=== PATIENT | male | born 1970 | race Caucasian/White ===

== ENCOUNTER 2017-07-02 00:05 | Emergency (ER) | payer MEDICAID ==
[2017-07-02] MEDS ORDERED: VANCOMYCIN PER PHARMACY MC ×2 (00:30)
[2017-07-02] MEDS ORDERED: PIP/TAZO PER PHARMACY MC ×2 (00:30)
[2017-07-02 00:33] LABS: ADD MAN DIFF? NO
[2017-07-02 00:37] LABS: BASO # 0.1 x10^3/uL (0.0-0.2); BASO % 1 % (0-3); EOS # 0.2 x10^3/uL (0.0-0.7); EOS % 1 % (0-3); HEMATOCRIT 43.4 % (39.0-53.0); HEMOGLOBIN 13.9 g/dL (13.0-17.5); LYMPH # 3.2 x10^3/uL (1.0-4.8); LYMPH % 24 % (24-48); MEAN CORPUSCULAR HEMOGLOBIN 25 pg (25-35); MEAN CORPUSCULAR HGB CONC 32 g/dL (31-37); MEAN CORPUSCULAR VOLUME 77 fL (79-100); MONO # 1.2 x10^3/uL (0.0-1.1); MONO % 9 % (0-9); NEUT # 8.6 x10^3uL (1.8-7.7); NEUT % 64 % (31-73); PLATELET COUNT 216 x10^3/uL (140-400); RED BLOOD COUNT 5.68 x10^6/uL (4.30-5.70); RED CELL DISTRIBUTION WIDTH 15.9 % (11.5-14.5); WHITE BLOOD COUNT 13.3 x10^3/uL (4.0-11.0)
[2017-07-02 00:54] LABS: LIPASE 159 U/L (73-393)
[2017-07-02] MEDS: IV NORMAL SALINE 1000ML BAG 1,000 ML IV ×2 (00:57)
[2017-07-02 01:02] LABS: LACTIC ACID 1.4 mmol/L (0.4-2.0)
[2017-07-02 01:03] LABS: TROPONINI 0.032 ng/mL (0.000-0.055)
[2017-07-02 01:21] LABS: BILIRUBIN,URINE NEGATIVE (NEG); CLARITY,URINE CLEAR; COLOR,URINE YELLOW; GLUCOSE,URINE NEGATIVE (NEG); NITRITE,URINE NEGATIVE (NEG); PROTEIN,URINE >=300 mg/dL (NEG-TRACE)
[2017-07-02] MEDS ORDERED: CONTRAST GIVEN MC ×2 (01:30)
[2017-07-02] MEDS: PIPERACILLIN/TAZOBACTAM 4.5 GM in IV NORMAL SALINE 100ML 100 ML IV ×2 (01:36→06:15)
[2017-07-02] MEDS: BENZONATATE 100 MG CAPSULE. PO ×2 (01:36)
[2017-07-02 01:47] LABS: AGAP ISTAT 15 mmol/L (6-14); BUN ISTAT 14 mg/dL (8-26); CHLORIDE ISTAT 95 mmol/L (98-110); CREATININE ISTAT 1.2 mg/dL (0.5-1.4); GLUCOSE ISTAT 134 mg/dL (70-99); HEMATOCRIT ISTAT 49 % (37-52); HEMOGLOBIN ISTAT 16.7 g/dL (14-18); ION CA ISTAT 1.15 mmol/L (1.13-1.32); POTASSIUM ISTAT 3.8 mmol/L (3.5-5.0); SODIUM ISTAT 140 mmol/L (135-145); TOT CO2 ISTAT 34 mmol/L (23-32)
[2017-07-02 01:54] LABS: BACTERIA,URINE 0 /HPF (0-FEW); RBC,URINE OCC /HPF (0-2); SQUAMOUS EPITHELIAL CELL,UR MOD /LPF; WBC,URINE OCC /HPF (0-4)
[2017-07-02] MEDS: IOHEXOL 300 MG/ML 100ML VIAL. IV ×2 (02:11)
[2017-07-02] MEDS: VANCOMYCIN 2 GM in IV DEXTROSE 5 %-0.2 % NACL 500 ML IV (02:22)
[2017-07-02 02:27] LABS: ANION GAP 5 (6-14); BLOOD UREA NITROGEN 14 mg/dL (8-26); BUN/CREATININE RATIO 13 (6-20); CALCIUM 8.9 mg/dL (8.5-10.1); CARBON DIOXIDE 35 mmol/L (21-32); CHLORIDE 99 mmol/L (98-107); CREATININE 1.1 mg/dL (0.7-1.3); GFR 72.4; GLUCOSE 142 mg/dL (70-99); POTASSIUM 3.8 mmol/L (3.5-5.1); SODIUM 139 mmol/L (136-145)
[2017-07-02 02:32] LABS: ALBUMIN 2.8 g/dL (3.4-5.0); ALBUMIN/GLOBULIN RATIO 0.6 (1.0-1.7); ALK PHOS 105 U/L (46-116); ALT (SGPT) 23 U/L (16-63); AST (SGOT) 25 U/L (15-37); TOTAL BILIRUBIN 0.8 mg/dL (0.2-1.0); TOTAL PROTEIN 7.6 g/dL (6.4-8.2)
[2017-07-02] MEDS: cloNIDine HCL 0.1 MG TABLET PO ×2 (03:05)
[2017-07-02 03:19] LABS: NT-PRO BNP 569 pg/mL (0-124)
[2017-07-02] MEDS: LABETALOL 20 MG/4 ML DISP.SYRIN. IVP ×2 (04:12)
[2017-07-02 04:47] LABS: BASE EXCESS ABG 4 mmol/L (-3-3); HCO3 ABG 33 mmol/L (21-28); PH ABG 7.28 (7.35-7.45); PO2 ABG 83 mmHg (75-108); SAT O2 ABG 95 % (92-99)
[2017-07-02 05:09] LABS: PCO2 ABG 73 mmHg (35-46)
[2017-07-02] MEDS ORDERED: IPRATRPIUM/ALBUTEROL 0.5/2.5MG 3 ML NEBU. ×2 (05:22)
[2017-07-02] MEDS: FUROSEMIDE 40 MG/4 ML VIAL. IVP ×2 (06:23)
== END 2017-07-02 07:35 | disposition short-term general hospital (02) ==
LOC: ER 00:05
DX: N49.2 Inflammatory disorders of scrotum (principal); I11.0 Hypertensive heart disease with heart failure; I50.9 Heart failure, unspecified; R09.02 Hypoxemia; N43.3 Hydrocele, unspecified; Z88.8 Allergy status to other drugs, medicaments and biological substances; Z91.041 Radiographic dye allergy status
CPT/HCPCS: 36415; 36600; 71045; 74177; 76870; 80047; 80053; 81001; 82805; 83605; 83690; 83880; 84484; 85025; 87040; 93005; 96361; 96365; 96366; 96368; 96375; 99285-25; 99291-25; J1940; J2543; J3370; J3490; J7030; Q9967

== ENCOUNTER 2018-01-01 16:02 | Inpatient (IN) | payer SELFPAY, MEDICAID ==
[2018-01-01] MEDS: fentaNYL PF VIAL 100 MCG/2 ML VIAL IV (17:01)
[2018-01-01 17:02] LABS: ADD MAN DIFF? NO
[2018-01-01 17:04] LABS: BASO # 0.1 x10^3/uL (0.0-0.2); BASO % 1 % (0-3); EOS # 0.1 x10^3/uL (0.0-0.7); EOS % 1 % (0-3); HEMATOCRIT 42.7 % (39.0-53.0); HEMOGLOBIN 13.8 g/dL (13.0-17.5); LYMPH # 2.7 x10^3/uL (1.0-4.8); LYMPH % 28 % (24-48); MEAN CORPUSCULAR HEMOGLOBIN 26 pg (25-35); MEAN CORPUSCULAR HGB CONC 32 g/dL (31-37); MEAN CORPUSCULAR VOLUME 81 fL (79-100); MONO # 0.9 x10^3/uL (0.0-1.1); MONO % 9 % (0-9); NEUT # 5.8 x10^3uL (1.8-7.7); NEUT % 61 % (31-73); PLATELET COUNT 211 x10^3/uL (140-400); RED BLOOD COUNT 5.31 x10^6/uL (4.30-5.70); RED CELL DISTRIBUTION WIDTH 15.9 % (11.5-14.5); WHITE BLOOD COUNT 9.6 x10^3/uL (4.0-11.0)
[2018-01-01 17:17] LABS: ANION GAP 2 (6-14); BLOOD UREA NITROGEN 13 mg/dL (8-26); BUN/CREATININE RATIO 13 (6-20); CARBON DIOXIDE 36 mmol/L (21-32); CHLORIDE 100 mmol/L (98-107); GFR 80.8; GLUCOSE 150 mg/dL (70-99); POTASSIUM 4.1 mmol/L (3.5-5.1); SODIUM 138 mmol/L (136-145)
[2018-01-01 17:23] LABS: ALBUMIN 2.6 g/dL (3.4-5.0); ALBUMIN/GLOBULIN RATIO 0.6 (1.0-1.7); ALK PHOS 95 U/L (46-116); ALT (SGPT) 49 U/L (16-63); AST (SGOT) 30 U/L (15-37); TOTAL BILIRUBIN 0.7 mg/dL (0.2-1.0); TOTAL PROTEIN 7.2 g/dL (6.4-8.2)
[2018-01-01 17:28] LABS: LACTIC ACID 1.2 mmol/L (0.4-2.0)
[2018-01-01] MEDS ORDERED: ONDANSETRON PF 4 MG/2 ML VIAL. IV (17:45)
[2018-01-01] MEDS ORDERED: fentaNYL PF VIAL 100 MCG/2 ML VIAL IV (17:45)
[2018-01-01] MEDS: VANCOMYCIN 2 GM in IV NORMAL SALINE 500ML BAG 500 ML IV (18:10)
[2018-01-01] MEDS: VANCOMYCIN PER PHARMACY MC (18:36)
[2018-01-01] MEDS: amLODIPine BESYLATE 10 MG TABLET PO (20:28)
[2018-01-01] MEDS: METOPROLOL SUCC 24HR ER 50 MG TAB.ER.24H. PO (20:29)
[2018-01-01] MEDS: LACTOBACILLUS RHAMNOSUS GG 1 CAPSULE. PO (22:02)
[2018-01-02] MEDS ORDERED: PNEUMOCOCCAL VAX SCREEN BY RX. MC (00:45)
[2018-01-02] MEDS: ACETAMINOPHEN 325 MG TABLET. PO (02:52)
[2018-01-02] MEDS: VANCOMYCIN 1.5 GM in IV NORMAL SALINE 500ML BAG 500 ML IV ×3 (02:53→18:12)
[2018-01-02] MEDS: KETOROLAC 30 MG/ML INJ. IV (04:11)
[2018-01-02 04:23] LABS: ADD MAN DIFF? NO
[2018-01-02 04:31] LABS: BASO # 0.1 x10^3/uL (0.0-0.2); BASO % 1 % (0-3); EOS # 0.2 x10^3/uL (0.0-0.7); EOS % 2 % (0-3); HEMATOCRIT 42.5 % (39.0-53.0); HEMOGLOBIN 13.6 g/dL (13.0-17.5); LYMPH # 2.2 x10^3/uL (1.0-4.8); LYMPH % 23 % (24-48); MEAN CORPUSCULAR HEMOGLOBIN 26 pg (25-35); MEAN CORPUSCULAR HGB CONC 32 g/dL (31-37); MEAN CORPUSCULAR VOLUME 81 fL (79-100); MONO # 1.1 x10^3/uL (0.0-1.1); MONO % 11 % (0-9); NEUT # 6.3 x10^3uL (1.8-7.7); NEUT % 64 % (31-73); PLATELET COUNT 219 x10^3/uL (140-400); RED BLOOD COUNT 5.25 x10^6/uL (4.30-5.70); RED CELL DISTRIBUTION WIDTH 15.7 % (11.5-14.5); WHITE BLOOD COUNT 9.9 x10^3/uL (4.0-11.0)
[2018-01-02 04:52] LABS: GFR 80.8
[2018-01-02] MEDS: amLODIPine BESYLATE 10 MG TABLET PO (08:15)
[2018-01-02] MEDS: LACTOBACILLUS RHAMNOSUS GG 1 CAPSULE. PO ×2 (08:15→20:59)
[2018-01-02] MEDS: METOPROLOL SUCC 24HR ER 50 MG TAB.ER.24H. PO ×2 (08:15→20:59)
[2018-01-02] MEDS: PNEUMOC CONJ VACC 23-VALENT 0.5 ML VIAL. VAX IM (08:18)
[2018-01-02] MEDS ORDERED: oxyCODONE/APAP 5/325 1 TAB TABLET PO (09:45)
[2018-01-02] MEDS: IV NORMAL SALINE 1000ML BAG 1,000 ML IV (10:13)
[2018-01-02] MEDS: NYSTATIN TOPICAL POWDER 15GM BOTTLE. TP ×2 (10:14→20:59)
[2018-01-02] MEDS ORDERED: METOPROLOL TARTRATE 5 MG/5 ML VIAL. IVP (12:00)
[2018-01-02] MEDS ORDERED: ONDANSETRON PF 4 MG/2 ML VIAL. IV (12:00)
[2018-01-02] MEDS: FUROSEMIDE 100 MG/10 ML VIAL. IVP (12:31)
[2018-01-02] MEDS: FUROSEMIDE 40 MG/4 ML VIAL. IVP (14:00)
[2018-01-02 17:21] LABS: MRSA BY PCR Negative (Negative)
[2018-01-02 18:05] LABS: VANC TR 18.2 mcg/mL (10.0-20.0)
[2018-01-02] MEDS: VANCOMYCIN PER PHARMACY MC (18:50)
[2018-01-03] MEDS: hydrALAZINE 20 MG/ML VIAL. IVP ×2 (00:56→05:21)
[2018-01-03] MEDS: VANCOMYCIN 1.25 GM in IV NORMAL SALINE 250ML 250 ML IV ×3 (02:04→18:21)
[2018-01-03 08:37] LABS: ANION GAP 0 (6-14); BLOOD UREA NITROGEN 14 mg/dL (8-26); CALCIUM 8.7 mg/dL (8.5-10.1); CARBON DIOXIDE 37 mmol/L (21-32); CHLORIDE 99 mmol/L (98-107); CREATININE 1.1 mg/dL (0.7-1.3); GFR 72.4; GLUCOSE 202 mg/dL (70-99); POTASSIUM 4.3 mmol/L (3.5-5.1); SODIUM 136 mmol/L (136-145)
[2018-01-03] MEDS: LACTOBACILLUS RHAMNOSUS GG 1 CAPSULE. PO ×2 (08:47→20:48)
[2018-01-03] MEDS: amLODIPine BESYLATE 10 MG TABLET PO (08:47)
[2018-01-03] MEDS: METOPROLOL SUCC 24HR ER 50 MG TAB.ER.24H. PO ×2 (08:47→20:48)
[2018-01-03] MEDS: NYSTATIN TOPICAL POWDER 15GM BOTTLE. TP ×2 (08:48→20:48)
[2018-01-03] MEDS: FUROSEMIDE 40 MG/4 ML VIAL. IVP ×2 (08:48→14:00)
[2018-01-03] MEDS: LISINOPRIL 20 MG TABLET PO (12:00)
[2018-01-03] MEDS: VANCOMYCIN PER PHARMACY MC ×2 (12:58→13:00)
[2018-01-04] MEDS: VANCOMYCIN 1.25 GM in IV NORMAL SALINE 250ML 250 ML IV ×3 (02:30→18:11)
[2018-01-04] MEDS: LACTOBACILLUS RHAMNOSUS GG 1 CAPSULE. PO ×2 (08:47→21:20)
[2018-01-04] MEDS: FUROSEMIDE 40 MG/4 ML VIAL. IVP ×2 (08:48→15:48)
[2018-01-04] MEDS: amLODIPine BESYLATE 10 MG TABLET PO (08:48)
[2018-01-04] MEDS: NYSTATIN TOPICAL POWDER 15GM BOTTLE. TP ×2 (08:49→21:00)
[2018-01-04] MEDS: LISINOPRIL 20 MG TABLET PO (08:49)
[2018-01-04] MEDS: METOPROLOL SUCC 24HR ER 50 MG TAB.ER.24H. PO ×2 (08:49→21:21)
[2018-01-04] MEDS: hydroCHLOROthiazide 25 MG TABLET PO (10:05)
[2018-01-04] MEDS: VANCOMYCIN PER PHARMACY MC (14:00)
[2018-01-05] MEDS: VANCOMYCIN 1.25 GM in IV NORMAL SALINE 250ML 250 ML IV ×3 (02:09→18:07)
[2018-01-05] MEDS: hydrALAZINE 20 MG/ML VIAL. IVP (04:04)
[2018-01-05] MEDS: LACTOBACILLUS RHAMNOSUS GG 1 CAPSULE. PO ×2 (09:21→20:04)
[2018-01-05] MEDS: FUROSEMIDE 40 MG/4 ML VIAL. IVP ×2 (09:21→14:30)
[2018-01-05] MEDS: METOPROLOL SUCC 24HR ER 50 MG TAB.ER.24H. PO ×2 (09:22→20:03)
[2018-01-05] MEDS: amLODIPine BESYLATE 10 MG TABLET PO (09:22)
[2018-01-05] MEDS: LISINOPRIL 20 MG TABLET PO (09:22)
[2018-01-05] MEDS: hydroCHLOROthiazide 25 MG TABLET PO (09:23)
[2018-01-05] MEDS: NYSTATIN TOPICAL POWDER 15GM BOTTLE. TP ×2 (09:23→20:05)
[2018-01-05] MEDS: VANCOMYCIN PER PHARMACY MC (17:01)
[2018-01-06] MEDS: VANCOMYCIN 1.25 GM in IV NORMAL SALINE 250ML 250 ML IV (01:26)
[2018-01-06] MEDS: amLODIPine BESYLATE 10 MG TABLET PO (08:43)
[2018-01-06] MEDS: LISINOPRIL 20 MG TABLET PO (08:43)
[2018-01-06] MEDS: hydroCHLOROthiazide 25 MG TABLET PO (08:43)
[2018-01-06] MEDS: LACTOBACILLUS RHAMNOSUS GG 1 CAPSULE. PO ×2 (08:43→20:36)
[2018-01-06] MEDS: METOPROLOL SUCC 24HR ER 50 MG TAB.ER.24H. PO ×2 (08:44→20:38)
[2018-01-06] MEDS: FUROSEMIDE 40 MG/4 ML VIAL. IVP (08:44)
[2018-01-06] MEDS: NYSTATIN TOPICAL POWDER 15GM BOTTLE. TP ×2 (08:54→20:42)
[2018-01-06 10:04] LABS: VANC TR 22.8 mcg/mL (10.0-20.0)
[2018-01-06] MEDS: VANCOMYCIN PER PHARMACY MC ×2 (10:30→10:35)
[2018-01-06] MEDS ORDERED: VANCOMYCIN 1.25 GM in IV NORMAL SALINE 250ML 250 ML IV (14:00)
[2018-01-06] MEDS ORDERED: FUROSEMIDE 100 MG/10 ML VIAL. IVP ×2 (14:00)
[2018-01-06] MEDS: CIPROFLOXACIN HCL 250 MG TABLET. PO ×2 (14:44→20:37)
[2018-01-06] MEDS: FUROSEMIDE 100 MG/10 ML VIAL. IVP (15:30)
[2018-01-06] MEDS: AMOXICILLIN/K CLAV 875/125MG TABLET. PO (20:37)
[2018-01-06] MEDS ORDERED: ENOXAPARIN 40 MG/0.4 ML SYRINGE. SQ (21:00)
[2018-01-07 05:17] LABS: ANION GAP 2 (6-14); BLOOD UREA NITROGEN 18 mg/dL (8-26); CALCIUM 9.6 mg/dL (8.5-10.1); CARBON DIOXIDE 38 mmol/L (21-32); CHLORIDE 98 mmol/L (98-107); CREATININE 1.1 mg/dL (0.7-1.3); GFR 72.4; GLUCOSE 186 mg/dL (70-99); POTASSIUM 4.3 mmol/L (3.5-5.1); SODIUM 138 mmol/L (136-145)
[2018-01-07] MEDS: AMOXICILLIN/K CLAV 875/125MG TABLET. PO (08:34)
[2018-01-07] MEDS: CIPROFLOXACIN HCL 250 MG TABLET. PO (08:34)
[2018-01-07] MEDS: amLODIPine BESYLATE 10 MG TABLET PO (08:35)
[2018-01-07] MEDS: hydroCHLOROthiazide 25 MG TABLET PO (08:35)
[2018-01-07] MEDS: METOPROLOL SUCC 24HR ER 50 MG TAB.ER.24H. PO (08:35)
[2018-01-07] MEDS: LACTOBACILLUS RHAMNOSUS GG 1 CAPSULE. PO (08:36)
[2018-01-07] MEDS: FUROSEMIDE 100 MG/10 ML VIAL. IVP ×2 (08:37→15:36)
[2018-01-07] MEDS: NYSTATIN TOPICAL POWDER 15GM BOTTLE. TP (08:38)
[2018-01-07] MEDS: LISINOPRIL 20 MG TABLET PO (10:14)
== END 2018-01-07 20:26 | disposition home or self-care (01) | DRG 871 ==
LOC: ER 16:02 → 4 NORTH 17:39
DX: A41.9 Sepsis, unspecified organism (principal); J96.91 Respiratory failure, unspecified with hypoxia; Z68.45 Body mass index [BMI] 70 or greater, adult; E66.01 Morbid (severe) obesity due to excess calories; E11.22 Type 2 diabetes mellitus with diabetic chronic kidney disease; I12.9 Hypertensive chronic kidney disease with stage 1 through stage 4 chronic kidney disease, or unspecified chronic kidney disease; G47.33 Obstructive sleep apnea (adult) (pediatric); N45.1 Epididymitis; N18.9 Chronic kidney disease, unspecified; B37.2 Candidiasis of skin and nail; N50.89 Other specified disorders of the male genital organs; N43.3 Hydrocele, unspecified; Z82.49 Family history of ischemic heart disease and other diseases of the circulatory system; Z79.899 Other long term (current) drug therapy; Z83.3 Family history of diabetes mellitus; Z88.8 Allergy status to other drugs, medicaments and biological substances; Z23 Encounter for immunization
CPT/HCPCS: 36415; 71046; 76870; 80048; 80053; 80202; 82565; 83605; 85025; 87040; 87641; 90732; 93970; 96365; 96375; 97166-GO; 99285; 99285-25; J0360; J1650; J1885; J1940; J3010; J3370; J7030; J7040; J7050

== ENCOUNTER 2018-09-29 15:28 | Inpatient (IN) | payer SELFPAY ==
[~2018-09-29] VITALS: Ht 177.8 cm; Wt 235.5 kg
[~2018-09-29 15:28] MED LIST: ACET325T9 PO; AMLO10TA8 PO; AMOX1TAB61 PO; CEPH-264 PO; CIPR500T94 PO; DOXY100C14 PO; FURO-68 PO; FURO-69 PO; HYDR-2761 PO; IBUP-985 PO; LACT1CAP19 PO; LINE600T PO; LISI-130 PO; LISI-334 PO; LISI1TAB5 PO; METO50TA29 PO; NYST60PO TP; OXYC1TAB7 PO; TAMS0.4C97 PO
[2018-09-29] MEDS ORDERED: fentaNYL PF VIAL 100 MCG/2 ML VIAL IV PRN ×2 (16:00→19:00)
[2018-09-29] MEDS ORDERED: VANCOMYCIN PER PHARMACY MC ONE (16:00)
[2018-09-29] MEDS ORDERED: PIPERACILLIN/TAZOBACTAM 4.5 GM in IV NORMAL SALINE 100ML 100 ML IV ONE (16:00)
[2018-09-29 16:07] LABS: BILIRUBIN,URINE NEGATIVE (NEG); CLARITY,URINE CLEAR; COLOR,URINE YELLOW; NITRITE,URINE NEGATIVE (NEG); PROTEIN,URINE >=300 mg/dL (NEG-TRACE)
--- NOTE | 2018-09-29 16:12 | PHYS DOC ---
Past Medical History Past Medical History: COPD, Hypertension Additional Past Medical Histor: OBESITY, INFECTED SCROTUM Past Surgical History: Other Additional Past Surgical Histo: SCROTAL SX; Alcohol Use: Rarely Drug Use: Marijuana Adult General Chief Complaint Chief Complaint: TESTICULAR PAIN OR INJURY [facility] HPI Patient is a 48 year old morbidly obese male patient with history of hypertension, COPD who presents to the ED today complaining of testicular swelling and redness that began 3 days ago. Patient states he has history of cellulitis to his testicles. Patient denies any fever, denies any abdominal pain. He states he has history of a collapsed lung and would like it to be checked out to make sure it has not collapsed. Denies any chest pain but states he has chronic SOA. Denies any difficulty voiding. Review of Systems Review of Systems Constitutional: Denies fever or chills [] Eyes: Denies change in visual acuity, redness, or eye pain [] HENT: Denies nasal congestion or sore throat [] Respiratory: Reports history of collapsed lung, chronic shortness of breath. Denies cough Cardiovascular: No additional information not addressed in HPI [] GI: Denies abdominal pain, nausea, vomiting, bloody stools or diarrhea [] Male : Reports testicular swelling and redness : Denies dysuria or hematuria [] Musculoskeletal: Denies back pain or joint pain [] Integument: Denies rash or skin lesions [] Neurologic: Denies headache, focal weakness or sensory changes [] All other systems were reviewed and found to be within normal limits, except as documented in this note. Current Medications Current Medications Current Medications Medications (Trade) Dose Ordered [facility] Start Time Stop Time Status Last Admin Dose Admin Fentanyl Citrate (Fentanyl 2ml Vial) 50 mcg PRN Q15MIN PRN 09/29/18 16:00 09/29/18 22:00 09/29/18 17:51 50 MCG Ondansetron HCl (Zofran) 4 mg STK-MED ONCE 09/29/18 17:00 09/29/18 17:01 DC Piperacillin Sod/ Tazobactam Sod 4.5 gm/Sodium Chloride 100 ml @ 200 mls/hr 1X ONCE 09/29/18 16:00 09/29/18 16:29 DC 09/29/18 16:51 200 MLS/HR Sodium Chloride 1,000 ml @ 2,190 mls/hr Q28M 09/29/18 15:54 09/29/18 16:54 DC 09/29/18 17:52 2,190 MLS/HR Vancomycin HCl (Vanco Per Pharmacy) 1 each 1X ONCE 09/29/18 16:00 09/29/18 18:10 DC Vancomycin HCl 2 gm/Sodium Chloride 500 ml @ 250 mls/hr 1X ONCE 09/29/18 16:15 09/29/18 18:14 DC 09/29/18 17:10 250 MLS/HR Allergies Allergies Allergies Coded Allergies Type Severity Reaction Last Updated Verified morphine Allergy Intermediate 09/29/18 Yes Bleach (Sodium Hypochlorite) Adverse Reaction Intermediate 02/13/18 Yes piperacillin Adverse Reaction Intermediate INSTANT VOMITING 09/29/18 Yes tazobactam Adverse Reaction Intermediate INSTANT VOMITING 09/29/18 Yes Physical Exam Physical Exam Constitutional: Morbidly obese patient no acute distress, non-toxic appearance. [] HENT: Normocephalic, atraumatic, bilateral external ears normal, oropharynx moist, no oral exudates, nose normal. [] Eyes: PERRLA, EOMI, conjunctiva normal, no discharge. [] Neck: Normal range of motion, no tenderness, supple, no stridor. [] Cardiovascular:Heart rate regular rhythm, no murmur [] Lungs & Thorax: Bilateral breath sounds clear to auscultation [] Abdomen: Bowel sounds normal, soft, no tenderness, no masses, no pulsatile masses. [] Male exam Morbidly obese patient with moderately swollen testicles, lower abdomen also appears swollen, there is redness of the testicles all the way to the lower abdomen. Skin: Warm, dry, no erythema, no rash. [] Back: No tenderness, no CVA tenderness. [] Extremities: No tenderness, no cyanosis, no clubbing, ROM intact, no edema. [] Neurologic: Alert and oriented X 3, normal motor function, normal sensory function, no focal deficits noted. [] Psychologic: Affect normal, judgement normal, mood normal. [] Current Patient Data Vital Signs Vital Signs Date Time Temp Pulse Resp B/P (MAP) Pulse Ox O2 Delivery O2 Flow Rate FiO2 09/29/18 18:14 108 20 165/81 (109) 89 Nasal Cannula 4.0 09/29/18 16:25 99.2 99.2 Lab Values Laboratory Tests Test 09/29/18 15:30 09/29/18 16:35 Urine Collection Type Unknown Urine Color Yellow Urine Clarity Clear Urine pH 6.0 Urine Specific [place] 1.025 Urine Protein >=300 mg/dL (NEG-TRACE) Urine Glucose (UA) 100 mg/dL (NEG) Urine Ketones (Stick) Negative mg/dL (NEG) Urine Blood Trace (NEG) Urine Nitrite Negative (NEG) Urine Bilirubin Negative (NEG) Urine Urobilinogen Dipstick 1.0 mg/dL (0.2 mg/dL) Urine Leukocyte Esterase Negative (NEG) Urine RBC 3-5 /HPF (0-2) Urine WBC 1-4 /HPF (0-4) Urine Squamous Epithelial Cells Many /LPF Urine Transitional Epithelial Cells Few /LPF Urine Amorphous Sediment Present /HPF Urine Bacteria Few /HPF (0-FEW) Urine Hyaline Casts Many /HPF Urine Granular Casts Few /HPF Urine Mucus Marked /LPF White Blood Count 9.2 x10^3/uL (4.0-11.0) Red Blood Count 5.35 x10^6/uL (4.30-5.70) Hemoglobin 13.4 g/dL (13.0-17.5) Hematocrit 43.1 % (39.0-53.0) Mean Corpuscular Volume 80 fL (79-100) Mean Corpuscular Hemoglobin 25 pg (25-35) Mean Corpuscular Hemoglobin Concent 31 g/dL (31-37) Red Cell Distribution Width 18.4 % (11.5-14.5) H Platelet Count 185 x10^3/uL (140-400) Neutrophils (%) (Auto) 63 % (31-73) Lymphocytes (%) (Auto) 25 % (24-48) Monocytes (%) (Auto) 10 % (0-9) H Eosinophils (%) (Auto) 1 % (0-3) Basophils (%) (Auto) 1 % (0-3) Neutrophils # (Auto) 5.8 x10^3uL (1.8-7.7) Lymphocytes # (Auto) 2.3 x10^3/uL (1.0-4.8) Monocytes # (Auto) 1.0 x10^3/uL (0.0-1.1) Eosinophils # (Auto) 0.1 x10^3/uL (0.0-0.7) Basophils # (Auto) 0.1 x10^3/uL (0.0-0.2) Prothrombin Time 14.4 SEC (11.7-14.0) H Prothrombin Time INR 1.2 (0.8-1.1) H PTT 27 SEC (24-38) Sodium Level 140 mmol/L (136-145) Potassium Level 3.9 mmol/L (3.5-5.1) Chloride Level 100 mmol/L (98-107) Carbon Dioxide Level 38 mmol/L (21-32) H Anion Gap 2 (6-14) L Blood Urea Nitrogen 23 mg/dL (8-26) Creatinine 1.5 mg/dL (0.7-1.3) H Estimated GFR (Cockcroft-Gault) 50.4 BUN/Creatinine Ratio 15 (6-20) Glucose Level 176 mg/dL (70-99) H Lactic Acid Level 2.0 mmol/L (0.4-2.0) Calcium Level 9.1 mg/dL (8.5-10.1) Total Bilirubin 0.7 mg/dL (0.2-1.0) Aspartate Amino Transferase (AST) 19 U/L (15-37) Alanine Aminotransferase (ALT) 20 U/L (16-63) Alkaline Phosphatase 92 U/L (46-116) Total Protein 6.8 g/dL (6.4-8.2) Albumin 2.4 g/dL (3.4-5.0) L Albumin/Globulin Ratio 0.5 (1.0-1.7) L Procalcitonin < 0.10 ng/mL (0.00-0.10) Laboratory Tests 09/29/18 16:35 Laboratory Tests 09/29/18 16:35 EKG EKG Patient was tachycardic on arrival with HR in the 120's EKG was obtained EKG interpreted by Dr. Pa Sinus tachycardia, HR 114 no STEMI[] Radiology/Procedures Radiology/Procedures [] Course & Med Decision Making Course & Med Decision Making Pertinent Labs and Imaging studies reviewed. (See chart for details) This is a 48-year-old male patient presenting to the ED today complaining of testicular swelling and redness that began 3 days ago, physical exam of testicles consistent with cellulitis, patient has previous history of cellulitis to the testicles and has had to be admitted for IV antibiotics specifically vancomycin. He was also requested we check his lungs to make sure they did not collapse, he has history of collapsed lung per his statement. Chest x-ray was done, no pneumothorax noted. CBC with a normal WBC, CMP with creatinine of 1.5, BUN is normal. Scrotal/testicular ultrasound was negative for Marina gangrene Patient was started on sepsis protocol on arrival to the ED including vancomycin, they attempted to give him Zosyn, he vomited during the infusion which was stopped right away. Consulted with Dr. Virk who accepted patient for admission. He requested routine consult to infectious disease and urology which were done. Dragon Disclaimer Dragon Disclaimer This electronic medical record was generated, in whole or in part, using a voice recognition dictation system. Departure Departure Impression: Primary Impression: Cellulitis of scrotum Additional Impressions: Obesity with serious comorbidity Hypertension Disposition: 09 ADMITTED INPATIENT Condition: STABLE Referrals: NO PCP (PCP) Problem Qualifiers Additional Impressions: Obesity with serious comorbidity Obesity type: unspecified obesity type Obesity classification: adult class 3 (BMI >= 40) Body mass index: BMI 60.0-69.9 Qualified Codes: E66.01 - Morbid (severe) obesity due to excess calories; Z68.44 - Body mass index (bmi) 60.0-69.9, adult Hypertension Hypertension type: unspecified Qualified Codes: I10 - Essential (primary) hypertension ANALILIA SMITH APRN Sep 29, 2018 16:12
[2018-09-29] MEDS ORDERED: VANCOMYCIN 2 GM in IV NORMAL SALINE 500ML BAG 500 ML IV ONE (16:15)
[2018-09-29 16:16] LABS: SQUAMOUS EPITHELIAL CELL,UR MANY /LPF
[2018-09-29 16:17] LABS: AMORPHOUS SEDIMENT,UR PRESENT /HPF; GRANULAR CASTS,URINE FEW /HPF; HYALINE CASTS, URINE MANY /HPF
[2018-09-29 16:19] LABS: BACTERIA,URINE FEW /HPF (0-FEW)
--- NOTE | 2018-09-29 16:28 | RAD ---
AP chest. HISTORY: Short of breath AP view was taken of the chest. The heart is enlarged. There is not evidence of heart failure. There is no pleural effusion. There has been a mild improvement compared to the chest x-ray from June 04, 2018. A pericardial effusion is possible, the patient had a pericardial effusion on the CT from June 05. PA and lateral views would be of benefit. There are no confluent infiltrates. IMPRESSION: 1. Large cardiac silhouette. 2. No confluent infiltrates. Electronically signed by: Kayden Mcdowell MD (09/29/2018 4:25 PM) [id number]
[2018-09-29 16:50] LABS: BASO # 0.1 x10^3/uL (0.0-0.2); BASO % 1 % (0-3); EOS # 0.1 x10^3/uL (0.0-0.7); EOS % 1 % (0-3); HEMATOCRIT 43.1 % (39.0-53.0); HEMOGLOBIN 13.4 g/dL (13.0-17.5); LYMPH # 2.3 x10^3/uL (1.0-4.8); LYMPH % 25 % (24-48); MEAN CORPUSCULAR HEMOGLOBIN 25 pg (25-35); MEAN CORPUSCULAR HGB CONC 31 g/dL (31-37); MEAN CORPUSCULAR VOLUME 80 fL (79-100); MONO % 10 % (0-9); NEUT # 5.8 x10^3uL (1.8-7.7); NEUT % 63 % (31-73); PLATELET COUNT 185 x10^3/uL (140-400); RED BLOOD COUNT 5.35 x10^6/uL (4.30-5.70); RED CELL DISTRIBUTION WIDTH 18.4 % (11.5-14.5); WHITE BLOOD COUNT 9.2 x10^3/uL (4.0-11.0)
[2018-09-29 16:56] LABS: CALCIUM 9.1 mg/dL (8.5-10.1); CREATININE 1.5 mg/dL (0.7-1.3); GFR 50.4; POTASSIUM 3.9 mmol/L (3.5-5.1)
[2018-09-29 16:59] LABS: PROTHROMBIN TIME PATIENT 14.4 SEC (11.7-14.0)
[2018-09-29] MEDS ORDERED: ONDANSETRON PF 4 MG/2 ML VIAL. ONE (17:00)
[2018-09-29 17:02] LABS: ALBUMIN 2.4 g/dL (3.4-5.0); ALBUMIN/GLOBULIN RATIO 0.5 (1.0-1.7); TOTAL BILIRUBIN 0.7 mg/dL (0.2-1.0); TOTAL PROTEIN 6.8 g/dL (6.4-8.2)
[2018-09-29] MEDS: IV NORMAL SALINE 1000ML BAG 1,000 ML IV SCH ×4 (17:52→21:02)
[2018-09-29] MEDS ORDERED: ACETAMINOPHEN 325 MG TABLET. PO PRN (19:00)
[2018-09-29] MEDS ORDERED: ONDANSETRON PF 4 MG/2 ML VIAL. IV PRN (19:00)
--- NOTE | 2018-09-29 19:01 | RAD ---
TESTICULAR/SCROTUM History: Scrotal swelling Comparison: June 03, 2018 Findings: Multiple grayscale, color, and duplex spectral analysis waveform images of the testicles and scrotum are submitted. There is ongoing severe scrotal wall thickening/edema. No new focal fluid collection is seen in this region. There is continued hyperechogenicity of the epididymes bilaterally and small bilateral hydroceles. No new focal intratesticular mass is demonstrated. There is normal color flow and low resistance vascularity of interrogated intratesticular vessels bilaterally. Right testicle measured 3.8 x 2.6 x 3.1 cm. Left testicle measured 4 x 2.1 x 2.8 cm. Impression: 1. As seen on previous May 2018 exam, there is severe scrotal wall edema/thickening. There is persistent nonspecific hyperechogenicity of the epididymis bilaterally and small bilateral hydroceles. Electronically signed by: Daniel Horner MD (09/29/2018 6:58 PM) [facility]
[2018-09-29 19:50] VITALS: BP 137/77
[2018-09-29] MEDS ORDERED: No home meds (20:59)
[2018-09-29] MEDS ORDERED: VANCOMYCIN PER PHARMACY MC PRN (21:00)
[2018-09-29] MEDS ORDERED: cefTRIAXone IV Push 1 GM VIAL. IVP SCH (21:00)
--- NOTE | 2018-09-29 21:04 | PDOC1 ---
History and Physical Date of Admission: Date of Admission DATE: 09/29/18 TIME: 20:56 Chief Complaint: Problems: (1) Hyperglycemia (2) Cellulitis (3) Obesity (4) Sepsis (5) Bilateral cellulitis of lower leg (6) Epididymitis (7) Cellulitis of scrotum (8) Acute renal failure (9) Obesity with serious comorbidity (10) Cellulitis of scrotum (11) Hypertension Chief Complain: Scrotal cellulitis and swelling and shortness of breath History of Present Illness: HPI: Patient is a morbidly morbidly obese white male who has chronic history of scrotal cellulitis and COPD He basically presents today for evaluation of his scrotal cellulitis and he's been short of breath He wanted to make sure he didn't have a pneumothorax We did a chest x-ray he does not have a pneumothorax but he does have an enlarged heart and appears to be in heart failure clinically His scrotum is the size of a softball Lower extremity are quite infected as well with chronic venous stasis and cellulitis Did an ultrasound of his scrotum the testicles are with hydroceles and the scrotal wall is very chronically thickened He rates his symptoms at 10 out 10 years associated weakness started about 3 days ago describes as agonizing he try to keep increase his home meds for that and work Discussed the case with the ER physician Yung with the patient in consult genitourinary medicine pulmonary cardiology and infectious disease Past Medical/Surgical History: PMH/PSH: Past Medical History: COPD, Hypertension Additional Past Medical Histor: OBESITY, INFECTED SCROTUM Past Surgical History: Other Additional Past Surgical Histo: SCROTAL SX; Alcohol Use: Rarely Drug Use: Marijuana Allergies: Allergies: Coded Allergies: morphine (Verified Allergy, Intermediate, 09/29/18) Bleach (Sodium Hypochlorite) (Verified Adverse Reaction, Intermediate, 02/13/18) piperacillin (Verified Adverse Reaction, Intermediate, INSTANT VOMITING, 09/29/18) tazobactam (Verified Adverse Reaction, Intermediate, INSTANT VOMITING, 09/29/18) Family History: Family History: CAD Social History: Social Hisoty: He quit smoking he does not drink or take drugs states he does not work he stays at home and plays video games Current Medications: Current Medications Current Medications Sodium Chloride 1,000 ml @ 2,190 mls/hr Q28M IV Last administered on 09/29/18at 17:52; Start 09/29/18 at 15:54; Stop 09/29/18 at 16:54; Status DC Piperacillin Sod/ Tazobactam Sod 4.5 gm/Sodium Chloride 100 ml @ 200 mls/hr 1X ONCE IV Last administered on 09/29/18at 16:51; Start 09/29/18 at 16:00; Stop 09/29/18 at 16:29; Status DC Vancomycin HCl (Vanco Per Pharmacy) 1 each 1X ONCE [facility] ; Start 09/29/18 at 16:00; Stop 09/29/18 at 18:10; Status DC Fentanyl Citrate (Fentanyl 2ml Vial) 50 mcg PRN Q15MIN PRN IV PAIN GREATER THAN 3/10 Last administered on 09/29/18at 17:51; Start 09/29/18 at 16:00; Stop 09/29/18 at 22:00 Vancomycin HCl 2 gm/Sodium Chloride 500 ml @ 250 mls/hr 1X ONCE IV Last administered on 09/29/18at 17:10; Start 09/29/18 at 16:15; Stop 09/29/18 at 18:14; Status DC Ondansetron HCl (Zofran) 4 mg STK-MED ONCE .ROUTE ; Start 09/29/18 at 17:00; Stop 09/29/18 at 17:01; Status DC Ondansetron HCl (Zofran) 4 mg PRN Q8HRS PRN IV NAUSEA/VOMITING; Start 09/29/18 at 19:00; Stop 09/30/18 at 18:59 Fentanyl Citrate (Fentanyl 2ml Vial) 50 mcg PRN Q1HR PRN IV PAIN; Start 09/29/18 at 19:00; Stop 09/30/18 at 18:59 Acetaminophen (Tylenol) 650 mg PRN Q4HRS PRN PO FEVER; Start 09/29/18 at 19:00; Stop 09/30/18 at 18:59 Clonidine HCl (Catapres) 0.1 mg PRN TID PRN PO HYPERTENSION, SEE COMMENTS; Start 09/29/18 at 19:00 Ceftriaxone Sodium (Rocephin) 1 gm Q24H IVP Last administered on 09/29/18at 20:47; Start 09/29/18 at 21:00 Sodium Chloride 1,000 ml @ 50 mls/hr Q20H IV ; Start 09/29/18 at 23:00 Active Scripts Active Culturelle (Lactobacillus Rhamnosus Gg) 1 Each Cap.sprink 1 Cap PO BID 7 Days Flomax (Tamsulosin Hcl) 0.4 Mg Cap.er.24h 0.4 Mg PO DAILY 30 Days Zyvox (Linezolid) 600 Mg Tablet 600 Mg PO BID 7 Days Augmentin 875-125 Tablet (Amoxicillin/Potassium Clav) 1 Each Tablet 1 Tab PO BID Doxycycline Monohydrate 100 Mg Capsule 1 Cap PO BID Oxycodone-Acetaminophen 5-325 (Oxycodone Hcl/Acetaminophen) 1 Each Tablet 1 Tab PO PRN Q4HRS PRN 30 Days Amlodipine Besylate 10 Mg Tablet 10 Mg PO DAILY 30 Days Metoprolol Succinate 50 Mg Tab.er.24h 50 Mg PO BID 30 Days ROS: Review of Systems Review of System REVIEW OF SYSTEMS: GENERAL: Denies weakness SKIN: No bruising, hair changes or rashes. EYES: No blurred, double or loss of vision. NOSE AND THROAT: No history of nosebleeds, hoarseness or sore throat. HEART: No history of palpitations, chest pain or shortness of breath on exertion. LUNGS: He complains of shortness of breath. GASTROINTESTINAL: Denies changes in appetite, nausea, vomiting, diarrhea or constipation. GENITOURINARY: He complains of severe scrotal swelling NEUROLOGIC: Denies history of numbness, tingling, tremor or weakness. PSYCHIATRIC: No history of panic, anxiety or depression. ENDOCRINE: No history of heat or cold intolerance, polyuria or polydipsia. EXTREMITIES: He complains of edema and chronic venous stasis and erythema and pain Physical Exam: Vital Signs: Vital Signs Date Time Temp Pulse Resp B/P (MAP) Pulse Ox O2 Delivery O2 Flow Rate FiO2 09/29/18 19:50 97.8 130 20 137/77 (97) 92 Nasal Cannula 4.0 97.8 Physcial Exam: GEN.: Morbidly obese but very pleasant his hair is dyed blue HEENT: Head is normocephalic, atraumatic NECK: Supple, no JVD LUNGS: Very diminished with slight crackles HEART: RRR, S1, S2 with a soft S3 present. Peripheral pulses intact ABDOMEN: morbidly obese EXTREMITIES: Both lower extremities have cellulitis and erythema in full touch and generalized lymphedema NEUROLOGIC: Normal speech, normal tone. A&O x 3 PSYCHIATRIC: Normal affect, normal mood. Stable SKIN: Both lower extremities have cellulitis Labs: Labs: Laboratory Tests Test 09/29/18 15:30 09/29/18 16:35 Urine Collection Type Unknown Urine Color Yellow Urine Clarity Clear Urine pH 6.0 Urine Specific [place] 1.025 Urine Protein >=300 mg/dL (NEG-TRACE) Urine Glucose (UA) 100 mg/dL (NEG) Urine Ketones (Stick) Negative mg/dL (NEG) Urine Blood Trace (NEG) Urine Nitrite Negative (NEG) Urine Bilirubin Negative (NEG) Urine Urobilinogen Dipstick 1.0 mg/dL (0.2 mg/dL) Urine Leukocyte Esterase Negative (NEG) Urine RBC 3-5 /HPF (0-2) Urine WBC 1-4 /HPF (0-4) Urine Squamous Epithelial Cells Many /LPF Urine Transitional Epithelial Cells Few /LPF Urine Amorphous Sediment Present /HPF Urine Bacteria Few /HPF (0-FEW) Urine Hyaline Casts Many /HPF Urine Granular Casts Few /HPF Urine Mucus Marked /LPF White Blood Count 9.2 x10^3/uL (4.0-11.0) Red Blood Count 5.35 x10^6/uL (4.30-5.70) Hemoglobin 13.4 g/dL (13.0-17.5) Hematocrit 43.1 % (39.0-53.0) Mean Corpuscular Volume 80 fL (79-100) Mean Corpuscular Hemoglobin 25 pg (25-35) Mean Corpuscular Hemoglobin Concent 31 g/dL (31-37) Red Cell Distribution Width 18.4 % (11.5-14.5) Platelet Count 185 x10^3/uL (140-400) Neutrophils (%) (Auto) 63 % (31-73) Lymphocytes (%) (Auto) 25 % (24-48) Monocytes (%) (Auto) 10 % (0-9) Eosinophils (%) (Auto) 1 % (0-3) Basophils (%) (Auto) 1 % (0-3) Neutrophils # (Auto) 5.8 x10^3uL (1.8-7.7) Lymphocytes # (Auto) 2.3 x10^3/uL (1.0-4.8) Monocytes # (Auto) 1.0 x10^3/uL (0.0-1.1) Eosinophils # (Auto) 0.1 x10^3/uL (0.0-0.7) Basophils # (Auto) 0.1 x10^3/uL (0.0-0.2) Prothrombin Time 14.4 SEC (11.7-14.0) Prothromb Time International Ratio 1.2 (0.8-1.1) Activated Partial Thromboplast Time 27 SEC (24-38) Sodium Level 140 mmol/L (136-145) Potassium Level 3.9 mmol/L (3.5-5.1) Chloride Level 100 mmol/L (98-107) Carbon Dioxide Level 38 mmol/L (21-32) Anion Gap 2 (6-14) Blood Urea Nitrogen 23 mg/dL (8-26) Creatinine 1.5 mg/dL (0.7-1.3) Estimated GFR (Cockcroft-Gault) 50.4 BUN/Creatinine Ratio 15 (6-20) Glucose Level 176 mg/dL (70-99) Lactic Acid Level 2.0 mmol/L (0.4-2.0) Calcium Level 9.1 mg/dL (8.5-10.1) Total Bilirubin 0.7 mg/dL (0.2-1.0) Aspartate Amino Transf (AST/SGOT) 19 U/L (15-37) Alanine Aminotransferase (ALT/SGPT) 20 U/L (16-63) Alkaline Phosphatase 92 U/L (46-116) Total Protein 6.8 g/dL (6.4-8.2) Albumin 2.4 g/dL (3.4-5.0) Albumin/Globulin Ratio 0.5 (1.0-1.7) Procalcitonin < 0.10 ng/mL (0.00-0.10) Laboratory Tests Test 09/29/18 15:30 09/29/18 16:35 Urine Collection Type Unknown Urine Color Yellow Urine Clarity Clear Urine pH 6.0 Urine Specific [place] 1.025 Urine Protein >=300 mg/dL (NEG-TRACE) Urine Glucose (UA) 100 mg/dL (NEG) Urine Ketones (Stick) Negative mg/dL (NEG) Urine Blood Trace (NEG) Urine Nitrite Negative (NEG) Urine Bilirubin Negative (NEG) Urine Urobilinogen Dipstick 1.0 mg/dL (0.2 mg/dL) Urine Leukocyte Esterase Negative (NEG) Urine RBC 3-5 /HPF (0-2) Urine WBC 1-4 /HPF (0-4) Urine Squamous Epithelial Cells Many /LPF Urine Transitional Epithelial Cells Few /LPF Urine Amorphous Sediment Present /HPF Urine Bacteria Few /HPF (0-FEW) Urine Hyaline Casts Many /HPF Urine Granular Casts Few /HPF Urine Mucus Marked /LPF White Blood Count 9.2 x10^3/uL (4.0-11.0) Red Blood Count 5.35 x10^6/uL (4.30-5.70) Hemoglobin 13.4 g/dL (13.0-17.5) Hematocrit 43.1 % (39.0-53.0) Mean Corpuscular Volume 80 fL (79-100) Mean Corpuscular Hemoglobin 25 pg (25-35) Mean Corpuscular Hemoglobin Concent 31 g/dL (31-37) Red Cell Distribution Width 18.4 % (11.5-14.5) Platelet Count 185 x10^3/uL (140-400) Neutrophils (%) (Auto) 63 % (31-73) Lymphocytes (%) (Auto) 25 % (24-48) Monocytes (%) (Auto) 10 % (0-9) Eosinophils (%) (Auto) 1 % (0-3) Basophils (%) (Auto) 1 % (0-3) Neutrophils # (Auto) 5.8 x10^3uL (1.8-7.7) Lymphocytes # (Auto) 2.3 x10^3/uL (1.0-4.8) Monocytes # (Auto) 1.0 x10^3/uL (0.0-1.1) Eosinophils # (Auto) 0.1 x10^3/uL (0.0-0.7) Basophils # (Auto) 0.1 x10^3/uL (0.0-0.2) Prothrombin Time 14.4 SEC (11.7-14.0) Prothromb Time International Ratio 1.2 (0.8-1.1) Activated Partial Thromboplast Time 27 SEC (24-38) Sodium Level 140 mmol/L (136-145) Potassium Level 3.9 mmol/L (3.5-5.1) Chloride Level 100 mmol/L (98-107) Carbon Dioxide Level 38 mmol/L (21-32) Anion Gap 2 (6-14) Blood Urea Nitrogen 23 mg/dL (8-26) Creatinine 1.5 mg/dL (0.7-1.3) Estimated GFR (Cockcroft-Gault) 50.4 BUN/Creatinine Ratio 15 (6-20) Glucose Level 176 mg/dL (70-99) Lactic Acid Level 2.0 mmol/L (0.4-2.0) Calcium Level 9.1 mg/dL (8.5-10.1) Total Bilirubin 0.7 mg/dL (0.2-1.0) Aspartate Amino Transf (AST/SGOT) 19 U/L (15-37) Alanine Aminotransferase (ALT/SGPT) 20 U/L (16-63) Alkaline Phosphatase 92 U/L (46-116) Total Protein 6.8 g/dL (6.4-8.2) Albumin 2.4 g/dL (3.4-5.0) Albumin/Globulin Ratio 0.5 (1.0-1.7) Procalcitonin < 0.10 ng/mL (0.00-0.10) Images: Images 1. As seen on previous May 2018 exam, there is severe scrotal wall edema/thickening. There is persistent nonspecific hyperechogenicity of the epididymis bilaterally and small bilateral hydroceles. Assessment/Plan Assessment/Plan Severe scrotal cellulitis and edema hydroceles COPD probable heart failure lower extremity lymphedema with underlying cellulitis and venous stasis, and probable acute on chronic systolic and diastolic heart failure Plan IV antibiotics Consult infectious disease Consult pulmonary Consults cardiology Consult genitourinary medicine DVT prophylaxis Home meds Full code Wound care nurse to evaluate and treat Long-term prognosis TIBURCIO Crowell III DO Sep 29, 2018 21:03
[2018-09-29 23:00] VITALS: BP 101/73
[2018-09-30] VITALS (19 sets, daily range): BP systolic 102–173; BP diastolic 57–112
[2018-09-30 03:24] LABS: BASO # 0.1 x10^3/uL (0.0-0.2); BASO % 1 % (0-3); EOS % 0 % (0-3); HEMATOCRIT 46.7 % (39.0-53.0); LYMPH # 2.1 x10^3/uL (1.0-4.8); LYMPH % 16 % (24-48); MEAN CORPUSCULAR HEMOGLOBIN 25 pg (25-35); MEAN CORPUSCULAR HGB CONC 30 g/dL (31-37); MEAN CORPUSCULAR VOLUME 82 fL (79-100); MONO # 1.1 x10^3/uL (0.0-1.1); MONO % 9 % (0-9); NEUT # 9.3 x10^3uL (1.8-7.7); NEUT % 74 % (31-73); PLATELET COUNT 227 x10^3/uL (140-400); RED BLOOD COUNT 5.71 x10^6/uL (4.30-5.70); WHITE BLOOD COUNT 12.7 x10^3/uL (4.0-11.0)
[2018-09-30 03:39] LABS: CREATININE 1.4 mg/dL (0.7-1.3); GFR 54.6; POTASSIUM 5.2 mmol/L (3.5-5.1)
[2018-09-30] MEDS ORDERED: VANCOMYCIN 2 GM in IV NORMAL SALINE 500ML BAG 500 ML IV SCH (05:00)
[2018-09-30 05:53] LABS: BASE EXCESS ABG 8 mmol/L (-3-3); HCO3 ABG 43 mmol/L (21-28); PO2 ABG 54 mmHg (75-108); SAT O2 ABG 81 % (92-99)
[2018-09-30 06:37] LABS: FIO2 ABG 36; PCO2 ABG 140 mmHg (35-46)
--- NOTE | 2018-09-30 08:36 | RAD ---
Single view chest History:worsening respiratory failure An AP view of the chest is submitted. Comparison: 09/29/2018. Findings: Pericardial cardiac silhouette is again enlarged. There is increased left base opacity, also increased perihilar opacity greater on the right. There is no pneumothorax. There may be small left pleural effusion now present. Impression: There is increased left base infiltrate/edema and possible small left pleural effusion, also increased perihilar opacity greater on the right which may be due to edema or infiltrate. Pericardial cardiac silhouette is again enlarged.
--- NOTE | 2018-09-30 08:39 | EKG ---
[facility] [address] [place] [id number] Test Date: 2018-09-29 Test Time: 16:54:40 Pat Name: FRANCISCO JAVIER HAYES Department: Room: 115 1 Gender: M Nurse Office: : 1970 Requested By: ANALILIA SMITH Order Number: [id number] Reading MD: Franklin Mcdaniel Measurements Intervals [place] Rate: 114 P: [place]: QRS: 85 QRSD: 86 T: 49 QT: 336 QTc: 467 Interpretive Statements SINUS TACHYCARDIA NONSPECIFIC ST-T WAVE CHANGES. Electronically Signed On 10-03-2018 13:10:56 CDT by Franklin Mcdaniel
--- NOTE | 2018-09-30 08:39 | PDOC ---
Infectious Disease Note Vital Sign Vital Signs Vital Signs Date Time Temp Pulse Resp B/P (MAP) Pulse Ox O2 Delivery O2 Flow Rate FiO2 09/30/18 06:45 80 20 102/61 (75) 93 09/30/18 06:30 97.9 BiPAP/CPAP 97.9 09/30/18 03:00 4.0 Labs Lab Laboratory Tests Test 09/29/18 15:30 09/29/18 16:35 09/30/18 03:15 09/30/18 05:53 Urine Collection Type Unknown Urine Color Yellow Urine Clarity Clear Urine pH 6.0 Urine Specific [place] 1.025 Urine Protein >=300 mg/dL (NEG-TRACE) Urine Glucose (UA) 100 mg/dL (NEG) Urine Ketones (Stick) Negative mg/dL (NEG) Urine Blood Trace (NEG) Urine Nitrite Negative (NEG) Urine Bilirubin Negative (NEG) Urine Urobilinogen Dipstick 1.0 mg/dL (0.2 mg/dL) Urine Leukocyte Esterase Negative (NEG) Urine RBC 3-5 /HPF (0-2) Urine WBC 1-4 /HPF (0-4) Urine Squamous Epithelial Cells Many /LPF Urine Transitional Epithelial Cells Few /LPF Urine Amorphous Sediment Present /HPF Urine Bacteria Few /HPF (0-FEW) Urine Hyaline Casts Many /HPF Urine Granular Casts Few /HPF Urine Mucus Marked /LPF White Blood Count 9.2 x10^3/uL (4.0-11.0) 12.7 x10^3/uL (4.0-11.0) Red Blood Count 5.35 x10^6/uL (4.30-5.70) 5.71 x10^6/uL (4.30-5.70) Hemoglobin 13.4 g/dL (13.0-17.5) 14.0 g/dL (13.0-17.5) Hematocrit 43.1 % (39.0-53.0) 46.7 % (39.0-53.0) Mean Corpuscular Volume 80 fL (79-100) 82 fL (79-100) Mean Corpuscular Hemoglobin 25 pg (25-35) 25 pg (25-35) Mean Corpuscular Hemoglobin Concent 31 g/dL (31-37) 30 g/dL (31-37) Red Cell Distribution Width 18.4 % (11.5-14.5) 19.0 % (11.5-14.5) Platelet Count 185 x10^3/uL (140-400) 227 x10^3/uL (140-400) Neutrophils (%) (Auto) 63 % (31-73) 74 % (31-73) Lymphocytes (%) (Auto) 25 % (24-48) 16 % (24-48) Monocytes (%) (Auto) 10 % (0-9) 9 % (0-9) Eosinophils (%) (Auto) 1 % (0-3) 0 % (0-3) Basophils (%) (Auto) 1 % (0-3) 1 % (0-3) Neutrophils # (Auto) 5.8 x10^3uL (1.8-7.7) 9.3 x10^3uL (1.8-7.7) Lymphocytes # (Auto) 2.3 x10^3/uL (1.0-4.8) 2.1 x10^3/uL (1.0-4.8) Monocytes # (Auto) 1.0 x10^3/uL (0.0-1.1) 1.1 x10^3/uL (0.0-1.1) Eosinophils # (Auto) 0.1 x10^3/uL (0.0-0.7) 0.0 x10^3/uL (0.0-0.7) Basophils # (Auto) 0.1 x10^3/uL (0.0-0.2) 0.1 x10^3/uL (0.0-0.2) Prothrombin Time 14.4 SEC (11.7-14.0) Prothromb Time International Ratio 1.2 (0.8-1.1) Activated Partial Thromboplast Time 27 SEC (24-38) Sodium Level 140 mmol/L (136-145) 138 mmol/L (136-145) Potassium Level 3.9 mmol/L (3.5-5.1) 5.2 mmol/L (3.5-5.1) Chloride Level 100 mmol/L (98-107) 99 mmol/L (98-107) Carbon Dioxide Level 38 mmol/L (21-32) 37 mmol/L (21-32) Anion Gap 2 (6-14) 2 (6-14) Blood Urea Nitrogen 23 mg/dL (8-26) 28 mg/dL (8-26) Creatinine 1.5 mg/dL (0.7-1.3) 1.4 mg/dL (0.7-1.3) Estimated GFR (Cockcroft-Gault) 50.4 54.6 BUN/Creatinine Ratio 15 (6-20) Glucose Level 176 mg/dL (70-99) 180 mg/dL (70-99) Lactic Acid Level 2.0 mmol/L (0.4-2.0) 0.6 mmol/L (0.4-2.0) Calcium Level 9.1 mg/dL (8.5-10.1) 9.0 mg/dL (8.5-10.1) Total Bilirubin 0.7 mg/dL (0.2-1.0) Aspartate Amino Transf (AST/SGOT) 19 U/L (15-37) Alanine Aminotransferase (ALT/SGPT) 20 U/L (16-63) Alkaline Phosphatase 92 U/L (46-116) Total Protein 6.8 g/dL (6.4-8.2) Albumin 2.4 g/dL (3.4-5.0) Albumin/Globulin Ratio 0.5 (1.0-1.7) Procalcitonin < 0.10 ng/mL (0.00-0.10) O2 Saturation 81 % (92-99) Arterial Blood pH 7.11 (7.35-7.45) Arterial Blood pCO2 at Patient Temp 140 mmHg (35-46) Arterial Blood pO2 at Patient Temp 54 mmHg (75-108) Arterial Blood HCO3 43 mmol/L (21-28) Arterial Blood Base Excess 8 mmol/L (-3-3) FiO2 36 Objective Assessment Scrotal cellulitis Candidal intertrigo Leukocytosis Metabolic encephalopathy Acute respiratory failure, now on BiPAP ADINA ? allergy/intolerance to Zosyn. He apparently vomited during infusion. Super morbid obesity, BMI 72 Chronic stasis dermatitis Sleep apnea h/o MRSA and group C strep Plan Plan of Care Due to body habitus vanc levels may be difficult to obtain and as such may pose added risk for worsening renal function. Change to Zyvox. He has tolerated Zosyn before without issue, doubt emesis due to true allergy. Change Rocephin to Meropenem and add micafungin. Repeat chest x-ray Pulmonary and urology has been consulted, await input Monitor labs/renal function closely Maintain aspiration precautions May need indwelling [place] Supportive care D/w nursing Critically ill Thank you [phone] Attending Co-Sign The patient was seen and interviewed as well as examined at the bedside. The chart was reviewed. The case was discussed. Agree with the plan of care. KELI VEGAS APRN Sep 30, 2018 08:39 HEATHER WU MD Sep 30, 2018 13:12
[2018-09-30] MEDS ORDERED: ONDANSETRON PF 4 MG/2 ML VIAL. IV PRN (09:00)
[2018-09-30] MEDS ORDERED: SODIUM POLYSTYRENE SULFONATE 15 GM/60 ML ORAL.SUSP. PO ONE ×2 (09:00→15:15)
--- NOTE | 2018-09-30 09:33 | CONS ---
DATE OF CONSULTATION: 09/30/2018 Shiraz Tucker APRN, dictating for Dr. Heber Wilson, Infecitous Disease. REFERRING PROVIDER: Laura Jack APRN. REASON FOR CONSULTATION: Testicular cellulitis. HISTORY OF PRESENT ILLNESS: This patient is a 48-year-old male who is super morbidly obese with a BMI of 72. He is encephalopathic, on BiPAP, unable to provide history of present illness, past medical history or review of systems. According to the medical record, he presented to the ER with complaints of testicular swelling and redness over a 3-day period. An ultrasound showed severe scrotal wall edema/thickening and persistent nonspecific hyperechogenicity of the epididymis bilaterally and small bilateral hydroceles. No focal fluid collection or mass seen. He was dosed with vancomycin and Zosyn in the ER. The Zosyn was later switched to ceftriaxone after he vomited during the infusion. After he was admitted, a rapid response was called. He was found unresponsive, having difficulty breathing and was incontinent. He was placed on BiPAP and transferred to the Intensive Care Unit. An arterial blood gas returned critical. Pulmonology has been consulted. PAST MEDICAL HISTORY: 1. Group C strep bacteremia with sepsis. 2. MRSA. 3. Recurrent scrotal cellulitis. 4. History of gangrene of the scrotum. 5. Super morbid obesity 6. Sleep apnea. 7. Congestive heart failure. 8. Chronic stasis dermatitis. 9. Venous varicosities. 10. History of acute kidney injury. PAST SURGICAL HISTORY: I and D of the scrotum. SOCIAL HISTORY: The patient is single. He has multiple tattoos and piercings. He previously worked as a certified nurse hair assistant. FAMILY HISTORY: Positive for diabetes. ALLERGIES: Listed PIPERACILLIN/TAZOBACTAM. He apparently vomited during infusion. He has previously tolerated Zosyn. BLEACH and MORPHINE. MEDICATIONS: Vancomycin, ceftriaxone, 1 time dose of Zosyn, clonidine, fentanyl, ondansetron, Tylenol. REVIEW OF SYSTEMS: Unobtainable as the patient is encephalopathic, on BiPAP. PHYSICAL EXAMINATION: VITAL SIGNS: Temperature 97.9, blood pressure 102/61, heart rate 80, respiratory rate 20, pulse oximetry is 93% on FiO2 75% via BiPAP. GENERAL: The patient is on BiPAP and unresponsive. HEENT: Pupils equally round, reactive. Oral cavity dry. LUNGS: Poor aeration. HEART: Distant heart tones. Regular. ABDOMEN: Morbidly obese, soft, no grimace or guarding to palpation. Bowel sounds present. GENITOURINARY: Scrotum is edematous, red. No open wound noted though unable to fully assess posteriorly. Buried phallus. EXTREMITIES: Chronic venous stasis dermatitis lower extremities bilaterally. No cyanosis. SKIN: Warm without generalized rash. He has multiple tattoos. He has yeast in skin folds including pannus and groin areas. NEUROLOGIC: Grimaces to deep sternal rub; otherwise, unresponsive. LABORATORY DATA: Today's WBC 12.7 from 9.2 on admission; hemoglobin 14.0; platelets 227,000. Creatinine 1.4 from 1.5, BUN 28. Sodium 138, potassium 5.2 from 3.9 on admission. Glucose 180. Lactic acid 0.6, total bilirubin 0.7, AST 19, ALT 20, albumin 2.4. Procalcitonin less than 0.10. Blood cultures pending. Scrotal ultrasound per HPI. Chest x-ray on admission showed enlarged cardiac silhouette; no confluent infiltrates noted. IMPRESSION: 1. Scrotal cellulitis. 2. Candidal intertrigo. 3. Leukocytosis. 4. Metabolic encephalopathy. 5. Acute respiratory failure, now on BiPAP. 6. Acute kidney injury. 7. Questionable allergy/intolerance to ZOSYN. He apparently vomited during infusion. 8. Super morbid obesity, BMI 72. 9. Chronic stasis dermatitis. 10. Sleep apnea. 11. 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 PLAN: Due to patient's habitus, vancomycin levels may be difficult to obtain and as such may pose added risk for worsening renal function. We will change to Zyvox. He has tolerated Zosyn before without issue, doubt vomiting true allergy. We will broaden Rocephin to meropenem and add micafungin. Repeat chest x-ray this morning. Pulmonology and Urology both have been consulted. Continue to monitor laboratory values and renal function closely. Maintain aspiration precautions. He may need indwelling [place]. Supportive care. Discussed with nursing. The patient is critically ill. Thank you Laura Jack APRN, for asking us to participate in this patient's care. Should you have further questions or concerns, please call. HEBER WILSON MD DR: JIGNA/trevor JOB#: [id number] / [id number] CELI
[2018-09-30] MEDS: MEROPENEM 1 GM in IV NORMAL SALINE 100ML 100 ML IV SCH ×3 (09:41→21:27)
[2018-09-30 09:42] LABS: BASE EXCESS ABG 7 mmol/L (-3-3); HCO3 ABG 42 mmol/L (21-28); PO2 ABG 94 mmHg (75-108); SAT O2 ABG 95 % (92-99)
--- NOTE | 2018-09-30 10:10 | PDOC ---
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 - he can be sleepy -WOF further inc narcs History of Present Illness History of Present Illness He is on the BiPAP Seen in ICU I know him from before. He was admitted in June 2018 for scrotal cellulitis and leg edema and the same in 2018 in 2017 He is self-pay with poor overall hygiene I would always diurese him with Lasix and he would feel better. Urology would always be involved because of severe scrotal cellulitis edema etc. Plan [place] catheter to be placed by urology later Follow ID recs regarding antibiotics Add OT for lymphedema PT OT when able BiPAP per pulmonary He essentially needs to lose weight or else his problems will never get better He needs to see a bariatric specialist to see if that can help Potassium 5.2- kayexylate 15 g 1 and recheck K later Monitor that creatinine of 1.4-he does have history of AK I ATN which gets worse after we gave Lasix and vancomycin for his medical issues Keep in icu for now (first time bipap?) Vitals Vitals Vital Signs Date Time Temp Pulse Resp B/P (MAP) Pulse Ox O2 Delivery O2 Flow Rate FiO2 09/30/18 09:00 97 19 124/85 (98) 94 09/30/18 08:16 BiPAP/CPAP 09/30/18 06:30 97.9 97.9 09/30/18 03:00 4.0 Physical Exam General: mild distress, Other (on BiPAP) Heart: Regular rate, Normal S1, Normal S2 Lungs: Wheezing, Other (decreased breath sounds, increased AP diameter, no crackles) Extremities: Other (severe lymphedema almost elephantiasis, chronic lichenification, very dry skin, onychomycosis,) Skin: Other (severe redness moisture intertriginous areas-apply nystatin powder or cream) Labs LABS Laboratory Tests Test 09/29/18 15:30 09/29/18 16:35 4/28/19 03:15 09/30/18 05:53 Urine Collection Type Unknown Urine Color Yellow Urine Clarity Clear Urine pH 6.0 Urine Specific [place] 1.025 Urine Protein >=300 mg/dL (NEG-TRACE) Urine Glucose (UA) 100 mg/dL (NEG) Urine Ketones (Stick) Negative mg/dL (NEG) Urine Blood Trace (NEG) Urine Nitrite Negative (NEG) Urine Bilirubin Negative (NEG) Urine Urobilinogen Dipstick 1.0 mg/dL (0.2 mg/dL) Urine Leukocyte Esterase Negative (NEG) Urine RBC 3-5 /HPF (0-2) Urine WBC 1-4 /HPF (0-4) Urine Squamous Epithelial Cells Many /LPF Urine Transitional Epithelial Cells Few /LPF Urine Amorphous Sediment Present /HPF Urine Bacteria Few /HPF (0-FEW) Urine Hyaline Casts Many /HPF Urine Granular Casts Few /HPF Urine Mucus Marked /LPF White Blood Count 9.2 x10^3/uL (4.0-11.0) 12.7 x10^3/uL (4.0-11.0) Red Blood Count 5.35 x10^6/uL (4.30-5.70) 5.71 x10^6/uL (4.30-5.70) Hemoglobin 13.4 g/dL (13.0-17.5) 14.0 g/dL (13.0-17.5) Hematocrit 43.1 % (39.0-53.0) 46.7 % (39.0-53.0) Mean Corpuscular Volume 80 fL (79-100) 82 fL (79-100) Mean Corpuscular Hemoglobin 25 pg (25-35) 25 pg (25-35) Mean Corpuscular Hemoglobin Concent 31 g/dL (31-37) 30 g/dL (31-37) Red Cell Distribution Width 18.4 % (11.5-14.5) 19.0 % (11.5-14.5) Platelet Count 185 x10^3/uL (140-400) 227 x10^3/uL (140-400) Neutrophils (%) (Auto) 63 % (31-73) 74 % (31-73) Lymphocytes (%) (Auto) 25 % (24-48) 16 % (24-48) Monocytes (%) (Auto) 10 % (0-9) 9 % (0-9) Eosinophils (%) (Auto) 1 % (0-3) 0 % (0-3) Basophils (%) (Auto) 1 % (0-3) 1 % (0-3) Neutrophils # (Auto) 5.8 x10^3uL (1.8-7.7) 9.3 x10^3uL (1.8-7.7) Lymphocytes # (Auto) 2.3 x10^3/uL (1.0-4.8) 2.1 x10^3/uL (1.0-4.8) Monocytes # (Auto) 1.0 x10^3/uL (0.0-1.1) 1.1 x10^3/uL (0.0-1.1) Eosinophils # (Auto) 0.1 x10^3/uL (0.0-0.7) 0.0 x10^3/uL (0.0-0.7) Basophils # (Auto) 0.1 x10^3/uL (0.0-0.2) 0.1 x10^3/uL (0.0-0.2) Prothrombin Time 14.4 SEC (11.7-14.0) Prothromb Time International Ratio 1.2 (0.8-1.1) Activated Partial Thromboplast Time 27 SEC (24-38) Sodium Level 140 mmol/L (136-145) 138 mmol/L (136-145) Potassium Level 3.9 mmol/L (3.5-5.1) 5.2 mmol/L (3.5-5.1) Chloride Level 100 mmol/L (98-107) 99 mmol/L (98-107) Carbon Dioxide Level 38 mmol/L (21-32) 37 mmol/L (21-32) Anion Gap 2 (6-14) 2 (6-14) Blood Urea Nitrogen 23 mg/dL (8-26) 28 mg/dL (8-26) Creatinine 1.5 mg/dL (0.7-1.3) 1.4 mg/dL (0.7-1.3) Estimated GFR (Cockcroft-Gault) 50.4 54.6 BUN/Creatinine Ratio 15 (6-20) Glucose Level 176 mg/dL (70-99) 180 mg/dL (70-99) Lactic Acid Level 2.0 mmol/L (0.4-2.0) 0.6 mmol/L (0.4-2.0) Calcium Level 9.1 mg/dL (8.5-10.1) 9.0 mg/dL (8.5-10.1) Total Bilirubin 0.7 mg/dL (0.2-1.0) Aspartate Amino Transf (AST/SGOT) 19 U/L (15-37) Alanine Aminotransferase (ALT/SGPT) 20 U/L (16-63) Alkaline Phosphatase 92 U/L (46-116) Total Protein 6.8 g/dL (6.4-8.2) Albumin 2.4 g/dL (3.4-5.0) Albumin/Globulin Ratio 0.5 (1.0-1.7) Procalcitonin < 0.10 ng/mL (0.00-0.10) O2 Saturation 81 % (92-99) Arterial Blood pH 7.11 (7.35-7.45) Arterial Blood pCO2 at Patient Temp 140 mmHg (35-46) Arterial Blood pO2 at Patient Temp 54 mmHg (75-108) Arterial Blood HCO3 43 mmol/L (21-28) Arterial Blood Base Excess 8 mmol/L (-3-3) FiO2 36 Review of Systems Review of Systems limited, on BiPAP currently and slightly drowsy - CO2 narcosis? Assessment and Plan Assessmemt and Plan Problems Medical Problems: (1) Obesity with serious comorbidity Status: Acute Comment Review of Relevant I have reviewed the following items adolfo (where applicable) has been applied. Labs Laboratory Tests Test 09/29/18 15:30 09/29/18 16:35 09/30/18 03:15 09/30/18 05:53 Urine Collection Type Unknown Urine Color Yellow Urine Clarity Clear Urine pH 6.0 Urine Specific [place] 1.025 Urine Protein >=300 mg/dL (NEG-TRACE) Urine Glucose (UA) 100 mg/dL (NEG) Urine Ketones (Stick) Negative mg/dL (NEG) Urine Blood Trace (NEG) Urine Nitrite Negative (NEG) Urine Bilirubin Negative (NEG) Urine Urobilinogen Dipstick 1.0 mg/dL (0.2 mg/dL) Urine Leukocyte Esterase Negative (NEG) Urine RBC 3-5 /HPF (0-2) Urine WBC 1-4 /HPF (0-4) Urine Squamous Epithelial Cells Many /LPF Urine Transitional Epithelial Cells Few /LPF Urine Amorphous Sediment Present /HPF Urine Bacteria Few /HPF (0-FEW) Urine Hyaline Casts Many /HPF Urine Granular Casts Few /HPF Urine Mucus Marked /LPF White Blood Count 9.2 x10^3/uL (4.0-11.0) 12.7 x10^3/uL (4.0-11.0) Red Blood Count 5.35 x10^6/uL (4.30-5.70) 5.71 x10^6/uL (4.30-5.70) Hemoglobin 13.4 g/dL (13.0-17.5) 14.0 g/dL (13.0-17.5) Hematocrit 43.1 % (39.0-53.0) 46.7 % (39.0-53.0) Mean Corpuscular Volume 80 fL (79-100) 82 fL (79-100) Mean Corpuscular Hemoglobin 25 pg (25-35) 25 pg (25-35) Mean Corpuscular Hemoglobin Concent 31 g/dL (31-37) 30 g/dL (31-37) Red Cell Distribution Width 18.4 % (11.5-14.5) 19.0 % (11.5-14.5) Platelet Count 185 x10^3/uL (140-400) 227 x10^3/uL (140-400) Neutrophils (%) (Auto) 63 % (31-73) 74 % (31-73) Lymphocytes (%) (Auto) 25 % (24-48) 16 % (24-48) Monocytes (%) (Auto) 10 % (0-9) 9 % (0-9) Eosinophils (%) (Auto) 1 % (0-3) 0 % (0-3) Basophils (%) (Auto) 1 % (0-3) 1 % (0-3) Neutrophils # (Auto) 5.8 x10^3uL (1.8-7.7) 9.3 x10^3uL (1.8-7.7) Lymphocytes # (Auto) 2.3 x10^3/uL (1.0-4.8) 2.1 x10^3/uL (1.0-4.8) Monocytes # (Auto) 1.0 x10^3/uL (0.0-1.1) 1.1 x10^3/uL (0.0-1.1) Eosinophils # (Auto) 0.1 x10^3/uL (0.0-0.7) 0.0 x10^3/uL (0.0-0.7) Basophils # (Auto) 0.1 x10^3/uL (0.0-0.2) 0.1 x10^3/uL (0.0-0.2) Prothrombin Time 14.4 SEC (11.7-14.0) Prothromb Time International Ratio 1.2 (0.8-1.1) Activated Partial Thromboplast Time 27 SEC (24-38) Sodium Level 140 mmol/L (136-145) 138 mmol/L (136-145) Potassium Level 3.9 mmol/L (3.5-5.1) 5.2 mmol/L (3.5-5.1) Chloride Level 100 mmol/L (98-107) 99 mmol/L (98-107) Carbon Dioxide Level 38 mmol/L (21-32) 37 mmol/L (21-32) Anion Gap 2 (6-14) 2 (6-14) Blood Urea Nitrogen 23 mg/dL (8-26) 28 mg/dL (8-26) Creatinine 1.5 mg/dL (0.7-1.3) 1.4 mg/dL (0.7-1.3) Estimated GFR (Cockcroft-Gault) 50.4 54.6 BUN/Creatinine Ratio 15 (6-20) Glucose Level 176 mg/dL (70-99) 180 mg/dL (70-99) Lactic Acid Level 2.0 mmol/L (0.4-2.0) 0.6 mmol/L (0.4-2.0) Calcium Level 9.1 mg/dL (8.5-10.1) 9.0 mg/dL (8.5-10.1) Total Bilirubin 0.7 mg/dL (0.2-1.0) Aspartate Amino Transf (AST/SGOT) 19 U/L (15-37) Alanine Aminotransferase (ALT/SGPT) 20 U/L (16-63) Alkaline Phosphatase 92 U/L (46-116) Total Protein 6.8 g/dL (6.4-8.2) Albumin 2.4 g/dL (3.4-5.0) Albumin/Globulin Ratio 0.5 (1.0-1.7) Procalcitonin < 0.10 ng/mL (0.00-0.10) O2 Saturation 81 % (92-99) Arterial Blood pH 7.11 (7.35-7.45) Arterial Blood pCO2 at Patient Temp 140 mmHg (35-46) Arterial Blood pO2 at Patient Temp 54 mmHg (75-108) Arterial Blood HCO3 43 mmol/L (21-28) Arterial Blood Base Excess 8 mmol/L (-3-3) FiO2 36 Laboratory Tests Test 09/29/18 15:30 09/29/18 16:35 09/30/18 03:15 09/30/18 05:53 Urine Collection Type Unknown Urine Color Yellow Urine Clarity Clear Urine pH 6.0 Urine Specific [place] 1.025 Urine Protein >=300 mg/dL (NEG-TRACE) Urine Glucose (UA) 100 mg/dL (NEG) Urine Ketones (Stick) Negative mg/dL (NEG) Urine Blood Trace (NEG) Urine Nitrite Negative (NEG) Urine Bilirubin Negative (NEG) Urine Urobilinogen Dipstick 1.0 mg/dL (0.2 mg/dL) Urine Leukocyte Esterase Negative (NEG) Urine RBC 3-5 /HPF (0-2) Urine WBC 1-4 /HPF (0-4) Urine Squamous Epithelial Cells Many /LPF Urine Transitional Epithelial Cells Few /LPF Urine Amorphous Sediment Present /HPF Urine Bacteria Few /HPF (0-FEW) Urine Hyaline Casts Many /HPF Urine Granular Casts Few /HPF Urine Mucus Marked /LPF White Blood Count 9.2 x10^3/uL (4.0-11.0) 12.7 x10^3/uL (4.0-11.0) Red Blood Count 5.35 x10^6/uL (4.30-5.70) 5.71 x10^6/uL (4.30-5.70) Hemoglobin 13.4 g/dL (13.0-17.5) 14.0 g/dL (13.0-17.5) Hematocrit 43.1 % (39.0-53.0) 46.7 % (39.0-53.0) Mean Corpuscular Volume 80 fL (79-100) 82 fL (79-100) Mean Corpuscular Hemoglobin 25 pg (25-35) 25 pg (25-35) Mean Corpuscular Hemoglobin Concent 31 g/dL (31-37) 30 g/dL (31-37) Red Cell Distribution Width 18.4 % (11.5-14.5) 19.0 % (11.5-14.5) Platelet Count 185 x10^3/uL (140-400) 227 x10^3/uL (140-400) Neutrophils (%) (Auto) 63 % (31-73) 74 % (31-73) Lymphocytes (%) (Auto) 25 % (24-48) 16 % (24-48) Monocytes (%) (Auto) 10 % (0-9) 9 % (0-9) Eosinophils (%) (Auto) 1 % (0-3) 0 % (0-3) Basophils (%) (Auto) 1 % (0-3) 1 % (0-3) Neutrophils # (Auto) 5.8 x10^3uL (1.8-7.7) 9.3 x10^3uL (1.8-7.7) Lymphocytes # (Auto) 2.3 x10^3/uL (1.0-4.8) 2.1 x10^3/uL (1.0-4.8) Monocytes # (Auto) 1.0 x10^3/uL (0.0-1.1) 1.1 x10^3/uL (0.0-1.1) Eosinophils # (Auto) 0.1 x10^3/uL (0.0-0.7) 0.0 x10^3/uL (0.0-0.7) Basophils # (Auto) 0.1 x10^3/uL (0.0-0.2) 0.1 x10^3/uL (0.0-0.2) Prothrombin Time 14.4 SEC (11.7-14.0) Prothromb Time International Ratio 1.2 (0.8-1.1) Activated Partial Thromboplast Time 27 SEC (24-38) Sodium Level 140 mmol/L (136-145) 138 mmol/L (136-145) Potassium Level 3.9 mmol/L (3.5-5.1) 5.2 mmol/L (3.5-5.1) Chloride Level 100 mmol/L (98-107) 99 mmol/L (98-107) Carbon Dioxide Level 38 mmol/L (21-32) 37 mmol/L (21-32) Anion Gap 2 (6-14) 2 (6-14) Blood Urea Nitrogen 23 mg/dL (8-26) 28 mg/dL (8-26) Creatinine 1.5 mg/dL (0.7-1.3) 1.4 mg/dL (0.7-1.3) Estimated GFR (Cockcroft-Gault) 50.4 54.6 BUN/Creatinine Ratio 15 (6-20) Glucose Level 176 mg/dL (70-99) 180 mg/dL (70-99) Lactic Acid Level 2.0 mmol/L (0.4-2.0) 0.6 mmol/L (0.4-2.0) Calcium Level 9.1 mg/dL (8.5-10.1) 9.0 mg/dL (8.5-10.1) Total Bilirubin 0.7 mg/dL (0.2-1.0) Aspartate Amino Transf (AST/SGOT) 19 U/L (15-37) Alanine Aminotransferase (ALT/SGPT) 20 U/L (16-63) Alkaline Phosphatase 92 U/L (46-116) Total Protein 6.8 g/dL (6.4-8.2) Albumin 2.4 g/dL (3.4-5.0) Albumin/Globulin Ratio 0.5 (1.0-1.7) Procalcitonin < 0.10 ng/mL (0.00-0.10) O2 Saturation 81 % (92-99) Arterial Blood pH 7.11 (7.35-7.45) Arterial Blood pCO2 at Patient Temp 140 mmHg (35-46) Arterial Blood pO2 at Patient Temp 54 mmHg (75-108) Arterial Blood HCO3 43 mmol/L (21-28) Arterial Blood Base Excess 8 mmol/L (-3-3) FiO2 36 Medications Current Medications Sodium Chloride 1,000 ml @ 2,190 mls/hr Q28M IV Last administered on 09/29/18at 17:52; Start 09/29/18 at 15:54; Stop 09/29/18 at 16:54; Status DC Piperacillin Sod/ Tazobactam Sod 4.5 gm/Sodium Chloride 100 ml @ 200 mls/hr 1X ONCE IV Last administered on 09/29/18at 16:51; Start 09/29/18 at 16:00; Stop 09/29/18 at 16:29; Status DC Vancomycin HCl (Vanco Per Pharmacy) 1 each 1X ONCE MC ; Start 09/29/18 at 16:00; Stop 09/29/18 at 18:10; Status DC Fentanyl Citrate (Fentanyl 2ml Vial) 50 mcg PRN Q15MIN PRN IV PAIN GREATER THAN 3/10 Last administered on 09/29/18at 17:51; Start 09/29/18 at 16:00; Stop 09/29/18 at 22:00; Status DC Vancomycin HCl 2 gm/Sodium Chloride 500 ml @ 250 mls/hr 1X ONCE IV Last administered on 09/29/18at 17:10; Start 09/29/18 at 16:15; Stop 09/29/18 at 18:14; Status DC Ondansetron HCl (Zofran) 4 mg STK-MED ONCE .ROUTE ; Start 09/29/18 at 17:00; Stop 09/29/18 at 17:01; Status DC Ondansetron HCl (Zofran) 4 mg PRN Q8HRS PRN IV NAUSEA/VOMITING; Start 09/29/18 at 19:00; Stop 09/30/18 at 08:49; Status DC Fentanyl Citrate (Fentanyl 2ml Vial) 50 mcg PRN Q1HR PRN IV PAIN; Start 09/29/18 at 19:00; Stop 09/30/18 at 18:59 Acetaminophen (Tylenol) 650 mg PRN Q4HRS PRN PO FEVER; Start 09/29/18 at 19:00; Stop 09/30/18 at 18:59 Clonidine HCl (Catapres) 0.1 mg PRN TID PRN PO HYPERTENSION, SEE COMMENTS; Start 09/29/18 at 19:00 Ceftriaxone Sodium (Rocephin) 1 gm Q24H IVP Last administered on 09/29/18at 20:47; Start 09/29/18 at 21:00; Stop 09/30/18 at 08:02; Status DC Sodium Chloride 1,000 ml @ 50 mls/hr Q20H IV ; Start 09/29/18 at 23:00 Vancomycin HCl (Vanco Per Pharmacy) 1 each PRN DAILY PRN MC SEE COMMENTS Last administered on 09/30/18at 00:29; Start 09/29/18 at 21:00; Stop 09/30/18 at 08:02; Status DC Vancomycin HCl 2 gm/Sodium Chloride 500 ml @ 250 mls/hr Q12H IV Last administered on 09/30/18at 05:05; Start 09/30/18 at 05:00; Stop 09/30/18 at 08:02; Status DC Vancomycin HCl (Vancomycin Trough Level) 1 each 1X ONCE MC ; Start 10/01/18 at 04:30; Stop 10/01/18 at 04:30; Status DC Linezolid/Dextrose 300 ml @ 300 mls/hr Q12HR IV Last administered on 09/30/18at 09:47; Start 09/30/18 at 09:00 Meropenem 1 gm/ Sodium Chloride 100 ml @ 200 mls/hr Q8HRS IV Last administered on 09/30/18at 09:41; Start 09/30/18 at 09:00 Micafungin Sodium 100 mg/Dextrose 100 ml @ 100 mls/hr Q24H IV ; Start 09/30/18 at 10:00 Ondansetron HCl (Zofran) 4 mg PRN Q6HRS PRN IV NAUSEA/VOMITING; Start 09/30/18 at 09:00 Sodium Polystyrene Sulfonate (Kayexalate) 15 gm 1X ONCE PO ; Start 09/30/18 at 09:00; Stop 09/30/18 at 09:01; Status DC Active Scripts Active Reported [No home meds] Vitals/I & O Vital Sign - Last 24 Hours 09/29/18 09/29/18 09/29/18 09/29/18 16:25 16:45 17:14 17:29 Temp 99.2 99.2 Pulse 126 130 126 102 Resp 22 24 26 22 B/P (MAP) 199/119 (145) 170/77 (108) 149/76 (100) 148/75 (99) Pulse Ox 88 90 92 90 O2 Delivery Room Air Nasal Cannula Nasal Cannula Nasal Cannula O2 Flow Rate 2.0 4.0 4.0 09/29/18 09/29/18 09/29/18 09/29/18 17:44 17:51 17:59 18:14 Pulse 104 102 108 Resp 24 22 20 B/P (MAP) 155/86 (109) 156/88 (110) 165/81 (109) Pulse Ox 91 92 86 89 O2 Delivery Nasal Cannula Nasal Cannula Nasal Cannula Nasal Cannula O2 Flow Rate 4.0 4.0 4.0 4.0 09/29/18 09/29/18 09/29/18 09/29/18 18:29 18:44 19:50 19:50 Temp 97.8 97.8 Pulse 112 112 130 Resp 20 20 B/P (MAP) 136/65 (88) 140/82 (101) 137/77 (97) Pulse Ox 91 92 92 O2 Delivery Nasal Cannula Nasal Cannula Nasal Cannula Nasal Cannula O2 Flow Rate 4.0 4.0 4.0 4.0 09/29/18 09/30/18 09/30/18 09/30/18 23:00 03:00 06:05 06:30 Temp 97.4 97.7 97.9 97.4 97.7 97.9 Pulse 95 123 88 Resp 20 18 20 B/P (MAP) 101/73 (82) 159/97 (117) 144/81 (102) Pulse Ox 91 91 92 93 O2 Delivery Room Air Nasal Cannula BiPAP/CPAP BiPAP/CPAP O2 Flow Rate 4.0 09/30/18 09/30/18 09/30/18 09/30/18 06:45 08:00 08:00 08:16 Pulse 80 82 Resp 19 B/P (MAP) 102/61 (75) 127/57 (80) Pulse Ox 93 95 93 O2 Delivery Bi-pap BiPAP/CPAP 09/30/18 09:00 Pulse 97 Resp 19 B/P (MAP) 124/85 (98) Pulse Ox 94 Intake and Output 09/29/18 09/29/18 09/30/18 15:00 23:00 07:00 Intake Total 460 ml 420 ml Balance 460 ml 420 ml GM PATTERSON MD Sep 30, 2018 10:10
[2018-09-30] MEDS ORDERED: HYDROcodone/APAP 5/325MG 1 TAB TABLET PO PRN (10:15)
[2018-09-30 11:15] LABS: FIO2 ABG 60; PCO2 ABG 133 mmHg (35-46)
--- NOTE | 2018-09-30 11:21 | PDOC2 ---
UROLOGY CONSULT Date of Consult Date of Consult DATE: 09/30/18 TIME: 11:10 Reason for Consult Reason for Consult: scrotal swelling Identification/Chief Complaint Chief Complaint scrotal pain Source Source: Caregiver, Chart review History of Present Illness Reason for Visit: 48 yo male who initially presented to the ER reporting severe scrotal pain. A scrotal ultrasound was performed that showed severe scrotal wall thickening, hydroceles, possible epididymitis. Since presenting to the ER he is now is respiratory failure in the ICU on BIPAP, and is unable to answer my questions. He was seen by urology 06/04/18 for a similar issue of scrotal swelling - only scrotal elevation was recommended. He apparently at some point had scrotal I&D for infection, but I only see a mention of that an no actual records. No additional history able to be obtained from patient due to his critical condition. Past Medical History Cardiovascular: HTN Pulmonary: Other CENTRAL NERVOUS SYSTEM: Other GI: No pertinent hx Heme/Onc: No pertinent hx Hepatobiliary: No pertinent hx Psych: No pertinent hx Musculoskeletal: Other Infectious disease: Other Renal/: Chronic renal insuff Endocrine: Diabetes Past Surgical History Past Surgical History: Other Family History Family History: Diabetes, Hypertension, Family History Unknown Social History ALCOHOL: none Drugs: None Current Medications Current Medications Current Medications Acetaminophen (Tylenol) 650 mg PRN Q4HRS PRN PO FEVER; Start 09/29/18 at 19:00; Stop 09/30/18 at 18:59 Acetaminophen/ Hydrocodone Bitart (Lortab 5/325) 1 tab PRN Q4HRS PRN PO PAIN; Start 09/30/18 at 10:15 Ceftriaxone Sodium (Rocephin) 1 gm Q24H IVP Last administered on 09/29/18at 20:47; Start 09/29/18 at 21:00; Stop 09/30/18 at 08:02; Status DC Clonidine HCl (Catapres) 0.1 mg PRN TID PRN PO HYPERTENSION, SEE COMMENTS; Start 09/29/18 at 19:00 Fentanyl Citrate (Fentanyl 2ml Vial) 50 mcg PRN Q15MIN PRN IV PAIN GREATER THAN 3/10 Last administered on 09/29/18at 17:51; Start 09/29/18 at 16:00; Stop 09/29/18 at 22:00; Status DC Fentanyl Citrate (Fentanyl 2ml Vial) 50 mcg PRN Q1HR PRN IV PAIN; Start 09/29/18 at 19:00; Stop 09/30/18 at 18:59 Lactobacillus Rhamnosus (Culturelle) 1 cap BID PO ; Start 09/30/18 at 21:00 Linezolid/Dextrose 300 ml @ 300 mls/hr Q12HR IV Last administered on 09/30/18at 09:47; Start 09/30/18 at 09:00 Meropenem 1 gm/ Sodium Chloride 100 ml @ 200 mls/hr Q8HRS IV Last administered on 09/30/18at 09:41; Start 09/30/18 at 09:00 Micafungin Sodium 100 mg/Dextrose 100 ml @ 100 mls/hr Q24H IV ; Start 09/30/18 at 10:00 Ondansetron HCl (Zofran) 4 mg PRN Q6HRS PRN IV NAUSEA/VOMITING; Start 09/30/18 at 09:00 Ondansetron HCl (Zofran) 4 mg PRN Q8HRS PRN IV NAUSEA/VOMITING; Start 09/29/18 at 19:00; Stop 09/30/18 at 08:49; Status DC Ondansetron HCl (Zofran) 4 mg STK-MED ONCE .ROUTE ; Start 09/29/18 at 17:00; Stop 09/29/18 at 17:01; Status DC Piperacillin Sod/ Tazobactam Sod 4.5 gm/Sodium Chloride 100 ml @ 200 mls/hr 1X ONCE IV Last administered on 09/29/18at 16:51; Start 09/29/18 at 16:00; Stop 09/29/18 at 16:29; Status DC Sodium Polystyrene Sulfonate (Kayexalate) 15 gm 1X ONCE PO ; Start 09/30/18 at 09:00; Stop 09/30/18 at 09:01; Status DC Sodium Chloride 1,000 ml @ 50 mls/hr Q20H IV ; Start 09/29/18 at 23:00 Sodium Chloride 1,000 ml @ 2,190 mls/hr Q28M IV Last administered on 09/29/18at 17:52; Start 09/29/18 at 15:54; Stop 09/29/18 at 16:54; Status DC Vancomycin HCl (Vanco Per Pharmacy) 1 each 1X ONCE MC ; Start 09/29/18 at 16:00; Stop 09/29/18 at 18:10; Status DC Vancomycin HCl (Vanco Per Pharmacy) 1 each PRN DAILY PRN MC SEE COMMENTS Last administered on 09/30/18at 00:29; Start 09/29/18 at 21:00; Stop 09/30/18 at 08:02; Status DC Vancomycin HCl (Vancomycin Trough Level) 1 each 1X ONCE MC ; Start 10/01/18 at 04:30; Stop 10/01/18 at 04:30; Status DC Vancomycin HCl 2 gm/Sodium Chloride 500 ml @ 250 mls/hr 1X ONCE IV Last administered on 09/29/18at 17:10; Start 09/29/18 at 16:15; Stop 09/29/18 at 18:14; Status DC Vancomycin HCl 2 gm/Sodium Chloride 500 ml @ 250 mls/hr Q12H IV Last administered on 09/30/18at 05:05; Start 09/30/18 at 05:00; Stop 09/30/18 at 08:02; Status DC Allergies Allergies: Coded Allergies: morphine (Verified Allergy, Intermediate, 09/29/18) Bleach (Sodium Hypochlorite) (Verified Adverse Reaction, Intermediate, 02/13/18) piperacillin (Verified Adverse Reaction, Intermediate, INSTANT VOMITING, 09/29/18) tazobactam (Verified Adverse Reaction, Intermediate, INSTANT VOMITING, 09/29/18) ROS Review Of Systems: Unable to obtain Physical Exam Physical Exam: General: On BiPAP, critically ill, drowsy, not answering questions. Morbidly obese, BMI 72. Eyes: conjunctiva anicteric ENT: moist oral mucosa, normal dentition Neck: obese no masses Respiratory: labored breathing Cardiovascular: Regular rate and rhythm, severe lower extremity edema Abdomen: skin with edema, nontender, morbidly obese, spleen and liver not palpable. Skin: no rashes or skin lesions on visualized skin Psych: not responding to questions. : severe scrotal wall edema, with erythema. Entire scrotum and perineum visualized: no skin breakdown or dusky areas. testicles not palpable. Penis not visible. Vitals VITALS Vital Signs Date Time Temp Pulse Resp B/P (MAP) Pulse Ox O2 Delivery O2 Flow Rate FiO2 09/30/18 10:09 94 BiPAP/CPAP 09/30/18 10:00 83 19 149/94 (112) 09/30/18 06:30 97.9 97.9 09/30/18 03:00 4.0 Labs Labs Laboratory Tests Test 09/29/18 15:30 09/29/18 16:35 09/30/18 03:15 09/30/18 05:53 Urine Collection Type Unknown Urine Color Yellow Urine Clarity Clear Urine pH 6.0 Urine Specific [place] 1.025 Urine Protein >=300 mg/dL (NEG-TRACE) Urine Glucose (UA) 100 mg/dL (NEG) Urine Ketones (Stick) Negative mg/dL (NEG) Urine Blood Trace (NEG) Urine Nitrite Negative (NEG) Urine Bilirubin Negative (NEG) Urine Urobilinogen Dipstick 1.0 mg/dL (0.2 mg/dL) Urine Leukocyte Esterase Negative (NEG) Urine RBC 3-5 /HPF (0-2) Urine WBC 1-4 /HPF (0-4) Urine Squamous Epithelial Cells Many /LPF Urine Transitional Epithelial Cells Few /LPF Urine Amorphous Sediment Present /HPF Urine Bacteria Few /HPF (0-FEW) Urine Hyaline Casts Many /HPF Urine Granular Casts Few /HPF Urine Mucus Marked /LPF White Blood Count 9.2 x10^3/uL (4.0-11.0) 12.7 x10^3/uL (4.0-11.0) Red Blood Count 5.35 x10^6/uL (4.30-5.70) 5.71 x10^6/uL (4.30-5.70) Hemoglobin 13.4 g/dL (13.0-17.5) 14.0 g/dL (13.0-17.5) Hematocrit 43.1 % (39.0-53.0) 46.7 % (39.0-53.0) Mean Corpuscular Volume 80 fL (79-100) 82 fL (79-100) Mean Corpuscular Hemoglobin 25 pg (25-35) 25 pg (25-35) Mean Corpuscular Hemoglobin Concent 31 g/dL (31-37) 30 g/dL (31-37) Red Cell Distribution Width 18.4 % (11.5-14.5) 19.0 % (11.5-14.5) Platelet Count 185 x10^3/uL (140-400) 227 x10^3/uL (140-400) Neutrophils (%) (Auto) 63 % (31-73) 74 % (31-73) Lymphocytes (%) (Auto) 25 % (24-48) 16 % (24-48) Monocytes (%) (Auto) 10 % (0-9) 9 % (0-9) Eosinophils (%) (Auto) 1 % (0-3) 0 % (0-3) Basophils (%) (Auto) 1 % (0-3) 1 % (0-3) Neutrophils # (Auto) 5.8 x10^3uL (1.8-7.7) 9.3 x10^3uL (1.8-7.7) Lymphocytes # (Auto) 2.3 x10^3/uL (1.0-4.8) 2.1 x10^3/uL (1.0-4.8) Monocytes # (Auto) 1.0 x10^3/uL (0.0-1.1) 1.1 x10^3/uL (0.0-1.1) Eosinophils # (Auto) 0.1 x10^3/uL (0.0-0.7) 0.0 x10^3/uL (0.0-0.7) Basophils # (Auto) 0.1 x10^3/uL (0.0-0.2) 0.1 x10^3/uL (0.0-0.2) Prothrombin Time 14.4 SEC (11.7-14.0) Prothromb Time International Ratio 1.2 (0.8-1.1) Activated Partial Thromboplast Time 27 SEC (24-38) Sodium Level 140 mmol/L (136-145) 138 mmol/L (136-145) Potassium Level 3.9 mmol/L (3.5-5.1) 5.2 mmol/L (3.5-5.1) Chloride Level 100 mmol/L (98-107) 99 mmol/L (98-107) Carbon Dioxide Level 38 mmol/L (21-32) 37 mmol/L (21-32) Anion Gap 2 (6-14) 2 (6-14) Blood Urea Nitrogen 23 mg/dL (8-26) 28 mg/dL (8-26) Creatinine 1.5 mg/dL (0.7-1.3) 1.4 mg/dL (0.7-1.3) Estimated GFR (Cockcroft-Gault) 50.4 54.6 BUN/Creatinine Ratio 15 (6-20) Glucose Level 176 mg/dL (70-99) 180 mg/dL (70-99) Lactic Acid Level 2.0 mmol/L (0.4-2.0) 0.6 mmol/L (0.4-2.0) Calcium Level 9.1 mg/dL (8.5-10.1) 9.0 mg/dL (8.5-10.1) Total Bilirubin 0.7 mg/dL (0.2-1.0) Aspartate Amino Transf (AST/SGOT) 19 U/L (15-37) Alanine Aminotransferase (ALT/SGPT) 20 U/L (16-63) Alkaline Phosphatase 92 U/L (46-116) Total Protein 6.8 g/dL (6.4-8.2) Albumin 2.4 g/dL (3.4-5.0) Albumin/Globulin Ratio 0.5 (1.0-1.7) Procalcitonin < 0.10 ng/mL (0.00-0.10) HW-Iuz-V-Type Natriuretic Peptide 998 pg/mL (0-124) O2 Saturation 81 % (92-99) Arterial Blood pH 7.11 (7.35-7.45) Arterial Blood pCO2 at Patient Temp 140 mmHg (35-46) Arterial Blood pO2 at Patient Temp 54 mmHg (75-108) Arterial Blood HCO3 43 mmol/L (21-28) Arterial Blood Base Excess 8 mmol/L (-3-3) FiO2 36 Laboratory Tests Test 09/29/18 15:30 09/29/18 16:35 09/30/18 03:15 09/30/18 05:53 Urine Collection Type Unknown Urine Color Yellow Urine Clarity Clear Urine pH 6.0 Urine Specific [place] 1.025 Urine Protein >=300 mg/dL (NEG-TRACE) Urine Glucose (UA) 100 mg/dL (NEG) Urine Ketones (Stick) Negative mg/dL (NEG) Urine Blood Trace (NEG) Urine Nitrite Negative (NEG) Urine Bilirubin Negative (NEG) Urine Urobilinogen Dipstick 1.0 mg/dL (0.2 mg/dL) Urine Leukocyte Esterase Negative (NEG) Urine RBC 3-5 /HPF (0-2) Urine WBC 1-4 /HPF (0-4) Urine Squamous Epithelial Cells Many /LPF Urine Transitional Epithelial Cells Few /LPF Urine Amorphous Sediment Present /HPF Urine Bacteria Few /HPF (0-FEW) Urine Hyaline Casts Many /HPF Urine Granular Casts Few /HPF Urine Mucus Marked /LPF White Blood Count 9.2 x10^3/uL (4.0-11.0) 12.7 x10^3/uL (4.0-11.0) Red Blood Count 5.35 x10^6/uL (4.30-5.70) 5.71 x10^6/uL (4.30-5.70) Hemoglobin 13.4 g/dL (13.0-17.5) 14.0 g/dL (13.0-17.5) Hematocrit 43.1 % (39.0-53.0) 46.7 % (39.0-53.0) Mean Corpuscular Volume 80 fL (79-100) 82 fL (79-100) Mean Corpuscular Hemoglobin 25 pg (25-35) 25 pg (25-35) Mean Corpuscular Hemoglobin Concent 31 g/dL (31-37) 30 g/dL (31-37) Red Cell Distribution Width 18.4 % (11.5-14.5) 19.0 % (11.5-14.5) Platelet Count 185 x10^3/uL (140-400) 227 x10^3/uL (140-400) Neutrophils (%) (Auto) 63 % (31-73) 74 % (31-73) Lymphocytes (%) (Auto) 25 % (24-48) 16 % (24-48) Monocytes (%) (Auto) 10 % (0-9) 9 % (0-9) Eosinophils (%) (Auto) 1 % (0-3) 0 % (0-3) Basophils (%) (Auto) 1 % (0-3) 1 % (0-3) Neutrophils # (Auto) 5.8 x10^3uL (1.8-7.7) 9.3 x10^3uL (1.8-7.7) Lymphocytes # (Auto) 2.3 x10^3/uL (1.0-4.8) 2.1 x10^3/uL (1.0-4.8) Monocytes # (Auto) 1.0 x10^3/uL (0.0-1.1) 1.1 x10^3/uL (0.0-1.1) Eosinophils # (Auto) 0.1 x10^3/uL (0.0-0.7) 0.0 x10^3/uL (0.0-0.7) Basophils # (Auto) 0.1 x10^3/uL (0.0-0.2) 0.1 x10^3/uL (0.0-0.2) Prothrombin Time 14.4 SEC (11.7-14.0) Prothromb Time International Ratio 1.2 (0.8-1.1) Activated Partial Thromboplast Time 27 SEC (24-38) Sodium Level 140 mmol/L (136-145) 138 mmol/L (136-145) Potassium Level 3.9 mmol/L (3.5-5.1) 5.2 mmol/L (3.5-5.1) Chloride Level 100 mmol/L (98-107) 99 mmol/L (98-107) Carbon Dioxide Level 38 mmol/L (21-32) 37 mmol/L (21-32) Anion Gap 2 (6-14) 2 (6-14) Blood Urea Nitrogen 23 mg/dL (8-26) 28 mg/dL (8-26) Creatinine 1.5 mg/dL (0.7-1.3) 1.4 mg/dL (0.7-1.3) Estimated GFR (Cockcroft-Gault) 50.4 54.6 BUN/Creatinine Ratio 15 (6-20) Glucose Level 176 mg/dL (70-99) 180 mg/dL (70-99) Lactic Acid Level 2.0 mmol/L (0.4-2.0) 0.6 mmol/L (0.4-2.0) Calcium Level 9.1 mg/dL (8.5-10.1) 9.0 mg/dL (8.5-10.1) Total Bilirubin 0.7 mg/dL (0.2-1.0) Aspartate Amino Transf (AST/SGOT) 19 U/L (15-37) Alanine Aminotransferase (ALT/SGPT) 20 U/L (16-63) Alkaline Phosphatase 92 U/L (46-116) Total Protein 6.8 g/dL (6.4-8.2) Albumin 2.4 g/dL (3.4-5.0) Albumin/Globulin Ratio 0.5 (1.0-1.7) Procalcitonin < 0.10 ng/mL (0.00-0.10) KO-Hoi-A-Type Natriuretic Peptide 998 pg/mL (0-124) O2 Saturation 81 % (92-99) Arterial Blood pH 7.11 (7.35-7.45) Arterial Blood pCO2 at Patient Temp 140 mmHg (35-46) Arterial Blood pO2 at Patient Temp 54 mmHg (75-108) Arterial Blood HCO3 43 mmol/L (21-28) Arterial Blood Base Excess 8 mmol/L (-3-3) FiO2 36 Assessment/Plan Assessment/Plan Scrotal edema: mostly due to fluid overload, recommend scrotal elevation and diuresis if possible. Cannot rule out possiblity of scrotal cellulitis as well, given reported history of scrotal infection would continue on antibiotics per ID until edema improves and we can perform a better exam. We will periodically re- examine him. 16 Fr [place] catheter placed with some difficulty - had to be placed blindly due to patient's anatomy so unable to be done with sterile technique. 100 ml concentrated yellow urine returned. [place] management per primary team. MARY JANE NORMAN MD Sep 30, 2018 11:21
--- NOTE | 2018-09-30 11:31 | PDOC2 ---
CONSULT Date of Consult Date of Consult DATE: 09/30/18 TIME: 11:31 Reason for Consult Reason for Consult: Congestive heart failure Referring Physician Referring Physician: Dr. Church Identification/Chief Complaint Chief Complaint Testicular swelling Source Source: Chart review History of Present Illness Reason for Visit: 48-year-old male presented with this tick or swelling and redness that started 3 days prior to presentation and has been diagnosed with scrotal edema/cellulitis. He was admitted and initiated on intravenous antibiotics. Last night, he was found unresponsive and short of breath and transferred to ICU for further management. He is presently on BiPAP and unable to give any significant history. Per review of the records, he did not have any chest pain, palpitations or syncope. Past Medical History Cardiovascular: HTN Pulmonary: Other CENTRAL NERVOUS SYSTEM: Other GI: No pertinent hx Heme/Onc: No pertinent hx Hepatobiliary: No pertinent hx Psych: No pertinent hx Musculoskeletal: Other Infectious disease: Other Renal/: Chronic renal insuff Endocrine: Diabetes Past Surgical History Past Surgical History: Other Family History Family History: Diabetes, Hypertension, Family History Unknown Social History ALCOHOL: none Drugs: None Current Problem List Problem List Problems Medical Problems: (1) Obesity with serious comorbidity Status: Acute Current Medications Current Medications Current Medications Sodium Chloride 1,000 ml @ 2,190 mls/hr Q28M IV Last administered on 09/29/18at 17:52; Start 09/29/18 at 15:54; Stop 09/29/18 at 16:54; Status DC Piperacillin Sod/ Tazobactam Sod 4.5 gm/Sodium Chloride 100 ml @ 200 mls/hr 1X ONCE IV Last administered on 09/29/18at 16:51; Start 09/29/18 at 16:00; Stop 09/29/18 at 16:29; Status DC Vancomycin HCl (Vanco Per Pharmacy) 1 each 1X ONCE MC ; Start 09/29/18 at 16:00; Stop 09/29/18 at 18:10; Status DC Fentanyl Citrate (Fentanyl 2ml Vial) 50 mcg PRN Q15MIN PRN IV PAIN GREATER THAN 3/10 Last administered on 09/29/18at 17:51; Start 09/29/18 at 16:00; Stop 09/29/18 at 22:00; Status DC Vancomycin HCl 2 gm/Sodium Chloride 500 ml @ 250 mls/hr 1X ONCE IV Last administered on 09/29/18at 17:10; Start 09/29/18 at 16:15; Stop 09/29/18 at 18:14; Status DC Ondansetron HCl (Zofran) 4 mg STK-MED ONCE .ROUTE ; Start 09/29/18 at 17:00; Stop 09/29/18 at 17:01; Status DC Ondansetron HCl (Zofran) 4 mg PRN Q8HRS PRN IV NAUSEA/VOMITING; Start 09/29/18 at 19:00; Stop 09/30/18 at 08:49; Status DC Fentanyl Citrate (Fentanyl 2ml Vial) 50 mcg PRN Q1HR PRN IV PAIN; Start 09/29/18 at 19:00; Stop 09/30/18 at 18:59 Acetaminophen (Tylenol) 650 mg PRN Q4HRS PRN PO FEVER; Start 09/29/18 at 19:00; Stop 09/30/18 at 18:59 Clonidine HCl (Catapres) 0.1 mg PRN TID PRN PO HYPERTENSION, SEE COMMENTS; Start 09/29/18 at 19:00 Ceftriaxone Sodium (Rocephin) 1 gm Q24H IVP Last administered on 09/29/18at 20:47; Start 09/29/18 at 21:00; Stop 09/30/18 at 08:02; Status DC Sodium Chloride 1,000 ml @ 50 mls/hr Q20H IV ; Start 09/29/18 at 23:00 Vancomycin HCl (Vanco Per Pharmacy) 1 each PRN DAILY PRN MC SEE COMMENTS Last administered on 09/30/18at 00:29; Start 09/29/18 at 21:00; Stop 09/30/18 at 08:02; Status DC Vancomycin HCl 2 gm/Sodium Chloride 500 ml @ 250 mls/hr Q12H IV Last administered on 09/30/18at 05:05; Start 09/30/18 at 05:00; Stop 09/30/18 at 08:02; Status DC Vancomycin HCl (Vancomycin Trough Level) 1 each 1X ONCE MC ; Start 10/01/18 at 04:30; Stop 10/01/18 at 04:30; Status DC Linezolid/Dextrose 300 ml @ 300 mls/hr Q12HR IV Last administered on 09/30/18at 09:47; Start 09/30/18 at 09:00 Meropenem 1 gm/ Sodium Chloride 100 ml @ 200 mls/hr Q8HRS IV Last administered on 09/30/18at 09:41; Start 09/30/18 at 09:00 Micafungin Sodium 100 mg/Dextrose 100 ml @ 100 mls/hr Q24H IV ; Start 09/30/18 at 10:00 Ondansetron HCl (Zofran) 4 mg PRN Q6HRS PRN IV NAUSEA/VOMITING; Start 09/30/18 at 09:00 Sodium Polystyrene Sulfonate (Kayexalate) 15 gm 1X ONCE PO ; Start 09/30/18 at 09:00; Stop 09/30/18 at 09:01; Status DC Acetaminophen/ Hydrocodone Bitart (Lortab 5/325) 1 tab PRN Q4HRS PRN PO PAIN; Start 09/30/18 at 10:15 Lactobacillus Rhamnosus (Culturelle) 1 cap BID PO ; Start 09/30/18 at 21:00 Active Scripts Active Reported [No home meds] Allergies Allergies: Coded Allergies: morphine (Verified Allergy, Intermediate, 09/29/18) Bleach (Sodium Hypochlorite) (Verified Adverse Reaction, Intermediate, 02/13/18) ROS Review of System Unable to obtain Physical Exam General: mild distress, Other (on BiPAP) HEENT: Atraumatic Lungs: Other (bilateral basal crepitations) Heart: Regular rate, No murmurs Abdomen: Soft Extremities: Other (1+ edema, discoloration and chronic changes) Vitals VITALS Vital Signs Date Time Temp Pulse Resp B/P (MAP) Pulse Ox O2 Delivery O2 Flow Rate FiO2 09/30/18 11:00 97.7 75 18 124/69 (87) 95 97.7 09/30/18 10:09 BiPAP/CPAP 09/30/18 03:00 4.0 Labs Labs Laboratory Tests Test 09/29/18 15:30 09/29/18 16:35 09/30/18 03:15 09/30/18 05:53 Urine Collection Type Unknown Urine Color Yellow Urine Clarity Clear Urine pH 6.0 Urine Specific [place] 1.025 Urine Protein >=300 mg/dL (NEG-TRACE) Urine Glucose (UA) 100 mg/dL (NEG) Urine Ketones (Stick) Negative mg/dL (NEG) Urine Blood Trace (NEG) Urine Nitrite Negative (NEG) Urine Bilirubin Negative (NEG) Urine Urobilinogen Dipstick 1.0 mg/dL (0.2 mg/dL) Urine Leukocyte Esterase Negative (NEG) Urine RBC 3-5 /HPF (0-2) Urine WBC 1-4 /HPF (0-4) Urine Squamous Epithelial Cells Many /LPF Urine Transitional Epithelial Cells Few /LPF Urine Amorphous Sediment Present /HPF Urine Bacteria Few /HPF (0-FEW) Urine Hyaline Casts Many /HPF Urine Granular Casts Few /HPF Urine Mucus Marked /LPF White Blood Count 9.2 x10^3/uL (4.0-11.0) 12.7 x10^3/uL (4.0-11.0) Red Blood Count 5.35 x10^6/uL (4.30-5.70) 5.71 x10^6/uL (4.30-5.70) Hemoglobin 13.4 g/dL (13.0-17.5) 14.0 g/dL (13.0-17.5) Hematocrit 43.1 % (39.0-53.0) 46.7 % (39.0-53.0) Mean Corpuscular Volume 80 fL (79-100) 82 fL (79-100) Mean Corpuscular Hemoglobin 25 pg (25-35) 25 pg (25-35) Mean Corpuscular Hemoglobin Concent 31 g/dL (31-37) 30 g/dL (31-37) Red Cell Distribution Width 18.4 % (11.5-14.5) 19.0 % (11.5-14.5) Platelet Count 185 x10^3/uL (140-400) 227 x10^3/uL (140-400) Neutrophils (%) (Auto) 63 % (31-73) 74 % (31-73) Lymphocytes (%) (Auto) 25 % (24-48) 16 % (24-48) Monocytes (%) (Auto) 10 % (0-9) 9 % (0-9) Eosinophils (%) (Auto) 1 % (0-3) 0 % (0-3) Basophils (%) (Auto) 1 % (0-3) 1 % (0-3) Neutrophils # (Auto) 5.8 x10^3uL (1.8-7.7) 9.3 x10^3uL (1.8-7.7) Lymphocytes # (Auto) 2.3 x10^3/uL (1.0-4.8) 2.1 x10^3/uL (1.0-4.8) Monocytes # (Auto) 1.0 x10^3/uL (0.0-1.1) 1.1 x10^3/uL (0.0-1.1) Eosinophils # (Auto) 0.1 x10^3/uL (0.0-0.7) 0.0 x10^3/uL (0.0-0.7) Basophils # (Auto) 0.1 x10^3/uL (0.0-0.2) 0.1 x10^3/uL (0.0-0.2) Prothrombin Time 14.4 SEC (11.7-14.0) Prothromb Time International Ratio 1.2 (0.8-1.1) Activated Partial Thromboplast Time 27 SEC (24-38) Sodium Level 140 mmol/L (136-145) 138 mmol/L (136-145) Potassium Level 3.9 mmol/L (3.5-5.1) 5.2 mmol/L (3.5-5.1) Chloride Level 100 mmol/L (98-107) 99 mmol/L (98-107) Carbon Dioxide Level 38 mmol/L (21-32) 37 mmol/L (21-32) Anion Gap 2 (6-14) 2 (6-14) Blood Urea Nitrogen 23 mg/dL (8-26) 28 mg/dL (8-26) Creatinine 1.5 mg/dL (0.7-1.3) 1.4 mg/dL (0.7-1.3) Estimated GFR (Cockcroft-Gault) 50.4 54.6 BUN/Creatinine Ratio 15 (6-20) Glucose Level 176 mg/dL (70-99) 180 mg/dL (70-99) Lactic Acid Level 2.0 mmol/L (0.4-2.0) 0.6 mmol/L (0.4-2.0) Calcium Level 9.1 mg/dL (8.5-10.1) 9.0 mg/dL (8.5-10.1) Total Bilirubin 0.7 mg/dL (0.2-1.0) Aspartate Amino Transf (AST/SGOT) 19 U/L (15-37) Alanine Aminotransferase (ALT/SGPT) 20 U/L (16-63) Alkaline Phosphatase 92 U/L (46-116) Total Protein 6.8 g/dL (6.4-8.2) Albumin 2.4 g/dL (3.4-5.0) Albumin/Globulin Ratio 0.5 (1.0-1.7) Procalcitonin < 0.10 ng/mL (0.00-0.10) TI-Oiw-L-Type Natriuretic Peptide 998 pg/mL (0-124) O2 Saturation 81 % (92-99) Arterial Blood pH 7.11 (7.35-7.45) Arterial Blood pCO2 at Patient Temp 140 mmHg (35-46) Arterial Blood pO2 at Patient Temp 54 mmHg (75-108) Arterial Blood HCO3 43 mmol/L (21-28) Arterial Blood Base Excess 8 mmol/L (-3-3) FiO2 36 Test 09/30/18 09:30 O2 Saturation 95 % (92-99) Arterial Blood pH 7.12 (7.35-7.45) Arterial Blood pCO2 at Patient Temp 133 mmHg (35-46) Arterial Blood pO2 at Patient Temp 94 mmHg (75-108) Arterial Blood HCO3 42 mmol/L (21-28) Arterial Blood Base Excess 7 mmol/L (-3-3) FiO2 60 Laboratory Tests Test 09/29/18 15:30 09/29/18 16:35 09/30/18 03:15 09/30/18 05:53 Urine Collection Type Unknown Urine Color Yellow Urine Clarity Clear Urine pH 6.0 Urine Specific [place] 1.025 Urine Protein >=300 mg/dL (NEG-TRACE) Urine Glucose (UA) 100 mg/dL (NEG) Urine Ketones (Stick) Negative mg/dL (NEG) Urine Blood Trace (NEG) Urine Nitrite Negative (NEG) Urine Bilirubin Negative (NEG) Urine Urobilinogen Dipstick 1.0 mg/dL (0.2 mg/dL) Urine Leukocyte Esterase Negative (NEG) Urine RBC 3-5 /HPF (0-2) Urine WBC 1-4 /HPF (0-4) Urine Squamous Epithelial Cells Many /LPF Urine Transitional Epithelial Cells Few /LPF Urine Amorphous Sediment Present /HPF Urine Bacteria Few /HPF (0-FEW) Urine Hyaline Casts Many /HPF Urine Granular Casts Few /HPF Urine Mucus Marked /LPF White Blood Count 9.2 x10^3/uL (4.0-11.0) 12.7 x10^3/uL (4.0-11.0) Red Blood Count 5.35 x10^6/uL (4.30-5.70) 5.71 x10^6/uL (4.30-5.70) Hemoglobin 13.4 g/dL (13.0-17.5) 14.0 g/dL (13.0-17.5) Hematocrit 43.1 % (39.0-53.0) 46.7 % (39.0-53.0) Mean Corpuscular Volume 80 fL (79-100) 82 fL (79-100) Mean Corpuscular Hemoglobin 25 pg (25-35) 25 pg (25-35) Mean Corpuscular Hemoglobin Concent 31 g/dL (31-37) 30 g/dL (31-37) Red Cell Distribution Width 18.4 % (11.5-14.5) 19.0 % (11.5-14.5) Platelet Count 185 x10^3/uL (140-400) 227 x10^3/uL (140-400) Neutrophils (%) (Auto) 63 % (31-73) 74 % (31-73) Lymphocytes (%) (Auto) 25 % (24-48) 16 % (24-48) Monocytes (%) (Auto) 10 % (0-9) 9 % (0-9) Eosinophils (%) (Auto) 1 % (0-3) 0 % (0-3) Basophils (%) (Auto) 1 % (0-3) 1 % (0-3) Neutrophils # (Auto) 5.8 x10^3uL (1.8-7.7) 9.3 x10^3uL (1.8-7.7) Lymphocytes # (Auto) 2.3 x10^3/uL (1.0-4.8) 2.1 x10^3/uL (1.0-4.8) Monocytes # (Auto) 1.0 x10^3/uL (0.0-1.1) 1.1 x10^3/uL (0.0-1.1) Eosinophils # (Auto) 0.1 x10^3/uL (0.0-0.7) 0.0 x10^3/uL (0.0-0.7) Basophils # (Auto) 0.1 x10^3/uL (0.0-0.2) 0.1 x10^3/uL (0.0-0.2) Prothrombin Time 14.4 SEC (11.7-14.0) Prothromb Time International Ratio 1.2 (0.8-1.1) Activated Partial Thromboplast Time 27 SEC (24-38) Sodium Level 140 mmol/L (136-145) 138 mmol/L (136-145) Potassium Level 3.9 mmol/L (3.5-5.1) 5.2 mmol/L (3.5-5.1) Chloride Level 100 mmol/L (98-107) 99 mmol/L (98-107) Carbon Dioxide Level 38 mmol/L (21-32) 37 mmol/L (21-32) Anion Gap 2 (6-14) 2 (6-14) Blood Urea Nitrogen 23 mg/dL (8-26) 28 mg/dL (8-26) Creatinine 1.5 mg/dL (0.7-1.3) 1.4 mg/dL (0.7-1.3) Estimated GFR (Cockcroft-Gault) 50.4 54.6 BUN/Creatinine Ratio 15 (6-20) Glucose Level 176 mg/dL (70-99) 180 mg/dL (70-99) Lactic Acid Level 2.0 mmol/L (0.4-2.0) 0.6 mmol/L (0.4-2.0) Calcium Level 9.1 mg/dL (8.5-10.1) 9.0 mg/dL (8.5-10.1) Total Bilirubin 0.7 mg/dL (0.2-1.0) Aspartate Amino Transf (AST/SGOT) 19 U/L (15-37) Alanine Aminotransferase (ALT/SGPT) 20 U/L (16-63) Alkaline Phosphatase 92 U/L (46-116) Total Protein 6.8 g/dL (6.4-8.2) Albumin 2.4 g/dL (3.4-5.0) Albumin/Globulin Ratio 0.5 (1.0-1.7) Procalcitonin < 0.10 ng/mL (0.00-0.10) PX-Uwm-J-Type Natriuretic Peptide 998 pg/mL (0-124) O2 Saturation 81 % (92-99) Arterial Blood pH 7.11 (7.35-7.45) Arterial Blood pCO2 at Patient Temp 140 mmHg (35-46) Arterial Blood pO2 at Patient Temp 54 mmHg (75-108) Arterial Blood HCO3 43 mmol/L (21-28) Arterial Blood Base Excess 8 mmol/L (-3-3) FiO2 36 Test / 09:30 O2 Saturation 95 % (92-99) Arterial Blood pH 7.12 (7.35-7.45) Arterial Blood pCO2 at Patient Temp 133 mmHg (35-46) Arterial Blood pO2 at Patient Temp 94 mmHg (75-108) Arterial Blood HCO3 42 mmol/L (21-28) Arterial Blood Base Excess 7 mmol/L (-3-3) FiO2 60 Assessment/Plan Assessment/Plan 1. Acute on chronic diastolic heart failure: Recent 2-D echo in June 2018 showed LVEF 55%. Telemetry showed predominantly sinus rhythm with brief episodes of AT/AF. No significant pauses were noted. Diurese gently with Lasix. 2. Scrotal edema/cellulitis: Treat per ID. Urology following. Thank you for your consultation. SHIRA BONNER MD Sep 30, 2018 11:31
[2018-09-30] MEDS: MICAFUNGIN 100 MG in IV DEXTROSE 5% 100ML 100 ML IV SCH (11:33)
--- NOTE | 2018-09-30 13:55 | PDOC ---
PULMONARY PROGRESS NOTES Vitals Vital Signs Date Time Temp Pulse Resp B/P (MAP) Pulse Ox O2 Delivery O2 Flow Rate FiO2 09/30/18 12:00 Bi-pap 09/30/18 12:00 84 24 146/88 (107) 92 09/30/18 11:00 97.7 97.7 09/30/18 03:00 4.0 General: Alert, No acute distress HEENT: Other Lungs: Wheezing, Other (decreased breath sounds, increased AP diameter, no cr ackles) Cardiovascular: S1, S2, Other Abdomen: Soft, Non-tender Labs Laboratory Tests Test 09/29/18 15:30 09/29/18 16:35 09/30/18 03:15 09/30/18 05:53 Urine Collection Type Unknown Urine Color Yellow Urine Clarity Clear Urine pH 6.0 Urine Specific [place] 1.025 Urine Protein >=300 mg/dL (NEG-TRACE) Urine Glucose (UA) 100 mg/dL (NEG) Urine Ketones (Stick) Negative mg/dL (NEG) Urine Blood Trace (NEG) Urine Nitrite Negative (NEG) Urine Bilirubin Negative (NEG) Urine Urobilinogen Dipstick 1.0 mg/dL (0.2 mg/dL) Urine Leukocyte Esterase Negative (NEG) Urine RBC 3-5 /HPF (0-2) Urine WBC 1-4 /HPF (0-4) Urine Squamous Epithelial Cells Many /LPF Urine Transitional Epithelial Cells Few /LPF Urine Amorphous Sediment Present /HPF Urine Bacteria Few /HPF (0-FEW) Urine Hyaline Casts Many /HPF Urine Granular Casts Few /HPF Urine Mucus Marked /LPF White Blood Count 9.2 x10^3/uL (4.0-11.0) 12.7 x10^3/uL (4.0-11.0) Red Blood Count 5.35 x10^6/uL (4.30-5.70) 5.71 x10^6/uL (4.30-5.70) Hemoglobin 13.4 g/dL (13.0-17.5) 14.0 g/dL (13.0-17.5) Hematocrit 43.1 % (39.0-53.0) 46.7 % (39.0-53.0) Mean Corpuscular Volume 80 fL (79-100) 82 fL (79-100) Mean Corpuscular Hemoglobin 25 pg (25-35) 25 pg (25-35) Mean Corpuscular Hemoglobin Concent 31 g/dL (31-37) 30 g/dL (31-37) Red Cell Distribution Width 18.4 % (11.5-14.5) 19.0 % (11.5-14.5) Platelet Count 185 x10^3/uL (140-400) 227 x10^3/uL (140-400) Neutrophils (%) (Auto) 63 % (31-73) 74 % (31-73) Lymphocytes (%) (Auto) 25 % (24-48) 16 % (24-48) Monocytes (%) (Auto) 10 % (0-9) 9 % (0-9) Eosinophils (%) (Auto) 1 % (0-3) 0 % (0-3) Basophils (%) (Auto) 1 % (0-3) 1 % (0-3) Neutrophils # (Auto) 5.8 x10^3uL (1.8-7.7) 9.3 x10^3uL (1.8-7.7) Lymphocytes # (Auto) 2.3 x10^3/uL (1.0-4.8) 2.1 x10^3/uL (1.0-4.8) Monocytes # (Auto) 1.0 x10^3/uL (0.0-1.1) 1.1 x10^3/uL (0.0-1.1) Eosinophils # (Auto) 0.1 x10^3/uL (0.0-0.7) 0.0 x10^3/uL (0.0-0.7) Basophils # (Auto) 0.1 x10^3/uL (0.0-0.2) 0.1 x10^3/uL (0.0-0.2) Prothrombin Time 14.4 SEC (11.7-14.0) Prothromb Time International Ratio 1.2 (0.8-1.1) Activated Partial Thromboplast Time 27 SEC (24-38) Sodium Level 140 mmol/L (136-145) 138 mmol/L (136-145) Potassium Level 3.9 mmol/L (3.5-5.1) 5.2 mmol/L (3.5-5.1) Chloride Level 100 mmol/L (98-107) 99 mmol/L (98-107) Carbon Dioxide Level 38 mmol/L (21-32) 37 mmol/L (21-32) Anion Gap 2 (6-14) 2 (6-14) Blood Urea Nitrogen 23 mg/dL (8-26) 28 mg/dL (8-26) Creatinine 1.5 mg/dL (0.7-1.3) 1.4 mg/dL (0.7-1.3) Estimated GFR (Cockcroft-Gault) 50.4 54.6 BUN/Creatinine Ratio 15 (6-20) Glucose Level 176 mg/dL (70-99) 180 mg/dL (70-99) Lactic Acid Level 2.0 mmol/L (0.4-2.0) 0.6 mmol/L (0.4-2.0) Calcium Level 9.1 mg/dL (8.5-10.1) 9.0 mg/dL (8.5-10.1) Total Bilirubin 0.7 mg/dL (0.2-1.0) Aspartate Amino Transf (AST/SGOT) 19 U/L (15-37) Alanine Aminotransferase (ALT/SGPT) 20 U/L (16-63) Alkaline Phosphatase 92 U/L (46-116) Total Protein 6.8 g/dL (6.4-8.2) Albumin 2.4 g/dL (3.4-5.0) Albumin/Globulin Ratio 0.5 (1.0-1.7) Procalcitonin < 0.10 ng/mL (0.00-0.10) US-[place]uv-W-Type Natriuretic Peptide 998 pg/mL (0-124) O2 Saturation 81 % (92-99) Arterial Blood pH 7.11 (7.35-7.45) Arterial Blood pCO2 at Patient Temp 140 mmHg (35-46) Arterial Blood pO2 at Patient Temp 54 mmHg (75-108) Arterial Blood HCO3 43 mmol/L (21-28) Arterial Blood Base Excess 8 mmol/L (-3-3) FiO2 36 Test 4// 09:30 O2 Saturation 95 % (92-99) Arterial Blood pH 7.12 (7.35-7.45) Arterial Blood pCO2 at Patient Temp 133 mmHg (35-46) Arterial Blood pO2 at Patient Temp 94 mmHg (75-108) Arterial Blood HCO3 42 mmol/L (21-28) Arterial Blood Base Excess 7 mmol/L (-3-3) FiO2 60 Laboratory Tests Test 09/29/18 15:30 09/29/18 16:35 09/30/18 03:15 09/30/18 05:53 Urine Collection Type Unknown Urine Color Yellow Urine Clarity Clear Urine pH 6.0 Urine Specific [place] 1.025 Urine Protein >=300 mg/dL (NEG-TRACE) Urine Glucose (UA) 100 mg/dL (NEG) Urine Ketones (Stick) Negative mg/dL (NEG) Urine Blood Trace (NEG) Urine Nitrite Negative (NEG) Urine Bilirubin Negative (NEG) Urine Urobilinogen Dipstick 1.0 mg/dL (0.2 mg/dL) Urine Leukocyte Esterase Negative (NEG) Urine RBC 3-5 /HPF (0-2) Urine WBC 1-4 /HPF (0-4) Urine Squamous Epithelial Cells Many /LPF Urine Transitional Epithelial Cells Few /LPF Urine Amorphous Sediment Present /HPF Urine Bacteria Few /HPF (0-FEW) Urine Hyaline Casts Many /HPF Urine Granular Casts Few /HPF Urine Mucus Marked /LPF White Blood Count 9.2 x10^3/uL (4.0-11.0) 12.7 x10^3/uL (4.0-11.0) Red Blood Count 5.35 x10^6/uL (4.30-5.70) 5.71 x10^6/uL (4.30-5.70) Hemoglobin 13.4 g/dL (13.0-17.5) 14.0 g/dL (13.0-17.5) Hematocrit 43.1 % (39.0-53.0) 46.7 % (39.0-53.0) Mean Corpuscular Volume 80 fL (79-100) 82 fL (79-100) Mean Corpuscular Hemoglobin 25 pg (25-35) 25 pg (25-35) Mean Corpuscular Hemoglobin Concent 31 g/dL (31-37) 30 g/dL (31-37) Red Cell Distribution Width 18.4 % (11.5-14.5) 19.0 % (11.5-14.5) Platelet Count 185 x10^3/uL (140-400) 227 x10^3/uL (140-400) Neutrophils (%) (Auto) 63 % (31-73) 74 % (31-73) Lymphocytes (%) (Auto) 25 % (24-48) 16 % (24-48) Monocytes (%) (Auto) 10 % (0-9) 9 % (0-9) Eosinophils (%) (Auto) 1 % (0-3) 0 % (0-3) Basophils (%) (Auto) 1 % (0-3) 1 % (0-3) Neutrophils # (Auto) 5.8 x10^3uL (1.8-7.7) 9.3 x10^3uL (1.8-7.7) Lymphocytes # (Auto) 2.3 x10^3/uL (1.0-4.8) 2.1 x10^3/uL (1.0-4.8) Monocytes # (Auto) 1.0 x10^3/uL (0.0-1.1) 1.1 x10^3/uL (0.0-1.1) Eosinophils # (Auto) 0.1 x10^3/uL (0.0-0.7) 0.0 x10^3/uL (0.0-0.7) Basophils # (Auto) 0.1 x10^3/uL (0.0-0.2) 0.1 x10^3/uL (0.0-0.2) Prothrombin Time 14.4 SEC (11.7-14.0) Prothromb Time International Ratio 1.2 (0.8-1.1) Activated Partial Thromboplast Time 27 SEC (24-38) Sodium Level 140 mmol/L (136-145) 138 mmol/L (136-145) Potassium Level 3.9 mmol/L (3.5-5.1) 5.2 mmol/L (3.5-5.1) Chloride Level 100 mmol/L (98-107) 99 mmol/L (98-107) Carbon Dioxide Level 38 mmol/L (21-32) 37 mmol/L (21-32) Anion Gap 2 (6-14) 2 (6-14) Blood Urea Nitrogen 23 mg/dL (8-26) 28 mg/dL (8-26) Creatinine 1.5 mg/dL (0.7-1.3) 1.4 mg/dL (0.7-1.3) Estimated GFR (Cockcroft-Gault) 50.4 54.6 BUN/Creatinine Ratio 15 (6-20) Glucose Level 176 mg/dL (70-99) 180 mg/dL (70-99) Lactic Acid Level 2.0 mmol/L (0.4-2.0) 0.6 mmol/L (0.4-2.0) Calcium Level 9.1 mg/dL (8.5-10.1) 9.0 mg/dL (8.5-10.1) Total Bilirubin 0.7 mg/dL (0.2-1.0) Aspartate Amino Transf (AST/SGOT) 19 U/L (15-37) Alanine Aminotransferase (ALT/SGPT) 20 U/L (16-63) Alkaline Phosphatase 92 U/L (46-116) Total Protein 6.8 g/dL (6.4-8.2) Albumin 2.4 g/dL (3.4-5.0) Albumin/Globulin Ratio 0.5 (1.0-1.7) Procalcitonin < 0.10 ng/mL (0.00-0.10) NX-Pbi-W-Type Natriuretic Peptide 998 pg/mL (0-124) O2 Saturation 81 % (92-99) Arterial Blood pH 7.11 (7.35-7.45) Arterial Blood pCO2 at Patient Temp 140 mmHg (35-46) Arterial Blood pO2 at Patient Temp 54 mmHg (75-108) Arterial Blood HCO3 43 mmol/L (21-28) Arterial Blood Base Excess 8 mmol/L (-3-3) FiO2 36 Test 09/30/18 09:30 O2 Saturation 95 % (92-99) Arterial Blood pH 7.12 (7.35-7.45) Arterial Blood pCO2 at Patient Temp 133 mmHg (35-46) Arterial Blood pO2 at Patient Temp 94 mmHg (75-108) Arterial Blood HCO3 42 mmol/L (21-28) Arterial Blood Base Excess 7 mmol/L (-3-3) FiO2 60 Medications Active Scripts Medications Dose Route/Sig Max Daily Dose Days Date Category [No home meds] 09/29/18 Reported Impression . DICTATED AGREE WITH CURRENT RX FOR A/C HYPERCAPNIA RESP FAILURE THANKS DAVID URBINA MD Sep 30, 2018 13:55
[2018-09-30 16:51] LABS: BASE EXCESS ABG 6 mmol/L (-3-3); HCO3 ABG 37 mmol/L (21-28); PO2 ABG 66 mmHg (75-108); SAT O2 ABG 91 % (92-99)
[2018-09-30 18:27] LABS: FIO2 ABG 35; PCO2 ABG 88 mmHg (35-46)
[2018-09-30] MEDS: IV NORMAL SALINE 1000ML BAG 1,000 ML IV SCH (19:33)
[2018-09-30] MEDS: LACTOBACILLUS RHAMNOSUS GG 1 CAPSULE. PO SCH (20:55)
[2018-10-01] VITALS (16 sets, daily range): BP systolic 135–188; BP diastolic 61–102
[2018-10-01] MEDS: MEROPENEM 1 GM in IV NORMAL SALINE 100ML 100 ML IV SCH ×3 (05:16→22:03)
--- NOTE | 2018-10-01 05:36 | CONS ---
DATE OF CONSULTATION: 09/30/2018 ATTENDING PHYSICIAN: Dr. Virk. REASON FOR CONSULTATION: The patient seen in pulmonary consultation at the request of Dr. Virk for [id number] hypercapnic hypoxemic respiratory failure. Initial pH 7.11, PaCO2 of 140, PaO2 of 54. HISTORY OF PRESENT ILLNESS: The patient is a 48-year-old that presented back on 09/30/2018, was seen in consultation by Infectious Disease, treated for scrotal cellulitis Deepti intertrigo, leukocytosis, metabolic encephalopathy and acute respiratory failure. He was on BiPAP this morning, clinically he deteriorated. Arterial blood gas was obtained as indicated above. He was severely hypercapnic. He was transferred to the intensive care unit. He is currently on BiPAP. Repeat arterial blood gas improved. He is awake, alert, following commands, pH of 7.24, PaCO2 of 88, pO2 of 66. The patient continues to smoke on and off. He had a chest x-ray today revealing increasing left basal atelectasis, possible effusion. He is currently on antibiotics. He is receiving meropenem, Zosyn. He received one dose of vancomycin. PAST MEDICAL HISTORY: 1. Chronic hypercapnic respiratory failure. 2. Morbid obesity, body mass index of 72. 3. Prior history of septicemia, MRSA infection, recurrent scrotal cellulitis, previous history of gangrenous scrotum. 4. Sleep apnea. 5. Chronic heart failure. 6. Chronic stasis dermatitis. 7. History of acute renal insufficiency. PAST SURGICAL HISTORY: I and D of the scrotum. SOCIAL HISTORY: He is single. Smokes on and off. FAMILY HISTORY: Positive for diabetes. ALLERGIES: LISTED TO ____ AND MORPHINE. MEDICATIONS: List was reviewed. REVIEW OF SYSTEMS: As indicated in history of present illness, otherwise other systems could not be adequately reviewed as a consequence of BiPAP. PHYSICAL EXAMINATION: GENERAL: Morbid obese individual in no respiratory distress. VITAL SIGNS: Stable. He was awake, alert, following commands. He was wanting to drink some water. He has had a T-max of 99.2. HEENT: Eyes, the sclerae were nonicteric. NECK: Jugular venous distention could not be assessed secondary to body habitus. CHEST: Full expansion. LUNGS: Anteriorly were clear. CARDIOVASCULAR: Distant heart sounds. ABDOMEN: Obese. EXTREMITIES: Marked obesity. NEUROLOGIC: The patient was awake, alert, following commands. A detailed neuro exam was not performed. LABORATORY DATA: Labs were reviewed. White count was elevated. Hemoglobin and hematocrit were noted. Electrolytes were deranged. BUN was elevated, creatinine was elevated. BNP was elevated. Procalcitonin was not elevated. IMPRESSION: 1. Vkagz-[id number]-aadzkbs hypoxemic hypercapnic respiratory failure, multifactorial. 2. Abnormal x-ray, possible pneumonia Gram-negative, possible Gram-positive. 3. Scrotal cellulitis. 4. Metabolic toxic encephalopathy, present upon admission. 5. Morbid obesity, body mass index of 72. 6. Acute kidney injury. 7. Chronic stasis dermatitis. 8. Suspect obstructive sleep apnea, obesity hypoventilation syndrome. 9. Tobacco dependence. PLAN: 1. Continue current IV antibiotics, should cover pathogens in the lungs. 2. BiPAP. The patient has improved. Repeat arterial blood gas pH of 7.24, PaCO2 of 88, pO2 of 66. 3. I spoke with RN. The patient will be given a break off of BiPAP to take in some liquids. 4. Follow Infectious Disease and Urology input. I do appreciate the privilege in sharing in the patient's care. Total cumulative critical care time of 50 minutes. The above was discussed with Infectious Disease Service, RN and RT. DAVID URBINA MD DR: EUGENIO/trevor JOB#: [id number] / [id number]
[2018-10-01 05:58] LABS: CALCIUM 8.9 mg/dL (8.5-10.1); CREATININE 1.8 mg/dL (0.7-1.3); GFR 40.8; POTASSIUM 4.6 mmol/L (3.5-5.1)
[2018-10-01 06:03] LABS: BASO # 0.1 x10^3/uL (0.0-0.2); BASO % 1 % (0-3); EOS # 0.1 x10^3/uL (0.0-0.7); EOS % 1 % (0-3); HEMATOCRIT 41.9 % (39.0-53.0); HEMOGLOBIN 12.8 g/dL (13.0-17.5); LYMPH # 2.5 x10^3/uL (1.0-4.8); LYMPH % 24 % (24-48); MEAN CORPUSCULAR HEMOGLOBIN 25 pg (25-35); MEAN CORPUSCULAR HGB CONC 31 g/dL (31-37); MEAN CORPUSCULAR VOLUME 80 fL (79-100); MONO % 10 % (0-9); NEUT # 6.9 x10^3uL (1.8-7.7); NEUT % 65 % (31-73); PLATELET COUNT 188 x10^3/uL (140-400); RED BLOOD COUNT 5.22 x10^6/uL (4.30-5.70); RED CELL DISTRIBUTION WIDTH 18.4 % (11.5-14.5); WHITE BLOOD COUNT 10.6 x10^3/uL (4.0-11.0)
--- NOTE | 2018-10-01 08:22 | PDOC ---
Infectious Disease Note Subjective Subjective awake, on bipap,says is feeling better ROS ROS no n/v/d/sob Vital Sign Vital Signs Vital Signs Date Time Temp Pulse Resp B/P (MAP) Pulse Ox O2 Delivery O2 Flow Rate FiO2 10/01/18 08:06 93 BiPAP/CPAP 10/01/18 06:00 68 23 162/80 (107) 10/01/18 04:00 98.4 98.4 Physical Exam PHYSICAL EXAM GENERAL: The patient is on BiPAP and unresponsive. HEENT: Pupils equally round, reactive. Oral cavity dry. LUNGS: Poor aeration. HEART: Distant heart tones. Regular. ABDOMEN: Morbidly obese, soft, no grimace or guarding to palpation. Bowel sounds present. GENITOURINARY: Scrotum is edematous, red. No open wound noted though unable to fully assess posteriorly. Buried phallus. EXTREMITIES: Chronic venous stasis dermatitis lower extremities bilaterally. No cyanosis. SKIN: Warm without generalized rash. He has multiple tattoos. He has yeast in skin folds including pannus and groin areas. NEUROLOGIC: Grimaces to deep sternal rub; otherwise, unresponsive. Labs Lab Laboratory Tests Test 09/30/18 09:30 09/30/18 11:15 09/30/18 12:50 09/30/18 18:15 O2 Saturation 95 % (92-99) 91 % (92-99) Arterial Blood pH 7.12 (7.35-7.45) 7.24 (7.35-7.45) Arterial Blood pCO2 at Patient Temp 133 mmHg (35-46) 88 mmHg (35-46) Arterial Blood pO2 at Patient Temp 94 mmHg (75-108) 66 mmHg (75-108) Arterial Blood HCO3 42 mmol/L (21-28) 37 mmol/L (21-28) Arterial Blood Base Excess 7 mmol/L (-3-3) 6 mmol/L (-3-3) FiO2 60 35 Erythrocyte Sedimentation Rate 8 (0-15) Potassium Level 5.2 mmol/L (3.5-5.1) Test 10/01/18 04:45 White Blood Count 10.6 x10^3/uL (4.0-11.0) Red Blood Count 5.22 x10^6/uL (4.30-5.70) Hemoglobin 12.8 g/dL (13.0-17.5) Hematocrit 41.9 % (39.0-53.0) Mean Corpuscular Volume 80 fL (79-100) Mean Corpuscular Hemoglobin 25 pg (25-35) Mean Corpuscular Hemoglobin Concent 31 g/dL (31-37) Red Cell Distribution Width 18.4 % (11.5-14.5) Platelet Count 188 x10^3/uL (140-400) Neutrophils (%) (Auto) 65 % (31-73) Lymphocytes (%) (Auto) 24 % (24-48) Monocytes (%) (Auto) 10 % (0-9) Eosinophils (%) (Auto) 1 % (0-3) Basophils (%) (Auto) 1 % (0-3) Neutrophils # (Auto) 6.9 x10^3uL (1.8-7.7) Lymphocytes # (Auto) 2.5 x10^3/uL (1.0-4.8) Monocytes # (Auto) 1.0 x10^3/uL (0.0-1.1) Eosinophils # (Auto) 0.1 x10^3/uL (0.0-0.7) Basophils # (Auto) 0.1 x10^3/uL (0.0-0.2) Sodium Level 139 mmol/L (136-145) Potassium Level 4.6 mmol/L (3.5-5.1) Chloride Level 99 mmol/L (98-107) Carbon Dioxide Level 37 mmol/L (21-32) Anion Gap 3 (6-14) Blood Urea Nitrogen 28 mg/dL (8-26) Creatinine 1.8 mg/dL (0.7-1.3) Estimated GFR (Cockcroft-Gault) 40.8 Glucose Level 122 mg/dL (70-99) Calcium Level 8.9 mg/dL (8.5-10.1) Micro Microbiology 09/30/18 Blood Culture - Preliminary, Resulted NO GROWTH AFTER 1 DAY Objective Assessment 1. Scrotal cellulitis. 2. Candidal intertrigo. 3. Leukocytosis. 4. Metabolic encephalopathy. 5. Acute respiratory failure, now on BiPAP. 6. Acute kidney injury. 7. Questionable allergy/intolerance to ZOSYN. He apparently vomited during infusion. 8. Super morbid obesity, BMI 72. 9. Chronic stasis dermatitis. 10. Sleep apnea. 11. 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 Plan Plan of Care cont zyvox, meropenem and micafungin Monitor labs/renal function closely Maintain aspiration precautions May need indwelling [place] Supportive care D/w nursing [facility] prognosis poor HEATHER WU MD Oct 01, 2018 08:22
[2018-10-01 08:29] LABS: BASE EXCESS ABG 8 mmol/L (-3-3); HCO3 ABG 36 mmol/L (21-28); PO2 ABG 69 mmHg (75-108); SAT O2 ABG 93 % (92-99)
[2018-10-01 08:54] LABS: PCO2 ABG 64 mmHg (35-46)
[2018-10-01 08:55] LABS: FIO2 ABG 35
[2018-10-01] MEDS: LACTOBACILLUS RHAMNOSUS GG 1 CAPSULE. PO SCH ×2 (09:24→20:37)
[2018-10-01] MEDS: FUROSEMIDE 40 MG/4 ML VIAL. IVP SCH (09:24)
--- NOTE | 2018-10-01 09:27 | PDOC ---
PULMONARY PROGRESS NOTES Subjective OFF BIPAP FEELS BETTER Vitals Vital Signs Date Time Temp Pulse Resp B/P (MAP) Pulse Ox O2 Delivery O2 Flow Rate FiO2 10/01/18 08:06 93 BiPAP/CPAP 10/01/18 06:00 68 23 162/80 (107) 10/01/18 04:00 98.4 98.4 General: Alert, No acute distress HEENT: Other Lungs: Crackles Cardiovascular: S1, S2 Abdomen: Soft, Non-tender, Other (OBESE) Extremities: Other (OBESE) Labs Laboratory Tests Test 09/29/18 15:30 09/29/18 16:35 09/30/18 03:15 09/30/18 05:53 Urine Collection Type Unknown Urine Color Yellow Urine Clarity Clear Urine pH 6.0 Urine Specific [place] 1.025 Urine Protein >=300 mg/dL (NEG-TRACE) Urine Glucose (UA) 100 mg/dL (NEG) Urine Ketones (Stick) Negative mg/dL (NEG) Urine Blood Trace (NEG) Urine Nitrite Negative (NEG) Urine Bilirubin Negative (NEG) Urine Urobilinogen Dipstick 1.0 mg/dL (0.2 mg/dL) Urine Leukocyte Esterase Negative (NEG) Urine RBC 3-5 /HPF (0-2) Urine WBC 1-4 /HPF (0-4) Urine Squamous Epithelial Cells Many /LPF Urine Transitional Epithelial Cells Few /LPF Urine Amorphous Sediment Present /HPF Urine Bacteria Few /HPF (0-FEW) Urine Hyaline Casts Many /HPF Urine Granular Casts Few /HPF Urine Mucus Marked /LPF White Blood Count 9.2 x10^3/uL (4.0-11.0) 12.7 x10^3/uL (4.0-11.0) Red Blood Count 5.35 x10^6/uL (4.30-5.70) 5.71 x10^6/uL (4.30-5.70) Hemoglobin 13.4 g/dL (13.0-17.5) 14.0 g/dL (13.0-17.5) Hematocrit 43.1 % (39.0-53.0) 46.7 % (39.0-53.0) Mean Corpuscular Volume 80 fL (79-100) 82 fL (79-100) Mean Corpuscular Hemoglobin 25 pg (25-35) 25 pg (25-35) Mean Corpuscular Hemoglobin Concent 31 g/dL (31-37) 30 g/dL (31-37) Red Cell Distribution Width 18.4 % (11.5-14.5) 19.0 % (11.5-14.5) Platelet Count 185 x10^3/uL (140-400) 227 x10^3/uL (140-400) Neutrophils (%) (Auto) 63 % (31-73) 74 % (31-73) Lymphocytes (%) (Auto) 25 % (24-48) 16 % (24-48) Monocytes (%) (Auto) 10 % (0-9) 9 % (0-9) Eosinophils (%) (Auto) 1 % (0-3) 0 % (0-3) Basophils (%) (Auto) 1 % (0-3) 1 % (0-3) Neutrophils # (Auto) 5.8 x10^3uL (1.8-7.7) 9.3 x10^3uL (1.8-7.7) Lymphocytes # (Auto) 2.3 x10^3/uL (1.0-4.8) 2.1 x10^3/uL (1.0-4.8) Monocytes # (Auto) 1.0 x10^3/uL (0.0-1.1) 1.1 x10^3/uL (0.0-1.1) Eosinophils # (Auto) 0.1 x10^3/uL (0.0-0.7) 0.0 x10^3/uL (0.0-0.7) Basophils # (Auto) 0.1 x10^3/uL (0.0-0.2) 0.1 x10^3/uL (0.0-0.2) Prothrombin Time 14.4 SEC (11.7-14.0) Prothromb Time International Ratio 1.2 (0.8-1.1) Activated Partial Thromboplast Time 27 SEC (24-38) Sodium Level 140 mmol/L (136-145) 138 mmol/L (136-145) Potassium Level 3.9 mmol/L (3.5-5.1) 5.2 mmol/L (3.5-5.1) Chloride Level 100 mmol/L (98-107) 99 mmol/L (98-107) Carbon Dioxide Level 38 mmol/L (21-32) 37 mmol/L (21-32) Anion Gap 2 (6-14) 2 (6-14) Blood Urea Nitrogen 23 mg/dL (8-26) 28 mg/dL (8-26) Creatinine 1.5 mg/dL (0.7-1.3) 1.4 mg/dL (0.7-1.3) Estimated GFR (Cockcroft-Gault) 50.4 54.6 BUN/Creatinine Ratio 15 (6-20) Glucose Level 176 mg/dL (70-99) 180 mg/dL (70-99) Lactic Acid Level 2.0 mmol/L (0.4-2.0) 0.6 mmol/L (0.4-2.0) Calcium Level 9.1 mg/dL (8.5-10.1) 9.0 mg/dL (8.5-10.1) Total Bilirubin 0.7 mg/dL (0.2-1.0) Aspartate Amino Transf (AST/SGOT) 19 U/L (15-37) Alanine Aminotransferase (ALT/SGPT) 20 U/L (16-63) Alkaline Phosphatase 92 U/L (46-116) Total Protein 6.8 g/dL (6.4-8.2) Albumin 2.4 g/dL (3.4-5.0) Albumin/Globulin Ratio 0.5 (1.0-1.7) Procalcitonin < 0.10 ng/mL (0.00-0.10) AC-Rta-B-Type Natriuretic Peptide 998 pg/mL (0-124) O2 Saturation 81 % (92-99) Arterial Blood pH 7.11 (7.35-7.45) Arterial Blood pCO2 at Patient Temp 140 mmHg (35-46) Arterial Blood pO2 at Patient Temp 54 mmHg (75-108) Arterial Blood HCO3 43 mmol/L (21-28) Arterial Blood Base Excess 8 mmol/L (-3-3) FiO2 36 Test 09/30/18 09:30 09/30/18 11:15 09/30/18 12:50 09/30/18 18:15 O2 Saturation 95 % (92-99) 91 % (92-99) Arterial Blood pH 7.12 (7.35-7.45) 7.24 (7.35-7.45) Arterial Blood pCO2 at Patient Temp 133 mmHg (35-46) 88 mmHg (35-46) Arterial Blood pO2 at Patient Temp 94 mmHg (75-108) 66 mmHg (75-108) Arterial Blood HCO3 42 mmol/L (21-28) 37 mmol/L (21-28) Arterial Blood Base Excess 7 mmol/L (-3-3) 6 mmol/L (-3-3) FiO2 60 35 Erythrocyte Sedimentation Rate 8 (0-15) Potassium Level 5.2 mmol/L (3.5-5.1) Test 10/01/18 04:45 10/01/18 08:15 White Blood Count 10.6 x10^3/uL (4.0-11.0) Red Blood Count 5.22 x10^6/uL (4.30-5.70) Hemoglobin 12.8 g/dL (13.0-17.5) Hematocrit 41.9 % (39.0-53.0) Mean Corpuscular Volume 80 fL (79-100) Mean Corpuscular Hemoglobin 25 pg (25-35) Mean Corpuscular Hemoglobin Concent 31 g/dL (31-37) Red Cell Distribution Width 18.4 % (11.5-14.5) Platelet Count 188 x10^3/uL (140-400) Neutrophils (%) (Auto) 65 % (31-73) Lymphocytes (%) (Auto) 24 % (24-48) Monocytes (%) (Auto) 10 % (0-9) Eosinophils (%) (Auto) 1 % (0-3) Basophils (%) (Auto) 1 % (0-3) Neutrophils # (Auto) 6.9 x10^3uL (1.8-7.7) Lymphocytes # (Auto) 2.5 x10^3/uL (1.0-4.8) Monocytes # (Auto) 1.0 x10^3/uL (0.0-1.1) Eosinophils # (Auto) 0.1 x10^3/uL (0.0-0.7) Basophils # (Auto) 0.1 x10^3/uL (0.0-0.2) Sodium Level 139 mmol/L (136-145) Potassium Level 4.6 mmol/L (3.5-5.1) Chloride Level 99 mmol/L (98-107) Carbon Dioxide Level 37 mmol/L (21-32) Anion Gap 3 (6-14) Blood Urea Nitrogen 28 mg/dL (8-26) Creatinine 1.8 mg/dL (0.7-1.3) Estimated GFR (Cockcroft-Gault) 40.8 Glucose Level 122 mg/dL (70-99) Calcium Level 8.9 mg/dL (8.5-10.1) O2 Saturation 93 % (92-99) Arterial Blood pH 7.37 (7.35-7.45) Arterial Blood pCO2 at Patient Temp 64 mmHg (35-46) Arterial Blood pO2 at Patient Temp 69 mmHg (75-108) Arterial Blood HCO3 36 mmol/L (21-28) Arterial Blood Base Excess 8 mmol/L (-3-3) FiO2 35 Laboratory Tests Test 09/30/18 09:30 09/30/18 11:15 09/30/18 12:50 09/30/18 18:15 O2 Saturation 95 % (92-99) 91 % (92-99) Arterial Blood pH 7.12 (7.35-7.45) 7.24 (7.35-7.45) Arterial Blood pCO2 at Patient Temp 133 mmHg (35-46) 88 mmHg (35-46) Arterial Blood pO2 at Patient Temp 94 mmHg (75-108) 66 mmHg (75-108) Arterial Blood HCO3 42 mmol/L (21-28) 37 mmol/L (21-28) Arterial Blood Base Excess 7 mmol/L (-3-3) 6 mmol/L (-3-3) FiO2 60 35 Erythrocyte Sedimentation Rate 8 (0-15) Potassium Level 5.2 mmol/L (3.5-5.1) Test 10/01/18 04:45 10/01/18 08:15 White Blood Count 10.6 x10^3/uL (4.0-11.0) Red Blood Count 5.22 x10^6/uL (4.30-5.70) Hemoglobin 12.8 g/dL (13.0-17.5) Hematocrit 41.9 % (39.0-53.0) Mean Corpuscular Volume 80 fL (79-100) Mean Corpuscular Hemoglobin 25 pg (25-35) Mean Corpuscular Hemoglobin Concent 31 g/dL (31-37) Red Cell Distribution Width 18.4 % (11.5-14.5) Platelet Count 188 x10^3/uL (140-400) Neutrophils (%) (Auto) 65 % (31-73) Lymphocytes (%) (Auto) 24 % (24-48) Monocytes (%) (Auto) 10 % (0-9) Eosinophils (%) (Auto) 1 % (0-3) Basophils (%) (Auto) 1 % (0-3) Neutrophils # (Auto) 6.9 x10^3uL (1.8-7.7) Lymphocytes # (Auto) 2.5 x10^3/uL (1.0-4.8) Monocytes # (Auto) 1.0 x10^3/uL (0.0-1.1) Eosinophils # (Auto) 0.1 x10^3/uL (0.0-0.7) Basophils # (Auto) 0.1 x10^3/uL (0.0-0.2) Sodium Level 139 mmol/L (136-145) Potassium Level 4.6 mmol/L (3.5-5.1) Chloride Level 99 mmol/L (98-107) Carbon Dioxide Level 37 mmol/L (21-32) Anion Gap 3 (6-14) Blood Urea Nitrogen 28 mg/dL (8-26) Creatinine 1.8 mg/dL (0.7-1.3) Estimated GFR (Cockcroft-Gault) 40.8 Glucose Level 122 mg/dL (70-99) Calcium Level 8.9 mg/dL (8.5-10.1) O2 Saturation 93 % (92-99) Arterial Blood pH 7.37 (7.35-7.45) Arterial Blood pCO2 at Patient Temp 64 mmHg (35-46) Arterial Blood pO2 at Patient Temp 69 mmHg (75-108) Arterial Blood HCO3 36 mmol/L (21-28) Arterial Blood Base Excess 8 mmol/L (-3-3) FiO2 35 Medications Active Scripts Medications Dose Route/Sig Max Daily Dose Days Date Category [No home meds] 09/29/18 Reported Impression . IMPRESSION: 1. [id number] hypoxemic hypercapnic respiratory failure, multifactorial. 2. Abnormal x-ray, possible pneumonia Gram-negative, possible Gram-positive. 3. Scrotal cellulitis. 4. Metabolic toxic encephalopathy, present upon admission. 5. Morbid obesity, body mass index of 72. 6. Acute kidney injury. 7. Chronic stasis dermatitis. 8. Suspect obstructive sleep apnea, obesity hypoventilation syndrome. 9. Tobacco dependence. Plan . PRN AND QHS BIPAP 1. Continue current IV antibiotics, should cover pathogens in the lungs. 2. BiPAP. The patient has improved. Repeat arterial blood gas pH of 7.24, PaCO2 of 88, pO2 of 66. 3. I spoke with RN. The patient will be given a break off of BiPAP to take in some liquids. 4. Follow Infectious Disease and Urology input. DAVID URBINA MD Oct 01, 2018 09:27
[2018-10-01] MEDS: MICAFUNGIN 100 MG in IV DEXTROSE 5% 100ML 100 ML IV SCH (10:24)
--- NOTE | 2018-10-01 10:36 | PDOC ---
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 - he can be sleepy -WOF further inc narcs History of Present Illness History of Present Illness Transferred to ICU on BiPAP, wore it overnight, Seen in ICU He is more alert this morning. Asking for food. Cr up to 1.8 today Plan Maintain [place] catheter placed by urology Follow ID recs regarding antibiotics Add OT for lymphedema PT OT when able BiPAP per pulmonary He essentially needs to lose weight or else his problems will never get better He needs to see a bariatric specialist to see if that can help Potassium 5.2- kayexylate 15 g 1 and recheck K later Monitor that creatinine -he does have history of AK I ATN which gets worse after we gave Lasix and vancomycin for his medical issues Can transfer up to [facility] today if he does well with breakfast, needs BIPAP bedside at all times Vitals Vitals Vital Signs Date Time Temp Pulse Resp B/P (MAP) Pulse Ox O2 Delivery O2 Flow Rate FiO2 10/01/18 08:06 93 BiPAP/CPAP 10/01/18 08:00 4.0 10/01/18 06:00 68 23 162/80 (107) 10/01/18 04:00 98.4 98.4 Physical Exam Physical Exam GENERAL: The patient is on BiPAP and unresponsive. HEENT: Pupils equally round, reactive. Oral cavity dry. LUNGS: Poor aeration. HEART: Distant heart tones. Regular. ABDOMEN: Morbidly obese, soft, no grimace or guarding to palpation. Bowel sounds present. GENITOURINARY: Scrotum is edematous, red. No open wound noted though unable to fully assess posteriorly. Buried phallus. EXTREMITIES: Chronic venous stasis dermatitis lower extremities bilaterally. No cyanosis. SKIN: Warm without generalized rash. He has multiple tattoos. He has yeast in skin folds including pannus and groin areas. NEUROLOGIC: Grimaces to deep sternal rub; otherwise, unresponsive. General: Alert, Oriented X3, mild distress, Other (on BiPAP) Heart: Regular rate, No murmurs Lungs: Wheezing, Other (decreased breath sounds, increased AP diameter, no crackles) Abdomen: Soft Extremities: Other (1+ edema, discoloration and chronic changes) Skin: Other (severe redness moisture intertriginous areas-apply nystatin powder or cream) Labs LABS Laboratory Tests Test 09/30/18 11:15 09/30/18 12:50 09/30/18 18:15 10/01/18 04:45 O2 Saturation 91 % (92-99) Arterial Blood pH 7.24 (7.35-7.45) Arterial Blood pCO2 at Patient Temp 88 mmHg (35-46) Arterial Blood pO2 at Patient Temp 66 mmHg (75-108) Arterial Blood HCO3 37 mmol/L (21-28) Arterial Blood Base Excess 6 mmol/L (-3-3) FiO2 35 Erythrocyte Sedimentation Rate 8 (0-15) Potassium Level 5.2 mmol/L (3.5-5.1) 4.6 mmol/L (3.5-5.1) White Blood Count 10.6 x10^3/uL (4.0-11.0) Red Blood Count 5.22 x10^6/uL (4.30-5.70) Hemoglobin 12.8 g/dL (13.0-17.5) Hematocrit 41.9 % (39.0-53.0) Mean Corpuscular Volume 80 fL (79-100) Mean Corpuscular Hemoglobin 25 pg (25-35) Mean Corpuscular Hemoglobin Concent 31 g/dL (31-37) Red Cell Distribution Width 18.4 % (11.5-14.5) Platelet Count 188 x10^3/uL (140-400) Neutrophils (%) (Auto) 65 % (31-73) Lymphocytes (%) (Auto) 24 % (24-48) Monocytes (%) (Auto) 10 % (0-9) Eosinophils (%) (Auto) 1 % (0-3) Basophils (%) (Auto) 1 % (0-3) Neutrophils # (Auto) 6.9 x10^3uL (1.8-7.7) Lymphocytes # (Auto) 2.5 x10^3/uL (1.0-4.8) Monocytes # (Auto) 1.0 x10^3/uL (0.0-1.1) Eosinophils # (Auto) 0.1 x10^3/uL (0.0-0.7) Basophils # (Auto) 0.1 x10^3/uL (0.0-0.2) Sodium Level 139 mmol/L (136-145) Chloride Level 99 mmol/L (98-107) Carbon Dioxide Level 37 mmol/L (21-32) Anion Gap 3 (6-14) Blood Urea Nitrogen 28 mg/dL (8-26) Creatinine 1.8 mg/dL (0.7-1.3) Estimated GFR (Cockcroft-Gault) 40.8 Glucose Level 122 mg/dL (70-99) Calcium Level 8.9 mg/dL (8.5-10.1) Test 10/01/18 08:15 O2 Saturation 93 % (92-99) Arterial Blood pH 7.37 (7.35-7.45) Arterial Blood pCO2 at Patient Temp 64 mmHg (35-46) Arterial Blood pO2 at Patient Temp 69 mmHg (75-108) Arterial Blood HCO3 36 mmol/L (21-28) Arterial Blood Base Excess 8 mmol/L (-3-3) FiO2 35 Assessment and Plan Assessmemt and Plan Problems Medical Problems: (1) Obesity with serious comorbidity Status: Acute Comment Review of Relevant I have reviewed the following items adolfo (where applicable) has been applied. Labs Laboratory Tests Test 09/29/18 15:30 09/29/18 16:35 09/30/18 03:15 09/30/18 05:53 Urine Collection Type Unknown Urine Color Yellow Urine Clarity Clear Urine pH 6.0 Urine Specific Armstrong 1.025 Urine Protein >=300 mg/dL (NEG-TRACE) Urine Glucose (UA) 100 mg/dL (NEG) Urine Ketones (Stick) Negative mg/dL (NEG) Urine Blood Trace (NEG) Urine Nitrite Negative (NEG) Urine Bilirubin Negative (NEG) Urine Urobilinogen Dipstick 1.0 mg/dL (0.2 mg/dL) Urine Leukocyte Esterase Negative (NEG) Urine RBC 3-5 /HPF (0-2) Urine WBC 1-4 /HPF (0-4) Urine Squamous Epithelial Cells Many /LPF Urine Transitional Epithelial Cells Few /LPF Urine Amorphous Sediment Present /HPF Urine Bacteria Few /HPF (0-FEW) Urine Hyaline Casts Many /HPF Urine Granular Casts Few /HPF Urine Mucus Marked /LPF White Blood Count 9.2 x10^3/uL (4.0-11.0) 12.7 x10^3/uL (4.0-11.0) Red Blood Count 5.35 x10^6/uL (4.30-5.70) 5.71 x10^6/uL (4.30-5.70) Hemoglobin 13.4 g/dL (13.0-17.5) 14.0 g/dL (13.0-17.5) Hematocrit 43.1 % (39.0-53.0) 46.7 % (39.0-53.0) Mean Corpuscular Volume 80 fL (79-100) 82 fL (79-100) Mean Corpuscular Hemoglobin 25 pg (25-35) 25 pg (25-35) Mean Corpuscular Hemoglobin Concent 31 g/dL (31-37) 30 g/dL (31-37) Red Cell Distribution Width 18.4 % (11.5-14.5) 19.0 % (11.5-14.5) Platelet Count 185 x10^3/uL (140-400) 227 x10^3/uL (140-400) Neutrophils (%) (Auto) 63 % (31-73) 74 % (31-73) Lymphocytes (%) (Auto) 25 % (24-48) 16 % (24-48) Monocytes (%) (Auto) 10 % (0-9) 9 % (0-9) Eosinophils (%) (Auto) 1 % (0-3) 0 % (0-3) Basophils (%) (Auto) 1 % (0-3) 1 % (0-3) Neutrophils # (Auto) 5.8 x10^3uL (1.8-7.7) 9.3 x10^3uL (1.8-7.7) Lymphocytes # (Auto) 2.3 x10^3/uL (1.0-4.8) 2.1 x10^3/uL (1.0-4.8) Monocytes # (Auto) 1.0 x10^3/uL (0.0-1.1) 1.1 x10^3/uL (0.0-1.1) Eosinophils # (Auto) 0.1 x10^3/uL (0.0-0.7) 0.0 x10^3/uL (0.0-0.7) Basophils # (Auto) 0.1 x10^3/uL (0.0-0.2) 0.1 x10^3/uL (0.0-0.2) Prothrombin Time 14.4 SEC (11.7-14.0) Prothromb Time International Ratio 1.2 (0.8-1.1) Activated Partial Thromboplast Time 27 SEC (24-38) Sodium Level 140 mmol/L (136-145) 138 mmol/L (136-145) Potassium Level 3.9 mmol/L (3.5-5.1) 5.2 mmol/L (3.5-5.1) Chloride Level 100 mmol/L (98-107) 99 mmol/L (98-107) Carbon Dioxide Level 38 mmol/L (21-32) 37 mmol/L (21-32) Anion Gap 2 (6-14) 2 (6-14) Blood Urea Nitrogen 23 mg/dL (8-26) 28 mg/dL (8-26) Creatinine 1.5 mg/dL (0.7-1.3) 1.4 mg/dL (0.7-1.3) Estimated GFR (Cockcroft-Gault) 50.4 54.6 BUN/Creatinine Ratio 15 (6-20) Glucose Level 176 mg/dL (70-99) 180 mg/dL (70-99) Lactic Acid Level 2.0 mmol/L (0.4-2.0) 0.6 mmol/L (0.4-2.0) Calcium Level 9.1 mg/dL (8.5-10.1) 9.0 mg/dL (8.5-10.1) Total Bilirubin 0.7 mg/dL (0.2-1.0) Aspartate Amino Transf (AST/SGOT) 19 U/L (15-37) Alanine Aminotransferase (ALT/SGPT) 20 U/L (16-63) Alkaline Phosphatase 92 U/L (46-116) Total Protein 6.8 g/dL (6.4-8.2) Albumin 2.4 g/dL (3.4-5.0) Albumin/Globulin Ratio 0.5 (1.0-1.7) Procalcitonin < 0.10 ng/mL (0.00-0.10) [id number] Natriuretic Peptide 998 pg/mL (0-124) O2 Saturation 81 % (92-99) Arterial Blood pH 7.11 (7.35-7.45) Arterial Blood pCO2 at Patient Temp 140 mmHg (35-46) Arterial Blood pO2 at Patient Temp 54 mmHg (75-108) Arterial Blood HCO3 43 mmol/L (21-28) Arterial Blood Base Excess 8 mmol/L (-3-3) FiO2 36 Test 09/30/18 09:30 09/30/18 11:15 09/30/18 12:50 09/30/18 18:15 O2 Saturation 95 % (92-99) 91 % (92-99) Arterial Blood pH 7.12 (7.35-7.45) 7.24 (7.35-7.45) Arterial Blood pCO2 at Patient Temp 133 mmHg (35-46) 88 mmHg (35-46) Arterial Blood pO2 at Patient Temp 94 mmHg (75-108) 66 mmHg (75-108) Arterial Blood HCO3 42 mmol/L (21-28) 37 mmol/L (21-28) Arterial Blood Base Excess 7 mmol/L (-3-3) 6 mmol/L (-3-3) FiO2 60 35 Erythrocyte Sedimentation Rate 8 (0-15) Potassium Level 5.2 mmol/L (3.5-5.1) Test 10/01/18 04:45 10/01/18 08:15 White Blood Count 10.6 x10^3/uL (4.0-11.0) Red Blood Count 5.22 x10^6/uL (4.30-5.70) Hemoglobin 12.8 g/dL (13.0-17.5) Hematocrit 41.9 % (39.0-53.0) Mean Corpuscular Volume 80 fL (79-100) Mean Corpuscular Hemoglobin 25 pg (25-35) Mean Corpuscular Hemoglobin Concent 31 g/dL (31-37) Red Cell Distribution Width 18.4 % (11.5-14.5) Platelet Count 188 x10^3/uL (140-400) Neutrophils (%) (Auto) 65 % (31-73) Lymphocytes (%) (Auto) 24 % (24-48) Monocytes (%) (Auto) 10 % (0-9) Eosinophils (%) (Auto) 1 % (0-3) Basophils (%) (Auto) 1 % (0-3) Neutrophils # (Auto) 6.9 x10^3uL (1.8-7.7) Lymphocytes # (Auto) 2.5 x10^3/uL (1.0-4.8) Monocytes # (Auto) 1.0 x10^3/uL (0.0-1.1) Eosinophils # (Auto) 0.1 x10^3/uL (0.0-0.7) Basophils # (Auto) 0.1 x10^3/uL (0.0-0.2) Sodium Level 139 mmol/L (136-145) Potassium Level 4.6 mmol/L (3.5-5.1) Chloride Level 99 mmol/L (98-107) Carbon Dioxide Level 37 mmol/L (21-32) Anion Gap 3 (6-14) Blood Urea Nitrogen 28 mg/dL (8-26) Creatinine 1.8 mg/dL (0.7-1.3) Estimated GFR (Cockcroft-Gault) 40.8 Glucose Level 122 mg/dL (70-99) Calcium Level 8.9 mg/dL (8.5-10.1) O2 Saturation 93 % (92-99) Arterial Blood pH 7.37 (7.35-7.45) Arterial Blood pCO2 at Patient Temp 64 mmHg (35-46) Arterial Blood pO2 at Patient Temp 69 mmHg (75-108) Arterial Blood HCO3 36 mmol/L (21-28) Arterial Blood Base Excess 8 mmol/L (-3-3) FiO2 35 Laboratory Tests Test 09/30/18 11:15 09/30/18 12:50 09/30/18 18:15 10/01/18 04:45 O2 Saturation 91 % (92-99) Arterial Blood pH 7.24 (7.35-7.45) Arterial Blood pCO2 at Patient Temp 88 mmHg (35-46) Arterial Blood pO2 at Patient Temp 66 mmHg (75-108) Arterial Blood HCO3 37 mmol/L (21-28) Arterial Blood Base Excess 6 mmol/L (-3-3) FiO2 35 Erythrocyte Sedimentation Rate 8 (0-15) Potassium Level 5.2 mmol/L (3.5-5.1) 4.6 mmol/L (3.5-5.1) White Blood Count 10.6 x10^3/uL (4.0-11.0) Red Blood Count 5.22 x10^6/uL (4.30-5.70) Hemoglobin 12.8 g/dL (13.0-17.5) Hematocrit 41.9 % (39.0-53.0) Mean Corpuscular Volume 80 fL (79-100) Mean Corpuscular Hemoglobin 25 pg (25-35) Mean Corpuscular Hemoglobin Concent 31 g/dL (31-37) Red Cell Distribution Width 18.4 % (11.5-14.5) Platelet Count 188 x10^3/uL (140-400) Neutrophils (%) (Auto) 65 % (31-73) Lymphocytes (%) (Auto) 24 % (24-48) Monocytes (%) (Auto) 10 % (0-9) Eosinophils (%) (Auto) 1 % (0-3) Basophils (%) (Auto) 1 % (0-3) Neutrophils # (Auto) 6.9 x10^3uL (1.8-7.7) Lymphocytes # (Auto) 2.5 x10^3/uL (1.0-4.8) Monocytes # (Auto) 1.0 x10^3/uL (0.0-1.1) Eosinophils # (Auto) 0.1 x10^3/uL (0.0-0.7) Basophils # (Auto) 0.1 x10^3/uL (0.0-0.2) Sodium Level 139 mmol/L (136-145) Chloride Level 99 mmol/L (98-107) Carbon Dioxide Level 37 mmol/L (21-32) Anion Gap 3 (6-14) Blood Urea Nitrogen 28 mg/dL (8-26) Creatinine 1.8 mg/dL (0.7-1.3) Estimated GFR (Cockcroft-Gault) 40.8 Glucose Level 122 mg/dL (70-99) Calcium Level 8.9 mg/dL (8.5-10.1) Test 10/01/18 08:15 O2 Saturation 93 % (92-99) Arterial Blood pH 7.37 (7.35-7.45) Arterial Blood pCO2 at Patient Temp 64 mmHg (35-46) Arterial Blood pO2 at Patient Temp 69 mmHg (75-108) Arterial Blood HCO3 36 mmol/L (21-28) Arterial Blood Base Excess 8 mmol/L (-3-3) FiO2 35 Microbiology 09/30/18 Blood Culture - Preliminary, Resulted NO GROWTH AFTER 1 DAY Medications Current Medications Sodium Chloride 1,000 ml @ 2,190 mls/hr Q28M IV Last administered on 09/29/18at 17:52; Start 09/29/18 at 15:54; Stop 09/29/18 at 16:54; Status DC Piperacillin Sod/ Tazobactam Sod 4.5 gm/Sodium Chloride 100 ml @ 200 mls/hr 1X ONCE IV Last administered on 09/29/18at 16:51; Start 09/29/18 at 16:00; Stop 09/29/18 at 16:29; Status DC Vancomycin HCl (Vanco Per Pharmacy) 1 each 1X ONCE MC ; Start 09/29/18 at 16:00; Stop 09/29/18 at 18:10; Status DC Fentanyl Citrate (Fentanyl 2ml Vial) 50 mcg PRN Q15MIN PRN IV PAIN GREATER THAN 3/10 Last administered on 09/29/18at 17:51; Start 09/29/18 at 16:00; Stop 09/29/18 at 22:00; Status DC Vancomycin HCl 2 gm/Sodium Chloride 500 ml @ 250 mls/hr 1X ONCE IV Last administered on 09/29/18at 17:10; Start 09/29/18 at 16:15; Stop 09/29/18 at 18:14; Status DC Ondansetron HCl (Zofran) 4 mg STK-MED ONCE .ROUTE ; Start 09/29/18 at 17:00; Stop 09/29/18 at 17:01; Status DC Ondansetron HCl (Zofran) 4 mg PRN Q8HRS PRN IV NAUSEA/VOMITING; Start 09/29/18 at 19:00; Stop 09/30/18 at 08:49; Status DC Fentanyl Citrate (Fentanyl 2ml Vial) 50 mcg PRN Q1HR PRN IV PAIN; Start 09/29/18 at 19:00; Stop 09/30/18 at 18:59; Status DC Acetaminophen (Tylenol) 650 mg PRN Q4HRS PRN PO FEVER; Start 09/29/18 at 19:00; Stop 09/30/18 at 18:59; Status DC Clonidine HCl (Catapres) 0.1 mg PRN TID PRN PO HYPERTENSION, SEE COMMENTS; Start 09/29/18 at 19:00 Ceftriaxone Sodium (Rocephin) 1 gm Q24H IVP Last administered on 09/29/18at 20:47; Start 09/29/18 at 21:00; Stop 09/30/18 at 08:02; Status DC Sodium Chloride 1,000 ml @ 50 mls/hr Q20H IV Last administered on 09/30/18at 19:33; Start 09/29/18 at 23:00 Vancomycin HCl (Vanco Per Pharmacy) 1 each PRN DAILY PRN MC SEE COMMENTS Last administered on 09/30/18at 00:29; Start 09/29/18 at 21:00; Stop 09/30/18 at 08:02; Status DC Vancomycin HCl 2 gm/Sodium Chloride 500 ml @ 250 mls/hr Q12H IV Last administered on 09/30/18at 05:05; Start 09/30/18 at 05:00; Stop 09/30/18 at 08:02; Status DC Vancomycin HCl (Vancomycin Trough Level) 1 each 1X ONCE MC ; Start 10/01/18 at 04:30; Stop 10/01/18 at 04:30; Status DC Linezolid/Dextrose 300 ml @ 300 mls/hr Q12HR IV Last administered on 10/01/18at 09:25; Start 09/30/18 at 09:00 Meropenem 1 gm/ Sodium Chloride 100 ml @ 200 mls/hr Q8HRS IV Last administered on 10/01/18at 05:16; Start 09/30/18 at 09:00 Micafungin Sodium 100 mg/Dextrose 100 ml @ 100 mls/hr Q24H IV Last administered on 10/01/18at 10:24; Start 09/30/18 at 10:00 Ondansetron HCl (Zofran) 4 mg PRN Q6HRS PRN IV NAUSEA/VOMITING; Start 09/30/18 at 09:00 Sodium Polystyrene Sulfonate (Kayexalate) 15 gm 1X ONCE PO ; Start 09/30/18 at 09:00; Stop 09/30/18 at 09:01; Status DC Acetaminophen/ Hydrocodone Bitart (Lortab 5/325) 1 tab PRN Q4HRS PRN PO PAIN; Start 09/30/18 at 10:15 Lactobacillus Rhamnosus (Culturelle) 1 cap BID PO Last administered on 10/01/18at 09:24; Start 09/30/18 at 21:00 Sodium Polystyrene Sulfonate (Kayexalate) 15 gm 1X ONCE PO Last administered on 09/30/18at 18:38; Start 09/30/18 at 15:15; Stop 09/30/18 at 15:16; Status DC Furosemide (Lasix) 40 mg DAILY IVP Last administered on 10/01/18at 09:24; Start 10/01/18 at 09:00 Active Scripts Active Reported [No home meds] Vitals/I & O Vital Sign - Last 24 Hours 09/30/18 09/30/18 09/30/18 09/30/18 11:00 12:00 12:00 12:09 Temp 97.7 97.7 Pulse 75 84 Resp 18 24 B/P (MAP) 124/69 (87) 146/88 (107) Pulse Ox 95 92 94 O2 Delivery Bi-pap BiPAP/CPAP 09/30/18 09/30/18 09/30/18 09/30/18 13:00 14:00 14:55 15:00 Temp 97.7 97.7 Pulse 74 106 81 Resp 24 24 15 B/P (MAP) 112/68 (83) 145/98 (114) 111/70 (84) Pulse Ox 92 87 98 93 O2 Delivery BiPAP/CPAP 09/30/18 09/30/18 09/30/18 09/30/18 16:00 16:00 17:00 18:00 Pulse 71 81 79 Resp 24 20 24 B/P (MAP) 161/83 (109) 158/87 (110) 156/79 (104) Pulse Ox 95 93 95 O2 Delivery Bi-pap 09/30/18 09/30/18 09/30/18 09/30/18 18:20 19:00 20:00 20:00 Temp 98.2 98.2 Pulse 112 112 Resp 10 28 B/P (MAP) 156/85 (108) 148/112 (124) Pulse Ox 94 93 92 O2 Delivery BiPAP/CPAP Bi-pap 09/30/18 09/30/18 09/30/18 09/30/18 20:07 21:00 22:00 23:00 Pulse 113 75 72 Resp 26 23 20 B/P (MAP) 170/112 (131) 173/87 (115) 156/93 (114) Pulse Ox 93 93 93 96 O2 Delivery BiPAP/CPAP 09/30/18 10/01/18 10/01/18 10/01/18 23:51 00:00 00:00 01:00 Temp 98.5 98.5 Pulse 83 72 Resp 24 24 B/P (MAP) 135/61 (85) 166/87 (113) Pulse Ox 97 95 95 O2 Delivery BiPAP/CPAP Bi-pap 10/01/18 10/01/18 10/01/18 10/01/18 02:00 02:56 03:00 03:36 Pulse 80 76 Resp 21 23 B/P (MAP) 188/82 (117) 179/77 (111) Pulse Ox 90 95 98 O2 Delivery BiPAP/CPAP BiPAP/CPAP Bi-pap 10/01/18 10/01/18 10/01/18 10/01/18 04:00 05:00 05:19 06:00 Temp 98.4 98.4 Pulse 74 76 68 Resp 24 23 23 B/P (MAP) 151/91 (111) 157/90 (112) 162/80 (107) Pulse Ox 95 95 96 94 O2 Delivery BiPAP/CPAP BiPAP/CPAP BiPAP/CPAP BiPAP/CPAP 10/01/18 10/01/18 10/01/18 08:00 08:00 08:06 Pulse Ox 93 O2 Delivery Bi-pap BiPAP/CPAP O2 Flow Rate 4.0 Intake and Output 09/30/18 09/30/18 10/01/18 14:59 22:59 06:59 Intake Total 60 ml 1385 ml 1000 ml Output Total 280 ml 445 ml 363 ml Balance -220 ml 940 ml 637 ml FRANCISCO AJVIER NICHOLSON MD Oct 01, 2018 10:36
--- NOTE | 2018-10-01 12:32 | PDOC ---
ASIF QUINTANILLA Nishi [employer] 10/01/18 1232: SUBJECTIVE Subjective Patient doing well, no pain today. Swelling only minimally reduced. Catheter working well. OBJECTIVE Objective Physical Exam: General appearance: Alert and Oriented Head: Normocephalic, without obvious abnormality Eyes: conjunctivae/corneas clear. PERRL, EOM's intact. Fundi benign Lungs: Regular respirations, non labored breathing Abdomen: soft, non-tender, obese. No masses, no organomegaly Pelvic: + scrotal swelling with Acuña catheter in place draining clear yellow urine. Buried phallus. Vital Signs Vital Signs Date Time Temp Pulse Resp B/P (MAP) Pulse Ox O2 Delivery O2 Flow Rate FiO2 10/01/18 12:08 4.0 10/01/18 11:00 68 23 140/82 (101) 94 Venturi Mask 10/01/18 10:00 78 23 145/90 (108) 94 Venturi Mask 10/01/18 09:00 72 23 155/99 (117) 94 Venturi Mask 10/01/18 08:06 93 BiPAP/CPAP 10/01/18 08:00 Bi-pap 10/01/18 08:00 4.0 10/01/18 08:00 70 23 154/100 (118) 94 BiPAP/CPAP 10/01/18 06:00 68 23 162/80 (107) 94 BiPAP/CPAP 10/01/18 05:19 96 BiPAP/CPAP 10/01/18 05:00 76 23 157/90 (112) 95 BiPAP/CPAP 10/01/18 04:00 98.4 74 24 151/91 (111) 95 BiPAP/CPAP 98.4 10/01/18 03:36 Bi-pap 10/01/18 03:00 76 23 179/77 (111) 98 BiPAP/CPAP 10/01/18 02:56 95 BiPAP/CPAP 10/01/18 02:00 80 21 188/82 (117) 90 10/01/18 01:00 72 24 166/87 (113) 95 10/01/18 00:00 98.5 83 24 135/61 (85) 95 98.5 10/01/18 00:00 Bi-pap 09/30/18 23:51 97 BiPAP/CPAP 09/30/18 23:00 72 20 156/93 (114) 96 09/30/18 22:00 75 23 173/87 (115) 93 09/30/18 21:00 113 26 170/112 (131) 93 09/30/18 20:07 93 BiPAP/CPAP 09/30/18 20:00 112 28 148/112 (124) 92 09/30/18 20:00 Bi-pap 09/30/18 19:00 98.2 112 10 156/85 (108) 93 98.2 09/30/18 18:20 94 BiPAP/CPAP 09/30/18 18:00 79 24 156/79 (104) 95 09/30/18 17:00 81 20 158/87 (110) 93 09/30/18 16:00 Bi-pap 09/30/18 16:00 71 24 161/83 (109) 95 09/30/18 15:00 97.7 81 15 111/70 (84) 93 97.7 09/30/18 14:55 98 BiPAP/CPAP 09/30/18 14:00 106 24 145/98 (114) 87 09/30/18 13:00 74 24 112/68 (83) 92 I & O Intake and Output 10/01/18 07:00 Intake Total 2445 ml Output Total 1118 ml Balance 1327 ml Intake Oral 1280 ml IV Total 1165 ml Output Urine Total 1118 ml PHYSICAL EXAM Physical Exam Physical Exam: General appearance: Alert and Oriented Head: Normocephalic, without obvious abnormality Eyes: conjunctivae/corneas clear. PERRL, EOM's intact. Fundi benign Lungs: Regular respirations, non labored breathing Abdomen: soft, non-tender, obese. No masses, no organomegaly Pelvic: + scrotal swelling with Acuña catheter in place draining clear yellow urine. Buried phallus. ASSESSMENT/PLAN Assessment/Plan Scrotal edema: mostly due to fluid overload, recommend scrotal elevation and diuresis if possible. Cannot rule out possibility of scrotal cellulitis as well, given reported history of scrotal infection would continue on antibiotics per ID until edema improves and we can perform a better exam. We will periodically re- examine him. Nursing to maintain acuña catheter until patient is able to be more mobile. Encouraged weight loss for prevention of this condition. Will follow peripherally while in house. COMMENT Lab Laboratory Tests Test 09/30/18 12:50 09/30/18 18:15 10/01/18 04:45 10/01/18 08:15 Erythrocyte Sedimentation Rate 8 (0-15) Potassium Level 5.2 mmol/L (3.5-5.1) 4.6 mmol/L (3.5-5.1) White Blood Count 10.6 x10^3/uL (4.0-11.0) Red Blood Count 5.22 x10^6/uL (4.30-5.70) Hemoglobin 12.8 g/dL (13.0-17.5) Hematocrit 41.9 % (39.0-53.0) Mean Corpuscular Volume 80 fL (79-100) Mean Corpuscular Hemoglobin 25 pg (25-35) Mean Corpuscular Hemoglobin Concent 31 g/dL (31-37) Red Cell Distribution Width 18.4 % (11.5-14.5) Platelet Count 188 x10^3/uL (140-400) Neutrophils (%) (Auto) 65 % (31-73) Lymphocytes (%) (Auto) 24 % (24-48) Monocytes (%) (Auto) 10 % (0-9) Eosinophils (%) (Auto) 1 % (0-3) Basophils (%) (Auto) 1 % (0-3) Neutrophils # (Auto) 6.9 x10^3uL (1.8-7.7) Lymphocytes # (Auto) 2.5 x10^3/uL (1.0-4.8) Monocytes # (Auto) 1.0 x10^3/uL (0.0-1.1) Eosinophils # (Auto) 0.1 x10^3/uL (0.0-0.7) Basophils # (Auto) 0.1 x10^3/uL (0.0-0.2) Sodium Level 139 mmol/L (136-145) Chloride Level 99 mmol/L (98-107) Carbon Dioxide Level 37 mmol/L (21-32) Anion Gap 3 (6-14) Blood Urea Nitrogen 28 mg/dL (8-26) Creatinine 1.8 mg/dL (0.7-1.3) Estimated GFR (Cockcroft-Gault) 40.8 Glucose Level 122 mg/dL (70-99) Calcium Level 8.9 mg/dL (8.5-10.1) O2 Saturation 93 % (92-99) Arterial Blood pH 7.37 (7.35-7.45) Arterial Blood pCO2 at Patient Temp 64 mmHg (35-46) Arterial Blood pO2 at Patient Temp 69 mmHg (75-108) Arterial Blood HCO3 36 mmol/L (21-28) Arterial Blood Base Excess 8 mmol/L (-3-3) FiO2 35 MARY JANE NORMAN MD 10/04/18 1548: ASSESSMENT/PLAN Assessment/Plan Agree with assessment and plan. ASIF QUINTANILLA P[employer] C[employer]ER Oct 01, 2018 12:32 MARY JANE NORMAN MD October 04, 2018 15:48
[2018-10-01] MEDS: IV NORMAL SALINE 1000ML BAG 1,000 ML IV SCH (14:47)
[2018-10-01] MEDS ORDERED: VITS A & D/LANOLIN TOPICAL OINTMENT 56GM TUBE. TP PRN (16:30)
[2018-10-01] MEDS ORDERED: ALBUMIN HUMAN 25% 100 ML IV PRN (16:45)
[2018-10-01] MEDS: cloNIDine HCL 0.1 MG TABLET PO PRN ×2 (17:56→21:26)
--- NOTE | 2018-10-01 21:01 | PDOC ---
PROGRESS NOTES Subjective Subjective Feels better today. Off BiPAP Objective Objective Vital Signs Date Time Temp Pulse Resp B/P (MAP) Pulse Ox O2 Delivery O2 Flow Rate FiO2 10/01/18 20:00 117 23 158/88 (111) 97 BiPAP/CPAP 10/01/18 19:00 98.3 3.0 98.3 Intake and Output 10/01/18 07:00 Intake Total 2445 ml Output Total 1118 ml Balance 1327 ml Intake Oral 1280 ml IV Total 1165 ml Output Urine Total 1118 ml Physical Exam Abdomen: Soft Heart: Regular rate, No murmurs Extremities: Other (1+ edema, discoloration and chronic changes) General: Alert, Oriented X3, mild distress, Other (on BiPAP) HEENT: Atraumatic Lungs: Other (bilateral basal crepitations) MUSCULOSKELETAL: Osteoarthritic changes both hands Skin: Other (severe redness moisture intertriginous areas-apply nystatin powder or cream) Assessment Assessment 1. Acute on chronic diastolic heart failure: Recent 2-D echo in June 2018 showed LVEF 55%. Telemetry showed predominantly sinus rhythm with brief episodes of AT/AF. No significant pauses were noted. Improving with Lasix. Continue current medical regimen 2. Scrotal edema/cellulitis: Treat per ID. Urology following. 3. Morbid obesity Plan Plan of Care Problems Medical Problems: (1) Obesity with serious comorbidity Status: Acute Comment Review of Relevant I have reviewed the following items adolfo (where applicable) has been applied. Labs Laboratory Tests Test 10/01/18 04:45 10/01/18 08:15 White Blood Count 10.6 x10^3/uL (4.0-11.0) Red Blood Count 5.22 x10^6/uL (4.30-5.70) Hemoglobin 12.8 g/dL (13.0-17.5) Hematocrit 41.9 % (39.0-53.0) Mean Corpuscular Volume 80 fL (79-100) Mean Corpuscular Hemoglobin 25 pg (25-35) Mean Corpuscular Hemoglobin Concent 31 g/dL (31-37) Red Cell Distribution Width 18.4 % (11.5-14.5) Platelet Count 188 x10^3/uL (140-400) Neutrophils (%) (Auto) 65 % (31-73) Lymphocytes (%) (Auto) 24 % (24-48) Monocytes (%) (Auto) 10 % (0-9) Eosinophils (%) (Auto) 1 % (0-3) Basophils (%) (Auto) 1 % (0-3) Neutrophils # (Auto) 6.9 x10^3uL (1.8-7.7) Lymphocytes # (Auto) 2.5 x10^3/uL (1.0-4.8) Monocytes # (Auto) 1.0 x10^3/uL (0.0-1.1) Eosinophils # (Auto) 0.1 x10^3/uL (0.0-0.7) Basophils # (Auto) 0.1 x10^3/uL (0.0-0.2) Sodium Level 139 mmol/L (136-145) Potassium Level 4.6 mmol/L (3.5-5.1) Chloride Level 99 mmol/L (98-107) Carbon Dioxide Level 37 mmol/L (21-32) Anion Gap 3 (6-14) Blood Urea Nitrogen 28 mg/dL (8-26) Creatinine 1.8 mg/dL (0.7-1.3) Estimated GFR (Cockcroft-Gault) 40.8 Glucose Level 122 mg/dL (70-99) Calcium Level 8.9 mg/dL (8.5-10.1) O2 Saturation 93 % (92-99) Arterial Blood pH 7.37 (7.35-7.45) Arterial Blood pCO2 at Patient Temp 64 mmHg (35-46) Arterial Blood pO2 at Patient Temp 69 mmHg (75-108) Arterial Blood HCO3 36 mmol/L (21-28) Arterial Blood Base Excess 8 mmol/L (-3-3) FiO2 35 Microbiology 09/30/18 Blood Culture - Preliminary, Resulted NO GROWTH AFTER 1 DAY Medications Current Medications Albumin Human 100 ml @ 100 mls/hr PRN DAILY PRN IV htn Last administered on 10/01/18at 17:02; Start 10/01/18 at 16:45 Furosemide (Lasix) 40 mg DAILY IVP Last administered on 10/01/18at 09:24; Start 10/01/18 at 09:00 Lactobacillus Rhamnosus (Culturelle) 1 cap BID PO Last administered on 10/01/18at 20:37; Start 09/30/18 at 21:00 Vancomycin HCl (Vancomycin Trough Level) 1 each 1X ONCE MC ; Start 10/01/18 at 04:30; Stop 10/01/18 at 04:30; Status DC Vitamin A/Vitamin D (Vitamin A & D Ointment) 1 jason PRN Q1HR PRN TP SKIN PROTECTION; Start 10/01/18 at 16:30 Vitals/I & O Vital Sign - Last 24 Hours 09/30/18 09/30/18 09/30/18 09/30/18 21:00 22:00 23:00 23:51 Pulse 113 75 72 Resp 26 23 20 B/P (MAP) 170/112 (131) 173/87 (115) 156/93 (114) Pulse Ox 93 93 96 97 O2 Delivery BiPAP/CPAP 10/01/18 10/01/18 10/01/18 10/01/18 00:00 00:00 01:00 02:00 Temp 98.5 98.5 Pulse 83 72 80 Resp 24 24 21 B/P (MAP) 135/61 (85) 166/87 (113) 188/82 (117) Pulse Ox 95 95 90 O2 Delivery Bi-pap 10/01/18 10/01/18 10/01/18 10/01/18 02:56 03:00 03:36 04:00 Temp 98.4 98.4 Pulse 76 74 Resp 23 24 B/P (MAP) 179/77 (111) 151/91 (111) Pulse Ox 95 98 95 O2 Delivery BiPAP/CPAP BiPAP/CPAP Bi-pap BiPAP/CPAP 10/01/18 10/01/18 10/01/18 10/01/18 05:00 05:19 06:00 08:00 Pulse 76 68 70 Resp 23 23 23 B/P (MAP) 157/90 (112) 162/80 (107) 154/100 (118) Pulse Ox 95 96 94 94 O2 Delivery BiPAP/CPAP BiPAP/CPAP BiPAP/CPAP BiPAP/CPAP 10/01/18 10/01/18 10/01/18 10/01/18 08:00 08:00 08:06 09:00 Pulse 72 Resp 23 B/P (MAP) 155/99 (117) Pulse Ox 93 94 O2 Delivery Bi-pap BiPAP/CPAP Venturi Mask O2 Flow Rate 4.0 10/01/18 10/01/18 10/01/1810/01/19 10:00 11:00 12:08 16:00 Temp 98.4 98.4 Pulse 78 68 68 Resp 23 23 B/P (MAP) 145/90 (108) 140/82 (101) 166/82 (110) Pulse Ox 94 94 94 O2 Delivery Venturi Mask Venturi Mask O2 Flow Rate 4.0 4.0 10/01/18 10/01/18 10/01/18 10/01/18 16:03 17:56 19:00 20:00 Temp 98.3 98.3 Pulse 68 116 117 Resp 16 23 B/P (MAP) 190/88 180/99 (126) 158/88 (111) Pulse Ox 95 97 O2 Delivery Nasal Cannula BiPAP/CPAP O2 Flow Rate 4.0 3.0 Intake and Output 09/30/18 09/30/18 10/01/18 15:00 23:00 07:00 Intake Total 120 ml 1325 ml 1000 ml Output Total 405 ml 350 ml 363 ml Balance -285 ml 975 ml 637 ml SHIRA BONNER MD Oct 01, 2018 21:01
[2018-10-01 22:08] LABS: HEMOGLOBIN A1C 7.8 % (4.8-5.6)
[2018-10-02 03:28] VITALS: BP 160/97
[2018-10-02] MEDS: MEROPENEM 1 GM in IV NORMAL SALINE 100ML 100 ML IV SCH (06:13)
[2018-10-02 07:00] VITALS: BP 162/102
[2018-10-02] MEDS: FUROSEMIDE 40 MG/4 ML VIAL. IVP SCH (09:04)
[2018-10-02] MEDS: LACTOBACILLUS RHAMNOSUS GG 1 CAPSULE. PO SCH ×2 (09:04→21:00)
--- NOTE | 2018-10-02 09:21 | PDOC ---
PULMONARY PROGRESS NOTES Subjective OFF BIPAP FEELS BETTER Vitals Vital Signs Date Time Temp Pulse Resp B/P (MAP) Pulse Ox O2 Delivery O2 Flow Rate FiO2 10/02/18 07:00 98.1 72 18 162/102 (122) 98 BiPAP/CPAP 98.1 10/02/18 04:00 4.0 General: Alert, No acute distress HEENT: Other Lungs: Crackles Cardiovascular: S1, S2 Abdomen: Soft, Non-tender, Other (OBESE) Extremities: Other (OBESE) Labs Laboratory Tests Test 09/30/18 09:30 09/30/18 11:15 09/30/18 12:50 09/30/18 18:15 O2 Saturation 95 % (92-99) 91 % (92-99) Arterial Blood pH 7.12 (7.35-7.45) 7.24 (7.35-7.45) Arterial Blood pCO2 at Patient Temp 133 mmHg (35-46) 88 mmHg (35-46) Arterial Blood pO2 at Patient Temp 94 mmHg (75-108) 66 mmHg (75-108) Arterial Blood HCO3 42 mmol/L (21-28) 37 mmol/L (21-28) Arterial Blood Base Excess 7 mmol/L (-3-3) 6 mmol/L (-3-3) FiO2 60 35 Erythrocyte Sedimentation Rate 8 (0-15) Potassium Level 5.2 mmol/L (3.5-5.1) Test 10/01/18 04:45 10/01/18 08:15 White Blood Count 10.6 x10^3/uL (4.0-11.0) Red Blood Count 5.22 x10^6/uL (4.30-5.70) Hemoglobin 12.8 g/dL (13.0-17.5) Hematocrit 41.9 % (39.0-53.0) Mean Corpuscular Volume 80 fL (79-100) Mean Corpuscular Hemoglobin 25 pg (25-35) Mean Corpuscular Hemoglobin Concent 31 g/dL (31-37) Red Cell Distribution Width 18.4 % (11.5-14.5) Platelet Count 188 x10^3/uL (140-400) Neutrophils (%) (Auto) 65 % (31-73) Lymphocytes (%) (Auto) 24 % (24-48) Monocytes (%) (Auto) 10 % (0-9) Eosinophils (%) (Auto) 1 % (0-3) Basophils (%) (Auto) 1 % (0-3) Neutrophils # (Auto) 6.9 x10^3uL (1.8-7.7) Lymphocytes # (Auto) 2.5 x10^3/uL (1.0-4.8) Monocytes # (Auto) 1.0 x10^3/uL (0.0-1.1) Eosinophils # (Auto) 0.1 x10^3/uL (0.0-0.7) Basophils # (Auto) 0.1 x10^3/uL (0.0-0.2) Sodium Level 139 mmol/L (136-145) Potassium Level 4.6 mmol/L (3.5-5.1) Chloride Level 99 mmol/L (98-107) Carbon Dioxide Level 37 mmol/L (21-32) Anion Gap 3 (6-14) Blood Urea Nitrogen 28 mg/dL (8-26) Creatinine 1.8 mg/dL (0.7-1.3) Estimated GFR (Cockcroft-Gault) 40.8 Glucose Level 122 mg/dL (70-99) Hemoglobin A1c 7.8 % (4.8-5.6) Calcium Level 8.9 mg/dL (8.5-10.1) O2 Saturation 93 % (92-99) Arterial Blood pH 7.37 (7.35-7.45) Arterial Blood pCO2 at Patient Temp 64 mmHg (35-46) Arterial Blood pO2 at Patient Temp 69 mmHg (75-108) Arterial Blood HCO3 36 mmol/L (21-28) Arterial Blood Base Excess 8 mmol/L (-3-3) FiO2 35 Medications Active Scripts Medications Dose Route/Sig Max Daily Dose Days Date Category [No home meds] 09/29/18 Reported Impression . IMPRESSION: 1. [id number] hypoxemic hypercapnic respiratory failure, multifactorial. 2. Abnormal x-ray, possible pneumonia Gram-negative, possible Gram-positive. 3. Scrotal cellulitis. 4. Metabolic toxic encephalopathy, present upon admission. 5. Morbid obesity, body mass index of 72. 6. Acute kidney injury. 7. Chronic stasis dermatitis. 8. Suspect obstructive sleep apnea, obesity hypoventilation syndrome. 9. Tobacco dependence. Plan . PRN AND QHS BIPAP 1. Continue current IV antibiotics, should cover pathogens in the lungs. 2. BiPAP. The patient has improved. Repeat arterial blood gas pH of 7.24, PaCO2 of 88, pO2 of 66. 3. I spoke with RN. The patient will be given a break off of BiPAP to take in some liquids. 4. Follow Infectious Disease and Urology input. DAVID URBINA MD Oct 02, 2018 09:21
--- NOTE | 2018-10-02 09:54 | PDOC ---
Infectious Disease Note Subjective Subjective awake, says is feeling better ROS ROS no n/v/d/sob Vital Sign Vital Signs Vital Signs Date Time Temp Pulse Resp B/P (MAP) Pulse Ox O2 Delivery O2 Flow Rate FiO2 10/02/18 07:00 98.1 72 18 162/102 (122) 98 BiPAP/CPAP 98.1 10/02/18 04:00 4.0 Physical Exam PHYSICAL EXAM GENERAL: The patient is on BiPAP and unresponsive. HEENT: Pupils equally round, reactive. Oral cavity dry. LUNGS: Poor aeration. HEART: Distant heart tones. Regular. ABDOMEN: Morbidly obese, soft, no grimace or guarding to palpation. Bowel sounds present. GENITOURINARY: Scrotum is edematous, red. No open wound noted though unable to fully assess posteriorly. Buried phallus. EXTREMITIES: Chronic venous stasis dermatitis lower extremities bilaterally. No cyanosis. SKIN: Warm without generalized rash. He has multiple tattoos. He has yeast in skin folds including pannus and groin areas. NEUROLOGIC: Grimaces to deep sternal rub; otherwise, unresponsive. Labs Micro Microbiology 09/30/18 Blood Culture - Preliminary, Resulted NO GROWTH AFTER 1 DAY Objective Assessment 1. Scrotal cellulitis. 2. Candidal intertrigo. 3. Leukocytosis. 4. Metabolic encephalopathy. 5. Acute respiratory failure, now on BiPAP. 6. Acute kidney injury. 7. Questionable allergy/intolerance to ZOSYN. He apparently vomited during infusion. 8. Super morbid obesity, BMI 72. 9. Chronic stasis dermatitis. 10. Sleep apnea. 11. 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 Plan Plan of Care zyvox, meropenem and micafungin,,, change to po zyvox and augmentin Monitor labs/renal function closely Maintain aspiration precautions May need indwelling [place] Supportive care D/w nursing HEATHER WU MD Oct 02, 2018 09:54
[2018-10-02 11:00] VITALS: BP 191/105
[2018-10-02] MEDS: IV NORMAL SALINE 1000ML BAG 1,000 ML IV SCH (11:00)
[2018-10-02] MEDS: cloNIDine HCL 0.1 MG TABLET PO PRN (11:21)
--- NOTE | 2018-10-02 13:04 | PDOC ---
PROGRESS NOTES Chief Complaint Chief Complaint Bilateral scrotal cellulitis, hydroceles Sepsis, clarissa intertriginous areas Morbid obesity BMI 72 Acute hypoxic and hypercapnic resp failure with COPD exacerbation,obesity related hypoventilation on NIPPV Hx of group C strep sepsis in June 2018 Chronic venous dermatitis History of MRSA Previous smoker ADINA - ATN with a combination of Lasix Vanco and Zosyn in his past admissions Encephalopathy - metabolic - sec to Co2 narcosis? - he can be sleepy -WOF further inc narcs History of Present Illness History of Present Illness Transferred to ICU on BiPAP, wore it overnight, transferred back out yesterday He is more alert this morning. Asking for food. Diuresing very well now that acuña is in place Plan Maintain Acuña catheter placed by urology Follow ID recs regarding antibiotics - can change to oral Add ammonia lactate to legs Add OT for lymphedema PT OT when able BiPAP per pulmonary He essentially needs to lose weight or else his problems will never get better He needs to see a bariatric specialist to see if that can help Repeat Renal panel daily - Monitor that creatinine -he does have history of AK I ATN which gets worse after we gave Lasix and vancomycin for his medical issues Cont CVC today, needs BIPAP bedside at all times Vitals Vitals Vital Signs Date Time Temp Pulse Resp B/P (MAP) Pulse Ox O2 Delivery O2 Flow Rate FiO2 10/02/18 11:21 100 191/105 10/02/18 11:00 97.8 16 90 Nasal Cannula 3.0 97.8 Physical Exam Physical Exam GENERAL: The patient is on BiPAP and unresponsive. HEENT: Pupils equally round, reactive. Oral cavity dry. LUNGS: Poor aeration. HEART: Distant heart tones. Regular. ABDOMEN: Morbidly obese, soft, no grimace or guarding to palpation. Bowel sounds present. GENITOURINARY: Scrotum is edematous, red. No open wound noted though unable to fully assess posteriorly. Buried phallus. EXTREMITIES: Chronic venous stasis dermatitis lower extremities bilaterally. No cyanosis. SKIN: Warm without generalized rash. He has multiple tattoos. He has yeast in skin folds including pannus and groin areas. NEUROLOGIC: Grimaces to deep sternal rub; otherwise, unresponsive. General: Alert, Oriented X3, mild distress, Other (on BiPAP) Heart: Regular rate, No murmurs Lungs: Crackles Abdomen: Soft Extremities: Other (1+ edema, discoloration and chronic changes) Skin: Other (severe redness moisture intertriginous areas-apply nystatin powder or cream) Assessment and Plan Assessmemt and Plan Problems Medical Problems: (1) Obesity with serious comorbidity Status: Acute Comment Review of Relevant I have reviewed the following items adolfo (where applicable) has been applied. Labs Laboratory Tests Test 09/30/18 18:15 10/01/18 04:45 10/01/18 08:15 Potassium Level 5.2 mmol/L (3.5-5.1) 4.6 mmol/L (3.5-5.1) White Blood Count 10.6 x10^3/uL (4.0-11.0) Red Blood Count 5.22 x10^6/uL (4.30-5.70) Hemoglobin 12.8 g/dL (13.0-17.5) Hematocrit 41.9 % (39.0-53.0) Mean Corpuscular Volume 80 fL (79-100) Mean Corpuscular Hemoglobin 25 pg (25-35) Mean Corpuscular Hemoglobin Concent 31 g/dL (31-37) Red Cell Distribution Width 18.4 % (11.5-14.5) Platelet Count 188 x10^3/uL (140-400) Neutrophils (%) (Auto) 65 % (31-73) Lymphocytes (%) (Auto) 24 % (24-48) Monocytes (%) (Auto) 10 % (0-9) Eosinophils (%) (Auto) 1 % (0-3) Basophils (%) (Auto) 1 % (0-3) Neutrophils # (Auto) 6.9 x10^3uL (1.8-7.7) Lymphocytes # (Auto) 2.5 x10^3/uL (1.0-4.8) Monocytes # (Auto) 1.0 x10^3/uL (0.0-1.1) Eosinophils # (Auto) 0.1 x10^3/uL (0.0-0.7) Basophils # (Auto) 0.1 x10^3/uL (0.0-0.2) Sodium Level 139 mmol/L (136-145) Chloride Level 99 mmol/L (98-107) Carbon Dioxide Level 37 mmol/L (21-32) Anion Gap 3 (6-14) Blood Urea Nitrogen 28 mg/dL (8-26) Creatinine 1.8 mg/dL (0.7-1.3) Estimated GFR (Cockcroft-Gault) 40.8 Glucose Level 122 mg/dL (70-99) Hemoglobin A1c 7.8 % (4.8-5.6) Calcium Level 8.9 mg/dL (8.5-10.1) O2 Saturation 93 % (92-99) Arterial Blood pH 7.37 (7.35-7.45) Arterial Blood pCO2 at Patient Temp 64 mmHg (35-46) Arterial Blood pO2 at Patient Temp 69 mmHg (75-108) Arterial Blood HCO3 36 mmol/L (21-28) Arterial Blood Base Excess 8 mmol/L (-3-3) FiO2 35 Microbiology 09/30/18 Blood Culture - Preliminary, Resulted NO GROWTH AFTER 2 DAYS Medications Current Medications Sodium Chloride 1,000 ml @ 2,190 mls/hr Q28M IV Last administered on 09/29/18at 17:52; Start 09/29/18 at 15:54; Stop 09/29/18 at 16:54; Status DC Piperacillin Sod/ Tazobactam Sod 4.5 gm/Sodium Chloride 100 ml @ 200 mls/hr 1X ONCE IV Last administered on 09/29/18at 16:51; Start 09/29/18 at 16:00; Stop 09/29/18 at 16:29; Status DC Vancomycin HCl (Vanco Per Pharmacy) 1 each 1X ONCE MC ; Start 09/29/18 at 16:00; Stop 09/29/18 at 18:10; Status DC Fentanyl Citrate (Fentanyl 2ml Vial) 50 mcg PRN Q15MIN PRN IV PAIN GREATER THAN 3/10 Last administered on 09/29/18at 17:51; Start 09/29/18 at 16:00; Stop 09/29/18 at 22:00; Status DC Vancomycin HCl 2 gm/Sodium Chloride 500 ml @ 250 mls/hr 1X ONCE IV Last administered on 09/29/18at 17:10; Start 09/29/18 at 16:15; Stop 09/29/18 at 18:14; Status DC Ondansetron HCl (Zofran) 4 mg STK-MED ONCE .ROUTE ; Start 09/29/18 at 17:00; Stop 09/29/18 at 17:01; Status DC Ondansetron HCl (Zofran) 4 mg PRN Q8HRS PRN IV NAUSEA/VOMITING; Start 09/29/18 at 19:00; Stop 09/30/18 at 08:49; Status DC Fentanyl Citrate (Fentanyl 2ml Vial) 50 mcg PRN Q1HR PRN IV PAIN; Start 09/29/18 at 19:00; Stop 09/30/18 at 18:59; Status DC Acetaminophen (Tylenol) 650 mg PRN Q4HRS PRN PO FEVER; Start 09/29/18 at 19:00; Stop 09/30/18 at 18:59; Status DC Clonidine HCl (Catapres) 0.1 mg PRN TID PRN PO HYPERTENSION, SEE COMMENTS Last administered on 10/02/18at 11:21; Start 09/29/18 at 19:00; Stop 10/02/18 at 12:24; Status DC Ceftriaxone Sodium (Rocephin) 1 gm Q24H IVP Last administered on 09/29/18at 20:47; Start 09/29/18 at 21:00; Stop 09/30/18 at 08:02; Status DC Sodium Chloride 1,000 ml @ 50 mls/hr Q20H IV Last administered on 09/30/18at 19:33; Start 09/29/18 at 23:00 Vancomycin HCl (Vanco Per Pharmacy) 1 each PRN DAILY PRN MC SEE COMMENTS Last administered on 09/30/18at 00:29; Start 09/29/18 at 21:00; Stop 09/30/18 at 08:02; Status DC Vancomycin HCl 2 gm/Sodium Chloride 500 ml @ 250 mls/hr Q12H IV Last administered on 09/30/18at 05:05; Start 09/30/18 at 05:00; Stop 09/30/18 at 08:02; Status DC Vancomycin HCl (Vancomycin Trough Level) 1 each 1X ONCE MC ; Start 10/01/18 at 04:30; Stop 10/01/18 at 04:30; Status DC Linezolid/Dextrose 300 ml @ 300 mls/hr Q12HR IV Last administered on 10/02/18at 09:05; Start 09/30/18 at 09:00; Stop 10/02/18 at 09:56; Status DC Meropenem 1 gm/ Sodium Chloride 100 ml @ 200 mls/hr Q8HRS IV Last administered on 10/02/18at 06:13; Start 09/30/18 at 09:00; Stop 10/02/18 at 09:56; Status DC Micafungin Sodium 100 mg/Dextrose 100 ml @ 100 mls/hr Q24H IV Last administered on 10/01/18at 10:24; Start 09/30/18 at 10:00; Stop 10/02/18 at 09 :56; Status DC Ondansetron HCl (Zofran) 4 mg PRN Q6HRS PRN IV NAUSEA/VOMITING; Start 09/30/18 at 09:00 Sodium Polystyrene Sulfonate (Kayexalate) 15 gm 1X ONCE PO ; Start 09/30/18 at 09:00; Stop 09/30/18 at 09:01; Status DC Acetaminophen/ Hydrocodone Bitart (Lortab 5/325) 1 tab PRN Q4HRS PRN PO PAIN; Start 09/30/18 at 10:15 Lactobacillus Rhamnosus (Culturelle) 1 cap BID PO Last administered on 10/02/18at 09:04; Start 09/30/18 at 21:00 Sodium Polystyrene Sulfonate (Kayexalate) 15 gm 1X ONCE PO Last administered on 09/30/18at 18:38; Start 09/30/18 at 15:15; Stop 09/30/18 at 15:16; Status DC Furosemide (Lasix) 40 mg DAILY IVP Last administered on 10/02/18at 09:04; Start 10/01/18 at 09:00 Vitamin A/Vitamin D (Vitamin A & D Ointment) 1 jason PRN Q1HR PRN TP SKIN PROTECTION; Start 10/01/18 at 16:30 Albumin Human 100 ml @ 100 mls/hr PRN DAILY PRN IV htn Last administered on 10/01/18at 17:02; Start 10/01/18 at 16:45 Linezolid (Zyvox) 600 mg BID PO ; Start 10/02/18 at 21:00 Amoxicillin/ Clavulanate Potassium (Augmentin 875/ 125mg) 1 tab BID PO ; Start 10/02/18 at 21:00 Carvedilol (Coreg) 6.25 mg BIDWMEALS PO ; Start 10/02/18 at 13:00 Labetalol HCl (Normodyne Iv Push) 20 mg PRN Q2HR PRN IVP HYPERTENSION, SEE COMMENTS; Start 10/02/18 at 12:30 Active Scripts Active Reported [No home meds] Vitals/I & O Vital Sign - Last 24 Hours 10/01/18 10/01/18 10/01/18 10/01/18 16:00 16:03 17:56 19:00 Temp 98.4 98.3 98.4 98.3 Pulse 68 68 116 Resp 16 B/P (MAP) 166/82 (110) 190/88 180/99 (126) Pulse Ox 94 95 O2 Delivery Nasal Cannula O2 Flow Rate 4.0 4.0 3.0 10/01/18 10/01/18 10/01/18 10/01/18 20:00 20:00 20:00 21:00 Pulse 117 114 Resp 23 23 B/P (MAP) 158/88 (111) 180/102 (128) Pulse Ox 97 95 O2 Delivery Bi-pap BiPAP/CPAP BiPAP/CPAP O2 Flow Rate 4.0 10/01/18 10/01/18 10/01/18 10/01/18 21:00 21:26 22:13 23:25 Temp 98.2 98.2 Pulse 115 116 Resp 22 B/P (MAP) 202/112 170/99 (122) Pulse Ox 94 96 94 O2 Delivery BiPAP/CPAP BiPAP/CPAP BiPAP/CPAP 10/02/18 10/02/18 10/02/18 10/02/18 00:00 01:25 03:23 03:28 Temp 97.9 97.9 Pulse 74 Resp 24 B/P (MAP) 160/97 (118) Pulse Ox 95 O2 Delivery BiPAP/CPAP BiPAP/CPAP BiPAP/CPAP O2 Flow Rate 4.0 10/02/18 10/02/18 10/02/18 10/02/18 04:00 07:00 11:00 11:21 Temp 98.1 97.8 98.1 97.8 Pulse 72 113 100 Resp 18 16 B/P (MAP) 162/102 (122) 191/105 (133) 191/105 Pulse Ox 98 90 O2 Delivery BiPAP/CPAP Nasal Cannula O2 Flow Rate 4.0 3.0 Intake and Output 4/10/01/18 10/02/18 15:00 23:00 07:00 Intake Total 120 ml 300 ml Output Total 115 ml 725 ml 775 ml Balance -115 ml -605 ml -475 ml FRANCISCO JAVIER NICHOLSON MD Oct 02, 2018 13:04
[2018-10-02] MEDS: AMMONIUM LACTATE 12% TOPICAL LOTION 226GM BOTTLE. TP SCH ×2 (14:26→21:01)
[2018-10-02] MEDS: CARVEDILOL 6.25 MG TABLET. PO SCH ×2 (14:29→18:14)
[2018-10-02 15:00] VITALS: BP 217/158
[2018-10-02] MEDS: LABETALOL 20 MG/4 ML DISP.SYRIN. IVP PRN ×2 (15:17→18:44)
--- NOTE | 2018-10-02 16:11 | PDOC ---
WESLEY LANDRY TEST CLERK 10/02/18 1611: CARDIO Progress Notes Date and Time Date of Service 10/02/2018 Time of Evaluation 1210 Subjective Subjective: No Chest Pain, No shortness of breath, No Palpitations Vitals Vitals Vital Signs Date Time Temp Pulse Resp B/P (MAP) Pulse Ox O2 Delivery O2 Flow Rate FiO2 10/02/18 15:00 97.7 110 18 217/158 (177) 96 Room Air 97.7 10/02/18 11:00 3.0 Weight Weight [ ] Input and Output Intake and Output Intake and Output 10/02/18 07:00 Intake Total 420 ml Output Total 1615 ml Balance -1195 ml Intake Oral 420 ml Output Urine Total 1615 ml # Bowel Movements 2 Microbiology Micro Microbiology 09/30/18 Blood Culture - Preliminary, Resulted NO GROWTH AFTER 2 DAYS Physical Exam HEENT: Neck Supple W Full Motion Chest: Symmetric LUNGS: Other (diminished) Heart: RRR (SR) Abdomen: Soft N/T, Other (obese) Extremities: No Calf Tenderness, Other (chronic lyphedema, venous dermatitis) Neurology: alert, oriented, follow commands Assessment Assessment 1. Acute on chronic diastolic heart failure: appears compensated 2. Scrotal edema/cellulitis: Treat per ID. Urology following. 3. Morbid obesity with highly suspected JEANNE 4. PAFIB: potentially risk is high issues above. 5. CKD vs ADINA 6. Accelerated HTN Recommendations 1. AFIB burden to be determined as an outpt via event monitor. Start on ECASA 325 mg 2. Hold any ARB/ACEi for now. Lasix therapy, monitor renal function. 3. Start on coreg and norvasc. Labetolol IV PRN. Will place on nitrates if BP re kannan labile and uptitrate coreg. 4. Bipap PRN 5. Would need bariatric referral SHIRA BONNER MD 10/03/18 0901: CARDIO Progress Notes Assessment Assessment Patient seen and examined 10/02/18. Agree with OVERHEAD FOREMAN's assessment and plan. Acute on chronic diastolic heart failure better compensated. Agree with event monitor as an outpatient. Continue current treatment for scrotal cellulitis per ID team. WESLEY LANDRY APRN Oct 02, 2018 16:11 SHIRA BONNER MD October 03, 2018 09:01
[2018-10-02] MEDS ORDERED: ASPIRIN ENTERIC COATED 325 MG TABLET.DR. PO ONE (16:15)
[2018-10-02] MEDS ORDERED: amLODIPine BESYLATE 5 MG TABLET PO ONE (16:15)
[2018-10-02 19:37] VITALS: BP 199/115
[2018-10-02] MEDS: AMOXICILLIN/K CLAV 875/125MG TABLET. PO SCH (21:00)
[2018-10-02] MEDS: LINEZOLID 600 MG TABLET PO SCH (21:00)
[2018-10-02 23:57] VITALS: BP 192/107
[2018-10-03 03:39] VITALS: BP 140/82
[2018-10-03 05:33] LABS: ALBUMIN 2.3 g/dL (3.4-5.0); CALCIUM 9.1 mg/dL (8.5-10.1); CREATININE 1.4 mg/dL (0.7-1.3); GFR 54.6; PHOSPHORUS 3.8 mg/dL (2.6-4.7); POTASSIUM 4.2 mmol/L (3.5-5.1)
[2018-10-03 07:00] VITALS: BP 176/101
[2018-10-03] MEDS: IV NORMAL SALINE 1000ML BAG 1,000 ML IV SCH (07:00)
[2018-10-03] MEDS ORDERED: amLODIPine BESYLATE 10 MG TABLET ONE (07:24)
[2018-10-03] MEDS: amLODIPine BESYLATE 10 MG TABLET PO SCH (07:29)
[2018-10-03] MEDS: ASPIRIN ENTERIC COATED 325 MG TABLET.DR. PO SCH (07:29)
[2018-10-03] MEDS: FUROSEMIDE 40 MG/4 ML VIAL. IVP SCH ×2 (07:30→14:58)
[2018-10-03] MEDS: CARVEDILOL 6.25 MG TABLET. PO SCH (07:30)
[2018-10-03] MEDS ORDERED: CARVEDILOL 12.5 MG TABLET. PO SCH (08:00)
[2018-10-03] MEDS ORDERED: CARVEDILOL 6.25 MG TABLET. PO ONE (09:30)
[2018-10-03] MEDS: AMOXICILLIN/K CLAV 875/125MG TABLET. PO SCH ×2 (09:43→20:19)
[2018-10-03] MEDS: LINEZOLID 600 MG TABLET PO SCH ×2 (09:43→20:19)
[2018-10-03] MEDS: LACTOBACILLUS RHAMNOSUS GG 1 CAPSULE. PO SCH ×2 (09:43→20:19)
[2018-10-03] MEDS: AMMONIUM LACTATE 12% TOPICAL LOTION 226GM BOTTLE. TP SCH ×2 (09:45→20:19)
--- NOTE | 2018-10-03 09:58 | PDOC ---
Infectious Disease Note Subjective Subjective awake, says is feeling better, ready to go home ROS ROS no n/v/d/ Vital Sign Vital Signs Vital Signs Date Time Temp Pulse Resp B/P (MAP) Pulse Ox O2 Delivery O2 Flow Rate FiO2 10/03/18 09:43 109 156/96 10/03/18 07:43 97 Nasal Cannula 3.0 10/03/18 07:00 98.4 20 98.4 Physical Exam PHYSICAL EXAM GENERAL: The patient is on BiPAP and unresponsive. HEENT: Pupils equally round, reactive. Oral cavity dry. LUNGS: Poor aeration. HEART: Distant heart tones. Regular. ABDOMEN: Morbidly obese, soft, no grimace or guarding to palpation. Bowel sounds present. GENITOURINARY: Scrotum is edematous, red. No open wound noted though unable to fully assess posteriorly. Buried phallus. EXTREMITIES: Chronic venous stasis dermatitis lower extremities bilaterally. No cyanosis. SKIN: Warm without generalized rash. He has multiple tattoos. He has yeast in skin folds including pannus and groin areas. NEUROLOGIC: Grimaces to deep sternal rub; otherwise, unresponsive. Labs Lab Laboratory Tests Test 10/03/18 04:25 Sodium Level 143 mmol/L (136-145) Potassium Level 4.2 mmol/L (3.5-5.1) Chloride Level 102 mmol/L (98-107) Carbon Dioxide Level 39 mmol/L (21-32) Anion Gap 2 (6-14) Blood Urea Nitrogen 21 mg/dL (8-26) Creatinine 1.4 mg/dL (0.7-1.3) Estimated GFR (Cockcroft-Gault) 54.6 Glucose Level 139 mg/dL (70-99) Calcium Level 9.1 mg/dL (8.5-10.1) Phosphorus Level 3.8 mg/dL (2.6-4.7) Albumin 2.3 g/dL (3.4-5.0) Micro Microbiology 09/30/18 Blood Culture - Preliminary, Resulted NO GROWTH AFTER 1 DAY Objective Assessment 1. Scrotal cellulitis. 2. Candidal intertrigo. 3. Leukocytosis. 4. Metabolic encephalopathy. 5. Acute respiratory failure, now on BiPAP. 6. Acute kidney injury. 7. Questionable allergy/intolerance to ZOSYN. He apparently vomited during infusion. 8. Super morbid obesity, BMI 72. 9. Chronic stasis dermatitis. 10. Sleep apnea. 11. 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 Plan Plan of Care po zyvox and augmentin Monitor labs/renal function closely Maintain aspiration precautions May need indwelling [place] Supportive care D/w nursing ok to d/c on po doxy and augmentin HEATHER WU MD October 03, 2018 09:58
--- NOTE | 2018-10-03 10:00 | PDOC ---
ASIF QUINTANILLA [employer] INS[employer] 10/03/18 1000: SUBJECTIVE Subjective Pt doing well today, no pain in scrotum. Has been walking around and would like to get catheter removed if possible. OBJECTIVE Objective Physical Exam: General appearance: Alert and Oriented Head: Normocephalic, without obvious abnormality Eyes: conjunctivae/corneas clear. PERRL, EOM's intact. Fundi benign Lungs: Regular respirations, non labored breathing Abdomen: soft, non-tender, obese. No masses, no organomegaly Pelvic: + scrotal swelling with Acuña catheter in place draining clear yellow urine. Buried phallus. Vital Signs Vital Signs Date Time Temp Pulse Resp B/P (MAP) Pulse Ox O2 Delivery O2 Flow Rate FiO2 10/03/18 09:43 109 156/96 10/03/18 07:43 97 Nasal Cannula 3.0 10/03/18 07:30 108 176/101 10/03/18 07:29 113 176/101 10/03/18 07:00 98.4 106 20 176/101 (126) 97 BiPAP/CPAP 98.4 10/03/18 03:39 97.9 72 24 140/82 (101) 92 BiPAP/CPAP 97.9 10/03/18 03:22 BiPAP/CPAP 10/03/18 01:03 BiPAP/CPAP 10/02/18 23:57 98.0 102 24 192/107 (135) 96 BiPAP/CPAP 98.0 10/02/18 22:35 BiPAP/CPAP 10/02/18 20:00 3.0 10/02/18 20:00 Bi-pap 3.0 10/02/18 19:37 97.8 106 20 199/115 (143) 96 Nasal Cannula 3.0 97.8 10/02/18 18:44 105 208/116 10/02/18 18:14 106 196/114 10/02/18 17:00 110 206/108 10/02/18 15:17 110 217/158 10/02/18 15:00 97.7 110 18 217/158 (177) 96 Room Air 97.7 10/02/18 14:29 107 230/102 10/02/18 11:21 100 191/105 10/02/18 11:00 97.8 113 16 191/105 (133) 90 Nasal Cannula 3.0 97.8 I & O Intake and Output 10/03/18 06:59 Intake Total 1160 ml Output Total 6400 ml Balance -5240 ml Intake Oral 1160 ml Output Urine Total 6400 ml # Voids 3 # Bowel Movements 2 PHYSICAL EXAM Physical Exam Physical Exam: General appearance: Alert and Oriented Head: Normocephalic, without obvious abnormality Eyes: conjunctivae/corneas clear. PERRL, EOM's intact. Fundi benign Lungs: Regular respirations, non labored breathing Abdomen: soft, non-tender, obese. No masses, no organomegaly Pelvic: + scrotal swelling with Acuña catheter in place draining clear yellow urine. Buried phallus. ASSESSMENT/PLAN Assessment/Plan For Scrotal edema continue scrotal elevation and diuresis if possible. Continue antibiotics per ID. Nursing to maintain acuña catheter for today. Orders written to remove tomorrow am at 0600. Will re-assess voiding later that am. Encouraged weight loss for prevention of this condition. Problems: (1) Cellulitis of scrotum COMMENT Lab Laboratory Tests Test 10/03/18 04:25 Sodium Level 143 mmol/L (136-145) Potassium Level 4.2 mmol/L (3.5-5.1) Chloride Level 102 mmol/L (98-107) Carbon Dioxide Level 39 mmol/L (21-32) Anion Gap 2 (6-14) Blood Urea Nitrogen 21 mg/dL (8-26) Creatinine 1.4 mg/dL (0.7-1.3) Estimated GFR (Cockcroft-Gault) 54.6 Glucose Level 139 mg/dL (70-99) Calcium Level 9.1 mg/dL (8.5-10.1) Phosphorus Level 3.8 mg/dL (2.6-4.7) Albumin 2.3 g/dL (3.4-5.0) MARY JANE NORMAN MD 10/04/18 1551: ASSESSMENT/PLAN Assessment/Plan Agree with assessment and plan. ASIF QUINTANILLA APRN October 03, 2018 10:00 MARY JANE NORMAN MD October 04, 2018 15:51
[2018-10-03 11:00] VITALS: BP 108/64
--- NOTE | 2018-10-03 12:35 | PDOC ---
PROGRESS NOTES Chief Complaint Chief Complaint Bilateral scrotal cellulitis, hydroceles Sepsis, clarissa intertriginous areas Morbid obesity BMI 72 Acute hypoxic and hypercapnic resp failure with COPD exacerbation,obesity related hypoventilation on NIPPV Hx of group C strep sepsis in June 2018 Chronic venous dermatitis History of MRSA Previous smoker ADINA - ATN with a combination of Lasix Vanco and Zosyn in his past admissions Encephalopathy - metabolic - sec to Co2 narcosis? - he can be sleepy -WOF further inc narcs History of Present Illness History of Present Illness Transferred to ICU on BiPAP, wore it overnight, transferred back out yesterday He is more alert this morning. Asking for food. Diuresing very well now that acuña is in place. BIPAP nightly prn. Urology requests acuña remain in place. He was able to ambulate with PT yesterday. Cr down to 1.4 today Plan Maintain Acuña catheter placed by urology Follow ID recs regarding antibiotics - can change to oral Add ammonia lactate to legs Add OT for lymphedema PT OT when able BiPAP per pulmonary He essentially needs to lose weight or else his problems will never get better He needs to see a bariatric specialist to see if that can help Repeat Renal panel daily - Monitor that creatinine -he does have history of AK I ATN which gets worse after we gave Lasix and vancomycin for his medical issues Cont CVC today, needs BIPAP bedside at all times Vitals Vitals Vital Signs Date Time Temp Pulse Resp B/P (MAP) Pulse Ox O2 Delivery O2 Flow Rate FiO2 10/03/18 11:00 97.8 80 20 108/64 (79) 94 Nasal Cannula 3.0 97.8 Physical Exam Physical Exam GENERAL: The patient is on BiPAP and unresponsive. HEENT: Pupils equally round, reactive. Oral cavity dry. LUNGS: Poor aeration. HEART: Distant heart tones. Regular. ABDOMEN: Morbidly obese, soft, no grimace or guarding to palpation. Bowel sounds present. GENITOURINARY: Scrotum is edematous, red. No open wound noted though unable to fully assess posteriorly. Buried phallus. EXTREMITIES: Chronic venous stasis dermatitis lower extremities bilaterally. No cyanosis. SKIN: Warm without generalized rash. He has multiple tattoos. He has yeast in skin folds including pannus and groin areas. NEUROLOGIC: Grimaces to deep sternal rub; otherwise, unresponsive. General: Alert, Oriented X3, mild distress, Other (on BiPAP) Heart: Regular rate, No murmurs Lungs: Crackles Abdomen: Soft Extremities: Other (1+ edema, discoloration and chronic changes) Skin: Other (severe redness moisture intertriginous areas-apply nystatin powder or cream) Labs LABS Laboratory Tests Test 10/03/18 04:25 Sodium Level 143 mmol/L (136-145) Potassium Level 4.2 mmol/L (3.5-5.1) Chloride Level 102 mmol/L (98-107) Carbon Dioxide Level 39 mmol/L (21-32) Anion Gap 2 (6-14) Blood Urea Nitrogen 21 mg/dL (8-26) Creatinine 1.4 mg/dL (0.7-1.3) Estimated GFR (Cockcroft-Gault) 54.6 Glucose Level 139 mg/dL (70-99) Calcium Level 9.1 mg/dL (8.5-10.1) Phosphorus Level 3.8 mg/dL (2.6-4.7) Albumin 2.3 g/dL (3.4-5.0) Assessment and Plan Assessmemt and Plan Problems Medical Problems: (1) Obesity with serious comorbidity Status: Acute Comment Review of Relevant I have reviewed the following items adolfo (where applicable) has been applied. Labs Laboratory Tests Test 10/03/18 04:25 Sodium Level 143 mmol/L (136-145) Potassium Level 4.2 mmol/L (3.5-5.1) Chloride Level 102 mmol/L (98-107) Carbon Dioxide Level 39 mmol/L (21-32) Anion Gap 2 (6-14) Blood Urea Nitrogen 21 mg/dL (8-26) Creatinine 1.4 mg/dL (0.7-1.3) Estimated GFR (Cockcroft-Gault) 54.6 Glucose Level 139 mg/dL (70-99) Calcium Level 9.1 mg/dL (8.5-10.1) Phosphorus Level 3.8 mg/dL (2.6-4.7) Albumin 2.3 g/dL (3.4-5.0) Laboratory Tests Test 10/03/18 04:25 Sodium Level 143 mmol/L (136-145) Potassium Level 4.2 mmol/L (3.5-5.1) Chloride Level 102 mmol/L (98-107) Carbon Dioxide Level 39 mmol/L (21-32) Anion Gap 2 (6-14) Blood Urea Nitrogen 21 mg/dL (8-26) Creatinine 1.4 mg/dL (0.7-1.3) Estimated GFR (Cockcroft-Gault) 54.6 Glucose Level 139 mg/dL (70-99) Calcium Level 9.1 mg/dL (8.5-10.1) Phosphorus Level 3.8 mg/dL (2.6-4.7) Albumin 2.3 g/dL (3.4-5.0) Microbiology 09/30/18 Blood Culture - Preliminary, Resulted NO GROWTH AFTER 3 DAYS Medications Current Medications Sodium Chloride 1,000 ml @ 2,190 mls/hr Q28M IV Last administered on 09/29/18at 17:52; Start 09/29/18 at 15:54; Stop 09/29/18 at 16:54; Status DC Piperacillin Sod/ Tazobactam Sod 4.5 gm/Sodium Chloride 100 ml @ 200 mls/hr 1X ONCE IV Last administered on 09/29/18at 16:51; Start 09/29/18 at 16:00; Stop 09/29/18 at 16:29; Status DC Vancomycin HCl (Vanco Per Pharmacy) 1 each 1X ONCE MC ; Start 09/29/18 at 16:00; Stop 09/29/18 at 18:10; Status DC Fentanyl Citrate (Fentanyl 2ml Vial) 50 mcg PRN Q15MIN PRN IV PAIN GREATER THAN 3/10 Last administered on 09/29/18at 17:51; Start 09/29/18 at 16:00; Stop 09/29/18 at 22:00; Status DC Vancomycin HCl 2 gm/Sodium Chloride 500 ml @ 250 mls/hr 1X ONCE IV Last administered on 09/29/18at 17:10; Start 09/29/18 at 16:15; Stop 09/29/18 at 18:14; Status DC Ondansetron HCl (Zofran) 4 mg STK-MED ONCE .ROUTE ; Start 09/29/18 at 17:00; Stop 09/29/18 at 17:01; Status DC Ondansetron HCl (Zofran) 4 mg PRN Q8HRS PRN IV NAUSEA/VOMITING; Start 09/29/18 at 19:00; Stop 09/30/18 at 08:49; Status DC Fentanyl Citrate (Fentanyl 2ml Vial) 50 mcg PRN Q1HR PRN IV PAIN; Start 09/29/18 at 19:00; Stop 09/30/18 at 18:59; Status DC Acetaminophen (Tylenol) 650 mg PRN Q4HRS PRN PO FEVER; Start 09/29/18 at 19:00; Stop 09/30/18 at 18:59; Status DC Clonidine HCl (Catapres) 0.1 mg PRN TID PRN PO HYPERTENSION, SEE COMMENTS Last administered on 10/02/18at 11:21; Start 09/29/18 at 19:00; Stop 10/02/18 at 12:24; Status DC Ceftriaxone Sodium (Rocephin) 1 gm Q24H IVP Last administered on 09/29/18at 20:47; Start 09/29/18 at 21:00; Stop 09/30/18 at 08:02; Status DC Sodium Chloride 1,000 ml @ 50 mls/hr Q20H IV Last administered on 09/30/18at 19:33; Start 09/29/18 at 23:00 Vancomycin HCl (Vanco Per Pharmacy) 1 each PRN DAILY PRN MC SEE COMMENTS Last administered on 09/30/18at 00:29; Start 09/29/18 at 21:00; Stop 09/30/18 at 08:02; Status DC Vancomycin HCl 2 gm/Sodium Chloride 500 ml @ 250 mls/hr Q12H IV Last administered on 09/30/18at 05:05; Start 09/30/18 at 05:00; Stop 09/30/18 at 08:02; Status DC Vancomycin HCl (Vancomycin Trough Level) 1 each 1X ONCE MC ; Start 10/01/18 at 04:30; Stop 10/01/18 at 04:30; Status DC Linezolid/Dextrose 300 ml @ 300 mls/hr Q12HR IV Last administered on 10/02/18at 09:05; Start 09/30/18 at 09:00; Stop 10/02/18 at 09:56; Status DC Meropenem 1 gm/ Sodium Chloride 100 ml @ 200 mls/hr Q8HRS IV Last administered on 10/02/18at 06:13; Start 09/30/18 at 09:00; Stop 10/02/18 at 09:56; Status DC Micafungin Sodium 100 mg/Dextrose 100 ml @ 100 mls/hr Q24H IV Last administered on 10/01/18at 10:24; Start 09/30/18 at 10:00; Stop 10/02/18 at 09:56; Status DC Ondansetron HCl (Zofran) 4 mg PRN Q6HRS PRN IV NAUSEA/VOMITING; Start 09/30/18 at 09:00 Sodium Polystyrene Sulfonate (Kayexalate) 15 gm 1X ONCE PO ; Start 09/30/18 at 09:00; Stop 09/30/18 at 09:01; Status DC Acetaminophen/ Hydrocodone Bitart (Lortab 5/325) 1 tab PRN Q4HRS PRN PO PAIN; Start 09/30/18 at 10:15 Lactobacillus Rhamnosus (Culturelle) 1 cap BID PO Last administered on 10/03/18 09:43; Start 09/30/18 at 21:00 Sodium Polystyrene Sulfonate (Kayexalate) 15 gm 1X ONCE PO Last administered on 09/30/18at 18:38; Start 09/30/18 at 15:15; Stop 09/30/18 at 15:16; Status DC Furosemide (Lasix) 40 mg DAILY IVP Last administered on 10/03/18at 07:30; Start 10/01/18 at 09:00 Vitamin A/Vitamin D (Vitamin A & D Ointment) 1 jason PRN Q1HR PRN TP SKIN PROTECTION; Start 10/01/18 at 16:30 Albumin Human 100 ml @ 100 mls/hr PRN DAILY PRN IV htn Last administered on 10/01/18at 17:02; Start 10/01/18 at 16:45 Linezolid (Zyvox) 600 mg BID PO Last administered on 10/03/18 09:43; Start 10/02/18 at 21:00 Amoxicillin/ Clavulanate Potassium (Augmentin 875/ 125mg) 1 tab BID PO Last administered on 10/03/18at 09:43; Start 10/02/18 at 21:00 Carvedilol (Coreg) 6.25 mg BIDWMEALS PO Last administered on 10/03/18at 07:30; Start 10/02/18 at 13:00; Stop 10/03/18 at 07:55; Status DC Labetalol HCl (Normodyne Iv Push) 20 mg PRN Q2HR PRN IVP HYPERTENSION, SEE COMMENTS Last administered on 10/02/18at 18:44; Start 10/02/18 at 12:30 Lactic Acid (Lac-Hydrin) 1 jason BID TP Last administered on 10/03/18at 09:45; Start 10/02/18 at 14:00 Aspirin (Ecotrin) 325 mg 1X ONCE PO Last administered on 10/02/18at 18:13; Start 10/02/18 at 16:15; Stop 10/02/18 at 16:33; Status DC Aspirin (Ecotrin) 325 mg DAILYWBKFT PO Last administered on 10/03/18at 07:29; Start 10/03/18 at 08:00 Amlodipine Besylate (Norvasc) 10 mg DAILY PO Last administered on 10/03/18at 07:29; Start 10/03/18 at 09:00 Amlodipine Besylate (Norvasc) 10 mg 1X ONCE PO Last administered on 10/02/18at 17:00; Start 10/02/18 at 16:15; Stop 10/02/18 at 16:33; Status DC Amlodipine Besylate (Norvasc) 10 mg STK-MED ONCE .ROUTE ; Start 10/03/18 at 07:24; Stop 10/03/18 at 07:25; Status DC Carvedilol (Coreg) 12.5 mg BIDWMEALS PO ; Start 10/03/18 at 08:00; Stop 10/03/18 at 09:04; Status DC Carvedilol (Coreg) 12.5 mg BIDWMEALS PO ; Start 10/03/18 at 17:00 Carvedilol (Coreg) 6.25 mg 1X ONCE PO Last administered on 10/03/18at 09:43; Start 10/03/18 at 09:30; Stop 10/03/18 at 09:31; Status DC Active Scripts Active Reported [No home meds] Vitals/I & O Vital Sign - Last 24 Hours 10/02/18 10/02/18 10/02/18 10/02/18 14:29 15:00 15:17 17:00 Temp 97.7 97.7 Pulse 107 110 110 110 Resp 18 B/P (MAP) 230/102 217/158 (177) 217/158 206/108 Pulse Ox 96 O2 Delivery Room Air 10/02/18 10/02/18 10/02/18 10/02/18 18:14 18:44 19:37 20:00 Temp 97.8 97.8 Pulse 106 105 106 Resp 20 B/P (MAP) 196/114 208/116 199/115 (143) Pulse Ox 96 O2 Delivery Nasal Cannula Bi-pap O2 Flow Rate 3.0 3.0 10/02/18 10/02/18 10/02/18 10/03/18 20:00 22:35 23:57 01:03 Temp 98.0 98.0 Pulse 102 Resp 24 B/P (MAP) 192/107 (135) Pulse Ox 96 O2 Delivery BiPAP/CPAP BiPAP/CPAP BiPAP/CPAP O2 Flow Rate 3.0 10/03/18 10/03/18 10/03/18 10/03/18 03:22 03:39 07:00 07:29 Temp 97.9 98.4 97.9 98.4 Pulse 72 106 113 Resp 24 20 B/P (MAP) 140/82 (101) 176/101 (126) 176/101 Pulse Ox 92 97 O2 Delivery BiPAP/CPAP BiPAP/CPAP BiPAP/CPAP 10/03/18 10/03/18 10/03/18 10/03/18 07:30 07:43 08:00 08:00 Pulse 108 B/P (MAP) 176/101 Pulse Ox 97 O2 Delivery Nasal Cannula Nasal Cannula O2 Flow Rate 3.0 3.0 3.0 10/03/18 10/03/18 09:43 11:00 Temp 97.8 97.8 Pulse 109 80 Resp 20 B/P (MAP) 156/96 108/64 (79) Pulse Ox 94 O2 Delivery Nasal Cannula O2 Flow Rate 3.0 l Intake and Output 10/02/18 10/02/18 10/03/18 15:00 23:00 07:00 Intake Total 360 ml 800 ml Output Total 5050 ml 1350 ml Balance -4690 ml -550 ml FRANCISCO JAVIER NICHOLSON MD October 03, 2018 12:35
[2018-10-03 15:00] VITALS: BP 172/99
[2018-10-03] MEDS: CARVEDILOL 12.5 MG TABLET. PO SCH (16:57)
[2018-10-03 19:20] VITALS: BP 191/118
[2018-10-03] MEDS: LABETALOL 20 MG/4 ML DISP.SYRIN. IVP PRN (21:01)
[2018-10-03 22:49] VITALS: BP 178/100
[2018-10-04] MEDS: IV NORMAL SALINE 1000ML BAG 1,000 ML IV SCH (03:00)
[2018-10-04 03:25] VITALS: BP 164/107
[2018-10-04 07:00] VITALS: BP 170/104
[2018-10-04] MEDS: LINEZOLID 600 MG TABLET PO SCH (08:57)
--- NOTE | 2018-10-04 08:57 | PDOC ---
Infectious Disease Note Subjective Subjective awake, says is feeling better, ready to go home Vital Sign Vital Signs Vital Signs Date Time Temp Pulse Resp B/P (MAP) Pulse Ox O2 Delivery O2 Flow Rate FiO2 10/04/18 07:55 3.0 10/04/18 07:00 98.1 67 20 170/104 (126) 96 BiPAP/CPAP 98.1 Physical Exam PHYSICAL EXAM GENERAL: The patient is on BiPAP and unresponsive. HEENT: Pupils equally round, reactive. Oral cavity dry. LUNGS: Poor aeration. HEART: Distant heart tones. Regular. ABDOMEN: Morbidly obese, soft, no grimace or guarding to palpation. Bowel sounds present. GENITOURINARY: Scrotum is edematous, red. No open wound noted though unable to fully assess posteriorly. Buried phallus. EXTREMITIES: Chronic venous stasis dermatitis lower extremities bilaterally. No cyanosis. SKIN: Warm without generalized rash. He has multiple tattoos. He has yeast in skin folds including pannus and groin areas. NEUROLOGIC: Grimaces to deep sternal rub; otherwise, unresponsive. Labs Micro Microbiology 09/30/18 Blood Culture - Preliminary, Resulted NO GROWTH AFTER 1 DAY Objective Assessment 1. Scrotal cellulitis. 2. Candidal intertrigo. 3. Leukocytosis. 4. Metabolic encephalopathy. 5. Acute respiratory failure, now on BiPAP. 6. Acute kidney injury. 7. Questionable allergy/intolerance to ZOSYN. He apparently vomited during infusion. 8. Super morbid obesity, BMI 72. 9. Chronic stasis dermatitis. 10. Sleep apnea. 11. 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 Plan Plan of Care po zyvox and augmentin Monitor labs/renal function closely Maintain aspiration precautions May need indwelling [place] Supportive care D/w nursing ok to d/c on po doxy and augmentin HEATHER WU MD October 04, 2018 08:56
[2018-10-04] MEDS: ASPIRIN ENTERIC COATED 325 MG TABLET.DR. PO SCH (08:58)
[2018-10-04] MEDS: LACTOBACILLUS RHAMNOSUS GG 1 CAPSULE. PO SCH (08:58)
[2018-10-04] MEDS: AMOXICILLIN/K CLAV 875/125MG TABLET. PO SCH (08:58)
[2018-10-04] MEDS: CARVEDILOL 12.5 MG TABLET. PO SCH (08:58)
[2018-10-04] MEDS: amLODIPine BESYLATE 10 MG TABLET PO SCH (08:58)
[2018-10-04] MEDS: FUROSEMIDE 40 MG/4 ML VIAL. IVP SCH ×2 (08:59→14:00)
[2018-10-04] MEDS: AMMONIUM LACTATE 12% TOPICAL LOTION 226GM BOTTLE. TP SCH (08:59)
[2018-10-04 09:35] LABS: ALBUMIN 2.4 g/dL (3.4-5.0); CALCIUM 9.2 mg/dL (8.5-10.1); CREATININE 1.1 mg/dL (0.7-1.3); GFR 72.1; PHOSPHORUS 3.3 mg/dL (2.6-4.7); POTASSIUM 4.4 mmol/L (3.5-5.1)
--- NOTE | 2018-10-04 10:07 | PDOC ---
PULMONARY PROGRESS NOTES Subjective OFF BIPAP FEELS BETTER Vitals Vital Signs Date Time Temp Pulse Resp B/P (MAP) Pulse Ox O2 Delivery O2 Flow Rate FiO2 10/04/18 08:58 67 170/104 10/04/18 08:00 Nasal Cannula 3.0 10/04/18 07:00 98.1 20 96 98.1 General: Alert, No acute distress HEENT: Other Lungs: Clear Cardiovascular: S1, S2 Abdomen: Soft, Non-tender, Other (OBESE) Extremities: Other (OBESE, TESTICULR EDEMA) Labs Laboratory Tests Test 10/03/18 04:25 10/04/18 08:25 Sodium Level 143 mmol/L (136-145) 138 mmol/L (136-145) Potassium Level 4.2 mmol/L (3.5-5.1) 4.4 mmol/L (3.5-5.1) Chloride Level 102 mmol/L (98-107) 98 mmol/L (98-107) Carbon Dioxide Level 39 mmol/L (21-32) 38 mmol/L (21-32) Anion Gap 2 (6-14) 2 (6-14) Blood Urea Nitrogen 21 mg/dL (8-26) 18 mg/dL (8-26) Creatinine 1.4 mg/dL (0.7-1.3) 1.1 mg/dL (0.7-1.3) Estimated GFR (Cockcroft-Gault) 54.6 72.1 Glucose Level 139 mg/dL (70-99) 120 mg/dL (70-99) Calcium Level 9.1 mg/dL (8.5-10.1) 9.2 mg/dL (8.5-10.1) Phosphorus Level 3.8 mg/dL (2.6-4.7) 3.3 mg/dL (2.6-4.7) Albumin 2.3 g/dL (3.4-5.0) 2.4 g/dL (3.4-5.0) Laboratory Tests Test 10/04/18 08:25 Sodium Level 138 mmol/L (136-145) Potassium Level 4.4 mmol/L (3.5-5.1) Chloride Level 98 mmol/L (98-107) Carbon Dioxide Level 38 mmol/L (21-32) Anion Gap 2 (6-14) Blood Urea Nitrogen 18 mg/dL (8-26) Creatinine 1.1 mg/dL (0.7-1.3) Estimated GFR (Cockcroft-Gault) 72.1 Glucose Level 120 mg/dL (70-99) Calcium Level 9.2 mg/dL (8.5-10.1) Phosphorus Level 3.3 mg/dL (2.6-4.7) Albumin 2.4 g/dL (3.4-5.0) Medications Active Scripts Medications Dose Route/Sig Max Daily Dose Days Date Category [No home meds] 09/29/18 Reported Impression . IMPRESSION: 1. [id number] hypoxemic hypercapnic respiratory failure, multifactorial. resolved 2. Abnormal x-ray, possible pneumonia Gram-negative, possible Gram-positive. 3. Scrotal cellulitis. 4. Metabolic toxic encephalopathy, present upon admission. 5. Morbid obesity, body mass index of 72. 6. Acute kidney injury. 7. Chronic stasis dermatitis. 8. Suspect obstructive sleep apnea, obesity hypoventilation syndrome. 9. Tobacco dependence. Plan . PRN AND QHS BIPAP 1. change to PO antibiotics, should cover pathogens in the lungs. 2. BiPAP. 3. I spoke with RN/ DR MAYO 4. OK with dc home today. Pt cannot afford O2 or CPAP. He uses his mothers O2. JAMES MONSON MD October 04, 2018 10:07
[2018-10-04 11:00] VITALS: BP 151/92
--- NOTE | 2018-10-04 11:26 | PDOC ---
CARDIO Progress Notes Date and Time Date of Service 10/04/18 Time of Evaluation 1120 Subjective Subjective: No Chest Pain, No shortness of breath, No Palpitations Vitals Vitals Vital Signs Date Time Temp Pulse Resp B/P (MAP) Pulse Ox O2 Delivery O2 Flow Rate FiO2 10/04/18 08:58 67 170/104 10/04/18 08:00 Nasal Cannula 3.0 10/04/18 07:00 98.1 20 96 98.1 Weight Weight [ ] Input and Output Intake and Output Intake and Output 10/04/18 06:59 Intake Total 600 ml Output Total 7450 ml Balance -6850 ml Intake Oral 600 ml Output Urine Total 7450 ml # Bowel Movements 1 Laboratory Labs Laboratory Tests Test 10/04/18 08:25 Sodium Level 138 mmol/L (136-145) Potassium Level 4.4 mmol/L (3.5-5.1) Chloride Level 98 mmol/L (98-107) Carbon Dioxide Level 38 mmol/L (21-32) Anion Gap 2 (6-14) Blood Urea Nitrogen 18 mg/dL (8-26) Creatinine 1.1 mg/dL (0.7-1.3) Estimated GFR (Cockcroft-Gault) 72.1 Glucose Level 120 mg/dL (70-99) Calcium Level 9.2 mg/dL (8.5-10.1) Phosphorus Level 3.3 mg/dL (2.6-4.7) Albumin 2.4 g/dL (3.4-5.0) Microbiology Micro Microbiology 09/30/18 Blood Culture - Preliminary, Resulted NO GROWTH AFTER 4 DAYS Physical Exam HEENT: Neck Supple W Full Motion Chest: Symmetric LUNGS: Other (diminished) Heart: RRR (SR) Abdomen: Soft N/T, Other (obese) Extremities: No Calf Tenderness, Other (chronic lyphedema, venous dermatitis) Neurology: alert, oriented, follow commands Assessment Assessment 1. Acute on chronic diastolic heart failure: appears compensated 2. Scrotal edema/cellulitis: Treat per ID. Urology following. 3. Morbid obesity with highly suspected JEANNE 4. PAFIB: potential risk is high issues above. 5. CKD vs ADINA 6. Accelerated HTN; labile Recommendations Outpatient event monitor to noted AFIB burden would be ideal, but patient will not likely be able to afford without insurance. Continue ASA continue Lasix therapy, monitor renal function. Continue coreg and norvasc. Labetolol IV PRN. Will place on nitrates if BP chanelle ins labile and uptitrate coreg. JULIANE GILLIAM APRN October 04, 2018 11:26
--- NOTE | 2018-10-04 11:57 | PDOC ---
ASIF QUINTANILLA ORE CHARGER 10/04/18 1157: SUBJECTIVE Subjective Catheter came out at 0600 this morning. I have voided three times, all really good amounts since the catheter came out. I would like to go home. OBJECTIVE Objective Physical Exam: General appearance: Alert and Oriented Head: Normocephalic, without obvious abnormality Eyes: conjunctivae/corneas clear. PERRL, EOM's intact. Fundi benign Lungs: Regular respirations, non labored breathing Abdomen: soft, non-tender, obese. No masses, no organomegaly Pelvic: + scrotal swelling with pinpoint open area that oozed at first but promptly scabbed over with gentle pressure. No signs of symptoms of infection. Buried phallus. Vital Signs Vital Signs Date Time Temp Pulse Resp B/P (MAP) Pulse Ox O2 Delivery O2 Flow Rate FiO2 10/04/18 11:00 97.4 104 18 151/92 (111) 94 BiPAP/CPAP 3.0 97.4 10/04/18 08:58 67 170/104 10/04/18 08:58 67 170/104 10/04/18 08:00 Nasal Cannula 3.0 10/04/18 07:55 3.0 10/04/18 07:00 98.1 67 20 170/104 (126) 96 BiPAP/CPAP 98.1 10/04/18 05:31 BiPAP/CPAP 10/04/18 03:25 98.2 65 22 164/107 (126) 95 BiPAP/CPAP 98.2 10/04/18 01:12 BiPAP/CPAP 10/03/18 23:21 BiPAP/CPAP 10/03/18 22:49 97.6 71 18 178/100 (126) 94 Nasal Cannula 3.0 97.6 10/03/18 21:01 105 191/118 10/03/18 20:00 3.0 10/03/18 20:00 Nasal Cannula 3.0 10/03/18 19:20 97.8 105 20 191/118 (142) 95 Nasal Cannula 3.0 97.8 10/03/18 16:57 107 201/118 10/03/18 15:00 97.8 106 16 172/99 (123) 94 Nasal Cannula 3.0 97.8 I & O Intake and Output 10/04/18 06:59 Intake Total 600 ml Output Total 7450 ml Balance -6850 ml Intake Oral 600 ml Output Urine Total 7450 ml # Bowel Movements 1 PHYSICAL EXAM Physical Exam Physical Exam: General appearance: Alert and Oriented Head: Normocephalic, without obvious abnormality Eyes: conjunctivae/corneas clear. PERRL, EOM's intact. Fundi benign Lungs: Regular respirations, non labored breathing Abdomen: soft, non-tender, obese. No masses, no organomegaly Pelvic: + scrotal swelling with pinpoint open area that oozed at first but promptly scabbed over with gentle pressure. No signs of symptoms of infection. Buried phallus. ASSESSMENT/PLAN Assessment/Plan Pt voiding well since he attempted voiding trial-times three voiding with no problems. For pinpoint open area-recommend general hygiene and barrier cream Again, encouraged weight loss for prevention. He may discharge home whenever medical team is ready. Discussed above with Dr. Pizano COMMENT Lab Laboratory Tests Test 10/04/18 08:25 Sodium Level 138 mmol/L (136-145) Potassium Level 4.4 mmol/L (3.5-5.1) Chloride Level 98 mmol/L (98-107) Carbon Dioxide Level 38 mmol/L (21-32) Anion Gap 2 (6-14) Blood Urea Nitrogen 18 mg/dL (8-26) Creatinine 1.1 mg/dL (0.7-1.3) Estimated GFR (Cockcroft-Gault) 72.1 Glucose Level 120 mg/dL (70-99) Calcium Level 9.2 mg/dL (8.5-10.1) Phosphorus Level 3.3 mg/dL (2.6-4.7) Albumin 2.4 g/dL (3.4-5.0) MARY JANE NORMAN MD 10/04/18 1551: ASSESSMENT/PLAN Assessment/Plan Agree with assessment and plan. ASIF QUINTANILLA APRN October 04, 2018 11:57 MARY JANE NORMAN MD October 04, 2018 15:51
[2018-10-04] MEDS ORDERED: AMOX1TAB11 PO (11:58)
[2018-10-04] MEDS ORDERED: CARV12.511 PO (11:58)
[2018-10-04] MEDS ORDERED: METF500T16 PO (11:58)
[2018-10-04] MEDS ORDERED: DOXY100C14 PO (11:58)
[2018-10-04] MEDS ORDERED: FURO40TA4 PO (11:58)
--- NOTE | 2018-10-04 12:11 | PDOC3 ---
Discharge Summary Visit Information Date of Admission: Sep 29, 2018 Date of Discharge: October 04, 2018 Admitting Diagnosis: Scrotal cellulitis Final Diagnosis Problems Medical Problems: (1) Obesity with serious comorbidity Status: Acute Brief Hospital Course Allergies Allergies Coded Allergies Type Severity Reaction Last Updated Verified morphine Allergy Intermediate 09/29/18 Yes Bleach (Sodium Hypochlorite) Adverse Reaction Intermediate 02/13/18 Yes Vital Signs Vital Signs Date Time Temp Pulse Resp B/P (MAP) Pulse Ox O2 Delivery O2 Flow Rate FiO2 10/04/18 11:00 97.4 104 18 151/92 (111) 94 BiPAP/CPAP 3.0 97.4 Lab Results Laboratory Tests Test 10/03/18 04:25 10/04/18 08:25 Sodium Level 143 mmol/L (136-145) 138 mmol/L (136-145) Potassium Level 4.2 mmol/L (3.5-5.1) 4.4 mmol/L (3.5-5.1) Chloride Level 102 mmol/L (98-107) 98 mmol/L (98-107) Carbon Dioxide Level 39 mmol/L (21-32) 38 mmol/L (21-32) Anion Gap 2 (6-14) 2 (6-14) Blood Urea Nitrogen 21 mg/dL (8-26) 18 mg/dL (8-26) Creatinine 1.4 mg/dL (0.7-1.3) 1.1 mg/dL (0.7-1.3) Estimated GFR (Cockcroft-Gault) 54.6 72.1 Glucose Level 139 mg/dL (70-99) 120 mg/dL (70-99) Calcium Level 9.1 mg/dL (8.5-10.1) 9.2 mg/dL (8.5-10.1) Phosphorus Level 3.8 mg/dL (2.6-4.7) 3.3 mg/dL (2.6-4.7) Albumin 2.3 g/dL (3.4-5.0) 2.4 g/dL (3.4-5.0) Laboratory Tests Test 10/04/18 08:25 Sodium Level 138 mmol/L (136-145) Potassium Level 4.4 mmol/L (3.5-5.1) Chloride Level 98 mmol/L (98-107) Carbon Dioxide Level 38 mmol/L (21-32) Anion Gap 2 (6-14) Blood Urea Nitrogen 18 mg/dL (8-26) Creatinine 1.1 mg/dL (0.7-1.3) Estimated GFR (Cockcroft-Gault) 72.1 Glucose Level 120 mg/dL (70-99) Calcium Level 9.2 mg/dL (8.5-10.1) Phosphorus Level 3.3 mg/dL (2.6-4.7) Albumin 2.4 g/dL (3.4-5.0) Brief Hospital Course This patient is a 48-year-old male who is super morbidly obese with a BMI of 72. He was encephalopathic, on BiPAP, unable to provide history of present illness, past medical history or review of systems at admission. He presented to the ER with complaints of testicular swelling and redness over a 3- day period. An ultrasound showed severe scrotal wall edema/thickening and per sistent nonspecific hyperechogenicity of the epididymis bilaterally and small bilateral hydroceles. No focal fluid collection or mass seen. He was dosed with vancomycin and Zosyn in the ER. The Zosyn was later switched to ceftriaxone after he vomited during the infusion. After he was admitted, a rapid response was called. He was found unresponsive, having difficulty breathing and was incontinent. He was placed on BiPAP and transferred to the Intensive Care Unit. An arterial blood gas returned critical. Pulmonology had been consulted and urology as well as ID. He diuresed 7.5L and significantly improved. He did have some ADINA likely 2/2 vancomycin, was changed to zyvox. He continues to require O2 and will go home on this, though he admits he will use his mother's instead of his own. BIPAP helped prn. Urology placed acuña, easily removed with no significant PVR. He was able to ambulate with PT yesterday. Cr down to 1.1 at time of discharge and CO2 elevated consisted with a contraction alkalosis. Assessment: Bilateral scrotal cellulitis, hydroceles Sepsis, clarissa intertriginous areas Morbid obesity BMI 72 A1c 7.8 - Diabetes Acute hypoxic and hypercapnic resp failure with COPD exacerbation,obesity related hypoventilation on NIPPV Hx of group C strep sepsis in June 2018 Chronic venous dermatitis History of MRSA Previous smoker ADINA - ATN with a combination of Lasix Vanco and Zosyn in his past admissions Encephalopathy - metabolic - sec to Co2 narcosis? - he can be sleepy -WOF further inc narcs Plan Follow ID recs regarding antibiotics - can change to oral 10 days doxy and augmentin Add ammonia lactate to legs Add OT for lymphedema Home O2 He essentially needs to lose weight or else his problems will never get better He needs to see a bariatric specialist to see if that can help Repeat Renal panel outpatient Vitals Vital Signs Date Time Temp Pulse Resp B/P (MAP) Pulse Ox O2 Delivery O2 Flow Rate FiO2 10/03/18 11:00 97.8 80 20 108/64 (79) 94 Nasal Cannula 3.0 97.8 Physical Exam GENERAL: The patient is on BiPAP and unresponsive. HEENT: Pupils equally round, reactive. Oral cavity dry. LUNGS: Poor aeration. HEART: Distant heart tones. Regular. ABDOMEN: Morbidly obese, soft, no grimace or guarding to palpation. Bowel sounds present. GENITOURINARY: Scrotum is edematous, red. No open wound noted though unable to fully assess posteriorly. Buried phallus. EXTREMITIES: Chronic venous stasis dermatitis lower extremities bilaterally. No cyanosis. SKIN: Warm without generalized rash. He has multiple tattoos. He has yeast in skin folds including pannus and groin areas. NEUROLOGIC: Grimaces to deep sternal rub; otherwise, unresponsive. General: Alert, Oriented X3, mild distress, Other (on BiPAP) Heart: Regular rate, No murmurs Lungs: Crackles Abdomen: Soft Extremities: Other (1+ edema, discoloration and chronic changes) Skin: Other (severe redness moisture intertriginous areas-apply nystatin powder or cream) Greater than 30 minutes spent on discharge. Discharge Information Condition at Discharge: Improved Follow Up: Weeks (2) Disposition/Orders: D/C to Home Scheduled Amoxicillin/Potassium Clav (Amox Tr-K Clv 875-125 Mg Tab) 1 Each Tablet, 1 TAB PO BID for Cellulitis for 10 Days, #20 Prescribed by: FRANCISCO JAVIER NICHOLSON MD on 10/04/18 1158 Carvedilol (Carvedilol ) 12.5 Mg Tablet, 12.5 MG PO BIDWMEALS for CHF for 30 Days, #60 Ref 5 Prescribed by: FRANCISCO JAVIER NICHOLSON MD on 10/04/18 1158 Doxycycline Monohydrate (Doxycycline Monohydrate) 100 Mg Capsule, 1 CAP PO BID for Cellulitis for 10 Days, #20 Prescribed by: FRANCISCO JAVIER NICHOLSON MD on 10/04/18 1158 Furosemide (Furosemide) 40 Mg Tablet, 1 TAB PO DAILY for 30 for 30 Days, #30 Ref 5 Prescribed by: FRANCISCO JAVIER NICHOLSON MD on 10/04/18 1158 Metformin Hcl (Metformin Hcl) 500 Mg Tablet, 500 MG PO BIDWMEALS for ANTI- DIABETIC for 30 Days, #60 Ref 2 Prescribed by: FRANCISCO JAVIER NICHOLSON MD on 10/04/18 1158 Discontinued Medications [No home meds] , (Reported) Entered as Reported by: KRYSTAL COKER on 09/29/182058 Last Action: Reviewed on 09/30/18 0849 by FRANCISCO JAVIER HOLLY MD October 04, 2018 12:11
== END 2018-10-04 15:28 | disposition home or self-care (01) | DRG 871 ==
LOC: ER 15:28 → 5 NORTH 18:34 → 1 WEST ICU 09-30 06:12 → 2 NORTH 10-01 22:00
PROVIDERS: ADMIT Internal Medicine; ATTEND Internal Medicine
PROC: 5A09457 Assistance with Respiratory Ventilation, 24-96 Consecutive Hours, Continuous Positive Airway Pressure (ICD-10-PCS; principal; 2018-09-30)
PROC: 5A09357 Assistance with Respiratory Ventilation, Less than 24 Consecutive Hours, Continuous Positive Airway Pressure (ICD-10-PCS; 2018-10-02)
PROC: 5A09357 Assistance with Respiratory Ventilation, Less than 24 Consecutive Hours, Continuous Positive Airway Pressure (ICD-10-PCS; 2018-10-03)
PROC: 5A09357 Assistance with Respiratory Ventilation, Less than 24 Consecutive Hours, Continuous Positive Airway Pressure (ICD-10-PCS; 2018-10-04)
DX: A41.9 Sepsis, unspecified organism (principal); J96.21 Acute and chronic respiratory failure with hypoxia; G92 Toxic encephalopathy; J96.22 Acute and chronic respiratory failure with hypercapnia; N17.0 Acute kidney failure with tubular necrosis; I50.33 Acute on chronic diastolic (congestive) heart failure; E66.2 Morbid (severe) obesity with alveolar hypoventilation; E87.3 Alkalosis; I13.0 Hypertensive heart and chronic kidney disease with heart failure and stage 1 through stage 4 chronic kidney disease, or unspecified chronic kidney disease; J44.1 Chronic obstructive pulmonary disease with (acute) exacerbation; J98.11 Atelectasis; L03.115 Cellulitis of right lower limb; L03.116 Cellulitis of left lower limb; Z68.45 Body mass index [BMI] 70 or greater, adult; B37.2 Candidiasis of skin and nail; E11.22 Type 2 diabetes mellitus with diabetic chronic kidney disease; E11.65 Type 2 diabetes mellitus with hyperglycemia; F17.200 Nicotine dependence, unspecified, uncomplicated; I87.2 Venous insufficiency (chronic) (peripheral); F12.90 Cannabis use, unspecified, uncomplicated; I87.8 Other specified disorders of veins; I89.0 Lymphedema, not elsewhere classified; L30.9 Dermatitis, unspecified; N18.9 Chronic kidney disease, unspecified; N43.3 Hydrocele, unspecified; T36.8X5A Adverse effect of other systemic antibiotics, initial encounter; Z82.49 Family history of ischemic heart disease and other diseases of the circulatory system; Z86.14 Personal history of Methicillin resistant Staphylococcus aureus infection; Z83.3 Family history of diabetes mellitus; Z88.8 Allergy status to other drugs, medicaments and biological substances; N49.2 Inflammatory disorders of scrotum
CPT/HCPCS: 36415; 36600; 71045; 76870; 80048; 80053; 80069; 81001; 82805; 83036; 83605; 83880; 84132; 84145; 85025; 85610; 85651; 85730; 87040; 93005; 94618; 94640; 94660; 94760; J0696; J1940; J2020; J2185; J2248; J2543; J3010; J3370; J3490; J7030; J7040; P9046; 97140; 97535; 99285-25

== ENCOUNTER 2020-01-29 10:17 | Inpatient (IN) | payer MEDICARE, OTHER ==
[~2020-01-29] VITALS: Ht 177.8 cm; Wt 232.1 kg
[~2020-01-29 10:17] MED LIST changes: +AMOX1TAB11 PO; +CARV12.511 PO; +FURO40TA4 PO; +FURO80TA72 PO; +Fluconazole PO; +HYDR-2869 PO; -LINE600T PO; +LINE600T12 PO; +LISI1TAB37 PO; -LISI1TAB5 PO; +METF500T16 PO; +MULT-154 PO; +No home meds; +POTA20TA84 PO
[2020-01-29] MEDS ORDERED: ASPIRIN 325 MG TABLET PO ONE (12:30)
[2020-01-29 13:03] LABS: BILIRUBIN,URINE NEGATIVE (NEG); CLARITY,URINE CLEAR; COLOR,URINE YELLOW; NITRITE,URINE NEGATIVE (NEG); PROTEIN,URINE 30 mg/dL (NEG-TRACE)
[2020-01-29 13:12] LABS: AMORPHOUS SEDIMENT,UR PRESENT /HPF; BACTERIA,URINE FEW /HPF (0-FEW); HYALINE CASTS, URINE MANY /HPF; RBC,URINE OCC /HPF (0-2)
--- NOTE | 2020-01-29 13:27 | EKG ---
[facility] [address] [place] [address] Test Date: 2020-01-29 Test Time: 12:29:52 Pat Name: FRANCISCO JAVIER HAYES Department: Room: Gender: M Society Reporter: : 1970 Requested By: JUANA HANDLEY Order Number: [id number] Reading MD: Measurements Intervals [place] Rate: 112 P: 51 IA: 180 QRS: 113 QRSD: 80 T: 42 QT: 314 QTc: 430 Interpretive Statements SINUS TACHYCARDIA ABNORMAL RIGHT AXIS DEVIATION ABNORMAL ECG RI6.02 No previous ECG available for comparison
--- NOTE | 2020-01-29 13:28 | RAD ---
EXAM: PORTABLE CHEST 1V INDICATION: Reason: dyspnea / Spl. Instructions: / History: . TECHNIQUE: Single view COMPARISON: 08/15/2019 chest x-ray FINDINGS: The heart size is enlarged, similar to prior. The great vessels appear unremarkable. There is no hilar or mediastinal mass. The lungs show interval engorgement of the pulmonary vessels bilaterally. The costophrenic angles are not fully included. The costophrenic angles are not fully included. A right pleural effusion is suspected. No evidence of pneumothorax of the apices There are no significant osseous abnormalities. IMPRESSION: Cardiomegaly with interval worsening of pulmonary vascular congestion. There are probable bilateral pleural effusions but the costophrenic angles are not fully included. Electronically signed by: Antonio Mariee MD (01/29/2020 1:24 PM) [id number]
--- NOTE | 2020-01-29 13:39 | PHYS DOC ---
Past Medical History Past Medical History: CHF, COPD, Hypertension, Other Additional Past Medical Histor: OBESITY,INFECTED SCROTUM/CELLULITIS Past Surgical History: Other Additional Past Surgical Histo: SCROTAL SX; Smoking Status: Current Every Day Smoker Alcohol Use: None Drug Use: Marijuana General Adult EDM: Chief Complaint: SHORTNESS OF BREATH HPI: HPI: Patient is a 49 year old [f__sex] who presents with [] Review of Systems: Review of Systems: Constitutional: Denies fever or chills. [] Eyes: Denies change in visual acuity. [] HENT: Denies nasal congestion or sore throat. [] Respiratory: Denies cough or shortness of breath. [] Cardiovascular: Denies chest pain or edema. [] GI: Denies abdominal pain, nausea, vomiting, bloody stools or diarrhea. [] : Denies dysuria. [] Musculoskeletal: Denies back pain or joint pain. [] Integument: Denies rash. [] Neurologic: Denies headache, focal weakness or sensory changes. [] Endocrine: Denies polyuria or polydipsia. [] Lymphatic: Denies swollen glands. [] Psychiatric: Denies depression or anxiety. [] Heart Score: Risk Factors: Risk Factors: DM, Current or recent (<one month) smoker, HTN, HLP, family history of CAD, obesity. Risk Scores: Score 0 - 3: 2.5% MACE over next 6 weeks - Discharge Home Score 4 - 6: 20.3% MACE over next 6 weeks - Admit for Clinical Observation Score 7 - 10: 72.7% MACE over next 6 weeks - Early Invasive Strategies Current Medications: Current Medications Medications (Trade) Dose Ordered Sig/[facility] Start Time Stop Time Status Last Admin Dose Admin Aspirin (Brijesh Aspirin) 325 mg 1X ONCE 01/29/20 12:30 01/29/20 12:31 DC Allergies: Allergies: Allergies Coded Allergies Type Severity Reaction Last Updated Verified morphine Allergy Intermediate 09/29/18 Yes Bleach (Sodium Hypochlorite) Adverse Reaction Intermediate 02/13/18 Yes Physical Exam: PE: Constitutional: Well developed, well nourished, no acute distress, non-toxic appearance. [] HENT: Normocephalic, atraumatic, bilateral external ears normal, oropharynx moist, no oral exudates, nose normal. [] Eyes: PERRLA, EOMI, conjunctiva normal, no discharge. [] Neck: Normal range of motion, no tenderness, supple, no stridor. [] Cardiovascular:Heart rate regular rhythm, no murmur [] Lungs & Thorax: Bilateral breath sounds clear to auscultation [] Abdomen: Bowel sounds normal, soft, no tenderness, no masses, no pulsatile masses. [] Skin: Warm, dry, no erythema, no rash. [] Back: No tenderness, no CVA tenderness. [] Extremities: No tenderness, no cyanosis, no clubbing, ROM intact, no edema. [] Neurologic: Alert and oriented X 3, normal motor function, normal sensory function, no focal deficits noted. [] Psychologic: Affect normal, judgement normal, mood normal. [] Current Patient Data: Labs: Laboratory Tests Test 01/29/20 11:57 Urine Collection Type Unknown Urine Color Yellow Urine Clarity Clear Urine pH 5.0 (<5.0-8.0) Urine Specific [place] 1.010 (1.000-1.030) Urine Protein 30 mg/dL (NEG-TRACE) Urine Glucose (UA) Negative mg/dL (NEG) Urine Ketones (Stick) Negative mg/dL (NEG) Urine Blood Negative (NEG) Urine Nitrite Negative (NEG) Urine Bilirubin Negative (NEG) Urine Urobilinogen Dipstick 1.0 mg/dL (0.2 mg/dL) Urine Leukocyte Esterase Negative (NEG) Urine RBC Occ /HPF (0-2) Urine WBC 1-4 /HPF (0-4) Urine Amorphous Sediment Present /HPF Urine Bacteria Few /HPF (0-FEW) Urine Hyaline Casts Many /HPF Urine Mucus Marked /LPF Vital Signs: Vital Signs Date Time Temp Pulse Resp B/P (MAP) Pulse Ox O2 Delivery O2 Flow Rate FiO2 01/29/20 12:33 114 106/50 (68) 01/29/20 12:10 98.0 22 93 Nasal Cannula 22.0 98.0 EKG: EKG: @1229 Sinus tachycardia at 112bpm, NO ST elevation, QRS 80ms, QT/QTc 314/430ms Radiology/Procedures: Radiology/Procedures: PROCEDURE: PORTABLE CHEST 1V EXAM: PORTABLE CHEST 1V INDICATION: Reason: dyspnea / Spl. Instructions: / History: . TECHNIQUE: Single view COMPARISON: 08/15/2019 chest x-ray FINDINGS: The heart size is enlarged, similar to prior. The great vessels appear unremarkable. There is no hilar or mediastinal mass. The lungs show interval engorgement of the pulmonary vessels bilaterally. The costophrenic angles are not fully included. The costophrenic angles are not fully included. A right pleural effusion is suspected. No evidence of pneumothorax of the apices There are no significant osseous abnormalities. IMPRESSION: Cardiomegaly with interval worsening of pulmonary vascular congestion. There are probable bilateral pleural effusions but the costophrenic angles are not fully included. Electronically signed by: Antonio Mariee MD (01/29/2020 1:24 PM) [id number] Course & Med Decision Making: Course & Med Decision Making Pertinent Labs and Imaging studies reviewed. (See chart for details) [] Dragon Disclaimer: Dragon Disclaimer: This electronic medical record was generated, in whole or in part, using a voice recognition dictation system. Departure Departure Impression: Primary Impression: Acute exacerbation of CHF (congestive heart failure) Qualified Codes: I50.9 - Heart failure, unspecified Additional Impressions: Elevated d-dimer Obesity Qualified Codes: E66.01 - Morbid (severe) obesity due to excess calories; Z68.45 - Body mass index (bmi) 70 or greater, adult Suspected 2019 novel coronavirus infection Elevated troponin Yeast dermatitis Disposition: 09 ADMITTED INPATIENT Admitting Physician: Allison Licea Condition: GUARDED Referrals: ALLISON LICEA MD (PCP) Justicifation of Admission Dx: Justifications for Admission: Justification of Admission Dx: Yes Comments: CHF exacerbation, elevated troponin, elevated d-dimer, suspected COVID19, yeast dermatitis COVID-19 Assessment: COVID-19 Patient Risks: Age 65 or older: No Sign of co-morbidity: Yes Exp to person + for COVID: No Exp to PUI: No Travel from affected area: No Lower respiratory symptoms: Yes Fever: No PPE Use: Full PPE with N95 mask or PAPR: Yes Critical Care Time Critical care time was 30 minutes which includes time at bedside, spent in discussion of patient's care with specialists and/or family members, with interp retation of laboratory and/or radiological studies and is exclusive of procedures. JUANA HANDLEY DO Jan 29, 2020 13:39
[2020-01-29] MEDS ORDERED: NYSTATIN TOPICAL POWDER 15GM BOTTLE. TP ONE (13:45)
[2020-01-29 14:12] LABS: BASO % 0 % (0-3); EOS # 0.2 x10^3/uL (0.0-0.7); EOS % 2 % (0-3); HEMATOCRIT 44.8 % (39.0-53.0); LYMPH # 2.7 x10^3/uL (1.0-4.8); LYMPH % 25 % (24-48); MEAN CORPUSCULAR HEMOGLOBIN 27 pg (25-35); MEAN CORPUSCULAR HGB CONC 31 g/dL (31-37); MEAN CORPUSCULAR VOLUME 86 fL (79-100); MONO # 1.1 x10^3/uL (0.0-1.1); MONO % 10 % (0-9); NEUT # 6.7 x10^3/uL (1.8-7.7); NEUT % 63 % (31-73); PLATELET COUNT 153 x10^3/uL (140-400); RED BLOOD COUNT 5.22 x10^6/uL (4.30-5.70); RED CELL DISTRIBUTION WIDTH 17.6 % (11.5-14.5); WHITE BLOOD COUNT 10.6 x10^3/uL (4.0-11.0)
[2020-01-29 14:21] LABS: CALCIUM 8.8 mg/dL (8.5-10.1); POTASSIUM 4.9 mmol/L (3.5-5.1)
[2020-01-29 14:26] LABS: ALBUMIN 2.5 g/dL (3.4-5.0); ALBUMIN/GLOBULIN RATIO 0.6 (1.0-1.7); TOTAL BILIRUBIN 0.6 mg/dL (0.2-1.0); TOTAL PROTEIN 6.7 g/dL (6.4-8.2)
[2020-01-29 14:36] LABS: CREATINE KINASE 45 U/L (39-308)
[2020-01-29] MEDS ORDERED: HEPARIN for IV BOLUS 10,000 UNIT/10 ML VIAL. IV ONE (15:45)
[2020-01-29] MEDS ORDERED: BUMETANIDE 1 MG/4 ML VIAL. IV ONE ×2 (15:45)
[2020-01-29] MEDS ORDERED: ONDANSETRON PF 4 MG/2 ML VIAL. IV PRN (15:45)
--- NOTE | 2020-01-29 16:20 | RAD ---
EXAM: Lateral lower extremity venous Doppler sonogram. HISTORY: Pain and swelling. TECHNIQUE: Damon scale and color Doppler sonographic evaluation of the bilateral lower extremity veins with spectral waveform analysis was performed. FINDINGS: The exam is significantly limited due to patient body habitus. The right posterior tibial vein and left popliteal, posterior tibial and greater saphenous veins are not seen. There is normal color flow, normal compressibility and there are normal spectral waveforms in the remainder of the lower extremity veins. IMPRESSION: No Doppler evidence of lower extremity deep venous thrombosis, with evaluation significantly limited due to body habitus. The left popliteal, bilateral posterior tibial and left greater saphenous veins are not seen. Electronically signed by: Hilda Richardson MD (01/29/2020 4:17 PM) [facility]
[2020-01-29] MEDS: HEPARIN 25,000UTS/250ML PREMIX 250 ML IV PRN (16:57)
[2020-01-29] MEDS ORDERED: DEXTROSE 50% 25 GM / 50ML DISP.SYRIN. IV PRN (20:15)
[2020-01-29 21:20] VITALS: BP 122/64
[2020-01-29] MEDS: BUMETANIDE 1 MG/4 ML VIAL. IV SCH (21:52)
[2020-01-29 23:55] VITALS: BP 132/51
[2020-01-30] VITALS (7 sets, daily range): BP systolic 117–168; BP diastolic 50–102
[2020-01-30] MEDS: HEPARIN for IV BOLUS 10,000 UNIT/10 ML VIAL. IV PRN ×2 (00:08→09:10)
--- NOTE | 2020-01-30 02:42 | NUR ---
The patient, FRANCISCO JAVIER HAYES, 49 y/o, M admitted by ANT LICEA MD, was given written information regarding hospital policies, unit procedures and contact persons. Orders received and reviewed. Valuables were checked and wallet, pants, and shirt. Patient has nipple pierced and ears.
--- NOTE | 2020-01-30 06:19 | NUR ---
Unable to obtain patients weight. Patient refusing bariatric bed and wanting a regular hospital bed and that bed unable to obtain weight and tried a standing scale and only able to weigh up to 500lbs. Patient above 500lbs and unable to weigh at this time.
[2020-01-30 06:20] LABS: BASO # 0.1 x10^3/uL (0.0-0.2); BASO % 1 % (0-3); EOS # 0.1 x10^3/uL (0.0-0.7); EOS % 1 % (0-3); HEMATOCRIT 46.8 % (39.0-53.0); HEMOGLOBIN 14.5 g/dL (13.0-17.5); LYMPH # 2.5 x10^3/uL (1.0-4.8); LYMPH % 28 % (24-48); MEAN CORPUSCULAR HEMOGLOBIN 27 pg (25-35); MEAN CORPUSCULAR HGB CONC 31 g/dL (31-37); MEAN CORPUSCULAR VOLUME 87 fL (79-100); MONO % 11 % (0-9); NEUT # 5.3 x10^3/uL (1.8-7.7); NEUT % 58 % (31-73); PLATELET COUNT 159 x10^3/uL (140-400); RED CELL DISTRIBUTION WIDTH 17.8 % (11.5-14.5)
[2020-01-30 06:55] LABS: CALCIUM 8.7 mg/dL (8.5-10.1); CREATININE 1.9 mg/dL (0.7-1.3); GFR 38.2; POTASSIUM 5.2 mmol/L (3.5-5.1)
[2020-01-30 07:09] LABS: CHOLESTEROL/HDL RATIO 3.8
[2020-01-30] MEDS: INSULIN LISPRO 300 UNITS/3 ML VIAL. SQ SCH ×3 (08:00→17:00)
--- NOTE | 2020-01-30 09:04 | PDOC ---
Provider Note Provider Note Pt seen .H&P dictated.#[id number]. Anasarca, copd /chf /crf /morbid obesity/DM ANT LICEA MD Jan 30, 2020 09:04
[2020-01-30] MEDS: HEPARIN 25,000UTS/250ML PREMIX 250 ML IV PRN (09:10)
[2020-01-30] MEDS: BUMETANIDE 1 MG/4 ML VIAL. IV SCH ×2 (09:13→13:28)
[2020-01-30] MEDS: POTASSIUM CHLORIDE 20 MEQ TABLET.ER. PO SCH (09:13)
[2020-01-30] MEDS: CARVEDILOL 12.5 MG TABLET. PO SCH ×2 (09:13→18:21)
[2020-01-30] MEDS: LISINOPRIL 20 MG TABLET PO SCH (09:14)
--- NOTE | 2020-01-30 11:53 | CONS ---
DATE OF CONSULTATION: PULMONARY CONSULTATION REASON FOR CONSULTATION: Respiratory failure, hypoxia. HISTORY OF PRESENT ILLNESS: The patient is a 49-year-old morbidly obese male with a BMI of 76. The patient has history of tobacco use for about 20 years. He was brought into the hospital with complaint of shortness of breath. He has chronic lower extremity edema. He has no significant cough, no fever, no chills. He is normally not on home oxygen. No history of deep vein thrombosis or pulmonary embolism. His chest x-ray was reviewed. It shows faint bilateral interstitial infiltrates. I have been asked to see him for further evaluation. He denies any obvious COVID exposure. PAST MEDICAL HISTORY: History of morbid obesity, likely JEANNE, OHS; history of tobaccoism, possible COPD. History of CHF, hypertension. Last echo with an EF of 45%. PAST SURGICAL HISTORY: No recent surgeries. ALLERGIES: BLEACH AND MORPHINE. MEDICATIONS: Reviewed as listed in the MRAD including Bumex that he received in the ER. REVIEW OF SYSTEMS: Twelve-point system obtained. Pertinent positives discussed in my history of present illness, otherwise noncontributory. All systems that were negative were reviewed as well. SOCIAL HISTORY: Smoked for about 20 years. FAMILY HISTORY: Noncontributory to lungs. PHYSICAL EXAMINATION: VITAL SIGNS: Reviewed. Blood pressure was 123/50, afebrile, pulse ox 98% on 2 liters. GENERAL: Visual exam done due to COVID-19 pandemia and suspicion. No obvious respiratory distress. He is markedly obese. EXTREMITIES: He has bilateral venous stasis and lymphedema and chronic venous stasis. LABORATORY DATA: Reviewed. White cell count 9.0, hemoglobin 14.5 and platelets are 159. BUN 49, creatinine 1.9. IMPRESSION: 1. Acute hypoxic respiratory failure, likely secondary to acute on chronic congestive heart failure in a patient who has ejection fraction of 45%. He probably also has coexisting right heart failure as well. 2. Underlying morbid obesity with suspected obesity hypoventilation syndrome and obstructive sleep apnea. His BMI is 76. He has elevated bicarb suggesting chronic hypercapnia. 3. Chronic lymphedema of the lower extremity/venous stasis. 4. Low clinical suspicion for COVID. 5. Abnormal D-dimer level of 1.1. Venous Doppler was negative. Clinically, low suspicion for thromboembolic disease. RECOMMENDATIONS: 1. We will continue diuresis with Bumex. 2. Rule out COVID. Clinical suspicion is low. 3. Follow chest x-ray post-diuresis. 4. DVT prophylaxis with subcutaneous heparin. 5. May benefit from sleep study as an outpatient. 6. 6-minute walk test at the time of discharge. 7. Discussed with RN. We will follow along with you. JAMES MONSON MD DR: DANIEL/trevor JOB#: [id number] / [id number]
--- NOTE | 2020-01-30 12:07 | HP ---
ADMIT DATE: 01/29/2020 ATTENDING PHYSICIAN: Ant Kay MD REASON FOR ADMISSION TO THE HOSPITAL: Anasarca, shortness of breath, patient has COPD, obstructive sleep apnea, morbid obesity and diastolic heart failure and noncompliance. HISTORY OF PRESENT ILLNESS: The patient is a 49-year-old male, patient is extremely obese at 241 kg. Last admission to the hospital, close to 6 months ago patient at that time had echocardiogram shows diastolic dysfunction seen by Pulmonary, Cardiology and recommended a CPAP testing and putting on that, but patient did not follow through that. He was having more shortness of breath, swelling of lower extremities and the patient came to the Emergency Room and had an elevated BNP. Troponin is borderline and the patient was admitted to the hospital, was given Lasix or Bumex IV. PAST MEDICAL HISTORY: Hypertension, heart failure, hyperlipidemia, diabetes, sleep apnea, chronic lymphedema. PAST SURGICAL HISTORY: No major surgeries. FAMILY HISTORY: Positive for diabetes, heart disease, hypertension. SOCIAL HISTORY: Smoked 1 pack for 30 years. Denies alcohol. Denies street drugs. ALLERGIES: TO BLEACH AND MORPHINE. MEDICATIONS AT HOME: The patient is on Lasix 80 mg twice a day, metformin 500 mg 2 tablets twice a day, multivitamin daily, carvedilol 12.5 two tablets twice a day, hydralazine 50 mg 3 times daily, lisinopril 20 mg daily, potassium 20 mEq twice a day. REVIEW OF SYSTEMS: Complains of swelling in lower extremities, short of breath, feeling tired. Denies any chest pain, denies any contact with anybody who has a COVID exposure. PHYSICAL EXAMINATION: VITAL SIGNS: Temperature 97, pulse 67, respirations 20, blood pressure 132/51, he is around 89-90% on 2 liters. HEENT: Head is atraumatic. Pupils equal. Oral cavity: No congestion. NECK: Supple. CHEST: Symmetrical, morbidly obese. CARDIOVASCULAR: S1, S2. ABDOMEN: Huge. He has abdominal wall swelling from the chronic lymphedema. His penis is buried in the scrotum. Has lymphedema of lower extremities 3-4+ all the way up to the thighs and firm in consistency. NEUROLOGIC: The patient is making conversation. Moving upper extremities, lower extremities, weak. LABORATORY DATA: Shows a white count of 10, hemoglobin 14, platelets 153. INR 1.6. Electrolytes show sodium 138, potassium 4.9, chloride 101, bicarbonate 35, anion gap 2, BUN 48, creatinine 2.0, glucose 112. LFTs are normal. BNP was 1200. Troponin was 0.25, trending down to 0.2 and 0.1, lactic acid 1.3. Ammonia 13. He had a chest x-ray which shows cardiomegaly with pulmonary vascular congestion and had a venous Doppler negative for DVT. FINAL IMPRESSION: 1. Anasarca. 2. Acute on chronic diastolic heart failure. 3. Chronic obstructive pulmonary disease. 4. Obstructive sleep apnea. 5. Morbid obesity. 6. Diabetes. 7. Chronic kidney disease. 8. Smoking. 9. Noncompliance. 10. 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 PLAN: At this time, was admit to hospital, IV Bumex. We will hold off on metformin secondary to worsening kidney failure. We will get a Pulmonary, Cardiology consult. Because of elevated D-dimer, patient was put on a heparin drip. The patient is too big to go for CT angiogram of the chest and we will have Pulmonary and Cardiology consult and see. IV Lasix or Bumex for the present time and blood sugars and monitor the INR and PTT. PROGNOSIS: Guarded because of multiple comorbid conditions. ANT KAY MD DR: TAYLOR/trevor JOB#: [id number] / [id number]
--- NOTE | 2020-01-30 12:14 | PDOC2 ---
CONSULT Date of Consult Date of Consult DATE: 01/30/20 TIME: 12:06 Reason for Consult Reason for Consult: ADINA Referring Physician Referring Physician: VINAYAK Identification/Chief Complaint Chief Complaint SOB Source Source: Chart review, Patient History of Present Illness Reason for Visit: THIS IS A 49 YR OLD MORBIDLY OBESE MALE WITH SOB. HAS CHRONIC LE EDEMA. CURRENTLY UNDERGOING CARDIOLOGY AND PULM EVALUATION. EF OF 60% EARLIER THIS YEAR. BASELINE CR OF ABOUT 1.2 AND NOW CR OF 2.0 WITH K OF 5.2. UA IS NEG. DENIED ANY NEW MEDS OTC OR ANY OTHER NEPHROTOXINS , IMAGING SUGGESTIVE OF BILATERAL INFILTRATES. NO HX OF ANY OTHER RELATED PROBLEMS REPORTED AND HE HAS BEEN HEMODYNAMICALLY STABLE. Past Medical History Cardiovascular: CHF, HTN, Hyperlipidemia, Other Pulmonary: Pneumonia, Other CENTRAL NERVOUS SYSTEM: Other GI: No pertinent hx Heme/Onc: No pertinent hx Hepatobiliary: No pertinent hx Psych: No pertinent hx Musculoskeletal: Osteoarthritis Infectious disease: Other Renal/: UTI Endocrine: Diabetes Past Surgical History Past Surgical History: Other Family History Family History: Diabetes, Heart Disease, Hypertension Social History ALCOHOL: none Drugs: None Lives: with Family Current Problem List Problem List Problems Medical Problems: (1) Acute exacerbation of CHF (congestive heart failure) Status: Acute (2) Elevated d-dimer Status: Acute (3) Elevated troponin Status: Acute (4) Obesity Status: Acute (5) Suspected 2019 novel coronavirus infection Status: Acute (6) Yeast dermatitis Status: Acute Current Medications Current Medications Current Medications Aspirin (Brijesh Aspirin) 325 mg 1X ONCE PO Last administered on 01/29/20at 14:30; Start 01/29/20 at 12:30; Stop 01/29/20 at 12:31; Status DC Nystatin (Nystop) 1 jason 1X ONCE TP Last administered on 01/29/20at 16:50; Start 01/29/20 at 13:45; Stop 01/29/20 at 13:46; Status DC Bumetanide (Bumex) 0.5 mg 1X ONCE IV ; Start 01/29/20 at 15:45; Stop 01/29/20 a t 15:44; Status DC Heparin Sodium (Porcine) (Heparin Sodium) 4,000 unit 1X ONCE IV Last administered on 01/29/20at 16:55; Start 01/29/20 at 15:45; Stop 01/29/20 at 15:53; Status DC Heparin Sodium/ Dextrose 250 ml @ 0 mls/hr CONT PRN IV PER PROTOCOL Last administered on 01/30/20 09:10; Start 01/29/20 at 15:45 Heparin Sodium (Porcine) (Heparin Sodium) 6,000 unit PRN Q6HRS PRN IV FOR UFH LEVEL LESS THAN 0.2 Last administered on 01/30/20 09:10; Start 01/29/20 at 15:45 Ondansetron HCl (Zofran) 4 mg PRN Q8HRS PRN IV NAUSEA/VOMITING; Start 01/29/20 at 15:45; Stop 01/30/20 at 15:44 Bumetanide (Bumex) 1 mg 1X ONCE IV Last administered on 01/29/20at 16:54; Start 01/29/20 at 15:45; Stop 01/29/20 at 15:49; Status DC Carvedilol (Coreg) 25 mg BIDWMEALS PO Last administered on 01/30/20 09:13; Start 01/30/20 at 08:00 Hydralazine HCl (Apresoline) 50 mg TID PO Last administered on 01/30/20 09:14; Start 01/29/20 at 21:00 Lisinopril (Prinivil) 20 mg DAILY PO Last administered on 01/30/20 09:14; Start 01/30/20 at 09:00 Potassium Chloride (Klor-Con) 40 meq DAILYWBKFT PO Last administered on 01/30/20 09:13; Start 01/30/20 at 08:00 Bumetanide (Bumex) 1 mg BID92 IV Last administered on 01/30/20 09:13; Start 01/29/20 at 20:00 Insulin Human Lispro (HumaLOG) 0-5 UNITS TIDWMEALS SQ ; Start 01/30/20 at 08:00 Dextrose (Dextrose 50%-Water Syringe) 12.5 gm PRN Q15MIN PRN IV SEE COMMENTS; Start 01/29/20 at 20:15 Active Scripts Active [Fluconazole] 100 MG Tablet 400 Mg PO DAILY 10 Days Hydralazine Hcl 50 Mg Tablet 50 Mg PO TID 90 Days K-Tab ER (Potassium Chloride) 20 Meq Tablet.er 20 Meq PO BID 30 Days Lasix (Furosemide) 80 Mg Tablet 1 Tab PO BID 30 Days Reported One-A-Day Essential (Multivitamin) 1 Each Tablet 1 Tab PO DAILY 30 Days Metformin Hcl 500 Mg Tablet 2 Tab PO BIDWMEALS Carvedilol (Carvedilol) 12.5 Mg Tablet 2 Tab PO BIDWMEALS Lisinopril 20 Mg Tablet 1 Tab PO DAILY Allergies Allergies: Coded Allergies: morphine (Verified Allergy, Intermediate, 09/29/18) Bleach (Sodium Hypochlorite) (Verified Adverse Reaction, Intermediate, 02/13/18) ROS General: YES: Fatigue, Appetite PSYCHOLOGICAL ROS: YES: Depression Eyes: Yes Decreased vision ALLERGY AND IMMUNOLOGY: YES: Seasonal Allergies Respiratory: YES: Cough, Orthopnea, Shortness of breath, SOB with excertion Cardiovascular: yes Edema Gastrointestinal: Yes Constipation Genitourinary: YES Other (NOCTURIA) Musculoskeletal: Yes Muscular Weakness Skin: Yes Dry Skin Physical Exam General: Alert, Oriented X3, Cooperative, mild distress HEENT: Atraumatic, PERRLA Lungs: Clear to auscultation Heart: Regular rate Abdomen: Normal bowel sounds, Soft, No tenderness Extremities: Other (3+ EDEMA) Neuro: Normal speech, Sensation intact Psych/Mental Status: Other (FLAT ANXIOUS AFFECT) MUSCULOSKELETAL: Other (3-4+ EDEMA WITH EXCORIATION AND PROB SKIN FUNGUS BILATERAL LE ) Vitals VITALS Vital Signs Date Time Temp Pulse Resp B/P (MAP) Pulse Ox O2 Delivery O2 Flow Rate FiO2 01/30/20 09:14 64 123/50 01/30/20 07:00 97.7 16 98 Nasal Cannula 2.0 97.7 Labs Labs Laboratory Tests Test 01/29/20 11:57 01/29/20 13:58 01/29/20 18:20 01/29/20 21:36 Urine Collection Type Unknown Urine Color Yellow Urine Clarity Clear Urine pH 5.0 (<5.0-8.0) Urine Specific Buchanan 1.010 (1.000-1.030) Urine Protein 30 mg/dL (NEG-TRACE) Urine Glucose (UA) Negative mg/dL (NEG) Urine Ketones (Stick) Negative mg/dL (NEG) Urine Blood Negative (NEG) Urine Nitrite Negative (NEG) Urine Bilirubin Negative (NEG) Urine Urobilinogen Dipstick 1.0 mg/dL (0.2 mg/dL) Urine Leukocyte Esterase Negative (NEG) Urine RBC Occ /HPF (0-2) Urine WBC 1-4 /HPF (0-4) Urine Amorphous Sediment Present /HPF Urine Bacteria Few /HPF (0-FEW) Urine Hyaline Casts Many /HPF Urine Mucus Marked /LPF White Blood Count 10.6 x10^3/uL (4.0-11.0) Red Blood Count 5.22 x10^6/uL (4.30-5.70) Hemoglobin 14.0 g/dL (13.0-17.5) Hematocrit 44.8 % (39.0-53.0) Mean Corpuscular Volume 86 fL (79-100) Mean Corpuscular Hemoglobin 27 pg (25-35) Mean Corpuscular Hemoglobin Concent 31 g/dL (31-37) Red Cell Distribution Width 17.6 % (11.5-14.5) Platelet Count 153 x10^3/uL (140-400) Neutrophils (%) (Auto) 63 % (31-73) Lymphocytes (%) (Auto) 25 % (24-48) Monocytes (%) (Auto) 10 % (0-9) Eosinophils (%) (Auto) 2 % (0-3) Basophils (%) (Auto) 0 % (0-3) Neutrophils # (Auto) 6.7 x10^3/uL (1.8-7.7) Lymphocytes # (Auto) 2.7 x10^3/uL (1.0-4.8) Monocytes # (Auto) 1.1 x10^3/uL (0.0-1.1) Eosinophils # (Auto) 0.2 x10^3/uL (0.0-0.7) Basophils # (Auto) 0.0 x10^3/uL (0.0-0.2) D-Dimer (Aislinn) 1.16 ug/mlFEU (0.00-0.50) Sodium Level 138 mmol/L (136-145) Potassium Level 4.9 mmol/L (3.5-5.1) Chloride Level 101 mmol/L (98-107) Carbon Dioxide Level 35 mmol/L (21-32) Anion Gap 2 (6-14) Blood Urea Nitrogen 48 mg/dL (8-26) Creatinine 2.0 mg/dL (0.7-1.3) Estimated GFR (Cockcroft-Gault) 36.0 BUN/Creatinine Ratio 24 (6-20) Glucose Level 112 mg/dL (70-99) Lactic Acid Level 1.3 mmol/L (0.4-2.0) Calcium Level 8.8 mg/dL (8.5-10.1) Total Bilirubin 0.6 mg/dL (0.2-1.0) Aspartate Amino Transf (AST/SGOT) 22 U/L (15-37) Alanine Aminotransferase (ALT/SGPT) 19 U/L (16-63) Alkaline Phosphatase 89 U/L (46-116) Ammonia 13 mcmol/L (11-34) Creatine Kinase 45 U/L (39-308) Creatine Kinase MB (Mass) 0.9 ng/mL (0.0-3.6) Creatine Kinase MB Relative Index % (0-4) Troponin I Quantitative 0.252 ng/mL (0.000-0.055) 0.200 ng/mL (0.000-0.055) 0.172 ng/mL (0.000-0.055) EQ-Qbu-S-Type Natriuretic Peptide 1203 pg/mL (0-124) Total Protein 6.7 g/dL (6.4-8.2) Albumin 2.5 g/dL (3.4-5.0) Albumin/Globulin Ratio 0.6 (1.0-1.7) Lipase 98 U/L (73-393) Heparin Anti-Xa Act, Unfractionated < 0.10 IU/mL (0.30-0.70) Test 01/29/20 21:40 01/30/20 05:30 01/30/20 05:50 01/30/20 09:54 Glucose (Fingerstick) 134 mg/dL (70-99) 228 mg/dL (70-99) Sodium Level 140 mmol/L (136-145) Potassium Level 5.2 mmol/L (3.5-5.1) Chloride Level 101 mmol/L (98-107) Carbon Dioxide Level 34 mmol/L (21-32) Anion Gap 5 (6-14) Blood Urea Nitrogen 49 mg/dL (8-26) Creatinine 1.9 mg/dL (0.7-1.3) Estimated GFR (Cockcroft-Gault) 38.2 Glucose Level 134 mg/dL (70-99) Calcium Level 8.7 mg/dL (8.5-10.1) Thyroid Stimulating Hormone (TSH) 2.058 uIU/mL (0.358-3.74) White Blood Count 9.0 x10^3/uL (4.0-11.0) Red Blood Count 5.40 x10^6/uL (4.30-5.70) Hemoglobin 14.5 g/dL (13.0-17.5) Hematocrit 46.8 % (39.0-53.0) Mean Corpuscular Volume 87 fL (79-100) Mean Corpuscular Hemoglobin 27 pg (25-35) Mean Corpuscular Hemoglobin Concent 31 g/dL (31-37) Red Cell Distribution Width 17.8 % (11.5-14.5) Platelet Count 159 x10^3/uL (140-400) Neutrophils (%) (Auto) 58 % (31-73) Lymphocytes (%) (Auto) 28 % (24-48) Monocytes (%) (Auto) 11 % (0-9) Eosinophils (%) (Auto) 1 % (0-3) Basophils (%) (Auto) 1 % (0-3) Neutrophils # (Auto) 5.3 x10^3/uL (1.8-7.7) Lymphocytes # (Auto) 2.5 x10^3/uL (1.0-4.8) Monocytes # (Auto) 1.0 x10^3/uL (0.0-1.1) Eosinophils # (Auto) 0.1 x10^3/uL (0.0-0.7) Basophils # (Auto) 0.1 x10^3/uL (0.0-0.2) Heparin Anti-Xa Act, Unfractionated < 0.10 IU/mL (0.30-0.70) Triglycerides Level 97 mg/dL (0-150) Cholesterol Level 106 mg/dL (0-200) LDL Cholesterol, Calculated 59 mg/dL (0-100) VLDL Cholesterol, Calculated 19 mg/dL (0-40) Non-HDL Cholesterol Calculated 78 mg/dL (0-129) HDL Cholesterol 28 mg/dL (40-60) Cholesterol/HDL Ratio 3.8 Laboratory Tests Test 01/29/20 13:58 8/26/20 18:20 01/29/20 21:36 01/29/20 21:40 White Blood Count 10.6 x10^3/uL (4.0-11.0) Red Blood Count 5.22 x10^6/uL (4.30-5.70) Hemoglobin 14.0 g/dL (13.0-17.5) Hematocrit 44.8 % (39.0-53.0) Mean Corpuscular Volume 86 fL (79-100) Mean Corpuscular Hemoglobin 27 pg (25-35) Mean Corpuscular Hemoglobin Concent 31 g/dL (31-37) Red Cell Distribution Width 17.6 % (11.5-14.5) Platelet Count 153 x10^3/uL (140-400) Neutrophils (%) (Auto) 63 % (31-73) Lymphocytes (%) (Auto) 25 % (24-48) Monocytes (%) (Auto) 10 % (0-9) Eosinophils (%) (Auto) 2 % (0-3) Basophils (%) (Auto) 0 % (0-3) Neutrophils # (Auto) 6.7 x10^3/uL (1.8-7.7) Lymphocytes # (Auto) 2.7 x10^3/uL (1.0-4.8) Monocytes # (Auto) 1.1 x10^3/uL (0.0-1.1) Eosinophils # (Auto) 0.2 x10^3/uL (0.0-0.7) Basophils # (Auto) 0.0 x10^3/uL (0.0-0.2) D-Dimer (Aislinn) 1.16 ug/mlFEU (0.00-0.50) Sodium Level 138 mmol/L (136-145) Potassium Level 4.9 mmol/L (3.5-5.1) Chloride Level 101 mmol/L (98-107) Carbon Dioxide Level 35 mmol/L (21-32) Anion Gap 2 (6-14) Blood Urea Nitrogen 48 mg/dL (8-26) Creatinine 2.0 mg/dL (0.7-1.3) Estimated GFR (Cockcroft-Gault) 36.0 BUN/Creatinine Ratio 24 (6-20) Glucose Level 112 mg/dL (70-99) Lactic Acid Level 1.3 mmol/L (0.4-2.0) Calcium Level 8.8 mg/dL (8.5-10.1) Total Bilirubin 0.6 mg/dL (0.2-1.0) Aspartate Amino Transf (AST/SGOT) 22 U/L (15-37) Alanine Aminotransferase (ALT/SGPT) 19 U/L (16-63) Alkaline Phosphatase 89 U/L (46-116) Ammonia 13 mcmol/L (11-34) Creatine Kinase 45 U/L (39-308) Creatine Kinase MB (Mass) 0.9 ng/mL (0.0-3.6) Creatine Kinase MB Relative Index % (0-4) Troponin I Quantitative 0.252 ng/mL (0.000-0.055) 0.200 ng/mL (0.000-0.055) 0.172 ng/mL (0.000-0.055) RG-Crh-Q-Type Natriuretic Peptide 1203 pg/mL (0-124) Total Protein 6.7 g/dL (6.4-8.2) Albumin 2.5 g/dL (3.4-5.0) Albumin/Globulin Ratio 0.6 (1.0-1.7) Lipase 98 U/L (73-393) Heparin Anti-Xa Act, Unfractionated < 0.10 IU/mL (0.30-0.70) Glucose (Fingerstick) 134 mg/dL (70-99) Test 01/30/20 05:30 01/30/20 05:50 01/30/20 09:54 Sodium Level 140 mmol/L (136-145) Potassium Level 5.2 mmol/L (3.5-5.1) Chloride Level 101 mmol/L (98-107) Carbon Dioxide Level 34 mmol/L (21-32) Anion Gap 5 (6-14) Blood Urea Nitrogen 49 mg/dL (8-26) Creatinine 1.9 mg/dL (0.7-1.3) Estimated GFR (Cockcroft-Gault) 38.2 Glucose Level 134 mg/dL (70-99) Calcium Level 8.7 mg/dL (8.5-10.1) Thyroid Stimulating Hormone (TSH) 2.058 uIU/mL (0.358-3.74) White Blood Count 9.0 x10^3/uL (4.0-11.0) Red Blood Count 5.40 x10^6/uL (4.30-5.70) Hemoglobin 14.5 g/dL (13.0-17.5) Hematocrit 46.8 % (39.0-53.0) Mean Corpuscular Volume 87 fL (79-100) Mean Corpuscular Hemoglobin 27 pg (25-35) Mean Corpuscular Hemoglobin Concent 31 g/dL (31-37) Red Cell Distribution Width 17.8 % (11.5-14.5) Platelet Count 159 x10^3/uL (140-400) Neutrophils (%) (Auto) 58 % (31-73) Lymphocytes (%) (Auto) 28 % (24-48) Monocytes (%) (Auto) 11 % (0-9) Eosinophils (%) (Auto) 1 % (0-3) Basophils (%) (Auto) 1 % (0-3) Neutrophils # (Auto) 5.3 x10^3/uL (1.8-7.7) Lymphocytes # (Auto) 2.5 x10^3/uL (1.0-4.8) Monocytes # (Auto) 1.0 x10^3/uL (0.0-1.1) Eosinophils # (Auto) 0.1 x10^3/uL (0.0-0.7) Basophils # (Auto) 0.1 x10^3/uL (0.0-0.2) Heparin Anti-Xa Act, Unfractionated < 0.10 IU/mL (0.30-0.70) Triglycerides Level 97 mg/dL (0-150) Cholesterol Level 106 mg/dL (0-200) LDL Cholesterol, Calculated 59 mg/dL (0-100) VLDL Cholesterol, Calculated 19 mg/dL (0-40) Non-HDL Cholesterol Calculated 78 mg/dL (0-129) HDL Cholesterol 28 mg/dL (40-60) Cholesterol/HDL Ratio 3.8 Glucose (Fingerstick) 228 mg/dL (70-99) Assessment/Plan Assessment/Plan IMP DID-DAM-WRVW CARDIORENAL CKD STAGE 2 WITH CR OF 1.2 ACUTE HYPOXIC RESP FAILURE CHF - ACUTE ON CHRONIC DIASTOLIC MORBID OBESITY CHRONIC LE LYMPHEDEMA DM II PLAN AGREE WITH DIURESIS HOPEFULLY RENAL PERFUSION WILL IMPROVE RULING OUT COVID WILL FOLLOW JESÚS PLATT MD Jan 30, 2020 12:14
--- NOTE | 2020-01-30 12:31 | PDOC2 ---
WESLEY LANDRY SCIENTIFIC RESEARCH MANAGER 01/30/20 1231: CARDIAC CONSULT DATE OF CONSULT Date of Consult DATE: 01/30/20 TIME: 12:07 REASON FOR CONSULT Reason for Consult: CHF, elevated DDIMER REFERRING PHYSICIAN Referring Physician: Hari SOURCE Source: Chart review, Patient HISTORY OF PRESENT ILLNESS HISTORY OF PRESENT ILLNESS This is a 49 yo male admitted for complains of shortness of breath. He has been noted with sleep apnea in the past, could not afford bipap,, known CHF and severe morbid obesity. He is noncompliant with his diet and fluid intake. He takes about 160 mg total lasix daily and has not ran out of any medications. Limited functional capacity given his enormous size. Denies any fever of chills but in the last 1-2 days he has been feeling more SOA, + for orthopnea and has been feeling more tight around his wt and legs. Denies any chest pain, no palpitations. No nausea vomiting. Drinks about 2L of pepsi a day and continues to smoke tobacco. PAST MEDICAL HISTORY Past Medical History Cardiovascular: CHF, HTN, Hyperlipidemia, Other (chronic lymphedema) Pulmonary: Pneumonia, Other (JEANNE) Musculoskeletal: Osteoarthritis Renal/: UTI, CKD Endocrine: Diabetes Dermatology: Other (venous dermatitis) PAST SURGICAL HISTORY Past Surgical History finger surgery; scrotal I & D FAMILY HISTORY Family History: Hypertension SOCIAL HISTORY Smoke: <1 pack per day ALCOHOL: none Drugs: None Lives: with Family (niece) CURRENT MEDICATIONS CURRENT MEDICATIONS Current Medications Medications (Trade) Dose Ordered Sig/Michelle Route PRN Reason Start Time Stop Time Status Last Admin Dose Admin Aspirin (Brijesh Aspirin) 325 mg 1X ONCE PO 01/29/20 12:30 01/29/20 12:31 DC 01/29/20 14:30 Nystatin (Nystop) 1 jason 1X ONCE TP 01/29/20 13:45 01/29/20 13:46 DC 01/29/20 16:50 Heparin Sodium (Porcine) (Heparin Sodium) 4,000 unit 1X ONCE IV 01/29/20 15:45 01/29/20 15:53 DC 01/29/20 16:55 Heparin Sodium/ Dextrose 250 ml @ 0 mls/hr CONT PRN IV PER PROTOCOL 01/29/20 15:45 01/30/20 09:10 Heparin Sodium (Porcine) (Heparin Sodium) 6,000 unit PRN Q6HRS PRN IV FOR UFH LEVEL LESS THAN 0.2 01/29/20 15:45 01/30/20 09:10 Bumetanide (Bumex) 1 mg 1X ONCE IV 01/29/20 15:45 01/29/20 15:49 DC 01/29/20 16:54 Carvedilol (Coreg) 25 mg BIDWMEALS PO 01/30/20 08:00 01/30/20 09:13 Hydralazine HCl (Apresoline) 50 mg TID PO 01/29/20 21:00 01/30/20 09:14 Lisinopril (Prinivil) 20 mg DAILY PO 01/30/20 09:00 01/30/20 09:14 Potassium Chloride (Klor-Con) 40 meq DAILYWBKFT PO 01/30/20 08:00 01/30/20 09:13 Bumetanide (Bumex) 1 mg BID92 IV 01/29/20 20:00 01/30/20 09:13 ALLERGIES ALLERGIES: Coded Allergies: morphine (Verified Allergy, Intermediate, 09/29/18) Bleach (Sodium Hypochlorite) (Verified Adverse Reaction, Intermediate, 02/13/18) ROS Review of System 14 point ROS evaluated with pertinent positives noted per HPI PHYSICAL EXAM General: Alert, Oriented X3, Cooperative, No acute distress HEENT: Atraumatic, Mucous membr. moist/pink Lungs: Other (dimnished) Heart: Regular rate (SR), Other (distant heart sounds ) Abdomen: Soft, Other (obese) Extremities: Other (chronic LE lymphedema) Skin: Other (LE venous dermatitis) Neuro: Normal speech, Sensation intact MUSCULOSKELETAL: Osteoarthritic changes both hands VITALS/I&O VITALS/I&O: Vital Signs Date Time Temp Pulse Resp B/P (MAP) Pulse Ox O2 Delivery O2 Flow Rate FiO2 01/30/20 09:14 64 123/50 01/30/20 07:00 97.7 16 98 Nasal Cannula 2.0 97.7 I & O 01/29/20 01/29/20 01/30/20 15:00 23:00 07:00 Intake Total 480 ml 200 ml Output Total 300 ml 500 ml Balance 180 ml -300 ml LABS Lab: Laboratory Tests Test 01/29/20 13:58 01/29/20 18:20 01/29/20 21:36 01/29/20 21:40 White Blood Count 10.6 x10^3/uL (4.0-11.0) Red Blood Count 5.22 x10^6/uL (4.30-5.70) Hemoglobin 14.0 g/dL (13.0-17.5) Hematocrit 44.8 % (39.0-53.0) Mean Corpuscular Volume 86 fL (79-100) Mean Corpuscular Hemoglobin 27 pg (25-35) Mean Corpuscular Hemoglobin Concent 31 g/dL (31-37) Red Cell Distribution Width 17.6 % (11.5-14.5) H Platelet Count 153 x10^3/uL (140-400) Neutrophils (%) (Auto) 63 % (31-73) Lymphocytes (%) (Auto) 25 % (24-48) Monocytes (%) (Auto) 10 % (0-9) H Eosinophils (%) (Auto) 2 % (0-3) Basophils (%) (Auto) 0 % (0-3) Neutrophils # (Auto) 6.7 x10^3/uL (1.8-7.7) Lymphocytes # (Auto) 2.7 x10^3/uL (1.0-4.8) Monocytes # (Auto) 1.1 x10^3/uL (0.0-1.1) Eosinophils # (Auto) 0.2 x10^3/uL (0.0-0.7) Basophils # (Auto) 0.0 x10^3/uL (0.0-0.2) D-Dimer (Aislinn) 1.16 ug/mlFEU (0.00-0.50) H Sodium Level 138 mmol/L (136-145) Potassium Level 4.9 mmol/L (3.5-5.1) Chloride Level 101 mmol/L (98-107) Carbon Dioxide Level 35 mmol/L (21-32) H Anion Gap 2 (6-14) L Blood Urea Nitrogen 48 mg/dL (8-26) H Creatinine 2.0 mg/dL (0.7-1.3) H Estimated GFR (Cockcroft-Gault) 36.0 BUN/Creatinine Ratio 24 (6-20) H Glucose Level 112 mg/dL (70-99) H Lactic Acid Level 1.3 mmol/L (0.4-2.0) Calcium Level 8.8 mg/dL (8.5-10.1) Total Bilirubin 0.6 mg/dL (0.2-1.0) Aspartate Amino Transferase (AST) 22 U/L (15-37) Alanine Aminotransferase (ALT) 19 U/L (16-63) Alkaline Phosphatase 89 U/L (46-116) Ammonia 13 mcmol/L (11-34) Creatine Kinase 45 U/L (39-308) Creatine Kinase MB (Mass) 0.9 ng/mL (0.0-3.6) Creatine Kinase MB Relative Index % (0-4) Troponin I Quantitative 0.252 ng/mL (0.000-0.055) 0.200 ng/mL (0.000-0.055) 0.172 ng/mL (0.000-0.055) OF-Son-R-Type Natriuretic Peptide 1203 pg/mL (0-124) H Total Protein 6.7 g/dL (6.4-8.2) Albumin 2.5 g/dL (3.4-5.0) L Albumin/Globulin Ratio 0.6 (1.0-1.7) L Lipase 98 U/L (73-393) Heparin Anti-Xa Act, Unfractionated < 0.10 IU/mL (0.30-0.70) L Glucose (Fingerstick) 134 mg/dL (70-99) H Test 01/30/20 05:30 01/30/20 05:50 01/30/20 09:54 Sodium Level 140 mmol/L (136-145) Potassium Level 5.2 mmol/L (3.5-5.1) H Chloride Level 101 mmol/L (98-107) Carbon Dioxide Level 34 mmol/L (21-32) H Anion Gap 5 (6-14) L Blood Urea Nitrogen 49 mg/dL (8-26) H Creatinine 1.9 mg/dL (0.7-1.3) H Estimated GFR (Cockcroft-Gault) 38.2 Glucose Level 134 mg/dL (70-99) H Calcium Level 8.7 mg/dL (8.5-10.1) Thyroid Stimulating Hormone (TSH) 2.058 uIU/mL (0.358-3.74) White Blood Count 9.0 x10^3/uL (4.0-11.0) Red Blood Count 5.40 x10^6/uL (4.30-5.70) Hemoglobin 14.5 g/dL (13.0-17.5) Hematocrit 46.8 % (39.0-53.0) Mean Corpuscular Volume 87 fL (79-100) Mean Corpuscular Hemoglobin 27 pg (25-35) Mean Corpuscular Hemoglobin Concent 31 g/dL (31-37) Red Cell Distribution Width 17.8 % (11.5-14.5) H Platelet Count 159 x10^3/uL (140-400) Neutrophils (%) (Auto) 58 % (31-73) Lymphocytes (%) (Auto) 28 % (24-48) Monocytes (%) (Auto) 11 % (0-9) H Eosinophils (%) (Auto) 1 % (0-3) Basophils (%) (Auto) 1 % (0-3) Neutrophils # (Auto) 5.3 x10^3/uL (1.8-7.7) Lymphocytes # (Auto) 2.5 x10^3/uL (1.0-4.8) Monocytes # (Auto) 1.0 x10^3/uL (0.0-1.1) Eosinophils # (Auto) 0.1 x10^3/uL (0.0-0.7) Basophils # (Auto) 0.1 x10^3/uL (0.0-0.2) Heparin Anti-Xa Act, Unfractionated < 0.10 IU/mL (0.30-0.70) L Triglycerides Level 97 mg/dL (0-150) Cholesterol Level 106 mg/dL (0-200) LDL Cholesterol, Calculated 59 mg/dL (0-100) VLDL Cholesterol, Calculated 19 mg/dL (0-40) Non-HDL Cholesterol Calculated 78 mg/dL (0-129) HDL Cholesterol 28 mg/dL (40-60) L Cholesterol/HDL Ratio 3.8 Glucose (Fingerstick) 228 mg/dL (70-99) H Laboratory Tests 01/29/20 13:58 01/30/20 05:50 Laboratory Tests 01/29/20 13:58 01/30/20 05:30 ECHOCARDIOGRAM ECHOCARDIOGRAM <Conclusion> Technically difficult study. The left ventricle is normal size. The left ventricular systolic function is normal. The Ejection Fraction is 60-65%. There is mild concentric left ventricular hypertrophy. Doppler and Color Flow revealed no significant aortic regurgitation. There is no significant aortic valvular stenosis. Doppler and Color-flow revealed trace mitral regurgitation. Doppler and Color Flow revealed trace to mild tricuspid regurgitation with an estimated PAP of 42 mmHg. DATE: 08/16/19 1514 ASSESSMENT/PLAN ASSESSMENT/PLAN 1. Acute on chronic diastolic CHF: contributors uncontrolled JEANNE, diet noncompliance, morbid obesity 2. ADINA: prerenal, nephrology following 3. HTN: controlled 4. HLP 5. DM2: no home med 6. Noncompliance: drinks about 2L of regular pepsi a day 7. COPD with tobaccoism 8. JEANNE; could not afford bipap and no O2 supplement at home 9. Severely morbid obesity 10. Elevated troponin: type 2 demand mediated peaked trop at 0.2 CP free no acute EKG changes 11. Chronic LE lymphedema/venous dermatitis Recommendations 1. Recent TTE reviewed normal EF. With cardiac risk factors would consider referral to [facility] for outpt stress test given his enormous size. Continue with ASA and secondary prevention measures 2. Discussed diet and fluid compliance. Smoking cessation. 3. DC heparin. Consider home O2.at hs SHIRA BONNER MD 01/30/202128: CARDIAC CONSULT ASSESSMENT/PLAN ASSESSMENT/PLAN Patient seen and examined. Agree with FISH DRIER's assessment and plan. Continue diuresis for ac on chr diast HF Slightly elevated trop prob demand ischemia Doubt ACS - stop heparin Recent 2D echo showed normal LVF. Consider outpatient ischemic evaluation possibly with Dobutamine VALENTINE Thank you for your consultation WESLEY LANDRY APRN Jan 30, 2020 12:31 SHIRA BONNER MD Jan 30, 2020 21:29
[2020-01-30] MEDS: ASPIRIN ENTERIC COATED 325 MG TABLET.DR. PO SCH (13:28)
--- NOTE | 2020-01-30 14:05 | NUR ---
Wound Care: Patient seen per wound care consult. patient is known to us from previous admissions. Patient is covid pending. Spoke with RN and assessed the photograph taken. Recommendations for Moisturizer to BLE, apply medi-honey to Xeroform gauze, ABD pad, and kerlix. Change on Monday. RN has ordered a bariatric bed. Dressing change instructions left with RN. Will follow up for reassessment on .
--- NOTE | 2020-01-30 17:21 | NUR ---
SW following. Spoke with RN and reviewed chart. Pt on 2l 02. Pt COVID negative. SW attempted to call into pt's room to coordinate care, no answer. Pt on a heparin drip. SW to continue following.
--- NOTE | 2020-01-30 17:35 | NUR ---
Have received patient to room 262. Patient oriented to unit. Meal tray ordered.
[2020-01-31] VITALS (7 sets, daily range): BP systolic 83–154; BP diastolic 54–84
[2020-01-31 02:08] LABS: HEMOGLOBIN A1C 7.8 % (4.8-5.6)
[2020-01-31] MEDS: INSULIN LISPRO 300 UNITS/3 ML VIAL. SQ SCH ×3 (08:00→16:59)
[2020-01-31 08:41] LABS: CALCIUM 8.6 mg/dL (8.5-10.1); POTASSIUM 5.1 mmol/L (3.5-5.1)
[2020-01-31 08:42] LABS: CHOLESTEROL/HDL RATIO 3.3
--- NOTE | 2020-01-31 08:46 | PDOC ---
WESLEY LANDRY MUTTON PUNCHER 01/31/20 0846: CARDIO Progress Notes Date and Time Date of Service 01/31/2020 Time of Evaluation 1030 Subjective Subjective: No Chest Pain, No shortness of breath, No Palpitations Vitals Vitals Vital Signs Date Time Temp Pulse Resp B/P (MAP) Pulse Ox O2 Delivery O2 Flow Rate FiO2 01/31/20 07:00 97.5 67 26 83/55 (64) 90 Nasal Cannula 3.0 97.5 Weight Weight [ ] Input and Output Intake and Output Intake and Output 01/31/20 07:00 Intake Total 3200 ml Output Total 645 ml Balance 2555 ml Intake Oral 3200 ml Output Urine Total 645 ml # Voids 3 Laboratory Labs Laboratory Tests Test 01/30/20 09:54 01/30/20 15:10 01/30/20 16:18 01/30/20 20:36 Glucose (Fingerstick) 228 mg/dL (70-99) 126 mg/dL (70-99) 167 mg/dL (70-99) Heparin Anti-Xa Act, Unfractionated < 0.10 IU/mL (0.30-0.70) Test 01/31/20 07:35 01/31/20 07:55 Glucose (Fingerstick) 146 mg/dL (70-99) Sodium Level 137 mmol/L (136-145) Potassium Level 5.1 mmol/L (3.5-5.1) Chloride Level 100 mmol/L (98-107) Carbon Dioxide Level 36 mmol/L (21-32) Anion Gap 1 (6-14) Blood Urea Nitrogen 51 mg/dL (8-26) Creatinine 2.0 mg/dL (0.7-1.3) Estimated GFR (Cockcroft-Gault) 36.0 Glucose Level 146 mg/dL (70-99) Calcium Level 8.6 mg/dL (8.5-10.1) Triglycerides Level 73 mg/dL (0-150) Cholesterol Level 100 mg/dL (0-200) LDL Cholesterol, Calculated 55 mg/dL (0-100) VLDL Cholesterol, Calculated 15 mg/dL (0-40) Non-HDL Cholesterol Calculated 70 mg/dL (0-129) HDL Cholesterol 30 mg/dL (40-60) Cholesterol/HDL Ratio 3.3 Microbiology Micro Microbiology 8/26/20 Blood Culture - Preliminary, Resulted NO GROWTH AFTER 1 DAY Physical Exam HEENT: Neck Supple W Full Motion Chest: Symmetric LUNGS: Other (diminished) Heart: RRR (SR) Abdomen: Other (obese) Extremities: Other (anasarca) Neurology: alert, oriented, follow commands Assessment Assessment 1. Acute on chronic diastolic CHF: contributors uncontrolled JEANNE, diet noncompliance, morbid obesity. Covid Neg 2. ADINA: prerenal, nephrology following 3. HTN: controlled 4. HLP 5. DM2: no home med 6. Noncompliance: drinks about 2L of regular pepsi a day 7. COPD with tobaccoism 8. JEANNE; could not afford bipap and no O2 supplement at home 9. Severely morbid obesity 10. Elevated troponin: type 2 demand mediated peaked trop at 0.2 CP free no acute EKG changes 11. Chronic LE lymphedema/venous dermatitis Recommendations 1. Recent TTE reviewed normal EF. Continue with ASA and secondary prevention measures 2. Discussed diet and fluid compliance. Smoking cessation. 3. Consider home O2.at hs 4. Will consider for outpt dobutamine stress with VALENTINE pending pt compliance. Pt has had multiple cancelled appt in our office. Justicifation of Admission Dx: Justifications for Admission: Justification of Admission Dx: Yes SHIRA BONNER MD 01/31/20 1421: CARDIO Progress Notes Assessment Assessment Patient seen and examined. Agree with REPAIRER GENERAL's assessment and plan. Acute on chronic diastolic heart failure better compensated. Slightly elevated trop prob demand ischemia Doubt ACS - stop heparin Recent 2D echo showed normal LVF. We will consider outpatient ischemic evaluation possibly with Dobutamine VALENTINE WESLEY LANDRY APRN Jan 31, 2020 08:46 SHIRA BONNER MD Jan 31, 2020 14:21
[2020-01-31] MEDS: BUMETANIDE 1 MG/4 ML VIAL. IV SCH ×2 (08:53→14:18)
[2020-01-31] MEDS: ASPIRIN ENTERIC COATED 325 MG TABLET.DR. PO SCH (08:53)
[2020-01-31] MEDS: LISINOPRIL 20 MG TABLET PO SCH (08:54)
[2020-01-31] MEDS: CARVEDILOL 12.5 MG TABLET. PO SCH ×2 (08:54→17:10)
[2020-01-31] MEDS: POTASSIUM CHLORIDE 20 MEQ TABLET.ER. PO SCH (08:55)
--- NOTE | 2020-01-31 08:56 | PDOC ---
PULMONARY PROGRESS NOTES DATE: 01/31/20 TIME: 08:56 Subjective Pt. is resting on 3 liters Denies SOA or cough Vitals Vital Signs Date Time Temp Pulse Resp B/P (MAP) Pulse Ox O2 Delivery O2 Flow Rate FiO2 01/31/20 08:54 67 134/54 01/31/20 07:00 97.5 26 90 Nasal Cannula 3.0 97.5 ROS: No Nausea, No Chest Pain, No Abdominal Pain, No Increase Cough General: Alert, No acute distress HEENT: Other Lungs: Clear, Other Cardiovascular: S1, S2 Abdomen: Soft, Non-tender, Other (obese ) Extremities: Other Labs Laboratory Tests Test 01/29/20 11:57 01/29/20 13:58 01/29/20 14:35 01/29/20 18:20 Urine Collection Type Unknown Urine Color Yellow Urine Clarity Clear Urine pH 5.0 (<5.0-8.0) Urine Specific [place] 1.010 (1.000-1.030) Urine Protein 30 mg/dL (NEG-TRACE) Urine Glucose (UA) Negative mg/dL (NEG) Urine Ketones (Stick) Negative mg/dL (NEG) Urine Blood Negative (NEG) Urine Nitrite Negative (NEG) Urine Bilirubin Negative (NEG) Urine Urobilinogen Dipstick 1.0 mg/dL (0.2 mg/dL) Urine Leukocyte Esterase Negative (NEG) Urine RBC Occ /HPF (0-2) Urine WBC 1-4 /HPF (0-4) Urine Amorphous Sediment Present /HPF Urine Bacteria Few /HPF (0-FEW) Urine Hyaline Casts Many /HPF Urine Mucus Marked /LPF White Blood Count 10.6 x10^3/uL (4.0-11.0) Red Blood Count 5.22 x10^6/uL (4.30-5.70) Hemoglobin 14.0 g/dL (13.0-17.5) Hematocrit 44.8 % (39.0-53.0) Mean Corpuscular Volume 86 fL (79-100) Mean Corpuscular Hemoglobin 27 pg (25-35) Mean Corpuscular Hemoglobin Concent 31 g/dL (31-37) Red Cell Distribution Width 17.6 % (11.5-14.5) Platelet Count 153 x10^3/uL (140-400) Neutrophils (%) (Auto) 63 % (31-73) Lymphocytes (%) (Auto) 25 % (24-48) Monocytes (%) (Auto) 10 % (0-9) Eosinophils (%) (Auto) 2 % (0-3) Basophils (%) (Auto) 0 % (0-3) Neutrophils # (Auto) 6.7 x10^3/uL (1.8-7.7) Lymphocytes # (Auto) 2.7 x10^3/uL (1.0-4.8) Monocytes # (Auto) 1.1 x10^3/uL (0.0-1.1) Eosinophils # (Auto) 0.2 x10^3/uL (0.0-0.7) Basophils # (Auto) 0.0 x10^3/uL (0.0-0.2) D-Dimer ([place]) 1.16 ug/mlFEU (0.00-0.50) Sodium Level 138 mmol/L (136-145) Potassium Level 4.9 mmol/L (3.5-5.1) Chloride Level 101 mmol/L (98-107) Carbon Dioxide Level 35 mmol/L (21-32) Anion Gap 2 (6-14) Blood Urea Nitrogen 48 mg/dL (8-26) Creatinine 2.0 mg/dL (0.7-1.3) Estimated GFR (Cockcroft-Gault) 36.0 BUN/Creatinine Ratio 24 (6-20) Glucose Level 112 mg/dL (70-99) Lactic Acid Level 1.3 mmol/L (0.4-2.0) Calcium Level 8.8 mg/dL (8.5-10.1) Total Bilirubin 0.6 mg/dL (0.2-1.0) Aspartate Amino Transf (AST/SGOT) 22 U/L (15-37) Alanine Aminotransferase (ALT/SGPT) 19 U/L (16-63) Alkaline Phosphatase 89 U/L (46-116) Ammonia 13 mcmol/L (11-34) Creatine Kinase 45 U/L (39-308) Creatine Kinase MB (Mass) 0.9 ng/mL (0.0-3.6) Creatine Kinase MB Relative Index % (0-4) Troponin I Quantitative 0.252 ng/mL (0.000-0.055) 0.200 ng/mL (0.000-0.055) SU-Guh-J-Type Natriuretic Peptide 1203 pg/mL (0-124) Total Protein 6.7 g/dL (6.4-8.2) Albumin 2.5 g/dL (3.4-5.0) Albumin/Globulin Ratio 0.6 (1.0-1.7) Lipase 98 U/L (73-393) Coronavirus (PCR) Not detected (Not Detected) Test 01/29/20 21:36 01/29/20 21:40 01/30/20 05:30 01/30/20 05:50 Heparin Anti-Xa Act, Unfractionated < 0.10 IU/mL (0.30-0.70) < 0.10 IU/mL (0.30-0.70) Troponin I Quantitative 0.172 ng/mL (0.000-0.055) Glucose (Fingerstick) 134 mg/dL (70-99) Sodium Level 140 mmol/L (136-145) Potassium Level 5.2 mmol/L (3.5-5.1) Chloride Level 101 mmol/L (98-107) Carbon Dioxide Level 34 mmol/L (21-32) Anion Gap 5 (6-14) Blood Urea Nitrogen 49 mg/dL (8-26) Creatinine 1.9 mg/dL (0.7-1.3) Estimated GFR (Cockcroft-Gault) 38.2 Glucose Level 134 mg/dL (70-99) Hemoglobin A1c 7.8 % (4.8-5.6) Calcium Level 8.7 mg/dL (8.5-10.1) Thyroid Stimulating Hormone (TSH) 2.058 uIU/mL (0.358-3.74) White Blood Count 9.0 x10^3/uL (4.0-11.0) Red Blood Count 5.40 x10^6/uL (4.30-5.70) Hemoglobin 14.5 g/dL (13.0-17.5) Hematocrit 46.8 % (39.0-53.0) Mean Corpuscular Volume 87 fL (79-100) Mean Corpuscular Hemoglobin 27 pg (25-35) Mean Corpuscular Hemoglobin Concent 31 g/dL (31-37) Red Cell Distribution Width 17.8 % (11.5-14.5) Platelet Count 159 x10^3/uL (140-400) Neutrophils (%) (Auto) 58 % (31-73) Lymphocytes (%) (Auto) 28 % (24-48) Monocytes (%) (Auto) 11 % (0-9) Eosinophils (%) (Auto) 1 % (0-3) Basophils (%) (Auto) 1 % (0-3) Neutrophils # (Auto) 5.3 x10^3/uL (1.8-7.7) Lymphocytes # (Auto) 2.5 x10^3/uL (1.0-4.8) Monocytes # (Auto) 1.0 x10^3/uL (0.0-1.1) Eosinophils # (Auto) 0.1 x10^3/uL (0.0-0.7) Basophils # (Auto) 0.1 x10^3/uL (0.0-0.2) Triglycerides Level 97 mg/dL (0-150) Cholesterol Level 106 mg/dL (0-200) LDL Cholesterol, Calculated 59 mg/dL (0-100) VLDL Cholesterol, Calculated 19 mg/dL (0-40) Non-HDL Cholesterol Calculated 78 mg/dL (0-129) HDL Cholesterol 28 mg/dL (40-60) Cholesterol/HDL Ratio 3.8 Test 01/30/20 09:54 01/30/20 15:10 01/30/20 16:18 01/30/20 20:36 Glucose (Fingerstick) 228 mg/dL (70-99) 126 mg/dL (70-99) 167 mg/dL (70-99) Heparin Anti-Xa Act, Unfractionated < 0.10 IU/mL (0.30-0.70) Test 01/31/20 07:35 01/31/20 07:55 Glucose (Fingerstick) 146 mg/dL (70-99) Sodium Level 137 mmol/L (136-145) Potassium Level 5.1 mmol/L (3.5-5.1) Chloride Level 100 mmol/L (98-107) Carbon Dioxide Level 36 mmol/L (21-32) Anion Gap 1 (6-14) Blood Urea Nitrogen 51 mg/dL (8-26) Creatinine 2.0 mg/dL (0.7-1.3) Estimated GFR (Cockcroft-Gault) 36.0 Glucose Level 146 mg/dL (70-99) Calcium Level 8.6 mg/dL (8.5-10.1) Triglycerides Level 73 mg/dL (0-150) Cholesterol Level 100 mg/dL (0-200) LDL Cholesterol, Calculated 55 mg/dL (0-100) VLDL Cholesterol, Calculated 15 mg/dL (0-40) Non-HDL Cholesterol Calculated 70 mg/dL (0-129) HDL Cholesterol 30 mg/dL (40-60) Cholesterol/HDL Ratio 3.3 Laboratory Tests Test 01/30/20 09:54 01/30/20 15:10 01/30/20 16:18 01/30/20 20:36 Glucose (Fingerstick) 228 mg/dL (70-99) 126 mg/dL (70-99) 167 mg/dL (70-99) Heparin Anti-Xa Act, Unfractionated < 0.10 IU/mL (0.30-0.70) Test 01/31/20 07:35 01/31/20 07:55 Glucose (Fingerstick) 146 mg/dL (70-99) Sodium Level 137 mmol/L (136-145) Potassium Level 5.1 mmol/L (3.5-5.1) Chloride Level 100 mmol/L (98-107) Carbon Dioxide Level 36 mmol/L (21-32) Anion Gap 1 (6-14) Blood Urea Nitrogen 51 mg/dL (8-26) Creatinine 2.0 mg/dL (0.7-1.3) Estimated GFR (Cockcroft-Gault) 36.0 Glucose Level 146 mg/dL (70-99) Calcium Level 8.6 mg/dL (8.5-10.1) Triglycerides Level 73 mg/dL (0-150) Cholesterol Level 100 mg/dL (0-200) LDL Cholesterol, Calculated 55 mg/dL (0-100) VLDL Cholesterol, Calculated 15 mg/dL (0-40) Non-HDL Cholesterol Calculated 70 mg/dL (0-129) HDL Cholesterol 30 mg/dL (40-60) Cholesterol/HDL Ratio 3.3 Medications Active Scripts Medications Dose Route/Sig Max Daily Dose Days Date Category [Fluconazole] 100 MG Tablet 400 Mg PO DAILY 10 08/19/19 Rx Hydralazine Hcl 50 Mg Tablet 50 Mg PO TID 90 08/19/19 Rx K-Tab ER (Potassium Chloride) 20 Meq Tablet.er 20 Meq PO BID 30 08/19/19 Rx Lasix (Furosemide) 80 Mg Tablet 1 Tab PO BID 30 08/19/19 Rx One-A-Day Essential (Multivitamin) 1 Each Tablet 1 Tab PO DAILY 30 08/15/19 Reported Metformin Hcl 500 Mg Tablet 2 Tab PO BIDWMEALS 08/15/19 Reported Carvedilol (Carvedilol) 12.5 Mg Tablet 2 Tab PO BIDWMEALS 08/15/19 Reported Lisinopril 20 Mg Tablet 1 Tab PO DAILY 08/15/19 Reported Impression . IMPRESSION: 1. Acute hypoxic respiratory failure, likely secondary to acute on chronic congestive heart failure in a patient who has ejection fraction of 45%. He probably also has coexisting right heart failure as well. 2. Underlying morbid obesity with suspected obesity hypoventilation syndrome and obstructive sleep apnea. His BMI is 76. He has elevated bicarb suggesting chronic hypercapnia. 3. Chronic lymphedema of the lower extremity/venous stasis. 4. Low clinical suspicion for COVID.--- COVID negative 5. Abnormal D-dimer level of 1.1. Venous Doppler was negative. Clinically, low suspicion for thromboembolic disease. Plan . RECOMMENDATIONS: Continue supplemental oxygen, now at 3 liters continue diuresis with Bumex Follow cardiology recs COVID is negative Follow chest x-ray post-diuresis. May benefit from sleep study as an outpatient. 6-minute walk test at the time of discharge DVT/GI PPX D/W DAVID FREEDMAN MD Jan 31, 2020 08:56
--- NOTE | 2020-01-31 08:58 | PDOC ---
PROGRESS NOTES Date of Service: DATE: 01/31/20 TIME: 08:57 Subjective Subjective no new problems Objective Objective Vital Signs Date Time Temp Pulse Resp B/P (MAP) Pulse Ox O2 Delivery O2 Flow Rate FiO2 01/31/20 08:54 67 134/54 01/31/20 07:00 97.5 26 90 Nasal Cannula 3.0 97.5 Intake and Output 01/31/20 07:00 Intake Total 3200 ml Output Total 645 ml Balance 2555 ml Intake Oral 3200 ml Output Urine Total 645 ml # Voids 3 Physical Exam Abdomen: Soft, Other (obese) Heart: Regular rate (SR), Other (distant heart sounds ) Extremities: Other (chronic LE lymphedema) General: Alert, Oriented X3, Cooperative, No acute distress HEENT: Atraumatic, Mucous membr. moist/pink Lungs: Other (dimnished) MUSCULOSKELETAL: Osteoarthritic changes both hands Neuro: Normal speech, Sensation intact Psych/Mental Status: Other (FLAT ANXIOUS AFFECT) Skin: Other (LE venous dermatitis) Diagnosis Problem List Problems Medical Problems: (1) Acute exacerbation of CHF (congestive heart failure) Status: Acute (2) Elevated d-dimer Status: Acute (3) Elevated troponin Status: Acute (4) Obesity Status: Acute (5) Suspected 2019 novel coronavirus infection Status: Acute (6) Yeast dermatitis Status: Acute Assessment Assessment Problems Medical Problems: (1) Acute exacerbation of CHF (congestive heart failure) Status: Acute (2) Elevated d-dimer Status: Acute (3) Elevated troponin Status: Acute (4) Obesity Status: Acute (5) Suspected 2019 novel coronavirus infection Status: Acute (6) Yeast dermatitis Status: Acute FINAL IMPRESSION: 1. Anasarca. 2. Acute on chronic diastolic heart failure. 3. Chronic obstructive pulmonary disease. 4. Obstructive sleep apnea. 5. Morbid obesity. 6. Diabetes. 7. Chronic kidney disease. 8. Smoking. 9. Noncompliance. 10. 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 PLAN: covid -neg IV bumex renal consult appreciated Cr 2.0 PT/OT spoke with pul yesterday DVT prevention pt/ot At this time, was admit to hospital, IV Bumex. We will hold off on metformin secondary to worsening kidney failure. We will get a Pulmonary, Cardiology consult. Because of elevated D-dimer, patient was put on a heparin drip. The patient is too big to go for CT angiogram of the chest and we will have Pulmonary and Cardiology consult and see. IV Lasix or Bumex for the present time and blood sugars and monitor the INR and PTT. Plan Plan of Care Problems Medical Problems: (1) Acute exacerbation of CHF (congestive heart failure) Status: Acute (2) Elevated d-dimer Status: Acute (3) Elevated troponin Status: Acute (4) Obesity Status: Acute (5) Suspected 2019 novel coronavirus infection Status: Acute (6) Yeast dermatitis Status: Acute Comment Review of Relevant I have reviewed the following items adolfo (where applicable) has been applied. Labs Laboratory Tests Test 01/30/20 09:54 01/30/20 15:10 01/30/20 16:18 01/30/20 20:36 Glucose (Fingerstick) 228 mg/dL (70-99) 126 mg/dL (70-99) 167 mg/dL (70-99) Heparin Anti-Xa Act, Unfractionated < 0.10 IU/mL (0.30-0.70) Test 01/31/20 07:35 01/31/20 07:55 Glucose (Fingerstick) 146 mg/dL (70-99) Sodium Level 137 mmol/L (136-145) Potassium Level 5.1 mmol/L (3.5-5.1) Chloride Level 100 mmol/L (98-107) Carbon Dioxide Level 36 mmol/L (21-32) Anion Gap 1 (6-14) Blood Urea Nitrogen 51 mg/dL (8-26) Creatinine 2.0 mg/dL (0.7-1.3) Estimated GFR (Cockcroft-Gault) 36.0 Glucose Level 146 mg/dL (70-99) Calcium Level 8.6 mg/dL (8.5-10.1) Triglycerides Level 73 mg/dL (0-150) Cholesterol Level 100 mg/dL (0-200) LDL Cholesterol, Calculated 55 mg/dL (0-100) VLDL Cholesterol, Calculated 15 mg/dL (0-40) Non-HDL Cholesterol Calculated 70 mg/dL (0-129) HDL Cholesterol 30 mg/dL (40-60) Cholesterol/HDL Ratio 3.3 Microbiology 01/29/20 Blood Culture - Preliminary, Resulted NO GROWTH AFTER 1 DAY Medications Current Medications Aspirin (Ecotrin) 325 mg DAILYWBKFT PO Last administered on 01/31/20at 08:53; Start 01/30/20 at 13:00 Lisinopril (Prinivil) 20 mg DAILY PO Last administered on 01/31/20at 08:54; Start 01/30/20 at 09:00 Vitals/I & O Vital Sign - Last 24 Hours 01/30/20 01/30/20 01/30/20 01/30/20 09:13 09:14 09:14 11:00 Temp 97.8 97.8 Pulse 64 64 64 103 Resp 16 B/P (MAP) 123/50 123/50 123/50 168/102 (124) Pulse Ox 98 O2 Delivery Nasal Cannula O2 Flow Rate 2.0 01/30/20 01/30/20 01/30/20 01/30/20 13:28 14:53 17:35 18:21 Temp 98.2 97.5 98.2 97.5 Pulse 103 108 80 80 Resp 19 B/P (MAP) 168/102 120/67 (84) 137/73 (94) 137/73 Pulse Ox 92 97 O2 Delivery Nasal Cannula Nasal Cannula O2 Flow Rate 2.0 2.0 01/30/20 01/30/20 01/30/20 01/30/20 19:00 19:30 20:48 23:23 Temp 98.0 97.9 98.0 97.9 Pulse 65 65 79 Resp 23 B/P (MAP) 117/55 (75) 117/55 133/65 (87) Pulse Ox 97 99 O2 Delivery Nasal Cannula Nasal Cannula Nasal Cannula O2 Flow Rate 2.0 3.0 2.0 01/31/20 01/31/20 01/31/20 01/31/20 03:27 07:00 08:54 08:54 Temp 98.1 97.5 98.1 97.5 Pulse 56 67 67 67 Resp 26 B/P (MAP) 132/70 (90) 83/55 (64) 134/54 134/54 Pulse Ox 98 90 O2 Delivery Nasal Cannula Nasal Cannula O2 Flow Rate 2.0 3.0 01/31/20 08:54 Pulse 67 B/P (MAP) 134/54 Intake and Output 01/30/20 01/30/20 01/31/20 15:00 23:00 07:00 Intake Total 720 ml 240 ml 2240 ml Output Total 300 ml 345 ml Balance 720 ml -60 ml 1895 ml Justifications for Admission Other Justification ANT LICEA MD Jan 31, 2020 08:58
--- NOTE | 2020-01-31 11:38 | PDOC ---
Renal-Progress Notes Subjective Notes Notes STATES LESS SOB History of Present Illness Hx of present illness STABLE Vitals Vitals Vital Signs Date Time Temp Pulse Resp B/P (MAP) Pulse Ox O2 Delivery O2 Flow Rate FiO2 01/31/20 09:31 134/54 (80) 01/31/20 08:54 67 01/31/20 07:00 97.5 26 90 Nasal Cannula 3.0 97.5 Weight Weight [ ] I.O. Intake and Output Intake and Output 01/31/20 07:00 Intake Total 3200 ml Output Total 645 ml Balance 2555 ml Intake Oral 3200 ml Output Urine Total 645 ml # Voids 3 Labs Labs Laboratory Tests Test 01/30/20 15:10 01/30/20 16:18 01/30/20 20:36 01/31/20 07:35 Heparin Anti-Xa Act, Unfractionated < 0.10 IU/mL (0.30-0.70) Glucose (Fingerstick) 126 mg/dL (70-99) 167 mg/dL (70-99) 146 mg/dL (70-99) Test 01/31/20 07:55 Sodium Level 137 mmol/L (136-145) Potassium Level 5.1 mmol/L (3.5-5.1) Chloride Level 100 mmol/L (98-107) Carbon Dioxide Level 36 mmol/L (21-32) Anion Gap 1 (6-14) Blood Urea Nitrogen 51 mg/dL (8-26) Creatinine 2.0 mg/dL (0.7-1.3) Estimated GFR (Cockcroft-Gault) 36.0 Glucose Level 146 mg/dL (70-99) Calcium Level 8.6 mg/dL (8.5-10.1) Magnesium Level 1.7 mg/dL (1.8-2.4) Triglycerides Level 73 mg/dL (0-150) Cholesterol Level 100 mg/dL (0-200) LDL Cholesterol, Calculated 55 mg/dL (0-100) VLDL Cholesterol, Calculated 15 mg/dL (0-40) Non-HDL Cholesterol Calculated 70 mg/dL (0-129) HDL Cholesterol 30 mg/dL (40-60) Cholesterol/HDL Ratio 3.3 Thyroid Stimulating Hormone (TSH) 2.059 uIU/mL (0.358-3.74) Micro Micro Microbiology 8/26/20 Blood Culture - Preliminary, Resulted NO GROWTH AFTER 1 DAY Review of Systems Constitutional: yes: alert, oriented Ears/Nose/Throat: Yes: no symptom reported Eyes: Yes: no symptom reported Pulmonary: Yes dyspnea Cardiovascular: Yes edema Gastrointestional: Yes: no symptom reported Genitourinary: Yes: no symptom reported Musculoskeletal: Yes: muscle stiffness Skin: Yes lesions Psychiatric/Neurological: Yes: no symptom reported Endocrine: Yes: no symptom reported Physical Exam General Appearance: no apparent distress Skin: warm Respiratory: decreased breath sounds Heart: S1S2 Abdomen: soft, bowel sounds present Genitourinary: bladder flat Extremities: pulses present, edema Neurology: alert, oriented Musculoskeletal: Osteoarthritis Assessment Assessment IMP [id number] CARDIORENAL-CR OF 2.0 CKD STAGE 2 WITH CR OF 1.2 ACUTE HYPOXIC RESP FAILURE CHF - ACUTE ON CHRONIC DIASTOLIC MORBID OBESITY CHRONIC LE LYMPHEDEMA DM II PLAN AGREE WITH DIURESIS HOPEFULLY RENAL PERFUSION WILL IMPROVE WILL FOLLOW JESÚS PLATT MD Jan 31, 2020 11:38
--- NOTE | 2020-01-31 12:03 | NUR ---
SS following for discharge planning. SS reviewed pt chart and discussed with pt RN. Pt is from home and is currently requiring oxygen. Pt has no home oxygen and may need six minute walk prior to returning home. COVID19 negative. Pt on IV Bumex. SS will continue to follow for discharge planning.
[2020-01-31] MEDS: MINERAL OIL/PETROLATUM TOPICAL CREAM 113GM JAR. TP SCH ×2 (13:23→20:33)
[2020-01-31] MEDS: DICLOFENAC SODIUM 1% TOPICAL GEL 100GM TUBE. TP SCH ×2 (13:23→20:33)
--- NOTE | 2020-01-31 13:28 | CONS ---
DATE OF CONSULTATION: 01/31/2020 ATTENDING PHYSICIAN: Allison Kay MD REASON FOR CONSULTATION: The patient was seen at the request of Dr. Kay for rehab evaluation. HISTORY OF PRESENT ILLNESS: This is a 49-year-old male, disabled [employer]. The patient lives at home with his niece, one step to enter the house. He usually gets up and walks to the bathroom. Other than that, mostly in bed secondary to shortness of breath and fatigue and knee and back pain. PAST MEDICAL HISTORY: Significant for hypertension, congestive heart failure, hyperlipidemia, diabetes, sleep apnea, chronic lower extremity lymphedema. FAMILY HISTORY: Positive for diabetes, heart disease, and hypertension. He still smokes; smoked for about 30 years 1 pack per day. The patient has KNOWN ALLERGIC TO BLEACH AND MORPHINE. He was admitted on 01/29/2020 with anasarca and shortness of breath. His last admission at this medical center is about 6 months ago. They recommended CPAP testing and putting on that one, but he did not follow through it. The patient was noted in the Emergency Room with BNP elevated, troponin is borderline and his weight 241 kilograms. The patient is being treated for respiratory failure. He was COVID negative. PHYSICAL EXAMINATION: Physical exam today revealed a middle-aged male. He is alert, oriented to time, place and person, follows commands appropriately, moves all 4 extremities voluntarily, where he had 4+/5 grade muscle strength, deep tendon reflexes are decreased to absent overall. He had decreased touch and pinprick sensation over a stocking-glove distribution. He had lymphedema of both lower extremities with dressing to skin lesion, left leg. He also had dry scaly skin of his extremities. He had crepitus on range of motion of both knee joints. The patient is independent rolling from side to side. I have not tested his transfers or ambulation skills at this time, but he walked with a standby supervision with physical therapy for about 50 feet. His oxygen saturation dropped to 80% despite him receiving oxygen by nasal cannula. He gets tired easily. ASSESSMENT: A middle-aged male with anasarca, acute on chronic diastolic congestive heart failure, chronic obstructive pulmonary disease, obstructive sleep apnea, respiratory failure, morbid obesity, diabetes mellitus with peripheral neuropathy, chronic kidney disease, continued smoking, noncompliance, chronic skin infection from lymphedema, degenerative joint disease of both knees with pain. RECOMMENDATION: Agree with the plan for physical therapy and occupational therapy. He may benefit from transfer to [facility] care unit or inpatient rehab unit if he is agreeable to it. Dr. Kay, I appreciate asking me to participate in the care of this interesting patient. I will be glad to follow him with you on as-needed basis. I have offered him to inject his knees, but at this time, he is not interested. He might also benefit if he goes home from using a roller walker and home health followup. RAMYA LIRA MD DR: RAMAN/trevor JOB#: [id number] / [id number]
[2020-01-31] MEDS ORDERED: MAGNESIUM SULFATE 2GM 50 ML IV ONE (13:30)
--- NOTE | 2020-01-31 17:24 | NUR ---
Acknowledge RD consult for wounds ordered 01/30; please refer to RD assessment completed 01/29 for full nutritional assessment and interventions. Spoke w/RN in room 262, pt is eating 100% of meals and tolerating. He agrees to try Eloy B ID for wound healing; each supplement provides 300 mg Vit C, 2.5 grams collagen protein, 14 grams amino acids, and ~95 calories. REC MVI as well for wound healing. Will continue to monitor and follow up w/pt per scheduled RD F/U and/or when appropriate
[2020-02-01 03:35] VITALS: BP 123/55
[2020-02-01 04:10] LABS: HEMOGLOBIN A1C 7.7 % (4.8-5.6)
[2020-02-01 06:33] LABS: CALCIUM 8.9 mg/dL (8.5-10.1); CREATININE 1.8 mg/dL (0.7-1.3); GFR 40.6; POTASSIUM 5.4 mmol/L (3.5-5.1)
[2020-02-01 07:00] VITALS: BP 186/106
[2020-02-01] MEDS: POTASSIUM CHLORIDE 20 MEQ TABLET.ER. PO SCH (08:00)
[2020-02-01] MEDS: INSULIN LISPRO 300 UNITS/3 ML VIAL. SQ SCH ×3 (08:00→17:00)
[2020-02-01] MEDS: MINERAL OIL/PETROLATUM TOPICAL CREAM 113GM JAR. TP SCH ×2 (09:01→21:03)
[2020-02-01] MEDS: DICLOFENAC SODIUM 1% TOPICAL GEL 100GM TUBE. TP SCH ×2 (09:01→21:03)
[2020-02-01] MEDS: LISINOPRIL 20 MG TABLET PO SCH (09:01)
[2020-02-01] MEDS: ASPIRIN ENTERIC COATED 325 MG TABLET.DR. PO SCH (09:02)
[2020-02-01] MEDS: CARVEDILOL 12.5 MG TABLET. PO SCH ×2 (09:02→17:39)
[2020-02-01] MEDS: MULTIVITAMIN with MINERAL TABLET. PO SCH (09:02)
[2020-02-01] MEDS: BUMETANIDE 1 MG/4 ML VIAL. IV SCH ×2 (09:03→14:18)
--- NOTE | 2020-02-01 10:38 | PDOC ---
IM PROGRESS NOTES- Subjective Subjective No complaints of pain or dyspnea. Patient has been very sleepy all morning. He also stated that he vomited once this morning. Denies any abdominal pain, constipation or diarrhea. Objective Vitals/I&O Vital Signs Date Time Temp Pulse Resp B/P (MAP) Pulse Ox O2 Delivery O2 Flow Rate FiO2 02/01/20 09:02 107 186/106 02/01/20 07:00 97.3 24 95 Venturi Mask 97.3 01/31/20 23:10 3.0 I & O 01/31/20 01/31/20 02/01/20 15:00 23:00 07:00 Intake Total 1280 ml 240 ml 0 ml Output Total 850 ml 1100 ml 900 ml Balance 430 ml -860 ml -900 ml Physical Exam Physical Exam General appearance -he is very sleepy,ill appearing, and in no distress Mental Status -very sleepy Head - normal Chest -decreased breath sounds at bases Heart - S1 and S2 normal Abdomen - soft, nontender, bowel sounds present Neurological -sleepy and weak Extremities -3-4+ pedal edema and anasarca Skin - warm and dry Labs Laboratory Tests Test 01/31/20 11:56 01/31/20 16:33 01/31/20 21:18 02/01/20 05:45 Glucose (Fingerstick) 168 mg/dL (70-99) H 139 mg/dL (70-99) H 141 mg/dL (70-99) H Sodium Level 138 mmol/L (136-145) Potassium Level 5.4 mmol/L (3.5-5.1) H Chloride Level 100 mmol/L (98-107) Carbon Dioxide Level 37 mmol/L (21-32) H Anion Gap 1 (6-14) L Blood Urea Nitrogen 50 mg/dL (8-26) H Creatinine 1.8 mg/dL (0.7-1.3) H Estimated GFR (Cockcroft-Gault) 40.6 Glucose Level 119 mg/dL (70-99) H Calcium Level 8.9 mg/dL (8.5-10.1) Magnesium Level 2.0 mg/dL (1.8-2.4) Test 02/01/20 08:10 Glucose (Fingerstick) 121 mg/dL (70-99) H Laboratory Tests 02/01/20 05:45 Meds Current Medications Medications (Trade) Dose Ordered Sig/Michelle Route PRN Reason Start Time Stop Time Status Last Admin Dose Admin Bumetanide (Bumex) 2 mg [id number] IV 01/31/20 14:00 02/01/20 09:03 Magnesium Sulfate 50 ml @ 25 mls/hr 1X ONCE IV 01/31/20 13:30 01/31/20 15:29 DC 01/31/20 14:17 Diclofenac Sodium (Voltaren) 1 jason BID TP 01/31/20 14:00 02/01/20 09:01 Multi-Ingredient Ointment (Hydrocerin Cream) 1 jason BID TP 01/31/20 14:00 02/01/20 09:01 Multivitamins (Thera M Plus) 1 tab DAILY PO 02/01/20 09:00 02/01/20 09:02 Assessment Assessment Problems Medical Problems: (1) Acute exacerbation of CHF (congestive heart failure) Status: Acute (2) Elevated d-dimer Status: Acute (3) Elevated troponin Status: Acute (4) Obesity Status: Acute (5) Suspected 2019 novel coronavirus infection Status: Acute (6) Yeast dermatitis Status: Acute FINAL IMPRESSION: 1. Anasarca. 2. Acute on chronic diastolic heart failure. 3. Chronic obstructive pulmonary disease. 4. Obstructive sleep apnea. 5. Morbid obesity. 6. Diabetes. 7. Chronic kidney disease. 8. Smoking. 9. Noncompliance. 10. 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 PLAN: Acute on chronic diastolic congestive heart failure-creatinine is 1.8. Continue IV Bumex 2 mg twice daily D-dimer 1.1 and elevated but venous Doppler negative and low suspicion for thrombotic events. Patient is currently on subcu Lovenox for DVT prophylaxis. IV heparin drip has been discontinued. Recheck labs in a.m. For details please refer to the orders. Vomiting-Zofran, pantoprazole Hyperkalemia-discontinue potassium supplements Sleep apnea continue BiPAP Diabetes mellitus-hemoglobin A1c is 7.7 Plan Plan For more details regarding further plans, please refer to the orders. Justifications for Admission Other Justification FEMI SAMPSON MD Feb 01, 2020 10:38
[2020-02-01 11:00] VITALS: BP 150/79
--- NOTE | 2020-02-01 11:11 | PDOC ---
PROGRESS NOTES Date of Service DATE: 02/01/20 TIME: 11:09 Subjective Subjective No new complaints. Objective Objective Vital Signs Date Time Temp Pulse Resp B/P (MAP) Pulse Ox O2 Delivery O2 Flow Rate FiO2 02/01/20 09:02 107 186/106 02/01/20 07:00 97.3 24 95 Venturi Mask 97.3 01/31/20 23:10 3.0 Intake and Output 02/01/20 07:00 Intake Total 1520 ml Output Total 2850 ml Balance -1330 ml Intake Oral 1520 ml Output Urine Total 2850 ml # Bowel Movements 1 Physical Exam Physical Exam He is resting comfortable supine in bed and had dressing to his left leg and he continues with lymphedema and generalized muscle weakness and stiffness of his knees and hips. Assessment Assessment Problems Medical Problems: (1) Acute exacerbation of CHF (congestive heart failure) Status: Acute (2) Elevated d-dimer Status: Acute (3) Elevated troponin Status: Acute (4) Obesity Status: Acute (5) Suspected 2019 novel coronavirus infection Status: Acute (6) Yeast dermatitis Status: Acute Plan Plan of Care To get him up as tolerated. Comment Review of Relevant I have reviewed the following items adolfo (where applicable) has been applied. Labs Laboratory Tests Test 01/30/20 15:10 01/30/20 16:18 01/30/20 20:36 01/31/20 07:35 Heparin Anti-Xa Act, Unfractionated < 0.10 IU/mL (0.30-0.70) Glucose (Fingerstick) 126 mg/dL (70-99) 167 mg/dL (70-99) 146 mg/dL (70-99) Test 01/31/20 07:55 01/31/20 11:56 01/31/20 16:33 01/31/20 21:18 Sodium Level 137 mmol/L (136-145) Potassium Level 5.1 mmol/L (3.5-5.1) Chloride Level 100 mmol/L (98-107) Carbon Dioxide Level 36 mmol/L (21-32) Anion Gap 1 (6-14) Blood Urea Nitrogen 51 mg/dL (8-26) Creatinine 2.0 mg/dL (0.7-1.3) Estimated GFR (Cockcroft-Gault) 36.0 Glucose Level 146 mg/dL (70-99) Hemoglobin A1c 7.7 % (4.8-5.6) Calcium Level 8.6 mg/dL (8.5-10.1) Magnesium Level 1.7 mg/dL (1.8-2.4) Triglycerides Level 73 mg/dL (0-150) Cholesterol Level 100 mg/dL (0-200) LDL Cholesterol, Calculated 55 mg/dL (0-100) VLDL Cholesterol, Calculated 15 mg/dL (0-40) Non-HDL Cholesterol Calculated 70 mg/dL (0-129) HDL Cholesterol 30 mg/dL (40-60) Cholesterol/HDL Ratio 3.3 Thyroid Stimulating Hormone (TSH) 2.059 uIU/mL (0.358-3.74) Glucose (Fingerstick) 168 mg/dL (70-99) 139 mg/dL (70-99) 141 mg/dL (70-99) Test 02/01/20 05:45 02/01/20 08:10 Sodium Level 138 mmol/L (136-145) Potassium Level 5.4 mmol/L (3.5-5.1) Chloride Level 100 mmol/L (98-107) Carbon Dioxide Level 37 mmol/L (21-32) Anion Gap 1 (6-14) Blood Urea Nitrogen 50 mg/dL (8-26) Creatinine 1.8 mg/dL (0.7-1.3) Estimated GFR (Cockcroft-Gault) 40.6 Glucose Level 119 mg/dL (70-99) Calcium Level 8.9 mg/dL (8.5-10.1) Magnesium Level 2.0 mg/dL (1.8-2.4) Glucose (Fingerstick) 121 mg/dL (70-99) Laboratory Tests Test 01/31/20 11:56 01/31/20 16:33 01/31/20 21:18 02/01/20 05:45 Glucose (Fingerstick) 168 mg/dL (70-99) 139 mg/dL (70-99) 141 mg/dL (70-99) Sodium Level 138 mmol/L (136-145) Potassium Level 5.4 mmol/L (3.5-5.1) Chloride Level 100 mmol/L (98-107) Carbon Dioxide Level 37 mmol/L (21-32) Anion Gap 1 (6-14) Blood Urea Nitrogen 50 mg/dL (8-26) Creatinine 1.8 mg/dL (0.7-1.3) Estimated GFR (Cockcroft-Gault) 40.6 Glucose Level 119 mg/dL (70-99) Calcium Level 8.9 mg/dL (8.5-10.1) Magnesium Level 2.0 mg/dL (1.8-2.4) Test 02/01/20 08:10 Glucose (Fingerstick) 121 mg/dL (70-99) Microbiology 01/29/20 Blood Culture - Preliminary, Resulted NO GROWTH AFTER 2 DAYS Medications Current Medications Aspirin (Brijesh Aspirin) 325 mg 1X ONCE PO Last administered on 01/29/20at 14:30; Start 01/29/20 at 12:30; Stop 01/29/20 at 12:31; Status DC Nystatin (Nystop) 1 jason 1X ONCE TP Last administered on 01/29/20at 16:50; Start 01/29/20 at 13:45; Stop 01/29/20 at 13:46; Status DC Bumetanide (Bumex) 0.5 mg 1X ONCE IV ; Start 01/29/20 at 15:45; Stop 01/29/20 at 15:44; Status DC Heparin Sodium (Porcine) (Heparin Sodium) 4,000 unit 1X ONCE IV Last administered on 01/29/20at 16:55; Start 01/29/20 at 15:45; Stop 01/30/20 at 12:19; Status DC Heparin Sodium/ Dextrose 250 ml @ 0 mls/hr CONT PRN IV PER PROTOCOL Last admi nistered on 01/30/20at 09:10; Start 01/29/20 at 15:45; Stop 01/30/20 at 12:19; Status DC Heparin Sodium (Porcine) (Heparin Sodium) 6,000 unit PRN Q6HRS PRN IV FOR UFH LEVEL LESS THAN 0.2 Last administered on 01/30/20at 09:10; Start 01/29/20 at 15:45; Stop 01/30/20 at 12:19; Status DC Ondansetron HCl (Zofran) 4 mg PRN Q8HRS PRN IV NAUSEA/VOMITING; Start 01/29/20 at 15:45; Stop 01/30/20 at 15:44; Status DC Bumetanide (Bumex) 1 mg 1X ONCE IV Last administered on 01/29/20 16:54; Start 01/29/20 at 15:45; Stop 01/29/20 at 15:49; Status DC Carvedilol (Coreg) 25 mg BIDWMEALS PO Last administered on 02/01/20 09:02; Start 01/30/20 at 08:00 Hydralazine HCl (Apresoline) 50 mg TID PO Last administered on 02/01/20 09:02; Start 01/29/20 at 21:00 Lisinopril (Prinivil) 20 mg DAILY PO Last administered on 02/01/20 09:01; Start 01/30/20 at 09:00 Potassium Chloride (Klor-Con) 40 meq DAILYWBKFT PO Last administered on 01/31/20 08:55; Start 01/30/20 at 08:00 Bumetanide (Bumex) 1 mg BID92 IV Last administered on 01/31/20at 08:53; Start 01/29/20 at 20:00; Stop 01/31/20 at 11:39; Status DC Insulin Human Lispro (HumaLOG) 0-5 UNITS TIDWMEALS SQ Last administered on 01/31/20at 12:37; Start 01/30/20 at 08:00 Dextrose (Dextrose 50%-Water Syringe) 12.5 gm PRN Q15MIN PRN IV SEE COMMENTS; Start 01/29/20 at 20:15 Aspirin (Ecotrin) 325 mg DAILYWBKFT PO Last administered on 02/01/20at 09:02; Start 01/30/20 at 13:00 Enoxaparin Sodium (Lovenox Per Pharmacy Prophylaxis Dosing) 1 each PRN DAILY PRN MC SEE COMMENTS; Start 01/31/20 at 09:00 Enoxaparin Sodium (Lovenox 60mg Syringe) 60 mg Q12HR SQ Last administered on 02/01/20 09:01; Start 01/31/20 at 10:00 Bumetanide (Bumex) 2 mg BID92 IV Last administered on 02/01/20at 09:03; Start 01/31/20 at 14:00 Magnesium Sulfate 50 ml @ 25 mls/hr 1X ONCE IV Last administered on 01/31/20at 14:17; Start 01/31/20 at 13:30; Stop 01/31/20 at 15:29; Status DC Diclofenac Sodium (Voltaren) 1 jason BID TP Last administered on 02/01/20at 09:01; Start 01/31/20 at 14:00 Multi-Ingredient Ointment (Hydrocerin Cream) 1 jason BID TP Last administered on 02/01/20at 09:01; Start 01/31/20 at 14:00 Multivitamins (Thera M Plus) 1 tab DAILY PO Last administered on 02/01/20at 09:02; Start 02/01/20 at 09:00 Ondansetron HCl (Zofran) 4 mg PRN Q6HRS PRN IVP NAUSEA/VOMITING; Start 02/01/20 at 11:15 Active Scripts Active [Fluconazole] 100 MG Tablet 400 Mg PO DAILY 10 Days Hydralazine Hcl 50 Mg Tablet 50 Mg PO TID 90 Days K-Tab ER (Potassium Chloride) 20 Meq Tablet.er 20 Meq PO BID 30 Days Lasix (Furosemide) 80 Mg Tablet 1 Tab PO BID 30 Days Reported One-A-Day Essential (Multivitamin) 1 Each Tablet 1 Tab PO DAILY 30 Days Metformin Hcl 500 Mg Tablet 2 Tab PO BIDWMEALS Carvedilol (Carvedilol) 12.5 Mg Tablet 2 Tab PO BIDWMEALS Lisinopril 20 Mg Tablet 1 Tab PO DAILY Vitals/I & O Vital Sign - Last 24 Hours 01/31/20 01/31/20 01/31/20 01/31/20 14:19 15:03 17:10 19:06 Temp 98.4 98.4 Pulse 91 57 57 Resp 24 B/P (MAP) 144/78 144/78 (100) 144/78 Pulse Ox 90 O2 Delivery Nasal Cannula Nasal Cannula O2 Flow Rate 3.0 3.0 01/31/20 01/31/20 01/31/20 02/01/20 19:35 20:33 23:10 03:35 Temp 97.8 97.7 97.4 97.8 97.7 97.4 Pulse 61 61 60 110 Resp 22 22 24 B/P (MAP) 133/60 (84) 133/60 154/84 (107) 123/55 (77) Pulse Ox 92 96 74 O2 Delivery Nasal Cannula Nasal Cannula Room Air O2 Flow Rate 3.0 3.0 02/01/20 02/01/20 02/01/2020 03:50 07:00 09:01 09:02 Temp 97.3 97.3 Pulse 107 107 107 Resp 24 B/P (MAP) 186/106 (132) 186/106 186/106 Pulse Ox 90 95 O2 Delivery Venturi Mask Venturi Mask 02/01/20 09:02 Pulse 107 B/P (MAP) 186/106 Intake and Output 01/31/20 01/31/20 02/01/20 15:00 23:00 07:00 Intake Total 1280 ml 240 ml 0 ml Output Total 850 ml 1100 ml 900 ml Balance 430 ml -860 ml -900 ml Justifications for Admission Other Justification RAMYA LIRA MD Feb 01, 2020 11:11
[2020-02-01] MEDS ORDERED: ONDANSETRON PF 4 MG/2 ML VIAL. IVP PRN (11:15)
--- NOTE | 2020-02-01 11:49 | PDOC ---
PULMONARY PROGRESS NOTES DATE: 02/01/20 TIME: 11:45 Subjective Pt experienced hypoxia overnight placed on venti-mask, now on 5 liters NC and lethargic minimally responsive to painful stimulus on exam Vitals Vital Signs Date Time Temp Pulse Resp B/P (MAP) Pulse Ox O2 Delivery O2 Flow Rate FiO2 02/01/20 09:02 107 186/106 02/01/20 08:00 Nasal Cannula 5.0 02/01/20 07:00 97.3 24 95 97.3 ROS: No Nausea, No Chest Pain, No Abdominal Pain, No Increase Cough General: Lethargic HEENT: Other Lungs: Clear Cardiovascular: S1, S2 Abdomen: Soft, Non-tender, Other (obese ) Extremities: Other (edema BLE ) Labs Laboratory Tests Test 01/30/20 15:10 01/30/20 16:18 01/30/20 20:36 01/31/20 07:35 Heparin Anti-Xa Act, Unfractionated < 0.10 IU/mL (0.30-0.70) Glucose (Fingerstick) 126 mg/dL (70-99) 167 mg/dL (70-99) 146 mg/dL (70-99) Test 01/31/20 07:55 01/31/20 11:56 01/31/20 16:33 01/31/20 21:18 Sodium Level 137 mmol/L (136-145) Potassium Level 5.1 mmol/L (3.5-5.1) Chloride Level 100 mmol/L (98-107) Carbon Dioxide Level 36 mmol/L (21-32) Anion Gap 1 (6-14) Blood Urea Nitrogen 51 mg/dL (8-26) Creatinine 2.0 mg/dL (0.7-1.3) Estimated GFR (Cockcroft-Gault) 36.0 Glucose Level 146 mg/dL (70-99) Hemoglobin A1c 7.7 % (4.8-5.6) Calcium Level 8.6 mg/dL (8.5-10.1) Magnesium Level 1.7 mg/dL (1.8-2.4) Triglycerides Level 73 mg/dL (0-150) Cholesterol Level 100 mg/dL (0-200) LDL Cholesterol, Calculated 55 mg/dL (0-100) VLDL Cholesterol, Calculated 15 mg/dL (0-40) Non-HDL Cholesterol Calculated 70 mg/dL (0-129) HDL Cholesterol 30 mg/dL (40-60) Cholesterol/HDL Ratio 3.3 Thyroid Stimulating Hormone (TSH) 2.059 uIU/mL (0.358-3.74) Glucose (Fingerstick) 168 mg/dL (70-99) 139 mg/dL (70-99) 141 mg/dL (70-99) Test 02/01/20 05:45 02/01/20 08:10 Sodium Level 138 mmol/L (136-145) Potassium Level 5.4 mmol/L (3.5-5.1) Chloride Level 100 mmol/L (98-107) Carbon Dioxide Level 37 mmol/L (21-32) Anion Gap 1 (6-14) Blood Urea Nitrogen 50 mg/dL (8-26) Creatinine 1.8 mg/dL (0.7-1.3) Estimated GFR (Cockcroft-Gault) 40.6 Glucose Level 119 mg/dL (70-99) Calcium Level 8.9 mg/dL (8.5-10.1) Magnesium Level 2.0 mg/dL (1.8-2.4) Glucose (Fingerstick) 121 mg/dL (70-99) Laboratory Tests Test 01/31/20 11:56 01/31/20 16:33 01/31/20 21:18 02/01/20 05:45 Glucose (Fingerstick) 168 mg/dL (70-99) 139 mg/dL (70-99) 141 mg/dL (70-99) Sodium Level 138 mmol/L (136-145) Potassium Level 5.4 mmol/L (3.5-5.1) Chloride Level 100 mmol/L (98-107) Carbon Dioxide Level 37 mmol/L (21-32) Anion Gap 1 (6-14) Blood Urea Nitrogen 50 mg/dL (8-26) Creatinine 1.8 mg/dL (0.7-1.3) Estimated GFR (Cockcroft-Gault) 40.6 Glucose Level 119 mg/dL (70-99) Calcium Level 8.9 mg/dL (8.5-10.1) Magnesium Level 2.0 mg/dL (1.8-2.4) Test 02/01/20 08:10 Glucose (Fingerstick) 121 mg/dL (70-99) Medications Active Scripts Medications Dose Route/Sig Max Daily Dose Days Date Category [Fluconazole] 100 MG Tablet 400 Mg PO DAILY 10 08/19/19 Rx Hydralazine Hcl 50 Mg Tablet 50 Mg PO TID 90 08/19/19 Rx K-Tab ER (Potassium Chloride) 20 Meq Tablet.er 20 Meq PO BID 30 08/19/19 Rx Lasix (Furosemide) 80 Mg Tablet 1 Tab PO BID 30 08/19/19 Rx One-A-Day Essential (Multivitamin) 1 Each Tablet 1 Tab PO DAILY 30 08/15/19 Reported Metformin Hcl 500 Mg Tablet 2 Tab PO BIDWMEALS 08/15/19 Reported Carvedilol (Carvedilol) 12.5 Mg Tablet 2 Tab PO BIDWMEALS 08/15/19 Reported Lisinopril 20 Mg Tablet 1 Tab PO DAILY 08/15/19 Reported Impression . IMPRESSION: 1. Acute hypoxic respiratory failure, likely secondary to acute on chronic congestive heart failure in a patient who has ejection fraction of 45%. He probably also has coexisting right heart failure as well. 2. Underlying morbid obesity with suspected obesity hypoventilation syndrome and obstructive sleep apnea. His BMI is 76. He has elevated bicarb suggesting chronic hypercapnia. 3. Chronic lymphedema of the lower extremity/venous stasis. 4. Low clinical suspicion for COVID.--- COVID negative 5. Abnormal D-dimer level of 1.1. Venous Doppler was negative. Clinically, low suspicion for thromboembolic disease. Plan . RECOMMENDATIONS: Continue supplemental oxygen, now at 5 liters, lethargic today, stat ABG obtained, place patient on BiPAP, repeat ABG continue diuresis with Bumex Follow cardiology recs COVID is negative Follow chest x-ray post-diuresis. May benefit from sleep study as an outpatient. 6-minute walk test at the time of discharge HTN per cardiology and PCP DVT/GI PPX D/W RN DAVID URBINA MD Feb 01, 2020 11:49
[2020-02-01] MEDS: PANTOPRAZOLE 40 MG TABLET.DR. PO SCH (12:28)
[2020-02-01 13:01] LABS: BASE EXCESS ABG 5 mmol/L (-3-3); HCO3 ABG 39 mmol/L (21-28); PO2 ABG 68 mmHg (75-108); SAT O2 ABG 89 % (92-99)
[2020-02-01 13:06] LABS: PCO2 ABG 116 mmHg (35-46)
[2020-02-01 13:07] LABS: FIO2 ABG 40
--- NOTE | 2020-02-01 13:18 | PDOC ---
Renal-Progress Notes Subjective Notes Notes CONFUSED History of Present Illness Hx of present illness NO CHANGE Vitals Vitals Vital Signs Date Time Temp Pulse Resp B/P (MAP) Pulse Ox O2 Delivery O2 Flow Rate FiO2 02/01/20 11:00 97.1 72 24 150/79 (102) 93 Nasal Cannula 5.0 97.1 Weight Weight [ ] I.O. Intake and Output Intake and Output 02/01/20 07:00 Intake Total 1520 ml Output Total 2850 ml Balance -1330 ml Intake Oral 1520 ml Output Urine Total 2850 ml # Bowel Movements 1 Labs Labs Laboratory Tests Test 01/31/20 16:33 01/31/20 21:18 02/01/20 05:45 02/01/20 08:10 Glucose (Fingerstick) 139 mg/dL (70-99) 141 mg/dL (70-99) 121 mg/dL (70-99) Sodium Level 138 mmol/L (136-145) Potassium Level 5.4 mmol/L (3.5-5.1) Chloride Level 100 mmol/L (98-107) Carbon Dioxide Level 37 mmol/L (21-32) Anion Gap 1 (6-14) Blood Urea Nitrogen 50 mg/dL (8-26) Creatinine 1.8 mg/dL (0.7-1.3) Estimated GFR (Cockcroft-Gault) 40.6 Glucose Level 119 mg/dL (70-99) Calcium Level 8.9 mg/dL (8.5-10.1) Magnesium Level 2.0 mg/dL (1.8-2.4) Test 02/01/20 11:59 02/01/20 12:52 Glucose (Fingerstick) 168 mg/dL (70-99) O2 Saturation 89 % (92-99) Arterial Blood pH 7.14 (7.35-7.45) Arterial Blood pCO2 at Patient Temp 116 mmHg (35-46) Arterial Blood pO2 at Patient Temp 68 mmHg (75-108) Arterial Blood HCO3 39 mmol/L (21-28) Arterial Blood Base Excess 5 mmol/L (-3-3) FiO2 40 Micro Micro Microbiology 01/29/20 Blood Culture - Preliminary, Resulted NO GROWTH AFTER 2 DAYS Review of Systems Constitutional: yes: other (CONFUSED) Ears/Nose/Throat: Yes: no symptom reported Eyes: Yes: no symptom reported Gastrointestional: Yes: no symptom reported Genitourinary: Yes: no symptom reported Psychiatric/Neurological: Yes: no symptom reported Endocrine: Yes: no symptom reported Physical Exam General Appearance: no apparent distress Skin: warm Respiratory: decreased breath sounds Heart: S1S2 Abdomen: soft, bowel sounds present Genitourinary: bladder flat Extremities: pulses present, edema Neurology: alert, oriented, follow commands Musculoskeletal: Osteoarthritis Assessment Assessment IMP HYPERKALEMIA [id number] CARDIORENAL-CR OF 2.0 CKD STAGE 2 WITH CR OF 1.2 ACUTE HYPOXIC RESP FAILURE CHF - ACUTE ON CHRONIC DIASTOLIC MORBID OBESITY CHRONIC LE LYMPHEDEMA DM II PLAN AGREE WITH DIURESIS FOR NEG FLUID BALANCE HOPEFULLY RENAL PERFUSION WILL IMPROVE SUPPLEMENT O2 AND PULM SUPPORT POOR PROGNOSIS WILL FOLLOW JESÚS PLATT MD Feb 01, 2020 13:18
[2020-02-01 15:00] VITALS: BP 169/82
[2020-02-01 16:30] LABS: BASE EXCESS COOX 9 mmol/L (-3-3); HCO3 COOX 41 mmol/L (21-28); METHEMOGLOBIN 0.1 % (0.0-1.9); OXYHEMOGLOBIN 88.6 %; PO2 COOX 67 mmHg (75-108); SAT O2 COOX 91 % (92-99)
[2020-02-01 16:33] LABS: PCO2 COOX 98 mmHg (35-46)
[2020-02-01 19:34] VITALS: BP 184/101
[2020-02-01 23:16] VITALS: BP 198/110
[2020-02-01] MEDS ORDERED: LISINOPRIL 20 MG TABLET PO ONE (23:45)
--- NOTE | 2020-02-02 01:00 | RAD ---
INDICATION: Reason: hypoxia / Spl. Instructions: / History: COMPARISON: January 29, 2020 FINDINGS: Single view of chest obtained. Enlarged cardiomediastinal silhouette. Bilateral pulmonic opacities are again seen including groundglass and nodular component. Fullness of the bilateral pulmonary hilum. IMPRESSION: * Bilateral pulmonic opacities which could be from bilateral infiltrate or edema. * Enlarged cardiomediastinal silhouette is again seen. Electronically signed by: Manoj Dobbins MD (02/02/2020 12:57 AM) [id number]
[2020-02-02 02:55] VITALS: BP 144/76
[2020-02-02 07:00] VITALS: BP 135/62
[2020-02-02] MEDS: INSULIN LISPRO 300 UNITS/3 ML VIAL. SQ SCH ×3 (08:00→17:25)
[2020-02-02 08:24] LABS: BASE EXCESS ABG 6 mmol/L (-3-3); HCO3 ABG 37 mmol/L (21-28); PO2 ABG 69 mmHg (75-108); SAT O2 ABG 92 % (92-99)
[2020-02-02 08:34] LABS: FIO2 ABG 35; PCO2 ABG 84 mmHg (35-46)
[2020-02-02] MEDS: MINERAL OIL/PETROLATUM TOPICAL CREAM 113GM JAR. TP SCH ×2 (09:25→21:10)
[2020-02-02] MEDS: DICLOFENAC SODIUM 1% TOPICAL GEL 100GM TUBE. TP SCH ×2 (09:25→21:11)
[2020-02-02] MEDS: LISINOPRIL 20 MG TABLET PO SCH (09:30)
[2020-02-02] MEDS: ASPIRIN ENTERIC COATED 325 MG TABLET.DR. PO SCH (09:30)
[2020-02-02] MEDS: CARVEDILOL 12.5 MG TABLET. PO SCH ×2 (09:30→17:21)
--- NOTE | 2020-02-02 09:30 | PDOC ---
IM PROGRESS NOTES- Subjective Subjective No complaints of pain or dyspnea. Mental status is much better today after he used BiPAP last night Objective Vitals/I&O Vital Signs Date Time Temp Pulse Resp B/P (MAP) Pulse Ox O2 Delivery O2 Flow Rate FiO2 02/02/20 07:45 95 BiPAP/CPAP 02/02/20 07:00 98.0 53 25 135/62 (86) 35.0 98.0 I & O 02/01/20 02/01/20 02/02/20 15:00 23:00 07:00 Intake Total 120 ml 500 ml 550 ml Output Total 1375 ml 800 ml 1050 ml Balance -1255 ml -300 ml -500 ml Physical Exam Physical Exam General appearance -he is very alert and appropriate and not in any acute distress Mental Status -alert Head - normal Chest -decreased breath sounds at bases Heart - S1 and S2 normal Abdomen - soft, nontender, bowel sounds present Neurological -alert and oriented Extremities -3-4+ pedal edema and anasarca Skin - warm and dry Labs Laboratory Tests Test 02/01/20 11:59 02/01/20 12:52 02/01/20 16:15 02/01/20 16:56 Glucose (Fingerstick) 168 mg/dL (70-99) H 147 mg/dL (70-99) H O2 Saturation 89 % (92-99) L 91 % (92-99) L Arterial Blood pH 7.14 (7.35-7.45) *L 7.24 (7.35-7.45) L Arterial Blood pCO2 at Patient Temp 116 mmHg (35-46) *H 98 mmHg (35-46) *H Arterial Blood pO2 at Patient Temp 68 mmHg (75-108) L 67 mmHg (75-108) L Arterial Blood HCO3 39 mmol/L (21-28) H 41 mmol/L (21-28) H Arterial Blood Base Excess 5 mmol/L (-3-3) H 9 mmol/L (-3-3) H FiO2 40 35 Oxyhemoglobin 88.6 % Methemoglobin 0.1 % (0.0-1.9) Carbon Monoxide, Quantitative 2.9 % (0.0-1.9) H Test 02/01/20 20:53 02/02/20 07:32 02/02/20 08:00 Glucose (Fingerstick) 85 mg/dL (70-99) 125 mg/dL (70-99) H O2 Saturation 92 % (92-99) Arterial Blood pH 7.26 (7.35-7.45) L Arterial Blood pCO2 at Patient Temp 84 mmHg (35-46) *H Arterial Blood pO2 at Patient Temp 69 mmHg (75-108) L Arterial Blood HCO3 37 mmol/L (21-28) H Arterial Blood Base Excess 6 mmol/L (-3-3) H FiO2 35 Meds Current Medications Medications (Trade) Dose Ordered Sig/Michelle Route PRN Reason Start Time Stop Time Status Last Admin Dose Admin Pantoprazole Sodium (Protonix) 40 mg DAILYAC PO 02/01/20 12:15 02/01/20 12:28 Lisinopril (Prinivil) 20 mg 1X ONCE PO 02/01/20 23:45 02/01/20 23:46 DC 02/01/20 23:41 Assessment Assessment Problems Medical Problems: (1) Acute exacerbation of CHF (congestive heart failure) Status: Acute (2) Elevated d-dimer Status: Acute (3) Elevated troponin Status: Acute (4) Obesity Status: Acute (5) Suspected 2019 novel coronavirus infection Status: Acute (6) Yeast dermatitis Status: Acute FINAL IMPRESSION: 1. Anasarca. 2. Acute on chronic diastolic heart failure. 3. Chronic obstructive pulmonary disease. 4. Obstructive sleep apnea. 5. Morbid obesity. 6. Diabetes. 7. Chronic kidney disease. 8. Smoking. 9. Noncompliance. 10. 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 PLAN: Acute on chronic diastolic congestive heart failure-creatinine is 1.8. Continue IV Bumex 2 mg twice daily D-dimer 1.1 and elevated but venous Doppler negative and low suspicion for thrombotic events. Patient is currently on subcu Lovenox for DVT prophylaxis. IV heparin drip has been discontinued. Recheck labs in a.m. Today's labs are pending. For details please refer to the orders. Vomiting-Zofran, pantoprazole Hyperkalemia-discontinue potassium supplements Sleep apnea continue BiPAP Diabetes mellitus-hemoglobin A1c is 7.7 Plan Plan For more details regarding further plans, please refer to the orders. Justifications for Admission Other Justification FEMI SAMPSON MD Feb 02, 2020 09:30
[2020-02-02] MEDS: MULTIVITAMIN with MINERAL TABLET. PO SCH (09:31)
[2020-02-02] MEDS: PANTOPRAZOLE 40 MG TABLET.DR. PO SCH (09:31)
[2020-02-02] MEDS: BUMETANIDE 1 MG/4 ML VIAL. IV SCH ×2 (09:32→13:55)
[2020-02-02 11:00] VITALS: BP 125/61
[2020-02-02 11:32] LABS: BLOOD UREA NITROGEN 37 mg/dL (8-26); CALCIUM 9.2 mg/dL (8.5-10.1); CARBON DIOXIDE 41 mmol/L (21-32); CHLORIDE 100 mmol/L (98-107); CREATININE 1.4 mg/dL (0.7-1.3); GFR 54.3; GLUCOSE 172 mg/dL (70-99); POTASSIUM 5.1 mmol/L (3.5-5.1); SODIUM 139 mmol/L (136-145)
--- NOTE | 2020-02-02 12:47 | PDOC ---
PULMONARY PROGRESS NOTES DATE: 02/02/20 TIME: 12:44 Subjective Pt. is awake and alert today Wore BIPAP last night Now on 5 liters N/C Nursing reports he is resistant to wearing the BIPAP any longer Vitals Vital Signs Date Time Temp Pulse Resp B/P (MAP) Pulse Ox O2 Delivery O2 Flow Rate FiO2 02/02/20 11:23 Nasal Cannula 5.0 02/02/20 09:31 59 154/76 02/02/20 07:45 95 02/02/20 07:00 98.0 25 98.0 ROS: No Nausea, No Chest Pain, No Abdominal Pain, No Increase Cough General: Lethargic HEENT: Other Lungs: Clear Cardiovascular: S1, S2 Abdomen: Soft, Non-tender, Other (obese ) Extremities: Other (edema BLE ) Labs Laboratory Tests Test 01/31/20 16:33 01/31/20 21:18 02/01/20 05:45 02/01/20 08:10 Glucose (Fingerstick) 139 mg/dL (70-99) 141 mg/dL (70-99) 121 mg/dL (70-99) Sodium Level 138 mmol/L (136-145) Potassium Level 5.4 mmol/L (3.5-5.1) Chloride Level 100 mmol/L (98-107) Carbon Dioxide Level 37 mmol/L (21-32) Anion Gap 1 (6-14) Blood Urea Nitrogen 50 mg/dL (8-26) Creatinine 1.8 mg/dL (0.7-1.3) Estimated GFR (Cockcroft-Gault) 40.6 Glucose Level 119 mg/dL (70-99) Calcium Level 8.9 mg/dL (8.5-10.1) Magnesium Level 2.0 mg/dL (1.8-2.4) Test 02/01/20 11:59 02/01/20 12:52 02/01/20 16:15 02/01/20 16:56 Glucose (Fingerstick) 168 mg/dL (70-99) 147 mg/dL (70-99) O2 Saturation 89 % (92-99) 91 % (92-99) Arterial Blood pH 7.14 (7.35-7.45) 7.24 (7.35-7.45) Arterial Blood pCO2 at Patient Temp 116 mmHg (35-46) 98 mmHg (35-46) Arterial Blood pO2 at Patient Temp 68 mmHg (75-108) 67 mmHg (75-108) Arterial Blood HCO3 39 mmol/L (21-28) 41 mmol/L (21-28) Arterial Blood Base Excess 5 mmol/L (-3-3) 9 mmol/L (-3-3) FiO2 40 35 Oxyhemoglobin 88.6 % Methemoglobin 0.1 % (0.0-1.9) Carbon Monoxide, Quantitative 2.9 % (0.0-1.9) Test 02/01/20 20:53 02/02/20 07:32 02/02/20 08:00 02/02/20 10:40 Glucose (Fingerstick) 85 mg/dL (70-99) 125 mg/dL (70-99) O2 Saturation 92 % (92-99) Arterial Blood pH 7.26 (7.35-7.45) Arterial Blood pCO2 at Patient Temp 84 mmHg (35-46) Arterial Blood pO2 at Patient Temp 69 mmHg (75-108) Arterial Blood HCO3 37 mmol/L (21-28) Arterial Blood Base Excess 6 mmol/L (-3-3) FiO2 35 Sodium Level 139 mmol/L (136-145) Potassium Level 5.1 mmol/L (3.5-5.1) Chloride Level 100 mmol/L (98-107) Carbon Dioxide Level 41 mmol/L (21-32) Anion Gap (6-14) Blood Urea Nitrogen 37 mg/dL (8-26) Creatinine 1.4 mg/dL (0.7-1.3) Estimated GFR (Cockcroft-Gault) 54.3 Glucose Level 172 mg/dL (70-99) Calcium Level 9.2 mg/dL (8.5-10.1) Test 02/02/20 11:58 Glucose (Fingerstick) 199 mg/dL (70-99) Laboratory Tests Test 02/01/20 12:52 02/01/20 16:15 02/01/20 16:56 02/01/20 20:53 O2 Saturation 89 % (92-99) 91 % (92-99) Arterial Blood pH 7.14 (7.35-7.45) 7.24 (7.35-7.45) Arterial Blood pCO2 at Patient Temp 116 mmHg (35-46) 98 mmHg (35-46) Arterial Blood pO2 at Patient Temp 68 mmHg (75-108) 67 mmHg (75-108) Arterial Blood HCO3 39 mmol/L (21-28) 41 mmol/L (21-28) Arterial Blood Base Excess 5 mmol/L (-3-3) 9 mmol/L (-3-3) FiO2 40 35 Oxyhemoglobin 88.6 % Methemoglobin 0.1 % (0.0-1.9) Carbon Monoxide, Quantitative 2.9 % (0.0-1.9) Glucose (Fingerstick) 147 mg/dL (70-99) 85 mg/dL (70-99) Test 02/02/20 07:32 02/02/20 08:00 02/02/20 10:40 02/02/20 11:58 Glucose (Fingerstick) 125 mg/dL (70-99) 199 mg/dL (70-99) O2 Saturation 92 % (92-99) Arterial Blood pH 7.26 (7.35-7.45) Arterial Blood pCO2 at Patient Temp 84 mmHg (35-46) Arterial Blood pO2 at Patient Temp 69 mmHg (75-108) Arterial Blood HCO3 37 mmol/L (21-28) Arterial Blood Base Excess 6 mmol/L (-3-3) FiO2 35 Sodium Level 139 mmol/L (136-145) Potassium Level 5.1 mmol/L (3.5-5.1) Chloride Level 100 mmol/L (98-107) Carbon Dioxide Level 41 mmol/L (21-32) Anion Gap (6-14) Blood Urea Nitrogen 37 mg/dL (8-26) Creatinine 1.4 mg/dL (0.7-1.3) Estimated GFR (Cockcroft-Gault) 54.3 Glucose Level 172 mg/dL (70-99) Calcium Level 9.2 mg/dL (8.5-10.1) Medications Active Scripts Medications Dose Route/Sig Max Daily Dose Days Date Category [Fluconazole] 100 MG Tablet 400 Mg PO DAILY 10 08/19/19 Rx Hydralazine Hcl 50 Mg Tablet 50 Mg PO TID 90 08/19/19 Rx K-Tab ER (Potassium Chloride) 20 Meq Tablet.er 20 Meq PO BID 30 08/19/19 Rx Lasix (Furosemide) 80 Mg Tablet 1 Tab PO BID 30 08/19/19 Rx One-A-Day Essential (Multivitamin) 1 Each Tablet 1 Tab PO DAILY 30 08/15/19 Reported Metformin Hcl 500 Mg Tablet 2 Tab PO BIDWMEALS 08/15/19 Reported Carvedilol (Carvedilol) 12.5 Mg Tablet 2 Tab PO BIDWMEALS 08/15/19 Reported Lisinopril 20 Mg Tablet 1 Tab PO DAILY 08/15/19 Reported Comments CXR 02/01/20 IMPRESSION: * Bilateral pulmonic opacities which could be from bilateral infiltrate or edema. * Enlarged cardiomediastinal silhouette is again seen. Impression . IMPRESSION: 1. Acute hypoxic respiratory failure, likely secondary to acute on chronic congestive heart failure in a patient who has ejection fraction of 45%. He probably also has coexisting right heart failure as well. 2. Underlying morbid obesity with suspected obesity hypoventilation syndrome and obstructive sleep apnea. His BMI is 76. He has elevated bicarb suggesting chronic hypercapnia. 3. Chronic lymphedema of the lower extremity/venous stasis. 4. Low clinical suspicion for COVID.--- COVID negative 5. Abnormal D-dimer level of 1.1. Venous Doppler was negative. Clinically, low suspicion for thromboembolic disease. Plan . RECOMMENDATIONS: Continue supplemental oxygen, now at 5 liters, ABG still demonstrated Hypercarbic respiratory acidosis-- However much improved BIPAP at night and PRN continue diuresis with Bumex Follow cardiology recs COVID is negative Follow chest x-ray post-diuresis. May benefit from sleep study as an outpatient. 6-minute walk test at the time of discharge HTN per cardiology and PCP DVT/GI PPX D/W DAVID FREEDMAN MD Feb 02, 2020 12:47
--- NOTE | 2020-02-02 12:50 | NUR ---
Bi-pap: Pt wanted to keep only NC on after eating breakfast. Encouraged pt to use bi-pap as pH is not back to normal range. Spoke with pt in depth about need for bi-pap. He stated he would try to wear it for a little bit after lunch. Will continue to monitor.
--- NOTE | 2020-02-02 13:58 | PDOC ---
Renal-Progress Notes Subjective Notes Notes LESS CONFUSED History of Present Illness Hx of present illness NO CHANGES Vitals Vitals Vital Signs Date Time Temp Pulse Resp B/P (MAP) Pulse Ox O2 Delivery O2 Flow Rate FiO2 02/02/20 13:56 121 135/52 02/02/20 11:23 Nasal Cannula 5.0 02/02/20 11:00 97.3 16 92 97.3 Weight Weight [ ] I.O. Intake and Output Intake and Output 02/02/20 07:00 Intake Total 1170 ml Output Total 3225 ml Balance -2055 ml Intake Oral 1170 ml Output Urine Total 3225 ml # Voids 1 Labs Labs Laboratory Tests Test 02/01/20 16:15 02/01/20 16:56 02/01/20 20:53 02/02/20 07:32 O2 Saturation 91 % (92-99) Arterial Blood pH 7.24 (7.35-7.45) Arterial Blood pCO2 at Patient Temp 98 mmHg (35-46) Arterial Blood pO2 at Patient Temp 67 mmHg (75-108) Arterial Blood HCO3 41 mmol/L (21-28) Arterial Blood Base Excess 9 mmol/L (-3-3) Oxyhemoglobin 88.6 % Methemoglobin 0.1 % (0.0-1.9) Carbon Monoxide, Quantitative 2.9 % (0.0-1.9) FiO2 35 Glucose (Fingerstick) 147 mg/dL (70-99) 85 mg/dL (70-99) 125 mg/dL (70-99) Test 02/02/20 08:00 02/02/20 10:40 02/02/20 11:58 O2 Saturation 92 % (92-99) Arterial Blood pH 7.26 (7.35-7.45) Arterial Blood pCO2 at Patient Temp 84 mmHg (35-46) Arterial Blood pO2 at Patient Temp 69 mmHg (75-108) Arterial Blood HCO3 37 mmol/L (21-28) Arterial Blood Base Excess 6 mmol/L (-3-3) FiO2 35 Sodium Level 139 mmol/L (136-145) Potassium Level 5.1 mmol/L (3.5-5.1) Chloride Level 100 mmol/L (98-107) Carbon Dioxide Level 41 mmol/L (21-32) Anion Gap (6-14) Blood Urea Nitrogen 37 mg/dL (8-26) Creatinine 1.4 mg/dL (0.7-1.3) Estimated GFR (Cockcroft-Gault) 54.3 Glucose Level 172 mg/dL (70-99) Calcium Level 9.2 mg/dL (8.5-10.1) Glucose (Fingerstick) 199 mg/dL (70-99) Micro Micro Microbiology 01/29/20 Blood Culture - Preliminary, Resulted NO GROWTH AFTER 3 DAYS Review of Systems Constitutional: yes: other (CONFUSED) Ears/Nose/Throat: Yes: no symptom reported Eyes: Yes: no symptom reported Gastrointestional: Yes: no symptom reported Genitourinary: Yes: no symptom reported Psychiatric/Neurological: Yes: no symptom reported Endocrine: Yes: no symptom reported Physical Exam General Appearance: no apparent distress Skin: warm Respiratory: decreased breath sounds Heart: S1S2 Abdomen: soft, bowel sounds present Genitourinary: bladder flat Extremities: pulses present, edema Neurology: alert, oriented, follow commands Musculoskeletal: Osteoarthritis Assessment Assessment IMP HYPERKALEMIA-BETTER LHE-DIO-DNOO CARDIORENAL-CR OF 1.9 CKD STAGE 2 WITH CR OF 1.2 ACUTE HYPOXIC RESP FAILURE CHF - ACUTE ON CHRONIC DIASTOLIC MORBID OBESITY CHRONIC LE LYMPHEDEMA DM II PLAN AGREE WITH DIURESIS FOR NEG FLUID BALANCE HOPEFULLY RENAL PERFUSION WILL IMPROVE SUPPLEMENT O2 AND PULM SUPPORT ENC BIPAP POOR PROGNOSIS WILL FOLLOW JESÚS PLATT MD Feb 02, 2020 13:58
[2020-02-02 15:00] VITALS: BP 124/62
[2020-02-02 19:15] VITALS: BP 103/51
[2020-02-02 23:00] VITALS: BP 118/51
[2020-02-03 03:52] VITALS: BP 119/59
[2020-02-03 07:00] VITALS: BP 150/80
[2020-02-03 07:23] LABS: CALCIUM 9.1 mg/dL (8.5-10.1); CREATININE 1.3 mg/dL (0.7-1.3); GFR 59.2; POTASSIUM 4.8 mmol/L (3.5-5.1)
[2020-02-03] MEDS: INSULIN LISPRO 300 UNITS/3 ML VIAL. SQ SCH ×3 (08:00→17:43)
[2020-02-03] MEDS: MULTIVITAMIN with MINERAL TABLET. PO SCH (08:34)
[2020-02-03] MEDS: MINERAL OIL/PETROLATUM TOPICAL CREAM 113GM JAR. TP SCH ×2 (08:34→20:21)
[2020-02-03] MEDS: LISINOPRIL 20 MG TABLET PO SCH (08:35)
[2020-02-03] MEDS: PANTOPRAZOLE 40 MG TABLET.DR. PO SCH (08:35)
[2020-02-03] MEDS: CARVEDILOL 12.5 MG TABLET. PO SCH ×2 (08:36→17:40)
[2020-02-03] MEDS: BUMETANIDE 1 MG/4 ML VIAL. IV SCH ×2 (08:37→14:32)
[2020-02-03] MEDS: ASPIRIN ENTERIC COATED 325 MG TABLET.DR. PO SCH (08:43)
--- NOTE | 2020-02-03 08:45 | PDOC ---
PROGRESS NOTES Date of Service: DATE: 02/03/20 TIME: 08:42 Subjective Subjective on oxygen now ,was on BIPAP at night Objective Objective Vital Signs Date Time Temp Pulse Resp B/P (MAP) Pulse Ox O2 Delivery O2 Flow Rate FiO2 02/03/20 08:36 114 150/80 02/03/20 07:46 Bi-pap 02/03/20 07:44 91 5.0 02/03/20 07:00 97.3 24 97.3 Intake and Output 02/03/20 07:00 Intake Total 120 ml Output Total 2375 ml Balance -2255 ml Intake Oral 120 ml Output Urine Total 2375 ml Physical Exam Abdomen: Soft, Other (obese) Heart: Regular rate (SR), Other (distant heart sounds ) Extremities: Other (chronic LE lymphedema) General: Alert, Oriented X3, Cooperative, No acute distress HEENT: Atraumatic, Mucous membr. moist/pink Lungs: Other (dimnished) MUSCULOSKELETAL: Osteoarthritic changes both hands Neuro: Normal speech, Sensation intact Psych/Mental Status: Other (FLAT ANXIOUS AFFECT) Skin: Other (LE venous dermatitis) Diagnosis Problem List Problems Medical Problems: (1) Acute exacerbation of CHF (congestive heart failure) Status: Acute (2) Elevated d-dimer Status: Acute (3) Elevated troponin Status: Acute (4) Obesity Status: Acute (5) Suspected 2019 novel coronavirus infection Status: Acute (6) Yeast dermatitis Status: Acute Assessment Assessment Problems Medical Problems: (1) Acute exacerbation of CHF (congestive heart failure) Status: Acute (2) Elevated d-dimer Status: Acute (3) Elevated troponin Status: Acute (4) Obesity Status: Acute (5) Suspected 2019 novel coronavirus infection Status: Acute (6) Yeast dermatitis Status: Acute FINAL IMPRESSION: 1. Anasarca. 2. Acute on chronic diastolic heart failure. 3. Chronic obstructive pulmonary disease. 4. Obstructive sleep apnea. 5. Morbid obesity. 6. Diabetes. 7. Chronic kidney disease. 8. Smoking. 9. Noncompliance. 10. 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 PLAN: Acute on chronic diastolic congestive heart failure-creatinine is 1.8. Continue IV Bumex 2 mg twice daily ECHO 45% ejf,old one renal function improving BIPA and oxygen continue diuresis with iv bumex Ideally need to go to SNU ,pt refusing Hypercapnic resp failure Diabetes mellitus-hemoglobin A1c is 7.7 Plan Plan of Care Problems Medical Problems: (1) Acute exacerbation of CHF (congestive heart failure) Status: Acute (2) Elevated d-dimer Status: Acute (3) Elevated troponin Status: Acute (4) Obesity Status: Acute (5) Suspected 2019 novel coronavirus infection Status: Acute (6) Yeast dermatitis Status: Acute Comment Review of Relevant I have reviewed the following items adolfo (where applicable) has been applied. Labs Laboratory Tests Test 02/02/20 10:40 02/02/20 11:58 02/02/20 17:19 02/02/20 21:07 Sodium Level 139 mmol/L (136-145) Potassium Level 5.1 mmol/L (3.5-5.1) Chloride Level 100 mmol/L (98-107) Carbon Dioxide Level 41 mmol/L (21-32) Anion Gap (6-14) Blood Urea Nitrogen 37 mg/dL (8-26) Creatinine 1.4 mg/dL (0.7-1.3) Estimated GFR (Cockcroft-Gault) 54.3 Glucose Level 172 mg/dL (70-99) Calcium Level 9.2 mg/dL (8.5-10.1) Glucose (Fingerstick) 199 mg/dL (70-99) 166 mg/dL (70-99) 211 mg/dL (70-99) Test 02/03/20 05:30 02/03/20 07:30 Sodium Level 139 mmol/L (136-145) Potassium Level 4.8 mmol/L (3.5-5.1) Chloride Level 99 mmol/L (98-107) Carbon Dioxide Level 38 mmol/L (21-32) Anion Gap 2 (6-14) Blood Urea Nitrogen 39 mg/dL (8-26) Creatinine 1.3 mg/dL (0.7-1.3) Estimated GFR (Cockcroft-Gault) 59.2 Glucose Level 83 mg/dL (70-99) Calcium Level 9.1 mg/dL (8.5-10.1) Glucose (Fingerstick) 105 mg/dL (70-99) Microbiology 01/29/20 Blood Culture - Preliminary, Resulted NO GROWTH AFTER 4 DAYS Vitals/I & O Vital Sign - Last 24 Hours 02/02/20 02/02/20 02/02/20 02/02/20 09:30 09:30 09:31 11:00 Temp 97.3 97.3 Pulse 59 59 59 71 Resp 16 B/P (MAP) 154/76 154/76 154/76 125/61 (82) Pulse Ox 92 O2 Delivery Nasal Cannula O2 Flow Rate 5.0 02/02/20 02/02/20 02/02/20 02/02/20 11:23 13:56 15:00 17:21 Temp 98.5 98.5 Pulse 121 62 62 Resp 16 B/P (MAP) 135/52 124/62 (82) 124/62 Pulse Ox 85 O2 Delivery Nasal Cannula BiPAP/CPAP O2 Flow Rate 5.0 35.0 02/02/20 02/02/20 02/02/20 02/02/20 19:15 20:00 20:49 21:10 Temp 98.0 98.0 Pulse 68 68 Resp 20 B/P (MAP) 103/51 (68) 103/51 Pulse Ox 95 O2 Delivery Nasal Cannula Bi-pap O2 Flow Rate 5.0 27.0 02/02/20 02/02/20 02/03/20 02/03/20 21:29 23:00 00:41 02:30 Temp 98.1 98.1 Pulse 61 Resp 24 B/P (MAP) 118/51 (73) Pulse Ox 92 93 94 93 O2 Delivery BiPAP/CPAP BiPAP/CPAP BiPAP/CPAP BiPAP/CPAP 02/03/20 02/03/20 02/03/20 02/03/20 03:52 04:25 07:00 07:44 Temp 98.6 97.3 98.6 97.3 Pulse 59 114 Resp 24 24 B/P (MAP) 119/59 (79) 150/80 (103) Pulse Ox 94 89 93 91 O2 Delivery BiPAP/CPAP BiPAP/CPAP BiPAP/CPAP Nasal Cannula O2 Flow Rate 5.0 02/03/20 02/03/20 02/03/20 02/03/20 07:46 08:35 08:35 08:36 Pulse 114 114 114 B/P (MAP) 150/80 150/80 150/80 O2 Delivery Bi-pap Intake and Output 02/02/20 02/02/20 02/03/20 15:00 23:00 07:00 Intake Total 120 ml 0 ml Output Total 1575 ml 600 ml 200 ml Balance -1575 ml -480 ml -200 ml Justifications for Admission Other Justification ANT LICEA MD Feb 03, 2020 08:45
[2020-02-03] MEDS: DICLOFENAC SODIUM 1% TOPICAL GEL 100GM TUBE. TP SCH ×2 (08:53→20:21)
--- NOTE | 2020-02-03 08:55 | PDOC ---
PULMONARY PROGRESS NOTES DATE: 02/03/20 TIME: 08:55 Subjective Patient not short of air Wore BIPAP last night Now on 5 liters N/C Vitals Vital Signs Date Time Temp Pulse Resp B/P (MAP) Pulse Ox O2 Delivery O2 Flow Rate FiO2 02/03/20 08:36 114 150/80 02/03/20 07:46 Bi-pap 02/03/20 07:44 91 5.0 02/03/20 07:00 97.3 24 97.3 ROS: No Nausea, No Chest Pain, No Abdominal Pain, No Increase Cough General: Lethargic HEENT: Other Lungs: Clear Cardiovascular: S1, S2 Abdomen: Soft, Non-tender, Other (obese ) Extremities: Other (edema BLE ) Labs Laboratory Tests Test 02/01/20 11:59 02/01/20 12:52 02/01/20 16:15 02/01/20 16:56 Glucose (Fingerstick) 168 mg/dL (70-99) 147 mg/dL (70-99) O2 Saturation 89 % (92-99) 91 % (92-99) Arterial Blood pH 7.14 (7.35-7.45) 7.24 (7.35-7.45) Arterial Blood pCO2 at Patient Temp 116 mmHg (35-46) 98 mmHg (35-46) Arterial Blood pO2 at Patient Temp 68 mmHg (75-108) 67 mmHg (75-108) Arterial Blood HCO3 39 mmol/L (21-28) 41 mmol/L (21-28) Arterial Blood Base Excess 5 mmol/L (-3-3) 9 mmol/L (-3-3) FiO2 40 35 Oxyhemoglobin 88.6 % Methemoglobin 0.1 % (0.0-1.9) Carbon Monoxide, Quantitative 2.9 % (0.0-1.9) Test 02/01/20 20:53 02/02/20 07:32 02/02/20 08:00 02/02/20 10:40 Glucose (Fingerstick) 85 mg/dL (70-99) 125 mg/dL (70-99) O2 Saturation 92 % (92-99) Arterial Blood pH 7.26 (7.35-7.45) Arterial Blood pCO2 at Patient Temp 84 mmHg (35-46) Arterial Blood pO2 at Patient Temp 69 mmHg (75-108) Arterial Blood HCO3 37 mmol/L (21-28) Arterial Blood Base Excess 6 mmol/L (-3-3) FiO2 35 Sodium Level 139 mmol/L (136-145) Potassium Level 5.1 mmol/L (3.5-5.1) Chloride Level 100 mmol/L (98-107) Carbon Dioxide Level 41 mmol/L (21-32) Anion Gap (6-14) Blood Urea Nitrogen 37 mg/dL (8-26) Creatinine 1.4 mg/dL (0.7-1.3) Estimated GFR (Cockcroft-Gault) 54.3 Glucose Level 172 mg/dL (70-99) Calcium Level 9.2 mg/dL (8.5-10.1) Test 02/02/20 11:58 02/02/20 17:19 02/02/20 21:07 02/03/20 05:30 Glucose (Fingerstick) 199 mg/dL (70-99) 166 mg/dL (70-99) 211 mg/dL (70-99) Sodium Level 139 mmol/L (136-145) Potassium Level 4.8 mmol/L (3.5-5.1) Chloride Level 99 mmol/L (98-107) Carbon Dioxide Level 38 mmol/L (21-32) Anion Gap 2 (6-14) Blood Urea Nitrogen 39 mg/dL (8-26) Creatinine 1.3 mg/dL (0.7-1.3) Estimated GFR (Cockcroft-Gault) 59.2 Glucose Level 83 mg/dL (70-99) Calcium Level 9.1 mg/dL (8.5-10.1) Test 02/03/20 07:30 Glucose (Fingerstick) 105 mg/dL (70-99) Laboratory Tests Test 02/02/20 10:40 02/02/20 11:58 02/02/20 17:19 02/02/20 21:07 Sodium Level 139 mmol/L (136-145) Potassium Level 5.1 mmol/L (3.5-5.1) Chloride Level 100 mmol/L (98-107) Carbon Dioxide Level 41 mmol/L (21-32) Anion Gap (6-14) Blood Urea Nitrogen 37 mg/dL (8-26) Creatinine 1.4 mg/dL (0.7-1.3) Estimated GFR (Cockcroft-Gault) 54.3 Glucose Level 172 mg/dL (70-99) Calcium Level 9.2 mg/dL (8.5-10.1) Glucose (Fingerstick) 199 mg/dL (70-99) 166 mg/dL (70-99) 211 mg/dL (70-99) Test 02/03/20 05:30 02/03/20 07:30 Sodium Level 139 mmol/L (136-145) Potassium Level 4.8 mmol/L (3.5-5.1) Chloride Level 99 mmol/L (98-107) Carbon Dioxide Level 38 mmol/L (21-32) Anion Gap 2 (6-14) Blood Urea Nitrogen 39 mg/dL (8-26) Creatinine 1.3 mg/dL (0.7-1.3) Estimated GFR (Cockcroft-Gault) 59.2 Glucose Level 83 mg/dL (70-99) Calcium Level 9.1 mg/dL (8.5-10.1) Glucose (Fingerstick) 105 mg/dL (70-99) Medications Active Scripts Medications Dose Route/Sig Max Daily Dose Days Date Category [Fluconazole] 100 MG Tablet 400 Mg PO DAILY 10 08/19/19 Rx Hydralazine Hcl 50 Mg Tablet 50 Mg PO TID 90 08/19/19 Rx K-Tab ER (Potassium Chloride) 20 Meq Tablet.er 20 Meq PO BID 30 08/19/19 Rx Lasix (Furosemide) 80 Mg Tablet 1 Tab PO BID 30 08/19/19 Rx One-A-Day Essential (Multivitamin) 1 Each Tablet 1 Tab PO DAILY 30 08/15/19 Reported Metformin Hcl 500 Mg Tablet 2 Tab PO BIDWMEALS 08/15/19 Reported Carvedilol (Carvedilol) 12.5 Mg Tablet 2 Tab PO BIDWMEALS 08/15/19 Reported Lisinopril 20 Mg Tablet 1 Tab PO DAILY 08/15/19 Reported Comments CXR 02/01/20 IMPRESSION: * Bilateral pulmonic opacities which could be from bilateral infiltrate or edema. * Enlarged cardiomediastinal silhouette is again seen. Impression . IMPRESSION: 1. Acute hypoxic hypercapnic respiratory failure, likely secondary to acute on chronic congestive heart failure in a patient who has ejection fraction of 45%. He probably also has coexisting right heart failure as well. 2. Underlying morbid obesity with suspected obesity hypoventilation syndrome and obstructive sleep apnea. His BMI is 76. He has elevated bicarb suggesting chronic hypercapnia. 3. Chronic lymphedema of the lower extremity/venous stasis. 4. Low clinical suspicion for COVID.--- COVID negative 5. Abnormal D-dimer level of 1.1. Venous Doppler was negative. Clinically, low suspicion for thromboembolic disease. Plan . Repeat ABG in the a.m. Possible discharge in the a.m., patient refuses to go to skilled unit BIPAP at night and PRN continue diuresis with Bumex Follow cardiology recs COVID is negative Follow chest x-ray post-diuresis. May benefit from sleep study as an outpatient. 6-minute walk test at the time of discharge HTN per cardiology and PCP DVT/GI PPX D/W DAVID FREEDMAN MD Feb 03, 2020 08:55
[2020-02-03 09:29] LABS: BASO # 0.1 x10^3/uL (0.0-0.2); BASO % 1 % (0-3); EOS # 0.1 x10^3/uL (0.0-0.7); EOS % 2 % (0-3); HEMATOCRIT 45.5 % (39.0-53.0); HEMOGLOBIN 14.1 g/dL (13.0-17.5); LYMPH # 1.9 x10^3/uL (1.0-4.8); LYMPH % 26 % (24-48); MEAN CORPUSCULAR HEMOGLOBIN 26 pg (25-35); MEAN CORPUSCULAR HGB CONC 31 g/dL (31-37); MEAN CORPUSCULAR VOLUME 85 fL (79-100); MONO # 0.9 x10^3/uL (0.0-1.1); MONO % 12 % (0-9); NEUT # 4.3 x10^3/uL (1.8-7.7); NEUT % 58 % (31-73); PLATELET COUNT 129 x10^3/uL (140-400); RED BLOOD COUNT 5.36 x10^6/uL (4.30-5.70); RED CELL DISTRIBUTION WIDTH 17.4 % (11.5-14.5); WHITE BLOOD COUNT 7.4 x10^3/uL (4.0-11.0)
--- NOTE | 2020-02-03 09:58 | PDOC ---
DATE OF SERVICE DATE: 02/03/20 TIME: 09:57 SUBJECTIVE ROS No complaints, stable OBJECTIVE Vital Signs Vital Signs Date Time Temp Pulse Resp B/P (MAP) Pulse Ox O2 Delivery O2 Flow Rate FiO2 02/03/20 08:36 114 150/80 02/03/20 07:46 Bi-pap 02/03/20 07:44 91 5.0 02/03/20 07:00 97.3 24 97.3 I & 0 Intake and Output 02/03/20 07:00 Intake Total 120 ml Output Total 2375 ml Balance -2255 ml Intake Oral 120 ml Output Urine Total 2375 ml PHYSICAL EXAM Physical Exam General: Alert, Oriented X3, Cooperative, No acute distress HEENT: Atraumatic, Mucous membr. moist/pink Lungs: dimnished, Non labored Abdomen: Obese Heart: Regular rate (SR), distant heart sounds ) Extremities: chronic LE lymphedema Neuro: Normal speech, Sensation intact Skin: LE venous dermatitis No acuña DIAGNOSIS/ASSESSMENT Assessment & Plan ADINA- Cardiorenal Improving 2.0-->1.3 Supportive care, avoid Nephrotoxins HyperKalemia - resolved CKD stage 2 with Cr 1.2 ACute Hypoxic Resp failure CHF - Acute on Chronic Diastolic On IV Bumex BID, UOP good, improvement in renal function with Improved perfusion Switch to PO prior to DC and OP monitoring in cardiology clinic Was on Furosemide 80 mg PO BID at home Morbid Obesity Chronic LE Lymphedema DM II COMMENT/RELEVANT DATA Meds Current Medications Medications (Trade) Dose Ordered Sig/Michelle Start Time Stop Time Status Last Admin Dose Admin Aspirin (Brijesh Aspirin) 325 mg 1X ONCE 01/29/20 12:30 01/29/20 12:31 DC 01/29/20 14:30 325 MG Aspirin (Ecotrin) 325 mg DAILYWBKFT 01/30/20 13:00 02/03/20 08:43 325 MG Bumetanide (Bumex) 2 mg BID92 01/31/20 14:00 02/03/20 08:37 2 MG Carvedilol (Coreg) 25 mg BIDWMEALS 01/30/20 08:00 02/03/20 08:36 25 MG Dextrose (Dextrose 50%-Water Syringe) 12.5 gm PRN Q15MIN PRN 01/29/20 20:15 Diclofenac Sodium (Voltaren) 1 jason BID 01/31/20 14:00 02/02/20 21:11 1 JASON Enoxaparin Sodium (Lovenox 60mg Syringe) 60 mg Q12HR 01/31/20 10:00 02/03/20 08:37 60 MG Enoxaparin Sodium (Lovenox Per Pharmacy Prophylaxis Dosing) 1 each PRN DAILY PRN 01/31/20 09:00 Heparin Sodium (Porcine) (Heparin Sodium) 6,000 unit PRN Q6HRS PRN 01/29/20 15:45 01/30/20 12:19 DC 01/30/20 09:10 6,000 UNIT Heparin Sodium/ Dextrose 250 ml @ 0 mls/hr CONT PRN 01/29/20 15:45 01/30/20 12:19 DC 01/30/20 09:10 24.3 MLS/HR Hydralazine HCl (Apresoline) 50 mg TID 01/29/20 21:00 02/03/20 08:35 50 MG Insulin Human Lispro (HumaLOG) 0-5 UNITS TIDWMEALS 01/30/20 08:00 02/02/20 17:25 2 UNITS Lisinopril (Prinivil) 20 mg 1X ONCE 02/01/20 23:45 02/01/20 23:46 DC 02/01/20 23:41 20 MG Magnesium Sulfate 50 ml @ 25 mls/hr 1X ONCE 01/31/20 13:30 01/31/20 15:29 DC 01/31/20 14:17 25 MLS/HR Multi-Ingredient Ointment (Hydrocerin Cream) 1 jason BID 01/31/20 14:00 02/03/20 08:34 1 JASON Multivitamins (Thera M Plus) 1 tab DAILY 02/01/20 09:00 02/03/20 08:34 1 TAB Nystatin (Nystop) 1 jason 1X ONCE 01/29/20 13:45 01/29/20 13:46 DC 01/29/20 16:50 1 JASON Ondansetron HCl (Zofran) 4 mg PRN Q6HRS PRN 02/01/20 11:15 Pantoprazole Sodium (Protonix) 40 mg DAILYAC 02/01/20 12:15 02/03/20 08:35 40 MG Potassium Chloride (Klor-Con) 40 meq DAILYWBKFT 01/30/20 08:00 02/01/20 12:12 DC 01/31/20 08:55 40 MEQ Lab Laboratory Tests Test 02/02/20 10:40 02/02/20 11:58 02/02/20 17:19 02/02/20 21:07 Sodium Level 139 mmol/L (136-145) Potassium Level 5.1 mmol/L (3.5-5.1) Chloride Level 100 mmol/L (98-107) Carbon Dioxide Level 41 mmol/L (21-32) Anion Gap (6-14) Blood Urea Nitrogen 37 mg/dL (8-26) Creatinine 1.4 mg/dL (0.7-1.3) Estimated GFR (Cockcroft-Gault) 54.3 Glucose Level 172 mg/dL (70-99) Calcium Level 9.2 mg/dL (8.5-10.1) Glucose (Fingerstick) 199 mg/dL (70-99) 166 mg/dL (70-99) 211 mg/dL (70-99) Test 02/03/20 05:30 02/03/20 07:30 02/03/20 09:10 Sodium Level 139 mmol/L (136-145) Potassium Level 4.8 mmol/L (3.5-5.1) Chloride Level 99 mmol/L (98-107) Carbon Dioxide Level 38 mmol/L (21-32) Anion Gap 2 (6-14) Blood Urea Nitrogen 39 mg/dL (8-26) Creatinine 1.3 mg/dL (0.7-1.3) Estimated GFR (Cockcroft-Gault) 59.2 Glucose Level 83 mg/dL (70-99) Calcium Level 9.1 mg/dL (8.5-10.1) Magnesium Level 2.0 mg/dL (1.8-2.4) Glucose (Fingerstick) 105 mg/dL (70-99) White Blood Count 7.4 x10^3/uL (4.0-11.0) Red Blood Count 5.36 x10^6/uL (4.30-5.70) Hemoglobin 14.1 g/dL (13.0-17.5) Hematocrit 45.5 % (39.0-53.0) Mean Corpuscular Volume 85 fL (79-100) Mean Corpuscular Hemoglobin 26 pg (25-35) Mean Corpuscular Hemoglobin Concent 31 g/dL (31-37) Red Cell Distribution Width 17.4 % (11.5-14.5) Platelet Count 129 x10^3/uL (140-400) Neutrophils (%) (Auto) 58 % (31-73) Lymphocytes (%) (Auto) 26 % (24-48) Monocytes (%) (Auto) 12 % (0-9) Eosinophils (%) (Auto) 2 % (0-3) Basophils (%) (Auto) 1 % (0-3) Neutrophils # (Auto) 4.3 x10^3/uL (1.8-7.7) Lymphocytes # (Auto) 1.9 x10^3/uL (1.0-4.8) Monocytes # (Auto) 0.9 x10^3/uL (0.0-1.1) Eosinophils # (Auto) 0.1 x10^3/uL (0.0-0.7) Basophils # (Auto) 0.1 x10^3/uL (0.0-0.2) Results All relevant outside records, renal labs, imaging studies, telemetry/EKG's were reviewed. Justicifation of Admission Dx: Justifications for Admission: Justification of Admission Dx: Yes VASHTI ANTONY MD Feb 03, 2020 09:57
[2020-02-03 10:27] VITALS: BP 114/58
[2020-02-03 11:32] LABS: CALCIUM 9.1 mg/dL (8.5-10.1); CREATININE 1.3 mg/dL (0.7-1.3); GFR 59.2; POTASSIUM 4.8 mmol/L (3.5-5.1)
--- NOTE | 2020-02-03 12:18 | NUR ---
SS following up with discharge planning. SS reviewed pt chart and discussed with pt RN. Pt is currently requiring oxygen. Pat has no home oxygen and will need six minute walk. Pt also needing outpatient sleep study. COVID19 negative. Pt on IV Bumex. PT recommended home. SS will continue to follow for discharge planning.
--- NOTE | 2020-02-03 13:27 | PDOC ---
PROGRESS NOTES Date of Service DATE: 02/03/20 TIME: 13:25 Subjective Subjective No new complaints. Objective Objective Vital Signs Date Time Temp Pulse Resp B/P (MAP) Pulse Ox O2 Delivery O2 Flow Rate FiO2 02/03/20 10:27 97.6 116 24 114/58 (76) 92 Nasal Cannula 5.0 97.6 Intake and Output 02/03/20 07:00 Intake Total 120 ml Output Total 2375 ml Balance -2255 ml Intake Oral 120 ml Output Urine Total 2375 ml Physical Exam Physical Exam He is alert,supine in bed and no change noted with his neurological status and he continues with lymphedema of his feet and legs and dressing in place to his knees and he had stiffness of his knees. Assessment Assessment Problems Medical Problems: (1) Acute exacerbation of CHF (congestive heart failure) Status: Acute (2) Elevated d-dimer Status: Acute (3) Elevated troponin Status: Acute (4) Obesity Status: Acute (5) Suspected 2019 novel coronavirus infection Status: Acute (6) Yeast dermatitis Status: Acute Plan Plan of Care To get him up as tolerated. Comment Review of Relevant I have reviewed the following items adolfo (where applicable) has been applied. Labs Laboratory Tests Test 02/01/20 16:15 02/01/20 16:56 02/01/20 20:53 02/02/20 07:32 O2 Saturation 91 % (92-99) Arterial Blood pH 7.24 (7.35-7.45) Arterial Blood pCO2 at Patient Temp 98 mmHg (35-46) Arterial Blood pO2 at Patient Temp 67 mmHg (75-108) Arterial Blood HCO3 41 mmol/L (21-28) Arterial Blood Base Excess 9 mmol/L (-3-3) Oxyhemoglobin 88.6 % Methemoglobin 0.1 % (0.0-1.9) Carbon Monoxide, Quantitative 2.9 % (0.0-1.9) FiO2 35 Glucose (Fingerstick) 147 mg/dL (70-99) 85 mg/dL (70-99) 125 mg/dL (70-99) Test 02/02/20 08:00 02/02/20 10:40 02/02/20 11:58 02/02/20 17:19 O2 Saturation 92 % (92-99) Arterial Blood pH 7.26 (7.35-7.45) Arterial Blood pCO2 at Patient Temp 84 mmHg (35-46) Arterial Blood pO2 at Patient Temp 69 mmHg (75-108) Arterial Blood HCO3 37 mmol/L (21-28) Arterial Blood Base Excess 6 mmol/L (-3-3) FiO2 35 Sodium Level 139 mmol/L (136-145) Potassium Level 5.1 mmol/L (3.5-5.1) Chloride Level 100 mmol/L (98-107) Carbon Dioxide Level 41 mmol/L (21-32) Anion Gap (6-14) Blood Urea Nitrogen 37 mg/dL (8-26) Creatinine 1.4 mg/dL (0.7-1.3) Estimated GFR (Cockcroft-Gault) 54.3 Glucose Level 172 mg/dL (70-99) Calcium Level 9.2 mg/dL (8.5-10.1) Glucose (Fingerstick) 199 mg/dL (70-99) 166 mg/dL (70-99) Test 02/02/20 21:07 02/03/20 05:30 02/03/20 07:30 02/03/20 09:10 Glucose (Fingerstick) 211 mg/dL (70-99) 105 mg/dL (70-99) Sodium Level 139 mmol/L (136-145) Potassium Level 4.8 mmol/L (3.5-5.1) Chloride Level 99 mmol/L (98-107) Carbon Dioxide Level 40 mmol/L (21-32) Anion Gap 0 (6-14) Blood Urea Nitrogen 36 mg/dL (8-26) Creatinine 1.3 mg/dL (0.7-1.3) Estimated GFR (Cockcroft-Gault) 59.2 Glucose Level 148 mg/dL (70-99) Calcium Level 9.1 mg/dL (8.5-10.1) Magnesium Level 2.0 mg/dL (1.8-2.4) White Blood Count 7.4 x10^3/uL (4.0-11.0) Red Blood Count 5.36 x10^6/uL (4.30-5.70) Hemoglobin 14.1 g/dL (13.0-17.5) Hematocrit 45.5 % (39.0-53.0) Mean Corpuscular Volume 85 fL (79-100) Mean Corpuscular Hemoglobin 26 pg (25-35) Mean Corpuscular Hemoglobin Concent 31 g/dL (31-37) Red Cell Distribution Width 17.4 % (11.5-14.5) Platelet Count 129 x10^3/uL (140-400) Neutrophils (%) (Auto) 58 % (31-73) Lymphocytes (%) (Auto) 26 % (24-48) Monocytes (%) (Auto) 12 % (0-9) Eosinophils (%) (Auto) 2 % (0-3) Basophils (%) (Auto) 1 % (0-3) Neutrophils # (Auto) 4.3 x10^3/uL (1.8-7.7) Lymphocytes # (Auto) 1.9 x10^3/uL (1.0-4.8) Monocytes # (Auto) 0.9 x10^3/uL (0.0-1.1) Eosinophils # (Auto) 0.1 x10^3/uL (0.0-0.7) Basophils # (Auto) 0.1 x10^3/uL (0.0-0.2) Test 02/03/20 11:17 Glucose (Fingerstick) 170 mg/dL (70-99) Laboratory Tests Test 02/02/20 17:19 02/02/20 21:07 02/03/20 05:30 02/03/20 07:30 Glucose (Fingerstick) 166 mg/dL (70-99) 211 mg/dL (70-99) 105 mg/dL (70-99) Sodium Level 139 mmol/L (136-145) Potassium Level 4.8 mmol/L (3.5-5.1) Chloride Level 99 mmol/L (98-107) Carbon Dioxide Level 40 mmol/L (21-32) Anion Gap 0 (6-14) Blood Urea Nitrogen 36 mg/dL (8-26) Creatinine 1.3 mg/dL (0.7-1.3) Estimated GFR (Cockcroft-Gault) 59.2 Glucose Level 148 mg/dL (70-99) Calcium Level 9.1 mg/dL (8.5-10.1) Magnesium Level 2.0 mg/dL (1.8-2.4) Test 02/03/20 09:10 02/03/20 11:17 White Blood Count 7.4 x10^3/uL (4.0-11.0) Red Blood Count 5.36 x10^6/uL (4.30-5.70) Hemoglobin 14.1 g/dL (13.0-17.5) Hematocrit 45.5 % (39.0-53.0) Mean Corpuscular Volume 85 fL (79-100) Mean Corpuscular Hemoglobin 26 pg (25-35) Mean Corpuscular Hemoglobin Concent 31 g/dL (31-37) Red Cell Distribution Width 17.4 % (11.5-14.5) Platelet Count 129 x10^3/uL (140-400) Neutrophils (%) (Auto) 58 % (31-73) Lymphocytes (%) (Auto) 26 % (24-48) Monocytes (%) (Auto) 12 % (0-9) Eosinophils (%) (Auto) 2 % (0-3) Basophils (%) (Auto) 1 % (0-3) Neutrophils # (Auto) 4.3 x10^3/uL (1.8-7.7) Lymphocytes # (Auto) 1.9 x10^3/uL (1.0-4.8) Monocytes # (Auto) 0.9 x10^3/uL (0.0-1.1) Eosinophils # (Auto) 0.1 x10^3/uL (0.0-0.7) Basophils # (Auto) 0.1 x10^3/uL (0.0-0.2) Glucose (Fingerstick) 170 mg/dL (70-99) Microbiology 01/29/20 Blood Culture - Preliminary, Resulted NO GROWTH AFTER 4 DAYS Medications Current Medications Aspirin (Brijesh Aspirin) 325 mg 1X ONCE PO Last administered on 01/29/20at 14:30; Start 01/29/20 at 12:30; Stop 01/29/20 at 12:31; Status DC Nystatin (Nystop) 1 jason 1X ONCE TP Last administered on 01/29/20at 16:50; Start 01/29/20 at 13:45; Stop 01/29/20 at 13:46; Status DC Bumetanide (Bumex) 0.5 mg 1X ONCE IV ; Start 01/29/20 at 15:45; Stop 01/29/20 at 15:44; Status DC Heparin Sodium (Porcine) (Heparin Sodium) 4,000 unit 1X ONCE IV Last administered on 01/29/20at 16:55; Start 01/29/20 at 15:45; Stop 01/30/20 at 12:19; Status DC Heparin Sodium/ Dextrose 250 ml @ 0 mls/hr CONT PRN IV PER PROTOCOL Last a dministered on 01/30/20at 09:10; Start 01/29/20 at 15:45; Stop 01/30/20 at 12:19; Status DC Heparin Sodium (Porcine) (Heparin Sodium) 6,000 unit PRN Q6HRS PRN IV FOR UFH LEVEL LESS THAN 0.2 Last administered on 01/30/20at 09:10; Start 01/29/20 at 15:45; Stop 01/30/20 at 12:19; Status DC Ondansetron HCl (Zofran) 4 mg PRN Q8HRS PRN IV NAUSEA/VOMITING; Start 01/29/20 at 15:45; Stop 01/30/20 at 15:44; Status DC Bumetanide (Bumex) 1 mg 1X ONCE IV Last administered on 01/29/20at 16:54; Start 01/29/20 at 15:45; Stop 01/29/20 at 15:49; Status DC Carvedilol (Coreg) 25 mg BIDWMEALS PO Last administered on 02/03/20at 08:36; Start 01/30/20 at 08:00 Hydralazine HCl (Apresoline) 50 mg TID PO Last administered on 02/03/20at 08:35; Start 01/29/20 at 21:00 Lisinopril (Prinivil) 20 mg DAILY PO Last administered on 02/03/20at 08:35; Start 01/30/20 at 09:00 Potassium Chloride (Klor-Con) 40 meq DAILYWBKFT PO Last administered on 01/31/20at 08:55; Start 01/30/20 at 08:00; Stop 02/01/20 at 12:12; Status DC Bumetanide (Bumex) 1 mg BID92 IV Last administered on 01/31/20at 08:53; Start 01/29/20 at 20:00; Stop 01/31/20 at 11:39; Status DC Insulin Human Lispro (HumaLOG) 0-5 UNITS TIDWMEALS SQ Last administered on 02/03/20 12:41; Start 01/30/20 at 08:00 Dextrose (Dextrose 50%-Water Syringe) 12.5 gm PRN Q15MIN PRN IV SEE COMMENTS; Start 01/29/20 at 20:15 Aspirin (Ecotrin) 325 mg DAILYWBKFT PO Last administered on 02/03/20 08:43; Start 01/30/20 at 13:00 Enoxaparin Sodium (Lovenox Per Pharmacy Prophylaxis Dosing) 1 each PRN DAILY PRN MC SEE COMMENTS; Start 01/31/20 at 09:00 Enoxaparin Sodium (Lovenox 60mg Syringe) 60 mg Q12HR SQ Last administered on 02/03/20 08:37; Start 01/31/20 at 10:00 Bumetanide (Bumex) 2 mg BID92 IV Last administered on 02/03/20 08:37; Start 01/31/20 at 14:00 Magnesium Sulfate 50 ml @ 25 mls/hr 1X ONCE IV Last administered on 01/31/20 14:17; Start 01/31/20 at 13:30; Stop 01/31/20 at 15:29; Status DC Diclofenac Sodium (Voltaren) 1 jason BID TP Last administered on 02/02/20 21:11; Start 01/31/20 at 14:00 Multi-Ingredient Ointment (Hydrocerin Cream) 1 jason BID TP Last administered on 02/03/20 08:34; Start 01/31/20 at 14:00 Multivitamins (Thera M Plus) 1 tab DAILY PO Last administered on 02/03/20 08:34; Start 02/01/20 at 09:00 Ondansetron HCl (Zofran) 4 mg PRN Q6HRS PRN IVP NAUSEA/VOMITING; Start 02/01/20 at 11:15 Pantoprazole Sodium (Protonix) 40 mg DAILYAC PO Last administered on 02/03/20 08:35; Start 02/01/20 at 12:15 Lisinopril (Prinivil) 20 mg 1X ONCE PO Last administered on 02/01/20 23:41; Start 02/01/20 at 23:45; Stop 02/01/20 at 23:46; Status DC Active Scripts Active [Fluconazole] 100 MG Tablet 400 Mg PO DAILY 10 Days Hydralazine Hcl 50 Mg Tablet 50 Mg PO TID 90 Days K-Tab ER (Potassium Chloride) 20 Meq Tablet.er 20 Meq PO BID 30 Days Lasix (Furosemide) 80 Mg Tablet 1 Tab PO BID 30 Days Reported One-A-Day Essential (Multivitamin) 1 Each Tablet 1 Tab PO DAILY 30 Days Metformin Hcl 500 Mg Tablet 2 Tab PO BIDWMEALS Carvedilol (Carvedilol) 12.5 Mg Tablet 2 Tab PO BIDWMEALS Lisinopril 20 Mg Tablet 1 Tab PO DAILY Vitals/I & O Vital Sign - Last 24 Hours 02/02/20 02/02/20 02/02/20 02/02/20 13:56 15:00 17:21 19:15 Temp 98.5 98.0 98.5 98.0 Pulse 121 62 62 68 Resp 16 20 B/P (MAP) 135/52 124/62 (82) 124/62 103/51 (68) Pulse Ox 85 95 O2 Delivery BiPAP/CPAP Nasal Cannula O2 Flow Rate 35.0 5.0 02/02/20 02/02/20 02/02/20 02/02/20 20:00 20:49 21:10 21:29 Pulse 68 B/P (MAP) 103/51 Pulse Ox 92 O2 Delivery Bi-pap BiPAP/CPAP O2 Flow Rate 27.0 02/02/20 02/03/20 02/03/20 02/03/20 23:00 00:41 02:30 03:52 Temp 98.1 98.6 98.1 98.6 Pulse 61 59 Resp 24 24 B/P (MAP) 118/51 (73) 119/59 (79) Pulse Ox 93 94 93 94 O2 Delivery BiPAP/CPAP BiPAP/CPAP BiPAP/CPAP BiPAP/CPAP 02/03/20 02/03/20 02/03/20 02/03/20 04:25 07:00 07:44 07:46 Temp 97.3 97.3 Pulse 114 Resp 24 B/P (MAP) 150/80 (103) Pulse Ox 89 93 91 O2 Delivery BiPAP/CPAP BiPAP/CPAP Nasal Cannula Bi-pap O2 Flow Rate 5.0 02/03/20 02/03/20 02/03/20 02/03/20 08:35 08:35 08:36 10:27 Temp 97.6 97.6 Pulse 114 114 114 116 Resp 24 B/P (MAP) 150/80 150/80 150/80 114/58 (76) Pulse Ox 92 O2 Delivery Nasal Cannula O2 Flow Rate 5.0 Intake and Output 02/02/20 02/02/20 02/03/20 15:00 23:00 07:00 Intake Total 120 ml 0 ml Output Total 1575 ml 600 ml 200 ml Balance -1575 ml -480 ml -200 ml Justifications for Admission Other Justification RAMYA LIRA MD Feb 03, 2020 13:26
[2020-02-03 14:36] VITALS: BP 125/61
[2020-02-03 19:00] VITALS: BP 106/54
[2020-02-03 22:46] VITALS: BP 117/56
[2020-02-04 02:56] VITALS: BP 120/58
[2020-02-04 06:33] LABS: BASO # 0.1 x10^3/uL (0.0-0.2); BASO % 1 % (0-3); EOS # 0.2 x10^3/uL (0.0-0.7); EOS % 3 % (0-3); HEMATOCRIT 43.5 % (39.0-53.0); HEMOGLOBIN 13.5 g/dL (13.0-17.5); LYMPH # 2.2 x10^3/uL (1.0-4.8); LYMPH % 32 % (24-48); MEAN CORPUSCULAR HEMOGLOBIN 27 pg (25-35); MEAN CORPUSCULAR HGB CONC 31 g/dL (31-37); MEAN CORPUSCULAR VOLUME 85 fL (79-100); MONO # 1.1 x10^3/uL (0.0-1.1); MONO % 15 % (0-9); NEUT # 3.4 x10^3/uL (1.8-7.7); NEUT % 49 % (31-73); PLATELET COUNT 131 x10^3/uL (140-400); RED BLOOD COUNT 5.11 x10^6/uL (4.30-5.70); RED CELL DISTRIBUTION WIDTH 17.3 % (11.5-14.5); WHITE BLOOD COUNT 6.9 x10^3/uL (4.0-11.0)
[2020-02-04 07:00] VITALS: BP 127/69
[2020-02-04 07:02] LABS: CALCIUM 9.1 mg/dL (8.5-10.1); CREATININE 1.4 mg/dL (0.7-1.3); GFR 54.3; POTASSIUM 4.4 mmol/L (3.5-5.1)
[2020-02-04] MEDS: INSULIN LISPRO 300 UNITS/3 ML VIAL. SQ SCH ×2 (08:00→12:00)
--- NOTE | 2020-02-04 08:36 | PDOC ---
PROGRESS NOTES Date of Service: DATE: 02/04/20 TIME: 08:36 Objective Objective Vital Signs Date Time Temp Pulse Resp B/P (MAP) Pulse Ox O2 Delivery O2 Flow Rate FiO2 02/04/20 03:54 93 02/04/20 02:56 98.0 58 23 120/58 (78) Nasal Cannula 5.0 98.0 Intake and Output 02/04/20 07:00 Intake Total 120 ml Output Total 3950 ml Balance -3830 ml Intake Oral 120 ml Output Urine Total 3950 ml # Voids 2 Physical Exam Abdomen: Soft, Other (obese) Heart: Regular rate (SR), Other (distant heart sounds ) Extremities: Other (chronic LE lymphedema) General: Alert, Oriented X3, Cooperative, No acute distress HEENT: Atraumatic, Mucous membr. moist/pink Lungs: Other (dimnished) MUSCULOSKELETAL: Osteoarthritic changes both hands Neuro: Normal speech, Sensation intact Psych/Mental Status: Other (FLAT ANXIOUS AFFECT) Skin: Other (LE venous dermatitis) Diagnosis Problem List Problems Medical Problems: (1) Acute exacerbation of CHF (congestive heart failure) Status: Acute (2) Elevated d-dimer Status: Acute (3) Elevated troponin Status: Acute (4) Obesity Status: Acute (5) Suspected 2019 novel coronavirus infection Status: Acute (6) Yeast dermatitis Status: Acute Assessment Assessment Problems Medical Problems: (1) Acute exacerbation of CHF (congestive heart failure) Status: Acute (2) Elevated d-dimer Status: Acute (3) Elevated troponin Status: Acute (4) Obesity Status: Acute (5) Suspected 2019 novel coronavirus infection Status: Acute (6) Yeast dermatitis Status: Acute FINAL IMPRESSION: 1. Anasarca. 2. Acute on chronic diastolic heart failure. 3. Chronic obstructive pulmonary disease. 4. Obstructive sleep apnea. 5. Morbid obesity. 6. Diabetes. 7. Chronic kidney disease. 8. Smoking. 9. Noncompliance. 10. 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 PLAN: Acute on chronic diastolic congestive heart failure-creatinine is 1.8. Continue IV Bumex 2 mg twice daily ECHO 45% ejf,old one renal function improving BIPA and oxygen continue diuresis with iv bumex Ideally need to go to SNU ,pt refusing Hypercapnic resp failure Diabetes mellitus-hemoglobin A1c is 7.7 Plan Plan of Care Problems Medical Problems: (1) Acute exacerbation of CHF (congestive heart failure) Status: Acute (2) Elevated d-dimer Status: Acute (3) Elevated troponin Status: Acute (4) Obesity Status: Acute (5) Suspected 2019 novel coronavirus infection Status: Acute (6) Yeast dermatitis Status: Acute Comment Review of Relevant I have reviewed the following items adolfo (where applicable) has been applied. Labs Laboratory Tests Test 02/03/20 09:10 02/03/20 11:17 02/03/20 16:31 02/03/20 20:18 White Blood Count 7.4 x10^3/uL (4.0-11.0) Red Blood Count 5.36 x10^6/uL (4.30-5.70) Hemoglobin 14.1 g/dL (13.0-17.5) Hematocrit 45.5 % (39.0-53.0) Mean Corpuscular Volume 85 fL (79-100) Mean Corpuscular Hemoglobin 26 pg (25-35) Mean Corpuscular Hemoglobin Concent 31 g/dL (31-37) Red Cell Distribution Width 17.4 % (11.5-14.5) Platelet Count 129 x10^3/uL (140-400) Neutrophils (%) (Auto) 58 % (31-73) Lymphocytes (%) (Auto) 26 % (24-48) Monocytes (%) (Auto) 12 % (0-9) Eosinophils (%) (Auto) 2 % (0-3) Basophils (%) (Auto) 1 % (0-3) Neutrophils # (Auto) 4.3 x10^3/uL (1.8-7.7) Lymphocytes # (Auto) 1.9 x10^3/uL (1.0-4.8) Monocytes # (Auto) 0.9 x10^3/uL (0.0-1.1) Eosinophils # (Auto) 0.1 x10^3/uL (0.0-0.7) Basophils # (Auto) 0.1 x10^3/uL (0.0-0.2) Glucose (Fingerstick) 170 mg/dL (70-99) 161 mg/dL (70-99) 154 mg/dL (70-99) Test 02/04/20 05:30 02/04/20 07:39 White Blood Count 6.9 x10^3/uL (4.0-11.0) Red Blood Count 5.11 x10^6/uL (4.30-5.70) Hemoglobin 13.5 g/dL (13.0-17.5) Hematocrit 43.5 % (39.0-53.0) Mean Corpuscular Volume 85 fL (79-100) Mean Corpuscular Hemoglobin 27 pg (25-35) Mean Corpuscular Hemoglobin Concent 31 g/dL (31-37) Red Cell Distribution Width 17.3 % (11.5-14.5) Platelet Count 131 x10^3/uL (140-400) Neutrophils (%) (Auto) 49 % (31-73) Lymphocytes (%) (Auto) 32 % (24-48) Monocytes (%) (Auto) 15 % (0-9) Eosinophils (%) (Auto) 3 % (0-3) Basophils (%) (Auto) 1 % (0-3) Neutrophils # (Auto) 3.4 x10^3/uL (1.8-7.7) Lymphocytes # (Auto) 2.2 x10^3/uL (1.0-4.8) Monocytes # (Auto) 1.1 x10^3/uL (0.0-1.1) Eosinophils # (Auto) 0.2 x10^3/uL (0.0-0.7) Basophils # (Auto) 0.1 x10^3/uL (0.0-0.2) Sodium Level 141 mmol/L (136-145) Potassium Level 4.4 mmol/L (3.5-5.1) Chloride Level 98 mmol/L (98-107) Carbon Dioxide Level 42 mmol/L (21-32) Anion Gap 1 (6-14) Blood Urea Nitrogen 36 mg/dL (8-26) Creatinine 1.4 mg/dL (0.7-1.3) Estimated GFR (Cockcroft-Gault) 54.3 Glucose Level 103 mg/dL (70-99) Calcium Level 9.1 mg/dL (8.5-10.1) Glucose (Fingerstick) 107 mg/dL (70-99) Microbiology 01/29/20 Blood Culture - Final, Complete NO GROWTH AFTER 5 DAYS Vitals/I & O Vital Sign - Last 24 Hours 8/3102/03/20 02/03/20 02/03/20 10:27 14:00 14:36 17:40 Temp 97.6 98.1 97.6 98.1 Pulse 116 120 120 120 Resp 24 24 B/P (MAP) 114/58 (76) 125/61 125/61 (82) 125/61 Pulse Ox 92 90 O2 Delivery Nasal Cannula Nasal Cannula O2 Flow Rate 5.0 5.0 02/03/20 02/03/20 02/03/20 02/03/20 19:00 19:35 20:12 22:39 Temp 98.2 98.2 Pulse 83 120 Resp 22 B/P (MAP) 106/54 (71) 106/54 Pulse Ox 91 94 O2 Delivery Nasal Cannula Nasal Cannula O2 Flow Rate 5.0 5.0 02/03/20 02/04/20 02/04/20 02/04/20 22:46 00:08 02:56 03:54 Temp 98.1 98.0 98.1 98.0 Pulse 81 58 Resp 21 23 B/P (MAP) 117/56 (76) 120/58 (78) Pulse Ox 92 90 93 93 O2 Delivery Nasal Cannula Nasal Cannula O2 Flow Rate 5.0 5.0 Intake and Output 02/03/20 02/03/20 02/04/20 15:00 23:00 07:00 Intake Total 120 ml 0 ml Output Total 3225 ml 625 ml 100 ml Balance -3225 ml -505 ml -100 ml Justifications for Admission Other Justification ANT LICEA MD Feb 04, 2020 08:36
[2020-02-04 08:48] LABS: BASE EXCESS ABG 15 mmol/L (-3-3); HCO3 ABG 46 mmol/L (21-28); PO2 ABG 80 mmHg (75-108); SAT O2 ABG 95 % (92-99)
[2020-02-04] MEDS: DICLOFENAC SODIUM 1% TOPICAL GEL 100GM TUBE. TP SCH (09:00)
[2020-02-04] MEDS ORDERED: ASPI325T11 PO (09:07)
[2020-02-04] MEDS ORDERED: BUME2TAB3 PO (09:07)
[2020-02-04] MEDS: PANTOPRAZOLE 40 MG TABLET.DR. PO SCH (09:08)
[2020-02-04] MEDS: MULTIVITAMIN with MINERAL TABLET. PO SCH (09:08)
[2020-02-04] MEDS: ASPIRIN ENTERIC COATED 325 MG TABLET.DR. PO SCH (09:08)
[2020-02-04] MEDS: LISINOPRIL 20 MG TABLET PO SCH (09:09)
[2020-02-04] MEDS: CARVEDILOL 12.5 MG TABLET. PO SCH (09:09)
--- NOTE | 2020-02-04 09:09 | SNU/HH DC ---
DISCHARGE WITH HOME HEALTH DISCHARGE INFORMATION: Discharge Date: Feb 04, 2020 Final Diagnosis: Problems Medical Problems: (1) Acute exacerbation of CHF (congestive heart failure) Status: Acute (2) Elevated d-dimer Status: Acute (3) Elevated troponin Status: Acute (4) Obesity Status: Acute (5) Suspected 2018 novel coronavirus infection Status: Acute (6) Yeast dermatitis Status: Acute Condition on Discharge: Stable CODE STATUS: Code Status: Full HOME HEALTH: Face to Face: I certify this patient is under my care and that I, or a nurse practitioner or physician's personal injury legal assistant working with me, had a face to face encounter that meets the physician face to face encounter requirements with this patient on []. Medical Complications: CHF RN For Eval/Treatment: Yes Physical Therapy For: Evalulation/Treatment Occupational Therapy For: Evaluation/Treatment Home Health Aide For: Self-care COUTIERIER For: Community Resources Pt Meets Homebound Status: Unsteady balance w/ amb, POST DISCHARGE ORDERS: Activity Instructions for Disc: No restrictions Weight Bearing Status after Di: No restrictions, Full weight bearing DIET AFTER DISCHARGE: ADA Wound/Incision Care: Keep wound elevated CHECKS AFTER DISCHARGE: Checks after discharge: Check blood press - daily, Check your Temp as needed, Weigh Yourself Daily TREATMENT/EQUIPMENT ORDERS: Adaptive Equipment Issued: None, Front wheeled walker Discharge Respiratory Equipmen: Oxygen, BiPAP CERTIFICATION STATEMENT: Certification Statement: Certification Statement: Based on the above finding, I certify that this patient is confined to the home and needs intermittent snf care, physical therapy and/or speech therapy, or continues to need occupational therapy.~ This patient is under my care, and I have initiated the establishment of the plan of care.~ This patient will be followed by myself or a community physician who will periodically review the plan of care. Home Meds Active Scripts [Fluconazole] 100 MG TABLET No Conflict Check, 400 MG PO DAILY for yeast for 10 Days, #40 TAB Prov:ANT LICEA MD 08/19/19 Hydralazine Hcl (HYDRALAZINE HCL) 50 Mg Tablet, 50 MG PO TID for htn for 90 Days, #270 TAB Prov:ANT LICEA MD 08/19/19 Potassium Chloride (K-Tab ER) 20 Meq Tablet.er, 20 MEQ PO BID for chf for 30 Days, #60 TAB.SR Prov:ANT LICEA MD 08/19/19 Furosemide (LASIX) 80 Mg Tablet, 1 TAB PO BID for chf for 30 Days, #60 TAB 0 Ref ills Prov:ANT LICEA MD 08/19/19 Reported Medications Multivitamin (ONE-A-DAY ESSENTIAL) 1 Each Tablet, 1 TAB PO DAILY for supplement for 30 Days, #30 TAB 0 Refills 08/15/19 Metformin Hcl (METFORMIN HCL) 500 Mg Tablet, 2 TAB PO BIDWMEALS for ANTI- DIABETIC, TAB 0 Refills 08/15/19 Carvedilol (CARVEDILOL ) 12.5 Mg Tablet, 2 TAB PO BIDWMEALS for CARDIAC, TAB 08/15/19 Lisinopril (LISINOPRIL) 20 Mg Tablet, 1 TAB PO DAILY for heart, #30 TAB 5 Refills 08/15/19 ANT LICEA MD Feb 04, 2020 09:09
[2020-02-04] MEDS: MINERAL OIL/PETROLATUM TOPICAL CREAM 113GM JAR. TP SCH (09:10)
[2020-02-04] MEDS ORDERED: BUMETANIDE 1 MG TABLET. PO SCH (09:30)
[2020-02-04 09:41] LABS: PCO2 ABG 87 mmHg (35-46)
[2020-02-04 09:42] LABS: FIO2 ABG 40/5L NC
--- NOTE | 2020-02-04 10:03 | PDOC ---
PULMONARY PROGRESS NOTES DATE: 02/04/20 TIME: 10:01 Subjective Patient not short of air Wore BIPAP last night Now on 5 liters N/C Vitals Vital Signs Date Time Temp Pulse Resp B/P (MAP) Pulse Ox O2 Delivery O2 Flow Rate FiO2 02/04/20 09:09 64 127/69 02/04/20 07:00 97.9 22 96 Nasal Cannula 5.0 97.9 ROS: No Nausea, No Chest Pain, No Abdominal Pain, No Increase Cough General: Lethargic HEENT: Other Lungs: Clear Cardiovascular: S1, S2 Abdomen: Soft, Non-tender, Other (obese ) Extremities: Other (edema BLE ) Labs Laboratory Tests Test 02/02/20 10:40 02/02/20 11:58 02/02/20 17:19 02/02/20 21:07 Sodium Level 139 mmol/L (136-145) Potassium Level 5.1 mmol/L (3.5-5.1) Chloride Level 100 mmol/L (98-107) Carbon Dioxide Level 41 mmol/L (21-32) Anion Gap (6-14) Blood Urea Nitrogen 37 mg/dL (8-26) Creatinine 1.4 mg/dL (0.7-1.3) Estimated GFR (Cockcroft-Gault) 54.3 Glucose Level 172 mg/dL (70-99) Calcium Level 9.2 mg/dL (8.5-10.1) Glucose (Fingerstick) 199 mg/dL (70-99) 166 mg/dL (70-99) 211 mg/dL (70-99) Test 02/03/20 05:30 02/03/20 07:30 02/03/20 09:10 02/03/20 11:17 Sodium Level 139 mmol/L (136-145) Potassium Level 4.8 mmol/L (3.5-5.1) Chloride Level 99 mmol/L (98-107) Carbon Dioxide Level 40 mmol/L (21-32) Anion Gap 0 (6-14) Blood Urea Nitrogen 36 mg/dL (8-26) Creatinine 1.3 mg/dL (0.7-1.3) Estimated GFR (Cockcroft-Gault) 59.2 Glucose Level 148 mg/dL (70-99) Calcium Level 9.1 mg/dL (8.5-10.1) Magnesium Level 2.0 mg/dL (1.8-2.4) Glucose (Fingerstick) 105 mg/dL (70-99) 170 mg/dL (70-99) White Blood Count 7.4 x10^3/uL (4.0-11.0) Red Blood Count 5.36 x10^6/uL (4.30-5.70) Hemoglobin 14.1 g/dL (13.0-17.5) Hematocrit 45.5 % (39.0-53.0) Mean Corpuscular Volume 85 fL (79-100) Mean Corpuscular Hemoglobin 26 pg (25-35) Mean Corpuscular Hemoglobin Concent 31 g/dL (31-37) Red Cell Distribution Width 17.4 % (11.5-14.5) Platelet Count 129 x10^3/uL (140-400) Neutrophils (%) (Auto) 58 % (31-73) Lymphocytes (%) (Auto) 26 % (24-48) Monocytes (%) (Auto) 12 % (0-9) Eosinophils (%) (Auto) 2 % (0-3) Basophils (%) (Auto) 1 % (0-3) Neutrophils # (Auto) 4.3 x10^3/uL (1.8-7.7) Lymphocytes # (Auto) 1.9 x10^3/uL (1.0-4.8) Monocytes # (Auto) 0.9 x10^3/uL (0.0-1.1) Eosinophils # (Auto) 0.1 x10^3/uL (0.0-0.7) Basophils # (Auto) 0.1 x10^3/uL (0.0-0.2) Test 02/03/20 16:31 02/03/20 20:18 02/04/20 05:30 02/04/20 07:39 Glucose (Fingerstick) 161 mg/dL (70-99) 154 mg/dL (70-99) 107 mg/dL (70-99) White Blood Count 6.9 x10^3/uL (4.0-11.0) Red Blood Count 5.11 x10^6/uL (4.30-5.70) Hemoglobin 13.5 g/dL (13.0-17.5) Hematocrit 43.5 % (39.0-53.0) Mean Corpuscular Volume 85 fL (79-100) Mean Corpuscular Hemoglobin 27 pg (25-35) Mean Corpuscular Hemoglobin Concent 31 g/dL (31-37) Red Cell Distribution Width 17.3 % (11.5-14.5) Platelet Count 131 x10^3/uL (140-400) Neutrophils (%) (Auto) 49 % (31-73) Lymphocytes (%) (Auto) 32 % (24-48) Monocytes (%) (Auto) 15 % (0-9) Eosinophils (%) (Auto) 3 % (0-3) Basophils (%) (Auto) 1 % (0-3) Neutrophils # (Auto) 3.4 x10^3/uL (1.8-7.7) Lymphocytes # (Auto) 2.2 x10^3/uL (1.0-4.8) Monocytes # (Auto) 1.1 x10^3/uL (0.0-1.1) Eosinophils # (Auto) 0.2 x10^3/uL (0.0-0.7) Basophils # (Auto) 0.1 x10^3/uL (0.0-0.2) Sodium Level 141 mmol/L (136-145) Potassium Level 4.4 mmol/L (3.5-5.1) Chloride Level 98 mmol/L (98-107) Carbon Dioxide Level 42 mmol/L (21-32) Anion Gap 1 (6-14) Blood Urea Nitrogen 36 mg/dL (8-26) Creatinine 1.4 mg/dL (0.7-1.3) Estimated GFR (Cockcroft-Gault) 54.3 Glucose Level 103 mg/dL (70-99) Calcium Level 9.1 mg/dL (8.5-10.1) Test 02/04/20 08:00 O2 Saturation 95 % (92-99) Arterial Blood pH 7.34 (7.35-7.45) Arterial Blood pCO2 at Patient Temp 87 mmHg (35-46) Arterial Blood pO2 at Patient Temp 80 mmHg (75-108) Arterial Blood HCO3 46 mmol/L (21-28) Arterial Blood Base Excess 15 mmol/L (-3-3) FiO2 40/5l nc Laboratory Tests Test 02/03/20 11:17 02/03/20 16:31 02/03/20 20:18 02/04/20 05:30 Glucose (Fingerstick) 170 mg/dL (70-99) 161 mg/dL (70-99) 154 mg/dL (70-99) White Blood Count 6.9 x10^3/uL (4.0-11.0) Red Blood Count 5.11 x10^6/uL (4.30-5.70) Hemoglobin 13.5 g/dL (13.0-17.5) Hematocrit 43.5 % (39.0-53.0) Mean Corpuscular Volume 85 fL (79-100) Mean Corpuscular Hemoglobin 27 pg (25-35) Mean Corpuscular Hemoglobin Concent 31 g/dL (31-37) Red Cell Distribution Width 17.3 % (11.5-14.5) Platelet Count 131 x10^3/uL (140-400) Neutrophils (%) (Auto) 49 % (31-73) Lymphocytes (%) (Auto) 32 % (24-48) Monocytes (%) (Auto) 15 % (0-9) Eosinophils (%) (Auto) 3 % (0-3) Basophils (%) (Auto) 1 % (0-3) Neutrophils # (Auto) 3.4 x10^3/uL (1.8-7.7) Lymphocytes # (Auto) 2.2 x10^3/uL (1.0-4.8) Monocytes # (Auto) 1.1 x10^3/uL (0.0-1.1) Eosinophils # (Auto) 0.2 x10^3/uL (0.0-0.7) Basophils # (Auto) 0.1 x10^3/uL (0.0-0.2) Sodium Level 141 mmol/L (136-145) Potassium Level 4.4 mmol/L (3.5-5.1) Chloride Level 98 mmol/L (98-107) Carbon Dioxide Level 42 mmol/L (21-32) Anion Gap 1 (6-14) Blood Urea Nitrogen 36 mg/dL (8-26) Creatinine 1.4 mg/dL (0.7-1.3) Estimated GFR (Cockcroft-Gault) 54.3 Glucose Level 103 mg/dL (70-99) Calcium Level 9.1 mg/dL (8.5-10.1) Test 02/04/20 07:39 02/04/20 08:00 Glucose (Fingerstick) 107 mg/dL (70-99) O2 Saturation 95 % (92-99) Arterial Blood pH 7.34 (7.35-7.45) Arterial Blood pCO2 at Patient Temp 87 mmHg (35-46) Arterial Blood pO2 at Patient Temp 80 mmHg (75-108) Arterial Blood HCO3 46 mmol/L (21-28) Arterial Blood Base Excess 15 mmol/L (-3-3) FiO2 40/5l nc Medications Active Scripts Medications Dose Route/Sig Max Daily Dose Days Date Category [Fluconazole] 100 MG Tablet 400 Mg PO DAILY 10 08/19/19 Rx Hydralazine Hcl 50 Mg Tablet 50 Mg PO TID 90 08/19/19 Rx K-Tab ER (Potassium Chloride) 20 Meq Tablet.er 20 Meq PO BID 30 08/19/19 Rx Lasix (Furosemide) 80 Mg Tablet 1 Tab PO BID 30 08/19/19 Rx One-A-Day Essential (Multivitamin) 1 Each Tablet 1 Tab PO DAILY 30 08/15/19 Reported Metformin Hcl 500 Mg Tablet 2 Tab PO BIDWMEALS 08/15/19 Reported Carvedilol (Carvedilol) 12.5 Mg Tablet 2 Tab PO BIDWMEALS 08/15/19 Reported Lisinopril 20 Mg Tablet 1 Tab PO DAILY 08/15/19 Reported Comments CXR 02/01/20 IMPRESSION: * Bilateral pulmonic opacities which could be from bilateral infiltrate or edema. * Enlarged cardiomediastinal silhouette is again seen. Impression . IMPRESSION: 1. Acute hypoxic hypercapnic respiratory failure, likely secondary to acute on chronic congestive heart failure in a patient who has ejection fraction of 45%. He probably also has coexisting right heart failure as well. 2. Underlying morbid obesity with suspected obesity hypoventilation syndrome and obstructive sleep apnea. His BMI is 76. He has elevated bicarb suggesting chronic hypercapnia. 3. Chronic lymphedema of the lower extremity/venous stasis. 4. Low clinical suspicion for COVID.--- COVID negative 5. Abnormal D-dimer level of 1.1. Venous Doppler was negative. Clinically, low suspicion for thromboembolic disease. Plan . ABG reviewed from this am. wean FIO2 to 3 litres Possible discharge today., patient refuses to go to skilled unit BIPAP at night and PRN 6 min walk test continue diuresis with Bumex Follow cardiology recs COVID is negative May benefit from sleep study as an outpatient. will benefit from BIPAP/Trilogy DVT/GI PPX D/W JAMES TERAN MD Feb 04, 2020 10:03
--- NOTE | 2020-02-04 10:57 | NUR ---
Non administered PO dose of Bumex. This RN had previously administered IV dose of Bumex this AM
[2020-02-04 11:00] VITALS: BP 132/64
--- NOTE | 2020-02-04 11:44 | PDOC ---
DATE OF SERVICE DATE: 02/04/20 TIME: 11:39 SUBJECTIVE ROS No complaints, stable OBJECTIVE Vital Signs Vital Signs Date Time Temp Pulse Resp B/P (MAP) Pulse Ox O2 Delivery O2 Flow Rate FiO2 02/04/20 11:00 98.3 117 22 132/64 (86) 91 Nasal Cannula 3.0 98.3 I & 0 Intake and Output 02/04/20 07:00 Intake Total 120 ml Output Total 3950 ml Balance -3830 ml Intake Oral 120 ml Output Urine Total 3950 ml # Voids 2 PHYSICAL EXAM Physical Exam General: Alert, Oriented X3, Cooperative, No acute distress HEENT: Atraumatic, Mucous membr. moist/pink Lungs: dimnished, Non labored Abdomen: Obese Heart: Regular rate (SR), distant heart sounds ) Extremities: chronic LE lymphedema Neuro: Normal speech, Sensation intact Skin: LE venous dermatitis No acuña DIAGNOSIS/ASSESSMENT Assessment & Plan ADINA- Cardiorenal Cr 2.0-->1.4 Supportive care, avoid Nephrotoxins HyperKalemia - resolved CKD stage 2 with Cr 1.2 ACute Hypoxic Resp failure CHF - Acute on Chronic Diastolic Switched to PO Bumex BID , OP follow up with cardiology Morbid Obesity - ambulatory Chronic LE Lymphedema DM II Dw RN COMMENT/RELEVANT DATA Meds Current Medications Medications (Trade) Dose Ordered Sig/Michelle Start Time Stop Time Status Last Admin Dose Admin Aspirin (Brijesh Aspirin) 325 mg 1X ONCE 01/29/20 12:30 01/29/20 12:31 DC 01/29/20 14:30 325 MG Aspirin (Ecotrin) 325 mg DAILYWBKFT 01/30/20 13:00 02/04/20 09:08 325 MG Bumetanide (Bumex) 2 mg BID 02/04/20 09:30 Carvedilol (Coreg) 25 mg BIDWMEALS 01/30/20 08:00 02/04/20 09:09 25 MG Dextrose (Dextrose 50%-Water Syringe) 12.5 gm PRN Q15MIN PRN 01/29/20 20:15 Diclofenac Sodium (Voltaren) 1 jason BID 01/31/20 14:00 02/02/20 21:11 1 JASON Enoxaparin Sodium (Lovenox 60mg Syringe) 60 mg Q12HR 01/31/20 10:00 02/04/20 09:10 60 MG Enoxaparin Sodium (Lovenox Per Pharmacy Prophylaxis Dosing) 1 each PRN DAILY PRN 01/31/20 09:00 Heparin Sodium (Porcine) (Heparin Sodium) 6,000 unit PRN Q6HRS PRN 01/29/20 15:45 01/30/20 12:19 DC 01/30/20 09:10 6,000 UNIT Heparin Sodium/ Dextrose 250 ml @ 0 mls/hr CONT PRN 01/29/20 15:45 01/30/20 12:19 DC 01/30/20 09:10 24.3 MLS/HR Hydralazine HCl (Apresoline) 50 mg TID 01/29/20 21:00 02/04/20 09:08 50 MG Insulin Human Lispro (HumaLOG) 0-5 UNITS TIDWMEALS 01/30/20 08:00 02/03/20 17:43 2 UNITS Lisinopril (Prinivil) 20 mg 1X ONCE 02/01/20 23:45 02/01/20 23:46 DC 02/01/20 23:41 20 MG Magnesium Sulfate 50 ml @ 25 mls/hr 1X ONCE 01/31/20 13:30 01/31/20 15:29 DC 01/31/20 14:17 25 MLS/HR Multi-Ingredient Ointment (Hydrocerin Cream) 1 jaosn BID 01/31/20 14:00 02/04/20 09:10 1 JASON Multivitamins (Thera M Plus) 1 tab DAILY 02/01/20 09:00 02/04/20 09:08 1 TAB Nystatin (Nystop) 1 jason 1X ONCE 01/29/20 13:45 01/29/20 13:46 DC 01/29/20 16:50 1 JASON Ondansetron HCl (Zofran) 4 mg PRN Q6HRS PRN 02/01/20 11:15 Pantoprazole Sodium (Protonix) 40 mg DAILYAC 02/01/20 12:15 02/04/20 09:08 40 MG Potassium Chloride (Klor-Con) 40 meq DAILYWBKFT 01/30/20 08:00 02/01/20 12:12 DC 01/31/20 08:55 40 MEQ Lab Laboratory Tests Test 02/03/20 16:31 02/03/20 20:18 9/1/20 05:30 02/04/20 07:39 Glucose (Fingerstick) 161 mg/dL (70-99) 154 mg/dL (70-99) 107 mg/dL (70-99) White Blood Count 6.9 x10^3/uL (4.0-11.0) Red Blood Count 5.11 x10^6/uL (4.30-5.70) Hemoglobin 13.5 g/dL (13.0-17.5) Hematocrit 43.5 % (39.0-53.0) Mean Corpuscular Volume 85 fL (79-100) Mean Corpuscular Hemoglobin 27 pg (25-35) Mean Corpuscular Hemoglobin Concent 31 g/dL (31-37) Red Cell Distribution Width 17.3 % (11.5-14.5) Platelet Count 131 x10^3/uL (140-400) Neutrophils (%) (Auto) 49 % (31-73) Lymphocytes (%) (Auto) 32 % (24-48) Monocytes (%) (Auto) 15 % (0-9) Eosinophils (%) (Auto) 3 % (0-3) Basophils (%) (Auto) 1 % (0-3) Neutrophils # (Auto) 3.4 x10^3/uL (1.8-7.7) Lymphocytes # (Auto) 2.2 x10^3/uL (1.0-4.8) Monocytes # (Auto) 1.1 x10^3/uL (0.0-1.1) Eosinophils # (Auto) 0.2 x10^3/uL (0.0-0.7) Basophils # (Auto) 0.1 x10^3/uL (0.0-0.2) Sodium Level 141 mmol/L (136-145) Potassium Level 4.4 mmol/L (3.5-5.1) Chloride Level 98 mmol/L (98-107) Carbon Dioxide Level 42 mmol/L (21-32) Anion Gap 1 (6-14) Blood Urea Nitrogen 36 mg/dL (8-26) Creatinine 1.4 mg/dL (0.7-1.3) Estimated GFR (Cockcroft-Gault) 54.3 Glucose Level 103 mg/dL (70-99) Calcium Level 9.1 mg/dL (8.5-10.1) Test 02/04/20 08:00 O2 Saturation 95 % (92-99) Arterial Blood pH 7.34 (7.35-7.45) Arterial Blood pCO2 at Patient Temp 87 mmHg (35-46) Arterial Blood pO2 at Patient Temp 80 mmHg (75-108) Arterial Blood HCO3 46 mmol/L (21-28) Arterial Blood Base Excess 15 mmol/L (-3-3) FiO2 40/5l nc Results All relevant outside records, renal labs, imaging studies, telemetry/EKG's were reviewed. Justicifation of Admission Dx: Justifications for Admission: Justification of Admission Dx: Yes VASHTI ANTONY MD Feb 04, 2020 11:44
--- NOTE | 2020-02-04 11:56 | NUR ---
SS following up with discharge planning. SS reviewed pt chart and discussed with pt RN. Discharge order received for home healthcare. Nurse navigator met with pt and discussed. Pt agreeable to [facility], ; fax [phone]. Discharge orders and referral phoned and faxed to [facility]. Script for oxygen and BIPAP received. SS phoned and faxed scripts and clinical to [facility], ; fax [phone]. Clinical received. Pt qualified for Trilogy machine through [employer]. Orders to be completed through Pulmonology. Pt will need prio authorization through his insurance prior to receiving Trilogy machine. SS met with pt and provided oxygen tank for home. Pt's RN notified. Pt reported that he has transportation to home.
--- NOTE | 2020-02-04 14:35 | PDOC ---
PROGRESS NOTES Date of Service DATE: 02/04/20 TIME: 14:33 Subjective Subjective No new complaints. Objective Objective Vital Signs Date Time Temp Pulse Resp B/P (MAP) Pulse Ox O2 Delivery O2 Flow Rate FiO2 02/04/20 11:00 98.3 117 22 132/64 (86) 91 Nasal Cannula 3.0 98.3 Intake and Output 02/04/20 07:00 Intake Total 120 ml Output Total 3950 ml Balance -3830 ml Intake Oral 120 ml Output Urine Total 3950 ml # Voids 2 Physical Exam Physical Exam He is comfortable sitting up in bedside chair and planning to go home. Assessment Assessment Problems Medical Problems: (1) Acute exacerbation of CHF (congestive heart failure) Status: Acute (2) Elevated d-dimer Status: Acute (3) Elevated troponin Status: Acute (4) Obesity Status: Acute (5) Suspected 2019 novel coronavirus infection Status: Acute (6) Yeast dermatitis Status: Acute Plan Plan of Care Agree with plans for home with home health follow up when medically stable. Comment Review of Relevant I have reviewed the following items adolfo (where applicable) has been applied. Labs Laboratory Tests Test 02/02/20 17:19 02/02/20 21:07 02/03/20 05:30 02/03/20 07:30 Glucose (Fingerstick) 166 mg/dL (70-99) 211 mg/dL (70-99) 105 mg/dL (70-99) Sodium Level 139 mmol/L (136-145) Potassium Level 4.8 mmol/L (3.5-5.1) Chloride Level 99 mmol/L (98-107) Carbon Dioxide Level 40 mmol/L (21-32) Anion Gap 0 (6-14) Blood Urea Nitrogen 36 mg/dL (8-26) Creatinine 1.3 mg/dL (0.7-1.3) Estimated GFR (Cockcroft-Gault) 59.2 Glucose Level 148 mg/dL (70-99) Calcium Level 9.1 mg/dL (8.5-10.1) Magnesium Level 2.0 mg/dL (1.8-2.4) Test 02/03/20 09:10 02/03/20 11:17 02/03/20 16:31 02/03/20 20:18 White Blood Count 7.4 x10^3/uL (4.0-11.0) Red Blood Count 5.36 x10^6/uL (4.30-5.70) Hemoglobin 14.1 g/dL (13.0-17.5) Hematocrit 45.5 % (39.0-53.0) Mean Corpuscular Volume 85 fL (79-100) Mean Corpuscular Hemoglobin 26 pg (25-35) Mean Corpuscular Hemoglobin Concent 31 g/dL (31-37) Red Cell Distribution Width 17.4 % (11.5-14.5) Platelet Count 129 x10^3/uL (140-400) Neutrophils (%) (Auto) 58 % (31-73) Lymphocytes (%) (Auto) 26 % (24-48) Monocytes (%) (Auto) 12 % (0-9) Eosinophils (%) (Auto) 2 % (0-3) Basophils (%) (Auto) 1 % (0-3) Neutrophils # (Auto) 4.3 x10^3/uL (1.8-7.7) Lymphocytes # (Auto) 1.9 x10^3/uL (1.0-4.8) Monocytes # (Auto) 0.9 x10^3/uL (0.0-1.1) Eosinophils # (Auto) 0.1 x10^3/uL (0.0-0.7) Basophils # (Auto) 0.1 x10^3/uL (0.0-0.2) Glucose (Fingerstick) 170 mg/dL (70-99) 161 mg/dL (70-99) 154 mg/dL (70-99) Test 02/04/20 05:30 02/04/20 07:39 02/04/20 08:00 02/04/20 11:53 White Blood Count 6.9 x10^3/uL (4.0-11.0) Red Blood Count 5.11 x10^6/uL (4.30-5.70) Hemoglobin 13.5 g/dL (13.0-17.5) Hematocrit 43.5 % (39.0-53.0) Mean Corpuscular Volume 85 fL (79-100) Mean Corpuscular Hemoglobin 27 pg (25-35) Mean Corpuscular Hemoglobin Concent 31 g/dL (31-37) Red Cell Distribution Width 17.3 % (11.5-14.5) Platelet Count 131 x10^3/uL (140-400) Neutrophils (%) (Auto) 49 % (31-73) Lymphocytes (%) (Auto) 32 % (24-48) Monocytes (%) (Auto) 15 % (0-9) Eosinophils (%) (Auto) 3 % (0-3) Basophils (%) (Auto) 1 % (0-3) Neutrophils # (Auto) 3.4 x10^3/uL (1.8-7.7) Lymphocytes # (Auto) 2.2 x10^3/uL (1.0-4.8) Monocytes # (Auto) 1.1 x10^3/uL (0.0-1.1) Eosinophils # (Auto) 0.2 x10^3/uL (0.0-0.7) Basophils # (Auto) 0.1 x10^3/uL (0.0-0.2) Sodium Level 141 mmol/L (136-145) Potassium Level 4.4 mmol/L (3.5-5.1) Chloride Level 98 mmol/L (98-107) Carbon Dioxide Level 42 mmol/L (21-32) Anion Gap 1 (6-14) Blood Urea Nitrogen 36 mg/dL (8-26) Creatinine 1.4 mg/dL (0.7-1.3) Estimated GFR (Cockcroft-Gault) 54.3 Glucose Level 103 mg/dL (70-99) Calcium Level 9.1 mg/dL (8.5-10.1) Glucose (Fingerstick) 107 mg/dL (70-99) 153 mg/dL (70-99) O2 Saturation 95 % (92-99) Arterial Blood pH 7.34 (7.35-7.45) Arterial Blood pCO2 at Patient Temp 87 mmHg (35-46) Arterial Blood pO2 at Patient Temp 80 mmHg (75-108) Arterial Blood HCO3 46 mmol/L (21-28) Arterial Blood Base Excess 15 mmol/L (-3-3) FiO2 40/5l nc Laboratory Tests Test 02/03/20 16:31 02/03/20 20:18 02/04/20 05:30 02/04/20 07:39 Glucose (Fingerstick) 161 mg/dL (70-99) 154 mg/dL (70-99) 107 mg/dL (70-99) White Blood Count 6.9 x10^3/uL (4.0-11.0) Red Blood Count 5.11 x10^6/uL (4.30-5.70) Hemoglobin 13.5 g/dL (13.0-17.5) Hematocrit 43.5 % (39.0-53.0) Mean Corpuscular Volume 85 fL (79-100) Mean Corpuscular Hemoglobin 27 pg (25-35) Mean Corpuscular Hemoglobin Concent 31 g/dL (31-37) Red Cell Distribution Width 17.3 % (11.5-14.5) Platelet Count 131 x10^3/uL (140-400) Neutrophils (%) (Auto) 49 % (31-73) Lymphocytes (%) (Auto) 32 % (24-48) Monocytes (%) (Auto) 15 % (0-9) Eosinophils (%) (Auto) 3 % (0-3) Basophils (%) (Auto) 1 % (0-3) Neutrophils # (Auto) 3.4 x10^3/uL (1.8-7.7) Lymphocytes # (Auto) 2.2 x10^3/uL (1.0-4.8) Monocytes # (Auto) 1.1 x10^3/uL (0.0-1.1) Eosinophils # (Auto) 0.2 x10^3/uL (0.0-0.7) Basophils # (Auto) 0.1 x10^3/uL (0.0-0.2) Sodium Level 141 mmol/L (136-145) Potassium Level 4.4 mmol/L (3.5-5.1) Chloride Level 98 mmol/L (98-107) Carbon Dioxide Level 42 mmol/L (21-32) Anion Gap 1 (6-14) Blood Urea Nitrogen 36 mg/dL (8-26) Creatinine 1.4 mg/dL (0.7-1.3) Estimated GFR (Cockcroft-Gault) 54.3 Glucose Level 103 mg/dL (70-99) Calcium Level 9.1 mg/dL (8.5-10.1) Test 02/04/20 08:00 02/04/20 11:53 O2 Saturation 95 % (92-99) Arterial Blood pH 7.34 (7.35-7.45) Arterial Blood pCO2 at Patient Temp 87 mmHg (35-46) Arterial Blood pO2 at Patient Temp 80 mmHg (75-108) Arterial Blood HCO3 46 mmol/L (21-28) Arterial Blood Base Excess 15 mmol/L (-3-3) FiO2 40/5l nc Glucose (Fingerstick) 153 mg/dL (70-99) Microbiology 01/29/20 Blood Culture - Final, Complete NO GROWTH AFTER 5 DAYS Medications Current Medications Aspirin (Brijesh Aspirin) 325 mg 1X ONCE PO Last administered on 01/29/20at 14:30; Start 01/29/20 at 12:30; Stop 01/29/20 at 12:31; Status DC Nystatin (Nystop) 1 jason 1X ONCE TP Last administered on 01/29/20at 16:50; Start 01/29/20 at 13:45; Stop 01/29/20 at 13:46; Status DC Bumetanide (Bumex) 0.5 mg 1X ONCE IV ; Start 01/29/20 at 15:45; Stop 01/29/20 at 15:44; Status DC Heparin Sodium (Porcine) (Heparin Sodium) 4,000 unit 1X ONCE IV Last administered on 01/29/20at 16:55; Start 01/29/20 at 15:45; Stop 01/30/20 at 12:1 9; Status DC Heparin Sodium/ Dextrose 250 ml @ 0 mls/hr CONT PRN IV PER PROTOCOL Last administered on 01/30/20at 09:10; Start 01/29/20 at 15:45; Stop 01/30/20 at 12:19; Status DC Heparin Sodium (Porcine) (Heparin Sodium) 6,000 unit PRN Q6HRS PRN IV FOR UFH LEVEL LESS THAN 0.2 Last administered on 01/30/20at 09:10; Start 01/29/20 at 15:45; Stop 01/30/20 at 12:19; Status DC Ondansetron HCl (Zofran) 4 mg PRN Q8HRS PRN IV NAUSEA/VOMITING; Start 01/29/20 at 15:45; Stop 01/30/20 at 15:44; Status DC Bumetanide (Bumex) 1 mg 1X ONCE IV Last administered on 01/29/20at 16:54; Start 01/29/20 at 15:45; Stop 01/29/20 at 15:49; Status DC Carvedilol (Coreg) 25 mg BIDWMEALS PO Last administered on 02/04/20at 09:09; Start 01/30/20 at 08:00 Hydralazine HCl (Apresoline) 50 mg TID PO Last administered on 02/04/20at 09:08; Start 01/29/20 at 21:00 Lisinopril (Prinivil) 20 mg DAILY PO Last administered on 02/04/20at 09:09; Start 01/30/20 at 09:00 Potassium Chloride (Klor-Con) 40 meq DAILYWBKFT PO Last administered on 01/31/20at 08:55; Start 01/30/20 at 08:00; Stop 02/01/20 at 12:12; Status DC Bumetanide (Bumex) 1 mg BID92 IV Last administered on 01/31/20at 08:53; Start 01/29/20 at 20:00; Stop 01/31/20 at 11:39; Status DC Insulin Human Lispro (HumaLOG) 0-5 UNITS TIDWMEALS SQ Last administered on 02/03/20at 17:43; Start 01/30/20 at 08:00 Dextrose (Dextrose 50%-Water Syringe) 12.5 gm PRN Q15MIN PRN IV SEE COMMENTS; Start 01/29/20 at 20:15 Aspirin (Ecotrin) 325 mg DAILYWBKFT PO Last administered on 02/04/20at 09:08; Start 01/30/20 at 13:00 Enoxaparin Sodium (Lovenox Per Pharmacy Prophylaxis Dosing) 1 each PRN DAILY PRN MC SEE COMMENTS; Start 01/31/20 at 09:00 Enoxaparin Sodium (Lovenox 60mg Syringe) 60 mg Q12HR SQ Last administered on 02/04/20at 09:10; Start 01/31/20 at 10:00 Bumetanide (Bumex) 2 mg BID92 IV Last administered on 02/03/20at 14:32; Start 01/31/20 at 14:00; Stop 02/04/20 at 09:10; Status DC Magnesium Sulfate 50 ml @ 25 mls/hr 1X ONCE IV Last administered on 01/31/20at 14:17; Start 01/31/20 at 13:30; Stop 01/31/20 at 15:29; Status DC Diclofenac Sodium (Voltaren) 1 jason BID TP Last administered on 02/02/20at 21:11; Start 01/31/20 at 14:00 Multi-Ingredient Ointment (Hydrocerin Cream) 1 jason BID TP Last administered on 02/04/20at 09:10; Start 01/31/20 at 14:00 Multivitamins (Thera M Plus) 1 tab DAILY PO Last administered on 02/04/20at 09:08; Start 02/01/20 at 09:00 Ondansetron HCl (Zofran) 4 mg PRN Q6HRS PRN IVP NAUSEA/VOMITING; Start 02/01/20 at 11:15 Pantoprazole Sodium (Protonix) 40 mg DAILYAC PO Last administered on 02/04/20at 09:08; Start 02/01/20 at 12:15 Lisinopril (Prinivil) 20 mg 1X ONCE PO Last administered on 02/01/20at 23:41; Start 02/01/20 at 23:45; Stop 02/01/20 at 23:46; Status DC Bumetanide (Bumex) 2 mg BID PO ; Start 02/04/20 at 09:30 Active Scripts Active Bumetanide 2 Mg Tablet 2 Mg PO BID 30 Days Aspirin Ec (Aspirin) 325 Mg Tablet.dr 325 Mg PO DAILYWBKFT 30 Days [Fluconazole] 100 MG Tablet 400 Mg PO DAILY 10 Days Hydralazine Hcl 50 Mg Tablet 50 Mg PO TID 90 Days K-Tab ER (Potassium Chloride) 20 Meq Tablet.er 20 Meq PO BID 30 Days Reported One-A-Day Essential (Multivitamin) 1 Each Tablet 1 Tab PO DAILY 30 Days Metformin Hcl 500 Mg Tablet 2 Tab PO BIDWMEALS Carvedilol (Carvedilol) 12.5 Mg Tablet 2 Tab PO BIDWMEALS Lisinopril 20 Mg Tablet 1 Tab PO DAILY Vitals/I & O Vital Sign - Last 24 Hours 02/03/20 02/03/20 02/03/20 02/03/20 14:36 17:40 19:00 19:35 Temp 98.1 98.2 98.1 98.2 Pulse 120 120 83 Resp 24 22 B/P (MAP) 125/61 (82) 125/61 106/54 (71) Pulse Ox 90 91 O2 Delivery Nasal Cannula Nasal Cannula Nasal Cannula O2 Flow Rate 5.0 5.0 5.0 02/03/20 02/03/20 02/03/20 02/04/20 20:12 22:39 22:46 00:08 Temp 98.1 98.1 Pulse 120 81 Resp 21 B/P (MAP) 106/54 117/56 (76) Pulse Ox 94 92 90 O2 Delivery Nasal Cannula O2 Flow Rate 5.0 02/04/20 02/04/20 02/04/20 02/04/20 02:56 03:54 07:00 08:00 Temp 98.0 97.9 98.0 97.9 Pulse 58 64 Resp 23 22 B/P (MAP) 120/58 (78) 127/69 (88) Pulse Ox 93 93 96 O2 Delivery Nasal Cannula Nasal Cannula O2 Flow Rate 5.0 5.0 5.0 02/04/20 02/04/20 02/04/20 02/04/20 08:00 08:15 09:08 09:09 Pulse 64 64 B/P (MAP) 127/69 127/69 Pulse Ox 96 O2 Delivery Nasal Cannula Nasal Cannula O2 Flow Rate 3.0 5.0 02/04/20 02/04/20 09:09 11:00 Temp 98.3 98.3 Pulse 64 117 Resp 22 B/P (MAP) 127/69 132/64 (86) Pulse Ox 91 O2 Delivery Nasal Cannula O2 Flow Rate 3.0 Intake and Output 02/03/20 02/03/20 02/04/20 15:00 23:00 07:00 Intake Total 120 ml 0 ml Output Total 3225 ml 625 ml 100 ml Balance -3225 ml -505 ml -100 ml Justifications for Admission Other Justification RAMYA LIRA MD Feb 04, 2020 14:34
--- NOTE | 2020-02-04 14:55 | NUR ---
Discharge Note: FRANCISCO JAVIER HAYES Discharge instructions and discharge home medications reviewed with Patient and a copy given. All questions have been answered and understanding verbalized. The following instructions and handouts were given: discharge medication list, follow up instructions, oxygen instructions, wound care, home health, PT/OT Discontinued lines and drains: peripheral IV discontinued, dressing clean, dry and intact. Patient discharged to home with home health and family via wheelchair
--- NOTE | 2020-02-05 15:39 | PDOC ---
Provider Note Date of Service: DATE: 02/05/20 TIME: 15:38 Provider Note Discharge summary dictated.#[id number] Justifications for Admission Other Justification ANT LICEA MD Feb 05, 2020 15:39
--- NOTE | 2020-02-05 20:51 | DS ---
DATE OF DISCHARGE: 02/04/2020 REASON FOR ADMISSION TO THE HOSPITAL: 1. Hypercapnic respiratory failure. 2. Acute on chronic heart failure. CONSULTATIONS: Dr. Derrick Uriarte, Dr. Dillard, Dr. Weaver and Dr. Arrieta. PROCEDURES DONE: Lower extremity ultrasound. HOSPITAL COURSE: The patient is a 49-year-old male, extremely obese. His BMI is 73, weighs 232 kg. He has diabetes, hypertension, chronic kidney disease stage 3. He was having shortness of breath more than usual, was brought to the hospital. He had congestive heart failure, cor pulmonale, was given IV Lasix, Bumex; and he also developed acute respiratory failure, hypercapnic respiratory failure. He was placed on BiPAP. The patient has obstructive sleep apnea, morbid obesity and diabetes. The patient was seen by Pulmonology, Cardiology and Renal. His kidney function was improving. His CO2 was improving after BiPAP and the patient was recommended to go to [facility], but the patient prefers to go home with home health arrangements to be made, to send him on oxygen 3 liters BiPAP at home and home physical therapy and RN to check on him. LABORATORY DATA: His laboratory data, at the time of discharge, BUN 36, creatinine 1.6. COVID was not detected. Blood gas shows pH 7.14, pCO2 116, pO2 68 and then it improved to pH 7.34, pCO2 came down to 87, pO2 80. FINAL DIAGNOSES: 1. Hypercapnic respiratory failure. 2. Cor pulmonale. 3. Right heart failure, diastolic heart failure. 4. Morbid obesity, extreme. 5. BMI 73. 6. Diabetes. 7. Chronic kidney disease stage 3. 8. Noncompliance. DISPOSITION: Home. DISCHARGE MEDICATIONS: See MRAD for discharge medications. ANT LICEA MD DR: TAYLOR/trevor JOB#: [id number] / [id number]
== END 2020-02-04 14:48 | disposition home health service (06) | DRG 291 ==
LOC: ER 10:17 → ED HOLD 15:35 → 6 SOUTH 16:54 → 2 SOUTH 01-30 17:34
PROVIDERS: ADMIT Internal Medicine; ATTEND Internal Medicine
PROC: 5A09357 Assistance with Respiratory Ventilation, Less than 24 Consecutive Hours, Continuous Positive Airway Pressure (ICD-10-PCS; principal; 2020-02-01)
DX: I13.0 Hypertensive heart and chronic kidney disease with heart failure and stage 1 through stage 4 chronic kidney disease, or unspecified chronic kidney disease (principal); I50.33 Acute on chronic diastolic (congestive) heart failure; J96.01 Acute respiratory failure with hypoxia; J96.02 Acute respiratory failure with hypercapnia; Z68.45 Body mass index [BMI] 70 or greater, adult; B37.2 Candidiasis of skin and nail; E11.22 Type 2 diabetes mellitus with diabetic chronic kidney disease; E11.42 Type 2 diabetes mellitus with diabetic polyneuropathy; E66.01 Morbid (severe) obesity due to excess calories; E78.5 Hyperlipidemia, unspecified; E87.5 Hyperkalemia; F17.210 Nicotine dependence, cigarettes, uncomplicated; G47.33 Obstructive sleep apnea (adult) (pediatric); I27.81 Cor pulmonale (chronic); I50.82 Biventricular heart failure; M19.90 Unspecified osteoarthritis, unspecified site; I87.8 Other specified disorders of veins; I89.0 Lymphedema, not elsewhere classified; J44.9 Chronic obstructive pulmonary disease, unspecified; L30.9 Dermatitis, unspecified; M17.0 Bilateral primary osteoarthritis of knee; N18.3 Chronic kidney disease, stage 3 (moderate); Z20.828 Contact with and (suspected) exposure to other viral communicable diseases; Z82.49 Family history of ischemic heart disease and other diseases of the circulatory system; Z83.3 Family history of diabetes mellitus; Z91.11 Patient's noncompliance with dietary regimen; Z91.19 Patient's noncompliance with other medical treatment and regimen; Z88.8 Allergy status to other drugs, medicaments and biological substances
CPT/HCPCS: 36415; 36600; 71045; 80048; 80053; 80061; 81001; 82140; 82553; 82805; 82962; 83036; 83605; 83690; 83735; 83880; 84443; 84484; 85025; 85379; 85520; 87040; 93005; 93970; 94618; 94660; 94760; J1644; J1650; J1815; J3475; J3490; 97110-GP; 97530-GP; 99291-25; G0378; U0003-CS

== ENCOUNTER → 2020-09-23 | Outpatient (CLI) | payer BC, OTHER ==
[~2020-09-23] MED LIST changes: +AMLO-187 PO; -AMLO10TA8 PO; +ASPI325T11 PO; +BUME2TAB3 PO; -LISI-334 PO; +LISI20TA18 PO; +PERFLUTREN PROTEIN-A MICROSPHR 0.22 MG/ML 3 ML VIAL. IV ONE
--- NOTE | 2020-09-24 13:57 | CARD ---
MR#: [id number] Date of Study: 09/23/2020 Ordering Physician: SHIRA BONNER, Referring Physician: SHIRA BONNER Tech: Candida Weller RDCS APPROVED REPORT EXAM: Two-dimensional and M-mode echocardiogram with Doppler and color Doppler. Other Information Quality : Technically Limited Technically limited study due to morbid obesity INDICATION Congestive Heart Failure HX: COPD, Smoking Cessation 01/22 Echo Enhancing Agent Agent/Amount Used: Optison 2mL 2D DIMENSIONS RVDd3.4 (2.9-3.5cm)Left Atrium(2D)4.1 (1.6-4.0cm) IVSd1.2 (0.7-1.1cm)Aortic Root(2D)3.4 (2.0-3.7cm) LVDd6.1 (3.9-5.9cm)PWd1.2 (0.7-1.1cm) LVDs3.9 (2.5-4.0cm)FS (%) 36.5 % SV122.8 mlLVEF(%)65.3 (>50%) Aortic Valve AoV Peak Bubba.107.9cm/Zuleyka Peak GR.4.7mmHg Mitral Valve MV E Vsavjfxu20.8cm/sMV DECEL [id number] MV A Qvlykhka132.4cm/sE/A Ratio0.8 LEFT VENTRICLE The Left Ventricle is mildly dilated. There is mild concentric left ventricular hypertrophy. The left ventricular systolic function is normal and the ejection fraction is within normal range. The Ejecti on Fraction is 60-65%. Grossly normal wall motion. Technically limited images. Transmitral Doppler fl ow pattern is Grade I-abnormal relaxation pattern. RIGHT VENTRICLE The right ventricle is normal size. Cannot assess right ventricular systolic function. ATRIA The left atrium is mildly dilated. The right atrium is not well visualized. Atrial septum is not well visualized. AORTIC VALVE The aortic valve is not well visualized. Doppler and Color Flow revealed no significant aortic regurg itation. There is no significant aortic valvular stenosis. MITRAL VALVE Not well visualized. There is no evidence of mitral valve prolapse. There is no mitral valve stenosis . Doppler and Color Flow revealed no mitral valve regurgitation noted. TRICUSPID VALVE Not well visualized. Doppler and Color Flow revealed no tricuspid valve regurgitation noted. There is no tricuspid valve stenosis. PULMONIC VALVE The pulmonic valve is not well visualized. GREAT VESSELS The aortic root is normal in size. The ascending aorta is not well seen. The IVC was not visualized. PERICARDIAL EFFUSION There is no evidence of significant pericardial effusion. Critical Notification Critical Value: No <Conclusion> The left ventricular systolic function is normal and the ejection fraction is within normal range. Th e Ejection Fraction is 60-65%. Grossly normal wall motion. Technically limited images. Signed by : Derrick Uriarte, Electronically Approved : 09/24/2020 13:57:00
== END ==
LOC: ECHO 13:42
PROVIDERS: ATTEND Internal Medicine Cardiovascular Disease
DX: I50.32 Chronic diastolic (congestive) heart failure (principal); I51.7 Cardiomegaly
CPT/HCPCS: C8929; Q9956

== ENCOUNTER 2021-08-18 23:31 | Emergency (ER) | payer BC, OTHER ==
[~2021-08-18] VITALS: Ht 175.3 cm; Wt 202.2 kg
[~2021-08-18 23:31] MED LIST changes: +DOXY-181 PO; -DOXY100C14 PO; -PERFLUTREN PROTEIN-A MICROSPHR 0.22 MG/ML 3 ML VIAL. IV ONE
--- NOTE | 2021-08-18 23:37 | PHYS DOC ---
Past Medical History Past Medical History: CHF, COPD, Hypertension, Other Additional Past Medical Histor: OBESITY,INFECTED SCROTUM/CELLULITIS Past Surgical History: Other Additional Past Surgical Histo: SCROTAL SX; Smoking Status: Current Every Day Smoker Alcohol Use: None Drug Use: Marijuana General Adult EDM: Chief Complaint: FLU SYMPTOM HPI: HPI: Patient is a 51 year old male who presents with 24-hour history of cough, with yellow sputum, also with fever and chills. He is afebrile currently. He took Tylenol several hours ago. He denies chest pain or dyspnea. He denies abdominal pain, nausea, vomiting, diarrhea. He denies recent travel, surgery, hospitalization. No hospitalization within the last 90 days. He reports compliance with all his medications. He is supposed to wear 2 L per nasal cannula supplement oxygen at all times. He has history of COPD and congestive heart failure. He has fully vaccinated against COVID-19, including booster. He received an influenza vaccination in 2020. He has chronic lower extremity edema, lymphedema, which is unchanged. He denies any lower extremity pain. No recent known sick contacts. Review of Systems: Review of Systems: Constitutional: He reports 24 hours of fever and chills. Eyes: Denies change in visual acuity. [] HENT: Denies nasal congestion or sore throat. [] Respiratory: He denies dyspnea. He reports cough with clear to yellow sputum production. No hemoptysis Cardiovascular: Denies chest pain. Chronic lower extremity lymphedema. GI: Denies abdominal pain, nausea, vomiting, or diarrhea : Denies urinary symptoms Musculoskeletal: Denies back pain or joint pain. [] Integument: Chronic lower extremity venous stasis dermatitis Neurologic: Denies headache, focal weakness or sensory changes, denies dizziness or syncope Psychiatric: Denies depression or anxiety. [] Heart Score: C/O Chest Pain: No Risk Factors: Risk Factors: DM, Current or recent (<one month) smoker, HTN, HLP, family history of CAD, obesity. Risk Scores: Score 0 - 3: 2.5% MACE over next 6 weeks - Discharge Home Score 4 - 6: 20.3% MACE over next 6 weeks - Admit for Clinical Observation Score 7 - 10: 72.7% MACE over next 6 weeks - Early Invasive Strategies Allergies: Allergies: Allergies Coded Allergies Type Severity Reaction Last Updated Verified morphine Allergy Intermediate 09/29/18 Yes Bleach (Sodium Hypochlorite) Adverse Reaction Intermediate 02/13/18 Yes Physical Exam: PE: Constitutional: He is chronically ill-appearing, nontoxic, appears older than stated age HENT: Normocephalic, atraumatic, oropharynx is patent and clear, no evidence of facial trauma, mucous members are moist Eyes: Conjunctive are normal, sclera are clear and anicteric Neck: Normal range of motion, no tenderness, supple, no stridor. Trachea midlin e, no JVD. No meningismus. Cardiovascular:Heart rate regular rhythm, +2 radial pulses bilaterally Lungs & Thorax: Mild tachypnea, coarse rhonchi, diminished breath sounds in bilateral bases. Occasional scattered wheezing, also coughing. No stridor. No retractions. Speaks in full clear sentences Abdomen: Abdomen is obese, soft, nondistended, nontender to palpation. Skin: Warm, dry, bilateral lower extremity venous stasis dermatitis. No warmth, no open wounds, no tenderness Back: No tenderness, no CVA tenderness. [] Extremities: No tenderness, no cyanosis, ROM intact, bilateral lower extremity, symmetric lymphedema. No calf tenderness. Neurologic: Alert and oriented X 3, normal motor function, normal sensory function, no focal deficits noted. He is ambulatory. Psychologic: Affect normal, judgement normal, mood normal. [] EKG: EKG: [] Radiology/Procedures: Radiology/Procedures: IMAGING REPORT Signed PATIENT: FRANCISCO JAVIER HAYES LACCOUNT: [id number] : 1970 LOCATION: ER AGE: 51 SEX: M EXAM STATUS: REG ER ORD. PHYSICIAN: SHEILA NY DO REASON: cough, fever PROCEDURE: PORTABLE CHEST 1V AP chest x-ray HISTORY: Cough and fever. COMPARISON: Chest x-ray February 01, 2020 FINDINGS: Mild cardiomegaly is stable. Pulmonary vascular prominence. Represent vascular congestion. Prominence of the coronary vessels of the right hilum similar to prior x-rays in 2020. Perihilar and lower lobe pulmonary opacities may be edema. No pneumothorax. No pleural effusions. IMPRESSION: Perihilar an lower lobe pulmonary opacities could represent pulmonary edema although given the history of fever multilobar pneumonia is also a consideration. The pulmonary vessels of the right hilum are somewhat prominent although this is similar to prior x-rays in 2020. There may be congestive failure with cardiomegaly and pulmonary vascular congestion present as well. Electronically signed by: Priti Mcintyre MD (08/19/2021 12:30 AM) [facility] [place] and SIGNED BY: PRITI MCINTYRE MD DATE: 08/19/21 0027 Course & Med Decision Making: Course & Med Decision Making Pertinent Labs and Imaging studies reviewed. (See chart for details) I discussed the findings, differential diagnosis and plan of care with him. He is placed on his usual 2 L per nasal cannula. O2 saturation 93 to 94%. Blood pressure stable. Heart rate is stable. He denies any dyspnea or chest pain. Rapid Covid and rapid flu are negative. Findings consistent with possible infiltrates versus chronic heart failure. He will be empirically treated with oral antibiotics for COPD exacerbation/community-acquired pneumonia. He is given a first dose of oral doxycycline here. I discussed the findings, differential diagnosis and plan of care with him. He feels comfortable to plan for discharge home. I recommend he contact his PCP for follow-up. He should continue taking his regularly prescribed medications as directed. He will be prescribed an inhaler to use as needed. Strict return precautions are given. He verbalizes understanding. Jovana Disclaimer: Jovana Disclaimer: This electronic medical record was generated, in whole or in part, using a voice recognition dictation system. Departure Departure Impression: Primary Impression: Community acquired pneumonia Qualified Codes: J18.9 - Pneumonia, unspecified organism Additional Impression: Dependence on supplemental oxygen Disposition: 01 HOME / SELF CARE / HOMELESS Condition: STABLE Referrals: ANT LICEA MD (PCP) Patient Instructions: Pneumonia, Adult Additional Instructions: Take the full course of antibiotics. Use the cough medicine and breathing treatments as needed. Return to the ER for chest pain, shortness of breath, uncontrolled vomiting, dehydration, severe abdominal pain, weakness or any other concerns. Please contact your primary care physician for further evaluation and treatment, and to ensure resolution. Sure you wear your oxygen at all times as directed. Make sure you use your trilogy at nighttime for sleep. Scripts Benzonatate (BENZONATATE) 200 Mg Capsule 1 CAP PO PRN TID PRN for cough, #20 CAP 0 Refills Prov: YANELY,SHEILA M DO 08/19/21 Albuterol Sulfate (VENTOLIN HFA INHALER) 18 Gm Hfa.aer.ad 2 PUFF INH Q4HRS for FOR WHEEZING, #1 EACH 1 Refill Prov: SHEILA NY DO 08/19/21 Doxycycline Hyclate (DOXYCYCLINE HYCLATE) 100 Mg Capsule 1 CAP PO BID for 7 Days, #14 CAP Prov: SHEILA NY DO 08/19/21 SHEILA NY DO Aug 18, 2021 23:37
[2021-08-19 00:09] LABS: INFLUENZA A PATIENT NEGATIVE (NEGATIVE); INFLUENZA B PATIENT NEGATIVE (NEGATIVE)
--- NOTE | 2021-08-19 00:32 | RAD ---
AP chest x-ray HISTORY: Cough and fever. COMPARISON: Chest x-ray February 01, 2020 FINDINGS: Mild cardiomegaly is stable. Pulmonary vascular prominence. Represent vascular congestion. Prominence of the coronary vessels of the right hilum similar to prior x-rays in 2020. Perihilar and lower lobe pulmonary opacities may be edema. No pneumothorax. No pleural effusions. IMPRESSION: Perihilar an lower lobe pulmonary opacities could represent pulmonary edema although give n the history of fever multilobar pneumonia is also a consideration. The pulmonary vessels of the rig ht hilum are somewhat prominent although this is similar to prior x-rays in 2020. There may be conges tive failure with cardiomegaly and pulmonary vascular congestion present as well. Electronically signed by: Mike Mcintyre MD (08/19/2021 12:30 AM) [facility]
[2021-08-19] MEDS ORDERED: DOXY100C3 PO (00:59)
[2021-08-19] MEDS ORDERED: BENZ200C47 PO (00:59)
[2021-08-19] MEDS ORDERED: VENTOLIN HFA18 GM INH (00:59)
[2021-08-19] MEDS ORDERED: DOXYCYCLINE HYCLATE 100 MG TABLET PO ONE (01:00)
[2021-08-19 01:05] VITALS: BP 146/73
== END 2021-08-19 01:10 | disposition home or self-care (01) ==
LOC: ER 23:31
DX: J18.9 Pneumonia, unspecified organism (principal); Z20.822 Contact with and (suspected) exposure to COVID-19; I11.0 Hypertensive heart disease with heart failure; I50.9 Heart failure, unspecified; J44.9 Chronic obstructive pulmonary disease, unspecified; F17.200 Nicotine dependence, unspecified, uncomplicated; Z99.81 Dependence on supplemental oxygen; Z88.5 Allergy status to narcotic agent; Z88.8 Allergy status to other drugs, medicaments and biological substances
CPT/HCPCS: 71045; 87428; 99284

== ENCOUNTER 2021-09-22 20:46 | Inpatient (IN) | payer BC, OTHER ==
[~2021-09-22] VITALS: Ht 177.8 cm; Wt 209.0 kg
[~2021-09-22 20:46] MED LIST changes: +BENZ200C47 PO; +DOXY100C3 PO; +VENTOLIN HFA18 GM INH
--- NOTE | 2021-09-22 21:47 | ED.ADGEN ---
Past Medical History Past Medical History: CHF, COPD, Hypertension, Other Additional Past Medical Histor: OBESITY,INFECTED SCROTUM/CELLULITIS Past Surgical History: No Surgical History Additional Past Surgical Histo: SCROTAL SX; Smoking Status: Former Smoker Alcohol Use: None Drug Use: Marijuana General Adult EDM: Chief Complaint: FLU SYMPTOM HPI: HPI: Patient is a 51 year old fever, body aches, chills, productive cough with posttussive emesis. Patient states that he was treated for pneumonia 1 month ago and completed his antibiotics. Was not admitted at that time. Patient has COPD and uses 2 L nasal cannula home O2. Patient does not take anything for his fever prior to arrival. Patient brought back to room on 2 L nasal cannula he was satting 78% Review of Systems: Review of Systems: All other systems within normal limits except for as noted in the HPI Current Medications: Current Medications Medications (Trade) Dose Ordered Sig/Michelle Start Time Stop Time Status Last Admin Dose Admin Acetaminophen (Tylenol) 1,000 mg 1X ONCE 09/22/21 22:30 09/22/21 22:31 DC 09/23/21 00:12 1,000 MG Albuterol/ Ipratropium (Duoneb) 3 ml 1X ONCE 09/22/21 22:30 09/22/21 22:31 DC 09/22/21 22:05 3 ML Sodium Chloride 1,000 ml @ 1,000 mls/hr 1X ONCE 09/22/21 22:30 09/22/21 23:29 DC Allergies: Allergies: Allergies Coded Allergies Type Severity Reaction Last Updated Verified morphine Allergy Intermediate 09/29/18 Yes Bleach (Sodium Hypochlorite) Adverse Reaction Intermediate 02/13/18 Yes Physical Exam: PE: Constitutional: Well developed, well nourished, no acute distress, non-toxic appearance. Elevated BMI [] HENT: Normocephalic, atraumatic, bilateral external ears normal, nose normal. [] Eyes: PERRLA, conjunctiva normal, no discharge. [] Neck: No rigidity, supple, no stridor. [] Cardiovascular: Regular rate and rhythm, brisk cap refill [] Lungs & Thorax: Non labored symmetric respirations, no tachypnea or respiratory distress. Bilateral wheezes, coarse rhonchi on right [] Abdomen: Soft, nondistended. Skin: Warm, dry, no erythema, no rash. [] Back: Unremarkable Extremities: No deformities, range of motion grossly intact, no lower extremity edema [] Neurologic: Alert and oriented X 3, no focal deficits noted. [] Psychologic: Affect normal, judgement normal, mood normal. [] Current Patient Data: Labs: Laboratory Tests Test 09/22/21 22:20 09/22/21 22:25 White Blood Count 23.4 x10^3/uL (4.0-11.0) H Red Blood Count 5.64 x10^6/uL (4.30-5.70) Hemoglobin 14.8 g/dL (13.0-17.5) Hematocrit 47.5 % (39.0-53.0) Mean Corpuscular Volume 84 fL (79-100) Mean Corpuscular Hemoglobin 26 pg (25-35) Mean Corpuscular Hemoglobin Concent 31 g/dL (31-37) Red Cell Distribution Width 17.3 % (11.5-14.5) H Platelet Count 185 x10^3/uL (140-400) Neutrophils (%) (Auto) 91 % (31-73) H Lymphocytes (%) (Auto) 3 % (24-48) L Monocytes (%) (Auto) 5 % (0-9) Eosinophils (%) (Auto) 0 % (0-3) Basophils (%) (Auto) 1 % (0-3) Neutrophils # (Auto) 21.3 x10^3/uL (1.8-7.7) H Lymphocytes # (Auto) 0.7 x10^3/uL (1.0-4.8) L Monocytes # (Auto) 1.1 x10^3/uL (0.0-1.1) Eosinophils # (Auto) 0.0 x10^3/uL (0.0-0.7) Basophils # (Auto) 0.2 x10^3/uL (0.0-0.2) Sodium Level 132 mmol/L (136-145) L Potassium Level 3.8 mmol/L (3.5-5.1) Chloride Level 95 mmol/L (98-107) L Carbon Dioxide Level 34 mmol/L (21-32) H Anion Gap 3 (6-14) L Blood Urea Nitrogen 23 mg/dL (8-26) Creatinine 1.7 mg/dL (0.7-1.3) H Estimated GFR (Cockcroft-Gault) 43.1 BUN/Creatinine Ratio 14 (6-20) Glucose Level 236 mg/dL (70-99) H Lactic Acid Level 2.7 mmol/L (0.4-2.0) H Calcium Level 9.2 mg/dL (8.5-10.1) Phosphorus Level 1.3 mg/dL (2.6-4.7) L Magnesium Level 1.3 mg/dL (1.8-2.4) L Total Bilirubin 1.1 mg/dL (0.2-1.0) H Aspartate Amino Transferase (AST) 47 U/L (15-37) H Alanine Aminotransferase (ALT) 68 U/L (16-63) H Alkaline Phosphatase 155 U/L (46-116) H Troponin I High Sensitivity 63 ng/L (4-75) XY-Nmb-U-Type Natriuretic Peptide 579 pg/mL (0-124) H Total Protein 7.3 g/dL (6.4-8.2) Albumin 2.9 g/dL (3.4-5.0) L Albumin/Globulin Ratio 0.7 (1.0-1.7) L O2 Saturation 84 % (92-99) L Arterial Blood pH 7.28 (7.35-7.45) L Arterial Blood pH (Temp corrected) 7.25 Arterial Blood pCO2 at Patient Temp 77 mmHg (35-46) *H Arterial Blood pCO2 (Temp correct) 85 mmHg Arterial Blood pO2 at Patient Temp 53 mmHg (75-108) L Arterial Blood pO2 (Temp corrected) 62 mmHg Arterial Blood HCO3 35 mmol/L (21-28) H Arterial Blood Base Excess 5 mmol/L (-3-3) H FiO2 36 (4l nc) Laboratory Tests 09/22/21 22:20 Laboratory Tests 09/22/21 22:20 Vital Signs: Vital Signs Date Time Temp Pulse Resp B/P (MAP) Pulse Ox O2 Delivery O2 Flow Rate FiO2 09/22/21 22:55 95 BiPAP/CPAP 09/22/21 22:06 4.0 09/22/21 22:00 102.8 126 22 128/86 (100) 102.8 EKG: EKG: Sinus tachycardia, slight right axis deviation, no STEMI heart rate 123 [] Heart Score: C/O Chest Pain: N/A Risk Factors: Risk Factors: DM, Current or recent (<one month) smoker, HTN, HLP, family history of CAD, obesity. Risk Scores: Score 0 - 3: 2.5% MACE over next 6 weeks - Discharge Home Score 4 - 6: 20.3% MACE over next 6 weeks - Admit for Clinical Observation Score 7 - 10: 72.7% MACE over next 6 weeks - Early Invasive Strategies Radiology/Procedures: Radiology/Procedures: [facility] [address] [place] [address] IMAGING REPORT Signed PATIENT: FRANCISCO JAVIER HAYES LACCOUNT: [id number] : 1970 LOCATION: [facility] ICU AGE: 51 SEX: M EXAM STATUS: ADM IN ORD. PHYSICIAN: CHAVEZ MOREJON MD REASON: dypnea, pna PROCEDURE: CT CHEST WO CONTRAST CT chest without contrast PQRS statement: CT scans at this facility use dose reduction including either automated exposure control, iterative reconstructions, and /or weight based radiation dosing via mA and kV modification when appropriate to reduce radiation dose to as low as reasonably achievable. HISTORY: Dyspnea. Pneumonia. FINDINGS: Mild cardiomegaly. Small volume of pericardial fluid. Coronary calcified plaque. Esophagus, aorta and pulmonary vessels are unremarkable. There is mild mediastinal adenopathy largest lymph nodes measuring up to 2 x 1 cm at the AP window. Trachea and bronchi are unremarkable. Calcified granulomas left chest. No pneumothorax. No pleural effusions. There is respiratory motion artifact in the lung bases, there are asymmetric heterogeneous bandlike opacities likely atelectasis of the right middle lobe. Bones are unremarkable. IMPRESSION: 1. Right middle lobe heterogeneous linear densities likely extensive discoid atelectasis. Superimposed lobar pneumonia is not excluded. Consider follow-up CT chest imaging in 6 months. 2. Mild cardiomegaly. 2. Mild mediastinal adenopathy as described above. Electronically signed by: Priti Mcintyre MD (09/22/2021 11:22 PM) [facility] DICTATED and SIGNED BY: PRITI MCINTYRE MD DATE: 09/22/21 2782 [] Course & Med Decision Making: Course & Med Decision Making Pertinent Labs and Imaging studies reviewed. (See chart for details) Patient with tachycardia, hypercarbia, hypoxia. Placed on BiPAP and started broad-spectrum antibiotics for pneumonia [] Dragon Disclaimer: Jovana Disclaimer: This electronic medical record was generated, in whole or in part, using a voice recognition dictation system. Departure Departure Impression: Primary Impression: Community acquired pneumonia Additional Impression: Acute on chronic respiratory failure with hypoxia and hypercapnia Disposition: ADMITTED INPATIENT Admitting Physician: Allison Licea Condition: GUARDED Referrals: ALLISON LICEA MD (PCP) Problem Qualifiers CHAVEZ MOREJON MD Sep 22, 2021 21:47
[2021-09-22] MEDS ORDERED: ACETAMINOPHEN 500 MG TABLET PO ONE (22:30)
[2021-09-22] MEDS ORDERED: IV NORMAL SALINE 1000ML BAG 1,000 ML IV ONE ×2 (22:30→23:15)
[2021-09-22] MEDS ORDERED: IPRATRPIUM/ALBUTEROL 0.5/2.5MG 3 ML NEBU. NEB ONE (22:30)
[2021-09-22 22:36] LABS: BASO # 0.2 x10^3/uL (0.0-0.2); BASO % 1 % (0-3); EOS % 0 % (0-3); HEMATOCRIT 47.5 % (39.0-53.0); HEMOGLOBIN 14.8 g/dL (13.0-17.5); LYMPH # 0.7 x10^3/uL (1.0-4.8); LYMPH % 3 % (24-48); MEAN CORPUSCULAR HEMOGLOBIN 26 pg (25-35); MEAN CORPUSCULAR HGB CONC 31 g/dL (31-37); MEAN CORPUSCULAR VOLUME 84 fL (79-100); MONO # 1.1 x10^3/uL (0.0-1.1); MONO % 5 % (0-9); NEUT # 21.3 x10^3/uL (1.8-7.7); NEUT % 91 % (31-73); PLATELET COUNT 185 x10^3/uL (140-400); RED BLOOD COUNT 5.64 x10^6/uL (4.30-5.70); RED CELL DISTRIBUTION WIDTH 17.3 % (11.5-14.5); WHITE BLOOD COUNT 23.4 x10^3/uL (4.0-11.0)
[2021-09-22 22:38] LABS: BASE EXCESS ABG 5 mmol/L (-3-3); HCO3 ABG 35 mmol/L (21-28); PO2 ABG 53 mmHg (75-108); SAT O2 ABG 84 % (92-99)
[2021-09-22 22:40] LABS: PCO2 ABG 77 mmHg (35-46)
[2021-09-22 22:41] LABS: FIO2 ABG 36 (4L nc)
[2021-09-22 22:47] LABS: CALCIUM 9.2 mg/dL (8.5-10.1); CREATININE 1.7 mg/dL (0.7-1.3); GFR 43.1; POTASSIUM 3.8 mmol/L (3.5-5.1)
[2021-09-22 23:00] LABS: CORRECTED PCO2 ABG 85 mmHg; CORRECTED PH ABG 7.25; CORRECTED PO2 ABG 62 mmHg
[2021-09-22 23:01] LABS: ALBUMIN 2.9 g/dL (3.4-5.0); ALBUMIN/GLOBULIN RATIO 0.7 (1.0-1.7); MAGNESIUM 1.3 mg/dL (1.8-2.4); PHOSPHORUS 1.3 mg/dL (2.6-4.7); TOTAL BILIRUBIN 1.1 mg/dL (0.2-1.0); TOTAL PROTEIN 7.3 g/dL (6.4-8.2)
[2021-09-22] MEDS ORDERED: fentaNYL PF VIAL 100 MCG/2 ML VIAL IVP PRN (23:15)
[2021-09-22] MEDS ORDERED: ONDANSETRON PF 4 MG/2 ML VIAL. IVP PRN (23:15)
--- NOTE | 2021-09-22 23:24 | RAD ---
CT chest without contrast PQRS statement: CT scans at this facility use dose reduction including either automated exposure cont rol, iterative reconstructions, and /or weight based radiation dosing via mA and kV modification when appropriate to reduce radiation dose to as low as reasonably achievable. HISTORY: Dyspnea. Pneumonia. FINDINGS: Mild cardiomegaly. Small volume of pericardial fluid. Coronary calcified plaque. Esophagus, aorta and pulmonary vessels are unremarkable. There is mild mediastinal adenopathy largest lymph nod es measuring up to 2 x 1 cm at the AP window. Trachea and bronchi are unremarkable. Calcified granulo mas left chest. No pneumothorax. No pleural effusions. There is respiratory motion artifact in the neri ng bases, there are asymmetric heterogeneous bandlike opacities likely atelectasis of the right middl e lobe. Bones are unremarkable. IMPRESSION: 1. Right middle lobe heterogeneous linear densities likely extensive discoid atelectasis. Superimpose d lobar pneumonia is not excluded. Consider follow-up CT chest imaging in 6 months. 2. Mild cardiomegaly. 2. Mild mediastinal adenopathy as described above. Electronically signed by: Mike Mcintyre MD (09/22/2021 11:22 PM) [facility]
[2021-09-22] MEDS ORDERED: cefTRIAXone IV Push 1 GM VIAL. IVP ONE (23:30)
[2021-09-22] MEDS ORDERED: ALBUTEROL SULFATE 2.5 MG/3 ML NEBU. NEB PRN (23:30)
[2021-09-22] MEDS ORDERED: DOXYCYCLINE HYCLATE 100 MG in IV DEXTROSE 5% 100ML 100 ML IV ONE (23:30)
--- NOTE | 2021-09-22 23:43 | RAD ---
INDICATION: Reason: pna / Spl. Instructions: / History: COMPARISON: August 19, 2021 FINDINGS: Single view of chest obtained. Enlarged cardiomediastinal silhouette. Patchy interstitial and groundglass opacities are again seen bilaterally. Prominence of the bilateral pulmonary hilum again seen which could be from enlarged pulmonary arteries or lymphadenopathy. IMPRESSION: * Interstitial and groundglass opacities bilaterally could be from edema or infiltrate. * Enlarged cardiomediastinal silhouette and bilateral pulmonary hilum. Electronically signed by: Manoj Dobbins MD (09/22/2021 11:41 PM) [id number]
[2021-09-23] VITALS (45 sets, daily range): BP systolic 48–160; BP diastolic 30–101
[2021-09-23] MEDS ORDERED: EMPA25TA PO (00:58)
[2021-09-23] MEDS ORDERED: ALBUTEROL (00:58)
[2021-09-23 01:21] LABS: INFLUENZA A PATIENT NEGATIVE (NEGATIVE); INFLUENZA B PATIENT NEGATIVE (NEGATIVE)
--- NOTE | 2021-09-23 02:07 | NUR ---
Dr. Duque paged for patient primary nurse CONSUELO Palmer. Provider alerted of patient blood pressure systolics in the 50s. Orders given for levophed, fluids, and to consult ID physician Axel An. Orders placed by this RN and initiated by CONSUELO Palmer.
[2021-09-23] MEDS: IV NORMAL SALINE 1000ML BAG 1,000 ML IV SCH ×3 (02:15→19:05)
[2021-09-23 02:25] LABS: BASO % 0 % (0-3); EOS % 0 % (0-3); HEMATOCRIT 43.6 % (39.0-53.0); HEMOGLOBIN 13.5 g/dL (13.0-17.5); LYMPH # 1.1 x10^3/uL (1.0-4.8); LYMPH % 3 % (24-48); MEAN CORPUSCULAR HEMOGLOBIN 27 pg (25-35); MEAN CORPUSCULAR HGB CONC 31 g/dL (31-37); MEAN CORPUSCULAR VOLUME 85 fL (79-100); MONO % 5 % (0-9); NEUT # 34.8 x10^3/uL (1.8-7.7); NEUT % 92 % (31-73); PLATELET COUNT 162 x10^3/uL (140-400); RED CELL DISTRIBUTION WIDTH 17.9 % (11.5-14.5); WHITE BLOOD COUNT 37.9 x10^3/uL (4.0-11.0)
--- NOTE | 2021-09-23 02:31 | NUR ---
dmit from ER- pneumonia- on Bipap- satd- 92% BP low started Levo. Adria placed. Addendum: 09/23/21 at 0236 by VINOD TRUJILLO RN antibiotics given in ER.
[2021-09-23] MEDS: NOREPINEPHRINE VIAL 8 MG in IV DEXTROSE 5% 250 ML IV PRN ×4 (02:38→21:48)
[2021-09-23 02:44] LABS: ALBUMIN 2.2 g/dL (3.4-5.0); ALBUMIN/GLOBULIN RATIO 0.5 (1.0-1.7); CALCIUM 8.7 mg/dL (8.5-10.1); CREATININE 2.4 mg/dL (0.7-1.3); GFR 28.9; POTASSIUM 4.2 mmol/L (3.5-5.1); TOTAL BILIRUBIN 0.9 mg/dL (0.2-1.0); TOTAL PROTEIN 6.5 g/dL (6.4-8.2)
[2021-09-23 04:53] LABS: % BANDS 11 % (0-9); % LYMPHS 3 % (24-48); % MONOS 3 % (0-10); % SEGS 83 % (35-66); PLT ESTIMATE ADEQUATE (ADEQUATE)
[2021-09-23 04:54] LABS: ANISOCYTOSIS SLIGHT; POLYCHROMASIA SLIGHT; TOXIC GRANULATION SLIGHT
[2021-09-23 08:20] LABS: BASE EXCESS ABG 0 mmol/L (-3-3); HCO3 ABG 28 mmol/L (21-28); PCO2 ABG 56 mmHg (35-46); PO2 ABG 59 mmHg (75-108); SAT O2 ABG 89 % (92-99)
[2021-09-23 08:32] LABS: FIO2 ABG 45% BIPAP
[2021-09-23] MEDS ORDERED: PIP/TAZO PER PHARMACY MC PRN (08:45)
--- NOTE | 2021-09-23 09:09 | PDOC ---
Provider Note Date of Service: DATE: 09/23/21 TIME: 09:08 Provider Note Pt seen in ICU ,spoke with RN. on BIPAP,Levophed.wbc 35 .septic.LActic acidosis, ac renal failure H&P dictated.#[id number]. Justifications for Admission Other Justification ANT LICEA MD Sep 23, 2021 09:09
[2021-09-23] MEDS ORDERED: DEXTROSE 50% 25 GM / 50ML DISP.SYRIN. IV PRN (09:15)
[2021-09-23] MEDS: PIPERACILLIN/TAZOBACTAM 3.375 GM in IV NORMAL SALINE 50ML 50 ML IV SCH ×4 (09:18→23:42)
--- NOTE | 2021-09-23 09:29 | PDOC ---
PULMONARY PROGRESS NOTES DATE: 09/23/21 TIME: 09:29 Vitals Vital Signs Date Time Temp Pulse Resp B/P (MAP) Pulse Ox O2 Delivery O2 Flow Rate FiO2 09/23/21 08:08 95 BiPAP/CPAP 09/23/21 06:00 98.9 86 20 94/53 98.9 09/22/21 22:06 4.0 General: Lethargic HEENT: Other Lungs: Clear Cardiovascular: S1, S2 Abdomen: Soft, Non-tender, Other Extremities: Other Labs Laboratory Tests Test 09/22/21 22:20 09/22/21 22:25 09/23/21 00:45 09/23/21 02:10 White Blood Count 23.4 x10^3/uL (4.0-11.0) 37.9 x10^3/uL (4.0-11.0) Red Blood Count 5.64 x10^6/uL (4.30-5.70) 5.10 x10^6/uL (4.30-5.70) Hemoglobin 14.8 g/dL (13.0-17.5) 13.5 g/dL (13.0-17.5) Hematocrit 47.5 % (39.0-53.0) 43.6 % (39.0-53.0) Mean Corpuscular Volume 84 fL (79-100) 85 fL (79-100) Mean Corpuscular Hemoglobin 26 pg (25-35) 27 pg (25-35) Mean Corpuscular Hemoglobin Concent 31 g/dL (31-37) 31 g/dL (31-37) Red Cell Distribution Width 17.3 % (11.5-14.5) 17.9 % (11.5-14.5) Platelet Count 185 x10^3/uL (140-400) 162 x10^3/uL (140-400) Neutrophils (%) (Auto) 91 % (31-73) 92 % (31-73) Lymphocytes (%) (Auto) 3 % (24-48) 3 % (24-48) Monocytes (%) (Auto) 5 % (0-9) 5 % (0-9) Eosinophils (%) (Auto) 0 % (0-3) 0 % (0-3) Basophils (%) (Auto) 1 % (0-3) 0 % (0-3) Neutrophils # (Auto) 21.3 x10^3/uL (1.8-7.7) 34.8 x10^3/uL (1.8-7.7) Lymphocytes # (Auto) 0.7 x10^3/uL (1.0-4.8) 1.1 x10^3/uL (1.0-4.8) Monocytes # (Auto) 1.1 x10^3/uL (0.0-1.1) 2.0 x10^3/uL (0.0-1.1) Eosinophils # (Auto) 0.0 x10^3/uL (0.0-0.7) 0.0 x10^3/uL (0.0-0.7) Basophils # (Auto) 0.2 x10^3/uL (0.0-0.2) 0.0 x10^3/uL (0.0-0.2) Sodium Level 132 mmol/L (136-145) 134 mmol/L (136-145) Potassium Level 3.8 mmol/L (3.5-5.1) 4.2 mmol/L (3.5-5.1) Chloride Level 95 mmol/L (98-107) 96 mmol/L (98-107) Carbon Dioxide Level 34 mmol/L (21-32) 31 mmol/L (21-32) Anion Gap 3 (6-14) 7 (6-14) Blood Urea Nitrogen 23 mg/dL (8-26) 26 mg/dL (8-26) Creatinine 1.7 mg/dL (0.7-1.3) 2.4 mg/dL (0.7-1.3) Estimated GFR (Cockcroft-Gault) 43.1 28.9 BUN/Creatinine Ratio 14 (6-20) 11 (6-20) Glucose Level 236 mg/dL (70-99) 220 mg/dL (70-99) Lactic Acid Level 2.7 mmol/L (0.4-2.0) 4.5 mmol/L (0.4-2.0) Calcium Level 9.2 mg/dL (8.5-10.1) 8.7 mg/dL (8.5-10.1) Phosphorus Level 1.3 mg/dL (2.6-4.7) Magnesium Level 1.3 mg/dL (1.8-2.4) Total Bilirubin 1.1 mg/dL (0.2-1.0) 0.9 mg/dL (0.2-1.0) Aspartate Amino Transf (AST/SGOT) 47 U/L (15-37) 39 U/L (15-37) Alanine Aminotransferase (ALT/SGPT) 68 U/L (16-63) 51 U/L (16-63) Alkaline Phosphatase 155 U/L (46-116) 102 U/L (46-116) Troponin I High Sensitivity 63 ng/L (4-75) HN-Tkw-Q-Type Natriuretic Peptide 579 pg/mL (0-124) Total Protein 7.3 g/dL (6.4-8.2) 6.5 g/dL (6.4-8.2) Albumin 2.9 g/dL (3.4-5.0) 2.2 g/dL (3.4-5.0) Albumin/Globulin Ratio 0.7 (1.0-1.7) 0.5 (1.0-1.7) O2 Saturation 84 % (92-99) Arterial Blood pH 7.28 (7.35-7.45) Arterial Blood pH (Temp corrected) 7.25 Arterial Blood pCO2 at Patient Temp 77 mmHg (35-46) Arterial Blood pCO2 (Temp correct) 85 mmHg Arterial Blood pO2 at Patient Temp 53 mmHg (75-108) Arterial Blood pO2 (Temp corrected) 62 mmHg Arterial Blood HCO3 35 mmol/L (21-28) Arterial Blood Base Excess 5 mmol/L (-3-3) FiO2 36 (4l nc) Influenza Type A Antigen Negative (NEGATIVE) Influenza Type B Antigen Negative (NEGATIVE) SARS-CoV-2 Antigen (Rapid) Negative (NEGATIVE) Segmented Neutrophils % 83 % (35-66) Band Neutrophils % 11 % (0-9) Lymphocytes % 3 % (24-48) Monocytes % 3 % (0-10) Toxic Granulation Slight Platelet Estimate Adequate (ADEQUATE) Polychromasia Slight Anisocytosis Slight Test 09/23/21 08:00 O2 Saturation 89 % (92-99) Arterial Blood pH 7.31 (7.35-7.45) Arterial Blood pCO2 at Patient Temp 56 mmHg (35-46) Arterial Blood pO2 at Patient Temp 59 mmHg (75-108) Arterial Blood HCO3 28 mmol/L (21-28) Arterial Blood Base Excess 0 mmol/L (-3-3) FiO2 45% bipap Laboratory Tests Test 09/22/21 22:20 09/22/21 22:25 09/23/21 00:45 09/23/21 02:10 White Blood Count 23.4 x10^3/uL (4.0-11.0) 37.9 x10^3/uL (4.0-11.0) Red Blood Count 5.64 x10^6/uL (4.30-5.70) 5.10 x10^6/uL (4.30-5.70) Hemoglobin 14.8 g/dL (13.0-17.5) 13.5 g/dL (13.0-17.5) Hematocrit 47.5 % (39.0-53.0) 43.6 % (39.0-53.0) Mean Corpuscular Volume 84 fL (79-100) 85 fL (79-100) Mean Corpuscular Hemoglobin 26 pg (25-35) 27 pg (25-35) Mean Corpuscular Hemoglobin Concent 31 g/dL (31-37) 31 g/dL (31-37) Red Cell Distribution Width 17.3 % (11.5-14.5) 17.9 % (11.5-14.5) Platelet Count 185 x10^3/uL (140-400) 162 x10^3/uL (140-400) Neutrophils (%) (Auto) 91 % (31-73) 92 % (31-73) Lymphocytes (%) (Auto) 3 % (24-48) 3 % (24-48) Monocytes (%) (Auto) 5 % (0-9) 5 % (0-9) Eosinophils (%) (Auto) 0 % (0-3) 0 % (0-3) Basophils (%) (Auto) 1 % (0-3) 0 % (0-3) Neutrophils # (Auto) 21.3 x10^3/uL (1.8-7.7) 34.8 x10^3/uL (1.8-7.7) Lymphocytes # (Auto) 0.7 x10^3/uL (1.0-4.8) 1.1 x10^3/uL (1.0-4.8) Monocytes # (Auto) 1.1 x10^3/uL (0.0-1.1) 2.0 x10^3/uL (0.0-1.1) Eosinophils # (Auto) 0.0 x10^3/uL (0.0-0.7) 0.0 x10^3/uL (0.0-0.7) Basophils # (Auto) 0.2 x10^3/uL (0.0-0.2) 0.0 x10^3/uL (0.0-0.2) Sodium Level 132 mmol/L (136-145) 134 mmol/L (136-145) Potassium Level 3.8 mmol/L (3.5-5.1) 4.2 mmol/L (3.5-5.1) Chloride Level 95 mmol/L (98-107) 96 mmol/L (98-107) Carbon Dioxide Level 34 mmol/L (21-32) 31 mmol/L (21-32) Anion Gap 3 (6-14) 7 (6-14) Blood Urea Nitrogen 23 mg/dL (8-26) 26 mg/dL (8-26) Creatinine 1.7 mg/dL (0.7-1.3) 2.4 mg/dL (0.7-1.3) Estimated GFR (Cockcroft-Gault) 43.1 28.9 BUN/Creatinine Ratio 14 (6-20) 11 (6-20) Glucose Level 236 mg/dL (70-99) 220 mg/dL (70-99) Lactic Acid Level 2.7 mmol/L (0.4-2.0) 4.5 mmol/L (0.4-2.0) Calcium Level 9.2 mg/dL (8.5-10.1) 8.7 mg/dL (8.5-10.1) Phosphorus Level 1.3 mg/dL (2.6-4.7) Magnesium Level 1.3 mg/dL (1.8-2.4) Total Bilirubin 1.1 mg/dL (0.2-1.0) 0.9 mg/dL (0.2-1.0) Aspartate Amino Transf (AST/SGOT) 47 U/L (15-37) 39 U/L (15-37) Alanine Aminotransferase (ALT/SGPT) 68 U/L (16-63) 51 U/L (16-63) Alkaline Phosphatase 155 U/L (46-116) 102 U/L (46-116) Troponin I High Sensitivity 63 ng/L (4-75) PY-Ejj-L-Type Natriuretic Peptide 579 pg/mL (0-124) Total Protein 7.3 g/dL (6.4-8.2) 6.5 g/dL (6.4-8.2) Albumin 2.9 g/dL (3.4-5.0) 2.2 g/dL (3.4-5.0) Albumin/Globulin Ratio 0.7 (1.0-1.7) 0.5 (1.0-1.7) O2 Saturation 84 % (92-99) Arterial Blood pH 7.28 (7.35-7.45) Arterial Blood pH (Temp corrected) 7.25 Arterial Blood pCO2 at Patient Temp 77 mmHg (35-46) Arterial Blood pCO2 (Temp correct) 85 mmHg Arterial Blood pO2 at Patient Temp 53 mmHg (75-108) Arterial Blood pO2 (Temp corrected) 62 mmHg Arterial Blood HCO3 35 mmol/L (21-28) Arterial Blood Base Excess 5 mmol/L (-3-3) FiO2 36 (4l nc) Influenza Type A Antigen Negative (NEGATIVE) Influenza Type B Antigen Negative (NEGATIVE) SARS-CoV-2 Antigen (Rapid) Negative (NEGATIVE) Segmented Neutrophils % 83 % (35-66) Band Neutrophils % 11 % (0-9) Lymphocytes % 3 % (24-48) Monocytes % 3 % (0-10) Toxic Granulation Slight Platelet Estimate Adequate (ADEQUATE) Polychromasia Slight Anisocytosis Slight Test 09/23/21 08:00 O2 Saturation 89 % (92-99) Arterial Blood pH 7.31 (7.35-7.45) Arterial Blood pCO2 at Patient Temp 56 mmHg (35-46) Arterial Blood pO2 at Patient Temp 59 mmHg (75-108) Arterial Blood HCO3 28 mmol/L (21-28) Arterial Blood Base Excess 0 mmol/L (-3-3) FiO2 45% bipap Medications Active Scripts Medications Dose Route/Sig Max Daily Dose Days Date Category [Albuterol] 09/23/21 Reported Jardiance (Empagliflozin) 25 Mg Tablet 1 Tab PO DAILY 09/23/21 Reported Benzonatate 200 Mg Capsule 1 Cap PO PRN TID PRN 08/19/21 Rx Ventolin Hfa Inhaler (Albuterol Sulfate) 18 Gm Hfa.aer.ad 2 Puff INH Q4HRS 08/19/21 Rx Doxycycline Hyclate 100 Mg Capsule 1 Cap PO BID 7 08/19/21 Rx Bumetanide 2 Mg Tablet 2 Mg PO BID 30 02/04/20 Rx Aspirin Ec (Aspirin) 325 Mg Tablet.dr 325 Mg PO DAILYWBKFT 30 02/04/20 Rx [Fluconazole] 100 MG Tablet 400 Mg PO DAILY 10 08/19/19 Rx Hydralazine Hcl 50 Mg Tablet 50 Mg PO TID 90 08/19/19 Rx K-Tab ER (Potassium Chloride) 20 Meq Tablet.er 20 Meq PO BID 30 08/19/19 Rx One-A-Day Essential (Multivitamin) 1 Each Tablet 1 Tab PO DAILY 30 08/15/19 Reported Metformin Hcl 500 Mg Tablet 2 Tab PO BIDWMEALS 08/15/19 Reported Carvedilol (Carvedilol) 12.5 Mg Tablet 2 Tab PO BIDWMEALS 08/15/19 Reported Lisinopril 20 Mg Tablet 1 Tab PO DAILY 08/15/19 Reported Impression . Dictated Sepsis Acute on chronic respiratory failure Continue current support DAVID URBINA MD Sep 23, 2021 09:29
--- NOTE | 2021-09-23 10:10 | EKG ---
[facility] [address] [place] [address] Test Date: 2021-09-22 Test Time: 22:09:05 Pat Name: FRANCISCO JAVIER HAYES Department: Room: Gender: M Greige Mender: : 1970 Requested By: CHAVEZ MOREJON Order Number: [id number] Reading MD: Measurements Intervals [place] Rate: 123 P: 22 AL: 148 QRS: 96 QRSD: 82 T: 50 QT: 290 QTc: 420 Interpretive Statements SINUS TACHYCARDIA VENTRICULAR PREMATURE COMPLEX(ES) RIGHTWARD AXIS ABNORMAL ECG RI6.01 No previous ECG available for comparison
--- NOTE | 2021-09-23 10:19 | NUR ---
Medications that were "non-administered" (NS and Dapto), were administered, however, barcodes were not scanned.
--- NOTE | 2021-09-23 11:58 | CONS ---
DATE OF CONSULTATION: 09/23/2021 ATTENDING PHYSICIAN: Allison Kay MD REASON FOR CONSULTATION: The patient is seen in pulmonary consultation at the request of Dr. Kay for acute on chronic hypoxemic hypercapnic respiratory failure. HISTORY OF PRESENT ILLNESS: The patient presented mainly because of fever and chills. He was slightly more short of breath. He was recently hospitalized here at [facility] back on 08/2015. He was treated for pneumonia, discharged home from the Emergency Room. He now presents with acute chills and fever and mild productive cough. The patient was last admitted back in 01/2021 with congestive heart failure. At that time, he had chronic lower extremity edema. The patient now presents with an arterial blood gas revealed a pH of 7.28, PaCO2 of 77, pO2 of 85. He was placed on BiPAP this morning. The arterial blood gas revealed a pH of 7.31, pCO2 of 56, pO2 of 59. I have personally reviewed her CT angiogram. CT chest with no contrast revealed a right lower lobe infiltrate, mild cardiomegaly, mediastinal adenopathy. The patient denies any recent exposures to anyone with influenza with COVID-19. He is up to date on COVID-19 vaccinations including the booster. PAST MEDICAL HISTORY: Chronic right-sided heart failure, COPD, morbid obesity, hypertension, tobacco dependence, in remission. PAST SURGICAL HISTORY: No recent major surgeries. ALLERGIES: MORPHINE. HOME MEDICATIONS: List was reviewed. Current medications list was likewise reviewed. SOCIAL HISTORY: He is currently not smoking. PHYSICAL EXAMINATION: VITAL SIGNS: Stable. O2 saturation greater than 92%. Yesterday, he had a fever of 103.2. He is currently on nasal cannula oxygen. HEENT: Eyes: The sclerae were nonicteric. NECK: Jugular venous distention was not elevated. No lymphadenopathy. CHEST: Full expansion. LUNGS: Adequate air flow. No wheezes. CARDIOVASCULAR: Regular rate and rhythm with S1, S2. No S3. ABDOMEN: Obese. EXTREMITIES: No clubbing or cyanosis. No evidence of skin changes compatible with chronic venous insufficiency. LABORATORY DATA: Labs were reviewed. Arterial blood gas as indicated above. White count was 37.9. Electrolytes were deranged. BUN was 22.4, lactic acid level was elevated. IMPRESSION: 1. Acute on chronic hypoxemic hypercapnic respiratory failure. 2. Sepsis. 3. Fever related to the above. 4. Marked leukocytosis. 5. Morbid obesity. 6. Acute on chronic renal insufficiency. 7. Lactic acidosis. 8. Protein malnutrition present upon admission. 9. Rapid test for SARS-CoV-2 negative. PLAN: 1. We will continue current empiric antibiotics. 2. PCR for COVID-19. 3. Continue p.r.n. BiPAP. 4. Consult Nephrology, already performed. 5. DVT prophylaxis. 6. Bronchodilators. I do appreciate the privilege in sharing in the patient's care. Total critical care time of 45 minutes. [facility] [place] DR: Ishaan TID: [id number]
[2021-09-23] MEDS: INSULIN LISPRO 300 UNITS/3 ML VIAL. SQ SCH ×2 (12:46→16:38)
[2021-09-23] MEDS: STERILE WATER for RESP 2,000 ML BAG. INH PRN (15:36)
[2021-09-23] MEDS: ACETAMINOPHEN 325 MG TABLET. PO PRN ×2 (15:42→23:04)
[2021-09-23] MEDS: DAPTOmycin (GENERIC) IVPB 760 MG in IV NORMAL SALINE 50ML 50 ML IV SCH (15:43)
[2021-09-23] MEDS ORDERED: MAGNESIUM SULFATE 3 GM in IV DEXTROSE 5% 100ML 100 ML IV ONE (15:45)
[2021-09-23] MEDS ORDERED: MAGNESIUM SULFATE 2GM 50 ML IV ONE (16:00)
--- NOTE | 2021-09-23 16:42 | NUR ---
SS following for discharge planning. SS reviewed pt chart and discussed with pt RN. Pt is from home and is currently on Vapotherm at 80%. COVID19 negative. Levophed. Pt on IV Daptomycin and IV Zosyn. SS will continue to follow for discharge planning.
[2021-09-23] MEDS ORDERED: MAGNESIUM SULFATE 1GM 100 ML IV ONE (18:00)
--- NOTE | 2021-09-23 20:15 | CONS ---
DATE OF CONSULTATION: 09/23/2021 REQUESTING PHYSICIAN: Allison Kay MD REASON FOR CONSULTATION: Sepsis. HISTORY OF PRESENT ILLNESS: This is a 51-year-old morbidly obese gentleman who came in with fever and chills. The patient says he was sitting watching TV and all of a sudden he started having chills and fever, hence he came in. The patient was noted to have lactic acidosis, pronounced leukocytosis, in fact hypotension, requiring vasopressor support, which he is off now. The patient was given daptomycin and Zosyn. The patient is alert, awake, able to communicate. The patient says he is feeling much better, but he was doing fine and all of a sudden this fever and chills. Denies any nausea, vomiting or diarrhea. Denies any chest pain, shortness of breath, urinary symptoms, bowel symptoms, headache or visual symptoms. PAST MEDICAL HISTORY: Positive for morbid obesity, COPD, hypertension, right-sided heart failure, lower extremity venous insufficiency and stasis dermatitis. ALLERGIES: LISTED ALLERGIC TO MORPHINE. CURRENT MEDICATIONS: Reviewed. REVIEW OF SYSTEMS: As per the HPI. All other systems reviewed are negative. SOCIAL HISTORY: Negative for smoking, alcohol or illicit drug use. PHYSICAL EXAMINATION: GENERAL: Alert, oriented gentleman, not in distress. VITAL SIGNS: Stable. The patient did have a T-max of 103.2. Currently, his temperature is normal, pulse 73, respirations 16, blood pressure 125/66. HEENT: Both pupils are round and reacting. No conjunctival lesion, no lesion in the mouth. NECK: Supple, no JVP, no lymphadenopathy. LUNGS: Clear. HEART: S1, S2, regular. ABDOMEN: Soft, nontender, no organomegaly. EXTREMITIES: No edema or cyanosis. Chronic changes present in the legs. NEUROLOGIC: The patient is alert, awake, and appropriate. No focal neurologic deficit. LABORATORY DATA: White count is 37,000. BUN and creatinine is 26 and 2.4. Lactic acid is 4.5. Blood culture is pending. Chest CT showed right middle lobe linear density, likely discoid atelectasis, superimposed lobar pneumonia is not excluded, mild cardiomegaly, mild mediastinal adenopathy. IMPRESSION: 1. Fever and chills. 2. Leukocytosis. 3. Respiratory failure. 4. Circulatory failure. 5. Lactic acidosis. 6. Chronic obstructive pulmonary disease. 7. Morbid obesity. 8. History of right-sided heart failure. RECOMMENDATIONS: Continue daptomycin and Zosyn started. Discussed with Dr. Kay. We will follow the cultures. Thank you very much, Dr. Kay, for giving me opportunity to participate in this patient's care. JIGNA/MATT DR: Philippe TID: [id number]
[2021-09-24] VITALS (26 sets, daily range): BP systolic 83–143; BP diastolic 41–76
--- NOTE | 2021-09-24 02:59 | HP ---
DATE OF SERVICE: 09/23/2021 ADMIT DATE: 09/22/2021 MEDICAL HISTORY AND PHYSICAL REASON FOR ADMISSION TO THE HOSPITAL: Fever, respiratory failure, pneumonia, hypercapnic respiratory failure. HISTORY OF PRESENTING ILLNESS: The patient is a 51-year-old male. The patient has a history of morbid obesity, obstructive sleep apnea, diabetes, congestive heart failure, cor pulmonale, and also diabetes. He was doing relatively well. He was in the Emergency Room a month ago for bronchitis and pneumonia, was treated with oral antibiotics, was discharged from the Emergency Room. He says he was doing relatively well and yesterday he noticed some chills and fever, not feeling well, was brought to the hospital and his white count was high 23,000. Chest x-ray shows infiltrate in the lung. CT scan shows pneumonia. Blood gas shows hypercapnic respiratory failure with pH 7.28, pCO2 of 77, pO2 of 85 on 4 liters. The patient also had increased lactic acid, hypotensive with kidney failure. The patient was admitted to the ICU, was given IV fluids, total 3 liters, was started on Levophed, was started on broad-spectrum antibiotics after cultures was done and he was placed on BiPAP. [place] catheter was placed. Past medical history as mentioned above, the patient was in the Emergency Room a month ago for walking pneumonia, was treated with antibiotics. The patient was last in the hospital 2 years ago, also had hypercapnic respiratory failure. His creatinine was 1.6 and his last echocardiogram 1 year ago shows an ejection fraction of 65%. PAST MEDICAL HISTORY: As mentioned, has obesity, obstructive sleep apnea, cor pulmonale, diastolic heart failure, morbid obesity, diabetes, and hypertension. PAST SURGICAL HISTORY: No major surgeries. FAMILY HISTORY: Positive for diabetes, heart disease, high blood pressure. SOCIAL HISTORY: Smoked for 30 years. Denies alcohol. The patient is on pain medications, hydrocodone for pain control. ALLERGIES: ALLERGIC TO MORPHINE AND BLEACH. MEDICATIONS: Lasix 80 mg twice a day, metformin 500 mg twice a day, multivitamin, carvedilol 12.5 twice a day, hydralazine 50 mg 3 times daily, lisinopril 20 mg daily, potassium 20 mEq daily. REVIEW OF SYMPTOMS: The patient says he got sick all of a sudden; otherwise, he was doing relatively well with some swelling in the extremities. PHYSICAL EXAMINATION: GENERAL: The patient is morbidly obese. Surprisingly, he does not look that sick when compared to his lab values. He is talking. He is comfortable. VITAL SIGNS: Temperature 101.8, pulse 118, respirations 18, blood pressure 89/49, 92% on BiPAP. At the time of admission, temperature was 103, pulse 123, 89 on 4 liters saturation. HEENT: Head is atraumatic. NECK: Supple. CHEST: Symmetrical. CARDIOVASCULAR: S1, S2. No murmurs. LUNGS: Diminished breath sounds. Few crackles at the bases. ABDOMEN: Obese. No mass palpable, nontender. Bowel sounds are present. EXTERNAL GENITALIA: Covington catheter placed in the Emergency Room draining urine. RECTAL: Deferred. EXTREMITIES: The patient has chronic stasis dermatitis and lymphedema, some redness. NEUROLOGIC: Moving all extremities. No focal deficits noted. LABORATORY DATA: Shows a white count of 23,000, went up to 37,000, hemoglobin 14, platelets 185. Electrolytes show sodium 132, potassium 3.8, chloride 95, bicarbonate 34, BUN 23, creatinine 1.7, glucose 236, magnesium 1.3, phosphorus 1.3, bilirubin 1.1. BNP 579. Lactic acid 2.7, went up to 4.5. Creatinine went up to 2.4. COVID screen was negative. Influenza A and B were negative. Chest x-ray shows bilateral interstitial infiltrates. CT scan of the chest shows a right middle lobe density, mild cardiomegaly, mild mediastinal adenopathy. EKG done, report is pending. FINAL IMPRESSION: 1. .Hypercapnic acute respiratory failure. 2. Pneumonia, rule out postobstructive pneumonia 3. Diastolic heart failure. 4. Diabetes. 5. Lactic acidosis. 6. Sepsis with multisystem failure. 7.Ac renal failure ,ATN PLAN: At this time, was admitted to the hospital after culture was done. Broad-spectrum antibiotics, daptomycin and Zosyn. ID is consulted. Pulmonary is consulted for BiPAP and management. The patient was also seen by Renal. We will replace magnesium and phosphorus and see how the patient's condition improves. DVT prophylaxis. The patient was on Levophed for a short course for blood pressure, given 3 liters of fluid and monitor kidney functions. TAYLOR/AMY/KJ DR: TAYLOR/trevor TID: [id number] MTDD
[2021-09-24] MEDS: IV NORMAL SALINE 1000ML BAG 1,000 ML IV SCH ×2 (04:45→21:34)
[2021-09-24] MEDS: NOREPINEPHRINE VIAL 8 MG in IV DEXTROSE 5% 250 ML IV PRN ×3 (04:45→21:31)
[2021-09-24 05:10] LABS: CALCIUM 8.3 mg/dL (8.5-10.1); CREATININE 2.8 mg/dL (0.7-1.3); GFR 24.2; POTASSIUM 4.6 mmol/L (3.5-5.1)
[2021-09-24 05:11] LABS: BASO % 0 % (0-3); EOS % 0 % (0-3); HEMATOCRIT 42.7 % (39.0-53.0); HEMOGLOBIN 13.5 g/dL (13.0-17.5); LYMPH # 1.6 x10^3/uL (1.0-4.8); LYMPH % 6 % (24-48); MEAN CORPUSCULAR HEMOGLOBIN 27 pg (25-35); MEAN CORPUSCULAR HGB CONC 32 g/dL (31-37); MEAN CORPUSCULAR VOLUME 84 fL (79-100); MONO # 1.9 x10^3/uL (0.0-1.1); MONO % 7 % (0-9); NEUT # 24.9 x10^3/uL (1.8-7.7); NEUT % 88 % (31-73); PLATELET COUNT 168 x10^3/uL (140-400); RED BLOOD COUNT 5.07 x10^6/uL (4.30-5.70); RED CELL DISTRIBUTION WIDTH 17.6 % (11.5-14.5); WHITE BLOOD COUNT 28.5 x10^3/uL (4.0-11.0)
[2021-09-24 05:17] LABS: MAGNESIUM 2.1 mg/dL (1.8-2.4)
[2021-09-24] MEDS: PIPERACILLIN/TAZOBACTAM 3.375 GM in IV NORMAL SALINE 50ML 50 ML IV SCH ×3 (05:27→18:13)
[2021-09-24] MEDS: INSULIN LISPRO 300 UNITS/3 ML VIAL. SQ SCH ×3 (08:14→17:23)
--- NOTE | 2021-09-24 09:11 | PDOC ---
PROGRESS NOTES Date of Service: DATE: 09/24/21 TIME: 09:06 Subjective Subjective pt seen in ICU ,off BIPAP on high flow oxygen Objective Objective Vital Signs Date Time Temp Pulse Resp B/P (MAP) Pulse Ox O2 Delivery O2 Flow Rate FiO2 09/24/21 08:44 93 vapotherm 30.0 09/24/21 06:00 102 20 105/46 09/24/21 04:00 98.2 98.2 Intake and Output 09/24/21 07:00 Intake Total 5041 ml Output Total 1350 ml Balance 3691 ml Intake Oral 1680 ml IV Total 3361 ml Output Urine Total 1350 ml # Bowel Movements 2 Physical Exam Abdomen: Soft Heart: Regular rate, Normal S1 Extremities: Other (lympedema ) General: Oriented X3 HEENT: PERRLA Lungs: Normal air movement MUSCULOSKELETAL: Osteoarthritic changes both hands Neuro: Normal speech Psych/Mental Status: Mental status NL Skin: No breakdown Diagnosis Problem List Problems Medical Problems: (1) Acute on chronic respiratory failure with hypoxia and hypercapnia Status: Acute (2) Community acquired pneumonia Status: Acute Assessment Assessment Problems Medical Problems: (1) Acute on chronic respiratory failure with hypoxia and hypercapnia Status: Acute (2) Community acquired pneumonia Status: Acute FINAL IMPRESSION: 1. .Hypercapnic acute respiratory failure. 2. Pneumonia, rule out postobstructive pneumonia 3. Diastolic heart failure. 4. Diabetes. 5. Lactic acidosis. 6. Sepsis with multisystem failure. 7. Ac Renal failure PLAN: Of BIPAP , now on high flow oxygen 30 L. Low dose Levophed. wbc 28 down from 35on Dapto+zosyn cr 2.8 due to ATN BS 100 to 200. DVT prevention o Lovenox. spoke with [employer] COR[employer]OR time spent 26 mts coordinating care. Picc line c/s -neg At this time, was admitted to the hospital after culture was done. Broad-spectrum antibiotics, daptomycin and Zosyn. ID is consulted. Pulmonary is consulted for BiPAP and management. The patient was also seen by Renal. We will replace magnesium and phosphorus and see how the patient's condition improves. DVT prophylaxis. The patient was on Levophed for a short course for blood pressure, given 3 liters of fluid and monitor kidney functions. Plan Plan of Care Problems Medical Problems: (1) Acute on chronic respiratory failure with hypoxia and hypercapnia Status: Acute (2) Community acquired pneumonia Status: Acute Comment Review of Relevant I have reviewed the following items adolfo (where applicable) has been applied. Labs Laboratory Tests Test 09/23/21 12:32 09/23/21 12:36 09/23/21 16:33 09/24/21 04:00 Glucose (Fingerstick) 188 mg/dL (70-99) 158 mg/dL (70-99) Coronavirus (COVID-19)(PCR) Not detected (NOT DETECTD) White Blood Count 28.5 x10^3/uL (4.0-11.0) Red Blood Count 5.07 x10^6/uL (4.30-5.70) Hemoglobin 13.5 g/dL (13.0-17.5) Hematocrit 42.7 % (39.0-53.0) Mean Corpuscular Volume 84 fL (79-100) Mean Corpuscular Hemoglobin 27 pg (25-35) Mean Corpuscular Hemoglobin Concent 32 g/dL (31-37) Red Cell Distribution Width 17.6 % (11.5-14.5) Platelet Count 168 x10^3/uL (140-400) Neutrophils (%) (Auto) 88 % (31-73) Lymphocytes (%) (Auto) 6 % (24-48) Monocytes (%) (Auto) 7 % (0-9) Eosinophils (%) (Auto) 0 % (0-3) Basophils (%) (Auto) 0 % (0-3) Neutrophils # (Auto) 24.9 x10^3/uL (1.8-7.7) Lymphocytes # (Auto) 1.6 x10^3/uL (1.0-4.8) Monocytes # (Auto) 1.9 x10^3/uL (0.0-1.1) Eosinophils # (Auto) 0.0 x10^3/uL (0.0-0.7) Basophils # (Auto) 0.0 x10^3/uL (0.0-0.2) Sodium Level 132 mmol/L (136-145) Potassium Level 4.6 mmol/L (3.5-5.1) Chloride Level 93 mmol/L (98-107) Carbon Dioxide Level 33 mmol/L (21-32) Anion Gap 6 (6-14) Blood Urea Nitrogen 42 mg/dL (8-26) Creatinine 2.8 mg/dL (0.7-1.3) Estimated GFR (Cockcroft-Gault) 24.2 Glucose Level 187 mg/dL (70-99) Calcium Level 8.3 mg/dL (8.5-10.1) Phosphorus Level 6.0 mg/dL (2.6-4.7) Magnesium Level 2.1 mg/dL (1.8-2.4) Creatine Kinase 71 U/L (39-308) Test 09/24/21 08:04 Glucose (Fingerstick) 202 mg/dL (70-99) Microbiology 09/22/21 Blood Culture - Preliminary, Resulted NO GROWTH AFTER 1 DAY Medications Current Medications Daptomycin 760 mg/ Sodium Chloride 50 ml @ 100 mls/hr Q24H IV Last administered on 09/23/21at 15:43; Start 09/23/21 at 16:00 Dextrose (Dextrose 50%-Water Syringe) 12.5 gm PRN Q15MIN PRN IV SEE COMMENTS; Start 09/23/21 at 09:15 Insulin Human Lispro (HumaLOG) 0-5 UNITS TIDWMEALS SQ Last administered on 09/24/21at 08:14; Start 09/23/21 at 12:00 Magnesium Sulfate 50 ml @ 25 mls/hr 1X ONCE IV Last administered on 09/23/21at 19:52; Start 09/23/21 at 16:00; Stop 09/23/21 at 17:59; Status DC Magnesium Sulfate 3 gm/Dextrose 106 ml @ 35.333 mls/ hr 1X ONCE IV ; Start 09/23/21 at 15:45; Stop 09/23/21 at 18:44; Status UNV Magnesium Sulfate/ Dextrose 100 ml @ 100 mls/hr 1X ONCE IV Last administered on 09/23/21at 16:36; Start 09/23/21 at 18:00; Stop 09/23/21 at 18:59; Status DC Sterile Water (WATER for RESP) 2,000 ml CONT PRN INH VIA VAPOTHERM DEVICE Last administered on 09/23/21at 15:36; Start 09/23/21 at 15:30 Vitals/I & O Vital Sign - Last 24 Hours 09/23/21 09/23/21 09/23/21 09/23/21 09:15 09:30 10:00 11:00 Pulse 98 105 Resp 24 B/P (MAP) 118/70 119/48 160/81 Pulse Ox 93 93 94 O2 Delivery BiPAP/CPAP Nasal Cannula Nasal Cannula O2 Flow Rate 12.0 12.0 09/23/21 09/23/21 09/23/21 09/23/21 11:15 11:56 12:00 12:00 Temp 98.8 98.8 Pulse 105 Resp 24 B/P (MAP) 130/79 97/59 Pulse Ox 88 94 O2 Delivery High Flow Nasal Cannula Nasal Cannula Nasal Cannula O2 Flow Rate 12.0 12.0 12.0 09/23/21 09/23/21 09/23/21 09/23/21 13:00 13:15 14:00 14:15 Pulse 105 105 Resp 24 B/P (MAP) 107/46 125/72 79/47 86/58 Pulse Ox 94 94 O2 Delivery Nasal Cannula Nasal Cannula O2 Flow Rate 12.0 12.0 09/23/21 09/23/21 09/23/21 09/23/21 15:00 15:15 15:53 16:00 Pulse 105 Resp 24 B/P (MAP) 119/64 144/49 Pulse Ox 94 94 O2 Delivery Nasal Cannula vapotherm Vapotherm O2 Flow Rate 12.0 30.0 30.0 09/23/21 09/23/21 09/23/21 09/23/21 16:00 16:30 16:45 17:00 Temp 99.1 99.1 Pulse 105 105 Resp 24 B/P (MAP) 136/65 65/34 92/40 92/43 Pulse Ox 94 94 O2 Delivery Nasal Cannula Nasal Cannula O2 Flow Rate 12.0 12.0 09/23/21 09/23/21 09/23/21 09/23/21 17:09 17:15 17:30 18:00 Pulse 105 Resp 24 B/P (MAP) 99/41 107/57 107/47 Pulse Ox 95 94 O2 Delivery vapotherm Nasal Cannula O2 Flow Rate 30.0 12.0 09/23/21 09/23/21 09/23/21 09/23/21 18:30 18:45 19:00 20:00 Temp 98.4 98.4 Pulse 108 Resp 17 B/P (MAP) 90/43 102/49 108/53 Pulse Ox 94 O2 Delivery vap- 80/30 Vapotherm O2 Flow Rate 30.0 09/23/21 09/23/21 09/23/21 09/23/21 20:00 20:20 20:30 21:00 Pulse 113 109 108 Resp 17 17 17 B/P (MAP) 133/48 108/45 105/48 Pulse Ox 94 91 94 95 O2 Delivery vap- 80/30 vapotherm vap- 80/30 vap- 80/30 O2 Flow Rate 30.0 09/23/21 09/23/21 09/23/21 09/23/21 22:00 22:05 23:00 23:45 Pulse 111 107 Resp 18 20 B/P (MAP) 102/39 117/58 122/62 Pulse Ox 96 92 95 O2 Delivery vap- 80/30 vapotherm BiPAP/CPAP O2 Flow Rate 30.0 09/24/21 09/24/21 09/24/21 09/24/21 00:00 00:00 00:30 01:00 Temp 99.2 99.2 Pulse 105 105 Resp 21 B/P (MAP) 106/61 109/47 Pulse Ox 95 90 92 O2 Delivery Vapotherm BiPAP/CPAP BiPAP/CPAP BiPAP/CPAP O2 Flow Rate 30.0 09/24/21 09/24/21 09/24/21 09/24/21 01:45 02:00 02:50 03:00 Pulse 108 107 Resp 20 23 B/P (MAP) 83/45 99/41 112/49 Pulse Ox 93 91 93 O2 Delivery BiPAP/CPAP BiPAP/CPAP BiPAP/CPAP 09/24/21 09/24/21 09/24/21 09/24/21 04:00 04:00 04:45 05:00 Temp 98.2 98.2 Pulse 105 105 Resp 19 20 B/P (MAP) 110/43 125/44 100/43 Pulse Ox 92 92 O2 Delivery Vapotherm BiPAP/CPAP BiPAP/CPAP O2 Flow Rate 30.0 09/24/21 09/24/21 09/24/21 09/24/21 05:10 06:00 07:40 08:44 Pulse 102 Resp 20 B/P (MAP) 105/46 Pulse Ox 93 92 95 93 O2 Delivery BiPAP/CPAP BiPAP/CPAP BiPAP/CPAP vapotherm O2 Flow Rate 30.0 Intake and Output 0 09/23/21 09/23/21 09/24/21 15:00 23:00 07:00 Intake Total 1060 ml 2416 ml 1565 ml Output Total 365 ml 510 ml 475 ml Balance 695 ml 1906 ml 1090 ml Justifications for Admission Other Justification ANT LICEA MD Sep 24, 2021 09:11
--- NOTE | 2021-09-24 09:14 | PDOC ---
PULMONARY PROGRESS NOTES DATE: 09/24/21 TIME: 09:13 Subjective Off of BiPAP currently on nasal cannula oxygen, has some emesis this morning, probably related to air in the stomach from BiPAP use Vitals Vital Signs Date Time Temp Pulse Resp B/P (MAP) Pulse Ox O2 Delivery O2 Flow Rate FiO2 09/24/21 08:44 93 vapotherm 30.0 09/24/21 06:00 102 20 105/46 09/24/21 04:00 98.2 98.2 ROS: No Chest Pain, No Abdominal Pain, No Increase Cough General: Lethargic HEENT: Other Lungs: Clear Cardiovascular: S1, S2 Abdomen: Soft, Non-tender, Other Neuro Exam: Alert Extremities: Other (Decrease edema) Skin: Warm Labs Laboratory Tests Test 09/22/21 22:20 09/22/21 22:25 09/23/21 00:45 09/23/21 02:10 White Blood Count 23.4 x10^3/uL (4.0-11.0) 37.9 x10^3/uL (4.0-11.0) Red Blood Count 5.64 x10^6/uL (4.30-5.70) 5.10 x10^6/uL (4.30-5.70) Hemoglobin 14.8 g/dL (13.0-17.5) 13.5 g/dL (13.0-17.5) Hematocrit 47.5 % (39.0-53.0) 43.6 % (39.0-53.0) Mean Corpuscular Volume 84 fL (79-100) 85 fL (79-100) Mean Corpuscular Hemoglobin 26 pg (25-35) 27 pg (25-35) Mean Corpuscular Hemoglobin Concent 31 g/dL (31-37) 31 g/dL (31-37) Red Cell Distribution Width 17.3 % (11.5-14.5) 17.9 % (11.5-14.5) Platelet Count 185 x10^3/uL (140-400) 162 x10^3/uL (140-400) Neutrophils (%) (Auto) 91 % (31-73) 92 % (31-73) Lymphocytes (%) (Auto) 3 % (24-48) 3 % (24-48) Monocytes (%) (Auto) 5 % (0-9) 5 % (0-9) Eosinophils (%) (Auto) 0 % (0-3) 0 % (0-3) Basophils (%) (Auto) 1 % (0-3) 0 % (0-3) Neutrophils # (Auto) 21.3 x10^3/uL (1.8-7.7) 34.8 x10^3/uL (1.8-7.7) Lymphocytes # (Auto) 0.7 x10^3/uL (1.0-4.8) 1.1 x10^3/uL (1.0-4.8) Monocytes # (Auto) 1.1 x10^3/uL (0.0-1.1) 2.0 x10^3/uL (0.0-1.1) Eosinophils # (Auto) 0.0 x10^3/uL (0.0-0.7) 0.0 x10^3/uL (0.0-0.7) Basophils # (Auto) 0.2 x10^3/uL (0.0-0.2) 0.0 x10^3/uL (0.0-0.2) Sodium Level 132 mmol/L (136-145) 134 mmol/L (136-145) Potassium Level 3.8 mmol/L (3.5-5.1) 4.2 mmol/L (3.5-5.1) Chloride Level 95 mmol/L (98-107) 96 mmol/L (98-107) Carbon Dioxide Level 34 mmol/L (21-32) 31 mmol/L (21-32) Anion Gap 3 (6-14) 7 (6-14) Blood Urea Nitrogen 23 mg/dL (8-26) 26 mg/dL (8-26) Creatinine 1.7 mg/dL (0.7-1.3) 2.4 mg/dL (0.7-1.3) Estimated GFR (Cockcroft-Gault) 43.1 28.9 BUN/Creatinine Ratio 14 (6-20) 11 (6-20) Glucose Level 236 mg/dL (70-99) 220 mg/dL (70-99) Lactic Acid Level 2.7 mmol/L (0.4-2.0) 4.5 mmol/L (0.4-2.0) Calcium Level 9.2 mg/dL (8.5-10.1) 8.7 mg/dL (8.5-10.1) Phosphorus Level 1.3 mg/dL (2.6-4.7) Magnesium Level 1.3 mg/dL (1.8-2.4) Total Bilirubin 1.1 mg/dL (0.2-1.0) 0.9 mg/dL (0.2-1.0) Aspartate Amino Transf (AST/SGOT) 47 U/L (15-37) 39 U/L (15-37) Alanine Aminotransferase (ALT/SGPT) 68 U/L (16-63) 51 U/L (16-63) Alkaline Phosphatase 155 U/L (46-116) 102 U/L (46-116) Troponin I High Sensitivity 63 ng/L (4-75) RU-Jbc-S-Type Natriuretic Peptide 579 pg/mL (0-124) Total Protein 7.3 g/dL (6.4-8.2) 6.5 g/dL (6.4-8.2) Albumin 2.9 g/dL (3.4-5.0) 2.2 g/dL (3.4-5.0) Albumin/Globulin Ratio 0.7 (1.0-1.7) 0.5 (1.0-1.7) O2 Saturation 84 % (92-99) Arterial Blood pH 7.28 (7.35-7.45) Arterial Blood pH (Temp corrected) 7.25 Arterial Blood pCO2 at Patient Temp 77 mmHg (35-46) Arterial Blood pCO2 (Temp correct) 85 mmHg Arterial Blood pO2 at Patient Temp 53 mmHg (75-108) Arterial Blood pO2 (Temp corrected) 62 mmHg Arterial Blood HCO3 35 mmol/L (21-28) Arterial Blood Base Excess 5 mmol/L (-3-3) FiO2 36 (4l nc) Influenza Type A Antigen Negative (NEGATIVE) Influenza Type B Antigen Negative (NEGATIVE) SARS-CoV-2 Antigen (Rapid) Negative (NEGATIVE) Segmented Neutrophils % 83 % (35-66) Band Neutrophils % 11 % (0-9) Lymphocytes % 3 % (24-48) Monocytes % 3 % (0-10) Toxic Granulation Slight Platelet Estimate Adequate (ADEQUATE) Polychromasia Slight Anisocytosis Slight Test 09/23/21 08:00 09/23/21 12:32 09/23/21 12:36 09/23/21 16:33 O2 Saturation 89 % (92-99) Arterial Blood pH 7.31 (7.35-7.45) Arterial Blood pCO2 at Patient Temp 56 mmHg (35-46) Arterial Blood pO2 at Patient Temp 59 mmHg (75-108) Arterial Blood HCO3 28 mmol/L (21-28) Arterial Blood Base Excess 0 mmol/L (-3-3) FiO2 45% bipap Glucose (Fingerstick) 188 mg/dL (70-99) 158 mg/dL (70-99) Coronavirus (COVID-19)(PCR) Not detected (NOT DETECTD) Test 09/24/21 04:00 09/24/21 08:04 White Blood Count 28.5 x10^3/uL (4.0-11.0) Red Blood Count 5.07 x10^6/uL (4.30-5.70) Hemoglobin 13.5 g/dL (13.0-17.5) Hematocrit 42.7 % (39.0-53.0) Mean Corpuscular Volume 84 fL (79-100) Mean Corpuscular Hemoglobin 27 pg (25-35) Mean Corpuscular Hemoglobin Concent 32 g/dL (31-37) Red Cell Distribution Width 17.6 % (11.5-14.5) Platelet Count 168 x10^3/uL (140-400) Neutrophils (%) (Auto) 88 % (31-73) Lymphocytes (%) (Auto) 6 % (24-48) Monocytes (%) (Auto) 7 % (0-9) Eosinophils (%) (Auto) 0 % (0-3) Basophils (%) (Auto) 0 % (0-3) Neutrophils # (Auto) 24.9 x10^3/uL (1.8-7.7) Lymphocytes # (Auto) 1.6 x10^3/uL (1.0-4.8) Monocytes # (Auto) 1.9 x10^3/uL (0.0-1.1) Eosinophils # (Auto) 0.0 x10^3/uL (0.0-0.7) Basophils # (Auto) 0.0 x10^3/uL (0.0-0.2) Sodium Level 132 mmol/L (136-145) Potassium Level 4.6 mmol/L (3.5-5.1) Chloride Level 93 mmol/L (98-107) Carbon Dioxide Level 33 mmol/L (21-32) Anion Gap 6 (6-14) Blood Urea Nitrogen 42 mg/dL (8-26) Creatinine 2.8 mg/dL (0.7-1.3) Estimated GFR (Cockcroft-Gault) 24.2 Glucose Level 187 mg/dL (70-99) Calcium Level 8.3 mg/dL (8.5-10.1) Phosphorus Level 6.0 mg/dL (2.6-4.7) Magnesium Level 2.1 mg/dL (1.8-2.4) Creatine Kinase 71 U/L (39-308) Glucose (Fingerstick) 202 mg/dL (70-99) Laboratory Tests Test 09/23/21 12:32 09/23/21 12:36 09/23/21 16:33 09/24/21 04:00 Glucose (Fingerstick) 188 mg/dL (70-99) 158 mg/dL (70-99) Coronavirus (COVID-19)(PCR) Not detected (NOT DETECTD) White Blood Count 28.5 x10^3/uL (4.0-11.0) Red Blood Count 5.07 x10^6/uL (4.30-5.70) Hemoglobin 13.5 g/dL (13.0-17.5) Hematocrit 42.7 % (39.0-53.0) Mean Corpuscular Volume 84 fL (79-100) Mean Corpuscular Hemoglobin 27 pg (25-35) Mean Corpuscular Hemoglobin Concent 32 g/dL (31-37) Red Cell Distribution Width 17.6 % (11.5-14.5) Platelet Count 168 x10^3/uL (140-400) Neutrophils (%) (Auto) 88 % (31-73) Lymphocytes (%) (Auto) 6 % (24-48) Monocytes (%) (Auto) 7 % (0-9) Eosinophils (%) (Auto) 0 % (0-3) Basophils (%) (Auto) 0 % (0-3) Neutrophils # (Auto) 24.9 x10^3/uL (1.8-7.7) Lymphocytes # (Auto) 1.6 x10^3/uL (1.0-4.8) Monocytes # (Auto) 1.9 x10^3/uL (0.0-1.1) Eosinophils # (Auto) 0.0 x10^3/uL (0.0-0.7) Basophils # (Auto) 0.0 x10^3/uL (0.0-0.2) Sodium Level 132 mmol/L (136-145) Potassium Level 4.6 mmol/L (3.5-5.1) Chloride Level 93 mmol/L (98-107) Carbon Dioxide Level 33 mmol/L (21-32) Anion Gap 6 (6-14) Blood Urea Nitrogen 42 mg/dL (8-26) Creatinine 2.8 mg/dL (0.7-1.3) Estimated GFR (Cockcroft-Gault) 24.2 Glucose Level 187 mg/dL (70-99) Calcium Level 8.3 mg/dL (8.5-10.1) Phosphorus Level 6.0 mg/dL (2.6-4.7) Magnesium Level 2.1 mg/dL (1.8-2.4) Creatine Kinase 71 U/L (39-308) Test 09/24/21 08:04 Glucose (Fingerstick) 202 mg/dL (70-99) Medications Active Scripts Medications Dose Route/Sig Max Daily Dose Days Date Category [Albuterol] 09/23/21 Reported Jardiance (Empagliflozin) 25 Mg Tablet 1 Tab PO DAILY 09/23/21 Reported Benzonatate 200 Mg Capsule 1 Cap PO PRN TID PRN 08/19/21 Rx Ventolin Hfa Inhaler (Albuterol Sulfate) 18 Gm Hfa.aer.ad 2 Puff INH Q4HRS 08/19/21 Rx Doxycycline Hyclate 100 Mg Capsule 1 Cap PO BID 7 08/19/21 Rx Bumetanide 2 Mg Tablet 2 Mg PO BID 30 02/04/20 Rx Aspirin Ec (Aspirin) 325 Mg Tablet.dr 325 Mg PO DAILYWBKFT 30 02/04/20 Rx [Fluconazole] 100 MG Tablet 400 Mg PO DAILY 10 08/19/19 Rx Hydralazine Hcl 50 Mg Tablet 50 Mg PO TID 90 08/19/19 Rx K-Tab ER (Potassium Chloride) 20 Meq Tablet.er 20 Meq PO BID 30 08/19/19 Rx One-A-Day Essential (Multivitamin) 1 Each Tablet 1 Tab PO DAILY 30 08/15/19 Reported Metformin Hcl 500 Mg Tablet 2 Tab PO BIDWMEALS 08/15/19 Reported Carvedilol (Carvedilol) 12.5 Mg Tablet 2 Tab PO BIDWMEALS 08/15/19 Reported Lisinopril 20 Mg Tablet 1 Tab PO DAILY 08/15/19 Reported Impression . IMPRESSION: 1. Acute on chronic hypoxemic hypercapnic respiratory failure. 2. Sepsis. 3. Fever related to the above. 4. Marked leukocytosis. 5. Morbid obesity. 6. Acute on chronic renal insufficiency. 7. Lactic acidosis. 8. Protein malnutrition present upon admission. 9. Rapid test for SARS-CoV-2 negative. Plan . Updated 09/24 White count 28,000 ABG better from yesterday PCR negative Follow ID input As needed BiPAP Bronchodilators Follow nephrology input Total cumulative critical care time of 30 minutes PLAN: 1. We will continue current empiric antibiotics. 2. PCR for COVID-19. 3. Continue p.r.n. BiPAP. 4. Consult Nephrology, already performed. 5. DVT prophylaxis. 6. Bronchodilators. I do appreciate the privilege in sharing in the patient's care. Total critical care time of 45 minutes. DAVID URBINA MD Sep 24, 2021 09:14
--- NOTE | 2021-09-24 09:15 | PDOC2 ---
CONSULT Date of Consult Date of Consult DATE: 09/24/21 TIME: 09:12 Reason for Consult Reason for Consult: [facility] Identification/Chief Complaint Chief Complaint Unable to Obtain Source Source: Chart review History of Present Illness Reason for Visit: Patient is a 51-year-old CM has a history of morbid obesity, obstructive sleep apnea, diabetes, congestive heart failure, cor pulmonale, and also diabetes. He was in the Emergency Room a month ago for bronchitis and pneumonia, was treated with oral antibiotics. He reported he was doing relatively well ; but a day before coming back to the ER he noticed some chills and fever, not feeling well, was brought to the hospital , admitted on 09/23 , found to have elevated WBC count Chest x-ray shows infiltrate in the lung. CT scan shows pneumonia. Blood gas at presentation with pH 7.28, pCO2 of 77, pO2 of 85 on 4 liters. Lactic acid elevated , hypotensive . He is admitted to the ICU, was given IV fluids and started on Levophed No reported N/V/D. No F/C .No urinary complaints at home. Currently has [place] [facility] Past Medical History Cardiovascular: CHF, HTN, Hyperlipidemia, Other Pulmonary: Pneumonia, Other CENTRAL NERVOUS SYSTEM: Other GI: No pertinent hx Heme/Onc: No pertinent hx Hepatobiliary: No pertinent hx Psych: No pertinent hx Musculoskeletal: Osteoarthritis Infectious disease: Other Renal/: UTI Endocrine: Diabetes Past Surgical History Past Surgical History: Other Family History Family History: Hypertension Social History ALCOHOL: none Drugs: None Lives: with Family Current Problem List Problem List Problems Medical Problems: (1) Acute on chronic respiratory failure with hypoxia and hypercapnia Status: Acute (2) Community acquired pneumonia Status: Acute Current Medications Current Medications Current Medications Acetaminophen (Tylenol) 1,000 mg 1X ONCE PO Last administered on 09/23/21at 00:12; Start 09/22/21 at 22:30; Stop 09/22/21 at 22:31; Status DC Sodium Chloride 1,000 ml @ 1,000 mls/hr 1X ONCE IV ; Start 09/22/21 at 22:30; Stop 09/22/21 at 23:29; Status DC Albuterol/ Ipratropium (Duoneb) 3 ml 1X ONCE NEB Last administered on 09/22/21at 22:05; Start 09/22/21 at 22:30; Stop 09/22/21 at 22:31; Status DC Doxycycline Hyclate 100 mg/ Dextrose 100 ml @ 50 mls/hr 1X ONCE IV ; Start at 23:30; Stop 09/23/21 at 01:29; Status DC Ceftriaxone Sodium (Rocephin) 2 gm 1X ONCE IVP Last administered on 09/23/21at 00:11; Start 09/22/21 at 23:30; Stop 09/22/21 at 23:31; Status DC Ondansetron HCl (Zofran) 4 mg PRN Q8HRS PRN IVP NAUSEA/VOMITING 1ST CHOICE Last administered on 09/23/21at 22:55; Start 09/22/21 at 23:15; Stop 09/23/21 at 23:14; Status DC Fentanyl Citrate (Fentanyl 2ml Vial) 50 mcg PRN Q1HR PRN IVP SEVERE PAIN 7-10; Start 09/22/21 at 23:15; Stop 09/23/21 at 23:14; Status DC Acetaminophen (Tylenol) 650 mg PRN Q4HRS PRN PO FEVER > 100.3'F Last administered on 09/23/21at 23:04; Start 09/22/21 at 23:15; Stop 09/23/21 at 23:14; Status DC Albuterol Sulfate (Ventolin Neb Soln) 2.5 mg PRN Q4HRS PRN NEB SHORTNESS OF BREATH; Start 09/22/21 at 23:30 Sodium Chloride 1,000 ml @ 125 mls/hr 1X ONCE IV ; Start 09/22/21 at 23:15; Stop 09/23/21 at 07:14; Status DC Norepinephrine Bitartrate 8 mg/ Dextrose 258 ml @ 40.442 mls/ hr CONT PRN IV PER PROTOCOL Last administered on 09/24/21at 04:45; Start 09/23/21 at 01:45 Sodium Chloride 1,000 ml @ 75 mls/hr [id number] IV Last administered on 09/24/21at 04:45; Start 09/23/21 at 02:15 Piperacillin Sod/ Tazobactam Sod (Zosyn Per Pharmacy) 1 each PRN DAILY PRN MC SEE COMMENTS; Start 09/23/21 at 08:45 Piperacillin Sod/ Tazobactam Sod 3.375 gm/Sodium Chloride 50 ml @ 100 mls/hr Q6HRS IV Last administered on 09/24/21at 05:27; Start 09/23/21 at 09:00 Enoxaparin Sodium (Lovenox Per Pharmacy Prophylaxis Dosing) 1 each PRN DAILY PRN MC SEE COMMENTS; Start 09/23/21 at 09:00 Enoxaparin Sodium (Lovenox 60mg Syringe) 60 mg Q12HR SQ Last administered on 09/24/21at 08:14; Start 09/23/21 at 09:00 Daptomycin 760 mg/ Sodium Chloride 50 ml @ 100 mls/hr Q24H IV Last administered on 09/23/21at 15:43; Start 09/23/21 at 16:00 Insulin Human Lispro (HumaLOG) 0-5 UNITS TIDWMEALS SQ Last administered on 09/24/21at 08:14; Start 09/23/21 at 12:00 Dextrose (Dextrose 50%-Water Syringe) 12.5 gm PRN Q15MIN PRN IV SEE COMMENTS; Start 09/23/21 at 09:15 Sterile Water (WATER for RESP) 2,000 ml CONT PRN INH VIA VAPOTHERM DEVICE Last administered on 09/23/21at 15:36; Start 09/23/21 at 15:30 Magnesium Sulfate 3 gm/Dextrose 106 ml @ 35.333 mls/ hr 1X ONCE IV ; Start 09/23/21 at 15:45; Stop 09/23/21 at 18:44; Status UNV Magnesium Sulfate 50 ml @ 25 mls/hr 1X ONCE IV Last administered on 09/23/21at 19:52; Start 09/23/21 at 16:00; Stop 09/23/21 at 17:59; Status DC Magnesium Sulfate/ Dextrose 100 ml @ 100 mls/hr 1X ONCE IV Last administered on 09/23/21at 16:36; Start 09/23/21 at 18:00; Stop 09/23/21 at 18:59; Status DC Active Scripts Active Benzonatate 200 Mg Capsule 1 Cap PO PRN TID PRN Ventolin Hfa Inhaler (Albuterol Sulfate) 18 Gm Hfa.aer.ad 2 Puff INH Q4HRS Doxycycline Hyclate 100 Mg Capsule 1 Cap PO BID 7 Days Bumetanide 2 Mg Tablet 2 Mg PO BID 30 Days Aspirin Ec (Aspirin) 325 Mg Tablet.dr 325 Mg PO DAILYWBKFT 30 Days [Fluconazole] 100 MG Tablet 400 Mg PO DAILY 10 Days Hydralazine Hcl 50 Mg Tablet 50 Mg PO TID 90 Days K-Tab ER (Potassium Chloride) 20 Meq Tablet.er 20 Meq PO BID 30 Days Reported [Albuterol] Jardiance (Empagliflozin) 25 Mg Tablet 1 Tab PO DAILY One-A-Day Essential (Multivitamin) 1 Each Tablet 1 Tab PO DAILY 30 Days Metformin Hcl 500 Mg Tablet 2 Tab PO BIDWMEALS Carvedilol (Carvedilol) 12.5 Mg Tablet 2 Tab PO BIDWMEALS Lisinopril 20 Mg Tablet 1 Tab PO DAILY Allergies Allergies: Coded Allergies: morphine (Verified Allergy, Intermediate, 09/29/18) Bleach (Sodium Hypochlorite) (Verified Adverse Reaction, Intermediate, 02/13/18) ROS Review of System As per HPI, rest of the ROS is negative Physical Exam Physical Exam GENERAL: not in distress.Morbidly obese HEENT: Both pupils are round and reacting. No conjunctival lesion, OM moist NECK: Supple, no JVP, no lymphadenopathy. LUNGS: Clear.non labored HEART: S1, S2, regular. ABDOMEN: Soft, nontender, no organomegaly.Obese EXTREMITIES: No edema or cyanosis. Chronic changes present in the legs. NEUROLOGIC: No focal neurologic deficit [place] in place , No CVA or SP tenderness DERM No Rash Vital Signs Vital Signs Date Time Temp Pulse Resp B/P (MAP) Pulse Ox O2 Delivery O2 Flow Rate FiO2 09/24/21 08:44 93 vapotherm 30.0 09/24/21 06:00 102 20 105/46 09/24/21 04:00 98.2 98.2 Assessment & Plan [facility] - ATN/Vomiting /Hypotension /Sepsis , Non Oliguric maintain fluid balance .Currently on Pressor support . No emergent indication for dialysis Supportive care, avoid nephrotoxins, I/O . 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 Fever / Sepsis/ Marked leukocytosis. COPD Morbid obesity. Labs Labs Laboratory Tests Test 09/22/21 22:20 09/22/21 22:25 09/23/21 00:45 09/23/21 02:10 White Blood Count 23.4 x10^3/uL (4.0-11.0) 37.9 x10^3/uL (4.0-11.0) Red Blood Count 5.64 x10^6/uL (4.30-5.70) 5.10 x10^6/uL (4.30-5.70) Hemoglobin 14.8 g/dL (13.0-17.5) 13.5 g/dL (13.0-17.5) Hematocrit 47.5 % (39.0-53.0) 43.6 % (39.0-53.0) Mean Corpuscular Volume 84 fL (79-100) 85 fL (79-100) Mean Corpuscular Hemoglobin 26 pg (25-35) 27 pg (25-35) Mean Corpuscular Hemoglobin Concent 31 g/dL (31-37) 31 g/dL (31-37) Red Cell Distribution Width 17.3 % (11.5-14.5) 17.9 % (11.5-14.5) Platelet Count 185 x10^3/uL (140-400) 162 x10^3/uL (140-400) Neutrophils (%) (Auto) 91 % (31-73) 92 % (31-73) Lymphocytes (%) (Auto) 3 % (24-48) 3 % (24-48) Monocytes (%) (Auto) 5 % (0-9) 5 % (0-9) Eosinophils (%) (Auto) 0 % (0-3) 0 % (0-3) Basophils (%) (Auto) 1 % (0-3) 0 % (0-3) Neutrophils # (Auto) 21.3 x10^3/uL (1.8-7.7) 34.8 x10^3/uL (1.8-7.7) Lymphocytes # (Auto) 0.7 x10^3/uL (1.0-4.8) 1.1 x10^3/uL (1.0-4.8) Monocytes # (Auto) 1.1 x10^3/uL (0.0-1.1) 2.0 x10^3/uL (0.0-1.1) Eosinophils # (Auto) 0.0 x10^3/uL (0.0-0.7) 0.0 x10^3/uL (0.0-0.7) Basophils # (Auto) 0.2 x10^3/uL (0.0-0.2) 0.0 x10^3/uL (0.0-0.2) Sodium Level 132 mmol/L (136-145) 134 mmol/L (136-145) Potassium Level 3.8 mmol/L (3.5-5.1) 4.2 mmol/L (3.5-5.1) Chloride Level 95 mmol/L (98-107) 96 mmol/L (98-107) Carbon Dioxide Level 34 mmol/L (21-32) 31 mmol/L (21-32) Anion Gap 3 (6-14) 7 (6-14) Blood Urea Nitrogen 23 mg/dL (8-26) 26 mg/dL (8-26) Creatinine 1.7 mg/dL (0.7-1.3) 2.4 mg/dL (0.7-1.3) Estimated GFR (Cockcroft-Gault) 43.1 28.9 BUN/Creatinine Ratio 14 (6-20) 11 (6-20) Glucose Level 236 mg/dL (70-99) 220 mg/dL (70-99) Lactic Acid Level 2.7 mmol/L (0.4-2.0) 4.5 mmol/L (0.4-2.0) Calcium Level 9.2 mg/dL (8.5-10.1) 8.7 mg/dL (8.5-10.1) Phosphorus Level 1.3 mg/dL (2.6-4.7) Magnesium Level 1.3 mg/dL (1.8-2.4) Total Bilirubin 1.1 mg/dL (0.2-1.0) 0.9 mg/dL (0.2-1.0) Aspartate Amino Transf (AST/SGOT) 47 U/L (15-37) 39 U/L (15-37) Alanine Aminotransferase (ALT/SGPT) 68 U/L (16-63) 51 U/L (16-63) Alkaline Phosphatase 155 U/L (46-116) 102 U/L (46-116) Troponin I High Sensitivity 63 ng/L (4-75) XQ-Pwe-X-Type Natriuretic Peptide 579 pg/mL (0-124) Total Protein 7.3 g/dL (6.4-8.2) 6.5 g/dL (6.4-8.2) Albumin 2.9 g/dL (3.4-5.0) 2.2 g/dL (3.4-5.0) Albumin/Globulin Ratio 0.7 (1.0-1.7) 0.5 (1.0-1.7) O2 Saturation 84 % (92-99) Arterial Blood pH 7.28 (7.35-7.45) Arterial Blood pH (Temp corrected) 7.25 Arterial Blood pCO2 at Patient Temp 77 mmHg (35-46) Arterial Blood pCO2 (Temp correct) 85 mmHg Arterial Blood pO2 at Patient Temp 53 mmHg (75-108) Arterial Blood pO2 (Temp corrected) 62 mmHg Arterial Blood HCO3 35 mmol/L (21-28) Arterial Blood Base Excess 5 mmol/L (-3-3) FiO2 36 (4l nc) Influenza Type A Antigen Negative (NEGATIVE) Influenza Type B Antigen Negative (NEGATIVE) SARS-CoV-2 Antigen (Rapid) Negative (NEGATIVE) Segmented Neutrophils % 83 % (35-66) Band Neutrophils % 11 % (0-9) Lymphocytes % 3 % (24-48) Monocytes % 3 % (0-10) Toxic Granulation Slight Platelet Estimate Adequate (ADEQUATE) Polychromasia Slight Anisocytosis Slight Test 09/23/21 08:00 09/23/21 12:32 09/23/21 12:36 09/23/21 16:33 O2 Saturation 89 % (92-99) Arterial Blood pH 7.31 (7.35-7.45) Arterial Blood pCO2 at Patient Temp 56 mmHg (35-46) Arterial Blood pO2 at Patient Temp 59 mmHg (75-108) Arterial Blood HCO3 28 mmol/L (21-28) Arterial Blood Base Excess 0 mmol/L (-3-3) FiO2 45% bipap Glucose (Fingerstick) 188 mg/dL (70-99) 158 mg/dL (70-99) Coronavirus (COVID-19)(PCR) Not detected (NOT DETECTD) Test 09/24/21 04:00 09/24/21 08:04 White Blood Count 28.5 x10^3/uL (4.0-11.0) Red Blood Count 5.07 x10^6/uL (4.30-5.70) Hemoglobin 13.5 g/dL (13.0-17.5) Hematocrit 42.7 % (39.0-53.0) Mean Corpuscular Volume 84 fL (79-100) Mean Corpuscular Hemoglobin 27 pg (25-35) Mean Corpuscular Hemoglobin Concent 32 g/dL (31-37) Red Cell Distribution Width 17.6 % (11.5-14.5) Platelet Count 168 x10^3/uL (140-400) Neutrophils (%) (Auto) 88 % (31-73) Lymphocytes (%) (Auto) 6 % (24-48) Monocytes (%) (Auto) 7 % (0-9) Eosinophils (%) (Auto) 0 % (0-3) Basophils (%) (Auto) 0 % (0-3) Neutrophils # (Auto) 24.9 x10^3/uL (1.8-7.7) Lymphocytes # (Auto) 1.6 x10^3/uL (1.0-4.8) Monocytes # (Auto) 1.9 x10^3/uL (0.0-1.1) Eosinophils # (Auto) 0.0 x10^3/uL (0.0-0.7) Basophils # (Auto) 0.0 x10^3/uL (0.0-0.2) Sodium Level 132 mmol/L (136-145) Potassium Level 4.6 mmol/L (3.5-5.1) Chloride Level 93 mmol/L (98-107) Carbon Dioxide Level 33 mmol/L (21-32) Anion Gap 6 (6-14) Blood Urea Nitrogen 42 mg/dL (8-26) Creatinine 2.8 mg/dL (0.7-1.3) Estimated GFR (Cockcroft-Gault) 24.2 Glucose Level 187 mg/dL (70-99) Calcium Level 8.3 mg/dL (8.5-10.1) Phosphorus Level 6.0 mg/dL (2.6-4.7) Magnesium Level 2.1 mg/dL (1.8-2.4) Creatine Kinase 71 U/L (39-308) Glucose (Fingerstick) 202 mg/dL (70-99) Laboratory Tests Test 09/23/21 12:32 09/23/21 12:36 09/23/21 16:33 09/24/21 04:00 Glucose (Fingerstick) 188 mg/dL (70-99) 158 mg/dL (70-99) Coronavirus (COVID-19)(PCR) Not detected (NOT DETECTD) White Blood Count 28.5 x10^3/uL (4.0-11.0) Red Blood Count 5.07 x10^6/uL (4.30-5.70) Hemoglobin 13.5 g/dL (13.0-17.5) Hematocrit 42.7 % (39.0-53.0) Mean Corpuscular Volume 84 fL (79-100) Mean Corpuscular Hemoglobin 27 pg (25-35) Mean Corpuscular Hemoglobin Concent 32 g/dL (31-37) Red Cell Distribution Width 17.6 % (11.5-14.5) Platelet Count 168 x10^3/uL (140-400) Neutrophils (%) (Auto) 88 % (31-73) Lymphocytes (%) (Auto) 6 % (24-48) Monocytes (%) (Auto) 7 % (0-9) Eosinophils (%) (Auto) 0 % (0-3) Basophils (%) (Auto) 0 % (0-3) Neutrophils # (Auto) 24.9 x10^3/uL (1.8-7.7) Lymphocytes # (Auto) 1.6 x10^3/uL (1.0-4.8) Monocytes # (Auto) 1.9 x10^3/uL (0.0-1.1) Eosinophils # (Auto) 0.0 x10^3/uL (0.0-0.7) Basophils # (Auto) 0.0 x10^3/uL (0.0-0.2) Sodium Level 132 mmol/L (136-145) Potassium Level 4.6 mmol/L (3.5-5.1) Chloride Level 93 mmol/L (98-107) Carbon Dioxide Level 33 mmol/L (21-32) Anion Gap 6 (6-14) Blood Urea Nitrogen 42 mg/dL (8-26) Creatinine 2.8 mg/dL (0.7-1.3) Estimated GFR (Cockcroft-Gault) 24.2 Glucose Level 187 mg/dL (70-99) Calcium Level 8.3 mg/dL (8.5-10.1) Phosphorus Level 6.0 mg/dL (2.6-4.7) Magnesium Level 2.1 mg/dL (1.8-2.4) Creatine Kinase 71 U/L (39-308) Test 09/24/21 08:04 Glucose (Fingerstick) 202 mg/dL (70-99) Review All relevant outside records, renal labs, imaging studies, telemetry/EKG's were reviewed. Images Images CT CHEST WO CONTRAST CT chest without contrast PQRS statement: CT scans at this facility use dose reduction including either automated exposure control, iterative reconstructions, and /or weight based radiation dosing via mA and kV modification when appropriate to reduce radiation dose to as low as reasonably achievable. HISTORY: Dyspnea. Pneumonia. FINDINGS: Mild cardiomegaly. Small volume of pericardial fluid. Coronary calcified plaque. Esophagus, aorta and pulmonary vessels are unremarkable. There is mild mediastinal adenopathy largest lymph nodes measuring up to 2 x 1 cm at the AP window. Trachea and bronchi are unremarkable. Calcified granulomas left chest. No pneumothorax. No pleural effusions. There is respiratory motion artifact in the lung bases, there are asymmetric heterogeneous bandlike opacities likely atelectasis of the right middle lobe. Bones are unremarkable. IMPRESSION: 1. Right middle lobe heterogeneous linear densities likely extensive discoid atelectasis. Superimposed lobar pneumonia is not excluded. Consider follow-up CT chest imaging in 6 months. 2. Mild cardiomegaly. 2. Mild mediastinal adenopathy as described above. VASHTI ANTONY MD Sep 24, 2021 09:15
--- NOTE | 2021-09-24 11:28 | PDOC ---
Infectious Disease Note Subjective Subjective Pt with out complaints Fever pattern improved Vital Sign Vital Signs Vital Signs Date Time Temp Pulse Resp B/P (MAP) Pulse Ox O2 Delivery O2 Flow Rate FiO2 09/24/21 11:21 92 vapotherm 30.0 09/24/21 06:00 102 20 105/46 09/24/21 04:00 98.2 98.2 Physical Exam PHYSICAL EXAM GENERAL: Alert, oriented gentleman, not in distress. VITAL SIGNS: Stable. The patient did have a T-max of 103.2. Currently, his temperature is normal, pulse 73, respirations 16, blood pressure 125/66. HEENT: Both pupils are round and reacting. No conjunctival lesion, no lesion in the mouth. NECK: Supple, no JVP, no lymphadenopathy. LUNGS: Clear. HEART: S1, S2, regular. ABDOMEN: Soft, nontender, no organomegaly. EXTREMITIES: No edema or cyanosis. Chronic changes present in the legs. NEUROLOGIC: The patient is alert, awake, and appropriate. No focal neurologic deficit. Labs Lab Laboratory Tests Test 09/23/21 12:32 09/23/21 12:36 09/23/21 16:33 09/24/21 04:00 Glucose (Fingerstick) 188 mg/dL (70-99) 158 mg/dL (70-99) Coronavirus (COVID-19)(PCR) Not detected (NOT DETECTD) White Blood Count 28.5 x10^3/uL (4.0-11.0) Red Blood Count 5.07 x10^6/uL (4.30-5.70) Hemoglobin 13.5 g/dL (13.0-17.5) Hematocrit 42.7 % (39.0-53.0) Mean Corpuscular Volume 84 fL (79-100) Mean Corpuscular Hemoglobin 27 pg (25-35) Mean Corpuscular Hemoglobin Concent 32 g/dL (31-37) Red Cell Distribution Width 17.6 % (11.5-14.5) Platelet Count 168 x10^3/uL (140-400) Neutrophils (%) (Auto) 88 % (31-73) Lymphocytes (%) (Auto) 6 % (24-48) Monocytes (%) (Auto) 7 % (0-9) Eosinophils (%) (Auto) 0 % (0-3) Basophils (%) (Auto) 0 % (0-3) Neutrophils # (Auto) 24.9 x10^3/uL (1.8-7.7) Lymphocytes # (Auto) 1.6 x10^3/uL (1.0-4.8) Monocytes # (Auto) 1.9 x10^3/uL (0.0-1.1) Eosinophils # (Auto) 0.0 x10^3/uL (0.0-0.7) Basophils # (Auto) 0.0 x10^3/uL (0.0-0.2) Sodium Level 132 mmol/L (136-145) Potassium Level 4.6 mmol/L (3.5-5.1) Chloride Level 93 mmol/L (98-107) Carbon Dioxide Level 33 mmol/L (21-32) Anion Gap 6 (6-14) Blood Urea Nitrogen 42 mg/dL (8-26) Creatinine 2.8 mg/dL (0.7-1.3) Estimated GFR (Cockcroft-Gault) 24.2 Glucose Level 187 mg/dL (70-99) Calcium Level 8.3 mg/dL (8.5-10.1) Phosphorus Level 6.0 mg/dL (2.6-4.7) Magnesium Level 2.1 mg/dL (1.8-2.4) Creatine Kinase 71 U/L (39-308) Test 09/24/21 08:04 Glucose (Fingerstick) 202 mg/dL (70-99) Micro Microbiology 09/22/21 Blood Culture - Preliminary, Resulted NO GROWTH AFTER 1 DAY Objective Assessment 1. Fever and chills. 2. Leukocytosis. 3. Respiratory failure. 4. Circulatory failure. 5. Lactic acidosis. 6. Chronic obstructive pulmonary disease. 7. Morbid obesity. 8. History of right-sided heart failure. Plan Plan of Care Continue daptomycin and Zosyn CT Chest abdomen and pelvis F/U labs and cultures Cont supportive care . HEATHER WU MD Sep 24, 2021 11:28
[2021-09-24] MEDS: DAPTOmycin (GENERIC) IVPB 760 MG in IV NORMAL SALINE 50ML 50 ML IV SCH (16:11)
--- NOTE | 2021-09-24 16:40 | RAD ---
EXAM: CT CHEST, ABDOMEN, AND PELVIS WITHOUT CONTRAST INDICATION: Short of air COMPARISON: CT chest 09/22/[address] abdomen and pelvis 07/02/2017 TECHNIQUE: Helical CT imaging performed of the chest, abdomen and pelvis without the use of intraveno us contrast. Sagittal and coronal reformats were obtained. One or more of the following individualized dose reduction techniques were utilized for this examinat ion: 1. Automated exposure control 2. Adjustment of the mA and/or kV according to patient size 3. Use of iterative reconstruction technique. FINDINGS: CHEST: Thyroid gland and thoracic inlet: The visualized thyroid gland is normal. Heart and great vessels: Mild cardiomegaly. Minimal pericardial effusion, unchanged. There are hodgson ry artery and mitral annulus calcifications. Vascularity is normal in caliber. Mediastinum and andi: No mediastinal or hilar lymphadenopathy. Lungs and pleura: There is new complete consolidation of the right middle and lower lobes with volume loss, likely reflecting complete atelectasis. There is a cut off appearance of the right bronchus in termedius. New mild scattered confluent opacities in the posterior left lower lobe, posterior left up per lobe, and posterior right upper lobe. No pleural effusion. Chest wall and axillae: No axillary lymphadenopathy. Bones: No acute osseous abnormality in the chest. ABDOMEN AND PELVIS: Liver: The liver is enlarged measuring 22.7 cm in length. There are calcified hepatic granulomas. Gallbladder/Biliary Tree: Cholelithiasis. Pancreas: Pancreatic atrophy. Spleen: The spleen is mildly enlarged measuring 16 cm in length. There are calcified splenic granulom as. Adrenal Glands: Normal. Kidneys/Ureters/Bladder: Kidneys are normal in size. No nephrolithiasis or hydronephrosis. There is a 2.2 cm hypodense exophytic left renal lesion, likely a simple or minimally complicated cyst. The alem dder is decompressed around a [place] catheter. Gas in the bladder may be related to instrumentation. Reproductive Organs: Prostate gland is normal. Stomach, small bowel, and colon: The stomach, small bowel, and colon are unremarkable. Vasculature: No aortic aneurysm. Lymph Nodes: There are multiple prominent left periaortic and iliac chain lymph nodes. For example, a left external iliac lymph node measuring 2.2 cm short axis, a left periaortic lymph node node measur ing 1.3 cm short axis. There are mildly enlarged left inguinal lymph noted measuring up to 2 cm short axis. This is all similar to 07/02/2017 Peritoneum and retroperitoneum: No free fluid or free air. Bones: No acute osseous abnormality. IMPRESSION: 1. New complete consolidation of the right middle and lower lobes with volume loss, likely reflectin g complete atelectasis. 2. New scattered opacities elsewhere the lungs could be due to atelectasis or pneumonia. 3. Hepatosplenomegaly. 4. Cholelithiasis. 5. Mild left periaortic, left iliac chain, and left inguinal lymphadenopathy, similar to 07/02/2017. Electronically signed by: Kirstie Ayala MD (09/24/2021 4:37 PM) [id number]
[2021-09-24] MEDS ORDERED: ACETAMINOPHEN 325 MG TABLET. PO ONE (21:00)
[2021-09-25] VITALS (16 sets, daily range): BP systolic 99–153; BP diastolic 41–88
[2021-09-25] MEDS: PIPERACILLIN/TAZOBACTAM 3.375 GM in IV NORMAL SALINE 50ML 50 ML IV SCH ×4 (00:04→18:05)
[2021-09-25] MEDS: STERILE WATER for RESP 2,000 ML BAG. INH PRN (03:32)
[2021-09-25] MEDS: NOREPINEPHRINE VIAL 8 MG in IV DEXTROSE 5% 250 ML IV PRN (05:27)
--- NOTE | 2021-09-25 05:59 | NUR ---
Bipap down to 50%, Spo2 95%. Levo gtt reduced in rate by CONSUELO Barron. BP 111/45. Bed unable to weigh patient due to "max weight detected."
[2021-09-25] MEDS: INSULIN LISPRO 300 UNITS/3 ML VIAL. SQ SCH ×3 (09:10→18:08)
--- NOTE | 2021-09-25 10:06 | PDOC ---
IM PROGRESS NOTES- Subjective Subjective He is sleeping. Unable to do systems review. Objective Vitals/I&O Vital Signs Date Time Temp Pulse Resp B/P (MAP) Pulse Ox O2 Delivery O2 Flow Rate FiO2 09/25/21 08:16 35.0 09/25/21 07:51 95 vapotherm 09/25/21 06:00 74 18 99/41 09/25/21 05:30 98.3 98.3 I & O 09/24/21 09/24/21 09/25/21 15:00 23:00 07:00 Intake Total 1680 ml 720 ml 2268 ml Output Total 700 ml 625 ml 1150 ml Balance 980 ml 95 ml 1118 ml Physical Exam Physical Exam General Appearance -sleeping, obese, not in any acute distress. Chest - decreased breath sounds at bases Heart - S1 and S2 normal Abdomen - soft, non tender Neurological -sleeping Musculoskeletal - generalized weakness Extremities -2+ edema Anasarca. Labs Laboratory Tests Test 09/24/21 12:44 09/24/21 17:21 09/25/21 08:36 Glucose (Fingerstick) 211 mg/dL (70-99) H 208 mg/dL (70-99) H 198 mg/dL (70-99) H Meds Current Medications Medications (Trade) Dose Ordered Sig/Michelle Route PRN Reason Start Time Stop Time Status Last Admin Dose Admin Acetaminophen (Tylenol) 650 mg 1X ONCE PO 09/24/21 21:00 09/24/21 21:01 DC 09/24/21 20:13 Assessment Assessment Problems Medical Problems: (1) Acute on chronic respiratory failure with hypoxia and hypercapnia Status: Acute (2) Community acquired pneumonia Status: Acute FINAL IMPRESSION: 1. .Hypercapnic acute respiratory failure. 2. Pneumonia, rule out postobstructive pneumonia 3. Diastolic heart failure. 4. Diabetes. 5. Lactic acidosis. 6. Sepsis with multisystem failure. 7. Ac Renal failure PLAN: Of BIPAP , now on high flow oxygen 30 L. Low dose Levophed. Pneumonia wbc 28.5 on 09/24/21. Today's labs pending. on Dapto+zosyn cr 2.8 due to ATN Diabetes Mellitus. BS Around 200. SSI. DVT prevention o Lovenox. Broad-spectrum antibiotics, daptomycin and Zosyn. ID is consulted. Pulmonary is consulted for BiPAP and management. The patient was also seen by Renal. We will replace magnesium and phosphorus. Continue management in ICU. Prognosis of this patient is very poor due to his multiple medical problems. Plan Plan For more details regarding further plans, please refer to the orders. Justifications for Admission Other Justification FEMI SAMPSON MD Sep 25, 2021 10:06
[2021-09-25] MEDS: IV NORMAL SALINE 1000ML BAG 1,000 ML IV SCH (10:54)
[2021-09-25 11:41] LABS: BASO # 0.1 x10^3/uL (0.0-0.2); BASO % 0 % (0-3); EOS # 0.1 x10^3/uL (0.0-0.7); EOS % 0 % (0-3); HEMATOCRIT 40.8 % (39.0-53.0); HEMOGLOBIN 12.8 g/dL (13.0-17.5); LYMPH # 1.1 x10^3/uL (1.0-4.8); LYMPH % 7 % (24-48); MEAN CORPUSCULAR HEMOGLOBIN 27 pg (25-35); MEAN CORPUSCULAR HGB CONC 32 g/dL (31-37); MEAN CORPUSCULAR VOLUME 84 fL (79-100); MONO % 6 % (0-9); NEUT # 15.3 x10^3/uL (1.8-7.7); NEUT % 87 % (31-73); PLATELET COUNT 139 x10^3/uL (140-400); RED BLOOD COUNT 4.84 x10^6/uL (4.30-5.70); RED CELL DISTRIBUTION WIDTH 17.9 % (11.5-14.5); WHITE BLOOD COUNT 17.5 x10^3/uL (4.0-11.0)
[2021-09-25 11:45] LABS: CALCIUM 8.9 mg/dL (8.5-10.1); CREATININE 2.9 mg/dL (0.7-1.3); GFR 23.2; POTASSIUM 4.6 mmol/L (3.5-5.1)
--- NOTE | 2021-09-25 11:46 | PDOC ---
DATE OF SERVICE: DOS: DATE: 09/25/21 TIME: 11:43 SUBJECTIVE ROS Follow-up for acute kidney injury Patient claims he is feeling well. Denies any new complaints currently. Claims he ambulated and was not dizzy or lightheaded. Remains on high flow nasal cannula oxygen CVS: no Orthopnea, no CP RESP: no SOB, no LEHMAN: With supplemental oxygen on board GI: no Nausea, no Vomiting : no Dysuria, no Urgency OBJECTIVE Vital Signs Vital Signs Date Time Temp Pulse Resp B/P (MAP) Pulse Ox O2 Delivery O2 Flow Rate FiO2 09/25/21 11:23 93 vapotherm 35.0 09/25/21 06:00 74 18 99/41 09/25/21 05:30 98.3 98.3 I & 0 Intake and Output 09/25/21 07:00 Intake Total 4668 ml Output Total 2475 ml Balance 2193 ml Intake Oral 2880 ml Blood Product IV Normal Saline Flush 1788 ml Output Urine Total 2475 ml PHYSICAL EXAM Physical Exam GEN: Awake, Oriented x 3, In no distress, talking on the phone. Morbidly obese EYES: Vision Unchanged, Conjunctiva Normal EN: No EN Drainage, Mucous Membranes moist NECK: No visible JVD, or JVP, Supple, no palpable thyromegaly CVS: S1S2, unable to hear any murmur, No Gallop, No Rub, chronic lower edema RESP: No Rales, no rhonchi, no Acc. Muscle Use GI: BS + ve, NO Bruit, Non Tender, Non Distended, morbidly obese unable to palpate hepatosplenomegaly : No CVA tenderness, no suprapubic Tenderness DIAGNOSIS/ASSESSMENT Assessment & Plan Patient claims labs were drawn this morning, results not available for chemistries Acute kidney injury with positive fluid balance with good urine output. Await labs. Current fluid and E-lyte status does not necessitate emergent need for dialysis. Will re-evaluate for dialysis in the am Possible intravascular volume depletion: Gentle IV fluids as you are currently doing Possible underlying CKD stage IIIa in the past Hypercapnic as well as hypoxic respiratory failure: Pulmonology Discolored looking urine with possible hematuria: [place] in place. Will check UA Hyperphosphatemia: Check CPK COMMENT/RELEVANT DATA Meds Current Medications Medications (Trade) Dose Ordered Sig/Michelle Start Time Stop Time Status Last Admin Dose Admin Acetaminophen (Tylenol) 650 mg 1X ONCE 09/24/21 21:00 09/24/21 21:01 DC 09/24/21 20:13 650 MG Albuterol Sulfate (Ventolin Neb Soln) 2.5 mg PRN Q4HRS PRN 09/22/21 23:30 Albuterol/ Ipratropium (Duoneb) 3 ml 1X ONCE 09/22/21 22:30 09/22/21 22:31 DC 09/22/21 22:05 3 ML Ceftriaxone Sodium (Rocephin) 2 gm 1X ONCE 09/22/21 23:30 09/22/21 23:31 DC 09/23/21 00:11 2 GM Daptomycin 760 mg/ Sodium Chloride 50 ml @ 100 mls/hr Q24H 09/23/21 16:00 09/24/21 16:11 100 MLS/HR Dextrose (Dextrose 50%-Water Syringe) 12.5 gm PRN Q15MIN PRN 09/23/21 09:15 Doxycycline Hyclate 100 mg/ Dextrose 100 ml @ 50 mls/hr 1X ONCE 09/22/21 23:30 09/23/21 01:29 DC Enoxaparin Sodium (Lovenox 60mg Syringe) 60 mg Q12HR 09/23/21 09:00 09/25/21 09:10 60 MG Enoxaparin Sodium (Lovenox Per Pharmacy Prophylaxis Dosing) 1 each PRN DAILY PRN 09/23/21 09:00 Fentanyl Citrate (Fentanyl 2ml Vial) 50 mcg PRN Q1HR PRN 09/22/21 23:15 09/23/21 23:14 DC Insulin Human Lispro (HumaLOG) 0-5 UNITS TIDWMEALS 09/23/21 12:00 09/25/21 09:10 2 UNITS Magnesium Sulfate 50 ml @ 25 mls/hr 1X ONCE 09/23/21 16:00 09/23/21 17:59 DC 09/23/21 19:52 25 MLS/HR Magnesium Sulfate 3 gm/Dextrose 106 ml @ 35.333 mls/ hr 1X ONCE 09/23/21 15:45 09/23/21 18:44 UNV Magnesium Sulfate/ Dextrose 100 ml @ 100 mls/hr 1X ONCE 09/23/21 18:00 09/23/21 18:59 DC 09/23/21 16:36 100 MLS/HR Norepinephrine Bitartrate 8 mg/ Dextrose 258 ml @ 40.442 mls/ hr CONT PRN 09/23/21 01:45 09/25/21 05:27 40.442 MLS/HR Ondansetron HCl (Zofran) 4 mg PRN Q8HRS PRN 09/22/21 23:15 09/23/21 23:14 DC 09/23/21 22:55 4 MG Piperacillin Sod/ Tazobactam Sod (Zosyn Per Pharmacy) 1 each PRN DAILY PRN 09/23/21 08:45 Piperacillin Sod/ Tazobactam Sod 3.375 gm/Sodium Chloride 50 ml @ 100 mls/hr Q6HRS 09/23/21 09:00 09/25/21 05:43 100 MLS/HR Sodium Chloride 1,000 ml @ 75 mls/hr [id number] 09/23/21 02:15 09/25/21 10:54 75 MLS/HR Sterile Water (WATER for RESP) 2,000 ml CONT PRN 09/23/21 15:30 09/25/21 03:32 2,000 ML Lab Laboratory Tests Test 09/24/21 12:44 09/24/21 17:21 09/25/21 08:36 09/25/21 11:10 Glucose (Fingerstick) 211 mg/dL (70-99) 208 mg/dL (70-99) 198 mg/dL (70-99) White Blood Count 17.5 x10^3/uL (4.0-11.0) Red Blood Count 4.84 x10^6/uL (4.30-5.70) Hemoglobin 12.8 g/dL (13.0-17.5) Hematocrit 40.8 % (39.0-53.0) Mean Corpuscular Volume 84 fL (79-100) Mean Corpuscular Hemoglobin 27 pg (25-35) Mean Corpuscular Hemoglobin Concent 32 g/dL (31-37) Red Cell Distribution Width 17.9 % (11.5-14.5) Platelet Count 139 x10^3/uL (140-400) Neutrophils (%) (Auto) 87 % (31-73) Lymphocytes (%) (Auto) 7 % (24-48) Monocytes (%) (Auto) 6 % (0-9) Eosinophils (%) (Auto) 0 % (0-3) Basophils (%) (Auto) 0 % (0-3) Neutrophils # (Auto) 15.3 x10^3/uL (1.8-7.7) Lymphocytes # (Auto) 1.1 x10^3/uL (1.0-4.8) Monocytes # (Auto) 1.0 x10^3/uL (0.0-1.1) Eosinophils # (Auto) 0.1 x10^3/uL (0.0-0.7) Basophils # (Auto) 0.1 x10^3/uL (0.0-0.2) Results All relevant outside records, renal labs, imaging studies, telemetry/EKG's were reviewed. Other CT scan abdomen and pelvis done 09/24/2021 1. New complete consolidation of the right middle and lower lobes with volume loss, likely reflecting complete atelectasis. 2. New scattered opacities elsewhere the lungs could be due to atelectasis or pneumonia. 3. Hepatosplenomegaly. 4. Cholelithiasis. 5. Mild left periaortic, left iliac chain, and left inguinal lymphadenopathy, similar to 07/02/2017. Of note: Kidneys/Ureters/Bladder: Kidneys are normal in size. No nephrolithiasis or hydronephrosis. There is a 2.2 cm hypodense exophytic left renal lesion, likely a simple or minimally complicated cyst. The bladder is decompressed around a [place] catheter. Gas in the bladder may be related to instrumentation. Justicifation of Admission Dx: Justifications for Admission: Justification of Admission Dx: Yes GENNA WU MD Sep 25, 2021 11:46
[2021-09-25] MEDS ORDERED: MAGNESIUM SULFATE 2GM 50 ML IV PRN (12:00)
[2021-09-25] MEDS: ACETAMINOPHEN 325 MG TABLET. PO PRN ×2 (12:37→21:31)
--- NOTE | 2021-09-25 13:55 | PDOC ---
Infectious Disease Note Subjective: Subjective Pt resting quietly. Arousable Fever pattern improved On O2 by nasal cannula Denies any fever, nausea, vomiting, pain Vital Signs: Vital Signs Vital Signs Date Time Temp Pulse Resp B/P (MAP) Pulse Ox O2 Delivery O2 Flow Rate FiO2 09/25/21 12:22 Vapotherm 35.0 09/25/21 11:23 93 09/25/21 06:00 74 18 99/41 09/25/21 05:30 98.3 98.3 Physical Exam: PHYSICAL EXAM GENERAL: Alert, oriented gentleman, not in distress. VITAL SIGNS: Stable. The patient did have a T-max of 103.2. Currently, his temperature is normal, pulse 73, respirations 16, blood pressure 125/66. HEENT: Both pupils are round and reacting. No conjunctival lesion, no lesion in the mouth. NECK: Supple, no JVP, no lymphadenopathy. LUNGS: Clear. HEART: S1, S2, regular. ABDOMEN: Soft, nontender, no organomegaly. EXTREMITIES: No edema or cyanosis. Chronic changes present in the legs. NEUROLOGIC: The patient is alert, awake, and appropriate. No focal neurologic deficit. Medications: Inpatient Meds: Medications reviewed. Labs: Lab Laboratory Tests Test 09/24/21 17:21 09/25/21 08:36 09/25/21 11:10 Glucose (Fingerstick) 208 mg/dL (70-99) 198 mg/dL (70-99) White Blood Count 17.5 x10^3/uL (4.0-11.0) Red Blood Count 4.84 x10^6/uL (4.30-5.70) Hemoglobin 12.8 g/dL (13.0-17.5) Hematocrit 40.8 % (39.0-53.0) Mean Corpuscular Volume 84 fL (79-100) Mean Corpuscular Hemoglobin 27 pg (25-35) Mean Corpuscular Hemoglobin Concent 32 g/dL (31-37) Red Cell Distribution Width 17.9 % (11.5-14.5) Platelet Count 139 x10^3/uL (140-400) Neutrophils (%) (Auto) 87 % (31-73) Lymphocytes (%) (Auto) 7 % (24-48) Monocytes (%) (Auto) 6 % (0-9) Eosinophils (%) (Auto) 0 % (0-3) Basophils (%) (Auto) 0 % (0-3) Neutrophils # (Auto) 15.3 x10^3/uL (1.8-7.7) Lymphocytes # (Auto) 1.1 x10^3/uL (1.0-4.8) Monocytes # (Auto) 1.0 x10^3/uL (0.0-1.1) Eosinophils # (Auto) 0.1 x10^3/uL (0.0-0.7) Basophils # (Auto) 0.1 x10^3/uL (0.0-0.2) Sodium Level 131 mmol/L (136-145) Potassium Level 4.6 mmol/L (3.5-5.1) Chloride Level 95 mmol/L (98-107) Carbon Dioxide Level 32 mmol/L (21-32) Anion Gap 4 (6-14) Blood Urea Nitrogen 45 mg/dL (8-26) Creatinine 2.9 mg/dL (0.7-1.3) Estimated GFR (Cockcroft-Gault) 23.2 Glucose Level 215 mg/dL (70-99) Calcium Level 8.9 mg/dL (8.5-10.1) Creatine Kinase 20 U/L (39-308) Objective: Assessment: 1. Fever and chills. Improved 2. Leukocytosis. 3. Respiratory failure. 4. Circulatory failure. 5. Lactic acidosis. 6. Chronic obstructive pulmonary disease. 7. Morbid obesity. 8. History of right-sided heart failure. Plan: Plan of Care Continue daptomycin and Zosyn CK 20 CT Chest abdomen and pelvis results reviewed F/U labs and cultures Cont supportive care . KEN WU MD Sep 25, 2021 13:55
--- NOTE | 2021-09-25 14:03 | PDOC ---
PULMONARY PROGRESS NOTES DATE: 09/25/21 TIME: 14:01 Subjective Patient feels better, use noninvasive ventilation last evening Currently on oxygen supplementation with Vapotherm Vitals Vital Signs Date Time Temp Pulse Resp B/P (MAP) Pulse Ox O2 Delivery O2 Flow Rate FiO2 09/25/21 12:22 Vapotherm 35.0 09/25/21 11:23 93 09/25/21 06:00 74 18 99/41 09/25/21 05:30 98.3 98.3 ROS: No Chest Pain, No Abdominal Pain, No Increase Cough General: Lethargic HEENT: Other Lungs: Clear Cardiovascular: S1, S2 Abdomen: Soft, Non-tender, Other Neuro Exam: Alert Extremities: Other (Decrease edema) Skin: Warm Labs Laboratory Tests Test 09/23/21 16:33 09/24/21 04:00 09/24/21 08:04 09/24/21 12:44 Glucose (Fingerstick) 158 mg/dL (70-99) 202 mg/dL (70-99) 211 mg/dL (70-99) White Blood Count 28.5 x10^3/uL (4.0-11.0) Red Blood Count 5.07 x10^6/uL (4.30-5.70) Hemoglobin 13.5 g/dL (13.0-17.5) Hematocrit 42.7 % (39.0-53.0) Mean Corpuscular Volume 84 fL (79-100) Mean Corpuscular Hemoglobin 27 pg (25-35) Mean Corpuscular Hemoglobin Concent 32 g/dL (31-37) Red Cell Distribution Width 17.6 % (11.5-14.5) Platelet Count 168 x10^3/uL (140-400) Neutrophils (%) (Auto) 88 % (31-73) Lymphocytes (%) (Auto) 6 % (24-48) Monocytes (%) (Auto) 7 % (0-9) Eosinophils (%) (Auto) 0 % (0-3) Basophils (%) (Auto) 0 % (0-3) Neutrophils # (Auto) 24.9 x10^3/uL (1.8-7.7) Lymphocytes # (Auto) 1.6 x10^3/uL (1.0-4.8) Monocytes # (Auto) 1.9 x10^3/uL (0.0-1.1) Eosinophils # (Auto) 0.0 x10^3/uL (0.0-0.7) Basophils # (Auto) 0.0 x10^3/uL (0.0-0.2) Sodium Level 132 mmol/L (136-145) Potassium Level 4.6 mmol/L (3.5-5.1) Chloride Level 93 mmol/L (98-107) Carbon Dioxide Level 33 mmol/L (21-32) Anion Gap 6 (6-14) Blood Urea Nitrogen 42 mg/dL (8-26) Creatinine 2.8 mg/dL (0.7-1.3) Estimated GFR (Cockcroft-Gault) 24.2 Glucose Level 187 mg/dL (70-99) Calcium Level 8.3 mg/dL (8.5-10.1) Phosphorus Level 6.0 mg/dL (2.6-4.7) Magnesium Level 2.1 mg/dL (1.8-2.4) Creatine Kinase 71 U/L (39-308) Test 09/24/21 17:21 09/25/21 08:36 09/25/21 11:10 Glucose (Fingerstick) 208 mg/dL (70-99) 198 mg/dL (70-99) White Blood Count 17.5 x10^3/uL (4.0-11.0) Red Blood Count 4.84 x10^6/uL (4.30-5.70) Hemoglobin 12.8 g/dL (13.0-17.5) Hematocrit 40.8 % (39.0-53.0) Mean Corpuscular Volume 84 fL (79-100) Mean Corpuscular Hemoglobin 27 pg (25-35) Mean Corpuscular Hemoglobin Concent 32 g/dL (31-37) Red Cell Distribution Width 17.9 % (11.5-14.5) Platelet Count 139 x10^3/uL (140-400) Neutrophils (%) (Auto) 87 % (31-73) Lymphocytes (%) (Auto) 7 % (24-48) Monocytes (%) (Auto) 6 % (0-9) Eosinophils (%) (Auto) 0 % (0-3) Basophils (%) (Auto) 0 % (0-3) Neutrophils # (Auto) 15.3 x10^3/uL (1.8-7.7) Lymphocytes # (Auto) 1.1 x10^3/uL (1.0-4.8) Monocytes # (Auto) 1.0 x10^3/uL (0.0-1.1) Eosinophils # (Auto) 0.1 x10^3/uL (0.0-0.7) Basophils # (Auto) 0.1 x10^3/uL (0.0-0.2) Sodium Level 131 mmol/L (136-145) Potassium Level 4.6 mmol/L (3.5-5.1) Chloride Level 95 mmol/L (98-107) Carbon Dioxide Level 32 mmol/L (21-32) Anion Gap 4 (6-14) Blood Urea Nitrogen 45 mg/dL (8-26) Creatinine 2.9 mg/dL (0.7-1.3) Estimated GFR (Cockcroft-Gault) 23.2 Glucose Level 215 mg/dL (70-99) Calcium Level 8.9 mg/dL (8.5-10.1) Creatine Kinase 20 U/L (39-308) Laboratory Tests Test 09/24/21 17:21 09/25/21 08:36 09/25/21 11:10 Glucose (Fingerstick) 208 mg/dL (70-99) 198 mg/dL (70-99) White Blood Count 17.5 x10^3/uL (4.0-11.0) Red Blood Count 4.84 x10^6/uL (4.30-5.70) Hemoglobin 12.8 g/dL (13.0-17.5) Hematocrit 40.8 % (39.0-53.0) Mean Corpuscular Volume 84 fL (79-100) Mean Corpuscular Hemoglobin 27 pg (25-35) Mean Corpuscular Hemoglobin Concent 32 g/dL (31-37) Red Cell Distribution Width 17.9 % (11.5-14.5) Platelet Count 139 x10^3/uL (140-400) Neutrophils (%) (Auto) 87 % (31-73) Lymphocytes (%) (Auto) 7 % (24-48) Monocytes (%) (Auto) 6 % (0-9) Eosinophils (%) (Auto) 0 % (0-3) Basophils (%) (Auto) 0 % (0-3) Neutrophils # (Auto) 15.3 x10^3/uL (1.8-7.7) Lymphocytes # (Auto) 1.1 x10^3/uL (1.0-4.8) Monocytes # (Auto) 1.0 x10^3/uL (0.0-1.1) Eosinophils # (Auto) 0.1 x10^3/uL (0.0-0.7) Basophils # (Auto) 0.1 x10^3/uL (0.0-0.2) Sodium Level 131 mmol/L (136-145) Potassium Level 4.6 mmol/L (3.5-5.1) Chloride Level 95 mmol/L (98-107) Carbon Dioxide Level 32 mmol/L (21-32) Anion Gap 4 (6-14) Blood Urea Nitrogen 45 mg/dL (8-26) Creatinine 2.9 mg/dL (0.7-1.3) Estimated GFR (Cockcroft-Gault) 23.2 Glucose Level 215 mg/dL (70-99) Calcium Level 8.9 mg/dL (8.5-10.1) Creatine Kinase 20 U/L (39-308) Medications Active Scripts Medications Dose Route/Sig Max Daily Dose Days Date Category [Albuterol] 09/23/21 Reported Jardiance (Empagliflozin) 25 Mg Tablet 1 Tab PO DAILY 09/23/21 Reported Benzonatate 200 Mg Capsule 1 Cap PO PRN TID PRN 08/19/21 Rx Ventolin Hfa Inhaler (Albuterol Sulfate) 18 Gm Hfa.aer.ad 2 Puff INH Q4HRS 08/19/21 Rx Doxycycline Hyclate 100 Mg Capsule 1 Cap PO BID 7 08/19/21 Rx Bumetanide 2 Mg Tablet 2 Mg PO BID 30 02/04/20 Rx Aspirin Ec (Aspirin) 325 Mg Tablet.dr 325 Mg PO DAILYWBKFT 30 02/04/20 Rx [Fluconazole] 100 MG Tablet 400 Mg PO DAILY 10 08/19/19 Rx Hydralazine Hcl 50 Mg Tablet 50 Mg PO TID 90 08/19/19 Rx K-Tab ER (Potassium Chloride) 20 Meq Tablet.er 20 Meq PO BID 30 08/19/19 Rx One-A-Day Essential (Multivitamin) 1 Each Tablet 1 Tab PO DAILY 30 08/15/19 Reported Metformin Hcl 500 Mg Tablet 2 Tab PO BIDWMEALS 08/15/19 Reported Carvedilol (Carvedilol) 12.5 Mg Tablet 2 Tab PO BIDWMEALS 08/15/19 Reported Lisinopril 20 Mg Tablet 1 Tab PO DAILY 08/15/19 Reported Impression . IMPRESSION: 1. Acute on chronic hypoxemic hypercapnic respiratory failure. 2. Sepsis. 3. Fever related to the above. 4. Marked leukocytosis. 5. Morbid obesity. 6. Acute on chronic renal insufficiency. 7. Lactic acidosis. 8. Protein malnutrition present upon admission. 9. Rapid test for SARS-CoV-2 negative. Plan . Updated 09/25 ID consulted currently on daptomycin and Zosyn CT abdomen and chest reviewed, some basilar infiltrates consolidation. Right middle lobe is completely consolidated There is evidence of hepatosplenomegaly cholelithiasis Continue as needed nebulized treatments As needed BiPAP Cultures so far negative Once off of norepinephrine may start sitting patient up in the chair Critical care time of 30 minutes updated 09/24 White count 28,000 ABG better from yesterday PCR negative Follow ID input As needed BiPAP Bronchodilators Follow nephrology input Total cumulative critical care time of 30 minutes DAVID URBINA MD Sep 25, 2021 14:03
[2021-09-25] MEDS: DAPTOmycin (GENERIC) IVPB 760 MG in IV NORMAL SALINE 50ML 50 ML IV SCH (16:42)
[2021-09-25] MEDS: LINEZOLID 600 MG TABLET PO SCH (18:05)
[2021-09-26] VITALS (24 sets, daily range): BP systolic 113–173; BP diastolic 57–98
[2021-09-26] MEDS: PIPERACILLIN/TAZOBACTAM 3.375 GM in IV NORMAL SALINE 50ML 50 ML IV SCH ×6 (00:09→23:54)
[2021-09-26] MEDS: IV NORMAL SALINE 1000ML BAG 1,000 ML IV SCH ×2 (04:32→13:34)
[2021-09-26 05:03] LABS: BASO % 0 % (0-3); EOS # 0.1 x10^3/uL (0.0-0.7); EOS % 1 % (0-3); HEMATOCRIT 39.4 % (39.0-53.0); HEMOGLOBIN 12.5 g/dL (13.0-17.5); LYMPH # 1.1 x10^3/uL (1.0-4.8); LYMPH % 10 % (24-48); MEAN CORPUSCULAR HEMOGLOBIN 27 pg (25-35); MEAN CORPUSCULAR HGB CONC 32 g/dL (31-37); MEAN CORPUSCULAR VOLUME 84 fL (79-100); MONO # 0.8 x10^3/uL (0.0-1.1); MONO % 7 % (0-9); NEUT # 8.9 x10^3/uL (1.8-7.7); NEUT % 81 % (31-73); PLATELET COUNT 123 x10^3/uL (140-400); RED BLOOD COUNT 4.69 x10^6/uL (4.30-5.70); RED CELL DISTRIBUTION WIDTH 17.6 % (11.5-14.5)
[2021-09-26 05:27] LABS: CALCIUM 8.7 mg/dL (8.5-10.1); CREATININE 2.7 mg/dL (0.7-1.3); GFR 25.2; PHOSPHORUS 4.1 mg/dL (2.6-4.7); POTASSIUM 4.3 mmol/L (3.5-5.1)
--- NOTE | 2021-09-26 06:18 | NUR ---
Attempted to obtain patient's weight, noted "max weight detected, reposition", did let head of the bed down, continued with same reading.
[2021-09-26] MEDS: INSULIN LISPRO 300 UNITS/3 ML VIAL. SQ SCH ×3 (08:00→17:00)
--- NOTE | 2021-09-26 08:47 | PDOC ---
DATE OF SERVICE: DOS: DATE: 09/26/21 TIME: 08:43 SUBJECTIVE ROS Follow-up for ADINA Patient claims he is doing much better today. Denies any new complaints. Remains on Vapotherm CVS: no Orthopnea, no CP RESP: no SOB, no LEHMAN GI: no Nausea, no Vomiting : no Dysuria, no Urgency OBJECTIVE Vital Signs Vital Signs Date Time Temp Pulse Resp B/P (MAP) Pulse Ox O2 Delivery O2 Flow Rate FiO2 09/26/21 08:14 97 vapotherm 30.0 09/26/21 06:11 98 13 145/75 (98) 09/26/21 03:00 98.8 98.8 I & 0 Intake and Output 09/26/21 07:00 Intake Total 1400 ml Output Total 3975 ml Balance -2575 ml Intake Oral 300 ml IV Total 1100 ml Output Urine Total 3975 ml PHYSICAL EXAM Physical Exam GEN: Awake, Oriented x 3, In no distress, talking on the phone. Morbidly obese EYES: Vision Unchanged, Conjunctiva Normal EN: No EN Drainage, Mucous Membranes moist NECK: No visible JVD, or JVP, Supple, no palpable thyromegaly CVS: S1S2, unable to hear any murmur, No Gallop, No Rub, chronic lower edema RESP: No Rales, no rhonchi, no Acc. Muscle Use GI: BS + ve, NO Bruit, Non Tender, Non Distended, morbidly obese unable to palpate hepatosplenomegaly : No CVA tenderness, no suprapubic Tenderness DIAGNOSIS/ASSESSMENT Assessment & Plan Acute kidney injury: Creatinine improving despite negative fluid balance over the last 24 hours with good urine output. CPK normal. Current fluid and E-lyte status does not necessitate emergent need for dialysis. Will re-evaluate for dialysis in the am Possible intravascular volume depletion: Gentle IV fluids as you are currently doing as long as it does not worsen respiratory status Possible underlying CKD stage IIIa in the past Hypercapnic as well as hypoxic respiratory failure: Pulmonology managing. No recent ABGs Discolored looking urine with possible hematuria: Much clearer today. [place] in place. Will check UA Hyperphosphatemia: Now normalized COMMENT/RELEVANT DATA Meds Current Medications Medications (Trade) Dose Ordered Sig/Michelle Start Time Stop Time Status Last Admin Dose Admin Acetaminophen (Tylenol) 650 mg PRN Q6HRS PRN 09/25/21 12:30 09/25/21 21:31 650 MG Albuterol Sulfate (Ventolin Neb Soln) 2.5 mg PRN Q4HRS PRN 09/22/21 23:30 Albuterol/ Ipratropium (Duoneb) 3 ml 1X ONCE 09/22/21 22:30 09/22/21 22:31 DC 09/22/21 22:05 3 ML Ceftriaxone Sodium (Rocephin) 2 gm 1X ONCE 09/22/21 23:30 09/22/21 23:31 DC 09/23/21 00:11 2 GM Daptomycin 760 mg/ Sodium Chloride 50 ml @ 100 mls/hr Q24H 09/23/21 16:00 09/25/21 16:42 100 MLS/HR Dextrose (Dextrose 50%-Water Syringe) 12.5 gm PRN Q15MIN PRN 09/23/21 09:15 Doxycycline Hyclate 100 mg/ Dextrose 100 ml @ 50 mls/hr 1X ONCE 09/22/21 23:30 09/23/21 01:29 DC Enoxaparin Sodium (Lovenox 60mg Syringe) 60 mg Q12HR 09/23/21 09:00 09/25/21 21:31 60 MG Enoxaparin Sodium (Lovenox Per Pharmacy Prophylaxis Dosing) 1 each PRN DAILY PRN 09/23/21 09:00 Fentanyl Citrate (Fentanyl 2ml Vial) 50 mcg PRN Q1HR PRN 09/22/21 23:15 09/23/21 23:14 DC Insulin Human Lispro (HumaLOG) 0-5 UNITS TIDWMEALS 09/23/21 12:00 09/25/21 18:08 3 UNITS Linezolid (Zyvox) 600 mg BID 09/25/21 18:00 09/25/21 18:05 600 MG Magnesium Sulfate 50 ml @ 25 mls/hr PRN DAILY PRN 09/25/21 12:00 Magnesium Sulfate 3 gm/Dextrose 106 ml @ 35.333 mls/ hr 1X ONCE 09/23/21 15:45 09/23/21 18:44 UNV Magnesium Sulfate/ Dextrose 100 ml @ 100 mls/hr 1X ONCE 09/23/21 18:00 09/23/21 18:59 DC 09/23/21 16:36 100 MLS/HR Norepinephrine Bitartrate 8 mg/ Dextrose 258 ml @ 40.442 mls/ hr CONT PRN 09/23/21 01:45 09/25/21 05:27 40.442 MLS/HR Ondansetron HCl (Zofran) 4 mg PRN Q8HRS PRN 09/22/21 23:15 09/23/21 23:14 DC 09/23/21 22:55 4 MG Piperacillin Sod/ Tazobactam Sod (Zosyn Per Pharmacy) 1 each PRN DAILY PRN 09/23/21 08:45 Piperacillin Sod/ Tazobactam Sod 3.375 gm/Sodium Chloride 50 ml @ 100 mls/hr Q6HRS 09/23/21 09:00 09/26/21 06:15 100 MLS/HR Sodium Chloride 1,000 ml @ 75 mls/hr [id number] 09/23/21 02:15 09/26/21 04:32 75 MLS/HR Sterile Water (WATER for RESP) 2,000 ml CONT PRN 09/23/21 15:30 09/25/21 03:32 2,000 ML Lab Laboratory Tests Test 09/25/21 11:10 09/25/21 17:39 09/26/21 04:30 White Blood Count 17.5 x10^3/uL (4.0-11.0) 11.0 x10^3/uL (4.0-11.0) Red Blood Count 4.84 x10^6/uL (4.30-5.70) 4.69 x10^6/uL (4.30-5.70) Hemoglobin 12.8 g/dL (13.0-17.5) 12.5 g/dL (13.0-17.5) Hematocrit 40.8 % (39.0-53.0) 39.4 % (39.0-53.0) Mean Corpuscular Volume 84 fL (79-100) 84 fL (79-100) Mean Corpuscular Hemoglobin 27 pg (25-35) 27 pg (25-35) Mean Corpuscular Hemoglobin Concent 32 g/dL (31-37) 32 g/dL (31-37) Red Cell Distribution Width 17.9 % (11.5-14.5) 17.6 % (11.5-14.5) Platelet Count 139 x10^3/uL (140-400) 123 x10^3/uL (140-400) Neutrophils (%) (Auto) 87 % (31-73) 81 % (31-73) Lymphocytes (%) (Auto) 7 % (24-48) 10 % (24-48) Monocytes (%) (Auto) 6 % (0-9) 7 % (0-9) Eosinophils (%) (Auto) 0 % (0-3) 1 % (0-3) Basophils (%) (Auto) 0 % (0-3) 0 % (0-3) Neutrophils # (Auto) 15.3 x10^3/uL (1.8-7.7) 8.9 x10^3/uL (1.8-7.7) Lymphocytes # (Auto) 1.1 x10^3/uL (1.0-4.8) 1.1 x10^3/uL (1.0-4.8) Monocytes # (Auto) 1.0 x10^3/uL (0.0-1.1) 0.8 x10^3/uL (0.0-1.1) Eosinophils # (Auto) 0.1 x10^3/uL (0.0-0.7) 0.1 x10^3/uL (0.0-0.7) Basophils # (Auto) 0.1 x10^3/uL (0.0-0.2) 0.0 x10^3/uL (0.0-0.2) Sodium Level 131 mmol/L (136-145) 133 mmol/L (136-145) Potassium Level 4.6 mmol/L (3.5-5.1) 4.3 mmol/L (3.5-5.1) Chloride Level 95 mmol/L (98-107) 97 mmol/L (98-107) Carbon Dioxide Level 32 mmol/L (21-32) 33 mmol/L (21-32) Anion Gap 4 (6-14) 3 (6-14) Blood Urea Nitrogen 45 mg/dL (8-26) 44 mg/dL (8-26) Creatinine 2.9 mg/dL (0.7-1.3) 2.7 mg/dL (0.7-1.3) Estimated GFR (Cockcroft-Gault) 23.2 25.2 Glucose Level 215 mg/dL (70-99) 148 mg/dL (70-99) Calcium Level 8.9 mg/dL (8.5-10.1) 8.7 mg/dL (8.5-10.1) Creatine Kinase 20 U/L (39-308) Glucose (Fingerstick) 208 mg/dL (70-99) Phosphorus Level 4.1 mg/dL (2.6-4.7) Magnesium Level 2.5 mg/dL (1.8-2.4) Albumin 2.0 g/dL (3.4-5.0) Results All relevant outside records, renal labs, imaging studies, telemetry/EKG's were reviewed. Justicifation of Admission Dx: Justifications for Admission: Justification of Admission Dx: Yes GENNA WU MD Sep 26, 2021 08:47
[2021-09-26] MEDS: LINEZOLID 600 MG TABLET PO SCH ×2 (11:11→20:49)
--- NOTE | 2021-09-26 11:31 | PDOC ---
Infectious Disease Note Subjective: Subjective Patient feels better Fever pattern improved Denies any fever, nausea, vomiting, pain Vital Signs: Vital Signs Vital Signs Date Time Temp Pulse Resp B/P (MAP) Pulse Ox O2 Delivery O2 Flow Rate FiO2 09/26/21 09:46 96 30.0 09/26/21 09:32 vapotherm 09/26/21 09:00 98 19 138/73 (94) 09/26/21 07:00 98.9 98.9 Physical Exam: PHYSICAL EXAM GENERAL: Alert, oriented gentleman, not in distress. VITAL SIGNS: Stable. The patient did have a T-max of 103.2. Currently, his temperature is normal, pulse 73, respirations 16, blood pressure 125/66. HEENT: Both pupils are round and reacting. No conjunctival lesion, no lesion in the mouth. NECK: Supple, no JVP, no lymphadenopathy. LUNGS: Clear. HEART: S1, S2, regular. ABDOMEN: Soft, nontender, no organomegaly. EXTREMITIES: No edema or cyanosis. Chronic changes present in the legs. NEUROLOGIC: The patient is alert, awake, and appropriate. No focal neurologic deficit. Medications: Inpatient Meds: Medications reviewed. Labs: Lab Laboratory Tests Test 09/25/21 17:39 09/26/21 04:30 09/26/21 09:06 Glucose (Fingerstick) 208 mg/dL (70-99) 134 mg/dL (70-99) White Blood Count 11.0 x10^3/uL (4.0-11.0) Red Blood Count 4.69 x10^6/uL (4.30-5.70) Hemoglobin 12.5 g/dL (13.0-17.5) Hematocrit 39.4 % (39.0-53.0) Mean Corpuscular Volume 84 fL (79-100) Mean Corpuscular Hemoglobin 27 pg (25-35) Mean Corpuscular Hemoglobin Concent 32 g/dL (31-37) Red Cell Distribution Width 17.6 % (11.5-14.5) Platelet Count 123 x10^3/uL (140-400) Neutrophils (%) (Auto) 81 % (31-73) Lymphocytes (%) (Auto) 10 % (24-48) Monocytes (%) (Auto) 7 % (0-9) Eosinophils (%) (Auto) 1 % (0-3) Basophils (%) (Auto) 0 % (0-3) Neutrophils # (Auto) 8.9 x10^3/uL (1.8-7.7) Lymphocytes # (Auto) 1.1 x10^3/uL (1.0-4.8) Monocytes # (Auto) 0.8 x10^3/uL (0.0-1.1) Eosinophils # (Auto) 0.1 x10^3/uL (0.0-0.7) Basophils # (Auto) 0.0 x10^3/uL (0.0-0.2) Sodium Level 133 mmol/L (136-145) Potassium Level 4.3 mmol/L (3.5-5.1) Chloride Level 97 mmol/L (98-107) Carbon Dioxide Level 33 mmol/L (21-32) Anion Gap 3 (6-14) Blood Urea Nitrogen 44 mg/dL (8-26) Creatinine 2.7 mg/dL (0.7-1.3) Estimated GFR (Cockcroft-Gault) 25.2 Glucose Level 148 mg/dL (70-99) Calcium Level 8.7 mg/dL (8.5-10.1) Phosphorus Level 4.1 mg/dL (2.6-4.7) Magnesium Level 2.5 mg/dL (1.8-2.4) Albumin 2.0 g/dL (3.4-5.0) Objective: Assessment: 1. Fever and chills. Improved 2. Leukocytosis. 3. Respiratory failure. 4. Circulatory failure. 5. Lactic acidosis. 6. Chronic obstructive pulmonary disease. 7. Morbid obesity. 8. History of right-sided heart failure. Plan: Plan of Care Continue Zosyn and zyvox DC daptomycin CT Chest abdomen and pelvis results reviewed F/U labs and cultures Cont supportive care . Discussed with KEN HAM MD Sep 26, 2021 11:31
--- NOTE | 2021-09-26 11:43 | PDOC ---
PROGRESS NOTES Date of Service: DATE: 09/26/21 TIME: 11:39 Subjective Subjective seen in ICU , on high flow oxygen Objective Objective Vital Signs Date Time Temp Pulse Resp B/P (MAP) Pulse Ox O2 Delivery O2 Flow Rate FiO2 09/26/21 11:33 95 vapotherm 30.0 09/26/21 09:00 98 19 138/73 (94) 09/26/21 07:00 98.9 98.9 Intake and Output 09/26/21 07:00 Intake Total 1400 ml Output Total 3975 ml Balance -2575 ml Intake Oral 300 ml IV Total 1100 ml Output Urine Total 3975 ml Physical Exam Abdomen: Soft Heart: Regular rate, Normal S1 Extremities: Other (lympedema ) General: Oriented X3 HEENT: PERRLA Lungs: Normal air movement MUSCULOSKELETAL: Osteoarthritic changes both hands Neuro: Normal speech Psych/Mental Status: Mental status NL Skin: No breakdown COMMENT domenico present Diagnosis Problem List Problems Medical Problems: (1) Acute on chronic respiratory failure with hypoxia and hypercapnia Status: Acute (2) Community acquired pneumonia Status: Acute Assessment Assessment Problems Medical Problems: (1) Acute on chronic respiratory failure with hypoxia and hypercapnia Status: Acute (2) Community acquired pneumonia Status: Acute FINAL IMPRESSION: 1. .Hypercapnic acute respiratory failure. 2. Pneumonia, rule out postobstructive pneumonia 3. Diastolic heart failure. 4. Diabetes. 5. Lactic acidosis. 6. Sepsis with multisystem failure. 7. Ac Renal failure PLAN: ct scan rt middle and lower lobe Pneumonia with atelactasis Off BIPAP , now on high flow oxygen 30 L. Low dose Levophed. Pneumonia wbc 28.5 trending down to 10. on Dapto+zosyn cr 2.8 due to ATN,vr 2.7 same Diabetes Mellitus. BS Around 200. SSI. DVT prevention o Lovenox. c/s neg so far. domenico for accurate i/o . Plan Plan of Care Problems Medical Problems: (1) Acute on chronic respiratory failure with hypoxia and hypercapnia Status: Acute (2) Community acquired pneumonia Status: Acute Comment Review of Relevant I have reviewed the following items adolfo (where applicable) has been applied. Labs Laboratory Tests Test 09/25/21 17:39 09/26/21 04:30 09/26/21 09:06 Glucose (Fingerstick) 208 mg/dL (70-99) 134 mg/dL (70-99) White Blood Count 11.0 x10^3/uL (4.0-11.0) Red Blood Count 4.69 x10^6/uL (4.30-5.70) Hemoglobin 12.5 g/dL (13.0-17.5) Hematocrit 39.4 % (39.0-53.0) Mean Corpuscular Volume 84 fL (79-100) Mean Corpuscular Hemoglobin 27 pg (25-35) Mean Corpuscular Hemoglobin Concent 32 g/dL (31-37) Red Cell Distribution Width 17.6 % (11.5-14.5) Platelet Count 123 x10^3/uL (140-400) Neutrophils (%) (Auto) 81 % (31-73) Lymphocytes (%) (Auto) 10 % (24-48) Monocytes (%) (Auto) 7 % (0-9) Eosinophils (%) (Auto) 1 % (0-3) Basophils (%) (Auto) 0 % (0-3) Neutrophils # (Auto) 8.9 x10^3/uL (1.8-7.7) Lymphocytes # (Auto) 1.1 x10^3/uL (1.0-4.8) Monocytes # (Auto) 0.8 x10^3/uL (0.0-1.1) Eosinophils # (Auto) 0.1 x10^3/uL (0.0-0.7) Basophils # (Auto) 0.0 x10^3/uL (0.0-0.2) Sodium Level 133 mmol/L (136-145) Potassium Level 4.3 mmol/L (3.5-5.1) Chloride Level 97 mmol/L (98-107) Carbon Dioxide Level 33 mmol/L (21-32) Anion Gap 3 (6-14) Blood Urea Nitrogen 44 mg/dL (8-26) Creatinine 2.7 mg/dL (0.7-1.3) Estimated GFR (Cockcroft-Gault) 25.2 Glucose Level 148 mg/dL (70-99) Calcium Level 8.7 mg/dL (8.5-10.1) Phosphorus Level 4.1 mg/dL (2.6-4.7) Magnesium Level 2.5 mg/dL (1.8-2.4) Albumin 2.0 g/dL (3.4-5.0) Microbiology 09/23/21 Urine Culture - Final, Complete 09/22/21 Blood Culture - Preliminary, Resulted NO GROWTH AFTER 3 DAYS Medications Current Medications Acetaminophen (Tylenol) 650 mg PRN Q6HRS PRN PO MILD PAIN / TEMP > 100.3'F Last administered on 09/25/21at 21:31; Start 09/25/21 at 12:30 Linezolid (Zyvox) 600 mg BID PO Last administered on 09/26/21at 11:11; Start 09/25/21 at 18:00 Magnesium Sulfate 50 ml @ 25 mls/hr PRN DAILY PRN IV for Mag < 1.7 on am labs; Start 09/25/21 at 12:00 Vitals/I & O Vital Sign - Last 24 Hours 09/25/21 09/25/21 09/25/21 09/25/21 12:05 12:22 14:17 15:22 Temp 98.7 98.6 98.7 98.6 Pulse 100 99 Resp 22 18 B/P (MAP) 124/47 (72) 142/68 (92) Pulse Ox 93 93 O2 Delivery Vapotherm vapotherm O2 Flow Rate 35.0 35.0 35.0 35.0 09/25/21 09/25/21 09/25/21 09/25/21 15:56 16:15 16:15 16:17 Temp 98.6 98.6 Pulse 89 Resp 22 B/P (MAP) 153/74 (100) Pulse Ox 94 94 O2 Delivery vapotherm Vapotherm vapotherm O2 Flow Rate 35.0 35.0 35.0 35.0 09/25/21 09/25/21 09/25/21 09/25/21 17:10 18:28 20:00 20:00 Temp 98.8 98.5 98.8 98.5 Pulse 84 100 Resp 19 26 B/P (MAP) 116/56 (76) 144/76 (98) Pulse Ox 94 94 95 O2 Delivery vapotherm vapotherm O2 Flow Rate 35.0 35.0 35.0 35.0 09/25/21 09/25/21 09/25/21 09/25/21 20:04 20:07 21:00 22:00 Temp 98.7 98.7 98.7 98.7 Pulse 102 Resp 20 22 B/P (MAP) 108/51 (70) 141/88 (105) Pulse Ox 98 96 93 O2 Delivery vapotherm Vapotherm vapotherm BiPAP/CPAP O2 Flow Rate 97.0 97.0 09/25/21 09/26/21 09/26/21 09/26/21 23:00 00:00 00:00 00:00 Pulse 102 Resp 23 B/P (MAP) 125/65 (85) Pulse Ox 96 92 O2 Delivery BiPAP/CPAP BiPAP/CPAP Bi-pap O2 Flow Rate 97.0 09/26/21 09/26/21 09/26/21 09/26/21 00:00 01:00 02:00 02:00 Temp 98.3 98.3 Pulse 98 96 96 Resp 20 16 18 B/P (MAP) 134/64 (87) 125/72 (89) 122/68 (86) Pulse Ox 93 94 95 93 O2 Delivery BiPAP/CPAP BiPAP/CPAP BiPAP/CPAP BiPAP/CPAP 09/26/21 09/26/21 09/26/21 09/26/21 03:00 03:45 04:00 04:00 Temp 98.8 98.8 Pulse 18 96 Resp 18 17 B/P (MAP) 115/57 (76) 136/73 (94) Pulse Ox 95 95 95 O2 Delivery BiPAP/CPAP Bi-pap BiPAP/CPAP BiPAP/CPAP 09/26/21 09/26/21 09/26/21 09/26/21 04:00 05:00 06:11 07:00 Temp 98.9 98.9 Pulse 94 98 96 Resp 26 13 15 B/P (MAP) 127/66 (86) 145/75 (98) 113/67 (82) Pulse Ox 99 98 96 O2 Delivery BiPAP/CPAP BiPAP/CPAP Vapotherm O2 Flow Rate 97.0 30.0 09/26/21 09/26/21 09/26/21 09/26/21 07:47 08:00 08:00 08:14 Pulse 95 Resp 18 B/P (MAP) 131/72 (91) Pulse Ox 97 95 97 O2 Delivery BiPAP/CPAP Vapotherm Vapotherm vapotherm O2 Flow Rate 30.0 30.0 30.0 09/26/21 09/26/21 09/26/21 09/26/21 09:00 09:32 09:46 11:33 Pulse 98 Resp 19 B/P (MAP) 138/73 (94) Pulse Ox 100 85 96 95 O2 Delivery Vapotherm vapotherm vapotherm O2 Flow Rate 30.0 30.0 30.0 30.0 Intake and Output 09/25/21 09/25/21 09/26/21 15:00 23:00 07:00 Intake Total 150 ml 1250 ml Output Total 1750 ml 1100 ml 1125 ml Balance -1750 ml -950 ml 125 ml Justifications for Admission Other Justification ANT LICEA MD Sep 26, 2021 11:43
--- NOTE | 2021-09-26 11:45 | PDOC ---
PULMONARY PROGRESS NOTES DATE: 09/26/21 TIME: 11:43 Subjective Patient with no new complaints Not tolerating being titrated off of Vapotherm BiPAP as needed and nightly patient feels better, use noninvasive ventilation last evening Currently on oxygen supplementation with Vapotherm Vitals Vital Signs Date Time Temp Pulse Resp B/P (MAP) Pulse Ox O2 Delivery O2 Flow Rate FiO2 09/26/21 11:33 95 vapotherm 30.0 09/26/21 09:00 98 19 138/73 (94) 09/26/21 07:00 98.9 98.9 ROS: No Nausea, No Chest Pain, No Abdominal Pain, No Increase Cough General: Lethargic HEENT: Other Lungs: Clear Cardiovascular: S1, S2 Abdomen: Soft, Non-tender, Other Neuro Exam: Alert Extremities: Other (Decrease edema) Skin: Warm Labs Laboratory Tests Test 09/24/21 12:44 09/24/21 17:21 09/25/21 08:36 09/25/21 11:10 Glucose (Fingerstick) 211 mg/dL (70-99) 208 mg/dL (70-99) 198 mg/dL (70-99) White Blood Count 17.5 x10^3/uL (4.0-11.0) Red Blood Count 4.84 x10^6/uL (4.30-5.70) Hemoglobin 12.8 g/dL (13.0-17.5) Hematocrit 40.8 % (39.0-53.0) Mean Corpuscular Volume 84 fL (79-100) Mean Corpuscular Hemoglobin 27 pg (25-35) Mean Corpuscular Hemoglobin Concent 32 g/dL (31-37) Red Cell Distribution Width 17.9 % (11.5-14.5) Platelet Count 139 x10^3/uL (140-400) Neutrophils (%) (Auto) 87 % (31-73) Lymphocytes (%) (Auto) 7 % (24-48) Monocytes (%) (Auto) 6 % (0-9) Eosinophils (%) (Auto) 0 % (0-3) Basophils (%) (Auto) 0 % (0-3) Neutrophils # (Auto) 15.3 x10^3/uL (1.8-7.7) Lymphocytes # (Auto) 1.1 x10^3/uL (1.0-4.8) Monocytes # (Auto) 1.0 x10^3/uL (0.0-1.1) Eosinophils # (Auto) 0.1 x10^3/uL (0.0-0.7) Basophils # (Auto) 0.1 x10^3/uL (0.0-0.2) Sodium Level 131 mmol/L (136-145) Potassium Level 4.6 mmol/L (3.5-5.1) Chloride Level 95 mmol/L (98-107) Carbon Dioxide Level 32 mmol/L (21-32) Anion Gap 4 (6-14) Blood Urea Nitrogen 45 mg/dL (8-26) Creatinine 2.9 mg/dL (0.7-1.3) Estimated GFR (Cockcroft-Gault) 23.2 Glucose Level 215 mg/dL (70-99) Calcium Level 8.9 mg/dL (8.5-10.1) Creatine Kinase 20 U/L (39-308) Test 09/25/21 17:39 09/26/21 04:30 09/26/21 09:06 Glucose (Fingerstick) 208 mg/dL (70-99) 134 mg/dL (70-99) White Blood Count 11.0 x10^3/uL (4.0-11.0) Red Blood Count 4.69 x10^6/uL (4.30-5.70) Hemoglobin 12.5 g/dL (13.0-17.5) Hematocrit 39.4 % (39.0-53.0) Mean Corpuscular Volume 84 fL (79-100) Mean Corpuscular Hemoglobin 27 pg (25-35) Mean Corpuscular Hemoglobin Concent 32 g/dL (31-37) Red Cell Distribution Width 17.6 % (11.5-14.5) Platelet Count 123 x10^3/uL (140-400) Neutrophils (%) (Auto) 81 % (31-73) Lymphocytes (%) (Auto) 10 % (24-48) Monocytes (%) (Auto) 7 % (0-9) Eosinophils (%) (Auto) 1 % (0-3) Basophils (%) (Auto) 0 % (0-3) Neutrophils # (Auto) 8.9 x10^3/uL (1.8-7.7) Lymphocytes # (Auto) 1.1 x10^3/uL (1.0-4.8) Monocytes # (Auto) 0.8 x10^3/uL (0.0-1.1) Eosinophils # (Auto) 0.1 x10^3/uL (0.0-0.7) Basophils # (Auto) 0.0 x10^3/uL (0.0-0.2) Sodium Level 133 mmol/L (136-145) Potassium Level 4.3 mmol/L (3.5-5.1) Chloride Level 97 mmol/L (98-107) Carbon Dioxide Level 33 mmol/L (21-32) Anion Gap 3 (6-14) Blood Urea Nitrogen 44 mg/dL (8-26) Creatinine 2.7 mg/dL (0.7-1.3) Estimated GFR (Cockcroft-Gault) 25.2 Glucose Level 148 mg/dL (70-99) Calcium Level 8.7 mg/dL (8.5-10.1) Phosphorus Level 4.1 mg/dL (2.6-4.7) Magnesium Level 2.5 mg/dL (1.8-2.4) Albumin 2.0 g/dL (3.4-5.0) Laboratory Tests Test 09/25/21 17:39 09/26/21 04:30 09/26/21 09:06 Glucose (Fingerstick) 208 mg/dL (70-99) 134 mg/dL (70-99) White Blood Count 11.0 x10^3/uL (4.0-11.0) Red Blood Count 4.69 x10^6/uL (4.30-5.70) Hemoglobin 12.5 g/dL (13.0-17.5) Hematocrit 39.4 % (39.0-53.0) Mean Corpuscular Volume 84 fL (79-100) Mean Corpuscular Hemoglobin 27 pg (25-35) Mean Corpuscular Hemoglobin Concent 32 g/dL (31-37) Red Cell Distribution Width 17.6 % (11.5-14.5) Platelet Count 123 x10^3/uL (140-400) Neutrophils (%) (Auto) 81 % (31-73) Lymphocytes (%) (Auto) 10 % (24-48) Monocytes (%) (Auto) 7 % (0-9) Eosinophils (%) (Auto) 1 % (0-3) Basophils (%) (Auto) 0 % (0-3) Neutrophils # (Auto) 8.9 x10^3/uL (1.8-7.7) Lymphocytes # (Auto) 1.1 x10^3/uL (1.0-4.8) Monocytes # (Auto) 0.8 x10^3/uL (0.0-1.1) Eosinophils # (Auto) 0.1 x10^3/uL (0.0-0.7) Basophils # (Auto) 0.0 x10^3/uL (0.0-0.2) Sodium Level 133 mmol/L (136-145) Potassium Level 4.3 mmol/L (3.5-5.1) Chloride Level 97 mmol/L (98-107) Carbon Dioxide Level 33 mmol/L (21-32) Anion Gap 3 (6-14) Blood Urea Nitrogen 44 mg/dL (8-26) Creatinine 2.7 mg/dL (0.7-1.3) Estimated GFR (Cockcroft-Gault) 25.2 Glucose Level 148 mg/dL (70-99) Calcium Level 8.7 mg/dL (8.5-10.1) Phosphorus Level 4.1 mg/dL (2.6-4.7) Magnesium Level 2.5 mg/dL (1.8-2.4) Albumin 2.0 g/dL (3.4-5.0) Medications Active Scripts Medications Dose Route/Sig Max Daily Dose Days Date Category [Albuterol] 09/23/21 Reported Jardiance (Empagliflozin) 25 Mg Tablet 1 Tab PO DAILY 09/23/21 Reported Benzonatate 200 Mg Capsule 1 Cap PO PRN TID PRN 08/19/21 Rx Ventolin Hfa Inhaler (Albuterol Sulfate) 18 Gm Hfa.aer.ad 2 Puff INH Q4HRS 08/19/21 Rx Doxycycline Hyclate 100 Mg Capsule 1 Cap PO BID 7 08/19/21 Rx Bumetanide 2 Mg Tablet 2 Mg PO BID 30 02/04/20 Rx Aspirin Ec (Aspirin) 325 Mg Tablet.dr 325 Mg PO DAILYWBKFT 30 9/1/20 Rx [Fluconazole] 100 MG Tablet 400 Mg PO DAILY 10 08/19/19 Rx Hydralazine Hcl 50 Mg Tablet 50 Mg PO TID 90 08/19/19 Rx K-Tab ER (Potassium Chloride) 20 Meq Tablet.er 20 Meq PO BID 30 08/19/19 Rx One-A-Day Essential (Multivitamin) 1 Each Tablet 1 Tab PO DAILY 30 08/15/19 Reported Metformin Hcl 500 Mg Tablet 2 Tab PO BIDWMEALS 08/15/19 Reported Carvedilol (Carvedilol) 12.5 Mg Tablet 2 Tab PO BIDWMEALS 08/15/19 Reported Lisinopril 20 Mg Tablet 1 Tab PO DAILY 08/15/19 Reported Impression . IMPRESSION: 1. Acute on chronic hypoxemic hypercapnic respiratory failure. 2. Sepsis. 3. Fever related to the above. 4. Marked leukocytosis. 5. Morbid obesity. 6. Acute on chronic renal insufficiency. 7. Lactic acidosis. 8. Protein malnutrition present upon admission. 9. Rapid test for SARS-CoV-2 negative. Plan . Updated 09/26 White count is decreased Titrate off of Vapotherm As needed and BiPAP nightly Antibiotics per ID updated So far cultures negative Discussed with RN and RT possibly up to chair Follow nephrology input Bronchodilators Critical care time of 30 minutes 09/25 ID consulted currently on daptomycin and Zosyn CT abdomen and chest reviewed, some basilar infiltrates consolidation. Right middle lobe is completely consolidated There is evidence of hepatosplenomegaly cholelithiasis Continue as needed nebulized treatments As needed BiPAP Cultures so far negative Once off of norepinephrine may start sitting patient up in the chair Critical care time of 30 minutes updated 09/24 White count 28,000 ABG better from yesterday PCR negative Follow ID input As needed BiPAP Bronchodilators Follow nephrology input Total cumulative critical care time of 30 minutes DAVID URBINA MD Sep 26, 2021 11:45
[2021-09-26] MEDS: ACETAMINOPHEN 325 MG TABLET. PO PRN (21:00)
[2021-09-27] VITALS (24 sets, daily range): BP systolic 140–193; BP diastolic 63–109
[2021-09-27] MEDS: STERILE WATER for RESP 2,000 ML BAG. INH PRN (01:35)
[2021-09-27] MEDS: ACETAMINOPHEN 325 MG TABLET. PO PRN ×2 (02:52→12:18)
[2021-09-27 04:42] LABS: BASO # 0.1 x10^3/uL (0.0-0.2); BASO % 1 % (0-3); EOS # 0.2 x10^3/uL (0.0-0.7); EOS % 3 % (0-3); HEMATOCRIT 39.5 % (39.0-53.0); HEMOGLOBIN 12.5 g/dL (13.0-17.5); LYMPH # 1.3 x10^3/uL (1.0-4.8); LYMPH % 18 % (24-48); MEAN CORPUSCULAR HEMOGLOBIN 27 pg (25-35); MEAN CORPUSCULAR HGB CONC 32 g/dL (31-37); MEAN CORPUSCULAR VOLUME 84 fL (79-100); MONO # 0.8 x10^3/uL (0.0-1.1); MONO % 11 % (0-9); NEUT # 4.9 x10^3/uL (1.8-7.7); NEUT % 68 % (31-73); PLATELET COUNT 141 x10^3/uL (140-400); RED BLOOD COUNT 4.73 x10^6/uL (4.30-5.70); RED CELL DISTRIBUTION WIDTH 17.1 % (11.5-14.5); WHITE BLOOD COUNT 7.2 x10^3/uL (4.0-11.0)
--- NOTE | 2021-09-27 05:00 | NUR ---
approx 0400 pt called out stating he could not get comfortable, helped pt readjust. complains of Headache 12/12. around 419 patient rhythm changed from Sinus Tach 100-105 to sinus Rhythm 65-80's with frequent PVCs. Labs and EKG obtained. At the time the EKG was being taken pt then returned to . [facility] in low locked position, call light in reach. Will continue to monitor.
[2021-09-27 05:10] LABS: ALBUMIN 1.9 g/dL (3.4-5.0); CREATININE 2.2 mg/dL (0.7-1.3); MAGNESIUM 2.3 mg/dL (1.8-2.4); PHOSPHORUS 3.2 mg/dL (2.6-4.7); POTASSIUM 4.4 mmol/L (3.5-5.1)
[2021-09-27] MEDS: PIPERACILLIN/TAZOBACTAM 3.375 GM in IV NORMAL SALINE 50ML 50 ML IV SCH ×2 (05:45→12:14)
--- NOTE | 2021-09-27 06:24 | NUR ---
unable to weigh patient bed shows "max weight detected".
[2021-09-27] MEDS: INSULIN LISPRO 300 UNITS/3 ML VIAL. SQ SCH ×3 (08:00→17:00)
[2021-09-27] MEDS: IV NORMAL SALINE 1000ML BAG 1,000 ML IV SCH ×2 (08:35→23:34)
--- NOTE | 2021-09-27 08:37 | PDOC ---
PULMONARY PROGRESS NOTES DATE: 09/27/21 TIME: 08:35 Subjective Patient currently on BiPAP Patient with no new complaints No chest pain no pressure Vitals Vital Signs Date Time Temp Pulse Resp B/P (MAP) Pulse Ox O2 Delivery O2 Flow Rate FiO2 09/27/21 06:20 65 22 171/86 (114) 95 BiPAP/CPAP 09/27/21 05:00 97.0 30.0 97.0 ROS: No Nausea, No Chest Pain, No Abdominal Pain, No Increase Cough General: Lethargic HEENT: Other Lungs: Clear Cardiovascular: S1, S2 Abdomen: Soft, Non-tender, Other Neuro Exam: Alert Extremities: Other (Decrease edema) Skin: Warm Labs Laboratory Tests Test 09/25/21 11:10 09/25/21 17:39 09/26/21 04:30 09/26/21 06:35 White Blood Count 17.5 x10^3/uL (4.0-11.0) 11.0 x10^3/uL (4.0-11.0) Red Blood Count 4.84 x10^6/uL (4.30-5.70) 4.69 x10^6/uL (4.30-5.70) Hemoglobin 12.8 g/dL (13.0-17.5) 12.5 g/dL (13.0-17.5) Hematocrit 40.8 % (39.0-53.0) 39.4 % (39.0-53.0) Mean Corpuscular Volume 84 fL (79-100) 84 fL (79-100) Mean Corpuscular Hemoglobin 27 pg (25-35) 27 pg (25-35) Mean Corpuscular Hemoglobin Concent 32 g/dL (31-37) 32 g/dL (31-37) Red Cell Distribution Width 17.9 % (11.5-14.5) 17.6 % (11.5-14.5) Platelet Count 139 x10^3/uL (140-400) 123 x10^3/uL (140-400) Neutrophils (%) (Auto) 87 % (31-73) 81 % (31-73) Lymphocytes (%) (Auto) 7 % (24-48) 10 % (24-48) Monocytes (%) (Auto) 6 % (0-9) 7 % (0-9) Eosinophils (%) (Auto) 0 % (0-3) 1 % (0-3) Basophils (%) (Auto) 0 % (0-3) 0 % (0-3) Neutrophils # (Auto) 15.3 x10^3/uL (1.8-7.7) 8.9 x10^3/uL (1.8-7.7) Lymphocytes # (Auto) 1.1 x10^3/uL (1.0-4.8) 1.1 x10^3/uL (1.0-4.8) Monocytes # (Auto) 1.0 x10^3/uL (0.0-1.1) 0.8 x10^3/uL (0.0-1.1) Eosinophils # (Auto) 0.1 x10^3/uL (0.0-0.7) 0.1 x10^3/uL (0.0-0.7) Basophils # (Auto) 0.1 x10^3/uL (0.0-0.2) 0.0 x10^3/uL (0.0-0.2) Sodium Level 131 mmol/L (136-145) 133 mmol/L (136-145) Potassium Level 4.6 mmol/L (3.5-5.1) 4.3 mmol/L (3.5-5.1) Chloride Level 95 mmol/L (98-107) 97 mmol/L (98-107) Carbon Dioxide Level 32 mmol/L (21-32) 33 mmol/L (21-32) Anion Gap 4 (6-14) 3 (6-14) Blood Urea Nitrogen 45 mg/dL (8-26) 44 mg/dL (8-26) Creatinine 2.9 mg/dL (0.7-1.3) 2.7 mg/dL (0.7-1.3) Estimated GFR (Cockcroft-Gault) 23.2 25.2 Glucose Level 215 mg/dL (70-99) 148 mg/dL (70-99) Calcium Level 8.9 mg/dL (8.5-10.1) 8.7 mg/dL (8.5-10.1) Creatine Kinase 20 U/L (39-308) Glucose (Fingerstick) 208 mg/dL (70-99) Phosphorus Level 4.1 mg/dL (2.6-4.7) Magnesium Level 2.5 mg/dL (1.8-2.4) Albumin 2.0 g/dL (3.4-5.0) Urine Random Sodium 39 mmol/L (Not Estab.) Test 09/26/21 09:06 09/26/21 15:18 09/26/21 18:32 09/27/21 04:30 Glucose (Fingerstick) 134 mg/dL (70-99) 135 mg/dL (70-99) 114 mg/dL (70-99) White Blood Count 7.2 x10^3/uL (4.0-11.0) Red Blood Count 4.73 x10^6/uL (4.30-5.70) Hemoglobin 12.5 g/dL (13.0-17.5) Hematocrit 39.5 % (39.0-53.0) Mean Corpuscular Volume 84 fL (79-100) Mean Corpuscular Hemoglobin 27 pg (25-35) Mean Corpuscular Hemoglobin Concent 32 g/dL (31-37) Red Cell Distribution Width 17.1 % (11.5-14.5) Platelet Count 141 x10^3/uL (140-400) Neutrophils (%) (Auto) 68 % (31-73) Lymphocytes (%) (Auto) 18 % (24-48) Monocytes (%) (Auto) 11 % (0-9) Eosinophils (%) (Auto) 3 % (0-3) Basophils (%) (Auto) 1 % (0-3) Neutrophils # (Auto) 4.9 x10^3/uL (1.8-7.7) Lymphocytes # (Auto) 1.3 x10^3/uL (1.0-4.8) Monocytes # (Auto) 0.8 x10^3/uL (0.0-1.1) Eosinophils # (Auto) 0.2 x10^3/uL (0.0-0.7) Basophils # (Auto) 0.1 x10^3/uL (0.0-0.2) Sodium Level 135 mmol/L (136-145) Potassium Level 4.4 mmol/L (3.5-5.1) Chloride Level 98 mmol/L (98-107) Carbon Dioxide Level 32 mmol/L (21-32) Anion Gap 5 (6-14) Blood Urea Nitrogen 41 mg/dL (8-26) Creatinine 2.2 mg/dL (0.7-1.3) Estimated GFR (Cockcroft-Gault) 32.0 Glucose Level 143 mg/dL (70-99) Calcium Level 9.0 mg/dL (8.5-10.1) Phosphorus Level 3.2 mg/dL (2.6-4.7) Magnesium Level 2.3 mg/dL (1.8-2.4) Troponin I High Sensitivity 11 ng/L (4-75) Albumin 1.9 g/dL (3.4-5.0) Test 09/27/21 04:50 Glucose (Fingerstick) 137 mg/dL (70-99) Laboratory Tests Test 09/26/21 09:06 09/26/21 15:18 09/26/21 18:32 09/27/21 04:30 Glucose (Fingerstick) 134 mg/dL (70-99) 135 mg/dL (70-99) 114 mg/dL (70-99) White Blood Count 7.2 x10^3/uL (4.0-11.0) Red Blood Count 4.73 x10^6/uL (4.30-5.70) Hemoglobin 12.5 g/dL (13.0-17.5) Hematocrit 39.5 % (39.0-53.0) Mean Corpuscular Volume 84 fL (79-100) Mean Corpuscular Hemoglobin 27 pg (25-35) Mean Corpuscular Hemoglobin Concent 32 g/dL (31-37) Red Cell Distribution Width 17.1 % (11.5-14.5) Platelet Count 141 x10^3/uL (140-400) Neutrophils (%) (Auto) 68 % (31-73) Lymphocytes (%) (Auto) 18 % (24-48) Monocytes (%) (Auto) 11 % (0-9) Eosinophils (%) (Auto) 3 % (0-3) Basophils (%) (Auto) 1 % (0-3) Neutrophils # (Auto) 4.9 x10^3/uL (1.8-7.7) Lymphocytes # (Auto) 1.3 x10^3/uL (1.0-4.8) Monocytes # (Auto) 0.8 x10^3/uL (0.0-1.1) Eosinophils # (Auto) 0.2 x10^3/uL (0.0-0.7) Basophils # (Auto) 0.1 x10^3/uL (0.0-0.2) Sodium Level 135 mmol/L (136-145) Potassium Level 4.4 mmol/L (3.5-5.1) Chloride Level 98 mmol/L (98-107) Carbon Dioxide Level 32 mmol/L (21-32) Anion Gap 5 (6-14) Blood Urea Nitrogen 41 mg/dL (8-26) Creatinine 2.2 mg/dL (0.7-1.3) Estimated GFR (Cockcroft-Gault) 32.0 Glucose Level 143 mg/dL (70-99) Calcium Level 9.0 mg/dL (8.5-10.1) Phosphorus Level 3.2 mg/dL (2.6-4.7) Magnesium Level 2.3 mg/dL (1.8-2.4) Troponin I High Sensitivity 11 ng/L (4-75) Albumin 1.9 g/dL (3.4-5.0) Test 09/27/21 04:50 Glucose (Fingerstick) 137 mg/dL (70-99) Medications Active Scripts Medications Dose Route/Sig Max Daily Dose Days Date Category [Albuterol] 09/23/21 Reported Jardiance (Empagliflozin) 25 Mg Tablet 1 Tab PO DAILY 09/23/21 Reported Benzonatate 200 Mg Capsule 1 Cap PO PRN TID PRN 08/19/21 Rx Ventolin Hfa Inhaler (Albuterol Sulfate) 18 Gm Hfa.aer.ad 2 Puff INH Q4HRS 08/19/21 Rx Doxycycline Hyclate 100 Mg Capsule 1 Cap PO BID 7 08/19/21 Rx Bumetanide 2 Mg Tablet 2 Mg PO BID 30 02/04/20 Rx Aspirin Ec (Aspirin) 325 Mg Tablet.dr 325 Mg PO DAILYWBKFT 30 02/04/20 Rx [Fluconazole] 100 MG Tablet 400 Mg PO DAILY 10 08/19/19 Rx Hydralazine Hcl 50 Mg Tablet 50 Mg PO TID 90 08/19/19 Rx K-Tab ER (Potassium Chloride) 20 Meq Tablet.er 20 Meq PO BID 30 08/19/19 Rx One-A-Day Essential (Multivitamin) 1 Each Tablet 1 Tab PO DAILY 30 08/15/19 Reported Metformin Hcl 500 Mg Tablet 2 Tab PO BIDWMEALS 08/15/19 Reported Carvedilol (Carvedilol) 12.5 Mg Tablet 2 Tab PO BIDWMEALS 08/15/19 Reported Lisinopril 20 Mg Tablet 1 Tab PO DAILY 08/15/19 Reported Impression . IMPRESSION: 1. Acute on chronic hypoxemic hypercapnic respiratory failure. 2. Sepsis. 3. Fever related to the above. 4. Marked leukocytosis. 5. Morbid obesity. 6. Acute on chronic renal insufficiency. 7. Lactic acidosis. 8. Protein malnutrition present upon admission. 9. Rapid test for SARS-CoV-2 negative. Plan . Updated 09/27 Discussed with RT, titrate Vapotherm down Nightly BiPAP Antibiotics per ID Follow-up on cultures Advance diet Bronchodilators DVT prophylaxis Critical care time of 30 minutes Updated 09/26 White count is decreased Titrate off of Vapotherm As needed and BiPAP nightly Antibiotics per ID updated So far cultures negative Discussed with RN and RT possibly up to chair Follow nephrology input Bronchodilators Critical care time of 30 minutes DAVID URBINA MD Sep 27, 2021 08:37
[2021-09-27] MEDS: LINEZOLID 600 MG TABLET PO SCH ×2 (09:14→20:43)
--- NOTE | 2021-09-27 09:21 | PDOC ---
PROGRESS NOTES Date of Service: DATE: 09/27/21 TIME: 09:18 Subjective Subjective seen in ICU, on vapotherm 20 L Objective Objective Vital Signs Date Time Temp Pulse Resp B/P (MAP) Pulse Ox O2 Delivery O2 Flow Rate FiO2 09/27/21 08:46 99 vapotherm 30.0 09/27/21 06:20 65 22 171/86 (114) 09/27/21 05:00 97.0 97.0 Intake and Output 09/27/21 06:59 Intake Total 2645.8 ml Output Total 2410 ml Balance 235.8 ml Intake Oral 1900 ml IV Total 745.8 ml Output Urine Total 2410 ml # Bowel Movements 6 Physical Exam Abdomen: Soft Heart: Regular rate, Normal S1 Extremities: Other (lympedema ) General: Oriented X3 HEENT: PERRLA Lungs: Normal air movement MUSCULOSKELETAL: Osteoarthritic changes both hands Neuro: Normal speech Psych/Mental Status: Mental status NL Skin: No breakdown COMMENT domenico present Diagnosis Problem List Problems Medical Problems: (1) Acute on chronic respiratory failure with hypoxia and hypercapnia Status: Acute (2) Community acquired pneumonia Status: Acute Assessment Assessment Problems Medical Problems: (1) Acute on chronic respiratory failure with hypoxia and hypercapnia Status: Acute (2) Community acquired pneumonia Status: Acute FINAL IMPRESSION: 1. .Hypercapnic acute respiratory failure. 2. Pneumonia, rule out postobstructive pneumonia 3. Diastolic heart failure. 4. Diabetes. 5. Lactic acidosis. 6. Sepsis with multisystem failure. 7. Ac Renal failure PLAN: spoke with Pulmonary today. Ct scan rt middle and lower lobe Pneumonia with atelactasis Off BIPAP , now on high flow oxygen 20L. Low dose Levophed. Pneumonia wbc 28.5 trending down to 8. on Dapto+zosyn cr 2.2 due to ATN,coming down slowly Diabetes Mellitus. BS Around 200. SSI. DVT prevention o Lovenox. c/s neg so far. domenico for accurate i/o . Plan Plan of Care Problems Medical Problems: (1) Acute on chronic respiratory failure with hypoxia and hypercapnia Status: Acute (2) Community acquired pneumonia Status: Acute Comment Review of Relevant I have reviewed the following items adolfo (where applicable) has been applied. Labs Laboratory Tests Test 09/26/21 15:18 09/26/21 18:32 09/27/21 04:30 09/27/21 04:50 Glucose (Fingerstick) 135 mg/dL (70-99) 114 mg/dL (70-99) 137 mg/dL (70-99) White Blood Count 7.2 x10^3/uL (4.0-11.0) Red Blood Count 4.73 x10^6/uL (4.30-5.70) Hemoglobin 12.5 g/dL (13.0-17.5) Hematocrit 39.5 % (39.0-53.0) Mean Corpuscular Volume 84 fL (79-100) Mean Corpuscular Hemoglobin 27 pg (25-35) Mean Corpuscular Hemoglobin Concent 32 g/dL (31-37) Red Cell Distribution Width 17.1 % (11.5-14.5) Platelet Count 141 x10^3/uL (140-400) Neutrophils (%) (Auto) 68 % (31-73) Lymphocytes (%) (Auto) 18 % (24-48) Monocytes (%) (Auto) 11 % (0-9) Eosinophils (%) (Auto) 3 % (0-3) Basophils (%) (Auto) 1 % (0-3) Neutrophils # (Auto) 4.9 x10^3/uL (1.8-7.7) Lymphocytes # (Auto) 1.3 x10^3/uL (1.0-4.8) Monocytes # (Auto) 0.8 x10^3/uL (0.0-1.1) Eosinophils # (Auto) 0.2 x10^3/uL (0.0-0.7) Basophils # (Auto) 0.1 x10^3/uL (0.0-0.2) Sodium Level 135 mmol/L (136-145) Potassium Level 4.4 mmol/L (3.5-5.1) Chloride Level 98 mmol/L (98-107) Carbon Dioxide Level 32 mmol/L (21-32) Anion Gap 5 (6-14) Blood Urea Nitrogen 41 mg/dL (8-26) Creatinine 2.2 mg/dL (0.7-1.3) Estimated GFR (Cockcroft-Gault) 32.0 Glucose Level 143 mg/dL (70-99) Calcium Level 9.0 mg/dL (8.5-10.1) Phosphorus Level 3.2 mg/dL (2.6-4.7) Magnesium Level 2.3 mg/dL (1.8-2.4) Troponin I High Sensitivity 11 ng/L (4-75) Albumin 1.9 g/dL (3.4-5.0) Test 09/27/21 08:40 Glucose (Fingerstick) 116 mg/dL (70-99) Microbiology 09/23/21 Urine Culture - Final, Complete 09/22/21 Blood Culture - Preliminary, Resulted NO GROWTH AFTER 4 DAYS Vitals/I & O Vital Sign - Last 24 Hours 09/26/21 09/26/21 09/26/21 09/26/21 09:32 09:46 10:00 11:00 Pulse 98 97 Resp 18 20 B/P (MAP) 136/79 (98) 135/77 (96) Pulse Ox 85 96 100 100 O2 Delivery vapotherm Vapotherm Vapotherm O2 Flow Rate 30.0 30.0 30.0 30.0 09/26/21 09/26/21 09/26/21 09/26/21 11:33 12:00 12:00 13:00 Temp 99.2 99.2 Pulse 72 96 Resp 25 34 B/P (MAP) 123/77 (92) 136/78 (97) Pulse Ox 95 100 98 O2 Delivery vapotherm Vapotherm Vapotherm Vapotherm O2 Flow Rate 30.0 30.0 30.0 30.0 09/26/21 09/26/21 09/26/21 09/26/21 14:00 15:00 15:25 16:00 Pulse 96 98 Resp 30 23 B/P (MAP) 148/82 (104) 142/80 (100) Pulse Ox 98 98 93 O2 Delivery Vapotherm Vapotherm vapotherm Vapotherm O2 Flow Rate 30.0 30.0 30.0 30.0 09/26/21 09/26/21 09/26/21 09/26/21 16:00 17:00 17:01 18:00 Pulse 96 74 96 Resp 25 25 23 B/P (MAP) 165/98 (120) 173/94 (120) 165/98 (120) Pulse Ox 98 98 96 98 O2 Delivery Vapotherm Vapotherm vapotherm Vapotherm O2 Flow Rate 30.0 30.0 30.0 30.0 4/24/22 4/24/22 4/24/22 4/24/22 19:00 19:50 20:00 20:00 Temp 98.1 98.1 Pulse 100 103 Resp B/P (MAP) 158/77 (104) 154/81 (105) Pulse Ox 98 97 93 O2 Delivery Vapotherm vapotherm Vapotherm Vapotherm O2 Flow Rate 30.0 30.0 30.0 30.0 09/26/21 09/26/21 09/26/21 09/26/21 21:00 22:00 22:55 23:00 Pulse 102 107 103 Resp B/P (MAP) 150/82 (104) 173/91 (118) 159/72 (101) Pulse Ox 95 91 97 98 O2 Delivery Vapotherm Vapotherm BiPAP/CPAP BiPAP/CPAP O2 Flow Rate 30.0 30.0 09/27/21 09/27/21 09/27/21 09/27/21 00:19 00:19 01:00 02:00 Temp 98.1 98.1 Pulse 101 79 Resp B/P (MAP) 143/77 (99) 165/88 (113) Pulse Ox 98 93 95 O2 Delivery BiPAP/CPAP Bi-pap Vapotherm vapotherm O2 Flow Rate 30.0 30.0 09/27/21 09/27/21 09/27/21 09/27/21 02:08 03:01 03:45 04:18 Pulse 106 103 Resp B/P (MAP) 155/91 (112) 151/64 (93) Pulse Ox 98 95 93 O2 Delivery Vapotherm Vapotherm vapotherm Vapotherm O2 Flow Rate 30.0 30.0 30.0 30.0 09/27/21 09/27/21 09/27/21 09/27/21 04:28 05:00 05:20 06:20 Temp 97.0 97.0 Pulse 76 95 65 Resp B/P (MAP) 149/77 (101) 161/86 (111) 171/86 (114) Pulse Ox 95 95 98 95 O2 Delivery Vapotherm Vapotherm BiPAP/CPAP BiPAP/CPAP O2 Flow Rate 30.0 30.0 09/27/21 08:46 Pulse Ox 99 O2 Delivery vapotherm O2 Flow Rate 30.0 Intake and Output 09/26/21 09/26/21 09/27/21 14:59 22:59 06:59 Intake Total 1050 ml 650 ml 945.8 ml Output Total 850 ml 850 ml 710 ml Balance 200 ml -200 ml 235.8 ml Justifications for Admission Other Justification ANT LICEA MD Sep 27, 2021 09:20
--- NOTE | 2021-09-27 09:27 | PDOC ---
DATE OF SERVICE DATE: 09/27/21 TIME: 09:25 SUBJECTIVE ROS on Vapotherm , stable OBJECTIVE Vital Signs Vital Signs Date Time Temp Pulse Resp B/P (MAP) Pulse Ox O2 Delivery O2 Flow Rate FiO2 09/27/21 08:46 99 vapotherm 30.0 09/27/21 06:20 65 22 171/86 (114) 09/27/21 05:00 97.0 97.0 I & 0 Intake and Output 09/27/21 07:00 Intake Total 2645.8 ml Output Total 2410 ml Balance 235.8 ml Intake Oral 1900 ml IV Total 745.8 ml Output Urine Total 2410 ml # Bowel Movements 6 PHYSICAL EXAM Physical Exam GENERAL: not in distress.Morbidly obese HEENT: Both pupils are round and reacting. No conjunctival lesion, OM moist NECK: Supple, no JVP, no lymphadenopathy. LUNGS: Clear.non labored HEART: S1, S2, regular. ABDOMEN: Soft, nontender, no organomegaly.Obese EXTREMITIES: No edema or cyanosis. Chronic changes present in the legs. NEUROLOGIC: No focal neurologic deficit [place] in place , No CVA or SP tenderness DERM No Rash DIAGNOSIS/ASSESSMENT Assessment & Plan ADINA - ATN/Vomiting /Hypotension /Sepsis , Non Oliguric .Creat trending down maintain fluid balance. Supportive care, avoid nephrotoxins, I/O . 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 Fever / Sepsis/ Marked leukocytosis. Renal Cyst - 2.2 cm hypodense exophytic left renal lesion, likely a simple or minimally complicated cyst. COPD Morbid obesity. COMMENT/RELEVANT DATA Meds Current Medications Medications (Trade) Dose Ordered Sig/Michelle Start Time Stop Time Status Last Admin Dose Admin Acetaminophen (Tylenol) 650 mg PRN Q6HRS PRN 09/25/21 12:30 09/27/21 02:52 650 MG Albuterol Sulfate (Ventolin Neb Soln) 2.5 mg PRN Q4HRS PRN 09/22/21 23:30 Albuterol/ Ipratropium (Duoneb) 3 ml 1X ONCE 09/22/21 22:30 09/22/21 22:31 DC 09/22/21 22:05 3 ML Ceftriaxone Sodium (Rocephin) 2 gm 1X ONCE 09/22/21 23:30 09/22/21 23:31 DC 09/23/21 00:11 2 GM Daptomycin 760 mg/ Sodium Chloride 50 ml @ 100 mls/hr Q24H 09/23/21 16:00 09/26/21 12:32 DC 09/25/21 16:42 100 MLS/HR Dextrose (Dextrose 50%-Water Syringe) 12.5 gm PRN Q15MIN PRN 09/23/21 09:15 Doxycycline Hyclate 100 mg/ Dextrose 100 ml @ 50 mls/hr 1X ONCE 09/22/21 23:30 09/23/21 01:29 DC Enoxaparin Sodium (Lovenox 60mg Syringe) 60 mg Q12HR 09/23/21 09:00 09/27/21 09:11 60 MG Enoxaparin Sodium (Lovenox Per Pharmacy Prophylaxis Dosing) 1 each PRN DAILY PRN 09/23/21 09:00 Fentanyl Citrate (Fentanyl 2ml Vial) 50 mcg PRN Q1HR PRN 09/22/21 23:15 09/23/21 23:14 DC Insulin Human Lispro (HumaLOG) 0-5 UNITS TIDWMEALS 09/23/21 12:00 09/25/21 18:08 3 UNITS Linezolid (Zyvox) 600 mg BID 09/25/21 18:00 09/27/21 09:14 600 MG Magnesium Sulfate 50 ml @ 25 mls/hr PRN DAILY PRN 09/25/21 12:00 Magnesium Sulfate 3 gm/Dextrose 106 ml @ 35.333 mls/ hr 1X ONCE 09/23/21 15:45 09/23/21 18:44 UNV Magnesium Sulfate/ Dextrose 100 ml @ 100 mls/hr 1X ONCE 09/23/21 18:00 09/23/21 18:59 DC 09/23/21 16:36 100 MLS/HR Norepinephrine Bitartrate 8 mg/ Dextrose 258 ml @ 40.442 mls/ hr CONT PRN 09/23/21 01:45 09/25/21 05:27 40.442 MLS/HR Ondansetron HCl (Zofran) 4 mg PRN Q8HRS PRN 09/22/21 23:15 09/23/21 23:14 DC 09/23/21 22:55 4 MG Piperacillin Sod/ Tazobactam Sod (Zosyn Per Pharmacy) 1 each PRN DAILY PRN 09/23/21 08:45 Piperacillin Sod/ Tazobactam Sod 3.375 gm/Sodium Chloride 50 ml @ 100 mls/hr Q6HRS 09/23/21 09:00 09/27/21 05:45 100 MLS/HR Sodium Chloride 1,000 ml @ 75 mls/hr [id number] 09/23/21 02:15 09/27/21 08:35 75 MLS/HR Sterile Water (WATER for RESP) 2,000 ml CONT PRN 09/23/21 15:30 09/27/21 01:35 2,000 ML Lab Laboratory Tests Test 09/26/21 15:18 09/26/21 18:32 09/27/21 04:30 09/27/21 04:50 Glucose (Fingerstick) 135 mg/dL (70-99) 114 mg/dL (70-99) 137 mg/dL (70-99) White Blood Count 7.2 x10^3/uL (4.0-11.0) Red Blood Count 4.73 x10^6/uL (4.30-5.70) Hemoglobin 12.5 g/dL (13.0-17.5) Hematocrit 39.5 % (39.0-53.0) Mean Corpuscular Volume 84 fL (79-100) Mean Corpuscular Hemoglobin 27 pg (25-35) Mean Corpuscular Hemoglobin Concent 32 g/dL (31-37) Red Cell Distribution Width 17.1 % (11.5-14.5) Platelet Count 141 x10^3/uL (140-400) Neutrophils (%) (Auto) 68 % (31-73) Lymphocytes (%) (Auto) 18 % (24-48) Monocytes (%) (Auto) 11 % (0-9) Eosinophils (%) (Auto) 3 % (0-3) Basophils (%) (Auto) 1 % (0-3) Neutrophils # (Auto) 4.9 x10^3/uL (1.8-7.7) Lymphocytes # (Auto) 1.3 x10^3/uL (1.0-4.8) Monocytes # (Auto) 0.8 x10^3/uL (0.0-1.1) Eosinophils # (Auto) 0.2 x10^3/uL (0.0-0.7) Basophils # (Auto) 0.1 x10^3/uL (0.0-0.2) Sodium Level 135 mmol/L (136-145) Potassium Level 4.4 mmol/L (3.5-5.1) Chloride Level 98 mmol/L (98-107) Carbon Dioxide Level 32 mmol/L (21-32) Anion Gap 5 (6-14) Blood Urea Nitrogen 41 mg/dL (8-26) Creatinine 2.2 mg/dL (0.7-1.3) Estimated GFR (Cockcroft-Gault) 32.0 Glucose Level 143 mg/dL (70-99) Calcium Level 9.0 mg/dL (8.5-10.1) Phosphorus Level 3.2 mg/dL (2.6-4.7) Magnesium Level 2.3 mg/dL (1.8-2.4) Troponin I High Sensitivity 11 ng/L (4-75) Albumin 1.9 g/dL (3.4-5.0) Test 09/27/21 08:40 Glucose (Fingerstick) 116 mg/dL (70-99) Results All relevant outside records, renal labs, imaging studies, telemetry/EKG's were reviewed. Justicifation of Admission Dx: Justifications for Admission: Justification of Admission Dx: Yes VASHTI ANTONY MD Sep 27, 2021 09:27
[2021-09-27 11:10] LABS: BACTERIA,URINE 0 /HPF (0-FEW); WBC,URINE 0 /HPF (0-4)
--- NOTE | 2021-09-27 11:21 | EKG ---
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
--- NOTE | 2021-09-27 12:48 | PDOC ---
Infectious Disease Note Subjective Subjective Patient feels better Fever pattern improved Denies any fever, nausea, vomiting, pain ROS ROS as above Vital Sign Vital Signs Vital Signs Date Time Temp Pulse Resp B/P (MAP) Pulse Ox O2 Delivery O2 Flow Rate FiO2 09/27/21 11:44 99 vapotherm 30.0 09/27/21 09:00 71 21 150/91 (110) 09/27/21 07:00 97.4 97.4 Physical Exam PHYSICAL EXAM GENERAL: Alert, oriented gentleman, not in distress. VITAL SIGNS: Stable. temperature is normal, pulse 73, respirations 16, blood pressure 125/66. HEENT: Both pupils are round and reacting. No conjunctival lesion, no lesion in the mouth. NECK: Supple, no JVP, no lymphadenopathy. LUNGS: Clear. HEART: S1, S2, regular. ABDOMEN: Soft, nontender, no organomegaly. EXTREMITIES: No edema or cyanosis. Chronic changes present in the legs. NEUROLOGIC: The patient is alert, awake, and appropriate. No focal neurologic deficit. Labs Lab Laboratory Tests Test 09/26/21 15:18 09/26/21 18:32 09/27/21 04:30 09/27/21 04:50 Glucose (Fingerstick) 135 mg/dL (70-99) 114 mg/dL (70-99) 137 mg/dL (70-99) White Blood Count 7.2 x10^3/uL (4.0-11.0) Red Blood Count 4.73 x10^6/uL (4.30-5.70) Hemoglobin 12.5 g/dL (13.0-17.5) Hematocrit 39.5 % (39.0-53.0) Mean Corpuscular Volume 84 fL (79-100) Mean Corpuscular Hemoglobin 27 pg (25-35) Mean Corpuscular Hemoglobin Concent 32 g/dL (31-37) Red Cell Distribution Width 17.1 % (11.5-14.5) Platelet Count 141 x10^3/uL (140-400) Neutrophils (%) (Auto) 68 % (31-73) Lymphocytes (%) (Auto) 18 % (24-48) Monocytes (%) (Auto) 11 % (0-9) Eosinophils (%) (Auto) 3 % (0-3) Basophils (%) (Auto) 1 % (0-3) Neutrophils # (Auto) 4.9 x10^3/uL (1.8-7.7) Lymphocytes # (Auto) 1.3 x10^3/uL (1.0-4.8) Monocytes # (Auto) 0.8 x10^3/uL (0.0-1.1) Eosinophils # (Auto) 0.2 x10^3/uL (0.0-0.7) Basophils # (Auto) 0.1 x10^3/uL (0.0-0.2) Sodium Level 135 mmol/L (136-145) Potassium Level 4.4 mmol/L (3.5-5.1) Chloride Level 98 mmol/L (98-107) Carbon Dioxide Level 32 mmol/L (21-32) Anion Gap 5 (6-14) Blood Urea Nitrogen 41 mg/dL (8-26) Creatinine 2.2 mg/dL (0.7-1.3) Estimated GFR (Cockcroft-Gault) 32.0 Glucose Level 143 mg/dL (70-99) Calcium Level 9.0 mg/dL (8.5-10.1) Phosphorus Level 3.2 mg/dL (2.6-4.7) Magnesium Level 2.3 mg/dL (1.8-2.4) Troponin I High Sensitivity 11 ng/L (4-75) Albumin 1.9 g/dL (3.4-5.0) Test 09/27/21 08:30 09/27/21 08:40 09/27/21 12:10 Urine Collection Type Unknown Urine Color (Auto) Light yellow Urine Turbidity Turbid Urine pH (Auto) 5.5 (<5.0-8.0) Urine Specific [place] 1.017 (1.000-1.030) Urine Protein (Auto) 50 mg/dL (Negative) Urine Glucose (Auto)(UA) Negative mg/dL (Negative) Urine Ketones (Auto) Trace mg/dL (Negative) Urine Blood (Auto) Large (Negative) Urine Nitrite (Auto) Negative (Negative) Urine Bilirubin (Auto) Negative (Negative) Urine Urobilinogen (Auto) Normal mg/dL (Normal) Urine Leukocyte Esterase (Auto) Small (Negative) Urine RBC 11-20 /HPF (0-2) Urine WBC 0 /HPF (0-4) Urine Squamous Epithelial Cells None /LPF Urine Bacteria 0 /HPF (0-FEW) Glucose (Fingerstick) 116 mg/dL (70-99) 177 mg/dL (70-99) Micro Microbiology 09/22/21 Blood Culture - Preliminary, Resulted NO GROWTH AFTER 1 DAY Objective Assessment 1. Fever and chills. 2. Leukocytosis. 3. Respiratory failure. 4. Circulatory failure. 5. Lactic acidosis. 6. Chronic obstructive pulmonary disease. 7. Morbid obesity. 8. History of right-sided heart failure. Plan Plan of Care Continue Zosyn and zyvox DC daptomycin CT Chest abdomen and pelvis results reviewed F/U labs and cultures Cont supportive care . Discussed with CONSUELO WU,HEATHER Vega MD Sep 27, 2021 12:48
[2021-09-27] MEDS: MINERAL OIL/PETROLATUM TOPICAL CREAM 113GM JAR. TP SCH ×2 (16:17→20:43)
[2021-09-27] MEDS ORDERED: cloNIDine TTS-2 1 PATCH PATCH TD SCH (17:00)
[2021-09-27] MEDS: hydrALAZINE 20 MG/ML VIAL. IVP PRN (17:12)
[2021-09-27] MEDS: PIPERACILLIN/TAZOBACTAM 4.5 GM in IV DEXTROSE 5% 100ML 100 ML IV SCH (17:59)
--- NOTE | 2021-09-27 20:12 | CONS ---
DATE OF CONSULTATION: 09/27/2021 LOCATION: He is in room 113. ATTENDING PHYSICIAN: Allison Kay MD REASON FOR CONSULTATION: The patient was seen at the request of Dr. Kay for rehab evaluation. HISTORY OF PRESENT ILLNESS: This is a 51-year-old right-handed male with known morbid obesity, obstructive sleep apnea, diabetes mellitus, congestive heart failure, cor pulmonale, diabetes, peripheral neuropathy, chronic venous insufficiency of both lower extremities, degenerative joint disease of both knees, uses oxygen at 2 liters at home, on disability, admitted on 09/22/2021 with fever, respiratory failure, hypercapnic and pneumonia. He was noted with white cell count of 23,000 and chest x-ray revealed infiltrate. CT scan revealed pneumonia. The patient right now is on Vapotherm. The patient denies any pain. He is being followed by physical therapy and occupational therapy. The patient lives with his niece, had 1 step to enter the house plus basement. He has been independent with mobility and most of the aspects of his self-care prior to the present hospitalization, not using an assistive devices. The patient also was found with lactic acid increased level, hypotension with kidney failure. ALLERGIES: THE PATIENT IS KNOWN ALLERGIC TO BLEACH AND MORPHINE. FAMILY HISTORY: Diabetes mellitus, heart disease and hypertension. He still smokes, he smoked for about 30 years. He takes hydrocodone for pain. PHYSICAL EXAMINATION: GENERAL: Today revealed a middle-aged male. He is alert, oriented to time, place, person and circumstance, follows commands appropriately. NEUROLOGIC: Moves all 4 extremities voluntarily where he had 4+/5 grade muscle strength and deep tendon reflexes are decreased overall with absent knee and ankle jerks. He had crepitus on range of motion of both knee joints with knee joint effusion. The patient had pain on range of motion of his knee joints. The patient had equal perception of touch and pinprick sensation bilaterally. He is using oxygen by nasal cannula and receiving IV fluids. He had an indwelling [place] catheter in place. He had skin changes from chronic venous insufficiency of both legs distal part with associated dry scaly skin. He is independent with rolling from side to side and he apparently got up with physical therapy and walked at bedside with minimal assistance. ASSESSMENT: A middle-aged male with community-acquired pneumonia in a patient with known obstructive sleep apnea, morbid obesity, cor pulmonale, diastolic heart failure, morbid obesity, diabetes mellitus and hypertension with recent onset renal failure and respiratory failure. He also presents with peripheral neuropathy, morbid obesity, chronic lower extremity venous insufficiency and degenerative joint disease of both knees with pain. RECOMMENDATIONS: Agree with the plan for physical therapy and occupational therapy to get him up as tolerated. Dr. Kay, appreciate asking me to participate in the care of this interesting patient. I will be glad to see him for a followup with you on as needed basis. RAMAN/BUCK PAN: Nancy TID: [id number]
[2021-09-28] VITALS (24 sets, daily range): BP systolic 142–198; BP diastolic 71–106
[2021-09-28] MEDS: PIPERACILLIN/TAZOBACTAM 4.5 GM in IV DEXTROSE 5% 100ML 100 ML IV SCH ×5 (00:19→17:31)
[2021-09-28] MEDS: ACETAMINOPHEN 325 MG TABLET. PO PRN ×2 (03:26→15:53)
[2021-09-28 04:42] LABS: BASO % 1 % (0-3); EOS # 0.2 x10^3/uL (0.0-0.7); EOS % 3 % (0-3); HEMATOCRIT 40.2 % (39.0-53.0); HEMOGLOBIN 12.6 g/dL (13.0-17.5); LYMPH # 1.3 x10^3/uL (1.0-4.8); LYMPH % 20 % (24-48); MEAN CORPUSCULAR HEMOGLOBIN 26 pg (25-35); MEAN CORPUSCULAR HGB CONC 31 g/dL (31-37); MEAN CORPUSCULAR VOLUME 84 fL (79-100); MONO # 0.8 x10^3/uL (0.0-1.1); MONO % 12 % (0-9); NEUT # 4.2 x10^3/uL (1.8-7.7); NEUT % 64 % (31-73); PLATELET COUNT 142 x10^3/uL (140-400); RED CELL DISTRIBUTION WIDTH 17.4 % (11.5-14.5); WHITE BLOOD COUNT 6.5 x10^3/uL (4.0-11.0)
[2021-09-28 04:57] LABS: ALBUMIN 1.9 g/dL (3.4-5.0); CALCIUM 9.3 mg/dL (8.5-10.1); GFR 35.7; MAGNESIUM 2.3 mg/dL (1.8-2.4); PHOSPHORUS 3.1 mg/dL (2.6-4.7); POTASSIUM 4.3 mmol/L (3.5-5.1)
[2021-09-28] MEDS: IV NORMAL SALINE 1000ML BAG 1,000 ML IV SCH (06:14)
[2021-09-28] MEDS: INSULIN LISPRO 300 UNITS/3 ML VIAL. SQ SCH ×3 (07:25→17:00)
[2021-09-28] MEDS: LINEZOLID 600 MG TABLET PO SCH ×2 (09:01→21:09)
[2021-09-28] MEDS: MINERAL OIL/PETROLATUM TOPICAL CREAM 113GM JAR. TP SCH ×2 (09:02→21:09)
--- NOTE | 2021-09-28 09:02 | PDOC ---
PROGRESS NOTES Date of Service: DATE: 09/28/21 TIME: 08:58 Subjective Subjective seen in ICU Objective Objective Vital Signs Date Time Temp Pulse Resp B/P (MAP) Pulse Ox O2 Delivery O2 Flow Rate FiO2 09/28/21 08:00 Bi-pap 09/28/21 08:00 98.3 65 20 165/85 (111) 97 30.0 98.3 Intake and Output 09/28/21 07:00 Intake Total 480 ml Output Total 1850 ml Balance -1370 ml Intake Oral 480 ml Output Urine Total 1850 ml Physical Exam Abdomen: Soft Heart: Regular rate, Normal S1 Extremities: Other (lympedema ) General: Oriented X3 HEENT: PERRLA Lungs: Normal air movement MUSCULOSKELETAL: Osteoarthritic changes both hands Neuro: Normal speech Psych/Mental Status: Mental status NL Skin: No breakdown COMMENT domenico present Diagnosis Problem List Problems Medical Problems: (1) Acute on chronic respiratory failure with hypoxia and hypercapnia Status: Acute (2) Community acquired pneumonia Status: Acute Assessment Assessment Problems Medical Problems: (1) Acute on chronic respiratory failure with hypoxia and hypercapnia Status: Acute (2) Community acquired pneumonia Status: Acute FINAL IMPRESSION: 1. .Hypercapnic acute respiratory failure. 2. Pneumonia, rule out postobstructive pneumonia 3. Diastolic heart failure. 4. Diabetes. 5. Lactic acidosis. 6. Sepsis with multisystem failure. 7. Ac Renal failure PLAN: plans to move out of ICU today. spoke with pulmonary Dr Dillard spoke with rehab dr Arrieta Ct scan rt middle and lower lobe Pneumonia with atelactasis Off BIPAP , now on high flow oxygen 20-30L. Low dose Levophed. Pneumonia wbc 28.5 trending down to 8. on Dapto+zosyn cr 2.0 due to ATN,coming down slowly Diabetes Mellitus. BS Around 200. SSI. DVT prevention o Lovenox. c/s neg so far. d/c acuña and IV fluids? if ok with renal . Plan Plan of Care Problems Medical Problems: (1) Acute on chronic respiratory failure with hypoxia and hypercapnia Status: Acute (2) Community acquired pneumonia Status: Acute Comment Review of Relevant I have reviewed the following items adolfo (where applicable) has been applied. Labs Laboratory Tests Test 09/27/21 12:10 09/27/21 17:10 09/28/21 04:00 Glucose (Fingerstick) 177 mg/dL (70-99) 143 mg/dL (70-99) White Blood Count 6.5 x10^3/uL (4.0-11.0) Red Blood Count 4.80 x10^6/uL (4.30-5.70) Hemoglobin 12.6 g/dL (13.0-17.5) Hematocrit 40.2 % (39.0-53.0) Mean Corpuscular Volume 84 fL (79-100) Mean Corpuscular Hemoglobin 26 pg (25-35) Mean Corpuscular Hemoglobin Concent 31 g/dL (31-37) Red Cell Distribution Width 17.4 % (11.5-14.5) Platelet Count 142 x10^3/uL (140-400) Neutrophils (%) (Auto) 64 % (31-73) Lymphocytes (%) (Auto) 20 % (24-48) Monocytes (%) (Auto) 12 % (0-9) Eosinophils (%) (Auto) 3 % (0-3) Basophils (%) (Auto) 1 % (0-3) Neutrophils # (Auto) 4.2 x10^3/uL (1.8-7.7) Lymphocytes # (Auto) 1.3 x10^3/uL (1.0-4.8) Monocytes # (Auto) 0.8 x10^3/uL (0.0-1.1) Eosinophils # (Auto) 0.2 x10^3/uL (0.0-0.7) Basophils # (Auto) 0.0 x10^3/uL (0.0-0.2) Sodium Level 135 mmol/L (136-145) Potassium Level 4.3 mmol/L (3.5-5.1) Chloride Level 100 mmol/L (98-107) Carbon Dioxide Level 32 mmol/L (21-32) Anion Gap 3 (6-14) Blood Urea Nitrogen 37 mg/dL (8-26) Creatinine 2.0 mg/dL (0.7-1.3) Estimated GFR (Cockcroft-Gault) 35.7 Glucose Level 147 mg/dL (70-99) Calcium Level 9.3 mg/dL (8.5-10.1) Phosphorus Level 3.1 mg/dL (2.6-4.7) Magnesium Level 2.3 mg/dL (1.8-2.4) Albumin 1.9 g/dL (3.4-5.0) Microbiology 09/23/21 Urine Culture - Final, Complete 09/22/21 Blood Culture - Final, Complete NO GROWTH AFTER 5 DAYS Medications Current Medications Clonidine HCl (Catapres Tts-2) 1 patch WEEKLY TD Last administered on 09/27/21at 17:11; Start 09/27/21 at 17:00 Hydralazine HCl (Apresoline Inj) 10 mg PRN Q4HRS PRN IVP ELEVATED BP, SEE COMMENTS Last administered on 09/27/21at 17:12; Start 09/27/21 at 16:45 Multi-Ingredient Ointment (Hydrocerin, Eucerin Cream) 1 jason BID TP Last administered on 09/27/21at 20:43; Start 09/27/21 at 10:30 Piperacillin Sod/ Tazobactam Sod 4.5 gm/Dextrose 100 ml @ 200 mls/hr Q6HRS IV Last administered on 09/28/21at 06:15; Start 09/27/21 at 18:00 Vitals/I & O Vital Sign - Last 24 Hours 09/27/21 09/27/21 09/27/21 09/27/21 09:00 10:00 11:00 11:44 Pulse 71 77 93 Resp B/P (MAP) 150/91 (110) 152/109 (123) 158/82 (107) Pulse Ox 95 96 99 O2 Delivery vapotherm vapotherm vapotherm O2 Flow Rate 30.0 09/27/21 09/27/21 09/27/21 09/27/21 12:00 12:00 12:58 13:00 Temp 97.6 97.6 Pulse 97 101 Resp B/P (MAP) 175/97 (123) 171/98 (122) Pulse Ox 98 98 98 O2 Delivery vapotherm Vapotherm vapotherm vapotherm O2 Flow Rate 30.0 30.0 30.0 09/27/21 09/27/21 09/27/21 09/27/21 14:00 15:00 15:58 16:00 Temp 98.6 98.6 Pulse 98 72 104 Resp B/P (MAP) 192/105 (134) 173/88 (116) 193/97 (129) Pulse Ox 97 96 96 98 O2 Delivery vapotherm vapotherm vapotherm vapotherm O2 Flow Rate 30.0 30.0 30.0 30.0 09/27/21 09/27/21 09/27/21 09/27/21 16:00 17:00 17:01 17:12 Pulse 102 102 Resp B/P (MAP) 176/94 (121) 176/94 Pulse Ox 98 96 O2 Delivery Vapotherm vapotherm vapotherm O2 Flow Rate 30.0 30.0 30.0 09/27/21 09/27/21 09/27/21 09/27/21 18:00 19:00 20:00 20:00 Temp 98.2 98.2 Pulse 102 78 104 Resp B/P (MAP) 157/63 (94) 140/77 (98) 162/89 (113) Pulse Ox 94 96 96 O2 Delivery vapotherm vapotherm vapotherm Bi-pap O2 Flow Rate 30.0 30.0 30.0 09/27/21 09/27/21 09/27/21 09/27/21 21:00 21:01 22:00 23:00 Pulse 100 98 96 Resp B/P (MAP) 166/83 (110) 171/83 (112) 167/80 (109) Pulse Ox 98 96 98 98 O2 Delivery vapotherm BiPAP/CPAP vapotherm vapotherm O2 Flow Rate 30.0 30.0 30.0 09/27/21 09/28/21 09/28/21 09/28/21 23:30 00:00 00:00 01:00 Temp 98.3 98.3 Pulse 97 99 Resp B/P (MAP) 177/96 (123) 170/95 (120) Pulse Ox 96 97 97 O2 Delivery BiPAP/CPAP vapotherm Bi-pap vapotherm O2 Flow Rate 30.0 30.0 09/28/21 09/28/21 09/28/21 09/28/21 02:00 02:30 03:00 04:00 Temp 98.5 98.5 Pulse 96 100 98 Resp B/P (MAP) 174/93 (120) 176/98 (124) 177/96 (123) Pulse Ox 98 96 98 97 O2 Delivery vapotherm vapotherm vapotherm vapotherm O2 Flow Rate 30.0 30.0 30.0 30.0 09/28/21 09/28/21 09/28/21 09/28/21 04:00 05:00 05:30 06:00 Pulse 96 98 Resp 20 20 B/P (MAP) 198/106 (136) 180/92 (121) Pulse Ox 97 96 97 O2 Delivery Bi-pap vapotherm vapotherm vapotherm O2 Flow Rate 30.0 30.0 30.0 09/28/21 09/28/21 09/28/21 09/28/21 07:00 07:35 08:00 08:00 Temp 98.3 98.3 Pulse 96 65 Resp 15 20 B/P (MAP) 183/93 (123) 165/85 (111) Pulse Ox 97 98 97 O2 Delivery vapotherm VAPOTHERM vapotherm Bi-pap O2 Flow Rate 30.0 30.0 30.0 Intake and Output 09/27/21 09/27/21 09/28/21 15:00 23:00 07:00 Intake Total 480 ml Output Total 450 ml 625 ml 775 ml Balance 30 ml -625 ml -775 ml Justifications for Admission Other Justification ANT LICEA MD Sep 28, 2021 09:02
--- NOTE | 2021-09-28 09:58 | PDOC ---
PROGRESS NOTES Date of Service DATE: 09/28/21 TIME: 09:56 Subjective Subjective No new complaints. Objective Objective Vital Signs Date Time Temp Pulse Resp B/P (MAP) Pulse Ox O2 Delivery O2 Flow Rate FiO2 09/28/21 09:00 72 17 175/83 (113) 97 vapotherm 30.0 09/28/21 08:00 98.3 98.3 Intake and Output 09/28/21 07:00 Intake Total 480 ml Output Total 1850 ml Balance -1370 ml Intake Oral 480 ml Output Urine Total 1850 ml Physical Exam Physical Exam He is resting supine in bed with oxygen by nasal canula and head end of bed propped up and he continues to get up with physical therapy but low physical endurance. Assessment Assessment Problems Medical Problems: (1) Acute on chronic respiratory failure with hypoxia and hypercapnia Status: Acute (2) Community acquired pneumonia Status: Acute Plan Plan of Care To ask for rehab or LTAC unit screen. Comment Review of Relevant I have reviewed the following items adolfo (where applicable) has been applied. Labs Laboratory Tests Test 09/26/21 15:18 09/26/21 18:32 09/27/21 04:30 09/27/21 04:50 Glucose (Fingerstick) 135 mg/dL (70-99) 114 mg/dL (70-99) 137 mg/dL (70-99) White Blood Count 7.2 x10^3/uL (4.0-11.0) Red Blood Count 4.73 x10^6/uL (4.30-5.70) Hemoglobin 12.5 g/dL (13.0-17.5) Hematocrit 39.5 % (39.0-53.0) Mean Corpuscular Volume 84 fL (79-100) Mean Corpuscular Hemoglobin 27 pg (25-35) Mean Corpuscular Hemoglobin Concent 32 g/dL (31-37) Red Cell Distribution Width 17.1 % (11.5-14.5) Platelet Count 141 x10^3/uL (140-400) Neutrophils (%) (Auto) 68 % (31-73) Lymphocytes (%) (Auto) 18 % (24-48) Monocytes (%) (Auto) 11 % (0-9) Eosinophils (%) (Auto) 3 % (0-3) Basophils (%) (Auto) 1 % (0-3) Neutrophils # (Auto) 4.9 x10^3/uL (1.8-7.7) Lymphocytes # (Auto) 1.3 x10^3/uL (1.0-4.8) Monocytes # (Auto) 0.8 x10^3/uL (0.0-1.1) Eosinophils # (Auto) 0.2 x10^3/uL (0.0-0.7) Basophils # (Auto) 0.1 x10^3/uL (0.0-0.2) Sodium Level 135 mmol/L (136-145) Potassium Level 4.4 mmol/L (3.5-5.1) Chloride Level 98 mmol/L (98-107) Carbon Dioxide Level 32 mmol/L (21-32) Anion Gap 5 (6-14) Blood Urea Nitrogen 41 mg/dL (8-26) Creatinine 2.2 mg/dL (0.7-1.3) Estimated GFR (Cockcroft-Gault) 32.0 Glucose Level 143 mg/dL (70-99) Calcium Level 9.0 mg/dL (8.5-10.1) Phosphorus Level 3.2 mg/dL (2.6-4.7) Magnesium Level 2.3 mg/dL (1.8-2.4) Troponin I High Sensitivity 11 ng/L (4-75) Albumin 1.9 g/dL (3.4-5.0) Test 09/27/21 08:30 09/27/21 08:40 09/27/21 12:10 09/27/21 17:10 Urine Collection Type Unknown Urine Color (Auto) Light yellow Urine Turbidity Turbid Urine pH (Auto) 5.5 (<5.0-8.0) Urine Specific [place] 1.017 (1.000-1.030) Urine Protein (Auto) 50 mg/dL (Negative) Urine Glucose (Auto)(UA) Negative mg/dL (Negative) Urine Ketones (Auto) Trace mg/dL (Negative) Urine Blood (Auto) Large (Negative) Urine Nitrite (Auto) Negative (Negative) Urine Bilirubin (Auto) Negative (Negative) Urine Urobilinogen (Auto) Normal mg/dL (Normal) Urine Leukocyte Esterase (Auto) Small (Negative) Urine RBC 11-20 /HPF (0-2) Urine WBC 0 /HPF (0-4) Urine Squamous Epithelial Cells None /LPF Urine Bacteria 0 /HPF (0-FEW) Glucose (Fingerstick) 116 mg/dL (70-99) 177 mg/dL (70-99) 143 mg/dL (70-99) Test 09/28/21 04:00 White Blood Count 6.5 x10^3/uL (4.0-11.0) Red Blood Count 4.80 x10^6/uL (4.30-5.70) Hemoglobin 12.6 g/dL (13.0-17.5) Hematocrit 40.2 % (39.0-53.0) Mean Corpuscular Volume 84 fL (79-100) Mean Corpuscular Hemoglobin 26 pg (25-35) Mean Corpuscular Hemoglobin Concent 31 g/dL (31-37) Red Cell Distribution Width 17.4 % (11.5-14.5) Platelet Count 142 x10^3/uL (140-400) Neutrophils (%) (Auto) 64 % (31-73) Lymphocytes (%) (Auto) 20 % (24-48) Monocytes (%) (Auto) 12 % (0-9) Eosinophils (%) (Auto) 3 % (0-3) Basophils (%) (Auto) 1 % (0-3) Neutrophils # (Auto) 4.2 x10^3/uL (1.8-7.7) Lymphocytes # (Auto) 1.3 x10^3/uL (1.0-4.8) Monocytes # (Auto) 0.8 x10^3/uL (0.0-1.1) Eosinophils # (Auto) 0.2 x10^3/uL (0.0-0.7) Basophils # (Auto) 0.0 x10^3/uL (0.0-0.2) Sodium Level 135 mmol/L (136-145) Potassium Level 4.3 mmol/L (3.5-5.1) Chloride Level 100 mmol/L (98-107) Carbon Dioxide Level 32 mmol/L (21-32) Anion Gap 3 (6-14) Blood Urea Nitrogen 37 mg/dL (8-26) Creatinine 2.0 mg/dL (0.7-1.3) Estimated GFR (Cockcroft-Gault) 35.7 Glucose Level 147 mg/dL (70-99) Calcium Level 9.3 mg/dL (8.5-10.1) Phosphorus Level 3.1 mg/dL (2.6-4.7) Magnesium Level 2.3 mg/dL (1.8-2.4) Albumin 1.9 g/dL (3.4-5.0) Laboratory Tests Test 09/27/21 12:10 09/27/21 17:10 09/28/21 04:00 Glucose (Fingerstick) 177 mg/dL (70-99) 143 mg/dL (70-99) White Blood Count 6.5 x10^3/uL (4.0-11.0) Red Blood Count 4.80 x10^6/uL (4.30-5.70) Hemoglobin 12.6 g/dL (13.0-17.5) Hematocrit 40.2 % (39.0-53.0) Mean Corpuscular Volume 84 fL (79-100) Mean Corpuscular Hemoglobin 26 pg (25-35) Mean Corpuscular Hemoglobin Concent 31 g/dL (31-37) Red Cell Distribution Width 17.4 % (11.5-14.5) Platelet Count 142 x10^3/uL (140-400) Neutrophils (%) (Auto) 64 % (31-73) Lymphocytes (%) (Auto) 20 % (24-48) Monocytes (%) (Auto) 12 % (0-9) Eosinophils (%) (Auto) 3 % (0-3) Basophils (%) (Auto) 1 % (0-3) Neutrophils # (Auto) 4.2 x10^3/uL (1.8-7.7) Lymphocytes # (Auto) 1.3 x10^3/uL (1.0-4.8) Monocytes # (Auto) 0.8 x10^3/uL (0.0-1.1) Eosinophils # (Auto) 0.2 x10^3/uL (0.0-0.7) Basophils # (Auto) 0.0 x10^3/uL (0.0-0.2) Sodium Level 135 mmol/L (136-145) Potassium Level 4.3 mmol/L (3.5-5.1) Chloride Level 100 mmol/L (98-107) Carbon Dioxide Level 32 mmol/L (21-32) Anion Gap 3 (6-14) Blood Urea Nitrogen 37 mg/dL (8-26) Creatinine 2.0 mg/dL (0.7-1.3) Estimated GFR (Cockcroft-Gault) 35.7 Glucose Level 147 mg/dL (70-99) Calcium Level 9.3 mg/dL (8.5-10.1) Phosphorus Level 3.1 mg/dL (2.6-4.7) Magnesium Level 2.3 mg/dL (1.8-2.4) Albumin 1.9 g/dL (3.4-5.0) Microbiology 09/23/21 Urine Culture - Final, Complete 09/22/21 Blood Culture - Final, Complete NO GROWTH AFTER 5 DAYS Medications Current Medications Acetaminophen (Tylenol) 1,000 mg 1X ONCE PO Last administered on 09/23/21at 00:12; Start 09/22/21 at 22:30; Stop 09/22/21 at 22:31; Status DC Sodium Chloride 1,000 ml @ 1,000 mls/hr 1X ONCE IV ; Start 09/22/21 at 22:30; Stop 09/22/21 at 23:29; Status DC Albuterol/ Ipratropium (Duoneb) 3 ml 1X ONCE NEB Last administered on 09/22/21at 22:05; Start 09/22/21 at 22:30; Stop 09/22/21 at 22:31; Status DC Doxycycline Hyclate 100 mg/ Dextrose 100 ml @ 50 mls/hr 1X ONCE IV ; Start 09/22/21 at 23:30; Stop 09/23/21 at 01:29; Status DC Ceftriaxone Sodium (Rocephin) 2 gm 1X ONCE IVP Last administered on 09/23/21at 00:11; Start 09/22/21 at 23:30; Stop 09/22/21 at 23:31; Status DC Ondansetron HCl (Zofran) 4 mg PRN Q8HRS PRN IVP NAUSEA/VOMITING 1ST CHOICE Last administered on 09/23/21at 22:55; Start 09/22/21 at 23:15; Stop 09/23/21 at 23:14; Status DC Fentanyl Citrate (Fentanyl 2ml Vial) 50 mcg PRN Q1HR PRN IVP SEVERE PAIN 7-10; Start 09/22/21 at 23:15; Stop 09/23/21 at 23:14; Status DC Acetaminophen (Tylenol) 650 mg PRN Q4HRS PRN PO FEVER > 100.3'F Last administered on 09/23/21at 23:04; Start 09/22/21 at 23:15; Stop 09/23/21 at 23:14; Status DC Albuterol Sulfate (Ventolin Neb Soln) 2.5 mg PRN Q4HRS PRN NEB SHORTNESS OF BREATH; Start 09/22/21 at 23:30 Sodium Chloride 1,000 ml @ 125 mls/hr 1X ONCE IV ; Start 09/22/21 at 23:15; Stop 09/23/21 at 07:14; Status DC Norepinephrine Bitartrate 8 mg/ Dextrose 258 ml @ 40.442 mls/ hr CONT PRN IV PER PROTOCOL Last administered on 09/25/21at 05:27; Start 09/23/21 at 01:45 Sodium Chloride 1,000 ml @ 75 mls/hr [id number] IV Last administered on 09/28/21at 06:14; Start 09/23/21 at 02:15 Piperacillin Sod/ Tazobactam Sod (Zosyn Per Pharmacy) 1 each PRN DAILY PRN MC SEE COMMENTS; Start 09/23/21 at 08:45 Piperacillin Sod/ Tazobactam Sod 3.375 gm/Sodium Chloride 50 ml @ 100 mls/hr Q6HRS IV Last administered on 09/27/21at 12:14; Start 09/23/21 at 09:00; Stop 09/27/21 at 13:11; Status DC Enoxaparin Sodium (Lovenox Per Pharmacy Prophylaxis Dosing) 1 each PRN DAILY PRN MC SEE COMMENTS; Start 09/23/21 at 09:00 Enoxaparin Sodium (Lovenox 60mg Syringe) 60 mg Q12HR SQ Last administered on 09/28/21at 09:01; Start 09/23/21 at 09:00 Daptomycin 760 mg/ Sodium Chloride 50 ml @ 100 mls/hr Q24H IV Last administered on 09/25/21at 16:42; Start 09/23/21 at 16:00; Stop 09/26/21 at 12:32; Status DC Insulin Human Lispro (HumaLOG) 0-5 UNITS TIDWMEALS SQ Last administered on 09/27/21at 12:13; Start 09/23/21 at 12:00 Dextrose (Dextrose 50%-Water Syringe) 12.5 gm PRN Q15MIN PRN IV SEE COMMENTS; Start 09/23/21 at 09:15 Sterile Water (WATER for RESP) 2,000 ml CONT PRN INH VIA VAPOTHERM DEVICE Last administered on 09/27/21at 01:35; Start 09/23/21 at 15:30 Magnesium Sulfate 3 gm/Dextrose 106 ml @ 35.333 mls/ hr 1X ONCE IV ; Start 09/23/21 at 15:45; Stop 09/23/21 at 18:44; Status UNV Magnesium Sulfate 50 ml @ 25 mls/hr 1X ONCE IV Last administered on 09/23/21at 19:52; Start 09/23/21 at 16:00; Stop 09/23/21 at 17:59; Status DC Magnesium Sulfate/ Dextrose 100 ml @ 100 mls/hr 1X ONCE IV Last administered on 09/23/21at 16:36; Start 09/23/21 at 18:00; Stop 09/23/21 at 18:59; Status DC Acetaminophen (Tylenol) 650 mg 1X ONCE PO Last administered on 09/24/21at 20:13; Start 09/24/21 at 21:00; Stop 09/24/21 at 21:01; Status DC Magnesium Sulfate 50 ml @ 25 mls/hr PRN DAILY PRN IV for Mag < 1.7 on am labs; Start 09/25/21 at 12:00 Acetaminophen (Tylenol) 650 mg PRN Q6HRS PRN PO MILD PAIN / TEMP > 100.3'F Last administered on 09/28/21at 03:26; Start 09/25/21 at 12:30 Linezolid (Zyvox) 600 mg BID PO Last administered on 09/28/21at 09:01; Start 09/25/21 at 18:00 Multi-Ingredient Ointment (Hydrocerin, Eucerin Cream) 1 jason BID TP Last administered on 09/28/21at 09:02; Start 09/27/21 at 10:30 Piperacillin Sod/ Tazobactam Sod 4.5 gm/Dextrose 100 ml @ 200 mls/hr Q6HRS IV Last administered on 09/28/21at 08:58; Start 09/27/21 at 18:00 Hydralazine HCl (Apresoline Inj) 10 mg PRN Q4HRS PRN IVP ELEVATED BP, SEE COMMENTS Last administered on 09/27/21at 17:12; Start 09/27/21 at 16:45 Clonidine HCl (Catapres Tts-2) 1 patch WEEKLY TD Last administered on 09/27/21at 17:11; Start 09/27/21 at 17:00 Active Scripts Active Benzonatate 200 Mg Capsule 1 Cap PO PRN TID PRN Ventolin Hfa Inhaler (Albuterol Sulfate) 18 Gm Hfa.aer.ad 2 Puff INH Q4HRS Doxycycline Hyclate 100 Mg Capsule 1 Cap PO BID 7 Days Bumetanide 2 Mg Tablet 2 Mg PO BID 30 Days Aspirin Ec (Aspirin) 325 Mg Tablet.dr 325 Mg PO DAILYWBKFT 30 Days [Fluconazole] 100 MG Tablet 400 Mg PO DAILY 10 Days Hydralazine Hcl 50 Mg Tablet 50 Mg PO TID 90 Days K-Tab ER (Potassium Chloride) 20 Meq Tablet.er 20 Meq PO BID 30 Days Reported [Albuterol] Jardiance (Empagliflozin) 25 Mg Tablet 1 Tab PO DAILY One-A-Day Essential (Multivitamin) 1 Each Tablet 1 Tab PO DAILY 30 Days Metformin Hcl 500 Mg Tablet 2 Tab PO BIDWMEALS Carvedilol (Carvedilol) 12.5 Mg Tablet 2 Tab PO BIDWMEALS Lisinopril 20 Mg Tablet 1 Tab PO DAILY Vitals/I & O Vital Sign - Last 24 Hours 09/27/21 09/27/21 09/27/21 09/27/21 10:00 11:00 11:44 12:00 Temp 97.6 97.6 Pulse 77 93 97 Resp 20 21 21 B/P (MAP) 152/109 (123) 158/82 (107) 175/97 (123) Pulse Ox 95 96 99 98 O2 Delivery vapotherm vapotherm vapotherm vapotherm O2 Flow Rate 30.0 09/27/21 09/27/21 09/27/21 09/27/21 12:00 12:58 13:00 14:00 Pulse 101 98 Resp 22 21 B/P (MAP) 171/98 (122) 192/105 (134) Pulse Ox 98 98 97 O2 Delivery Vapotherm vapotherm vapotherm vapotherm O2 Flow Rate 30.0 30.0 30.0 30.0 09/27/21 09/27/21 09/27/21 09/27/21 15:00 15:58 16:00 16:00 Temp 98.6 98.6 Pulse 72 104 Resp B/P (MAP) 173/88 (116) 193/97 (129) Pulse Ox 96 96 98 O2 Delivery vapotherm vapotherm vapotherm Vapotherm O2 Flow Rate 30.0 30.0 30.0 30.0 09/27/21 09/27/21 09/27/21 09/27/21 17:00 17:01 17:12 18:00 Pulse 102 102 102 Resp B/P (MAP) 176/94 (121) 176/94 157/63 (94) Pulse Ox 98 96 94 O2 Delivery vapotherm vapotherm vapotherm O2 Flow Rate 30.0 30.0 30.0 09/27/21 09/27/21 09/27/21 09/27/21 19:00 20:00 20:00 21:00 Temp 98.2 98.2 Pulse 78 104 100 Resp B/P (MAP) 140/77 (98) 162/89 (113) 166/83 (110) Pulse Ox 96 96 98 O2 Delivery vapotherm vapotherm Bi-pap vapotherm O2 Flow Rate 30.0 30.0 30.0 09/27/21 09/27/21 09/27/21 09/27/21 21:01 22:00 23:00 23:30 Pulse 98 96 Resp B/P (MAP) 171/83 (112) 167/80 (109) Pulse Ox 96 98 98 96 O2 Delivery BiPAP/CPAP vapotherm vapotherm BiPAP/CPAP O2 Flow Rate 30.0 30.0 09/28/21 09/28/21 09/28/21 09/28/21 00:00 00:00 01:00 02:00 Temp 98.3 98.3 Pulse 97 99 96 Resp B/P (MAP) 177/96 (123) 170/95 (120) 174/93 (120) Pulse Ox 97 97 98 O2 Delivery vapotherm Bi-pap vapotherm vapotherm O2 Flow Rate 30.0 30.0 30.0 09/28/21 09/28/21 09/28/21 09/28/21 02:30 03:00 04:00 04:00 Temp 98.5 98.5 Pulse 100 98 Resp 20 22 B/P (MAP) 176/98 (124) 177/96 (123) Pulse Ox 96 98 97 O2 Delivery vapotherm vapotherm vapotherm Bi-pap O2 Flow Rate 30.0 30.0 30.0 09/28/21 09/28/21 09/28/21 09/28/21 05:00 05:30 06:00 07:00 Pulse 96 98 96 Resp 20 20 15 B/P (MAP) 198/106 (136) 180/92 (121) 183/93 (123) Pulse Ox 97 96 97 97 O2 Delivery vapotherm vapotherm vapotherm vapotherm O2 Flow Rate 30.0 30.0 30.0 30.0 09/28/21 09/28/21 09/28/21 09/28/21 07:35 08:00 08:00 09:00 Temp 98.3 98.3 Pulse 65 72 Resp 20 17 B/P (MAP) 165/85 (111) 175/83 (113) Pulse Ox 98 97 97 O2 Delivery VAPOTHERM vapotherm Bi-pap vapotherm O2 Flow Rate 30.0 30.0 30.0 Intake and Output 09/27/21 09/27/21 09/28/21 15:00 23:00 07:00 Intake Total 480 ml Output Total 450 ml 625 ml 775 ml Balance 30 ml -625 ml -775 ml Justifications for Admission Other Justification RAMYA LIRA MD Sep 28, 2021 09:58
--- NOTE | 2021-09-28 10:21 | PDOC ---
PULMONARY PROGRESS NOTES DATE: 09/28/21 TIME: 10:18 Subjective Patient currently on Vapotherm at 70% FiO2. Denies any shortness of breath Vitals Vital Signs Date Time Temp Pulse Resp B/P (MAP) Pulse Ox O2 Delivery O2 Flow Rate FiO2 09/28/21 09:00 72 17 175/83 (113) 97 vapotherm 30.0 09/28/21 08:00 98.3 98.3 ROS: No Nausea, No Chest Pain, No Abdominal Pain, No Increase Cough General: Alert, No acute distress Lungs: Clear Cardiovascular: S1, S2 Abdomen: Soft, Non-tender, Other (Obese) Neuro Exam: Alert Extremities: Other (Decrease edema) Skin: Warm Labs Laboratory Tests Test 09/26/21 15:18 09/26/21 18:32 09/27/21 04:30 09/27/21 04:50 Glucose (Fingerstick) 135 mg/dL (70-99) 114 mg/dL (70-99) 137 mg/dL (70-99) White Blood Count 7.2 x10^3/uL (4.0-11.0) Red Blood Count 4.73 x10^6/uL (4.30-5.70) Hemoglobin 12.5 g/dL (13.0-17.5) Hematocrit 39.5 % (39.0-53.0) Mean Corpuscular Volume 84 fL (79-100) Mean Corpuscular Hemoglobin 27 pg (25-35) Mean Corpuscular Hemoglobin Concent 32 g/dL (31-37) Red Cell Distribution Width 17.1 % (11.5-14.5) Platelet Count 141 x10^3/uL (140-400) Neutrophils (%) (Auto) 68 % (31-73) Lymphocytes (%) (Auto) 18 % (24-48) Monocytes (%) (Auto) 11 % (0-9) Eosinophils (%) (Auto) 3 % (0-3) Basophils (%) (Auto) 1 % (0-3) Neutrophils # (Auto) 4.9 x10^3/uL (1.8-7.7) Lymphocytes # (Auto) 1.3 x10^3/uL (1.0-4.8) Monocytes # (Auto) 0.8 x10^3/uL (0.0-1.1) Eosinophils # (Auto) 0.2 x10^3/uL (0.0-0.7) Basophils # (Auto) 0.1 x10^3/uL (0.0-0.2) Sodium Level 135 mmol/L (136-145) Potassium Level 4.4 mmol/L (3.5-5.1) Chloride Level 98 mmol/L (98-107) Carbon Dioxide Level 32 mmol/L (21-32) Anion Gap 5 (6-14) Blood Urea Nitrogen 41 mg/dL (8-26) Creatinine 2.2 mg/dL (0.7-1.3) Estimated GFR (Cockcroft-Gault) 32.0 Glucose Level 143 mg/dL (70-99) Calcium Level 9.0 mg/dL (8.5-10.1) Phosphorus Level 3.2 mg/dL (2.6-4.7) Magnesium Level 2.3 mg/dL (1.8-2.4) Troponin I High Sensitivity 11 ng/L (4-75) Albumin 1.9 g/dL (3.4-5.0) Test 09/27/21 08:30 09/27/21 08:40 09/27/21 12:10 09/27/21 17:10 Urine Collection Type Unknown Urine Color (Auto) Light yellow Urine Turbidity Turbid Urine pH (Auto) 5.5 (<5.0-8.0) Urine Specific Baker 1.017 (1.000-1.030) Urine Protein (Auto) 50 mg/dL (Negative) Urine Glucose (Auto)(UA) Negative mg/dL (Negative) Urine Ketones (Auto) Trace mg/dL (Negative) Urine Blood (Auto) Large (Negative) Urine Nitrite (Auto) Negative (Negative) Urine Bilirubin (Auto) Negative (Negative) Urine Urobilinogen (Auto) Normal mg/dL (Normal) Urine Leukocyte Esterase (Auto) Small (Negative) Urine RBC 11-20 /HPF (0-2) Urine WBC 0 /HPF (0-4) Urine Squamous Epithelial Cells None /LPF Urine Bacteria 0 /HPF (0-FEW) Glucose (Fingerstick) 116 mg/dL (70-99) 177 mg/dL (70-99) 143 mg/dL (70-99) Test 09/28/21 04:00 White Blood Count 6.5 x10^3/uL (4.0-11.0) Red Blood Count 4.80 x10^6/uL (4.30-5.70) Hemoglobin 12.6 g/dL (13.0-17.5) Hematocrit 40.2 % (39.0-53.0) Mean Corpuscular Volume 84 fL (79-100) Mean Corpuscular Hemoglobin 26 pg (25-35) Mean Corpuscular Hemoglobin Concent 31 g/dL (31-37) Red Cell Distribution Width 17.4 % (11.5-14.5) Platelet Count 142 x10^3/uL (140-400) Neutrophils (%) (Auto) 64 % (31-73) Lymphocytes (%) (Auto) 20 % (24-48) Monocytes (%) (Auto) 12 % (0-9) Eosinophils (%) (Auto) 3 % (0-3) Basophils (%) (Auto) 1 % (0-3) Neutrophils # (Auto) 4.2 x10^3/uL (1.8-7.7) Lymphocytes # (Auto) 1.3 x10^3/uL (1.0-4.8) Monocytes # (Auto) 0.8 x10^3/uL (0.0-1.1) Eosinophils # (Auto) 0.2 x10^3/uL (0.0-0.7) Basophils # (Auto) 0.0 x10^3/uL (0.0-0.2) Sodium Level 135 mmol/L (136-145) Potassium Level 4.3 mmol/L (3.5-5.1) Chloride Level 100 mmol/L (98-107) Carbon Dioxide Level 32 mmol/L (21-32) Anion Gap 3 (6-14) Blood Urea Nitrogen 37 mg/dL (8-26) Creatinine 2.0 mg/dL (0.7-1.3) Estimated GFR (Cockcroft-Gault) 35.7 Glucose Level 147 mg/dL (70-99) Calcium Level 9.3 mg/dL (8.5-10.1) Phosphorus Level 3.1 mg/dL (2.6-4.7) Magnesium Level 2.3 mg/dL (1.8-2.4) Albumin 1.9 g/dL (3.4-5.0) Laboratory Tests Test 09/27/21 12:10 09/27/21 17:10 09/28/21 04:00 Glucose (Fingerstick) 177 mg/dL (70-99) 143 mg/dL (70-99) White Blood Count 6.5 x10^3/uL (4.0-11.0) Red Blood Count 4.80 x10^6/uL (4.30-5.70) Hemoglobin 12.6 g/dL (13.0-17.5) Hematocrit 40.2 % (39.0-53.0) Mean Corpuscular Volume 84 fL (79-100) Mean Corpuscular Hemoglobin 26 pg (25-35) Mean Corpuscular Hemoglobin Concent 31 g/dL (31-37) Red Cell Distribution Width 17.4 % (11.5-14.5) Platelet Count 142 x10^3/uL (140-400) Neutrophils (%) (Auto) 64 % (31-73) Lymphocytes (%) (Auto) 20 % (24-48) Monocytes (%) (Auto) 12 % (0-9) Eosinophils (%) (Auto) 3 % (0-3) Basophils (%) (Auto) 1 % (0-3) Neutrophils # (Auto) 4.2 x10^3/uL (1.8-7.7) Lymphocytes # (Auto) 1.3 x10^3/uL (1.0-4.8) Monocytes # (Auto) 0.8 x10^3/uL (0.0-1.1) Eosinophils # (Auto) 0.2 x10^3/uL (0.0-0.7) Basophils # (Auto) 0.0 x10^3/uL (0.0-0.2) Sodium Level 135 mmol/L (136-145) Potassium Level 4.3 mmol/L (3.5-5.1) Chloride Level 100 mmol/L (98-107) Carbon Dioxide Level 32 mmol/L (21-32) Anion Gap 3 (6-14) Blood Urea Nitrogen 37 mg/dL (8-26) Creatinine 2.0 mg/dL (0.7-1.3) Estimated GFR (Cockcroft-Gault) 35.7 Glucose Level 147 mg/dL (70-99) Calcium Level 9.3 mg/dL (8.5-10.1) Phosphorus Level 3.1 mg/dL (2.6-4.7) Magnesium Level 2.3 mg/dL (1.8-2.4) Albumin 1.9 g/dL (3.4-5.0) Medications Active Scripts Medications Dose Route/Sig Max Daily Dose Days Date Category [Albuterol] 09/23/21 Reported Jardiance (Empagliflozin) 25 Mg Tablet 1 Tab PO DAILY 09/23/21 Reported Benzonatate 200 Mg Capsule 1 Cap PO PRN TID PRN 08/19/21 Rx Ventolin Hfa Inhaler (Albuterol Sulfate) 18 Gm Hfa.aer.ad 2 Puff INH Q4HRS 08/19/21 Rx Doxycycline Hyclate 100 Mg Capsule 1 Cap PO BID 7 08/19/21 Rx Bumetanide 2 Mg Tablet 2 Mg PO BID 30 02/04/20 Rx Aspirin Ec (Aspirin) 325 Mg Tablet.dr 325 Mg PO DAILYWBKFT 30 02/04/20 Rx [Fluconazole] 100 MG Tablet 400 Mg PO DAILY 10 08/19/19 Rx Hydralazine Hcl 50 Mg Tablet 50 Mg PO TID 90 08/19/19 Rx K-Tab ER (Potassium Chloride) 20 Meq Tablet.er 20 Meq PO BID 30 08/19/19 Rx One-A-Day Essential (Multivitamin) 1 Each Tablet 1 Tab PO DAILY 30 08/15/19 Reported Metformin Hcl 500 Mg Tablet 2 Tab PO BIDWMEALS 08/15/19 Reported Carvedilol (Carvedilol) 12.5 Mg Tablet 2 Tab PO BIDWMEALS 08/15/19 Reported Lisinopril 20 Mg Tablet 1 Tab PO DAILY 08/15/19 Reported Impression . IMPRESSION: 1. Acute on chronic hypoxemic hypercapnic respiratory failure. 2. Sepsis. 3. Fever related to the above. 4. Marked leukocytosis. 5. Morbid obesity. 6. Acute on chronic renal insufficiency. 7. Lactic acidosis. 8. Protein malnutrition present upon admission. 9. Rapid test for SARS-CoV-2 negative. Plan . Updated 09/28 Discussed with RT, titrate Vapotherm down. Will wean FiO2 keep saturations 92% and above. Nightly BiPAP Antibiotics per ID Follow-up on cultures Advance diet Bronchodilators DVT prophylaxis CT chest reviewed. There is right lower lobe atelectasis likely caused by mucous plug. Discussed with Dr. LICEA. Clinically high risk for bronchoscopy at present due to high oxygen requirements. Once clinically improve will consider bronchoscopy. This can be done as an outpatient as well. JAMES MONSON MD Sep 28, 2021 10:21
--- NOTE | 2021-09-28 10:57 | PDOC ---
DATE OF SERVICE DATE: 09/28/21 TIME: 10:54 SUBJECTIVE ROS Currently on o2 by NC No complaints, stable. No Overnight concerns per RN OBJECTIVE Vital Signs Vital Signs Date Time Temp Pulse Resp B/P (MAP) Pulse Ox O2 Delivery O2 Flow Rate FiO2 09/28/21 10:00 70 16 169/88 (115) 97 vapotherm 30.0 09/28/21 08:00 98.3 98.3 I & 0 Intake and Output 09/28/21 07:00 Intake Total 480 ml Output Total 1850 ml Balance -1370 ml Intake Oral 480 ml Output Urine Total 1850 ml PHYSICAL EXAM Physical Exam GENERAL: not in distress.Morbidly obese HEENT: Both pupils are round and reacting. No conjunctival lesion, OM moist NECK: Supple, no JVP, no lymphadenopathy. LUNGS: Clear.non labored HEART: S1, S2, regular. ABDOMEN: Soft, nontender, no organomegaly.Obese EXTREMITIES: No edema or cyanosis. Chronic changes present in the legs. NEUROLOGIC: No focal neurologic deficit [place] in place , No CVA or SP tenderness DERM No Rash DIAGNOSIS/ASSESSMENT Assessment & Plan ADINA - ATN/Vomiting /Hypotension /Sepsis , Non Oliguric .Creat trending down maintain fluid balance. DC IVF Supportive care, avoid nephrotoxins, I/O . 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 Fever / Sepsis/ Marked leukocytosis. Renal Cyst - 2.2 cm hypodense exophytic left renal lesion, likely a simple or minimally complicated cyst. COPD Morbid obesity. COMMENT/RELEVANT DATA Meds Current Medications Medications (Trade) Dose Ordered Sig/Michelle Start Time Stop Time Status Last Admin Dose Admin Acetaminophen (Tylenol) 650 mg PRN Q6HRS PRN 09/25/21 12:30 09/28/21 03:26 650 MG Albuterol Sulfate (Ventolin Neb Soln) 2.5 mg PRN Q4HRS PRN 09/22/21 23:30 Albuterol/ Ipratropium (Duoneb) 3 ml 1X ONCE 09/22/21 22:30 09/22/21 22:31 DC 09/22/21 22:05 3 ML Ceftriaxone Sodium (Rocephin) 2 gm 1X ONCE 09/22/21 23:30 09/22/21 23:31 DC 09/23/21 00:11 2 GM Clonidine HCl (Catapres Tts-2) 1 patch WEEKLY 09/27/21 17:00 09/27/21 17:11 1 PATCH Daptomycin 760 mg/ Sodium Chloride 50 ml @ 100 mls/hr Q24H 09/23/21 16:00 09/26/21 12:32 DC 09/25/21 16:42 100 MLS/HR Dextrose (Dextrose 50%-Water Syringe) 12.5 gm PRN Q15MIN PRN 09/23/21 09:15 Doxycycline Hyclate 100 mg/ Dextrose 100 ml @ 50 mls/hr 1X ONCE 09/22/21 23:30 09/23/21 01:29 DC Enoxaparin Sodium (Lovenox 60mg Syringe) 60 mg Q12HR 09/23/21 09:00 09/28/21 09:01 60 MG Enoxaparin Sodium (Lovenox Per Pharmacy Prophylaxis Dosing) 1 each PRN DAILY PRN 09/23/21 09:00 Fentanyl Citrate (Fentanyl 2ml Vial) 50 mcg PRN Q1HR PRN 09/22/21 23:15 09/23/21 23:14 DC Hydralazine HCl (Apresoline Inj) 10 mg PRN Q4HRS PRN 09/27/21 16:45 09/27/21 17:12 10 MG Insulin Human Lispro (HumaLOG) 0-5 UNITS TIDWMEALS 09/23/21 12:00 09/27/21 12:13 2 UNITS Linezolid (Zyvox) 600 mg BID 09/25/21 18:00 09/28/21 09:01 600 MG Magnesium Sulfate 50 ml @ 25 mls/hr PRN DAILY PRN 09/25/21 12:00 Magnesium Sulfate 3 gm/Dextrose 106 ml @ 35.333 mls/ hr 1X ONCE 09/23/21 15:45 09/23/21 18:44 UNV Magnesium Sulfate/ Dextrose 100 ml @ 100 mls/hr 1X ONCE 09/23/21 18:00 09/23/21 18:59 DC 09/23/21 16:36 100 MLS/HR Multi-Ingredient Ointment (Hydrocerin, Eucerin Cream) 1 jason BID 09/27/21 10:30 09/28/21 09:02 1 JASON Norepinephrine Bitartrate 8 mg/ Dextrose 258 ml @ 40.442 mls/ hr CONT PRN 09/23/21 01:45 09/25/21 05:27 40.442 MLS/HR Ondansetron HCl (Zofran) 4 mg PRN Q8HRS PRN 09/22/21 23:15 09/23/21 23:14 DC 09/23/21 22:55 4 MG Piperacillin Sod/ Tazobactam Sod (Zosyn Per Pharmacy) 1 each PRN DAILY PRN 09/23/21 08:45 Piperacillin Sod/ Tazobactam Sod 3.375 gm/Sodium Chloride 50 ml @ 100 mls/hr Q6HRS 09/23/21 09:00 09/27/21 13:11 DC 09/27/21 12:14 100 MLS/HR Piperacillin Sod/ Tazobactam Sod 4.5 gm/Dextrose 100 ml @ 200 mls/hr Q6HRS 09/27/21 18:00 09/28/21 08:58 200 MLS/HR Sodium Chloride 1,000 ml @ 75 mls/hr [id number] 09/23/21 02:15 09/28/21 10:49 DC 09/28/21 06:14 75 MLS/HR Sterile Water (WATER for RESP) 2,000 ml CONT PRN 09/23/21 15:30 09/27/21 01:35 2,000 ML Lab Laboratory Tests Test 09/27/21 12:10 09/27/21 17:10 09/28/21 04:00 Glucose (Fingerstick) 177 mg/dL (70-99) 143 mg/dL (70-99) White Blood Count 6.5 x10^3/uL (4.0-11.0) Red Blood Count 4.80 x10^6/uL (4.30-5.70) Hemoglobin 12.6 g/dL (13.0-17.5) Hematocrit 40.2 % (39.0-53.0) Mean Corpuscular Volume 84 fL (79-100) Mean Corpuscular Hemoglobin 26 pg (25-35) Mean Corpuscular Hemoglobin Concent 31 g/dL (31-37) Red Cell Distribution Width 17.4 % (11.5-14.5) Platelet Count 142 x10^3/uL (140-400) Neutrophils (%) (Auto) 64 % (31-73) Lymphocytes (%) (Auto) 20 % (24-48) Monocytes (%) (Auto) 12 % (0-9) Eosinophils (%) (Auto) 3 % (0-3) Basophils (%) (Auto) 1 % (0-3) Neutrophils # (Auto) 4.2 x10^3/uL (1.8-7.7) Lymphocytes # (Auto) 1.3 x10^3/uL (1.0-4.8) Monocytes # (Auto) 0.8 x10^3/uL (0.0-1.1) Eosinophils # (Auto) 0.2 x10^3/uL (0.0-0.7) Basophils # (Auto) 0.0 x10^3/uL (0.0-0.2) Sodium Level 135 mmol/L (136-145) Potassium Level 4.3 mmol/L (3.5-5.1) Chloride Level 100 mmol/L (98-107) Carbon Dioxide Level 32 mmol/L (21-32) Anion Gap 3 (6-14) Blood Urea Nitrogen 37 mg/dL (8-26) Creatinine 2.0 mg/dL (0.7-1.3) Estimated GFR (Cockcroft-Gault) 35.7 Glucose Level 147 mg/dL (70-99) Calcium Level 9.3 mg/dL (8.5-10.1) Phosphorus Level 3.1 mg/dL (2.6-4.7) Magnesium Level 2.3 mg/dL (1.8-2.4) Albumin 1.9 g/dL (3.4-5.0) Results All relevant outside records, renal labs, imaging studies, telemetry/EKG's were reviewed. Justicifation of Admission Dx: Justifications for Admission: Justification of Admission Dx: Yes VASHTI ANTONY MD Sep 28, 2021 10:57
--- NOTE | 2021-09-28 12:21 | PDOC ---
Infectious Disease Note Subjective Subjective Patient feels better Fever pattern improved Denies any fever, nausea, vomiting, pain ROS ROS no n/v/d/ Vital Sign Vital Signs Vital Signs Date Time Temp Pulse Resp B/P (MAP) Pulse Ox O2 Delivery O2 Flow Rate FiO2 09/28/21 11:39 97 VAPOTHERM 30.0 09/28/21 11:00 71 19 184/81 (115) 09/28/21 08:00 98.3 98.3 Physical Exam PHYSICAL EXAM GENERAL: Alert, oriented gentleman, not in distress. VITAL SIGNS: Stable. temperature is normal, pulse 73, respirations 16, blood pressure 125/66. HEENT: Both pupils are round and reacting. No conjunctival lesion, no lesion in the mouth. NECK: Supple, no JVP, no lymphadenopathy. LUNGS: Clear. HEART: S1, S2, regular. ABDOMEN: Soft, nontender, no organomegaly. EXTREMITIES: No edema or cyanosis. Chronic changes present in the legs. NEUROLOGIC: The patient is alert, awake, and appropriate. No focal neurologic deficit. Labs Lab Laboratory Tests Test 09/27/21 17:10 09/28/21 04:00 09/28/21 11:56 Glucose (Fingerstick) 143 mg/dL (70-99) 204 mg/dL (70-99) White Blood Count 6.5 x10^3/uL (4.0-11.0) Red Blood Count 4.80 x10^6/uL (4.30-5.70) Hemoglobin 12.6 g/dL (13.0-17.5) Hematocrit 40.2 % (39.0-53.0) Mean Corpuscular Volume 84 fL (79-100) Mean Corpuscular Hemoglobin 26 pg (25-35) Mean Corpuscular Hemoglobin Concent 31 g/dL (31-37) Red Cell Distribution Width 17.4 % (11.5-14.5) Platelet Count 142 x10^3/uL (140-400) Neutrophils (%) (Auto) 64 % (31-73) Lymphocytes (%) (Auto) 20 % (24-48) Monocytes (%) (Auto) 12 % (0-9) Eosinophils (%) (Auto) 3 % (0-3) Basophils (%) (Auto) 1 % (0-3) Neutrophils # (Auto) 4.2 x10^3/uL (1.8-7.7) Lymphocytes # (Auto) 1.3 x10^3/uL (1.0-4.8) Monocytes # (Auto) 0.8 x10^3/uL (0.0-1.1) Eosinophils # (Auto) 0.2 x10^3/uL (0.0-0.7) Basophils # (Auto) 0.0 x10^3/uL (0.0-0.2) Sodium Level 135 mmol/L (136-145) Potassium Level 4.3 mmol/L (3.5-5.1) Chloride Level 100 mmol/L (98-107) Carbon Dioxide Level 32 mmol/L (21-32) Anion Gap 3 (6-14) Blood Urea Nitrogen 37 mg/dL (8-26) Creatinine 2.0 mg/dL (0.7-1.3) Estimated GFR (Cockcroft-Gault) 35.7 Glucose Level 147 mg/dL (70-99) Calcium Level 9.3 mg/dL (8.5-10.1) Phosphorus Level 3.1 mg/dL (2.6-4.7) Magnesium Level 2.3 mg/dL (1.8-2.4) Albumin 1.9 g/dL (3.4-5.0) Micro Microbiology 09/22/21 Blood Culture - Preliminary, Resulted NO GROWTH AFTER 1 DAY Objective Assessment 1. Fever and chills. 2. Leukocytosis. 3. Respiratory failure. 4. Circulatory failure. 5. Lactic acidosis. 6. Chronic obstructive pulmonary disease. 7. Morbid obesity. 8. History of right-sided heart failure. Plan Plan of Care Continue Zosyn and zyvox DC daptomycin CT Chest abdomen and pelvis results reviewed F/U labs and cultures Cont supportive care . Discussed with HEATHER HAM MD Sep 28, 2021 12:20
--- NOTE | 2021-09-28 13:32 | NUR ---
SS following up with discharge planning. SS reviewed pt chart and discussed with pt RN. Pt is currently on Vapotherm. Request received for LTACH referrals. Referrals for LTACH sent to [facility], ; fax [phone], and [facility], ; fax [phone]. Pt accepted at [facility] pending insurance approval. SS will continue to follow for discharge planning.
[2021-09-29] VITALS (19 sets, daily range): BP systolic 153–199; BP diastolic 76–104
[2021-09-29 04:16] LABS: BASO % 1 % (0-3); EOS # 0.2 x10^3/uL (0.0-0.7); EOS % 3 % (0-3); HEMATOCRIT 39.6 % (39.0-53.0); HEMOGLOBIN 12.7 g/dL (13.0-17.5); LYMPH # 1.5 x10^3/uL (1.0-4.8); LYMPH % 20 % (24-48); MEAN CORPUSCULAR HEMOGLOBIN 27 pg (25-35); MEAN CORPUSCULAR HGB CONC 32 g/dL (31-37); MEAN CORPUSCULAR VOLUME 83 fL (79-100); MONO % 13 % (0-9); NEUT # 4.6 x10^3/uL (1.8-7.7); NEUT % 63 % (31-73); PLATELET COUNT 159 x10^3/uL (140-400); RED BLOOD COUNT 4.76 x10^6/uL (4.30-5.70); RED CELL DISTRIBUTION WIDTH 16.8 % (11.5-14.5); WHITE BLOOD COUNT 7.3 x10^3/uL (4.0-11.0)
[2021-09-29 04:32] LABS: CALCIUM 9.2 mg/dL (8.5-10.1); CREATININE 2.1 mg/dL (0.7-1.3); GFR 33.7; PHOSPHORUS 3.1 mg/dL (2.6-4.7); POTASSIUM 4.3 mmol/L (3.5-5.1)
[2021-09-29] MEDS: PIPERACILLIN/TAZOBACTAM 4.5 GM in IV DEXTROSE 5% 100ML 100 ML IV SCH ×2 (06:31→12:26)
[2021-09-29] MEDS: LINEZOLID 600 MG TABLET PO SCH (08:21)
[2021-09-29] MEDS: ACETAMINOPHEN 325 MG TABLET. PO PRN (08:22)
[2021-09-29] MEDS: MINERAL OIL/PETROLATUM TOPICAL CREAM 113GM JAR. TP SCH (08:22)
[2021-09-29] MEDS: INSULIN LISPRO 300 UNITS/3 ML VIAL. SQ SCH ×3 (09:00→17:00)
--- NOTE | 2021-09-29 09:20 | PDOC ---
PROGRESS NOTES Date of Service: DATE: 09/29/21 TIME: 09:17 Subjective Subjective seen in ICU Objective Objective Vital Signs Date Time Temp Pulse Resp B/P (MAP) Pulse Ox O2 Delivery O2 Flow Rate FiO2 09/29/21 08:55 97 VAPOTHERM 30.0 09/29/21 07:00 98 24 182/92 (122) 09/29/21 04:00 98.9 98.9 Intake and Output 09/29/21 07:00 Intake Total 3870 ml Output Total 3050 ml Balance 820 ml Intake Oral 1380 ml Other 2490 ml Output Urine Total 3050 ml Physical Exam Abdomen: Soft Heart: Regular rate, Normal S1 Extremities: Other (lympedema ) General: Oriented X3 HEENT: PERRLA Lungs: Normal air movement MUSCULOSKELETAL: Osteoarthritic changes both hands Neuro: Normal speech Psych/Mental Status: Mental status NL Skin: No breakdown COMMENT acuña present Diagnosis Problem List Problems Medical Problems: (1) Acute on chronic respiratory failure with hypoxia and hypercapnia Status: Acute (2) Community acquired pneumonia Status: Acute Assessment Assessment Problems Medical Problems: (1) Acute on chronic respiratory failure with hypoxia and hypercapnia Status: Acute (2) Community acquired pneumonia Status: Acute FINAL IMPRESSION: 1. .Hypercapnic acute respiratory failure. 2. Pneumonia, rule out postobstructive pneumonia 3. Diastolic heart failure. 4. Diabetes. 5. Lactic acidosis. 6. Sepsis with multisystem failure. 7. Ac Renal failure PLAN: 15 L oxygen spoke with pulmonary Dr Dillard spoke with rehab dr Arrieta Ct scan rt middle and lower lobe Pneumonia with atelactasis Off BIPAP , Pneumonia wbc 28.5 trending down to 8. on Zyvox+zosyn cr 2.1 due to ATN,coming down slowly Diabetes Mellitus. BS Around 200. SSI. DVT prevention o Lovenox. c/s neg so far. d/c acuña and IV fluids? if ok with renal . Plan Plan of Care Problems Medical Problems: (1) Acute on chronic respiratory failure with hypoxia and hypercapnia Status: Acute (2) Community acquired pneumonia Status: Acute Comment Review of Relevant I have reviewed the following items adolfo (where applicable) has been applied. Labs Laboratory Tests Test 09/28/21 11:56 09/28/21 17:20 09/29/21 03:50 09/29/21 08:56 Glucose (Fingerstick) 204 mg/dL (70-99) 131 mg/dL (70-99) 164 mg/dL (70-99) White Blood Count 7.3 x10^3/uL (4.0-11.0) Red Blood Count 4.76 x10^6/uL (4.30-5.70) Hemoglobin 12.7 g/dL (13.0-17.5) Hematocrit 39.6 % (39.0-53.0) Mean Corpuscular Volume 83 fL (79-100) Mean Corpuscular Hemoglobin 27 pg (25-35) Mean Corpuscular Hemoglobin Concent 32 g/dL (31-37) Red Cell Distribution Width 16.8 % (11.5-14.5) Platelet Count 159 x10^3/uL (140-400) Neutrophils (%) (Auto) 63 % (31-73) Lymphocytes (%) (Auto) 20 % (24-48) Monocytes (%) (Auto) 13 % (0-9) Eosinophils (%) (Auto) 3 % (0-3) Basophils (%) (Auto) 1 % (0-3) Neutrophils # (Auto) 4.6 x10^3/uL (1.8-7.7) Lymphocytes # (Auto) 1.5 x10^3/uL (1.0-4.8) Monocytes # (Auto) 1.0 x10^3/uL (0.0-1.1) Eosinophils # (Auto) 0.2 x10^3/uL (0.0-0.7) Basophils # (Auto) 0.0 x10^3/uL (0.0-0.2) Sodium Level 137 mmol/L (136-145) Potassium Level 4.3 mmol/L (3.5-5.1) Chloride Level 100 mmol/L (98-107) Carbon Dioxide Level 34 mmol/L (21-32) Anion Gap 3 (6-14) Blood Urea Nitrogen 31 mg/dL (8-26) Creatinine 2.1 mg/dL (0.7-1.3) Estimated GFR (Cockcroft-Gault) 33.7 Glucose Level 144 mg/dL (70-99) Calcium Level 9.2 mg/dL (8.5-10.1) Phosphorus Level 3.1 mg/dL (2.6-4.7) Magnesium Level 2.0 mg/dL (1.8-2.4) Albumin 2.0 g/dL (3.4-5.0) Microbiology 09/23/21 Urine Culture - Final, Complete 09/22/21 Blood Culture - Final, Complete NO GROWTH AFTER 5 DAYS Vitals/I & O Vital Sign - Last 24 Hours 09/28/21 09/28/21 09/28/21 09/28/21 10:00 11:00 11:39 12:00 Temp 98.2 98.2 Pulse 70 71 72 Resp 16 19 25 B/P (MAP) 169/88 (115) 184/81 (115) 153/82 (105) Pulse Ox 97 97 97 97 O2 Delivery vapotherm vapotherm VAPOTHERM vapotherm O2 Flow Rate 30.0 30.0 30.0 30.0 09/28/21 09/28/21 09/28/21 09/28/21 12:00 13:00 13:17 14:00 Pulse 70 74 Resp 21 B/P (MAP) 142/71 (94) 163/85 (111) Pulse Ox 96 97 98 O2 Delivery Vapotherm vapotherm VAPOTHERM vapotherm O2 Flow Rate 30.0 30.0 30.0 09/28/21 09/28/21 09/28/21 09/28/21 15:00 15:31 16:00 16:00 Temp 98.6 98.6 Pulse 103 99 Resp B/P (MAP) 165/85 (111) 170/87 (114) Pulse Ox 97 97 98 O2 Delivery vapotherm VAPOTHERM Nasal Cannula vapotherm O2 Flow Rate 30.0 30.0 15.0 15.0 09/28/21 09/28/21 09/28/21 09/28/21 17:00 17:22 18:00 19:00 Pulse 96 101 79 Resp 22 B/P (MAP) 177/85 (115) 159/89 (112) 180/96 (124) Pulse Ox 93 94 92 91 O2 Delivery vapotherm High Flow Nasal Cannula vapotherm vapotherm O2 Flow Rate 15.0 15.0 15.0 15.0 09/28/21 09/28/21 09/28/21 09/28/21 20:00 20:00 20:00 20:36 Temp 98.3 98.3 Pulse 99 Resp 22 B/P (MAP) 172/83 (112) Pulse Ox 93 98 O2 Delivery vapotherm Nasal Cannula BiPAP/CPAP O2 Flow Rate 15.0 15.0 15.0 09/28/21 09/28/21 09/28/21 09/28/21 21:00 22:00 22:37 23:00 Pulse 98 98 96 Resp 20 20 20 B/P (MAP) 162/76 (104) 167/81 (109) 152/76 (101) Pulse Ox 98 96 96 96 O2 Delivery vapotherm BiPAP/CPAP BiPAP/CPAP BiPAP/CPAP O2 Flow Rate 15.0 15.0 09/29/21 09/29/21 09/29/21 09/29/21 00:00 00:00 00:00 01:00 Temp 98.1 98.1 Pulse 100 100 Resp 20 20 B/P (MAP) 173/95 (121) 171/89 (116) Pulse Ox 100 100 O2 Delivery BiPAP/CPAP Nasal Cannula Nasal Cannula O2 Flow Rate 15.0 15.0 15.0 09/29/21 09/29/21 09/29/21 09/29/21 02:00 03:00 04:00 04:00 Pulse 103 100 Resp 20 20 B/P (MAP) 165/96 (119) 162/90 (114) Pulse Ox 91 87 O2 Delivery Nasal Cannula vapotherm Nasal Cannula O2 Flow Rate 15.0 30.0 30.0 15.0 09/29/21 09/29/21 09/29/21 09/29/21 04:00 04:40 05:00 06:00 Temp 98.9 98.9 Pulse 98 100 98 Resp 20 20 20 B/P (MAP) 176/91 (119) 179/96 (123) 186/95 (125) Pulse Ox 90 95 93 96 O2 Delivery vapotherm VAPOTHERM vapotherm vapotherm O2 Flow Rate 30.0 30.0 30.0 30.0 09/29/21 09/29/21 09/29/21 07:00 08:06 08:55 Pulse 98 Resp 24 B/P (MAP) 182/92 (122) Pulse Ox 94 98 97 O2 Delivery vapotherm VAPOTHERM VAPOTHERM O2 Flow Rate 30.0 30.0 30.0 Intake and Output 09/28/21 09/28/21 09/29/21 15:00 23:00 07:00 Intake Total 480 ml 3270 ml 120 ml Output Total 700 ml 1300 ml 1050 ml Balance -220 ml 1970 ml -930 ml Justifications for Admission Other Justification ANT LICEA MD Sep 29, 2021 09:20
--- NOTE | 2021-09-29 09:33 | PDOC ---
DATE OF SERVICE DATE: 09/29/21 TIME: 09:32 SUBJECTIVE ROS Currently on o2 by NC No complaints, stable. No Overnight concerns per RN OBJECTIVE Vital Signs Vital Signs Date Time Temp Pulse Resp B/P (MAP) Pulse Ox O2 Delivery O2 Flow Rate FiO2 09/29/21 08:55 97 VAPOTHERM 30.0 09/29/21 07:00 98 24 182/92 (122) 09/29/21 04:00 98.9 98.9 I & 0 Intake and Output 09/29/21 06:59 Intake Total 3870 ml Output Total 3050 ml Balance 820 ml Intake Oral 1380 ml Other 2490 ml Output Urine Total 3050 ml PHYSICAL EXAM Physical Exam GENERAL: not in distress.Morbidly obese HEENT: Both pupils are round and reacting. No conjunctival lesion, OM moist NECK: Supple, no JVP, no lymphadenopathy. LUNGS: Clear.non labored HEART: S1, S2, regular. ABDOMEN: Soft, nontender, no organomegaly.Obese EXTREMITIES: No edema or cyanosis. Chronic changes present in the legs. NEUROLOGIC: No focal neurologic deficit [place] in place , No CVA or SP tenderness DERM No Rash DIAGNOSIS/ASSESSMENT DIAGNOSIS/ASSESSMENT Assessment & Plan AD[facility] - ATN/Vomiting /Hypotension /Sepsis , Non Oliguric .Creat stable. maintain fluid balance. DC IVF Supportive care, avoid nephrotoxins, I/O . Monitor . 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 Fever / Sepsis/ Marked leukocytosis. Renal Cyst - 2.2 cm hypodense exophytic left renal lesion, likely a simple or minimally complicated cyst. COPD Morbid obesity. COMMENT/RELEVANT DATA Meds Current Medications Medications (Trade) Dose Ordered Sig/Michelle Start Time Stop Time Status Last Admin Dose Admin Acetaminophen (Tylenol) 650 mg PRN Q6HRS PRN 09/25/21 12:30 09/29/21 08:22 650 MG Albuterol Sulfate (Ventolin Neb Soln) 2.5 mg PRN Q4HRS PRN 09/22/21 23:30 Albuterol/ Ipratropium (Duoneb) 3 ml 1X ONCE 09/22/21 22:30 09/22/21 22:31 DC 09/22/21 22:05 3 ML Ceftriaxone Sodium (Rocephin) 2 gm 1X ONCE 09/22/21 23:30 09/22/21 23:31 DC 09/23/21 00:11 2 GM Clonidine HCl (Catapres Tts-2) 1 patch WEEKLY 09/27/21 17:00 09/27/21 17:11 1 PATCH Daptomycin 760 mg/ Sodium Chloride 50 ml @ 100 mls/hr Q24H 09/23/21 16:00 09/26/21 12:32 DC 09/25/21 16:42 100 MLS/HR Dextrose (Dextrose 50%-Water Syringe) 12.5 gm PRN Q15MIN PRN 09/23/21 09:15 Doxycycline Hyclate 100 mg/ Dextrose 100 ml @ 50 mls/hr 1X ONCE 09/22/21 23:30 09/23/21 01:29 DC Enoxaparin Sodium (Lovenox 60mg Syringe) 60 mg Q12HR 09/23/21 09:00 09/29/21 08:21 60 MG Enoxaparin Sodium (Lovenox Per Pharmacy Prophylaxis Dosing) 1 each PRN DAILY PRN 09/23/21 09:00 Fentanyl Citrate (Fentanyl 2ml Vial) 50 mcg PRN Q1HR PRN 09/22/21 23:15 09/23/21 23:14 DC Hydralazine HCl (Apresoline Inj) 10 mg PRN Q4HRS PRN 09/27/21 16:45 09/27/21 17:12 10 MG Insulin Human Lispro (HumaLOG) 0-5 UNITS TIDWMEALS 09/23/21 12:00 09/29/21 09:00 2 UNITS Linezolid (Zyvox) 600 mg BID 09/25/21 18:00 09/29/21 08:21 600 MG Magnesium Sulfate 50 ml @ 25 mls/hr PRN DAILY PRN 09/25/21 12:00 Magnesium Sulfate 3 gm/Dextrose 106 ml @ 35.333 mls/ hr 1X ONCE 09/23/21 15:45 09/23/21 18:44 UNV Magnesium Sulfate/ Dextrose 100 ml @ 100 mls/hr 1X ONCE 09/23/21 18:00 09/23/21 18:59 DC 09/23/21 16:36 100 MLS/HR Multi-Ingredient Ointment (Hydrocerin, Eucerin Cream) 1 jason BID 09/27/21 10:30 09/29/21 08:22 1 JASON Norepinephrine Bitartrate 8 mg/ Dextrose 258 ml @ 40.442 mls/ hr CONT PRN 09/23/21 01:45 09/25/21 05:27 40.442 MLS/HR Ondansetron HCl (Zofran) 4 mg PRN Q8HRS PRN 09/22/21 23:15 09/23/21 23:14 DC 09/23/21 22:55 4 MG Piperacillin Sod/ Tazobactam Sod (Zosyn Per Pharmacy) 1 each PRN DAILY PRN 09/23/21 08:45 Piperacillin Sod/ Tazobactam Sod 3.375 gm/Sodium Chloride 50 ml @ 100 mls/hr Q6HRS 09/23/21 09:00 09/27/21 13:11 DC 09/27/21 12:14 100 MLS/HR Piperacillin Sod/ Tazobactam Sod 4.5 gm/Dextrose 100 ml @ 200 mls/hr Q6HRS 09/27/21 18:00 09/29/21 06:31 200 MLS/HR Sodium Chloride 1,000 ml @ 75 mls/hr [id number] 09/23/21 02:15 09/28/21 10:49 DC 09/28/21 06:14 75 MLS/HR Sterile Water (WATER for RESP) 2,000 ml CONT PRN 09/23/21 15:30 09/27/21 01:35 2,000 ML Lab Laboratory Tests Test 09/28/21 11:56 09/28/21 17:20 09/29/21 03:50 09/29/21 08:56 Glucose (Fingerstick) 204 mg/dL (70-99) 131 mg/dL (70-99) 164 mg/dL (70-99) White Blood Count 7.3 x10^3/uL (4.0-11.0) Red Blood Count 4.76 x10^6/uL (4.30-5.70) Hemoglobin 12.7 g/dL (13.0-17.5) Hematocrit 39.6 % (39.0-53.0) Mean Corpuscular Volume 83 fL (79-100) Mean Corpuscular Hemoglobin 27 pg (25-35) Mean Corpuscular Hemoglobin Concent 32 g/dL (31-37) Red Cell Distribution Width 16.8 % (11.5-14.5) Platelet Count 159 x10^3/uL (140-400) Neutrophils (%) (Auto) 63 % (31-73) Lymphocytes (%) (Auto) 20 % (24-48) Monocytes (%) (Auto) 13 % (0-9) Eosinophils (%) (Auto) 3 % (0-3) Basophils (%) (Auto) 1 % (0-3) Neutrophils # (Auto) 4.6 x10^3/uL (1.8-7.7) Lymphocytes # (Auto) 1.5 x10^3/uL (1.0-4.8) Monocytes # (Auto) 1.0 x10^3/uL (0.0-1.1) Eosinophils # (Auto) 0.2 x10^3/uL (0.0-0.7) Basophils # (Auto) 0.0 x10^3/uL (0.0-0.2) Sodium Level 137 mmol/L (136-145) Potassium Level 4.3 mmol/L (3.5-5.1) Chloride Level 100 mmol/L (98-107) Carbon Dioxide Level 34 mmol/L (21-32) Anion Gap 3 (6-14) Blood Urea Nitrogen 31 mg/dL (8-26) Creatinine 2.1 mg/dL (0.7-1.3) Estimated GFR (Cockcroft-Gault) 33.7 Glucose Level 144 mg/dL (70-99) Calcium Level 9.2 mg/dL (8.5-10.1) Phosphorus Level 3.1 mg/dL (2.6-4.7) Magnesium Level 2.0 mg/dL (1.8-2.4) Albumin 2.0 g/dL (3.4-5.0) Results All relevant outside records, renal labs, imaging studies, telemetry/EKG's were reviewed. Justicifation of Admission Dx: Justifications for Admission: Justification of Admission Dx: Yes VASHTI ANTONY MD Sep 29, 2021 09:32
--- NOTE | 2021-09-29 10:09 | PDOC ---
PULMONARY PROGRESS NOTES DATE: 09/29/21 TIME: 10:07 Subjective Patient currently on Vapotherm at 70% FiO2. Could not tolerate off the Vapotherm yesterday. Denies any shortness of breath Vitals Vital Signs Date Time Temp Pulse Resp B/P (MAP) Pulse Ox O2 Delivery O2 Flow Rate FiO2 09/29/21 08:55 97 VAPOTHERM 30.0 09/29/21 07:00 98 24 182/92 (122) 09/29/21 04:00 98.9 98.9 ROS: No Nausea, No Chest Pain, No Abdominal Pain, No Increase Cough General: Alert, No acute distress Lungs: Clear Cardiovascular: S1, S2 Abdomen: Soft, Non-tender, Other (Obese) Neuro Exam: Alert Extremities: Other (Decrease edema) Skin: Warm Labs Laboratory Tests Test 09/27/21 12:10 09/27/21 17:10 09/28/21 04:00 09/28/21 11:56 Glucose (Fingerstick) 177 mg/dL (70-99) 143 mg/dL (70-99) 204 mg/dL (70-99) White Blood Count 6.5 x10^3/uL (4.0-11.0) Red Blood Count 4.80 x10^6/uL (4.30-5.70) Hemoglobin 12.6 g/dL (13.0-17.5) Hematocrit 40.2 % (39.0-53.0) Mean Corpuscular Volume 84 fL (79-100) Mean Corpuscular Hemoglobin 26 pg (25-35) Mean Corpuscular Hemoglobin Concent 31 g/dL (31-37) Red Cell Distribution Width 17.4 % (11.5-14.5) Platelet Count 142 x10^3/uL (140-400) Neutrophils (%) (Auto) 64 % (31-73) Lymphocytes (%) (Auto) 20 % (24-48) Monocytes (%) (Auto) 12 % (0-9) Eosinophils (%) (Auto) 3 % (0-3) Basophils (%) (Auto) 1 % (0-3) Neutrophils # (Auto) 4.2 x10^3/uL (1.8-7.7) Lymphocytes # (Auto) 1.3 x10^3/uL (1.0-4.8) Monocytes # (Auto) 0.8 x10^3/uL (0.0-1.1) Eosinophils # (Auto) 0.2 x10^3/uL (0.0-0.7) Basophils # (Auto) 0.0 x10^3/uL (0.0-0.2) Sodium Level 135 mmol/L (136-145) Potassium Level 4.3 mmol/L (3.5-5.1) Chloride Level 100 mmol/L (98-107) Carbon Dioxide Level 32 mmol/L (21-32) Anion Gap 3 (6-14) Blood Urea Nitrogen 37 mg/dL (8-26) Creatinine 2.0 mg/dL (0.7-1.3) Estimated GFR (Cockcroft-Gault) 35.7 Glucose Level 147 mg/dL (70-99) Calcium Level 9.3 mg/dL (8.5-10.1) Phosphorus Level 3.1 mg/dL (2.6-4.7) Magnesium Level 2.3 mg/dL (1.8-2.4) Albumin 1.9 g/dL (3.4-5.0) Test 09/28/21 17:20 09/29/21 03:50 09/29/21 08:56 Glucose (Fingerstick) 131 mg/dL (70-99) 164 mg/dL (70-99) White Blood Count 7.3 x10^3/uL (4.0-11.0) Red Blood Count 4.76 x10^6/uL (4.30-5.70) Hemoglobin 12.7 g/dL (13.0-17.5) Hematocrit 39.6 % (39.0-53.0) Mean Corpuscular Volume 83 fL (79-100) Mean Corpuscular Hemoglobin 27 pg (25-35) Mean Corpuscular Hemoglobin Concent 32 g/dL (31-37) Red Cell Distribution Width 16.8 % (11.5-14.5) Platelet Count 159 x10^3/uL (140-400) Neutrophils (%) (Auto) 63 % (31-73) Lymphocytes (%) (Auto) 20 % (24-48) Monocytes (%) (Auto) 13 % (0-9) Eosinophils (%) (Auto) 3 % (0-3) Basophils (%) (Auto) 1 % (0-3) Neutrophils # (Auto) 4.6 x10^3/uL (1.8-7.7) Lymphocytes # (Auto) 1.5 x10^3/uL (1.0-4.8) Monocytes # (Auto) 1.0 x10^3/uL (0.0-1.1) Eosinophils # (Auto) 0.2 x10^3/uL (0.0-0.7) Basophils # (Auto) 0.0 x10^3/uL (0.0-0.2) Sodium Level 137 mmol/L (136-145) Potassium Level 4.3 mmol/L (3.5-5.1) Chloride Level 100 mmol/L (98-107) Carbon Dioxide Level 34 mmol/L (21-32) Anion Gap 3 (6-14) Blood Urea Nitrogen 31 mg/dL (8-26) Creatinine 2.1 mg/dL (0.7-1.3) Estimated GFR (Cockcroft-Gault) 33.7 Glucose Level 144 mg/dL (70-99) Calcium Level 9.2 mg/dL (8.5-10.1) Phosphorus Level 3.1 mg/dL (2.6-4.7) Magnesium Level 2.0 mg/dL (1.8-2.4) Albumin 2.0 g/dL (3.4-5.0) Laboratory Tests Test 09/28/21 11:56 09/28/21 17:20 09/29/21 03:50 09/29/21 08:56 Glucose (Fingerstick) 204 mg/dL (70-99) 131 mg/dL (70-99) 164 mg/dL (70-99) White Blood Count 7.3 x10^3/uL (4.0-11.0) Red Blood Count 4.76 x10^6/uL (4.30-5.70) Hemoglobin 12.7 g/dL (13.0-17.5) Hematocrit 39.6 % (39.0-53.0) Mean Corpuscular Volume 83 fL (79-100) Mean Corpuscular Hemoglobin 27 pg (25-35) Mean Corpuscular Hemoglobin Concent 32 g/dL (31-37) Red Cell Distribution Width 16.8 % (11.5-14.5) Platelet Count 159 x10^3/uL (140-400) Neutrophils (%) (Auto) 63 % (31-73) Lymphocytes (%) (Auto) 20 % (24-48) Monocytes (%) (Auto) 13 % (0-9) Eosinophils (%) (Auto) 3 % (0-3) Basophils (%) (Auto) 1 % (0-3) Neutrophils # (Auto) 4.6 x10^3/uL (1.8-7.7) Lymphocytes # (Auto) 1.5 x10^3/uL (1.0-4.8) Monocytes # (Auto) 1.0 x10^3/uL (0.0-1.1) Eosinophils # (Auto) 0.2 x10^3/uL (0.0-0.7) Basophils # (Auto) 0.0 x10^3/uL (0.0-0.2) Sodium Level 137 mmol/L (136-145) Potassium Level 4.3 mmol/L (3.5-5.1) Chloride Level 100 mmol/L (98-107) Carbon Dioxide Level 34 mmol/L (21-32) Anion Gap 3 (6-14) Blood Urea Nitrogen 31 mg/dL (8-26) Creatinine 2.1 mg/dL (0.7-1.3) Estimated GFR (Cockcroft-Gault) 33.7 Glucose Level 144 mg/dL (70-99) Calcium Level 9.2 mg/dL (8.5-10.1) Phosphorus Level 3.1 mg/dL (2.6-4.7) Magnesium Level 2.0 mg/dL (1.8-2.4) Albumin 2.0 g/dL (3.4-5.0) Medications Active Scripts Medications Dose Route/Sig Max Daily Dose Days Date Category [Albuterol] 09/23/21 Reported Jardiance (Empagliflozin) 25 Mg Tablet 1 Tab PO DAILY 09/23/21 Reported Benzonatate 200 Mg Capsule 1 Cap PO PRN TID PRN 08/19/21 Rx Ventolin Hfa Inhaler (Albuterol Sulfate) 18 Gm Hfa.aer.ad 2 Puff INH Q4HRS 08/19/21 Rx Doxycycline Hyclate 100 Mg Capsule 1 Cap PO BID 7 08/19/21 Rx Bumetanide 2 Mg Tablet 2 Mg PO BID 30 02/04/20 Rx Aspirin Ec (Aspirin) 325 Mg Tablet. 325 Mg PO DAILYWBKFT 30 02/04/20 Rx [Fluconazole] 100 MG Tablet 400 Mg PO DAILY 10 08/19/19 Rx Hydralazine Hcl 50 Mg Tablet 50 Mg PO TID 90 08/19/19 Rx K-Tab ER (Potassium Chloride) 20 Meq Tablet.er 20 Meq PO BID 30 08/19/19 Rx One-A-Day Essential (Multivitamin) 1 Each Tablet 1 Tab PO DAILY 30 08/15/19 Reported Metformin Hcl 500 Mg Tablet 2 Tab PO BIDWMEALS 08/15/19 Reported Carvedilol (Carvedilol) 12.5 Mg Tablet 2 Tab PO BIDWMEALS 08/15/19 Reported Lisinopril 20 Mg Tablet 1 Tab PO DAILY 08/15/19 Reported Impression . IMPRESSION: 1. Acute on chronic hypoxemic hypercapnic respiratory failure. 2. Sepsis. 3. Fever related to the above. Resolved. 4. Marked leukocytosis. 5. Morbid obesity. 6. Acute on chronic renal insufficiency. 7. Lactic acidosis. 8. Protein malnutrition present upon admission. 9. Rapid test for SARS-CoV-[address] chest with mucous plugging right lower lobe. Plan . Updated 09/29 Discussed with RT, patient could not tolerate off the Vapotherm yesterday. Remains at 70% FiO2 and 30 L of flow. Nightly BiPAP Antibiotics per ID Follow-up on cultures. So far negative. Advance diet Bronchodilators DVT prophylaxis CT chest reviewed. There is right lower lobe atelectasis likely caused by mucous plug. Discussed with Dr. LICEA. Clinically high risk for bronchoscopy at present due to high oxygen requirements. Once clinically improve will consider bronchoscopy. This can be done as an outpatient as well. Continue aggressive pulmonary toilet. Updated 09/28 Discussed with RT, titrate Vapotherm down. Will wean FiO2 keep saturations 92% and above. Nightly BiPAP Antibiotics per ID Follow-up on cultures Advance diet Bronchodilators DVT prophylaxis CT chest reviewed. There is right lower lobe atelectasis likely caused by mucous plug. Discussed with Dr. LICEA. Clinically high risk for bronchoscopy at present due to high oxygen requirements. Once clinically improve will consider bronchoscopy. This can be done as an outpatient as well. JAMES MONSON MD Sep 29, 2021 10:09
[2021-09-29] MEDS: hydrALAZINE 20 MG/ML VIAL. IVP PRN (11:14)
--- NOTE | 2021-09-29 12:15 | PDOC ---
Infectious Disease Note Subjective Subjective Patient feels better Fever pattern improved Denies any fever, nausea, vomiting, pain ROS ROS no n/v/d/ Vital Sign Vital Signs Vital Signs Date Time Temp Pulse Resp B/P (MAP) Pulse Ox O2 Delivery O2 Flow Rate FiO2 09/29/21 11:19 97 VAPOTHERM 30.0 09/29/21 11:14 92 181/97 09/29/21 11:00 24 09/29/21 08:00 98.5 98.5 Physical Exam PHYSICAL EXAM GENERAL: Alert, oriented gentleman, not in distress. VITAL SIGNS: Stable. HEENT: Both pupils are round and reacting. No conjunctival lesion, no lesion in the mouth. NECK: Supple, no JVP, no lymphadenopathy. LUNGS: Clear. HEART: S1, S2, regular. ABDOMEN: Soft, nontender, no organomegaly. EXTREMITIES: No edema or cyanosis. Chronic changes present in the legs. NEUROLOGIC: The patient is alert, awake, and appropriate. No focal neurologic deficit. Labs Lab Laboratory Tests Test 09/28/21 17:20 09/29/21 03:50 09/29/21 08:56 Glucose (Fingerstick) 131 mg/dL (70-99) 164 mg/dL (70-99) White Blood Count 7.3 x10^3/uL (4.0-11.0) Red Blood Count 4.76 x10^6/uL (4.30-5.70) Hemoglobin 12.7 g/dL (13.0-17.5) Hematocrit 39.6 % (39.0-53.0) Mean Corpuscular Volume 83 fL (79-100) Mean Corpuscular Hemoglobin 27 pg (25-35) Mean Corpuscular Hemoglobin Concent 32 g/dL (31-37) Red Cell Distribution Width 16.8 % (11.5-14.5) Platelet Count 159 x10^3/uL (140-400) Neutrophils (%) (Auto) 63 % (31-73) Lymphocytes (%) (Auto) 20 % (24-48) Monocytes (%) (Auto) 13 % (0-9) Eosinophils (%) (Auto) 3 % (0-3) Basophils (%) (Auto) 1 % (0-3) Neutrophils # (Auto) 4.6 x10^3/uL (1.8-7.7) Lymphocytes # (Auto) 1.5 x10^3/uL (1.0-4.8) Monocytes # (Auto) 1.0 x10^3/uL (0.0-1.1) Eosinophils # (Auto) 0.2 x10^3/uL (0.0-0.7) Basophils # (Auto) 0.0 x10^3/uL (0.0-0.2) Sodium Level 137 mmol/L (136-145) Potassium Level 4.3 mmol/L (3.5-5.1) Chloride Level 100 mmol/L (98-107) Carbon Dioxide Level 34 mmol/L (21-32) Anion Gap 3 (6-14) Blood Urea Nitrogen 31 mg/dL (8-26) Creatinine 2.1 mg/dL (0.7-1.3) Estimated GFR (Cockcroft-Gault) 33.7 Glucose Level 144 mg/dL (70-99) Calcium Level 9.2 mg/dL (8.5-10.1) Phosphorus Level 3.1 mg/dL (2.6-4.7) Magnesium Level 2.0 mg/dL (1.8-2.4) Albumin 2.0 g/dL (3.4-5.0) Micro Microbiology 09/22/21 Blood Culture - Preliminary, Resulted NO GROWTH AFTER 1 DAY Objective Assessment 1. Fever and chills. 2. Leukocytosis. 3. Respiratory failure. 4. Circulatory failure. 5. Lactic acidosis. 6. Chronic obstructive pulmonary disease. 7. Morbid obesity. 8. History of right-sided heart failure. Plan Plan of Care Continue Zosyn and zyvox DC daptomycin CT Chest abdomen and pelvis results reviewed F/U labs and cultures Cont supportive care . Discussed with HEATHER HAM MD Sep 29, 2021 12:15
--- NOTE | 2021-09-29 15:22 | PDOC ---
PROGRESS NOTES Date of Service DATE: 09/29/21 TIME: 15:20 Subjective Subjective No new complaints. Objective Objective Vital Signs Date Time Temp Pulse Resp B/P (MAP) Pulse Ox O2 Delivery O2 Flow Rate FiO2 09/29/21 14:00 102 22 161/76 (104) 95 vapotherm 30.0 09/29/21 12:00 98.4 98.4 Intake and Output 09/29/21 07:00 Intake Total 3870 ml Output Total 3050 ml Balance 820 ml Intake Oral 1380 ml Other 2490 ml Output Urine Total 3050 ml Physical Exam Physical Exam He feels better and he got up and walked at bedside using a roller walker under supervision. He is using oxygen through vapotherm. Assessment Assessment Problems Medical Problems: (1) Acute on chronic respiratory failure with hypoxia and hypercapnia Status: Acute (2) Community acquired pneumonia Status: Acute Plan Plan of Care To get him up as tolerated. Comment Review of Relevant I have reviewed the following items adolfo (where applicable) has been applied. Labs Laboratory Tests Test 09/27/21 17:10 09/28/21 04:00 09/28/21 11:56 09/28/21 17:20 Glucose (Fingerstick) 143 mg/dL (70-99) 204 mg/dL (70-99) 131 mg/dL (70-99) White Blood Count 6.5 x10^3/uL (4.0-11.0) Red Blood Count 4.80 x10^6/uL (4.30-5.70) Hemoglobin 12.6 g/dL (13.0-17.5) Hematocrit 40.2 % (39.0-53.0) Mean Corpuscular Volume 84 fL (79-100) Mean Corpuscular Hemoglobin 26 pg (25-35) Mean Corpuscular Hemoglobin Concent 31 g/dL (31-37) Red Cell Distribution Width 17.4 % (11.5-14.5) Platelet Count 142 x10^3/uL (140-400) Neutrophils (%) (Auto) 64 % (31-73) Lymphocytes (%) (Auto) 20 % (24-48) Monocytes (%) (Auto) 12 % (0-9) Eosinophils (%) (Auto) 3 % (0-3) Basophils (%) (Auto) 1 % (0-3) Neutrophils # (Auto) 4.2 x10^3/uL (1.8-7.7) Lymphocytes # (Auto) 1.3 x10^3/uL (1.0-4.8) Monocytes # (Auto) 0.8 x10^3/uL (0.0-1.1) Eosinophils # (Auto) 0.2 x10^3/uL (0.0-0.7) Basophils # (Auto) 0.0 x10^3/uL (0.0-0.2) Sodium Level 135 mmol/L (136-145) Potassium Level 4.3 mmol/L (3.5-5.1) Chloride Level 100 mmol/L (98-107) Carbon Dioxide Level 32 mmol/L (21-32) Anion Gap 3 (6-14) Blood Urea Nitrogen 37 mg/dL (8-26) Creatinine 2.0 mg/dL (0.7-1.3) Estimated GFR (Cockcroft-Gault) 35.7 Glucose Level 147 mg/dL (70-99) Calcium Level 9.3 mg/dL (8.5-10.1) Phosphorus Level 3.1 mg/dL (2.6-4.7) Magnesium Level 2.3 mg/dL (1.8-2.4) Albumin 1.9 g/dL (3.4-5.0) Test 09/29/21 03:50 09/29/21 08:56 09/29/21 12:58 White Blood Count 7.3 x10^3/uL (4.0-11.0) Red Blood Count 4.76 x10^6/uL (4.30-5.70) Hemoglobin 12.7 g/dL (13.0-17.5) Hematocrit 39.6 % (39.0-53.0) Mean Corpuscular Volume 83 fL (79-100) Mean Corpuscular Hemoglobin 27 pg (25-35) Mean Corpuscular Hemoglobin Concent 32 g/dL (31-37) Red Cell Distribution Width 16.8 % (11.5-14.5) Platelet Count 159 x10^3/uL (140-400) Neutrophils (%) (Auto) 63 % (31-73) Lymphocytes (%) (Auto) 20 % (24-48) Monocytes (%) (Auto) 13 % (0-9) Eosinophils (%) (Auto) 3 % (0-3) Basophils (%) (Auto) 1 % (0-3) Neutrophils # (Auto) 4.6 x10^3/uL (1.8-7.7) Lymphocytes # (Auto) 1.5 x10^3/uL (1.0-4.8) Monocytes # (Auto) 1.0 x10^3/uL (0.0-1.1) Eosinophils # (Auto) 0.2 x10^3/uL (0.0-0.7) Basophils # (Auto) 0.0 x10^3/uL (0.0-0.2) Sodium Level 137 mmol/L (136-145) Potassium Level 4.3 mmol/L (3.5-5.1) Chloride Level 100 mmol/L (98-107) Carbon Dioxide Level 34 mmol/L (21-32) Anion Gap 3 (6-14) Blood Urea Nitrogen 31 mg/dL (8-26) Creatinine 2.1 mg/dL (0.7-1.3) Estimated GFR (Cockcroft-Gault) 33.7 Glucose Level 144 mg/dL (70-99) Calcium Level 9.2 mg/dL (8.5-10.1) Phosphorus Level 3.1 mg/dL (2.6-4.7) Magnesium Level 2.0 mg/dL (1.8-2.4) Albumin 2.0 g/dL (3.4-5.0) Glucose (Fingerstick) 164 mg/dL (70-99) 149 mg/dL (70-99) Laboratory Tests Test 09/28/21 17:20 09/29/21 03:50 09/29/21 08:56 09/29/21 12:58 Glucose (Fingerstick) 131 mg/dL (70-99) 164 mg/dL (70-99) 149 mg/dL (70-99) White Blood Count 7.3 x10^3/uL (4.0-11.0) Red Blood Count 4.76 x10^6/uL (4.30-5.70) Hemoglobin 12.7 g/dL (13.0-17.5) Hematocrit 39.6 % (39.0-53.0) Mean Corpuscular Volume 83 fL (79-100) Mean Corpuscular Hemoglobin 27 pg (25-35) Mean Corpuscular Hemoglobin Concent 32 g/dL (31-37) Red Cell Distribution Width 16.8 % (11.5-14.5) Platelet Count 159 x10^3/uL (140-400) Neutrophils (%) (Auto) 63 % (31-73) Lymphocytes (%) (Auto) 20 % (24-48) Monocytes (%) (Auto) 13 % (0-9) Eosinophils (%) (Auto) 3 % (0-3) Basophils (%) (Auto) 1 % (0-3) Neutrophils # (Auto) 4.6 x10^3/uL (1.8-7.7) Lymphocytes # (Auto) 1.5 x10^3/uL (1.0-4.8) Monocytes # (Auto) 1.0 x10^3/uL (0.0-1.1) Eosinophils # (Auto) 0.2 x10^3/uL (0.0-0.7) Basophils # (Auto) 0.0 x10^3/uL (0.0-0.2) Sodium Level 137 mmol/L (136-145) Potassium Level 4.3 mmol/L (3.5-5.1) Chloride Level 100 mmol/L (98-107) Carbon Dioxide Level 34 mmol/L (21-32) Anion Gap 3 (6-14) Blood Urea Nitrogen 31 mg/dL (8-26) Creatinine 2.1 mg/dL (0.7-1.3) Estimated GFR (Cockcroft-Gault) 33.7 Glucose Level 144 mg/dL (70-99) Calcium Level 9.2 mg/dL (8.5-10.1) Phosphorus Level 3.1 mg/dL (2.6-4.7) Magnesium Level 2.0 mg/dL (1.8-2.4) Albumin 2.0 g/dL (3.4-5.0) Microbiology 09/23/21 Urine Culture - Final, Complete 09/22/21 Blood Culture - Final, Complete NO GROWTH AFTER 5 DAYS Medications Current Medications Acetaminophen (Tylenol) 1,000 mg 1X ONCE PO Last administered on 09/23/21at 00:12; Start 09/22/21 at 22:30; Stop 09/22/21 at 22:31; Status DC Sodium Chloride 1,000 ml @ 1,000 mls/hr 1X ONCE IV ; Start 09/22/21 at 22:30; Stop 09/22/21 at 23:29; Status DC Albuterol/ Ipratropium (Duoneb) 3 ml 1X ONCE NEB Last administered on 09/22/21at 22:05; Start 09/22/21 at 22:30; Stop 09/22/21 at 22:31; Status DC Doxycycline Hyclate 100 mg/ Dextrose 100 ml @ 50 mls/hr 1X ONCE IV ; Start 09/22/21 at 23:30; Stop 09/23/21 at 01:29; Status DC Ceftriaxone Sodium (Rocephin) 2 gm 1X ONCE IVP Last administered on 09/23/21at 00:11; Start 09/22/21 at 23:30; Stop 09/22/21 at 23:31; Status DC Ondansetron HCl (Zofran) 4 mg PRN Q8HRS PRN IVP NAUSEA/VOMITING 1ST CHOICE Last administered on 09/23/21at 22:55; Start 09/22/21 at 23:15; Stop 09/23/21 at 23:14; Status DC Fentanyl Citrate (Fentanyl 2ml Vial) 50 mcg PRN Q1HR PRN IVP SEVERE PAIN 7-10; Start 09/22/21 at 23:15; Stop 09/23/21 at 23:14; Status DC Acetaminophen (Tylenol) 650 mg PRN Q4HRS PRN PO FEVER > 100.3'F Last administered on 09/23/21at 23:04; Start 09/22/21 at 23:15; Stop 09/23/21 at 23:14; Status DC Albuterol Sulfate (Ventolin Neb Soln) 2.5 mg PRN Q4HRS PRN NEB SHORTNESS OF BREATH; Start 09/22/21 at 23:30 Sodium Chloride 1,000 ml @ 125 mls/hr 1X ONCE IV ; Start 09/22/21 at 23:15; Stop 09/23/21 at 07:14; Status DC Norepinephrine Bitartrate 8 mg/ Dextrose 258 ml @ 40.442 mls/ hr CONT PRN IV PER PROTOCOL Last administered on 09/25/21at 05:27; Start 09/23/21 at 01:45 Sodium Chloride 1,000 ml @ 75 mls/hr [id number] IV Last administered on 09/28/21at 06:14; Start 09/23/21 at 02:15; Stop 09/28/21 at 10:49; Status DC Piperacillin Sod/ Tazobactam Sod (Zosyn Per Pharmacy) 1 each PRN DAILY PRN MC SEE COMMENTS; Start 09/23/21 at 08:45 Piperacillin Sod/ Tazobactam Sod 3.375 gm/Sodium Chloride 50 ml @ 100 mls/hr Q6HRS IV Last administered on 09/27/21at 12:14; Start 09/23/21 at 09:00; Stop 09/27/21 at 13:11; Status DC Enoxaparin Sodium (Lovenox Per Pharmacy Prophylaxis Dosing) 1 each PRN DAILY PRN MC SEE COMMENTS; Start 09/23/21 at 09:00 Enoxaparin Sodium (Lovenox 60mg Syringe) 60 mg Q12HR SQ Last administered on 09/29/21at 08:21; Start 09/23/21 at 09:00 Daptomycin 760 mg/ Sodium Chloride 50 ml @ 100 mls/hr Q24H IV Last admi nistered on 09/25/21at 16:42; Start 09/23/21 at 16:00; Stop 09/26/21 at 12:32; Status DC Insulin Human Lispro (HumaLOG) 0-5 UNITS TIDWMEALS SQ Last administered on 09/29/21at 09:00; Start 09/23/21 at 12:00 Dextrose (Dextrose 50%-Water Syringe) 12.5 gm PRN Q15MIN PRN IV SEE COMMENTS; Start 09/23/21 at 09:15 Sterile Water (WATER for RESP) 2,000 ml CONT PRN INH VIA VAPOTHERM DEVICE Last administered on 09/27/21at 01:35; Start 09/23/21 at 15:30 Magnesium Sulfate 3 gm/Dextrose 106 ml @ 35.333 mls/ hr 1X ONCE IV ; Start 09/23/21 at 15:45; Stop 09/23/21 at 18:44; Status UNV Magnesium Sulfate 50 ml @ 25 mls/hr 1X ONCE IV Last administered on 09/23/21at 19:52; Start 09/23/21 at 16:00; Stop 09/23/21 at 17:59; Status DC Magnesium Sulfate/ Dextrose 100 ml @ 100 mls/hr 1X ONCE IV Last administered on 09/23/21at 16:36; Start 09/23/21 at 18:00; Stop 09/23/21 at 18:59; Status DC Acetaminophen (Tylenol) 650 mg 1X ONCE PO Last administered on 09/24/21at 20:13; Start 09/24/21 at 21:00; Stop 09/24/21 at 21:01; Status DC Magnesium Sulfate 50 ml @ 25 mls/hr PRN DAILY PRN IV for Mag < 1.7 on am labs; Start 09/25/21 at 12:00 Acetaminophen (Tylenol) 650 mg PRN Q6HRS PRN PO MILD PAIN / TEMP > 100.3'F Last administered on 09/29/21at 08:22; Start 09/25/21 at 12:30 Linezolid (Zyvox) 600 mg BID PO Last administered on 09/29/21at 08:21; Start 09/25/21 at 18:00 Multi-Ingredient Ointment (Hydrocerin, Eucerin Cream) 1 jason BID TP Last administered on 09/29/21at 08:22; Start 09/27/21 at 10:30 Piperacillin Sod/ Tazobactam Sod 4.5 gm/Dextrose 100 ml @ 200 mls/hr Q6HRS IV Last administered on 09/29/21at 12:26; Start 09/27/21 at 18:00 Hydralazine HCl (Apresoline Inj) 10 mg PRN Q4HRS PRN IVP ELEVATED BP, SEE COMMENTS Last administered on 09/29/21at 11:14; Start 09/27/21 at 16:45 Clonidine HCl (Catapres Tts-2) 1 patch WEEKLY TD Last administered on 09/27/21at 17:11; Start 09/27/21 at 17:00 Active Scripts Active Benzonatate 200 Mg Capsule 1 Cap PO PRN TID PRN Ventolin Hfa Inhaler (Albuterol Sulfate) 18 Gm Hfa.aer.ad 2 Puff INH Q4HRS Doxycycline Hyclate 100 Mg Capsule 1 Cap PO BID 7 Days Bumetanide 2 Mg Tablet 2 Mg PO BID 30 Days Aspirin Ec (Aspirin) 325 Mg Tablet.dr 325 Mg PO DAILYWBKFT 30 Days [Fluconazole] 100 MG Tablet 400 Mg PO DAILY 10 Days Hydralazine Hcl 50 Mg Tablet 50 Mg PO TID 90 Days K-Tab ER (Potassium Chloride) 20 Meq Tablet.er 20 Meq PO BID 30 Days Reported [Albuterol] Jardiance (Empagliflozin) 25 Mg Tablet 1 Tab PO DAILY One-A-Day Essential (Multivitamin) 1 Each Tablet 1 Tab PO DAILY 30 Days Metformin Hcl 500 Mg Tablet 2 Tab PO BIDWMEALS Carvedilol (Carvedilol) 12.5 Mg Tablet 2 Tab PO BIDWMEALS Lisinopril 20 Mg Tablet 1 Tab PO DAILY Vitals/I & O Vital Sign - Last 24 Hours 09/28/21 09/28/21 09/28/21 09/28/21 15:31 16:00 16:00 17:00 Temp 98.6 98.6 Pulse 99 96 Resp B/P (MAP) 170/87 (114) 177/85 (115) Pulse Ox 97 98 93 O2 Delivery VAPOTHERM Nasal Cannula vapotherm vapotherm O2 Flow Rate 30.0 15.0 15.0 15.0 09/28/21 09/28/21 09/28/21 09/28/21 17:22 18:00 19:00 20:00 Pulse 101 79 Resp B/P (MAP) 159/89 (112) 180/96 (124) Pulse Ox 94 92 91 O2 Delivery High Flow Nasal Cannula vapotherm vapotherm O2 Flow Rate 15.0 15.0 15.0 15.0 09/28/21 09/28/21 09/28/21 09/28/21 20:00 20:00 20:36 21:00 Temp 98.3 98.3 Pulse 99 98 Resp 20 B/P (MAP) 172/83 (112) 162/76 (104) Pulse Ox 93 98 98 O2 Delivery vapotherm Nasal Cannula BiPAP/CPAP vapotherm O2 Flow Rate 15.0 15.0 15.0 09/28/21 09/28/21 09/28/21 09/29/21 22:00 22:37 23:00 00:00 Temp 98.1 98.1 Pulse 98 96 100 Resp 20 20 20 B/P (MAP) 167/81 (109) 152/76 (101) 173/95 (121) Pulse Ox 96 96 96 100 O2 Delivery BiPAP/CPAP BiPAP/CPAP BiPAP/CPAP BiPAP/CPAP O2 Flow Rate 15.0 09/29/21 09/29/21 09/29/21 09/29/21 00:00 00:00 01:00 02:00 Pulse 100 103 Resp 20 20 B/P (MAP) 171/89 (116) 165/96 (119) Pulse Ox 100 91 O2 Delivery Nasal Cannula Nasal Cannula Nasal Cannula O2 Flow Rate 15.0 15.0 15.0 15.0 09/29/21 09/29/21 09/29/21 09/29/21 03:00 04:00 04:00 04:00 Temp 98.9 98.9 Pulse 100 98 Resp 20 20 B/P (MAP) 162/90 (114) 176/91 (119) Pulse Ox 87 90 O2 Delivery vapotherm Nasal Cannula vapotherm O2 Flow Rate 30.0 30.0 15.0 30.0 09/29/21 09/29/21 09/29/21 09/29/21 04:40 05:00 06:00 07:00 Pulse 100 98 98 Resp 20 20 24 B/P (MAP) 179/96 (123) 186/95 (125) 182/92 (122) Pulse Ox 95 93 96 94 O2 Delivery VAPOTHERM vapotherm vapotherm vapotherm O2 Flow Rate 30.0 30.0 30.0 30.0 09/29/21 09/29/21 09/29/21 09/29/21 08:00 08:00 08:06 08:55 Temp 98.5 98.5 Pulse 98 Resp 20 B/P (MAP) 199/96 (130) Pulse Ox 95 98 97 O2 Delivery Vapotherm vapotherm VAPOTHERM VAPOTHERM O2 Flow Rate 30.0 30.0 30.0 30.0 09/29/21 09/29/21 09/29/21 09/29/21 09:00 10:00 11:00 11:14 Pulse 68 96 96 92 Resp 32 18 24 B/P (MAP) 171/91 (117) 176/101 (126) 181/97 (125) 181/97 Pulse Ox 95 94 95 O2 Delivery vapotherm vapotherm vapotherm O2 Flow Rate 30.0 30.0 30.0 09/29/21 09/29/21 09/29/21 4/27/22 11:19 12:00 12:00 12:19 Temp 98.4 98.4 Pulse 68 Resp 27 B/P (MAP) 170/100 (123) Pulse Ox 97 98 96 O2 Delivery VAPOTHERM Vapotherm vapotherm VAPOTHERM O2 Flow Rate 30.0 30.0 30.0 30.0 09/29/21 09/29/21 13:00 14:00 Pulse 98 102 Resp 24 22 B/P (MAP) 171/104 (126) 161/76 (104) Pulse Ox 96 95 O2 Delivery vapotherm vapotherm O2 Flow Rate 30.0 30.0 Intake and Output 09/28/21 09/28/21 09/29/21 15:00 23:00 07:00 Intake Total 480 ml 3270 ml 120 ml Output Total 700 ml 1300 ml 1050 ml Balance -220 ml 1970 ml -930 ml Justifications for Admission Other Justification RAMYA LIRA MD Sep 29, 2021 15:22
--- NOTE | 2021-09-29 15:57 | NUR ---
SS following up with discharge planning. SS reviewed pt chart and discussed with pt RN. Pt accepted at [facility], ; fax [phone]. Insurance authorization received. Pt agreeable to transfer to [facility]. Dr. Kay notified. Discharge orders received and sent to [facility]. Pt will discharge today and go to [facility] at 1900 via [facility] transport, . Packet and ambulance form on the chart.
--- NOTE | 2021-10-04 22:06 | PDOC ---
Provider Note Date of Service: DATE: 10/04/21 TIME: 22:05 Provider Note discharge summary dictated.#[id number]. Justifications for Admission Other Justification ANT LICEA MD October 04, 2021 22:06
--- NOTE | 2021-10-04 22:34 | DS ---
DATE OF DISCHARGE: 09/29/2021 REASON FOR ADMISSION TO THE HOSPITAL: Hypercapnic acute respiratory failure, pneumonia. CONSULTATIONS: 1. Dr. Alva. 2. Dr. Wilson, Infectious Disease. 3. Dr. ANTONY, kidney doctor. 4. Dr. Arrieta, Rehab. PROCEDURES DONE: 1. CT chest. 2. BiPAP placement. 3. CT of the abdomen and pelvis. HOSPITAL COURSE: The patient is a 51-year-old male with history of obesity, has diabetes, sleep apnea, he is not tolerating CPAP at home. He had an episode of pneumonia a month ago, went to the Emergency Room, was treated with antibiotics, was treated for outpatient pneumonia, was discharged. The patient was having fevers and chills, was admitted with a diagnosis of acute respiratory failure. X-ray shows pneumonia, right lung. The patient was placed on BiPAP. The patient was hypotensive, had lactic acidosis and admitted to the ICU. He was given fluid challenge. He was started on Levophed. The patient was placed on BiPAP. His white count was high, peaked to 38,000. At admission, blood gas showed pH 7.25, pCO2 of 77, pO2 of 85, bicarbonate 53 on 4 liters nasal cannula. Urine negative. The patient had COVID vaccination. Influenza test was negative. COVID test negative. His blood culture was negative. Urine culture was negative. X-ray showed pneumonia in the right lung; CT scan showed pneumonia; couple of days later, repeat CT scan showed pneumonia, right middle and lower lobes; and also, CT scan of the abdomen showed gallstones, which was asymptomatic. The patient did improve with broad-spectrum antibiotics, was treated with daptomycin and Zosyn, seen by Infectious Disease, seen by Pulmonology. The patient did improve with antibiotics. White count came down to less than 10,000. The patient was requiring 20 liters of oxygen; later on, cut down to 10 liters; and it was felt that the patient would need LTAC facility, he was discharged to LTAC. The patient also had a creatinine of 2.7; his normal creatinine is around 1.5. His lactic acid was high, hypotensive, it was thought secondary to ATN. The patient was seen by Renal. His creatinine came down to 2.1 from 2.7. FINAL DIAGNOSES: 1. Acute hypercapnic respiratory failure. 2. Pneumonia, right lung, suspect gram-negative. 3. Acute kidney failure secondary to acute tubular necrosis. 4. Lactic acidosis. 5. Sepsis from pneumonia. 6. Morbid obesity. 7. Diabetes. 8. Diastolic heart failure. DISPOSITION: LTAC facility. See MRAD for discharge medications. DVT prophylaxis with Lovenox. MELISSA DR: Yee TID: [id number]
== END 2021-09-29 19:00 | DRG 871 ==
LOC: ER 20:46 → 1 WEST ICU 23:00
PROVIDERS: ADMIT Internal Medicine; ATTEND Internal Medicine
PROC: 5A09357 Assistance with Respiratory Ventilation, Less than 24 Consecutive Hours, Continuous Positive Airway Pressure (ICD-10-PCS; principal; 2021-09-22)
PROC: 5A09357 Assistance with Respiratory Ventilation, Less than 24 Consecutive Hours, Continuous Positive Airway Pressure (ICD-10-PCS; 2021-09-23)
PROC: 5A09357 Assistance with Respiratory Ventilation, Less than 24 Consecutive Hours, Continuous Positive Airway Pressure (ICD-10-PCS; 2021-09-24)
PROC: 5A09357 Assistance with Respiratory Ventilation, Less than 24 Consecutive Hours, Continuous Positive Airway Pressure (ICD-10-PCS; 2021-09-24)
PROC: 5A09357 Assistance with Respiratory Ventilation, Less than 24 Consecutive Hours, Continuous Positive Airway Pressure (ICD-10-PCS; 2021-09-26)
PROC: 5A09357 Assistance with Respiratory Ventilation, Less than 24 Consecutive Hours, Continuous Positive Airway Pressure (ICD-10-PCS; 2021-09-27)
PROC: 5A0935A Assistance with Respiratory Ventilation, Less than 24 Consecutive Hours, High Flow/Velocity Cannula (ICD-10-PCS; 2021-09-28)
PROC: 5A0935A Assistance with Respiratory Ventilation, Less than 24 Consecutive Hours, High Flow/Velocity Cannula (ICD-10-PCS; 2021-09-29)
DX: A41.9 Sepsis, unspecified organism (principal); J96.21 Acute and chronic respiratory failure with hypoxia; J18.9 Pneumonia, unspecified organism; J96.22 Acute and chronic respiratory failure with hypercapnia; N17.0 Acute kidney failure with tubular necrosis; E46 Unspecified protein-calorie malnutrition; I13.0 Hypertensive heart and chronic kidney disease with heart failure and stage 1 through stage 4 chronic kidney disease, or unspecified chronic kidney disease; I50.32 Chronic diastolic (congestive) heart failure; J44.0 Chronic obstructive pulmonary disease with (acute) lower respiratory infection; Z68.44 Body mass index [BMI] 60.0-69.9, adult; E11.22 Type 2 diabetes mellitus with diabetic chronic kidney disease; E11.42 Type 2 diabetes mellitus with diabetic polyneuropathy; E66.01 Morbid (severe) obesity due to excess calories; E78.5 Hyperlipidemia, unspecified; G47.33 Obstructive sleep apnea (adult) (pediatric); I27.81 Cor pulmonale (chronic); E66.9 Obesity, unspecified; M19.90 Unspecified osteoarthritis, unspecified site; M17.0 Bilateral primary osteoarthritis of knee; N18.9 Chronic kidney disease, unspecified; Z20.822 Contact with and (suspected) exposure to COVID-19; Z82.49 Family history of ischemic heart disease and other diseases of the circulatory system; Z83.3 Family history of diabetes mellitus; Z87.891 Personal history of nicotine dependence; Z88.5 Allergy status to narcotic agent
CPT/HCPCS: 36415; 36600; 71045; 71250; 74176; 80048; 80053; 80069; 81001; 82550; 82805; 82962; 83605; 83735; 83880; 84100; 84300; 84484; 85007; 85025; 87040; 87086; 87428; 93005; 94640; 94660; 94760; 96374; G0238; J0360; J0696; J0878; J1650; J1815; J2405; J2543; J3475; J3490; J7030; J7060; U0003; 97530-GO; 97530-GP; 97535-GO; 99285-25; G0378